=== PATIENT | female | born 1945 | race Caucasian/White ===

== ENCOUNTER → 2018-01-04 | Day surgery (SDC) | payer MEDICARE, OTHER ==
[~2018-01-04] MED LIST: ALBU2TAB PO; ALPR0.5T6 PO; ALUM1GRA MC; AMLO5TAB7 PO; ASCO500T3 PO; ASPI-252 PO; ASPI-482 PO; ATOR10TA60 PO; BUPR150T8 PO; BUPR1PAT8 TP; BUPR75TA5 PO; BUSP10TA PO; CARB200T PO; CARB25PO MC; CARV3.12 PO; CARV3.122 PO; CELE200C PO; CETI10CA PO; CETI10TA22 PO; CHOL100013 PO; CHOL500016 PO; CLON0.5T PO; CLOP75TA PO; CYAN10005 PO; CYCL10TA2 PO; DEXL60CA2 PO; DICL100G18 TP; DICL112S2 TP; DOCU100C28 PO; DOCU50CA6 PO; DULO20CA PO; DULO20CA17 PO; DULO60CA6 PO; Domperidone PO; ERYT250C8 PO; FENO43CA PO; FLUT9.9S NS; GABA-586 PO; GABA600T2 PO; GABA800T2 PO; HYDR-2758 PO; HYDR10TA2 PO; HYDR25TA PO; INSU100C4 SQ; INSU100I13 SQ; INSU100I27 SQ; INSU100V8 SQ; IPRA3AMP29 NEB; IV RINGERS,LACTATED 1000ML 1,000 ML IV SCH; LEVO500T59 PO; LIDOCAINE 1% PF 2 ML VIAL. ID PRN; LIDOCAINE 2% PF Vial for OR 5 ML VIAL. ONE; LISI-338 PO; LOPE2CAP PO; LOPE2TAB27 PO; LOSA25TA5 PO; MELO15TA23 PO; METF500T25 PO; METO25TA4 PO; METO50TA6 PO; MG T1TAB PO; MIRT15TA PO; MIRT15TA3 PO; MONT10TA6 PO; MONT10TA9 PO; MULT1TAB52 PO; NORT25CA PO; OMEG1CAP6 PO; OMEG300C PO; OMEP10CA3 PO; ONDA4TAB12 PO; PANT20TA2 PO; PNV1TABL25 PO; POLY17PO29 PO; POLY1GRA MC; PROAIR HFA8.5 GM IH; PROCHLORPERAZINE 10 MG/2 ML VIAL. IV PRN; PROM25TA10 PO; PROPOFOL 40 ML IV ONE; RANI150T2 PO; ROPI1TAB2 PO; SIMV10TA3 PO; SIMV5TAB PO; SODI650T PO; SUCR1TAB PO; SUMA50TA3 PO; TELM1TAB PO; TELM20TA PO; TELM80TA PO; TELM80TA8 PO; TIZA4TAB PO; TOPI25TA52 PO; TRI-SPRINTEC PO; ZONI100C PO
[2018-01-04 09:13] VITALS: BP 110/55
--- NOTE | 2018-01-07 15:08 | PATHOLOGY ---
[facility] Accession Number: [id number] . 01 Material submitted: . RANDOM COLON BIOPSY . 01 Clinical history: . Diarrhea . 02 Diagnosis: Random colon, biopsies: - Acute colitis, mild and focal. - No granulomas, architectural distortion, or features of chronicity identified. - See comment. [facility];01/07/2018 AGA/01/07/2018 . 02 Comment: A focal mild acute colitis is present. Granulomas, architectural distortion and other features of chronicity are not identified. The above findings can be observed in bowel preparation, infection, and an evolving inflammatory bowel disease. Definite features of microscopic colitis or inflammatory bowel disease are not identified. Clinical correlation is recommended. [facility];01/07/2018 . 02 Electronically signed: . Jas Urrutia MD, Pathologist NPI- [id number] . 01 Gross description: . Received in formalin labeled "Naomi Alberto, random colon BX," are multiple segments of sheets soft tissue measuring 1.6 x 0.4 x 0.1 cm in aggregate dimensions. The specimen is filtered and submitted entirely in cassette A1. (TSD; 01/04/2018) TOB/TOB . 02 Pathologist provided ICD-10: K52.9 . 02 CPT . 544163 Specimen Comment: A courtesy copy of this report has been sent to Specimen Comment: [phone], . Specimen Comment: Report sent to / DR SANDERS Performed at: 01 [facility] [address], [place], [place] [id number] MD Varinder Ramesh MD Phone: [phone] Performed at: [address] [id number] MD Naomi Temple MD Phone: [phone]
== END | disposition home or self-care (01) ==
LOC: ENDOS 07:14
PROVIDERS: ATTEND Internal Medicine Gastroenterology
DX: K64.0 First degree hemorrhoids (principal); F41.9 Anxiety disorder, unspecified; J45.909 Unspecified asthma, uncomplicated; F32.9 Major depressive disorder, single episode, unspecified; E11.9 Type 2 diabetes mellitus without complications; K21.9 Gastro-esophageal reflux disease without esophagitis; Z88.5 Allergy status to narcotic agent; Z88.8 Allergy status to other drugs, medicaments and biological substances; I25.2 Old myocardial infarction; D64.9 Anemia, unspecified; M19.90 Unspecified osteoarthritis, unspecified site; K58.9 Irritable bowel syndrome, unspecified; Z95.5 Presence of coronary angioplasty implant and graft; Z83.3 Family history of diabetes mellitus; Z79.82 Long term (current) use of aspirin; Z79.84 Long term (current) use of oral hypoglycemic drugs; Z79.899 Other long term (current) drug therapy; Z90.49 Acquired absence of other specified parts of digestive tract; Z90.710 Acquired absence of both cervix and uterus; Z98.890 Other specified postprocedural states
CPT/HCPCS: 45380; J2001; J2704; 82962; 88305

== ENCOUNTER 2018-11-08 14:56 | Inpatient (IN) | payer MEDICARE, OTHER ==
[~2018-11-08] VITALS: Ht 144.8 cm; Wt 72.6 kg
[2018-11-08] VITALS (8 sets, daily range): BP systolic 117–177; BP diastolic 57–94
[~2018-11-08 14:56] MED LIST changes: +ALBU2.5V8 IH; +AMLO5TAB10 PO; -AMLO5TAB7 PO; +AMOX1TAB11 PO; +CARV3.1210 PO; -CARV3.122 PO; +DOXY100T PO; -GABA-586 PO; +GABA300C18 PO; -GABA600T2 PO; +GABA600T7 PO; -GABA800T2 PO; +GABA800T5 PO; -HYDR-2758 PO; +HYDR-2761 PO; -IV RINGERS,LACTATED 1000ML 1,000 ML IV SCH; -LIDOCAINE 1% PF 2 ML VIAL. ID PRN; -LIDOCAINE 2% PF Vial for OR 5 ML VIAL. ONE; -LOSA25TA5 PO; +LOSA25TA54 PO; +MONT10TA49 PO; -MONT10TA6 PO; -MONT10TA9 PO; -OMEP10CA3 PO; +OMEP10CA4 PO; -PROAIR HFA8.5 GM IH; -PROCHLORPERAZINE 10 MG/2 ML VIAL. IV PRN; -PROPOFOL 40 ML IV ONE
[2018-11-08 15:13] LABS: BASO # 0.2 x10^3/uL (0.0-0.2); BASO % 1 % (0-3); EOS # 0.4 x10^3/uL (0.0-0.7); EOS % 2 % (0-3); HEMATOCRIT 37.1 % (36.0-47.0); HEMOGLOBIN 12.4 g/dL (12.0-15.5); LYMPH # 5.6 x10^3/uL (1.0-4.8); LYMPH % 34 % (24-48); MEAN CORPUSCULAR HEMOGLOBIN 30 pg (25-35); MEAN CORPUSCULAR HGB CONC 33 g/dL (31-37); MEAN CORPUSCULAR VOLUME 91 fL (79-100); MONO # 1.3 x10^3/uL (0.0-1.1); MONO % 8 % (0-9); NEUT % 55 % (31-73); PLATELET COUNT 565 x10^3/uL (140-400); RED BLOOD COUNT 4.08 x10^6/uL (3.50-5.40); RED CELL DISTRIBUTION WIDTH 14.9 % (11.5-14.5); WHITE BLOOD COUNT 16.5 x10^3/uL (4.0-11.0)
[2018-11-08 15:23] LABS: PROTHROMBIN TIME PATIENT 14.1 SEC (11.7-14.0)
--- NOTE | 2018-11-08 15:35 | RAD ---
EXAM: CHEST 1 VIEW History: Chest pain COMPARISON: 01/08/2018 TECHNIQUE: Single portable radiograph of the chest FINDINGS: The cardiac silhouette is unremarkable. The lungs are clear bilaterally. The costophrenic sulci are clear and well demarcated. IMPRESSION: No radiographic evidence of an acute cardiopulmonary process. Electronically signed by: You Perez MD (11/08/2018 3:32 PM) [id number]
[2018-11-08 15:38] LABS: CALCIUM 9.8 mg/dL (8.5-10.1); CREATININE 1.2 mg/dL (0.6-1.0); POTASSIUM 3.4 mmol/L (3.5-5.1)
[2018-11-08 15:51] LABS: ALBUMIN/GLOBULIN RATIO 0.7 (1.0-1.7); MAGNESIUM 1.3 mg/dL (1.8-2.4); TOTAL BILIRUBIN 0.2 mg/dL (0.2-1.0); TOTAL PROTEIN 9.4 g/dL (6.4-8.2)
--- NOTE | 2018-11-08 16:00 | PHYS DOC ---
Past Medical History Past Medical History: Asthma, Diabetes-Type I, High Cholesterol, Hypertension, FL Additional Past Medical Histor: unknown Past Surgical History: Hysterectomy, Splenectomy, Other Additional Past Surgical Histo: HERNIA,2 STENTS Alcohol Use: None Drug Use: None Adult General Chief Complaint Chief Complaint: CHEST PAIN HPI HPI Patient is a 73 year old female who brought in by EMS because of chest pain. Patient complaining of intermittent episodes of substernal bilateral chest pain for the last 3 day that last for several minutes and repeated frequency with radiation to her back. Patient rated her pain 9/10 during episodes of pain and denies chest pain at arrival to ER. Patient complaining of shortness of breath and palpitation and generalized weakness without fever and chills, nausea and vomiting, focal neuro deficit. Patient was seen by his primary care physician office and had EKG that showed ST elevation in V1 and DIII and 911 was called and sent to ER for evaluation. Patient had Nitro spray at primary care physician office with resulting care chest pain. Patient also had total of 324 mg of baby aspirin given by primary care physician and EMS. Patient had history of FL in October 2017 and had 2 stent placement. Review of Systems Review of Systems Constitutional: Denies fever or chills [] Eyes: Denies change in visual acuity, redness, or eye pain [] HENT: Denies nasal congestion or sore throat [] Respiratory: Denies cough, reports shortness of breath [] Cardiovascular: No additional information not addressed in HPI [] GI: Denies abdominal pain, nausea, vomiting, bloody stools or diarrhea [] : Denies dysuria or hematuria [] Musculoskeletal: Denies back pain or joint pain [] Integument: Denies rash or skin lesions [] Neurologic: Denies headache, focal weakness or sensory changes [] Endocrine: Denies polyuria or polydipsia [] All other systems were reviewed and found to be within normal limits, except as documented in this note. Current Medications Current Medications Current Medications Medications (Trade) Dose Ordered Sig/Morgan Start Time Stop Time Status Last Admin Dose Admin Heparin Sodium (Porcine) (Heparin Sodium) 1,650 unit PRN Q6HRS PRN 11/08/18 16:00 Heparin Sodium/ Dextrose 500 ml @ 0 mls/hr CONT PRN 11/08/18 16:00 11/08/18 16:08 12 MLS/HR Allergies Allergies Allergies Coded Allergies Type Severity Reaction Last Updated Verified grapefruit Allergy Intermediate 01/04/18 Yes hydromorphone Allergy Intermediate 01/04/18 Yes metoclopramide Allergy Intermediate 01/04/18 Yes morphine Allergy Intermediate BROKE OUT WITH RASH 01/04/18 Yes phenytoin Allergy Intermediate 01/04/18 Yes ropinirole Allergy Intermediate 01/04/18 Yes temazepam Allergy Intermediate 01/04/18 Yes trazodone Allergy Intermediate 01/04/18 Yes zolpidem Allergy Intermediate 01/04/18 Yes Physical Exam Physical Exam Constitutional: Well developed, well nourished, mild distress, non-toxic appearance. [] HENT: Normocephalic, atraumatic, oropharynx moist. Eyes: PERRLA, EOMI, conjunctiva normal, no discharge. [] Neck: Normal range of motion, no tenderness, supple, no stridor. [] Cardiovascular: Tachycardia, no murmur [] Lungs & Thorax: Bilateral breath sounds clear to auscultation [] Abdomen: Bowel sounds normal, soft, no tenderness, no masses, no pulsatile masses, large ventral hernia. [] Skin: Warm, dry, no erythema, no rash. [] Back: No tenderness, no CVA tenderness. [] Extremities: No tenderness, no cyanosis, no clubbing, ROM intact, no edema. [] Neurologic: Alert and oriented X 3, normal motor function, normal sensory function, no focal deficits noted. [] Psychologic: Affect normal, judgement normal, mood normal. [] Current Patient Data Vital Signs Vital Signs Date Time Temp Pulse Resp B/P (MAP) Pulse Ox O2 Delivery O2 Flow Rate FiO2 11/08/18 14:56 98.7 114 18 207/95 (132) 97 Room Air 98.7 Lab Values Laboratory Tests Test 11/08/18 14:58 White Blood Count 16.5 x10^3/uL (4.0-11.0) H Red Blood Count 4.08 x10^6/uL (3.50-5.40) Hemoglobin 12.4 g/dL (12.0-15.5) Hematocrit 37.1 % (36.0-47.0) Mean Corpuscular Volume 91 fL (79-100) Mean Corpuscular Hemoglobin 30 pg (25-35) Mean Corpuscular Hemoglobin Concent 33 g/dL (31-37) Red Cell Distribution Width 14.9 % (11.5-14.5) H Platelet Count 565 x10^3/uL (140-400) H Neutrophils (%) (Auto) 55 % (31-73) Lymphocytes (%) (Auto) 34 % (24-48) Monocytes (%) (Auto) 8 % (0-9) Eosinophils (%) (Auto) 2 % (0-3) Basophils (%) (Auto) 1 % (0-3) Neutrophils # (Auto) 9.0 x10^3/uL (1.8-7.7) H Lymphocytes # (Auto) 5.6 x10^3/uL (1.0-4.8) H Monocytes # (Auto) 1.3 x10^3/uL (0.0-1.1) H Eosinophils # (Auto) 0.4 x10^3/uL (0.0-0.7) Basophils # (Auto) 0.2 x10^3/uL (0.0-0.2) Prothrombin Time 14.1 SEC (11.7-14.0) H Prothrombin Time INR 1.1 (0.8-1.1) Sodium Level 136 mmol/L (136-145) Potassium Level 3.4 mmol/L (3.5-5.1) L Chloride Level 98 mmol/L (98-107) Carbon Dioxide Level 21 mmol/L (21-32) Anion Gap 17 (6-14) H Blood Urea Nitrogen 25 mg/dL (7-20) H Creatinine 1.2 mg/dL (0.6-1.0) H Estimated GFR (Cockcroft-Gault) 44.0 BUN/Creatinine Ratio 21 (6-20) H Glucose Level 246 mg/dL (70-99) H Lactic Acid Level 4.2 mmol/L (0.4-2.0) *H Calcium Level 9.8 mg/dL (8.5-10.1) Magnesium Level 1.3 mg/dL (1.8-2.4) L Total Bilirubin 0.2 mg/dL (0.2-1.0) Aspartate Amino Transferase (AST) 81 U/L (15-37) H Alanine Aminotransferase (ALT) 30 U/L (14-59) Alkaline Phosphatase 84 U/L (46-116) Creatine Kinase 378 U/L (26-192) H Creatine Kinase MB (Mass) 23.4 ng/mL (0.0-3.6) H Creatine Kinase MB Relative Index 6.2 % (0-4) H Troponin I Quantitative 28.899 ng/mL (0.000-0.055) PZ-Zrj-I-Type Natriuretic Peptide 4244 pg/mL (0-124) H Total Protein 9.4 g/dL (6.4-8.2) H Albumin 4.0 g/dL (3.4-5.0) Albumin/Globulin Ratio 0.7 (1.0-1.7) L Lipase 125 U/L (73-393) Laboratory Tests 11/08/18 14:58 Laboratory Tests 11/08/18 14:58 EKG EKG Take interpreted by me. EKG at 1456 showed sinus tachycardia at rate of 115, left fourth axis, LVH, mild ST elevation in V1 and lead [address]-T elevation at V2, no reciprocal changes. Radiology/Procedures Radiology/Procedures [][facility] [address] [place] [address] IMAGING REPORT Signed PATIENT: ALDA CORRAL ACCOUNT: [id number] : 1945 LOCATION: ER AGE: 73 SEX: F EXAM STATUS: PRE ER ORD. PHYSICIAN: JANETTE PORTER MD REASON: chest pain, SOA PROCEDURE: PORTABLE CHEST 1V EXAM: CHEST 1 VIEW History: Chest pain COMPARISON: 01/08/2018 TECHNIQUE: Single portable radiograph of the chest FINDINGS: The cardiac silhouette is unremarkable. The lungs are clear bilaterally. The costophrenic sulci are clear and well demarcated. IMPRESSION: No radiographic evidence of an acute cardiopulmonary process. Electronically signed by: You Perez MD (11/08/2018 3:32 PM) [id number] DICTATED and SIGNED BY: YOU PEREZ MD DATE: 11/08/18 1533 Course & Med Decision Making Course & Med Decision Making Pertinent Labs and Imaging studies reviewed. (See chart for details) Evaluation of patient in ER showed 73-year-old female patient brought in by EMS from doctor's office because of chest pain for 3 days without chest pain at arrival to ER. EKG ST elevation in V1 and V3 and cardioversion call was consulted at 1517 and cardiology nurse practitioner presented to ER and evaluated the patient. Patient had elevation of on cardiac enzymes and lactic acid of 4.2. Patient did not have fever or hypotension and most likely her lactic acid was elevated because of poor circulation therefore IV fluid was not given and only antibiotic was started. Dr. Zepeda presented to ER and evaluated the patient and recommended to start heparin bolus and drip and nitro drip. She was chest pain-free while she was in ER. Dr. Zepeda did not recommend cardiac catheterization today.Patient requiring admission for further evaluation and treatment. Discussed with Dr. Shah who is in agreement with admission. Discussed findings and plan with patient and family, who acknowledge understanding and agreement. Dragon Disclaimer Dragon Disclaimer This electronic medical record was generated, in whole or in part, using a voice recognition dictation system. Departure Departure Impression: Primary Impression: NSTEMI (non-ST elevated myocardial infarction) Additional Impressions: Hypomagnesemia Renal insufficiency Uncontrolled diabetes mellitus Severe sepsis Congestive heart failure Disposition: ADMITTED INPATIENT (admitted at 1608) Admitting Physician: RINS (dr Shah accepted admission at 1607) Condition: GUARDED Referrals: NIDIA SANDERS MD (PCP) The HEART Score for CP Pts HEART Score for Chest Pain: HEART Score for Chest Pain Response (Comments) Value History Moderately Suspicious [address] Depression 2 Age > 65 2 Risk Factors >3 Risk Factors or Hx CAD 2 Troponin >3 x Normal Limit 2 Total 9 Risk Factors: Risk Factors: DM, Current or recent (<one month) smoker, HTN, HLP, family history of CAD, obesity. Risk Scores: Score 0 - 3: 2.5% MACE over next 6 weeks - Discharge Home Score 4 - 6: 20.3% MACE over next 6 weeks - Admit for Clinical Observation Score 7 - 10: 72.7% MACE over next 6 weeks - Early Invasive Strategies Critical Care Time Critical care time was 90 minutes exclusive of procedures. Date and Time of Reassessment Date: Nov 08, 2018 Time: 16:10 Fluid Challenge Is the fluid challenge complet: No (because of acute non-STEMI IV fluid challenge was not started.) IBW Target Volume Used: No BMI > 30: No Vital Signs Vital Signs: Vital Signs Date Time Temp Pulse Resp B/P (MAP) Pulse Ox O2 Delivery O2 Flow Rate FiO2 11/08/18 14:56 98.7 114 18 207/95 (132) 97 Room Air 98.7 Temperature Source: Oral Cardiovascular Pulse Rhythm: Regular Heart: No rubs, clicks or gallop, S1 and S2 normal Lung Sounds Breath Sounds: Clear Capillary Refil Capillary Refill: Rt Hand < 3 seconds Peripheral Pulse Pulse Location: Radial Pulse Strength: Normal (2+) Pulse Assessment Method: NIBP Problem Qualifiers Additional Impressions: Uncontrolled diabetes mellitus Diabetes mellitus type: other specified (including ZACH) Glycemic state: with hyperglycemia Qualified Codes: E13.65 - Other specified diabetes mellitus with hyperglycemia Congestive heart failure Heart failure type: unspecified Heart failure chronicity: unspecified Qualified Codes: I50.9 - Heart failure, unspecified JANETTE PORTER MD Nov 08, 2018 16:00
[2018-11-08] MEDS: HEPARIN 25,000UTS/500ML PREMIX 500 ML IV PRN (16:08)
[2018-11-08] MEDS ORDERED: MAGNESIUM SULFATE 4GM 100 ML IV ONE (16:15)
[2018-11-08] MEDS ORDERED: PIPERACILLIN/TAZOBACTAM 3.375 GM in IV NORMAL SALINE 50ML 50 ML IV ONE (16:15)
[2018-11-08] MEDS ORDERED: LABETALOL 20 MG/4 ML DISP.SYRIN. IVP ONE (16:15)
[2018-11-08] MEDS ORDERED: HEPARIN for IV BOLUS 10,000 UNIT/10 ML VIAL. IV ONE (16:15)
[2018-11-08] MEDS ORDERED: POTASSIUM CHLORIDE 20 MEQ TABLET.ER. PO ONE (16:15)
[2018-11-08] MEDS ORDERED: IV NORMAL SALINE 1000ML BAG 1,000 ML IV ONE (16:15)
[2018-11-08] MEDS ORDERED: NITROGLYCERIN PREMIX 250 ML IV ONE ×2 (16:15)
--- NOTE | 2018-11-08 16:22 | PDOC2 ---
CARDIAC CONSULT DATE OF CONSULT Date of Consult DATE: 11/08/18 TIME: 16:03 REASON FOR CONSULT Reason for Consult: Chest pain REFERRING PHYSICIAN Referring Physician: Leeann SOURCE Source: Chart review, Patient HISTORY OF PRESENT ILLNESS HISTORY OF PRESENT ILLNESS This is a pleasant 73 yo female admitted for complains of chest pain. Reports that her symptoms started 3 days ago. She has been having intermittent left c hest tightness, left side shoulder tightness and gums aching with associated SOA and nausea and diaphoresis. Reports she had a nontraumatic fall Sunday not because of dizziness but she missed her footing and fell. No passing out and no palpitations. She went to her PCP today as her symptoms have been increasing and has not let her go to sleep especially last night. EKG was done at her PCPs office and was told that it was abnormal and she needed to go to ED via ambulance. She was given NTG spray and ASA. Her symptoms got a little better after the NTG. 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 See report as noted below. She has been doing well since then till this week. 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) FAMILY HISTORY Family History: Coronary Artery Disease (mother) SOCIAL HISTORY Smoke: No ALCOHOL: none Drugs: None Lives: with Family ALLERGIES ALLERGIES: Coded Allergies: grapefruit (Verified Allergy, Intermediate, 01/04/18) hydromorphone (Verified Allergy, Intermediate, 01/04/18) metoclopramide (Verified Allergy, Intermediate, 01/04/18) morphine (Verified Allergy, Intermediate, BROKE OUT WITH RASH, 01/04/18) phenytoin (Verified Allergy, Intermediate, 01/04/18) ropinirole (Verified Allergy, Intermediate, 01/04/18) TOLERATES ROPINIROLE temazepam (Verified Allergy, Intermediate, 01/04/18) Tolerates alprazolam trazodone (Verified Allergy, Intermediate, 01/04/18) zolpidem (Verified Allergy, Intermediate, 01/04/18) ROS Review of System 14 point ROS evaluated with pertinent positives noted per HPI PHYSICAL EXAM General: Alert, Oriented X3, Cooperative, No acute distress HEENT: Atraumatic, Mucous membr. moist/pink Lungs: Clear to auscultation, Normal air movement Heart: Regular rate (SR/ST), Normal S1, Normal S2, Other (S3; 3/6 systolic murmur to MAGGY border) Abdomen: Soft, No tenderness Extremities: No cyanosis, No edema Skin: No breakdown, No significant lesion Neuro: Normal speech, Sensation intact Psych/Mental Status: Mental status NL, Mood NL MUSCULOSKELETAL: Osteoarthritic changes both hands VITALS/I&O VITALS/I&O: Vital Signs Date Time Temp Pulse Resp B/P (MAP) Pulse Ox O2 Delivery O2 Flow Rate FiO2 11/08/18 14:56 98.7 114 18 207/95 (132) 97 Room Air 98.7 LABS Lab: Laboratory Tests Test 11/08/18 14:58 White Blood Count 16.5 x10^3/uL (4.0-11.0) H Red Blood Count 4.08 x10^6/uL (3.50-5.40) Hemoglobin 12.4 g/dL (12.0-15.5) Hematocrit 37.1 % (36.0-47.0) Mean Corpuscular Volume 91 fL (79-100) Mean Corpuscular Hemoglobin 30 pg (25-35) Mean Corpuscular Hemoglobin Concent 33 g/dL (31-37) Red Cell Distribution Width 14.9 % (11.5-14.5) H Platelet Count 565 x10^3/uL (140-400) H Neutrophils (%) (Auto) 55 % (31-73) Lymphocytes (%) (Auto) 34 % (24-48) Monocytes (%) (Auto) 8 % (0-9) Eosinophils (%) (Auto) 2 % (0-3) Basophils (%) (Auto) 1 % (0-3) Neutrophils # (Auto) 9.0 x10^3/uL (1.8-7.7) H Lymphocytes # (Auto) 5.6 x10^3/uL (1.0-4.8) H Monocytes # (Auto) 1.3 x10^3/uL (0.0-1.1) H Eosinophils # (Auto) 0.4 x10^3/uL (0.0-0.7) Basophils # (Auto) 0.2 x10^3/uL (0.0-0.2) Prothrombin Time 14.1 SEC (11.7-14.0) H Prothrombin Time INR 1.1 (0.8-1.1) Sodium Level 136 mmol/L (136-145) Potassium Level 3.4 mmol/L (3.5-5.1) L Chloride Level 98 mmol/L (98-107) Carbon Dioxide Level 21 mmol/L (21-32) Anion Gap 17 (6-14) H Blood Urea Nitrogen 25 mg/dL (7-20) H Creatinine 1.2 mg/dL (0.6-1.0) H Estimated GFR (Cockcroft-Gault) 44.0 BUN/Creatinine Ratio 21 (6-20) H Glucose Level 246 mg/dL (70-99) H Calcium Level 9.8 mg/dL (8.5-10.1) Magnesium Level 1.3 mg/dL (1.8-2.4) L Total Bilirubin 0.2 mg/dL (0.2-1.0) Aspartate Amino Transferase (AST) 81 U/L (15-37) H Alanine Aminotransferase (ALT) 30 U/L (14-59) Alkaline Phosphatase 84 U/L (46-116) Creatine Kinase 378 U/L (26-192) H Creatine Kinase MB (Mass) 23.4 ng/mL (0.0-3.6) H Creatine Kinase MB Relative Index 6.2 % (0-4) H Troponin I Quantitative 28.899 ng/mL (0.000-0.055) WT-Yld-U-Type Natriuretic Peptide 4244 pg/mL (0-124) H Total Protein 9.4 g/dL (6.4-8.2) H Albumin 4.0 g/dL (3.4-5.0) Albumin/Globulin Ratio 0.7 (1.0-1.7) L Lipase 125 U/L (73-393) Laboratory Tests 11/08/18 14:58 Laboratory Tests 11/08/18 14:58 HEART CATH HEART CATH Access: Under 2% lidocaine local anesthesia a 6 Kiswahili introducer sheath was placed in the right common femoral artery via the modified Seldinger technique using an 18-gauge needle and a J-tipped guidewire. Heparin weight-based bolus dosing was used to achieve and maintain an ACT greater than 200. The patient received 1 bolus of tirofiban. The patient was previously loaded with aspirin and Plavix. Subsequently a 6 Kiswahili EBU 3.5 guide catheter was engaged into the left main and repeat angiography confirmed previous LAD stenoses. Next, a 0.014 inch pro- water wire was used to traverse the proximal LAD stenosis and this was angiopl astied multiple times with a 2.0 x 20, 2.5 x 12 and 3.0 x 12 mm compliant and noncompliant balloons. Ultimately, a 2.5 x 28 mm Alpine drug-eluting stent was able to be delivered with the use of a guideliner with excellent expansion and distal ISHAAN-3 flow. A 80-90% apical LAD stenosis was then noted in the vessel segment that was approximately 2 mm. Due to the apical LAD providing collaterals to the RCA it was felt that angioplasty of the's lesion would be beneficial for long-term management. Due to significant tortuosity and plaque there was difficulty navigating this lesion and therefore a Choice PT wire was used and ultimately this was also angioplastied with a 2.0 x 12 mm balloon and stented with a 2.25 x 15 mm Alpine drug-eluting stent. Final post-PCI angiography demonstrated excellent stent expansion in the proximal and apical LAD with ISHAAN- 3 flow in the vessel and no evidence of guide or wire related complications. There was residual disease of 80% noted in the inferior branch of the first obtuse marginal which is also a vessel approximately 2 mm in size and a proximal 60% stenosis in the first diagonal. In light of contrast use, chronic kidney disease and lack of any significant chest pain these lesions were deferred for intervention at this time. Limited angiography of the right common femoral artery revealed adequate vessel size for closure device and this was closed with an Angio-Seal product. The patient tolerated the procedure well and there were no immediate complications. Contrast load 150 mL of Visipaque. This case was complex due to significant calcification requiring the use of a guideliner and tortuosity of the vessel. Conclusion 1. Successful complex PCI of severe calcified proximal and apical LAD disease with implantation of a 2.5 x 28 mm and 2.25 x 15 mm Alpine drug-eluting stents. Recommendations Aspirin 81 mg daily indefinitely. Plavix 75 DAILY indefinitely if tolerated, otherwise would recommend at least 3 months of therapy. Continue statin therapy and referral for cardiac rehabilitation. Monitor for renal sufficiency given to contrast load to the last 48 hours. DATE: 11/01/17 1110 LEFT VENTRICULOGRAM: Deferred due to prior history of renal insufficiency. CORONARY ANGIOGRAPHY: LM is a moderate short caliber vessel with normal angiographic appearance. LAD is a small to moderate sized heavily calcified vessel with a proximal to mid long 80% stenosis. There is a distal focal 80% stenosis. LCx is a moderate caliber non-dominant vessel with a proximal 50% stenosis. OM1 is a moderate caliber bifurcating vessel with a 80% stenosis involving the inferior branch. RCA is a small caliber signfiicantly negatively remodeled vessel with a proximal 60%, and mid to distal diffuse 80% stenosis followed by a distal subtotal occlusion. There are faint left to left collaterals noted. Conclusion 1. Aborted STEMI 2. Severe diffuse 3V CAD not easily amenable to PCI. 3. Normal left sided filling pressures. Recommendations Due to the patient's signficant comorbidities (anemia and multiple hematologic issues), lack of chest pain, resolution of ST elevation and significant diffuse disease, further intervention was deferred in favor of challenging her with anticoagulation and proceeding with high risk PCI after discussion with hem/onc and family. DATE: 10/30/172051 ASSESSMENT/PLAN ASSESSMENT/PLAN 1. ACS 2. CAD: see 2018 [facility] 3. Accelerated HTN 4. HLP 5. Nontraumatic mechanical fall: Sunday. Recommendations 1. TTE, trend troponin, lipids 2. Plan for [facility]. Will discuss with primary pot room tapper 3. NTG drip, Heparin drip. ASA. Start on IVF. 4. Labetolol IV x1. 5. Replace Mg and KDARRION COMER APRN Nov 08, 2018 16:22
[2018-11-08] MEDS ORDERED: DEXTROSE 50% 25 GM / 50ML DISP.SYRIN. IV PRN ×2 (16:30)
--- NOTE | 2018-11-08 16:30 | PDOC1 ---
History and Physical Date of Admission Date of Admission DATE: 11/08/18 TIME: 16:29 Identification/Chief Complaint Chief Complaint cp Source Source: Caregiver, Chart review, Patient History of Present Illness History of Present Illness 73 white female obese, BMI 32 came from home accompanied by Maybe a son, full code, polypharmacy with at least 30 or even 40 different medications, known hypertensive CAD diabetes on insulin, unknown A1c. Chest pain, no diaphoresis, some relief by NTG,. lasted mins to hrs intermittent x 3 days now. initially, called in STEMI but that did not prove to be the case. Troponin 29. Cardiology at bedside. Heparin drip, nitro drip, CVC bed. Thoughts about LHC in the discussion. WBC 16.5, platelets 565 with a lactate 4.2 likely from the cardiac issues going on. Mild hypokalemia 3.4- 40 by mouth KCl by cardiology. Check hemoglobin A1c, she claims compliance aspirin and Plavix, continue other home meds and other supportive meds PT OT when cardiac issue stable COlace to avoid training Past Medical History Cardiovascular: CAD, CHF, HTN, SD, Hyperlipidemia, Pulmonary hypertension Pulmonary: COPD GI: Other Heme/Onc: Anemia NOS Psych: No pertinent hx Musculoskeletal: No pain Rheumatologic: No pertinent hx Renal/: No pertinent hx Endocrine: No pertinent hx, Other Past Surgical History Past Surgical History: Appendectomy, Cholecystectomy, Tonsillectomy, Hysterectomy, Other Family History Family History: Coronary Artery Disease (mother) Family History: Parent Social History Smoke: No ALCOHOL: none Drugs: None Current Problem List Problem List Problems Medical Problems: (1) NSTEMI (non-ST elevated myocardial infarction) Status: Acute Current Medications Current Medications Current Medications Heparin Sodium/ Dextrose 500 ml @ 0 mls/hr CONT PRN IV SEE I/O RECORD Last administered on 11/08/18at 16:08; Start 11/08/18 at 16:00 Heparin Sodium (Porcine) (Heparin Sodium) 1,650 unit PRN Q6HRS PRN IV FOR UFH LEVEL LESS THAN 0.2; Start 11/08/18 at 16:00 Heparin Sodium (Porcine) (Heparin Sodium) 4,000 unit 1X ONCE IV Last administered on 11/08/18at 16:09; Start 11/08/18 at 16:15; Stop 11/08/18 at 16:16 ; Status DC Nitroglycerin/ Dextrose 250 ml @ 0 mls/hr 1X ONCE IV ; Start 11/08/18 at 16:15; Stop 11/08/18 at 16:16; Status DC Labetalol HCl (Normodyne Iv Push) 20 mg 1X ONCE IVP ; Start 11/08/18 at 16:15; Stop 11/08/18 at 16:16; Status DC Piperacillin Sod/ Tazobactam Sod 3.375 gm/Sodium Chloride 50 ml @ 100 mls/hr 1X ONCE IV ; Start 11/08/18 at 16:15; Stop 11/08/18 at 16:44 Nitroglycerin/ Dextrose 250 ml @ 0 mls/hr 1X ONCE IV ; Start 11/08/18 at 16:15; Stop 11/08/18 at 16:16; Status UNV Potassium Chloride (Klor-Con) 40 meq 1X ONCE PO ; Start 11/08/18 at 16:15; Stop 11/08/18 at 16:16; Status DC Magnesium Sulfate/ Dextrose 100 ml @ 25 mls/hr 1X ONCE IV ; Start 11/08/18 at 16:15; Stop 11/08/18 at 20:14 Sodium Chloride 1,000 ml @ 60 mls/hr 1X ONCE IV ; Start 11/08/18 at 16:15; Stop 11/09/18 at 08:54 Albuterol Sulfate (Ventolin Neb Soln) 2.5 mg RTQID INH ; Start 11/08/18 at 20:00 Amlodipine Besylate (Norvasc) 5 mg DAILY PO ; Start 11/09/18 at 09:00 Ascorbic Acid (Vitamin C) 500 mg BID PO ; Start 11/08/18 at 21:00 Atorvastatin Calcium (Lipitor) 10 mg HS PO ; Start 11/08/18 at 21:00 Bupropion HCl (Wellbutrin Sr) 150 mg BID PO ; Start 11/08/18 at 21:00 Buspirone HCl (Buspar) 10 mg DAILY PO ; Start 11/09/18 at 09:00; Status UNV Carbamazepine (TEGretol) 200 mg QHS PO ; Start 11/08/18 at 21:00; Status UNV Cetirizine HCl (ZyrTEC) 10 mg DAILY PO ; Start 11/09/18 at 09:00 Clonazepam (KlonoPIN) 0.5 mg TID PO ; Start 11/08/18 at 21:00; Status UNV Clopidogrel Bisulfate (Plavix) 75 mg DAILY PO ; Start 11/09/18 at 09:00 Cyanocobalamin (Vitamin B-12) 1,000 mcg DAILY PO ; Start 11/09/18 at 09:00 Diclofenac Sodium (Voltaren) 100 mac QID TP ; Start 11/08/18 at 17:00 Albuterol/ Ipratropium (Duoneb) 3 ml TID NEB ; Start 11/08/18 at 21:00; Status UNV Metoprolol Tartrate (Lopressor) 12.5 mg DAILY PO ; Start 11/09/18 at 09:00; Status UNV Nortriptyline HCl (Pamelor) 50 mg HS PO ; Start 11/08/18 at 21:00 Fish Oil (Fish Oil) 1,000 mg DAILY PO ; Start 11/09/18 at 09:00 Sodium Bicarbonate (Sodium Bicarbonate) 650 mg DAILY PO ; Start 11/09/18 at 09:00 Non-Formulary Medication (Cholecalciferol (Vitamin D3) (Vitamin D)) 1 cap DAILY PO ; Start 11/09/18 at 09:00; Status UNV Duloxetine HCl (Cymbalta) 60 mg DAILY PO ; Start 11/09/18 at 09:00 Non-Formulary Medication (Erythromycin Base (Erythromycin)) 125 mg BID PO ; Start 11/08/18 at 21:00; Status UNV Fluticasone Propionate (Flonase) 2 spray DAILY NS ; Start 11/09/18 at 09:00 Insulin Human Lispro (HumaLOG) 15 units TIDWMEALS SQ ; Start 11/08/18 at 17:00 Insulin Glargine (Lantus) 80 units Q12HR SQ ; Start 11/08/18 at 21:00 Non-Formulary Medication (Lisinopril ) 1 tab DAILY PO ; Start 11/09/18 at 09:00; Status UNV Metformin HCl (Glucophage Xr) 1,000 mg BIDWMEALS PO ; Start 11/08/18 at 17:00 Non-Formulary Medication (Mirtazapine ) 1 tab QHS PO ; Start 11/08/18 at 21:00; Status UNV Multivitamins (Thera M Plus) 1 tab DAILY PO ; Start 11/09/18 at 09:00 Pantoprazole Sodium (Protonix) 40 mg DAILYAC PO ; Start 11/09/18 at 07:30 Non-Formulary Medication (Ropinirole Hcl ) 1 mg QHS PO ; Start 11/08/18 at 21:00; Status UNV Non-Formulary Medication (Zonisamide ) 100 mg TID PO ; Start 11/08/18 at 21:00; Status UNV Insulin Human Lispro (HumaLOG) 0-9 UNITS TIDWMEALS SQ ; Start 11/08/18 at 17:00; Status UNV Dextrose (Dextrose 50%-Water Syringe) 12.5 gm PRN Q15MIN PRN IV SEE COMMENTS; Start 11/08/18 at 16:30; Status UNV Dextrose (Dextrose 50%-Water Syringe) 12.5 gm PRN Q15MIN PRN IV SEE COMMENTS; Start 11/08/18 at 16:30; Status UNV Active Scripts Active Amox Tr-K Clv 875-125 Mg Tab (Amoxicillin/Potassium Clav) 1 Each Tablet 1 Tab PO DAILY Doxycycline Hyclate 100 Mg Tablet 100 Mg PO BID Reported Klonopin (Clonazepam) 0.5 Mg Tablet 0.5 Mg PO TID Fish Oil 1,000 Mg Capsule (Coalgate-3 Fatty Acids/Fish Oil) 1 Each Capsule 1 Each PO TID Cymbalta (Duloxetine Hcl) 60 Mg Capsule.dr 60 Mg PO DAILY Loperamide (Loperamide Hcl) 2 Mg Capsule 2 Mg PO Zyrtec (Cetirizine Hcl) 10 Mg Tablet 1 Tab PO DAILY Zonisamide 100 Mg Capsule 100 Mg PO TID Sodium Bicarbonate 650 Mg Tablet 1 Tab PO DAILY Ranitidine Hcl 150 Mg Tablet 150 Mg PO DAILY Protonix (Pantoprazole Sodium) 20 Mg Tablet.dr 40 Mg PO DAILY Nortriptyline Hcl 25 Mg Capsule 50 Mg PO HS Metoprolol Tartrate 25 Mg Tablet 0.5 Tab PO DAILY Duoneb 0.5-3(2.5) Mg/3 Ml (Albuterol/Ipratropium) 3 Ml Ampul.neb 3 Ml NEB TID Erythromycin (Erythromycin Base) 250 Mg Capsule.dr 125 Mg PO BID Clopidogrel (Clopidogrel Bisulfate) 75 Mg Tablet 1 Tab PO DAILY Atorvastatin Calcium 10 Mg Tablet 10 Mg PO HS Multivitamins (Multivitamin) 1 Each Tablet 1 Tab PO DAILY Mirtazapine 15 Mg Tablet 1 Tab PO QHS Lisinopril 5 Mg Tablet 1 Tab PO DAILY Vitamin B-12 (Cyanocobalamin (Vitamin B-12)) 1,000 Mcg Tablet 1 Tab PO DAILY Buspirone Hcl 10 Mg Tablet 1 Tab PO DAILY Ascorbic Acid 500 Mg Tablet 500 Mg PO BID Amlodipine Besylate 5 Mg Tablet 5 Mg PO DAILY Voltaren (Diclofenac Sodium) 100 Gm Gel..gram. 100 Gm TP QID Levemir Flextouch (Insulin Detemir) 100 Unit/1 Ml Insuln.pen 80 Unit SQ BID Flonase Allergy Relief (Fluticasone Propionate) 9.9 Ml [place].susp 2 Spr NS DAILY Tegretol (Carbamazepine) 200 Mg Tablet 1 Tab PO QHS Wellbutrin Sr (Bupropion Hcl) 150 Mg Tablet.er 1 Tab PO BID Proair Hfa Inhaler (Albuterol Sulfate) 8.5 Gm Hfa.aer.ad 2 Puff IH QID Aspir 81 (Aspirin) 81 Mg Tablet.dr 81 Mg PO DAILY Metformin Hcl Er (Metformin Hcl) 500 Mg Tab.er.24 1,000 Mg PO BIDAC Ropinirole Hcl 1 Mg Tablet 1 Mg PO QHS Novolog (Insulin Aspart) 100 Unit/1 Ml Cartridge 15 Unit SQ TIDAC Allergies Allergies: Coded Allergies: grapefruit (Verified Allergy, Intermediate, 01/04/18) hydromorphone (Verified Allergy, Intermediate, 01/04/18) metoclopramide (Verified Allergy, Intermediate, 01/04/18) morphine (Verified Allergy, Intermediate, BROKE OUT WITH RASH, 01/04/18) phenytoin (Verified Allergy, Intermediate, 01/04/18) ropinirole (Verified Allergy, Intermediate, 01/04/18) TOLERATES ROPINIROLE temazepam (Verified Allergy, Intermediate, 01/04/18) Tolerates alprazolam trazodone (Verified Allergy, Intermediate, 01/04/18) zolpidem (Verified Allergy, Intermediate, 01/04/18) ROS Review of System As per history of present illness, the rest of ROS 14 point negative Physical Exam General: Alert, Oriented X3, Cooperative, No acute distress HEENT: Atraumatic, PERRLA, EOMI Lungs: Clear to auscultation, Normal air movement Heart: S1S2, RRR, no thrills, no rubs, no gallops, no murmurs Cardiovascular: S1, S2 Abdomen: Normal bowel sounds, Soft, No tenderness, No hepatosplenomegaly, No masses Rectal Exam: not examined PELVIC: Nml ext genitalia Extremities: No clubbing, No cyanosis, No edema, Normal pulses, No tenderness/swelling Skin: No rashes, No breakdown, No significant lesion Neuro: Normal gait, Normal speech, Strength at 5/5 X4 ext, Normal tone, Sensation intact, Cranial nerves 3-12 NL, Reflexes 2+ Psych/Mental Status: Mental status NL, Mood NL Vitals Vitals Vital Signs Date Time Temp Pulse Resp B/P (MAP) Pulse Ox O2 Delivery O2 Flow Rate FiO2 11/08/18 14:56 98.7 114 18 207/95 (132) 97 Room Air 98.7 Labs Labs Laboratory Tests Test 11/08/18 14:58 White Blood Count 16.5 x10^3/uL (4.0-11.0) Red Blood Count 4.08 x10^6/uL (3.50-5.40) Hemoglobin 12.4 g/dL (12.0-15.5) Hematocrit 37.1 % (36.0-47.0) Mean Corpuscular Volume 91 fL (79-100) Mean Corpuscular Hemoglobin 30 pg (25-35) Mean Corpuscular Hemoglobin Concent 33 g/dL (31-37) Red Cell Distribution Width 14.9 % (11.5-14.5) Platelet Count 565 x10^3/uL (140-400) Neutrophils (%) (Auto) 55 % (31-73) Lymphocytes (%) (Auto) 34 % (24-48) Monocytes (%) (Auto) 8 % (0-9) Eosinophils (%) (Auto) 2 % (0-3) Basophils (%) (Auto) 1 % (0-3) Neutrophils # (Auto) 9.0 x10^3/uL (1.8-7.7) Lymphocytes # (Auto) 5.6 x10^3/uL (1.0-4.8) Monocytes # (Auto) 1.3 x10^3/uL (0.0-1.1) Eosinophils # (Auto) 0.4 x10^3/uL (0.0-0.7) Basophils # (Auto) 0.2 x10^3/uL (0.0-0.2) Prothrombin Time 14.1 SEC (11.7-14.0) Prothromb Time International Ratio 1.1 (0.8-1.1) Sodium Level 136 mmol/L (136-145) Potassium Level 3.4 mmol/L (3.5-5.1) Chloride Level 98 mmol/L (98-107) Carbon Dioxide Level 21 mmol/L (21-32) Anion Gap 17 (6-14) Blood Urea Nitrogen 25 mg/dL (7-20) Creatinine 1.2 mg/dL (0.6-1.0) Estimated GFR (Cockcroft-Gault) 44.0 BUN/Creatinine Ratio 21 (6-20) Glucose Level 246 mg/dL (70-99) Lactic Acid Level 4.2 mmol/L (0.4-2.0) Calcium Level 9.8 mg/dL (8.5-10.1) Magnesium Level 1.3 mg/dL (1.8-2.4) Total Bilirubin 0.2 mg/dL (0.2-1.0) Aspartate Amino Transf (AST/SGOT) 81 U/L (15-37) Alanine Aminotransferase (ALT/SGPT) 30 U/L (14-59) Alkaline Phosphatase 84 U/L (46-116) Creatine Kinase 378 U/L (26-192) Creatine Kinase MB (Mass) 23.4 ng/mL (0.0-3.6) Creatine Kinase MB Relative Index 6.2 % (0-4) Troponin I Quantitative 28.899 ng/mL (0.000-0.055) LA-Oxl-M-Type Natriuretic Peptide 4244 pg/mL (0-124) Total Protein 9.4 g/dL (6.4-8.2) Albumin 4.0 g/dL (3.4-5.0) Albumin/Globulin Ratio 0.7 (1.0-1.7) Lipase 125 U/L (73-393) Laboratory Tests Test 11/08/18 14:58 White Blood Count 16.5 x10^3/uL (4.0-11.0) Red Blood Count 4.08 x10^6/uL (3.50-5.40) Hemoglobin 12.4 g/dL (12.0-15.5) Hematocrit 37.1 % (36.0-47.0) Mean Corpuscular Volume 91 fL (79-100) Mean Corpuscular Hemoglobin 30 pg (25-35) Mean Corpuscular Hemoglobin Concent 33 g/dL (31-37) Red Cell Distribution Width 14.9 % (11.5-14.5) Platelet Count 565 x10^3/uL (140-400) Neutrophils (%) (Auto) 55 % (31-73) Lymphocytes (%) (Auto) 34 % (24-48) Monocytes (%) (Auto) 8 % (0-9) Eosinophils (%) (Auto) 2 % (0-3) Basophils (%) (Auto) 1 % (0-3) Neutrophils # (Auto) 9.0 x10^3/uL (1.8-7.7) Lymphocytes # (Auto) 5.6 x10^3/uL (1.0-4.8) Monocytes # (Auto) 1.3 x10^3/uL (0.0-1.1) Eosinophils # (Auto) 0.4 x10^3/uL (0.0-0.7) Basophils # (Auto) 0.2 x10^3/uL (0.0-0.2) Prothrombin Time 14.1 SEC (11.7-14.0) Prothromb Time International Ratio 1.1 (0.8-1.1) Sodium Level 136 mmol/L (136-145) Potassium Level 3.4 mmol/L (3.5-5.1) Chloride Level 98 mmol/L (98-107) Carbon Dioxide Level 21 mmol/L (21-32) Anion Gap 17 (6-14) Blood Urea Nitrogen 25 mg/dL (7-20) Creatinine 1.2 mg/dL (0.6-1.0) Estimated GFR (Cockcroft-Gault) 44.0 BUN/Creatinine Ratio 21 (6-20) Glucose Level 246 mg/dL (70-99) Lactic Acid Level 4.2 mmol/L (0.4-2.0) Calcium Level 9.8 mg/dL (8.5-10.1) Magnesium Level 1.3 mg/dL (1.8-2.4) Total Bilirubin 0.2 mg/dL (0.2-1.0) Aspartate Amino Transf (AST/SGOT) 81 U/L (15-37) Alanine Aminotransferase (ALT/SGPT) 30 U/L (14-59) Alkaline Phosphatase 84 U/L (46-116) Creatine Kinase 378 U/L (26-192) Creatine Kinase MB (Mass) 23.4 ng/mL (0.0-3.6) Creatine Kinase MB Relative Index 6.2 % (0-4) Troponin I Quantitative 28.899 ng/mL (0.000-0.055) VC-Roh-N-Type Natriuretic Peptide 4244 pg/mL (0-124) Total Protein 9.4 g/dL (6.4-8.2) Albumin 4.0 g/dL (3.4-5.0) Albumin/Globulin Ratio 0.7 (1.0-1.7) Lipase 125 U/L (73-393) VTE Prophylaxis Ordered VTE Prophylaxis Devices: Yes VTE Pharmacological Prophylaxi: Yes Assessment/Plan Assessment/Plan 1. ACS 2. CAD: see 2018 [facility] 3. Accelerated HTN 4. HLP 5. Nontraumatic mechanical fall: Sunday. 6. Obesity - BMI 32 7. HYpokalmeia 8. DM 2 on insulin 9. POlypharmacy PLAn: CVC bed, nitro drip, heparin drip Trend troponin I have reconciled all home meds except asa but did cont plavix (since on heparin gtt) Polypharmacy Check A1c Sliding scale insulin high-dose Colace stool softener to avoid straining KCl 40 by mouth 1 Labs tomorrow Discussions about C Full code Seen at ER with cards and family and [employer] at bedside WALDEMAR COE MD Nov 08, 2018 16:30
[2018-11-08] MEDS ORDERED: CARB200T PO (16:47)
[2018-11-08] MEDS ORDERED: METO-239 PO (16:47)
[2018-11-08] MEDS: INSULIN LISPRO 300 UNITS/3 ML INSULN.PEN. SQ SCH ×2 (17:00)
[2018-11-08] MEDS: DICLOFENAC SODIUM 1% TOPICAL GEL 100GM TUBE. TP SCH ×2 (17:00→21:21)
[2018-11-08] MEDS: metFORMIN XR 500 MG TAB.ER.24H PO SCH (17:00)
--- NOTE | 2018-11-08 18:37 | NUR ---
Patient arrived from ED. Admitted with elevated trop of 28+ and CP x 2 day. Patient was seen by Dr. Shah and Dr. Ferraro in the ED. Patient was started on heparin gtt and nitro gtt. Abn. labs include mag 1.3, lactic 4.2, wbc 16.5, Ck 378, BNP 424 and trop as noted. Patient received 4gm mag replacement. zosyn for wbcs. heparin gtt for elevated trop and elevated lactic was attributed to elevated trop and BNP. Fluids were ordered at 60ml/hr.
[2018-11-08] MEDS: ALBUTEROL SULFATE 2.5 MG/3 ML NEBU. INH SCH (20:00)
[2018-11-08] MEDS: IPRATRPIUM/ALBUTEROL 0.5/2.5MG 3 ML NEBU. NEB SCH (20:22)
[2018-11-08] MEDS ORDERED: INSULIN GLARGINE 300 UNITS/3 ML INSULN.PEN. SQ SCH (21:00)
[2018-11-08] MEDS: ZONISAMIDE 100 MG CAPSULE. PO SCH (21:17)
[2018-11-08] MEDS: ERYTHROMYCIN BASE 250 MG TABLET PO SCH (21:17)
[2018-11-08] MEDS: busPIRone 10 MG TABLET. PO SCH (21:18)
[2018-11-08] MEDS: buPROPion SR 150 MG TABLET.SA PO SCH (21:18)
[2018-11-08] MEDS: rOPINIRole 1 MG TABLET. PO SCH (21:18)
[2018-11-08] MEDS: ASCORBIC ACID 500 MG TABLET PO SCH (21:19)
[2018-11-08] MEDS: MIRTAZAPINE 15 MG TABLET PO SCH (21:19)
[2018-11-08] MEDS: ATORVASTATIN CALCIUM 10 MG TABLET. PO SCH (21:19)
[2018-11-08] MEDS: INSULIN GLARGINE 300 UNITS/3 ML INSULN.PEN. SQ SCH (21:22)
[2018-11-08] MEDS: NORTRIPTYLINE 25 MG CAPSULE PO SCH (21:45)
[2018-11-09] VITALS (14 sets, daily range): BP systolic 102–169; BP diastolic 55–84
--- NOTE | 2018-11-09 04:51 | EKG ---
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 : 1945 Requested By: BENSON MERA Order Number: [id number] Reading MD: Measurements Intervals [place] Rate: 83 P: 26 FL: 178 QRS: -20 QRSD: 80 T: 111 QT: 390 QTc: 459 Interpretive Statements SINUS RHYTHM LEFTWARD AXIS CONSIDER LEFT VENTRICULAR HYPERTROPHY QRS(T) CONTOUR ABNORMALITY CONSIDER ANTEROSEPTAL MYOCARDIAL DAMAGE CONSISTENT WITH INFERIOR INFARCT PROBABLY OLD ST & T ABNORMALITY, CONSIDER HIGH LATERAL ISCHEMIA OR LEFT VENTRICULAR STRAIN ABNORMAL ECG RI6.01 Compared to ECG 12/15/2017 10:26:33 Left-axis deviation now present Myocardial infarct finding now present T-wave abnormality now present Possible ischemia now present
[2018-11-09 05:40] LABS: HEMATOCRIT 27.1 % (36.0-47.0); HEMOGLOBIN 8.9 g/dL (12.0-15.5); RED BLOOD COUNT 2.98 x10^6/uL (3.50-5.40); WHITE BLOOD COUNT 10.4 x10^3/uL (4.0-11.0)
[2018-11-09] MEDS: HEPARIN for IV BOLUS 10,000 UNIT/10 ML VIAL. IV PRN ×2 (06:11→08:15)
[2018-11-09 07:54] LABS: CALCIUM 8.7 mg/dL (8.5-10.1); GFR 54.3; POTASSIUM 3.9 mmol/L (3.5-5.1)
[2018-11-09] MEDS: INSULIN LISPRO 300 UNITS/3 ML INSULN.PEN. SQ SCH ×8 (08:00→17:00)
[2018-11-09] MEDS: metFORMIN XR 500 MG TAB.ER.24H PO SCH ×3 (08:00→17:00)
[2018-11-09] MEDS: ANTI-COAG MONITOR BY PHARMACY. MC PRN ×2 (08:05→15:15)
[2018-11-09] MEDS: ALBUTEROL SULFATE 2.5 MG/3 ML NEBU. INH SCH (08:14)
[2018-11-09] MEDS: IPRATRPIUM/ALBUTEROL 0.5/2.5MG 3 ML NEBU. NEB SCH ×3 (08:15→20:05)
[2018-11-09 08:19] LABS: CHOLESTEROL/HDL RATIO 4.2
[2018-11-09] MEDS: buPROPion SR 150 MG TABLET.SA PO SCH ×2 (08:48→20:51)
[2018-11-09] MEDS: ZONISAMIDE 100 MG CAPSULE. PO SCH ×3 (08:48→20:51)
[2018-11-09] MEDS: CLOPIDOGREL BISULFATE 75 MG TABLET PO SCH (08:50)
[2018-11-09] MEDS: DULoxetine HCL 30 MG CAPSULE.DR PO SCH (08:50)
[2018-11-09] MEDS: busPIRone 10 MG TABLET. PO SCH ×3 (08:50→20:54)
[2018-11-09] MEDS: DICLOFENAC SODIUM 1% TOPICAL GEL 100GM TUBE. TP SCH ×4 (08:50→21:00)
[2018-11-09] MEDS: METOPROLOL SUCC 24HR ER 25 MG TAB.ER.24H. PO SCH (08:51)
[2018-11-09] MEDS: DOCUSATE SODIUM 100 MG CAPSULE. PO SCH (08:51)
[2018-11-09] MEDS: CYANOCOBALAMIN (VITAMIN B-12) 1,000 MCG TABLET. PO SCH (08:51)
[2018-11-09] MEDS: ASCORBIC ACID 500 MG TABLET PO SCH ×2 (08:51→20:51)
[2018-11-09] MEDS: CETIRIZINE HCL 10 MG TABLET. PO SCH (08:51)
[2018-11-09] MEDS: CHOLECALCIFEROL (VITAMIN D3) 1,000 UNIT TABLET PO SCH (08:51)
[2018-11-09] MEDS: SODIUM BICARBONATE 650 MG TABLET. PO SCH (08:51)
[2018-11-09] MEDS: MULTIVITAMIN with MINERAL TABLET. PO SCH (08:51)
[2018-11-09] MEDS: OMEGA-3 FATTY ACIDS/FISH OIL 1,000 MG CAPSULE. PO SCH (08:51)
[2018-11-09] MEDS: amLODIPine BESYLATE 5 MG TABLET PO SCH (08:51)
[2018-11-09] MEDS: LISINOPRIL 5 MG TABLET. PO SCH (08:52)
[2018-11-09] MEDS: PANTOPRAZOLE 40 MG TABLET.DR. PO SCH (08:52)
[2018-11-09] MEDS: ERYTHROMYCIN BASE 250 MG TABLET PO SCH ×2 (08:52→20:51)
[2018-11-09] MEDS: FLUTICASONE 50MCG/NASAL SPRAY 16GM BOTTLE. NS SCH (08:52)
--- NOTE | 2018-11-09 10:15 | PDOC ---
PROGRESS NOTES Chief Complaint Chief Complaint 1. NSTEMI, trop peak 25 2. CAD: see [address] [facility] 3. Accelerated HTN 4. HLP 5. Nontraumatic mechanical fall: Sunday. 6. Obesity - BMI 32 7. Hypokalmeia 8. DM 2 on insulin History of Present Illness History of Present Illness transfer out of ICU to CVC bed, nitro drip, heparin drip Trend troponin, down to 7 this AM plan cardiac cath I have reconciled all home meds except asa but did cont plavix (since on heparin gtt) Polypharmacy Check A1c Sliding scale insulin high-dose Colace stool softener to avoid straining Vitals Vitals Vital Signs Date Time Temp Pulse Resp B/P (MAP) Pulse Ox O2 Delivery O2 Flow Rate FiO2 11/09/18 09:00 88 122/55 (77) 98 Room Air 11/09/18 07:00 97.6 20 97.6 Physical Exam General: Alert, Oriented X3, Cooperative, No acute distress Heart: Regular rate (SR/ST), Normal S1, Normal S2, Other (S3; 3/6 systolic murmur to MAGGY border) Lungs: Clear Abdomen: Normal bowel sounds, Soft, No tenderness, No hepatosplenomegaly, No masses Extremities: No clubbing, No cyanosis, No edema, Normal pulses, No tenderness/swelling Skin: No rashes, No breakdown, No significant lesion Labs LABS Laboratory Tests Test 11/08/18 14:58 11/08/18 17:38 11/08/18 18:30 11/08/18 21:13 White Blood Count 16.5 x10^3/uL (4.0-11.0) Red Blood Count 4.08 x10^6/uL (3.50-5.40) Hemoglobin 12.4 g/dL (12.0-15.5) Hematocrit 37.1 % (36.0-47.0) Mean Corpuscular Volume 91 fL (79-100) Mean Corpuscular Hemoglobin 30 pg (25-35) Mean Corpuscular Hemoglobin Concent 33 g/dL (31-37) Red Cell Distribution Width 14.9 % (11.5-14.5) Platelet Count 565 x10^3/uL (140-400) Neutrophils (%) (Auto) 55 % (31-73) Lymphocytes (%) (Auto) 34 % (24-48) Monocytes (%) (Auto) 8 % (0-9) Eosinophils (%) (Auto) 2 % (0-3) Basophils (%) (Auto) 1 % (0-3) Neutrophils # (Auto) 9.0 x10^3/uL (1.8-7.7) Lymphocytes # (Auto) 5.6 x10^3/uL (1.0-4.8) Monocytes # (Auto) 1.3 x10^3/uL (0.0-1.1) Eosinophils # (Auto) 0.4 x10^3/uL (0.0-0.7) Basophils # (Auto) 0.2 x10^3/uL (0.0-0.2) Prothrombin Time 14.1 SEC (11.7-14.0) Prothromb Time International Ratio 1.1 (0.8-1.1) Sodium Level 136 mmol/L (136-145) Potassium Level 3.4 mmol/L (3.5-5.1) Chloride Level 98 mmol/L (98-107) Carbon Dioxide Level 21 mmol/L (21-32) Anion Gap 17 (6-14) Blood Urea Nitrogen 25 mg/dL (7-20) Creatinine 1.2 mg/dL (0.6-1.0) Estimated GFR (Cockcroft-Gault) 44.0 BUN/Creatinine Ratio 21 (6-20) Glucose Level 246 mg/dL (70-99) Lactic Acid Level 4.2 mmol/L (0.4-2.0) 2.7 mmol/L (0.4-2.0) Calcium Level 9.8 mg/dL (8.5-10.1) Magnesium Level 1.3 mg/dL (1.8-2.4) Total Bilirubin 0.2 mg/dL (0.2-1.0) Aspartate Amino Transf (AST/SGOT) 81 U/L (15-37) Alanine Aminotransferase (ALT/SGPT) 30 U/L (14-59) Alkaline Phosphatase 84 U/L (46-116) Creatine Kinase 378 U/L (26-192) Creatine Kinase MB (Mass) 23.4 ng/mL (0.0-3.6) Creatine Kinase MB Relative Index 6.2 % (0-4) Troponin I Quantitative 28.899 ng/mL (0.000-0.055) 25.572 ng/mL (0.000-0.055) UY-Wse-C-Type Natriuretic Peptide 4244 pg/mL (0-124) Total Protein 9.4 g/dL (6.4-8.2) Albumin 4.0 g/dL (3.4-5.0) Albumin/Globulin Ratio 0.7 (1.0-1.7) Lipase 125 U/L (73-393) Glucose (Fingerstick) 141 mg/dL (70-99) 98 mg/dL (70-99) Test 11/08/18 22:10 11/09/18 05:15 11/09/18 07:10 11/09/18 08:17 Heparin Anti-Xa Act, Unfractionated 0.36 IU/mL (0.30-0.70) 0.12 IU/mL (0.30-0.70) Troponin I Quantitative 14.118 ng/mL (0.000-0.055) 7.700 ng/mL (0.000-0.055) White Blood Count 10.4 x10^3/uL (4.0-11.0) Red Blood Count 2.98 x10^6/uL (3.50-5.40) Hemoglobin 8.9 g/dL (12.0-15.5) Hematocrit 27.1 % (36.0-47.0) Mean Corpuscular Volume 91 fL (79-100) Mean Corpuscular Hemoglobin 30 pg (25-35) Mean Corpuscular Hemoglobin Concent 33 g/dL (31-37) Red Cell Distribution Width 15.0 % (11.5-14.5) Platelet Count 397 x10^3/uL (140-400) Sodium Level 138 mmol/L (136-145) Potassium Level 3.9 mmol/L (3.5-5.1) Chloride Level 103 mmol/L (98-107) Carbon Dioxide Level 22 mmol/L (21-32) Anion Gap 13 (6-14) Blood Urea Nitrogen 17 mg/dL (7-20) Creatinine 1.0 mg/dL (0.6-1.0) Estimated GFR (Cockcroft-Gault) 54.3 Glucose Level 152 mg/dL (70-99) Calcium Level 8.7 mg/dL (8.5-10.1) Magnesium Level 2.0 mg/dL (1.8-2.4) Triglycerides Level 322 mg/dL (0-150) Cholesterol Level 195 mg/dL (0-200) LDL Cholesterol, Calculated 85 mg/dL (0-100) VLDL Cholesterol, Calculated 64 mg/dL (0-40) Non-HDL Cholesterol Calculated 149 mg/dL (0-129) HDL Cholesterol 46 mg/dL (40-60) Cholesterol/HDL Ratio 4.2 Glucose (Fingerstick) 175 mg/dL (70-99) Assessment and Plan Assessmemt and Plan Problems Medical Problems: (1) Congestive heart failure Status: Acute (2) Hypomagnesemia Status: Acute (3) NSTEMI (non-ST elevated myocardial infarction) Status: Acute (4) Renal insufficiency Status: Acute (5) Severe sepsis Status: Acute (6) Uncontrolled diabetes mellitus Status: Acute Comment Review of Relevant I have reviewed the following items danisha (where applicable) has been applied. Labs Laboratory Tests Test 11/08/18 14:58 11/08/18 17:38 11/08/18 18:30 11/08/18 21:13 White Blood Count 16.5 x10^3/uL (4.0-11.0) Red Blood Count 4.08 x10^6/uL (3.50-5.40) Hemoglobin 12.4 g/dL (12.0-15.5) Hematocrit 37.1 % (36.0-47.0) Mean Corpuscular Volume 91 fL (79-100) Mean Corpuscular Hemoglobin 30 pg (25-35) Mean Corpuscular Hemoglobin Concent 33 g/dL (31-37) Red Cell Distribution Width 14.9 % (11.5-14.5) Platelet Count 565 x10^3/uL (140-400) Neutrophils (%) (Auto) 55 % (31-73) Lymphocytes (%) (Auto) 34 % (24-48) Monocytes (%) (Auto) 8 % (0-9) Eosinophils (%) (Auto) 2 % (0-3) Basophils (%) (Auto) 1 % (0-3) Neutrophils # (Auto) 9.0 x10^3/uL (1.8-7.7) Lymphocytes # (Auto) 5.6 x10^3/uL (1.0-4.8) Monocytes # (Auto) 1.3 x10^3/uL (0.0-1.1) Eosinophils # (Auto) 0.4 x10^3/uL (0.0-0.7) Basophils # (Auto) 0.2 x10^3/uL (0.0-0.2) Prothrombin Time 14.1 SEC (11.7-14.0) Prothromb Time International Ratio 1.1 (0.8-1.1) Sodium Level 136 mmol/L (136-145) Potassium Level 3.4 mmol/L (3.5-5.1) Chloride Level 98 mmol/L (98-107) Carbon Dioxide Level 21 mmol/L (21-32) Anion Gap 17 (6-14) Blood Urea Nitrogen 25 mg/dL (7-20) Creatinine 1.2 mg/dL (0.6-1.0) Estimated GFR (Cockcroft-Gault) 44.0 BUN/Creatinine Ratio 21 (6-20) Glucose Level 246 mg/dL (70-99) Lactic Acid Level 4.2 mmol/L (0.4-2.0) 2.7 mmol/L (0.4-2.0) Calcium Level 9.8 mg/dL (8.5-10.1) Magnesium Level 1.3 mg/dL (1.8-2.4) Total Bilirubin 0.2 mg/dL (0.2-1.0) Aspartate Amino Transf (AST/SGOT) 81 U/L (15-37) Alanine Aminotransferase (ALT/SGPT) 30 U/L (14-59) Alkaline Phosphatase 84 U/L (46-116) Creatine Kinase 378 U/L (26-192) Creatine Kinase MB (Mass) 23.4 ng/mL (0.0-3.6) Creatine Kinase MB Relative Index 6.2 % (0-4) Troponin I Quantitative 28.899 ng/mL (0.000-0.055) 25.572 ng/mL (0.000-0.055) VV-Wua-L-Type Natriuretic Peptide 4244 pg/mL (0-124) Total Protein 9.4 g/dL (6.4-8.2) Albumin 4.0 g/dL (3.4-5.0) Albumin/Globulin Ratio 0.7 (1.0-1.7) Lipase 125 U/L (73-393) Glucose (Fingerstick) 141 mg/dL (70-99) 98 mg/dL (70-99) Test 11/08/18 22:10 11/09/18 05:15 11/09/18 07:10 11/09/18 08:17 Heparin Anti-Xa Act, Unfractionated 0.36 IU/mL (0.30-0.70) 0.12 IU/mL (0.30-0.70) Troponin I Quantitative 14.118 ng/mL (0.000-0.055) 7.700 ng/mL (0.000-0.055) White Blood Count 10.4 x10^3/uL (4.0-11.0) Red Blood Count 2.98 x10^6/uL (3.50-5.40) Hemoglobin 8.9 g/dL (12.0-15.5) Hematocrit 27.1 % (36.0-47.0) Mean Corpuscular Volume 91 fL (79-100) Mean Corpuscular Hemoglobin 30 pg (25-35) Mean Corpuscular Hemoglobin Concent 33 g/dL (31-37) Red Cell Distribution Width 15.0 % (11.5-14.5) Platelet Count 397 x10^3/uL (140-400) Sodium Level 138 mmol/L (136-145) Potassium Level 3.9 mmol/L (3.5-5.1) Chloride Level 103 mmol/L (98-107) Carbon Dioxide Level 22 mmol/L (21-32) Anion Gap 13 (6-14) Blood Urea Nitrogen 17 mg/dL (7-20) Creatinine 1.0 mg/dL (0.6-1.0) Estimated GFR (Cockcroft-Gault) 54.3 Glucose Level 152 mg/dL (70-99) Calcium Level 8.7 mg/dL (8.5-10.1) Magnesium Level 2.0 mg/dL (1.8-2.4) Triglycerides Level 322 mg/dL (0-150) Cholesterol Level 195 mg/dL (0-200) LDL Cholesterol, Calculated 85 mg/dL (0-100) VLDL Cholesterol, Calculated 64 mg/dL (0-40) Non-HDL Cholesterol Calculated 149 mg/dL (0-129) HDL Cholesterol 46 mg/dL (40-60) Cholesterol/HDL Ratio 4.2 Glucose (Fingerstick) 175 mg/dL (70-99) Laboratory Tests Test 11/08/18 14:58 11/08/18 17:38 11/08/18 18:30 11/08/18 21:13 White Blood Count 16.5 x10^3/uL (4.0-11.0) Red Blood Count 4.08 x10^6/uL (3.50-5.40) Hemoglobin 12.4 g/dL (12.0-15.5) Hematocrit 37.1 % (36.0-47.0) Mean Corpuscular Volume 91 fL (79-100) Mean Corpuscular Hemoglobin 30 pg (25-35) Mean Corpuscular Hemoglobin Concent 33 g/dL (31-37) Red Cell Distribution Width 14.9 % (11.5-14.5) Platelet Count 565 x10^3/uL (140-400) Neutrophils (%) (Auto) 55 % (31-73) Lymphocytes (%) (Auto) 34 % (24-48) Monocytes (%) (Auto) 8 % (0-9) Eosinophils (%) (Auto) 2 % (0-3) Basophils (%) (Auto) 1 % (0-3) Neutrophils # (Auto) 9.0 x10^3/uL (1.8-7.7) Lymphocytes # (Auto) 5.6 x10^3/uL (1.0-4.8) Monocytes # (Auto) 1.3 x10^3/uL (0.0-1.1) Eosinophils # (Auto) 0.4 x10^3/uL (0.0-0.7) Basophils # (Auto) 0.2 x10^3/uL (0.0-0.2) Prothrombin Time 14.1 SEC (11.7-14.0) Prothromb Time International Ratio 1.1 (0.8-1.1) Sodium Level 136 mmol/L (136-145) Potassium Level 3.4 mmol/L (3.5-5.1) Chloride Level 98 mmol/L (98-107) Carbon Dioxide Level 21 mmol/L (21-32) Anion Gap 17 (6-14) Blood Urea Nitrogen 25 mg/dL (7-20) Creatinine 1.2 mg/dL (0.6-1.0) Estimated GFR (Cockcroft-Gault) 44.0 BUN/Creatinine Ratio 21 (6-20) Glucose Level 246 mg/dL (70-99) Lactic Acid Level 4.2 mmol/L (0.4-2.0) 2.7 mmol/L (0.4-2.0) Calcium Level 9.8 mg/dL (8.5-10.1) Magnesium Level 1.3 mg/dL (1.8-2.4) Total Bilirubin 0.2 mg/dL (0.2-1.0) Aspartate Amino Transf (AST/SGOT) 81 U/L (15-37) Alanine Aminotransferase (ALT/SGPT) 30 U/L (14-59) Alkaline Phosphatase 84 U/L (46-116) Creatine Kinase 378 U/L (26-192) Creatine Kinase MB (Mass) 23.4 ng/mL (0.0-3.6) Creatine Kinase MB Relative Index 6.2 % (0-4) Troponin I Quantitative 28.899 ng/mL (0.000-0.055) 25.572 ng/mL (0.000-0.055) BI-Dcb-P-Type Natriuretic Peptide 4244 pg/mL (0-124) Total Protein 9.4 g/dL (6.4-8.2) Albumin 4.0 g/dL (3.4-5.0) Albumin/Globulin Ratio 0.7 (1.0-1.7) Lipase 125 U/L (73-393) Glucose (Fingerstick) 141 mg/dL (70-99) 98 mg/dL (70-99) Test 11/08/18 22:10 11/09/18 05:15 11/09/18 07:10 11/09/18 08:17 Heparin Anti-Xa Act, Unfractionated 0.36 IU/mL (0.30-0.70) 0.12 IU/mL (0.30-0.70) Troponin I Quantitative 14.118 ng/mL (0.000-0.055) 7.700 ng/mL (0.000-0.055) White Blood Count 10.4 x10^3/uL (4.0-11.0) Red Blood Count 2.98 x10^6/uL (3.50-5.40) Hemoglobin 8.9 g/dL (12.0-15.5) Hematocrit 27.1 % (36.0-47.0) Mean Corpuscular Volume 91 fL (79-100) Mean Corpuscular Hemoglobin 30 pg (25-35) Mean Corpuscular Hemoglobin Concent 33 g/dL (31-37) Red Cell Distribution Width 15.0 % (11.5-14.5) Platelet Count 397 x10^3/uL (140-400) Sodium Level 138 mmol/L (136-145) Potassium Level 3.9 mmol/L (3.5-5.1) Chloride Level 103 mmol/L (98-107) Carbon Dioxide Level 22 mmol/L (21-32) Anion Gap 13 (6-14) Blood Urea Nitrogen 17 mg/dL (7-20) Creatinine 1.0 mg/dL (0.6-1.0) Estimated GFR (Cockcroft-Gault) 54.3 Glucose Level 152 mg/dL (70-99) Calcium Level 8.7 mg/dL (8.5-10.1) Magnesium Level 2.0 mg/dL (1.8-2.4) Triglycerides Level 322 mg/dL (0-150) Cholesterol Level 195 mg/dL (0-200) LDL Cholesterol, Calculated 85 mg/dL (0-100) VLDL Cholesterol, Calculated 64 mg/dL (0-40) Non-HDL Cholesterol Calculated 149 mg/dL (0-129) HDL Cholesterol 46 mg/dL (40-60) Cholesterol/HDL Ratio 4.2 Glucose (Fingerstick) 175 mg/dL (70-99) Medications Current Medications Heparin Sodium/ Dextrose 500 ml @ 0 mls/hr CONT PRN IV SEE I/O RECORD Last administered on 11/08/18at 16:08; Start 11/08/18 at 16:00 Heparin Sodium (Porcine) (Heparin Sodium) 1,650 unit PRN Q6HRS PRN IV FOR UFH LEVEL LESS THAN 0.2 Last administered on 11/09/18at 08:15; Start 11/08/18 at 16:00 Heparin Sodium (Porcine) (Heparin Sodium) 4,000 unit 1X ONCE IV Last administered on 11/08/18 16:09; Start 11/08/18 at 16:15; Stop 11/08/18 at 16:16; Status DC Nitroglycerin/ Dextrose 250 ml @ 0 mls/hr 1X ONCE IV Last administered on 11/08/18at 16:41; Start 11/08/18 at 16:15; Stop 11/08/18 at 16:16; Status DC Labetalol HCl (Normodyne Iv Push) 20 mg 1X ONCE IVP Last administered on 11/08/18 17:41; Start 11/08/18 at 16:15; Stop 11/08/18 at 16:16; Status DC Piperacillin Sod/ Tazobactam Sod 3.375 gm/Sodium Chloride 50 ml @ 100 mls/hr 1X ONCE IV Last administered on 11/08/18 16:55; Start 11/08/18 at 16:15; Stop 11/08/18 at 16:44; Status DC Nitroglycerin/ Dextrose 250 ml @ 0 mls/hr 1X ONCE IV ; Start 11/08/18 at 16:15; Stop 11/08/18 at 16:16; Status UNV Potassium Chloride (Klor-Con) 40 meq 1X ONCE PO Last administered on 11/08/18at 16:58; Start 11/08/18 at 16:15; Stop 11/08/18 at 16:16; Status DC Magnesium Sulfate/ Dextrose 100 ml @ 25 mls/hr 1X ONCE IV Last administered on 11/08/18at 16:55; Start 11/08/18 at 16:15; Stop 11/08/18 at 20:14; Status DC Sodium Chloride 1,000 ml @ 60 mls/hr 1X ONCE IV Last administered on 11/08/18at 17:47; Start 11/08/18 at 16:15; Stop 11/09/18 at 08:54; Status DC Albuterol Sulfate (Ventolin Neb Soln) 2.5 mg RTQID INH ; Start 11/08/18 at 20:00; Stop 11/09/18 at 08:27; Status DC Amlodipine Besylate (Norvasc) 5 mg DAILY PO Last administered on 11/09/18at 08:51; Start 11/09/18 at 09:00 Ascorbic Acid (Vitamin C) 500 mg BID PO Last administered on 11/09/18 08:51; Start 11/08/18 at 21:00 Atorvastatin Calcium (Lipitor) 10 mg HS PO Last administered on 11/08/18 21:19; Start 11/08/18 at 21:00 Bupropion HCl (Wellbutrin Sr) 150 mg BID PO Last administered on 11/09/18 08:48; Start 11/08/18 at 21:00 Buspirone HCl (Buspar) 15 mg TID PO Last administered on 11/09/18 08:50; Start 11/08/18 at 21:00 Carbamazepine (TEGretol XR) 200 mg QHS PO Last administered on 11/08/18 21:38; Start 11/08/18 at 21:00 Cetirizine HCl (ZyrTEC) 10 mg DAILY PO Last administered on 11/09/18 08:51; Start 11/09/18 at 09:00 Clonazepam (KlonoPIN) 0.5 mg PRN TID PRN PO ANXIETY / AGITATION; Start 11/08/18 at 21:00 Clopidogrel Bisulfate (Plavix) 75 mg DAILY PO Last administered on 11/09/18 08:50; Start 11/09/18 at 09:00 Cyanocobalamin (Vitamin B-12) 1,000 mcg DAILY PO Last administered on 11/09/18 08:51; Start 11/09/18 at 09:00 Diclofenac Sodium (Voltaren) 100 mac QID TP Last administered on 11/09/18 08:50; Start 11/08/18 at 17:00 Albuterol/ Ipratropium (Duoneb) 3 ml TID NEB Last administered on 11/09/18 08:15; Start 11/08/18 at 21:00 Metoprolol Succinate (Toprol Xl) 12.5 mg DAILY PO Last administered on 11/09/18 08:51; Start 11/09/18 at 09:00 Nortriptyline HCl (Pamelor) 50 mg HS PO Last administered on 11/08/18 21:45; Start 11/08/18 at 21:00 Fish Oil (Fish Oil) 1,000 mg DAILY PO Last administered on 11/09/18 08:51; Start 11/09/18 at 09:00 Sodium Bicarbonate (Sodium Bicarbonate) 650 mg DAILY PO Last administered on 11/09/18 08:51; Start 11/09/18 at 09:00 Vitamin D (Vitamin D3) 1,000 unit DAILY PO Last administered on 11/09/18 08:51; Start 11/09/18 at 09:00 Duloxetine HCl (Cymbalta) 60 mg DAILY PO Last administered on 11/09/18 08:50; Start 11/09/18 at 09:00 Erythromycin (E-Mycin) 125 mg BID PO Last administered on 11/09/18 08:52; Start 11/08/18 at 21:00 Fluticasone Propionate (Flonase) 2 spray DAILY NS Last administered on 11/09/18 08:52; Start 11/09/18 at 09:00 Insulin Human Lispro (HumaLOG) 15 units TIDWMEALS SQ Last administered on 11/09/18 08:59; Start 11/08/18 at 17:00 Insulin Glargine (Lantus) 80 units Q12HR SQ ; Start 11/08/18 at 21:00; Stop 11/08/18 at 21:00; Status DC Lisinopril (Prinivil) 5 mg DAILY PO Last administered on 11/09/18 08:52; Start 11/09/18 at 09:00 Metformin HCl (Glucophage Xr) 1,000 mg BIDWMEALS PO Last administered on 11/09/18 08:49; Start 11/08/18 at 17:00 Mirtazapine (Remeron) 15 mg QHS PO Last administered on 11/08/18 21:19; Start 11/08/18 at 21:00 Multivitamins (Thera M Plus) 1 tab DAILY PO Last administered on 11/09/18 08:51; Start 11/09/18 at 09:00 Pantoprazole Sodium (Protonix) 40 mg DAILYAC PO Last administered on 11/09/18 08:52; Start 11/09/18 at 07:30 Ropinirole HCl (Requip) 1 mg QHS PO Last administered on 11/08/18 21:18; Start 11/08/18 at 21:00 Zonisamide (Zonegran) 100 mg TID PO Last administered on 11/09/18 08:48; Start 11/08/18 at 21:00 Insulin Human Lispro (HumaLOG) 0-9 UNITS TIDWMEALS SQ Last administered on 11/09/18at 09:00; Start 11/08/18 at 17:00 Dextrose (Dextrose 50%-Water Syringe) 12.5 gm PRN Q15MIN PRN IV SEE COMMENTS; Start 11/08/18 at 16:30 Dextrose (Dextrose 50%-Water Syringe) 12.5 gm PRN Q15MIN PRN IV SEE COMMENTS; Start 11/08/18 at 16:30; Status UNV Insulin Glargine (Lantus) 20 units QHS SQ Last administered on 11/08/18at 21:22; Start 11/08/18 at 21:00 Docusate Sodium (Colace) 100 mg DAILY PO Last administered on 11/09/18at 08:51; Start 11/09/18 at 09:00 Info (Anti-Coagulation Monitoring By Pharmacy) 1 each PRN DAILY PRN MC SEE COMMENTS Last administered on 11/09/18at 08:05; Start 11/09/18 at 08:00 Active Scripts Active Reported Tegretol (Carbamazepine) 200 Mg Tablet 200 Mg PO QHS Metoprolol Succinate ( Xl ) (Metoprolol Succinate) 25 Mg Tab.er.24h 12.5 Mg PO DAILY Klonopin (Clonazepam) 0.5 Mg Tablet 0.5 Mg PO PRN BID PRN Fish Oil 1,000 Mg Capsule (Warren-3 Fatty Acids/Fish Oil) 1 Each Capsule 1 Each PO TID Cymbalta (Duloxetine Hcl) 60 Mg Capsule. 60 Mg PO DAILY Loperamide (Loperamide Hcl) 2 Mg Capsule 2 Mg PO Zyrtec (Cetirizine Hcl) 10 Mg Tablet 1 Tab PO DAILY Zonisamide 100 Mg Capsule 100 Mg PO TID Sodium Bicarbonate 650 Mg Tablet 1 Tab PO DAILY Ranitidine Hcl 150 Mg Tablet 150 Mg PO DAILY Protonix (Pantoprazole Sodium) 20 Mg Tablet. 40 Mg PO DAILY Nortriptyline Hcl 25 Mg Capsule 50 Mg PO HS Duoneb 0.5-3(2.5) Mg/3 Ml (Albuterol/Ipratropium) 3 Ml Ampul.neb 3 Ml NEB TID Erythromycin (Erythromycin Base) 250 Mg Capsule. 125 Mg PO BID Clopidogrel (Clopidogrel Bisulfate) 75 Mg Tablet 1 Tab PO DAILY Atorvastatin Calcium 10 Mg Tablet 10 Mg PO HS Multivitamins (Multivitamin) 1 Each Tablet 1 Tab PO DAILY Mirtazapine 15 Mg Tablet 30 Mg PO QHS Lisinopril 5 Mg Tablet 1 Tab PO DAILY Vitamin B-12 (Cyanocobalamin (Vitamin B-12)) 1,000 Mcg Tablet 1 Tab PO DAILY Vitamin D (Cholecalciferol (Vitamin D3)) 1,000 Unit Capsule 1 Cap PO DAILY Buspirone Hcl 10 Mg Tablet 15 Mg PO TID Ascorbic Acid 500 Mg Tablet 500 Mg PO BID Amlodipine Besylate 5 Mg Tablet 5 Mg PO DAILY Voltaren (Diclofenac Sodium) 100 Gm Gel..gram. 100 Gm TP QID Levemir Flextouch (Insulin Detemir) 100 Unit/1 Ml Insuln.pen 80 Unit SQ BID Flonase Allergy Relief (Fluticasone Propionate) 9.9 Ml [place].susp 2 Spr NS DAILY Wellbutrin Sr (Bupropion Hcl) 150 Mg Tablet.er 1 Tab PO BID Proair Hfa Inhaler (Albuterol Sulfate) 8.5 Gm Hfa.aer.ad 2 Puff IH QID Aspir 81 (Aspirin) 81 Mg Tablet.dr 81 Mg PO DAILY Metformin Hcl Er (Metformin Hcl) 500 Mg Tab.er.24 1,000 Mg PO BIDAC Ropinirole Hcl 1 Mg Tablet 1 Mg PO QHS Novolog (Insulin Aspart) 100 Unit/1 Ml Cartridge 15 Unit SQ TIDAC Vitals/I & O Vital Sign - Last 24 Hours 11/08/18 11/08/18 11/08/18 11/08/18 14:56 15:30 16:00 16:30 Temp 98.7 98.7 Pulse 114 106 106 106 Resp 18 18 18 18 B/P (MAP) 207/95 (132) 175/99 (124) 182/89 (120) 184/90 (121) Pulse Ox 97 94 94 95 O2 Delivery Room Air Room Air Room Air Room Air 11/08/18 11/08/18 11/08/18 11/08/18 17:00 17:30 17:41 17:45 Pulse 106 102 106 94 Resp 18 15 12 B/P (MAP) 184/90 (121) 177/86 (116) 184/90 169/94 (119) Pulse Ox 97 98 97 O2 Delivery Room Air Room Air Room Air 11/08/18 11/08/18 11/08/1819 17:50 18:00 18:39 19:00 Temp 98.7 97.8 98.7 97.8 Pulse 76 66 82 Resp 13 18 B/P (MAP) 168/94 (118) 119/70 (86) 129/74 (92) Pulse Ox 97 97 98 O2 Delivery Room Air Room Air Room Air 11/08/18 11/08/18 11/08/18 11/08/18 20:00 20:00 20:22 21:00 Pulse 82 81 Resp 15 22 B/P (MAP) 130/71 (90) 117/57 (77) Pulse Ox 100 96 100 O2 Delivery Room Air Room Air Room Air Room Air 11/08/18 11/09/18 11/09/18 11/09/18 22:00 00:00 00:18 01:15 Temp 97.9 97.9 Pulse 82 80 Resp 22 22 26 B/P (MAP) 134/69 (90) 135/72 (93) 131/64 (86) Pulse Ox 100 99 98 O2 Delivery Room Air Room Air Room Air Room Air 11/09/18 11/09/18 11/09/18 11/09/18 02:00 03:30 04:00 04:30 Pulse 78 90 84 Resp 22 15 B/P (MAP) 117/63 (81) 169/82 (111) 141/83 (102) Pulse Ox 95 95 O2 Delivery Room Air Room Air Room Air Room Air 11/09/18 11/09/18 11/09/18 11/09/18 05:35 06:09 07:00 08:00 Temp 97.6 97.6 Pulse 86 83 84 84 Resp 23 21 20 B/P (MAP) 132/73 (92) 129/70 (89) 153/84 (107) 127/62 (83) Pulse Ox 95 95 95 95 O2 Delivery Room Air Room Air Room Air Room Air 11/09/18 11/09/18 11/09/18 11/09/18 08:00 08:15 08:51 08:51 Pulse 84 84 B/P (MAP) 153/84 153/84 Pulse Ox 97 O2 Delivery Room Air Room Air 11/09/18 11/09/18 08:52 09:00 Pulse 84 88 B/P (MAP) 153/84 122/55 (77) Pulse Ox 98 O2 Delivery Room Air Intake and Output 11/08/18 11/08/18 11/09/18 14:59 22:59 06:59 Intake Total 0 ml Balance 0 ml TANNER COMER MD Nov 09, 2018 10:15
[2018-11-09] MEDS ORDERED: POLYETHYLENE GLYCOL 3350 17 GM PACKET. PO PRN (11:00)
[2018-11-09] MEDS ORDERED: POLYETHYLENE GLYCOL 3350 17 GM PACKET. PO ONE (11:00)
[2018-11-09] MEDS ORDERED: DOCUSATE SODIUM 100 MG CAPSULE. PO PRN (11:00)
--- NOTE | 2018-11-09 11:46 | PDOC ---
PROGRESS NOTES Subjective Subjective Patient seen and examined She denies any chest pain. Objective Objective Vital Signs Date Time Temp Pulse Resp B/P (MAP) Pulse Ox O2 Delivery O2 Flow Rate FiO2 11/09/18 11:07 98.5 91 20 136/69 (91) 98 Room Air 98.5 Intake and Output 11/09/18 07:00 Intake Total 0 ml Balance 0 ml Intake Oral 0 ml # Voids 1 Physical Exam Abdomen: Normal bowel sounds Heart: Regular rate General: No acute distress Lungs: Clear to auscultation Assessment Assessment Problems Medical Problems: (1) Congestive heart failure Status: Acute (2) Hypomagnesemia Status: Acute (3) NSTEMI (non-ST elevated myocardial infarction) Status: Acute (4) Renal insufficiency Status: Acute (5) Severe sepsis Status: Acute (6) Uncontrolled diabetes mellitus Status: Acute 1. ACS. Chest pain with a history of coronary artery disease. Catheterization as above showed heavily calcified vessels and difficult stent placement to the mid and distal LAD last year. Patient developed chest pain starting 3-4 days ago which was recurrent. Her pain today started approximately 8 hours ago and she went to her primary care physician's office. EKG there was suggestive of ischemia and the patient was transferred to the emergency room. In the emergency room the patient was severely hypertensive and started on IV nitroglycerin as well as heparin. On present treatment her chest pain has resolved. Her repeat EKG was improved. Patient has been pain-free overnight. Rhythm and hemodynamics have a fall. Troponin has trended down from 28-7.7. We'll continue on present treatment. We'll proceed with cardiac catheterization in the next one to 2 days. This was discussed with the patient. 2. Accelerated hypertension. Treated with IV nitroglycerin. Resolved. We'll adjust oral medications. 3. Hyperlipidemia. Lab pending. 4. Replacement of magnesium and potassium with close monitoring. Lab pending. 5. History of possible hematological disease. Patient states her workup has been negative. Comment Review of Relevant I have reviewed the following items danisha (where applicable) has been applied. Labs Laboratory Tests Test 11/08/18 14:58 11/08/18 17:38 11/08/18 18:30 11/08/18 21:13 White Blood Count 16.5 x10^3/uL (4.0-11.0) Red Blood Count 4.08 x10^6/uL (3.50-5.40) Hemoglobin 12.4 g/dL (12.0-15.5) Hematocrit 37.1 % (36.0-47.0) Mean Corpuscular Volume 91 fL (79-100) Mean Corpuscular Hemoglobin 30 pg (25-35) Mean Corpuscular Hemoglobin Concent 33 g/dL (31-37) Red Cell Distribution Width 14.9 % (11.5-14.5) Platelet Count 565 x10^3/uL (140-400) Neutrophils (%) (Auto) 55 % (31-73) Lymphocytes (%) (Auto) 34 % (24-48) Monocytes (%) (Auto) 8 % (0-9) Eosinophils (%) (Auto) 2 % (0-3) Basophils (%) (Auto) 1 % (0-3) Neutrophils # (Auto) 9.0 x10^3/uL (1.8-7.7) Lymphocytes # (Auto) 5.6 x10^3/uL (1.0-4.8) Monocytes # (Auto) 1.3 x10^3/uL (0.0-1.1) Eosinophils # (Auto) 0.4 x10^3/uL (0.0-0.7) Basophils # (Auto) 0.2 x10^3/uL (0.0-0.2) Prothrombin Time 14.1 SEC (11.7-14.0) Prothromb Time International Ratio 1.1 (0.8-1.1) Sodium Level 136 mmol/L (136-145) Potassium Level 3.4 mmol/L (3.5-5.1) Chloride Level 98 mmol/L (98-107) Carbon Dioxide Level 21 mmol/L (21-32) Anion Gap 17 (6-14) Blood Urea Nitrogen 25 mg/dL (7-20) Creatinine 1.2 mg/dL (0.6-1.0) Estimated GFR (Cockcroft-Gault) 44.0 BUN/Creatinine Ratio 21 (6-20) Glucose Level 246 mg/dL (70-99) Lactic Acid Level 4.2 mmol/L (0.4-2.0) 2.7 mmol/L (0.4-2.0) Calcium Level 9.8 mg/dL (8.5-10.1) Magnesium Level 1.3 mg/dL (1.8-2.4) Total Bilirubin 0.2 mg/dL (0.2-1.0) Aspartate Amino Transf (AST/SGOT) 81 U/L (15-37) Alanine Aminotransferase (ALT/SGPT) 30 U/L (14-59) Alkaline Phosphatase 84 U/L (46-116) Creatine Kinase 378 U/L (26-192) Creatine Kinase MB (Mass) 23.4 ng/mL (0.0-3.6) Creatine Kinase MB Relative Index 6.2 % (0-4) Troponin I Quantitative 28.899 ng/mL (0.000-0.055) 25.572 ng/mL (0.000-0.055) QU-Rrf-S-Type Natriuretic Peptide 4244 pg/mL (0-124) Total Protein 9.4 g/dL (6.4-8.2) Albumin 4.0 g/dL (3.4-5.0) Albumin/Globulin Ratio 0.7 (1.0-1.7) Lipase 125 U/L (73-393) Glucose (Fingerstick) 141 mg/dL (70-99) 98 mg/dL (70-99) Test 11/08/18 22:10 11/09/18 05:15 11/09/18 07:10 11/09/18 08:17 Heparin Anti-Xa Act, Unfractionated 0.36 IU/mL (0.30-0.70) 0.12 IU/mL (0.30-0.70) Troponin I Quantitative 14.118 ng/mL (0.000-0.055) 7.700 ng/mL (0.000-0.055) White Blood Count 10.4 x10^3/uL (4.0-11.0) Red Blood Count 2.98 x10^6/uL (3.50-5.40) Hemoglobin 8.9 g/dL (12.0-15.5) Hematocrit 27.1 % (36.0-47.0) Mean Corpuscular Volume 91 fL (79-100) Mean Corpuscular Hemoglobin 30 pg (25-35) Mean Corpuscular Hemoglobin Concent 33 g/dL (31-37) Red Cell Distribution Width 15.0 % (11.5-14.5) Platelet Count 397 x10^3/uL (140-400) Sodium Level 138 mmol/L (136-145) Potassium Level 3.9 mmol/L (3.5-5.1) Chloride Level 103 mmol/L (98-107) Carbon Dioxide Level 22 mmol/L (21-32) Anion Gap 13 (6-14) Blood Urea Nitrogen 17 mg/dL (7-20) Creatinine 1.0 mg/dL (0.6-1.0) Estimated GFR (Cockcroft-Gault) 54.3 Glucose Level 152 mg/dL (70-99) Calcium Level 8.7 mg/dL (8.5-10.1) Magnesium Level 2.0 mg/dL (1.8-2.4) Triglycerides Level 322 mg/dL (0-150) Cholesterol Level 195 mg/dL (0-200) LDL Cholesterol, Calculated 85 mg/dL (0-100) VLDL Cholesterol, Calculated 64 mg/dL (0-40) Non-HDL Cholesterol Calculated 149 mg/dL (0-129) HDL Cholesterol 46 mg/dL (40-60) Cholesterol/HDL Ratio 4.2 Glucose (Fingerstick) 175 mg/dL (70-99) Test 11/09/18 11:02 Heparin Anti-Xa Act, Unfractionated 0.74 IU/mL (0.30-0.70) Laboratory Tests Test 11/08/18 14:58 11/08/18 17:38 11/08/18 18:30 11/08/18 21:13 White Blood Count 16.5 x10^3/uL (4.0-11.0) Red Blood Count 4.08 x10^6/uL (3.50-5.40) Hemoglobin 12.4 g/dL (12.0-15.5) Hematocrit 37.1 % (36.0-47.0) Mean Corpuscular Volume 91 fL (79-100) Mean Corpuscular Hemoglobin 30 pg (25-35) Mean Corpuscular Hemoglobin Concent 33 g/dL (31-37) Red Cell Distribution Width 14.9 % (11.5-14.5) Platelet Count 565 x10^3/uL (140-400) Neutrophils (%) (Auto) 55 % (31-73) Lymphocytes (%) (Auto) 34 % (24-48) Monocytes (%) (Auto) 8 % (0-9) Eosinophils (%) (Auto) 2 % (0-3) Basophils (%) (Auto) 1 % (0-3) Neutrophils # (Auto) 9.0 x10^3/uL (1.8-7.7) Lymphocytes # (Auto) 5.6 x10^3/uL (1.0-4.8) Monocytes # (Auto) 1.3 x10^3/uL (0.0-1.1) Eosinophils # (Auto) 0.4 x10^3/uL (0.0-0.7) Basophils # (Auto) 0.2 x10^3/uL (0.0-0.2) Prothrombin Time 14.1 SEC (11.7-14.0) Prothromb Time International Ratio 1.1 (0.8-1.1) Sodium Level 136 mmol/L (136-145) Potassium Level 3.4 mmol/L (3.5-5.1) Chloride Level 98 mmol/L (98-107) Carbon Dioxide Level 21 mmol/L (21-32) Anion Gap 17 (6-14) Blood Urea Nitrogen 25 mg/dL (7-20) Creatinine 1.2 mg/dL (0.6-1.0) Estimated GFR (Cockcroft-Gault) 44.0 BUN/Creatinine Ratio 21 (6-20) Glucose Level 246 mg/dL (70-99) Lactic Acid Level 4.2 mmol/L (0.4-2.0) 2.7 mmol/L (0.4-2.0) Calcium Level 9.8 mg/dL (8.5-10.1) Magnesium Level 1.3 mg/dL (1.8-2.4) Total Bilirubin 0.2 mg/dL (0.2-1.0) Aspartate Amino Transf (AST/SGOT) 81 U/L (15-37) Alanine Aminotransferase (ALT/SGPT) 30 U/L (14-59) Alkaline Phosphatase 84 U/L (46-116) Creatine Kinase 378 U/L (26-192) Creatine Kinase MB (Mass) 23.4 ng/mL (0.0-3.6) Creatine Kinase MB Relative Index 6.2 % (0-4) Troponin I Quantitative 28.899 ng/mL (0.000-0.055) 25.572 ng/mL (0.000-0.055) NB-Gso-X-Type Natriuretic Peptide 4244 pg/mL (0-124) Total Protein 9.4 g/dL (6.4-8.2) Albumin 4.0 g/dL (3.4-5.0) Albumin/Globulin Ratio 0.7 (1.0-1.7) Lipase 125 U/L (73-393) Glucose (Fingerstick) 141 mg/dL (70-99) 98 mg/dL (70-99) Test 11/08/18 22:10 11/09/18 05:15 11/09/18 07:10 11/09/18 08:17 Heparin Anti-Xa Act, Unfractionated 0.36 IU/mL (0.30-0.70) 0.12 IU/mL (0.30-0.70) Troponin I Quantitative 14.118 ng/mL (0.000-0.055) 7.700 ng/mL (0.000-0.055) White Blood Count 10.4 x10^3/uL (4.0-11.0) Red Blood Count 2.98 x10^6/uL (3.50-5.40) Hemoglobin 8.9 g/dL (12.0-15.5) Hematocrit 27.1 % (36.0-47.0) Mean Corpuscular Volume 91 fL (79-100) Mean Corpuscular Hemoglobin 30 pg (25-35) Mean Corpuscular Hemoglobin Concent 33 g/dL (31-37) Red Cell Distribution Width 15.0 % (11.5-14.5) Platelet Count 397 x10^3/uL (140-400) Sodium Level 138 mmol/L (136-145) Potassium Level 3.9 mmol/L (3.5-5.1) Chloride Level 103 mmol/L (98-107) Carbon Dioxide Level 22 mmol/L (21-32) Anion Gap 13 (6-14) Blood Urea Nitrogen 17 mg/dL (7-20) Creatinine 1.0 mg/dL (0.6-1.0) Estimated GFR (Cockcroft-Gault) 54.3 Glucose Level 152 mg/dL (70-99) Calcium Level 8.7 mg/dL (8.5-10.1) Magnesium Level 2.0 mg/dL (1.8-2.4) Triglycerides Level 322 mg/dL (0-150) Cholesterol Level 195 mg/dL (0-200) LDL Cholesterol, Calculated 85 mg/dL (0-100) VLDL Cholesterol, Calculated 64 mg/dL (0-40) Non-HDL Cholesterol Calculated 149 mg/dL (0-129) HDL Cholesterol 46 mg/dL (40-60) Cholesterol/HDL Ratio 4.2 Glucose (Fingerstick) 175 mg/dL (70-99) Test 11/09/18 11:02 Heparin Anti-Xa Act, Unfractionated 0.74 IU/mL (0.30-0.70) Medications Current Medications Heparin Sodium/ Dextrose 500 ml @ 0 mls/hr CONT PRN IV SEE I/O RECORD Last administered on 11/08/18at 16:08; Start 11/08/18 at 16:00 Heparin Sodium (Porcine) (Heparin Sodium) 1,650 unit PRN Q6HRS PRN IV FOR UFH LEVEL LESS THAN 0.2 Last administered on 11/09/18at 08:15; Start 11/08/18 at 16:00 Heparin Sodium (Porcine) (Heparin Sodium) 4,000 unit 1X ONCE IV Last administered on 11/08/18at 16:09; Start 11/08/18 at 16:15; Stop 11/08/18 at 16:16; Status DC Nitroglycerin/ Dextrose 250 ml @ 0 mls/hr 1X ONCE IV Last administered on 11/08/18at 16:41; Start 11/08/18 at 16:15; Stop 11/08/18 at 16:16; Status DC Labetalol HCl (Normodyne Iv Push) 20 mg 1X ONCE IVP Last administered on 11/08/18at 17:41; Start 11/08/18 at 16:15; Stop 11/08/18 at 16:16; Status DC Piperacillin Sod/ Tazobactam Sod 3.375 gm/Sodium Chloride 50 ml @ 100 mls/hr 1X ONCE IV Last administered on 11/08/18at 16:55; Start 11/08/18 at 16:15; Stop 11/08/18 at 16:44; Status DC Nitroglycerin/ Dextrose 250 ml @ 0 mls/hr 1X ONCE IV ; Start 11/08/18 at 16:15; Stop 11/08/18 at 16:16; Status UNV Potassium Chloride (Klor-Con) 40 meq 1X ONCE PO Last administered on 11/08/18at 16:58; Start 11/08/18 at 16:15; Stop 11/08/18 at 16:16; Status DC Magnesium Sulfate/ Dextrose 100 ml @ 25 mls/hr 1X ONCE IV Last administered on 11/08/18at 16:55; Start 11/08/18 at 16:15; Stop 11/08/18 at 20:14; Status DC Sodium Chloride 1,000 ml @ 60 mls/hr 1X ONCE IV Last administered on 11/08/18 17:47; Start 11/08/18 at 16:15; Stop 11/09/18 at 08:54; Status DC Albuterol Sulfate (Ventolin Neb Soln) 2.5 mg RTQID INH ; Start 11/08/18 at 20:00; Stop 11/09/18 at 08:27; Status DC Amlodipine Besylate (Norvasc) 5 mg DAILY PO Last administered on 11/09/18 08:51; Start 11/09/18 at 09:00 Ascorbic Acid (Vitamin C) 500 mg BID PO Last administered on 11/09/18 08:51; Start 11/08/18 at 21:00 Atorvastatin Calcium (Lipitor) 10 mg HS PO Last administered on 11/08/18at 21:19; Start 11/08/18 at 21:00 Bupropion HCl (Wellbutrin Sr) 150 mg BID PO Last administered on 11/09/18 08:48; Start 11/08/18 at 21:00 Buspirone HCl (Buspar) 15 mg TID PO Last administered on 11/09/18 08:50; Start 11/08/18 at 21:00 Carbamazepine (TEGretol XR) 200 mg QHS PO Last administered on 11/08/18at 21:38; Start 11/08/18 at 21:00 Cetirizine HCl (ZyrTEC) 10 mg DAILY PO Last administered on 11/09/18 08:51; Start 11/09/18 at 09:00 Clonazepam (KlonoPIN) 0.5 mg PRN TID PRN PO ANXIETY / AGITATION; Start 11/08/18 at 21:00 Clopidogrel Bisulfate (Plavix) 75 mg DAILY PO Last administered on 11/09/18 08:50; Start 11/09/18 at 09:00 Cyanocobalamin (Vitamin B-12) 1,000 mcg DAILY PO Last administered on 11/09/18 08:51; Start 11/09/18 at 09:00 Diclofenac Sodium (Voltaren) 100 mac QID TP Last administered on 11/09/18 08:50; Start 11/08/18 at 17:00 Albuterol/ Ipratropium (Duoneb) 3 ml TID NEB Last administered on 11/09/18 08: 15; Start 11/08/18 at 21:00 Metoprolol Succinate (Toprol Xl) 12.5 mg DAILY PO Last administered on 11/09/18 08:51; Start 11/09/18 at 09:00 Nortriptyline HCl (Pamelor) 50 mg HS PO Last administered on 11/08/18 21:45; Start 11/08/18 at 21:00 Fish Oil (Fish Oil) 1,000 mg DAILY PO Last administered on 11/09/18 08:51; Start 11/09/18 at 09:00 Sodium Bicarbonate (Sodium Bicarbonate) 650 mg DAILY PO Last administered on 11/09/18 08:51; Start 11/09/18 at 09:00 Vitamin D (Vitamin D3) 1,000 unit DAILY PO Last administered on 11/09/18 08:51; Start 11/09/18 at 09:00 Duloxetine HCl (Cymbalta) 60 mg DAILY PO Last administered on 11/09/18 08:50; Start 11/09/18 at 09:00 Erythromycin (E-Mycin) 125 mg BID PO Last administered on 11/09/18 08:52; Start 11/08/18 at 21:00 Fluticasone Propionate (Flonase) 2 spray DAILY NS Last administered on 11/09/18 08:52; Start 11/09/18 at 09:00 Insulin Human Lispro (HumaLOG) 15 units TIDWMEALS SQ Last administered on 11/09/18 08:59; Start 11/08/18 at 17:00 Insulin Glargine (Lantus) 80 units Q12HR SQ ; Start 11/08/18 at 21:00; Stop 11/08/18 at 21:00; Status DC Lisinopril (Prinivil) 5 mg DAILY PO Last administered on 11/09/18 08:52; Start 11/09/18 at 09:00 Metformin HCl (Glucophage Xr) 1,000 mg BIDWMEALS PO Last administered on 11/09/18 08:49; Start 11/08/18 at 17:00 Mirtazapine (Remeron) 15 mg QHS PO Last administered on 11/08/18 21:19; Start 11/08/18 at 21:00 Multivitamins (Thera M Plus) 1 tab DAILY PO Last administered on 11/09/18 08:51; Start 11/09/18 at 09:00 Pantoprazole Sodium (Protonix) 40 mg DAILYAC PO Last administered on 11/09/18 08:52; Start 11/09/18 at 07:30 Ropinirole HCl (Requip) 1 mg QHS PO Last administered on 11/08/18 21:18; Start 11/08/18 at 21:00 Zonisamide (Zonegran) 100 mg TID PO Last administered on 11/09/18 08:48; Start 11/08/18 at 21:00 Insulin Human Lispro (HumaLOG) 0-9 UNITS TIDWMEALS SQ Last administered on 11/09/18at 09:00; Start 11/08/18 at 17:00 Dextrose (Dextrose 50%-Water Syringe) 12.5 gm PRN Q15MIN PRN IV SEE COMMENTS; Start 11/08/18 at 16:30 Dextrose (Dextrose 50%-Water Syringe) 12.5 gm PRN Q15MIN PRN IV SEE COMMENTS; Start 11/08/18 at 16:30; Status UNV Insulin Glargine (Lantus) 20 units QHS SQ Last administered on 11/08/18 21:22; Start 11/08/18 at 21:00 Docusate Sodium (Colace) 100 mg DAILY PO Last administered on 11/09/18 08:51; Start 11/09/18 at 09:00 Info (Anti-Coagulation Monitoring By Pharmacy) 1 each PRN DAILY PRN MC SEE COMMENTS Last administered on 11/09/18at 08:05; Start 11/09/18 at 08:00 Docusate Sodium (Colace) 100 mg PRN DAILY PRN PO HARD STOOLS; Start 11/09/18 at 11:00 Polyethylene Glycol (miraLAX PACKET) 17 gm PRN DAILY PRN PO CONSTIPATION; Start 11/09/18 at 11:00 Polyethylene Glycol (miraLAX PACKET) 17 gm 1X ONCE PO Last administered on 11/09/18at 11:08; Start 11/09/18 at 11:00; Stop 11/09/18 at 11:02; Status DC Active Scripts Active Reported Tegretol (Carbamazepine) 200 Mg Tablet 200 Mg PO QHS Metoprolol Succinate ( Xl ) (Metoprolol Succinate) 25 Mg Tab.er.24h 12.5 Mg PO DAILY Klonopin (Clonazepam) 0.5 Mg Tablet 0.5 Mg PO PRN BID PRN Fish Oil 1,000 Mg Capsule ([place]-3 Fatty Acids/Fish Oil) 1 Each Capsule 1 Each PO TID Cymbalta (Duloxetine Hcl) 60 Mg Capsule.dr 60 Mg PO DAILY Loperamide (Loperamide Hcl) 2 Mg Capsule 2 Mg PO Zyrtec (Cetirizine Hcl) 10 Mg Tablet 1 Tab PO DAILY Zonisamide 100 Mg Capsule 100 Mg PO TID Sodium Bicarbonate 650 Mg Tablet 1 Tab PO DAILY Ranitidine Hcl 150 Mg Tablet 150 Mg PO DAILY Protonix (Pantoprazole Sodium) 20 Mg Tablet.dr 40 Mg PO DAILY Nortriptyline Hcl 25 Mg Capsule 50 Mg PO HS Duoneb 0.5-3(2.5) Mg/3 Ml (Albuterol/Ipratropium) 3 Ml Ampul.neb 3 Ml NEB TID Erythromycin (Erythromycin Base) 250 Mg Capsule.dr 125 Mg PO BID Clopidogrel (Clopidogrel Bisulfate) 75 Mg Tablet 1 Tab PO DAILY Atorvastatin Calcium 10 Mg Tablet 10 Mg PO HS Multivitamins (Multivitamin) 1 Each Tablet 1 Tab PO DAILY Mirtazapine 15 Mg Tablet 30 Mg PO QHS Lisinopril 5 Mg Tablet 1 Tab PO DAILY Vitamin B-12 (Cyanocobalamin (Vitamin B-12)) 1,000 Mcg Tablet 1 Tab PO DAILY Vitamin D (Cholecalciferol (Vitamin D3)) 1,000 Unit Capsule 1 Cap PO DAILY Buspirone Hcl 10 Mg Tablet 15 Mg PO TID Ascorbic Acid 500 Mg Tablet 500 Mg PO BID Amlodipine Besylate 5 Mg Tablet 5 Mg PO DAILY Voltaren (Diclofenac Sodium) 100 Gm Gel..gram. 100 Gm TP QID Levemir Flextouch (Insulin Detemir) 100 Unit/1 Ml Insuln.pen 80 Unit SQ BID Flonase Allergy Relief (Fluticasone Propionate) 9.9 Ml [place].susp 2 Spr NS DAILY Wellbutrin Sr (Bupropion Hcl) 150 Mg Tablet.er 1 Tab PO BID Proair Hfa Inhaler (Albuterol Sulfate) 8.5 Gm Hfa.aer.ad 2 Puff IH QID Aspir 81 (Aspirin) 81 Mg Tablet.dr 81 Mg PO DAILY Metformin Hcl Er (Metformin Hcl) 500 Mg Tab.er.24 1,000 Mg PO BIDAC Ropinirole Hcl 1 Mg Tablet 1 Mg PO QHS Novolog (Insulin Aspart) 100 Unit/1 Ml Cartridge 15 Unit SQ TIDAC Vitals/I & O Vital Sign - Last 24 Hours 11/08/18 11/08/18 11/08/18 11/08/18 14:56 15:30 16:00 16:30 Temp 98.7 98.7 Pulse 114 106 106 106 Resp 18 18 18 18 B/P (MAP) 207/95 (132) 175/99 (124) 182/89 (120) 184/90 (121) Pulse Ox 97 94 94 95 O2 Delivery Room Air Room Air Room Air Room Air 11/08/18 11/08/18 11/08/18 11/08/18 17:00 17:30 17:41 17:45 Pulse 106 102 106 94 Resp 18 15 12 B/P (MAP) 184/90 (121) 177/86 (116) 184/90 169/94 (119) Pulse Ox 97 98 97 O2 Delivery Room Air Room Air Room Air 11/08/18 11/08/18 11/08/18 11/08/18 17:50 18:00 18:39 19:00 Temp 98.7 97.8 98.7 97.8 Pulse 76 66 82 Resp 13 18 B/P (MAP) 168/94 (118) 119/70 (86) 129/74 (92) Pulse Ox 97 97 98 O2 Delivery Room Air Room Air Room Air 11/08/18 11/08/18 11/08/18 11/08/18 20:00 20:00 20:22 21:00 Pulse 82 81 Resp 15 22 B/P (MAP) 130/71 (90) 117/57 (77) Pulse Ox 100 96 100 O2 Delivery Room Air Room Air Room Air Room Air 11/08/18 11/09/18 11/09/18 11/09/18 22:00 00:00 00:18 01:15 Temp 97.9 97.9 Pulse 82 80 Resp 22 22 26 B/P (MAP) 134/69 (90) 135/72 (93) 131/64 (86) Pulse Ox 100 99 98 O2 Delivery Room Air Room Air Room Air Room Air 11/09/18 11/09/18 11/09/18 11/09/18 02:00 03:30 04:00 04:30 Pulse 78 90 84 Resp 22 15 B/P (MAP) 117/63 (81) 169/82 (111) 141/83 (102) Pulse Ox 95 95 O2 Delivery Room Air Room Air Room Air Room Air 11/09/18 11/09/18 11/09/18 11/09/18 05:35 06:09 07:00 08:00 Temp 97.6 97.6 Pulse 86 83 84 84 Resp 23 21 20 B/P (MAP) 132/73 (92) 129/70 (89) 153/84 (107) 127/62 (83) Pulse Ox 95 95 95 95 O2 Delivery Room Air Room Air Room Air Room Air 11/09/18 11/09/18 11/09/18 11/09/18 08:00 08:15 08:51 08:51 Pulse 84 84 B/P (MAP) 153/84 153/84 Pulse Ox 97 O2 Delivery Room Air Room Air 11/09/18 11/09/18 11/09/18 08:52 09:00 11:07 Temp 98.5 98.5 Pulse 84 88 91 Resp 20 B/P (MAP) 153/84 122/55 (77) 136/69 (91) Pulse Ox 98 98 O2 Delivery Room Air Room Air Intake and Output 11/08/18 11/08/18 11/09/18 15:00 23:00 07:00 Intake Total 0 ml Balance 0 ml BENSON MERA MD Nov 09, 2018 11:46
--- NOTE | 2018-11-09 13:49 | EKG ---
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
[2018-11-09] MEDS: clonazePAM 0.5 MG TABLET PO PRN (17:46)
--- NOTE | 2018-11-09 19:43 | NUR ---
Pt just reported to this RN that she is not allergic to Requip and that she has taken it every night for years. Pt stated this "Must have been a typo, because without it she will have restless legs all night." Medication removed from allergy list.
--- NOTE | 2018-11-09 20:43 | NUR ---
Pt reported 7/10 headache pain and requested for RN to get Excedrin because this is what she takes at home. RN spoke with Dr. Patterson and received order for Excedrin Q6 hours PRN. Order entered into system.
[2018-11-09] MEDS: MIRTAZAPINE 15 MG TABLET PO SCH (20:51)
[2018-11-09] MEDS: rOPINIRole 1 MG TABLET. PO SCH (20:51)
[2018-11-09] MEDS: NORTRIPTYLINE 25 MG CAPSULE PO SCH (20:51)
[2018-11-09] MEDS: ATORVASTATIN CALCIUM 10 MG TABLET. PO SCH (20:51)
[2018-11-09] MEDS: ASA/APAP/CAFFEINE 250/250/65MG TABLET. PO PRN (20:54)
[2018-11-09] MEDS: INSULIN GLARGINE 300 UNITS/3 ML INSULN.PEN. SQ SCH (21:02)
--- NOTE | 2018-11-09 21:32 | NUR ---
Pt now has c/o 8/10 back and neck pain. Pt requested pain medication to tx this. RN called Dr. Patterson. Received order for 1x dose of Percocet 7.5/325. RN noted pt has allergies to morphine, hydromorphone. Pt stated she has taken oxycodone in the past and has never had reactions to it. Order for medication put into system.
[2018-11-09] MEDS ORDERED: oxyCODONE/APAP 7.5/325 1 TAB TABLET PO ONE (22:00)
[2018-11-09] MEDS ORDERED: ALBUTEROL SULFATE 2.5 MG/3 ML NEBU. NEB PRN (23:15)
[2018-11-10 00:07] LABS: HEMOGLOBIN A1C 8.6 % (4.8-5.6)
[2018-11-10] MEDS: HEPARIN 25,000UTS/500ML PREMIX 500 ML IV PRN (01:08)
[2018-11-10 03:00] VITALS: BP 118/63
[2018-11-10] MEDS: ASA/APAP/CAFFEINE 250/250/65MG TABLET. PO PRN ×2 (03:13→11:01)
[2018-11-10 07:00] VITALS: BP 117/66
[2018-11-10] MEDS: metFORMIN XR 500 MG TAB.ER.24H PO SCH ×2 (08:28→17:24)
[2018-11-10] MEDS: PANTOPRAZOLE 40 MG TABLET.DR. PO SCH (08:28)
[2018-11-10] MEDS: INSULIN LISPRO 300 UNITS/3 ML INSULN.PEN. SQ SCH ×6 (08:31→17:00)
[2018-11-10] MEDS: ASCORBIC ACID 500 MG TABLET PO SCH ×2 (08:45→21:15)
[2018-11-10] MEDS: OMEGA-3 FATTY ACIDS/FISH OIL 1,000 MG CAPSULE. PO SCH (08:45)
[2018-11-10] MEDS: LISINOPRIL 5 MG TABLET. PO SCH (08:46)
[2018-11-10] MEDS: CHOLECALCIFEROL (VITAMIN D3) 1,000 UNIT TABLET PO SCH (08:46)
[2018-11-10] MEDS: ERYTHROMYCIN BASE 250 MG TABLET PO SCH ×2 (08:46→21:15)
[2018-11-10] MEDS: SODIUM BICARBONATE 650 MG TABLET. PO SCH (08:46)
[2018-11-10] MEDS: MULTIVITAMIN with MINERAL TABLET. PO SCH (08:47)
[2018-11-10] MEDS: CYANOCOBALAMIN (VITAMIN B-12) 1,000 MCG TABLET. PO SCH (08:47)
[2018-11-10] MEDS: amLODIPine BESYLATE 5 MG TABLET PO SCH (08:47)
[2018-11-10] MEDS: CLOPIDOGREL BISULFATE 75 MG TABLET PO SCH (08:48)
[2018-11-10] MEDS: busPIRone 10 MG TABLET. PO SCH ×3 (08:48→21:15)
[2018-11-10] MEDS: clonazePAM 0.5 MG TABLET PO PRN ×2 (08:48→22:08)
[2018-11-10] MEDS: CETIRIZINE HCL 10 MG TABLET. PO SCH (08:48)
[2018-11-10] MEDS: buPROPion SR 150 MG TABLET.SA PO SCH ×2 (08:48→21:14)
[2018-11-10] MEDS: ZONISAMIDE 100 MG CAPSULE. PO SCH ×3 (08:48→21:14)
[2018-11-10] MEDS: DICLOFENAC SODIUM 1% TOPICAL GEL 100GM TUBE. TP SCH ×4 (08:49→21:16)
[2018-11-10] MEDS: DOCUSATE SODIUM 100 MG CAPSULE. PO SCH (08:49)
[2018-11-10] MEDS: METOPROLOL SUCC 24HR ER 25 MG TAB.ER.24H. PO SCH (08:49)
[2018-11-10] MEDS: DULoxetine HCL 30 MG CAPSULE.DR PO SCH (08:49)
[2018-11-10] MEDS: FLUTICASONE 50MCG/NASAL SPRAY 16GM BOTTLE. NS SCH (08:50)
[2018-11-10] MEDS: IPRATRPIUM/ALBUTEROL 0.5/2.5MG 3 ML NEBU. NEB SCH ×3 (08:57→20:02)
[2018-11-10] MEDS: ANTI-COAG MONITOR BY PHARMACY. MC PRN (09:43)
[2018-11-10 11:00] VITALS: BP 84/46
[2018-11-10] MEDS: LIDOCAINE (700MG/PATCH) PATCH. TD SCH (11:38)
[2018-11-10] MEDS: oxyCODONE/APAP 5/325 1 TAB TABLET PO PRN ×2 (12:09→21:14)
--- NOTE | 2018-11-10 12:43 | PDOC ---
PROGRESS NOTES Chief Complaint Chief Complaint 1. NSTEMI, trop peak 25 2. CAD: see 2018 LHC 3. Accelerated HTN 4. HLP 5. Nontraumatic mechanical fall: Sunday. 6. Obesity - BMI 32 7. Hypokalmeia 8. DM 2 on insulin 9. back pain, MS, History of Present Illness History of Present Illness CVC status, back pain, try lidoderm patch, consult Physiatry, plan cardiac cath per CV note, I have reconciled all home meds except asa but did cont plavix (since on heparin gtt) Polypharmacy Check A1c Sliding scale insulin high-dose Colace stool softener to avoid straining Vitals Vitals Vital Signs Date Time Temp Pulse Resp B/P (MAP) Pulse Ox O2 Delivery O2 Flow Rate FiO2 11/10/18 12:09 18 97 Room Air 11/10/18 11:00 98.0 100 84/46 (59) 98.0 Physical Exam General: Alert, No acute distress Heart: Regular rate Lungs: Clear Abdomen: Normal bowel sounds Extremities: No clubbing, No cyanosis, No edema, Normal pulses, No tenderness/swelling Skin: No rashes, No breakdown, No significant lesion Labs LABS Laboratory Tests Test 11/09/18 17:52 11/09/18 18:40 11/09/18 21:00 11/10/18 01:00 Glucose (Fingerstick) 124 mg/dL (70-99) 302 mg/dL (70-99) Heparin Anti-Xa Act, Unfractionated 0.50 IU/mL (0.30-0.70) 0.36 IU/mL (0.30-0.70) Test 11/10/18 07:10 11/10/18 08:25 11/10/18 11:42 Heparin Anti-Xa Act, Unfractionated 0.39 IU/mL (0.30-0.70) Glucose (Fingerstick) 160 mg/dL (70-99) 202 mg/dL (70-99) Assessment and Plan Assessmemt and Plan Problems Medical Problems: (1) Congestive heart failure Status: Acute (2) Hypomagnesemia Status: Acute (3) NSTEMI (non-ST elevated myocardial infarction) Status: Acute (4) Renal insufficiency Status: Acute (5) Severe sepsis Status: Acute (6) Uncontrolled diabetes mellitus Status: Acute Comment Review of Relevant I have reviewed the following items danisha (where applicable) has been applied. Labs Laboratory Tests Test 11/08/18 14:58 11/08/18 17:38 11/08/18 18:30 11/08/18 19:45 White Blood Count 16.5 x10^3/uL (4.0-11.0) Red Blood Count 4.08 x10^6/uL (3.50-5.40) Hemoglobin 12.4 g/dL (12.0-15.5) Hematocrit 37.1 % (36.0-47.0) Mean Corpuscular Volume 91 fL (79-100) Mean Corpuscular Hemoglobin 30 pg (25-35) Mean Corpuscular Hemoglobin Concent 33 g/dL (31-37) Red Cell Distribution Width 14.9 % (11.5-14.5) Platelet Count 565 x10^3/uL (140-400) Neutrophils (%) (Auto) 55 % (31-73) Lymphocytes (%) (Auto) 34 % (24-48) Monocytes (%) (Auto) 8 % (0-9) Eosinophils (%) (Auto) 2 % (0-3) Basophils (%) (Auto) 1 % (0-3) Neutrophils # (Auto) 9.0 x10^3/uL (1.8-7.7) Lymphocytes # (Auto) 5.6 x10^3/uL (1.0-4.8) Monocytes # (Auto) 1.3 x10^3/uL (0.0-1.1) Eosinophils # (Auto) 0.4 x10^3/uL (0.0-0.7) Basophils # (Auto) 0.2 x10^3/uL (0.0-0.2) Prothrombin Time 14.1 SEC (11.7-14.0) Prothromb Time International Ratio 1.1 (0.8-1.1) Sodium Level 136 mmol/L (136-145) Potassium Level 3.4 mmol/L (3.5-5.1) Chloride Level 98 mmol/L (98-107) Carbon Dioxide Level 21 mmol/L (21-32) Anion Gap 17 (6-14) Blood Urea Nitrogen 25 mg/dL (7-20) Creatinine 1.2 mg/dL (0.6-1.0) Estimated GFR (Cockcroft-Gault) 44.0 BUN/Creatinine Ratio 21 (6-20) Glucose Level 246 mg/dL (70-99) Hemoglobin A1c 8.6 % (4.8-5.6) Lactic Acid Level 4.2 mmol/L (0.4-2.0) 2.7 mmol/L (0.4-2.0) Calcium Level 9.8 mg/dL (8.5-10.1) Magnesium Level 1.3 mg/dL (1.8-2.4) Total Bilirubin 0.2 mg/dL (0.2-1.0) Aspartate Amino Transf (AST/SGOT) 81 U/L (15-37) Alanine Aminotransferase (ALT/SGPT) 30 U/L (14-59) Alkaline Phosphatase 84 U/L (46-116) Creatine Kinase 378 U/L (26-192) Creatine Kinase MB (Mass) 23.4 ng/mL (0.0-3.6) Creatine Kinase MB Relative Index 6.2 % (0-4) Troponin I Quantitative 28.899 ng/mL (0.000-0.055) 25.572 ng/mL (0.000-0.055) JL-Yki-U-Type Natriuretic Peptide 4244 pg/mL (0-124) Total Protein 9.4 g/dL (6.4-8.2) Albumin 4.0 g/dL (3.4-5.0) Albumin/Globulin Ratio 0.7 (1.0-1.7) Lipase 125 U/L (73-393) Glucose (Fingerstick) 141 mg/dL (70-99) Nasal Screen MRSA (PCR) Positive (Negative) Test 11/08/18 21:13 11/08/18 22:10 11/09/18 05:15 11/09/18 07:10 Glucose (Fingerstick) 98 mg/dL (70-99) Heparin Anti-Xa Act, Unfractionated 0.36 IU/mL (0.30-0.70) 0.12 IU/mL (0.30-0.70) Troponin I Quantitative 14.118 ng/mL (0.000-0.055) 7.700 ng/mL (0.000-0.055) White Blood Count 10.4 x10^3/uL (4.0-11.0) Red Blood Count 2.98 x10^6/uL (3.50-5.40) Hemoglobin 8.9 g/dL (12.0-15.5) Hematocrit 27.1 % (36.0-47.0) Mean Corpuscular Volume 91 fL (79-100) Mean Corpuscular Hemoglobin 30 pg (25-35) Mean Corpuscular Hemoglobin Concent 33 g/dL (31-37) Red Cell Distribution Width 15.0 % (11.5-14.5) Platelet Count 397 x10^3/uL (140-400) Sodium Level 138 mmol/L (136-145) Potassium Level 3.9 mmol/L (3.5-5.1) Chloride Level 103 mmol/L (98-107) Carbon Dioxide Level 22 mmol/L (21-32) Anion Gap 13 (6-14) Blood Urea Nitrogen 17 mg/dL (7-20) Creatinine 1.0 mg/dL (0.6-1.0) Estimated GFR (Cockcroft-Gault) 54.3 Glucose Level 152 mg/dL (70-99) Calcium Level 8.7 mg/dL (8.5-10.1) Magnesium Level 2.0 mg/dL (1.8-2.4) Triglycerides Level 322 mg/dL (0-150) Cholesterol Level 195 mg/dL (0-200) LDL Cholesterol, Calculated 85 mg/dL (0-100) VLDL Cholesterol, Calculated 64 mg/dL (0-40) Non-HDL Cholesterol Calculated 149 mg/dL (0-129) HDL Cholesterol 46 mg/dL (40-60) Cholesterol/HDL Ratio 4.2 Test 11/09/18 08:17 11/09/18 11:02 11/09/18 11:59 11/09/18 17:52 Glucose (Fingerstick) 175 mg/dL (70-99) 231 mg/dL (70-99) 124 mg/dL (70-99) Heparin Anti-Xa Act, Unfractionated 0.74 IU/mL (0.30-0.70) Test 11/09/18 18:40 11/09/18 21:00 11/10/18 01:00 11/10/18 07:10 Heparin Anti-Xa Act, Unfractionated 0.50 IU/mL (0.30-0.70) 0.36 IU/mL (0.30-0.70) 0.39 IU/mL (0.30-0.70) Glucose (Fingerstick) 302 mg/dL (70-99) Test 11/10/18 08:25 11/10/18 11:42 Glucose (Fingerstick) 160 mg/dL (70-99) 202 mg/dL (70-99) Laboratory Tests Test 11/09/18 17:52 11/09/18 18:40 11/09/18 21:00 11/10/18 01:00 Glucose (Fingerstick) 124 mg/dL (70-99) 302 mg/dL (70-99) Heparin Anti-Xa Act, Unfractionated 0.50 IU/mL (0.30-0.70) 0.36 IU/mL (0.30-0.70) Test 11/10/18 07:10 11/10/18 08:25 11/10/18 11:42 Heparin Anti-Xa Act, Unfractionated 0.39 IU/mL (0.30-0.70) Glucose (Fingerstick) 160 mg/dL (70-99) 202 mg/dL (70-99) Microbiology 11/08/18 Blood Culture - Preliminary, Resulted NO GROWTH AFTER 1 DAY Medications Current Medications Heparin Sodium/ Dextrose 500 ml @ 0 mls/hr CONT PRN IV SEE I/O RECORD Last administered on 11/10/18at 01:08; Start 11/08/18 at 16:00 Heparin Sodium (Porcine) (Heparin Sodium) 1,650 unit PRN Q6HRS PRN IV FOR UFH LEVEL LESS THAN 0.2 Last administered on 11/09/18at 08:15; Start 11/08/18 at 16:00 Heparin Sodium (Porcine) (Heparin Sodium) 4,000 unit 1X ONCE IV Last administered on 11/08/18at 16:09; Start 11/08/18 at 16:15; Stop 11/08/18 at 16:16; Status DC Nitroglycerin/ Dextrose 250 ml @ 0 mls/hr 1X ONCE IV Last administered on 11/08/18at 16:41; Start 11/08/18 at 16:15; Stop 11/08/18 at 16:16; Status DC Labetalol HCl (Normodyne Iv Push) 20 mg 1X ONCE IVP Last administered on 11/08/18at 17:41; Start 11/08/18 at 16:15; Stop 11/08/18 at 16:16; Status DC Piperacillin Sod/ Tazobactam Sod 3.375 gm/Sodium Chloride 50 ml @ 100 mls/hr 1X ONCE IV Last administered on 11/08/18at 16:55; Start 11/08/18 at 16:15; Stop 11/08/18 at 16:44; Status DC Nitroglycerin/ Dextrose 250 ml @ 0 mls/hr 1X ONCE IV ; Start 11/08/18 at 16:15; Stop 11/08/18 at 16:16; Status UNV Potassium Chloride (Klor-Con) 40 meq 1X ONCE PO Last administered on 11/08/18at 16:58; Start 11/08/18 at 16:15; Stop 11/08/18 at 16:16; Status DC Magnesium Sulfate/ Dextrose 100 ml @ 25 mls/hr 1X ONCE IV Last administered on 11/08/18at 16:55; Start 11/08/18 at 16:15; Stop 11/08/18 at 20:14; Status DC Sodium Chloride 1,000 ml @ 60 mls/hr 1X ONCE IV Last administered on 11/08/18at 17:47; Start 11/08/18 at 16:15; Stop 11/09/18 at 08:54; Status DC Albuterol Sulfate (Ventolin Neb Soln) 2.5 mg RTQID INH ; Start 11/08/18 at 20:00; Stop 11/09/18 at 08:27; Status DC Amlodipine Besylate (Norvasc) 5 mg DAILY PO Last administered on 11/10/18at 08:47; Start 11/09/18 at 09:00 Ascorbic Acid (Vitamin C) 500 mg BID PO Last administered on 11/10/18at 08:45; Start 11/08/18 at 21:00 Atorvastatin Calcium (Lipitor) 10 mg HS PO Last administered on 11/09/18at 20:51; Start 11/08/18 at 21:00 Bupropion HCl (Wellbutrin Sr) 150 mg BID PO Last administered on 11/10/18at 08:48; Start 11/08/18 at 21:00 Buspirone HCl (Buspar) 15 mg TID PO Last administered on 11/10/18 08:48; Start 11/08/18 at 21:00 Carbamazepine (TEGretol XR) 200 mg QHS PO Last administered on 11/09/18 20:51; Start 11/08/18 at 21:00 Cetirizine HCl (ZyrTEC) 10 mg DAILY PO Last administered on 11/10/18 08:48; Start 11/09/18 at 09:00 Clonazepam (KlonoPIN) 0.5 mg PRN TID PRN PO ANXIETY / AGITATION Last administered on 11/10/18 08:48; Start 11/08/18 at 21:00 Clopidogrel Bisulfate (Plavix) 75 mg DAILY PO Last administered on 11/10/18 08:48; Start 11/09/18 at 09:00 Cyanocobalamin (Vitamin B-12) 1,000 mcg DAILY PO Last administered on 11/10/18 08:47; Start 11/09/18 at 09:00 Diclofenac Sodium (Voltaren) 100 mac QID TP Last administered on 11/10/18 08:49; Start 11/08/18 at 17:00 Albuterol/ Ipratropium (Duoneb) 3 ml TID NEB Last administered on 11/10/18 08:57; Start 11/08/18 at 21:00 Metoprolol Succinate (Toprol Xl) 12.5 mg DAILY PO Last administered on 11/10/18 08:49; Start 11/09/18 at 09:00 Nortriptyline HCl (Pamelor) 50 mg HS PO Last administered on 11/09/18 20:51; Start 11/08/18 at 21:00 Fish Oil (Fish Oil) 1,000 mg DAILY PO Last administered on 11/10/18 08:45; Start 11/09/18 at 09:00 Sodium Bicarbonate (Sodium Bicarbonate) 650 mg DAILY PO Last administered on 08:46; Start 11/09/18 at 09:00 Vitamin D (Vitamin D3) 1,000 unit DAILY PO Last administered on 11/10/18 08:46; Start 11/09/18 at 09:00 Duloxetine HCl (Cymbalta) 60 mg DAILY PO Last administered on 11/10/18 08:49; Start 11/09/18 at 09:00 Erythromycin (E-Mycin) 125 mg BID PO Last administered on 11/10/18 08:46; Start 11/08/18 at 21:00 Fluticasone Propionate (Flonase) 2 spray DAILY NS Last administered on 11/10/18 08:50; Start 11/09/18 at 09:00 Insulin Human Lispro (HumaLOG) 15 units TIDWMEALS SQ Last administered on 11/10/18 12:33; Start 11/08/18 at 17:00 Insulin Glargine (Lantus) 80 units Q12HR SQ ; Start 11/08/18 at 21:00; Stop 11/08/18 at 21:00; Status DC Lisinopril (Prinivil) 5 mg DAILY PO Last administered on 11/10/18 08:46; Start 11/09/18 at 09:00 Metformin HCl (Glucophage Xr) 1,000 mg BIDWMEALS PO Last administered on 11/10/18 08:28; Start 11/08/18 at 17:00 Mirtazapine (Remeron) 15 mg QHS PO Last administered on 11/09/18 20:51; Start 11/08/18 at 21:00 Multivitamins (Thera M Plus) 1 tab DAILY PO Last administered on 11/10/18 08:47; Start 11/09/18 at 09:00 Pantoprazole Sodium (Protonix) 40 mg DAILYAC PO Last administered on 11/10/18 08:28; Start 11/09/18 at 07:30 Ropinirole HCl (Requip) 1 mg QHS PO Last administered on 11/09/18 20:51; Start 11/08/18 at 21:00 Zonisamide (Zonegran) 100 mg TID PO Last administered on 11/10/18 08:48; Start 11/08/18 at 21:00 Insulin Human Lispro (HumaLOG) 0-9 UNITS TIDWMEALS SQ Last administered on 11/10/18 12:33; Start 11/08/18 at 17:00 Dextrose (Dextrose 50%-Water Syringe) 12.5 gm PRN Q15MIN PRN IV SEE COMMENTS; Start 11/08/18 at 16:30 Dextrose (Dextrose 50%-Water Syringe) 12.5 gm PRN Q15MIN PRN IV SEE COMMENTS; Start 11/08/18 at 16:30; Status UNV Insulin Glargine (Lantus) 20 units QHS SQ Last administered on 11/09/18at 21:02; Start 11/08/18 at 21:00 Docusate Sodium (Colace) 100 mg DAILY PO Last administered on 11/09/18at 08:51; Start 11/09/18 at 09:00 Info (Anti-Coagulation Monitoring By Pharmacy) 1 each PRN DAILY PRN MC SEE COMMENTS Last administered on 11/10/18at 09:43; Start 11/09/18 at 08:00 Docusate Sodium (Colace) 100 mg PRN DAILY PRN PO HARD STOOLS; Start 11/09/18 at 11:00 Polyethylene Glycol (miraLAX PACKET) 17 gm PRN DAILY PRN PO CONSTIPATION; Start 11/09/18 at 11:00 Polyethylene Glycol (miraLAX PACKET) 17 gm 1X ONCE PO Last administered on 11/09/18at 11:08; Start 11/09/18 at 11:00; Stop 11/09/18 at 11:02; Status DC Acetaminophen/ Aspirin/Caffeine (Excedrin Migraine) 1 tab PRN Q6HRS PRN PO MIGRAINE HEADACHE Last administered on 11/10/18at 11:01; Start 11/09/18 at 20:45 Oxycodone/ Acetaminophen (Percocet 7.5/ 325) 1 tab 1X ONCE PO Last administered on 11/09/18at 21:59; Start 11/09/18 at 22:00; Stop 11/09/18 at 22:01; Status DC Albuterol Sulfate (Ventolin Neb Soln) 2.5 mg PRN Q4HRS PRN NEB SHORTNESS OF BREATH; Start 11/09/18 at 23:15 Lidocaine (Lidoderm) 1 patch DAILY TD Last administered on 11/10/18at 11:38; Start 11/10/18 at 12:00 Miscellaneous (Lidoderm Patch Removal) 1 ea QHS MC ; Start 11/10/18 at 21:00 Cyclobenzaprine HCl (Flexeril) 10 mg PRN Q6HRS PRN PO MUSCLE SPASMS; Start 11/10/18 at 11:30 Oxycodone/ Acetaminophen (Percocet 5/325) 1 tab PRN Q4HRS PRN PO PAIN Last administered on 11/10/18at 12:09; Start 11/10/18 at 11:30 Active Scripts Active Reported Tegretol (Carbamazepine) 200 Mg Tablet 200 Mg PO QHS Metoprolol Succinate ( Xl ) (Metoprolol Succinate) 25 Mg Tab.er.24h 12.5 Mg PO DAILY Klonopin (Clonazepam) 0.5 Mg Tablet 0.5 Mg PO PRN BID PRN Fish Oil 1,000 Mg Capsule (Patrick-3 Fatty Acids/Fish Oil) 1 Each Capsule 1 Each PO TID Cymbalta (Duloxetine Hcl) 60 Mg Capsule.dr 60 Mg PO DAILY Loperamide (Loperamide Hcl) 2 Mg Capsule 2 Mg PO Zyrtec (Cetirizine Hcl) 10 Mg Tablet 1 Tab PO DAILY Zonisamide 100 Mg Capsule 100 Mg PO TID Sodium Bicarbonate 650 Mg Tablet 1 Tab PO DAILY Ranitidine Hcl 150 Mg Tablet 150 Mg PO DAILY Protonix (Pantoprazole Sodium) 20 Mg Tablet.dr 40 Mg PO DAILY Nortriptyline Hcl 25 Mg Capsule 50 Mg PO HS Duoneb 0.5-3(2.5) Mg/3 Ml (Albuterol/Ipratropium) 3 Ml Ampul.neb 3 Ml NEB TID Erythromycin (Erythromycin Base) 250 Mg Capsule.dr 125 Mg PO BID Clopidogrel (Clopidogrel Bisulfate) 75 Mg Tablet 1 Tab PO DAILY Atorvastatin Calcium 10 Mg Tablet 10 Mg PO HS Multivitamins (Multivitamin) 1 Each Tablet 1 Tab PO DAILY Mirtazapine 15 Mg Tablet 30 Mg PO QHS Lisinopril 5 Mg Tablet 1 Tab PO DAILY Vitamin B-12 (Cyanocobalamin (Vitamin B-12)) 1,000 Mcg Tablet 1 Tab PO DAILY Vitamin D (Cholecalciferol (Vitamin D3)) 1,000 Unit Capsule 1 Cap PO DAILY Buspirone Hcl 10 Mg Tablet 15 Mg PO TID Ascorbic Acid 500 Mg Tablet 500 Mg PO BID Amlodipine Besylate 5 Mg Tablet 5 Mg PO DAILY Voltaren (Diclofenac Sodium) 100 Gm Gel..gram. 100 Gm TP QID Levemir Flextouch (Insulin Detemir) 100 Unit/1 Ml Insuln.pen 80 Unit SQ BID Flonase Allergy Relief (Fluticasone Propionate) 9.9 Ml Hermleigh.susp 2 Spr NS DAILY Wellbutrin Sr (Bupropion Hcl) 150 Mg Tablet.er 1 Tab PO BID Proair Hfa Inhaler (Albuterol Sulfate) 8.5 Gm Hfa.aer.ad 2 Puff IH QID Aspir 81 (Aspirin) 81 Mg Tablet.dr 81 Mg PO DAILY Metformin Hcl Er (Metformin Hcl) 500 Mg Tab.er.24 1,000 Mg PO BIDAC Ropinirole Hcl 1 Mg Tablet 1 Mg PO QHS Novolog (Insulin Aspart) 100 Unit/1 Ml Cartridge 15 Unit SQ TIDAC Vitals/I & O Vital Sign - Last 24 Hours 11/09/18 11/09/18 11/09/18 11/09/18 13:14 15:27 19:00 19:00 Temp 98.0 98.0 Pulse 85 86 Resp 22 B/P (MAP) 102/60 (74) 109/56 (73) Pulse Ox 98 97 O2 Delivery Room Air Room Air Room Air 11/09/18 11/09/18 11/09/18 11/09/18 20:00 20:05 21:59 22:59 Resp 20 23 Pulse Ox 98 95 97 O2 Delivery Room Air Room Air Room Air Room Air 11/09/18 11/09/18 11/10/18 11/10/18 23:00 23:29 03:00 07:00 Temp 98.3 98.5 97.7 98.3 98.5 97.7 Pulse 103 92 84 Resp 26 24 19 B/P (MAP) 115/57 (76) 118/63 (81) 117/66 (83) Pulse Ox 95 95 95 96 O2 Delivery Room Air Room Air Room Air Room Air 11/10/18 11/10/18 11/10/18 11/10/18 08:00 08:46 08:47 08:49 Pulse 92 92 92 B/P (MAP) 117/66 117/66 117/66 O2 Delivery Room Air 11/10/18 11/10/18 11/10/18 08:58 11:00 12:09 Temp 98.0 98.0 Pulse 100 Resp 25 18 B/P (MAP) 84/46 (59) Pulse Ox 95 99 97 O2 Delivery Room Air Room Air Room Air Intake and Output 11/09/18 11/09/18 11/10/18 15:00 23:00 07:00 Intake Total 1397.41 ml Balance 1397.41 ml TANNER COMER MD Nov 10, 2018 12:43
--- NOTE | 2018-11-10 14:20 | CARD ---
MR#: [id number] Date of Study: 11/10/2018 Ordering Physician: DARRION GARCIA, Referring Physician: WALDEMAR COE Tech: Naima Gann [facility] APPROVED REPORT EXAM: Two-dimensional and M-mode echocardiogram with Doppler and color Doppler. Other Information Quality : Technically Limited Technically limited study due to body habitus. INDICATION Acute Coronary Syndrome 2D DIMENSIONS Left Atrium(2D)3.3 (1.6-4.0cm)IVSd1.4 (0.7-1.1cm) Aortic Root(2D)3.1 (2.0-3.7cm)LVDd4.5 (3.9-5.9cm) LVOT Diameter1.8 (1.8-2.4cm)PWd0.8 (0.7-1.1cm) LVDs3.6 (2.5-4.0cm)FS (%) 19.4 % SV37.2 mlLVEF(%)40.0 (>50%) Aortic Valve AoV Peak Vicente.169.9cm/sAoV VTI29.7cm AO Peak GR.11.5mmHgLVOT VTI 16.26cm AO Mean GR.8mmHg Mitral Valve MV E Gbprqbrr739.5cm/sMV DECEL [id number] MV A Uowzzabs076.6cm/sE/A Ratio1.1 TDI Lateral E' P. V5.28cm/sMedial E' P. V3.73cm/s E/Lateral E'24.7E/Medial E'35.0 Tricuspid Valve TR P. Pcyfswqe246ny/sRAP [id number] TR Peak Gr.[id number] Pulmonary Vein S1 Rcyerjgt72.9cm/sS2 Pqvydrll09.89cm/s D2 Fumsxvue31.9cm/s LEFT VENTRICLE The left ventricle is normal size. There is mild asymmetric septal hypertrophy. Left ventricle systol ic function is mildly impaired. The Ejection Fraction is estimated at 40%. There is mild hypokinesis in the mid to distal septal and inferior oreilly. Transmitral Doppler flow pattern is Grade II-pseudono rmal filling dynamics. RIGHT VENTRICLE The right ventricle is normal size. The right ventricular systolic function is normal. ATRIA The left atrium size is normal. The right atrium size is normal. The interatrial septum is intact wit h no evidence for an atrial septal defect or patent foramen ovale as noted on 2-D or Doppler imaging. AORTIC VALVE The aortic valve is not well visualized but appears to be functioning normally by Doppler interrogati on. Doppler and Color Flow revealed no significant aortic regurgitation. There is no significant aort ic valvular stenosis. MITRAL VALVE The mitral valve is calcified but opens well. There is no evidence of mitral valve prolapse. There is no mitral valve stenosis. Doppler and Color-flow revealed trace mitral regurgitation. TRICUSPID VALVE The tricuspid valve is normal in structure and function. Doppler and Color Flow revealed mild tricusp id regurgitation. The PA pressure was estimated at 43 mmHg. There is no tricuspid valve stenosis. PULMONIC VALVE The pulmonic valve is not well visualized. Doppler and Color Flow revealed no pulmonic valvular regur gitation. There is no pulmonic valvular stenosis. GREAT VESSELS The aortic root is normal in size. The ascending aorta is not well seen. The IVC is normal in size an d collapses >50% with inspiration. PERICARDIAL EFFUSION There is no evidence of significant pericardial effusion. Critical Notification Critical Value: No <Conclusion> The left ventricle is normal size. Left ventricle systolic function is mildly impaired. The Ejection Fraction is estimated at 40%. There is mild hypokinesis in the mid to distal septal and inferior oreilly. There is no significant aortic valvular stenosis. Doppler and Color Flow revealed no significant aortic regurgitation. Doppler and Color-flow revealed trace mitral regurgitation. Doppler and Color Flow revealed mild tricuspid regurgitation. The PA pressure was estimated at 43 mmHg. Signed by : Dexter Jaime MD Electronically Approved : 11/10/2018 14:19:46
[2018-11-10 15:00] VITALS: BP 98/54
--- NOTE | 2018-11-10 15:08 | PDOC ---
PROGRESS NOTES Subjective Subjective Patient seen and examined The patient remains chest pain-free. Objective Objective Vital Signs Date Time Temp Pulse Resp B/P (MAP) Pulse Ox O2 Delivery O2 Flow Rate FiO2 11/10/18 13:58 96 Room Air 11/10/18 12:09 18 11/10/18 11:00 98.0 100 84/46 (59) 98.0 Intake and Output 11/10/18 07:00 Intake Total 1397.41 ml Balance 1397.41 ml Intake Oral 1000 ml IV Total 397.41 ml # Voids 5 # Bowel Movements 2 Physical Exam Abdomen: Normal bowel sounds Heart: Regular rate General: No acute distress Lungs: Clear to auscultation Assessment Assessment Problems Medical Problems: (1) Congestive heart failure Status: Acute (2) Hypomagnesemia Status: Acute (3) NSTEMI (non-ST elevated myocardial infarction) Status: Acute (4) Renal insufficiency Status: Acute (5) Severe sepsis Status: Acute (6) Uncontrolled diabetes mellitus Status: Acute 1. ACS. Chest pain with a history of coronary artery disease. Catheterization as above showed heavily calcified vessels and difficult stent placement to the mid and distal LAD last year. Patient developed chest pain starting 3-4 days ago which was recurrent. Her pain today started approximately 8 hours ago and she went to her primary care physician's office. EKG there was suggestive of ischemia and the patient was transferred to the emergency room. In the emergency room the patient was severely hypertensive and started on IV nitroglycerin as well as heparin. On present treatment her chest pain has resolved. Her repeat EKG was improved. Patient has remained pain-free since admission.Troponin has trended down from 28-7.7. We'll continue on present treatment. We'll proceed with cardiac catheterization in the morning. 2. Accelerated hypertension. Treated with IV nitroglycerin. Resolved. We'll adjust oral medications. 3. Hyperlipidemia. 4. Replacement of magnesium and potassium with close monitoring. Lab pending. 5. History of possible hematological disease. Patient states her workup has been negative. Comment Review of Relevant I have reviewed the following items danisha (where applicable) has been applied. Labs Laboratory Tests Test 11/08/18 17:38 11/08/18 18:30 11/08/18 19:45 11/08/18 21:13 Glucose (Fingerstick) 141 mg/dL (70-99) 98 mg/dL (70-99) Lactic Acid Level 2.7 mmol/L (0.4-2.0) Troponin I Quantitative 25.572 ng/mL (0.000-0.055) Nasal Screen MRSA (PCR) Positive (Negative) Test 11/08/18 22:10 11/09/18 05:15 11/09/18 07:10 11/09/18 08:17 Heparin Anti-Xa Act, Unfractionated 0.36 IU/mL (0.30-0.70) 0.12 IU/mL (0.30-0.70) Troponin I Quantitative 14.118 ng/mL (0.000-0.055) 7.700 ng/mL (0.000-0.055) White Blood Count 10.4 x10^3/uL (4.0-11.0) Red Blood Count 2.98 x10^6/uL (3.50-5.40) Hemoglobin 8.9 g/dL (12.0-15.5) Hematocrit 27.1 % (36.0-47.0) Mean Corpuscular Volume 91 fL (79-100) Mean Corpuscular Hemoglobin 30 pg (25-35) Mean Corpuscular Hemoglobin Concent 33 g/dL (31-37) Red Cell Distribution Width 15.0 % (11.5-14.5) Platelet Count 397 x10^3/uL (140-400) Sodium Level 138 mmol/L (136-145) Potassium Level 3.9 mmol/L (3.5-5.1) Chloride Level 103 mmol/L (98-107) Carbon Dioxide Level 22 mmol/L (21-32) Anion Gap 13 (6-14) Blood Urea Nitrogen 17 mg/dL (7-20) Creatinine 1.0 mg/dL (0.6-1.0) Estimated GFR (Cockcroft-Gault) 54.3 Glucose Level 152 mg/dL (70-99) Calcium Level 8.7 mg/dL (8.5-10.1) Magnesium Level 2.0 mg/dL (1.8-2.4) Triglycerides Level 322 mg/dL (0-150) Cholesterol Level 195 mg/dL (0-200) LDL Cholesterol, Calculated 85 mg/dL (0-100) VLDL Cholesterol, Calculated 64 mg/dL (0-40) Non-HDL Cholesterol Calculated 149 mg/dL (0-129) HDL Cholesterol 46 mg/dL (40-60) Cholesterol/HDL Ratio 4.2 Glucose (Fingerstick) 175 mg/dL (70-99) Test 11/09/18 11:02 11/09/18 11:59 11/09/18 17:52 11/09/18 18:40 Heparin Anti-Xa Act, Unfractionated 0.74 IU/mL (0.30-0.70) 0.50 IU/mL (0.30-0.70) Glucose (Fingerstick) 231 mg/dL (70-99) 124 mg/dL (70-99) Test 11/09/18 21:00 11/10/18 01:00 11/10/18 07:10 11/10/18 08:25 Glucose (Fingerstick) 302 mg/dL (70-99) 160 mg/dL (70-99) Heparin Anti-Xa Act, Unfractionated 0.36 IU/mL (0.30-0.70) 0.39 IU/mL (0.30-0.70) Test 11/10/18 11:42 Glucose (Fingerstick) 202 mg/dL (70-99) Laboratory Tests Test 11/09/18 17:52 11/09/18 18:40 11/09/18 21:00 11/10/18 01:00 Glucose (Fingerstick) 124 mg/dL (70-99) 302 mg/dL (70-99) Heparin Anti-Xa Act, Unfractionated 0.50 IU/mL (0.30-0.70) 0.36 IU/mL (0.30-0.70) Test 11/10/18 07:10 11/10/18 08:25 11/10/18 11:42 Heparin Anti-Xa Act, Unfractionated 0.39 IU/mL (0.30-0.70) Glucose (Fingerstick) 160 mg/dL (70-99) 202 mg/dL (70-99) Microbiology 11/08/18 Blood Culture - Preliminary, Resulted NO GROWTH AFTER 1 DAY Medications Current Medications Heparin Sodium/ Dextrose 500 ml @ 0 mls/hr CONT PRN IV SEE I/O RECORD Last administered on 11/10/18at 01:08; Start 11/08/18 at 16:00 Heparin Sodium (Porcine) (Heparin Sodium) 1,650 unit PRN Q6HRS PRN IV FOR UFH LEVEL LESS THAN 0.2 Last administered on 11/09/18at 08:15; Start 11/08/18 at 16:00 Heparin Sodium (Porcine) (Heparin Sodium) 4,000 unit 1X ONCE IV Last administered on 11/08/18at 16:09; Start 11/08/18 at 16:15; Stop 11/08/18 at 16:16; Status DC Nitroglycerin/ Dextrose 250 ml @ 0 mls/hr 1X ONCE IV Last administered on 11/08/18at 16:41; Start 11/08/18 at 16:15; Stop 11/08/18 at 16:16; Status DC Labetalol HCl (Normodyne Iv Push) 20 mg 1X ONCE IVP Last administered on 11/08/18at 17:41; Start 11/08/18 at 16:15; Stop 11/08/18 at 16:16; Status DC Piperacillin Sod/ Tazobactam Sod 3.375 gm/Sodium Chloride 50 ml @ 100 mls/hr 1X ONCE IV Last administered on 11/08/18at 16:55; Start 11/08/18 at 16:15; Stop 11/08/18 at 16:44; Status DC Nitroglycerin/ Dextrose 250 ml @ 0 mls/hr 1X ONCE IV ; Start 11/08/18 at 16:15; Stop 11/08/18 at 16:16; Status UNV Potassium Chloride (Klor-Con) 40 meq 1X ONCE PO Last administered on 11/08/18at 16:58; Start 11/08/18 at 16:15; Stop 11/08/18 at 16:16; Status DC Magnesium Sulfate/ Dextrose 100 ml @ 25 mls/hr 1X ONCE IV Last administered on 11/08/18at 16:55; Start 11/08/18 at 16:15; Stop 11/08/18 at 20:14; Status DC Sodium Chloride 1,000 ml @ 60 mls/hr 1X ONCE IV Last administered on 11/08/18at 17:47; Start 11/08/18 at 16:15; Stop 11/09/18 at 08:54; Status DC Albuterol Sulfate (Ventolin Neb Soln) 2.5 mg RTQID INH ; Start 11/08/18 at 20 :00; Stop 11/09/18 at 08:27; Status DC Amlodipine Besylate (Norvasc) 5 mg DAILY PO Last administered on 11/10/18 08:47; Start 11/09/18 at 09:00 Ascorbic Acid (Vitamin C) 500 mg BID PO Last administered on 11/10/18 08:45; Start 11/08/18 at 21:00 Atorvastatin Calcium (Lipitor) 10 mg HS PO Last administered on 11/09/18 20:51; Start 11/08/18 at 21:00 Bupropion HCl (Wellbutrin Sr) 150 mg BID PO Last administered on 11/10/18 08:48; Start 11/08/18 at 21:00 Buspirone HCl (Buspar) 15 mg TID PO Last administered on 11/10/18 08:48; Start 11/08/18 at 21:00 Carbamazepine (TEGretol XR) 200 mg QHS PO Last administered on 11/09/18 20:51; Start 11/08/18 at 21:00 Cetirizine HCl (ZyrTEC) 10 mg DAILY PO Last administered on 11/10/18 08:48; Start 11/09/18 at 09:00 Clonazepam (KlonoPIN) 0.5 mg PRN TID PRN PO ANXIETY / AGITATION Last administered on 11/10/18 08:48; Start 11/08/18 at 21:00 Clopidogrel Bisulfate (Plavix) 75 mg DAILY PO Last administered on 11/10/18 08:48; Start 11/09/18 at 09:00 Cyanocobalamin (Vitamin B-12) 1,000 mcg DAILY PO Last administered on 11/10/18 08:47; Start 11/09/18 at 09:00 Diclofenac Sodium (Voltaren) 100 mac QID TP Last administered on 11/10/18 08:49; Start 11/08/18 at 17:00 Albuterol/ Ipratropium (Duoneb) 3 ml TID NEB Last administered on 11/10/18 13:58; Start 11/08/18 at 21:00 Metoprolol Succinate (Toprol Xl) 12.5 mg DAILY PO Last administered on 11/10 08:49; Start 11/09/18 at 09:00 Nortriptyline HCl (Pamelor) 50 mg HS PO Last administered on 11/09/18 20:51; Start 11/08/18 at 21:00 Fish Oil (Fish Oil) 1,000 mg DAILY PO Last administered on 11/10/18 08:45; Start 11/09/18 at 09:00 Sodium Bicarbonate (Sodium Bicarbonate) 650 mg DAILY PO Last administered on 11/10/18 08:46; Start 11/09/18 at 09:00 Vitamin D (Vitamin D3) 1,000 unit DAILY PO Last administered on 11/10/18 08:46; Start 11/09/18 at 09:00 Duloxetine HCl (Cymbalta) 60 mg DAILY PO Last administered on 11/10/18 08:49; Start 11/09/18 at 09:00 Erythromycin (E-Mycin) 125 mg BID PO Last administered on 11/10/18 08:46; Start 11/08/18 at 21:00 Fluticasone Propionate (Flonase) 2 spray DAILY NS Last administered on 11/10/18 08:50; Start 11/09/18 at 09:00 Insulin Human Lispro (HumaLOG) 15 units TIDWMEALS SQ Last administered on 11/10/18 12:33; Start 11/08/18 at 17:00 Insulin Glargine (Lantus) 80 units Q12HR SQ ; Start 11/08/18 at 21:00; Stop 11/08/18 at 21:00; Status DC Lisinopril (Prinivil) 5 mg DAILY PO Last administered on 11/10/18 08:46; Start 11/09/18 at 09:00 Metformin HCl (Glucophage Xr) 1,000 mg BIDWMEALS PO Last administered on 11/10/18 08:28; Start 11/08/18 at 17:00 Mirtazapine (Remeron) 15 mg QHS PO Last administered on 11/09/18 20:51; Start 11/08/18 at 21:00 Multivitamins (Thera M Plus) 1 tab DAILY PO Last administered on 11/10/18 08:47; Start 11/09/18 at 09:00 Pantoprazole Sodium (Protonix) 40 mg DAILYAC PO Last administered on 11/10/18 08:28; Start 11/09/18 at 07:30 Ropinirole HCl (Requip) 1 mg QHS PO Last administered on 11/09/18 20:51; Start 11/08/18 at 21:00 Zonisamide (Zonegran) 100 mg TID PO Last administered on 11/10/18 08:48; Start 11/08/18 at 21:00 Insulin Human Lispro (HumaLOG) 0-9 UNITS TIDWMEALS SQ Last administered on 11/10/18at 12:33; Start 11/08/18 at 17:00 Dextrose (Dextrose 50%-Water Syringe) 12.5 gm PRN Q15MIN PRN IV SEE COMMENTS; Start 11/08/18 at 16:30 Dextrose (Dextrose 50%-Water Syringe) 12.5 gm PRN Q15MIN PRN IV SEE COMMENTS; Start 11/08/18 at 16:30; Status UNV Insulin Glargine (Lantus) 20 units QHS SQ Last administered on 11/09/18at 21:02; Start 11/08/18 at 21:00 Docusate Sodium (Colace) 100 mg DAILY PO Last administered on 11/09/18 08:51; Start 11/09/18 at 09:00 Info (Anti-Coagulation Monitoring By Pharmacy) 1 each PRN DAILY PRN MC SEE COMMENTS Last administered on 11/10/18at 09:43; Start 11/09/18 at 08:00 Docusate Sodium (Colace) 100 mg PRN DAILY PRN PO HARD STOOLS; Start 11/09/18 at 11:00 Polyethylene Glycol (miraLAX PACKET) 17 gm PRN DAILY PRN PO CONSTIPATION; Start 11/09/18 at 11:00 Polyethylene Glycol (miraLAX PACKET) 17 gm 1X ONCE PO Last administered on 11/09/18 11:08; Start 11/09/18 at 11:00; Stop 11/09/18 at 11:02; Status DC Acetaminophen/ Aspirin/Caffeine (Excedrin Migraine) 1 tab PRN Q6HRS PRN PO MIGRAINE HEADACHE Last administered on 11/10/18 11:01; Start 11/09/18 at 20:45 Oxycodone/ Acetaminophen (Percocet 7.5/ 325) 1 tab 1X ONCE PO Last administered on 11/09/18at 21:59; Start 11/09/18 at 22:00; Stop 11/09/18 at 22:01; Status DC Albuterol Sulfate (Ventolin Neb Soln) 2.5 mg PRN Q4HRS PRN NEB SHORTNESS OF BREATH; Start 11/09/18 at 23:15 Lidocaine (Lidoderm) 1 patch DAILY TD Last administered on 11/10/18at 11:38; Start 11/10/18 at 12:00 Miscellaneous (Lidoderm Patch Removal) 1 ea QHS MC ; Start 11/10/18 at 21:00 Cyclobenzaprine HCl (Flexeril) 10 mg PRN Q6HRS PRN PO MUSCLE SPASMS; Start 11/10/18 at 11:30 Oxycodone/ Acetaminophen (Percocet 5/325) 1 tab PRN Q4HRS PRN PO PAIN Last administered on 11/10/18at 12:09; Start 11/10/18 at 11:30 Active Scripts Active Reported Tegretol (Carbamazepine) 200 Mg Tablet 200 Mg PO QHS Metoprolol Succinate ( Xl ) (Metoprolol Succinate) 25 Mg Tab.er.24h 12.5 Mg PO DAILY Klonopin (Clonazepam) 0.5 Mg Tablet 0.5 Mg PO PRN BID PRN Fish Oil 1,000 Mg Capsule ([place]-3 Fatty Acids/Fish Oil) 1 Each Capsule 1 Each PO TID Cymbalta (Duloxetine Hcl) 60 Mg Capsule. 60 Mg PO DAILY Loperamide (Loperamide Hcl) 2 Mg Capsule 2 Mg PO Zyrtec (Cetirizine Hcl) 10 Mg Tablet 1 Tab PO DAILY Zonisamide 100 Mg Capsule 100 Mg PO TID Sodium Bicarbonate 650 Mg Tablet 1 Tab PO DAILY Ranitidine Hcl 150 Mg Tablet 150 Mg PO DAILY Protonix (Pantoprazole Sodium) 20 Mg Tablet.dr 40 Mg PO DAILY Nortriptyline Hcl 25 Mg Capsule 50 Mg PO HS Duoneb 0.5-3(2.5) Mg/3 Ml (Albuterol/Ipratropium) 3 Ml Ampul.neb 3 Ml NEB TID Erythromycin (Erythromycin Base) 250 Mg Capsule.dr 125 Mg PO BID Clopidogrel (Clopidogrel Bisulfate) 75 Mg Tablet 1 Tab PO DAILY Atorvastatin Calcium 10 Mg Tablet 10 Mg PO HS Multivitamins (Multivitamin) 1 Each Tablet 1 Tab PO DAILY Mirtazapine 15 Mg Tablet 30 Mg PO QHS Lisinopril 5 Mg Tablet 1 Tab PO DAILY Vitamin B-12 (Cyanocobalamin (Vitamin B-12)) 1,000 Mcg Tablet 1 Tab PO DAILY Vitamin D (Cholecalciferol (Vitamin D3)) 1,000 Unit Capsule 1 Cap PO DAILY Buspirone Hcl 10 Mg Tablet 15 Mg PO TID Ascorbic Acid 500 Mg Tablet 500 Mg PO BID Amlodipine Besylate 5 Mg Tablet 5 Mg PO DAILY Voltaren (Diclofenac Sodium) 100 Gm Gel..gram. 100 Gm TP QID Levemir Flextouch (Insulin Detemir) 100 Unit/1 Ml Insuln.pen 80 Unit SQ BID Flonase Allergy Relief (Fluticasone Propionate) 9.9 Ml [place].susp 2 Spr NS DAILY Wellbutrin Sr (Bupropion Hcl) 150 Mg Tablet.er 1 Tab PO BID Proair Hfa Inhaler (Albuterol Sulfate) 8.5 Gm Hfa.aer.ad 2 Puff IH QID Aspir 81 (Aspirin) 81 Mg Tablet.dr 81 Mg PO DAILY Metformin Hcl Er (Metformin Hcl) 500 Mg Tab.er.24 1,000 Mg PO BIDAC Ropinirole Hcl 1 Mg Tablet 1 Mg PO QHS Novolog (Insulin Aspart) 100 Unit/1 Ml Cartridge 15 Unit SQ TIDAC Vitals/I & O Vital Sign - Last 24 Hours 11/09/18 11/09/18 11/09/18 11/09/18 15:27 19:00 19:00 20:00 Temp 98.0 98.0 Pulse 85 86 Resp 22 B/P (MAP) 102/60 (74) 109/56 (73) Pulse Ox 98 97 O2 Delivery Room Air Room Air Room Air 11/09/18 11/09/18 11/09/18 11/09/18 20:05 21:59 22:59 23:00 Temp 98.3 98.3 Pulse 103 Resp 20 23 26 B/P (MAP) 115/57 (76) Pulse Ox 98 95 97 95 O2 Delivery Room Air Room Air Room Air Room Air 11/09/18 11/10/18 11/10/18 11/10/18 23:29 03:00 07:00 08:00 Temp 98.5 97.7 98.5 97.7 Pulse 92 84 Resp 24 19 B/P (MAP) 118/63 (81) 117/66 (83) Pulse Ox 95 95 96 O2 Delivery Room Air Room Air Room Air Room Air 11/10/18 11/10/18 11/10/18 11/10/18 08:46 08:47 08:49 08:58 Pulse 92 92 92 B/P (MAP) 117/66 117/66 117/66 Pulse Ox 95 O2 Delivery Room Air 11/10/18 11/10/18 11/10/18 11:00 12:09 13:58 Temp 98.0 98.0 Pulse 100 Resp 25 18 B/P (MAP) 84/46 (59) Pulse Ox 99 97 96 O2 Delivery Room Air Room Air Room Air Intake and Output 11/09/18 11/09/18 11/10/18 15:00 23:00 07:00 Intake Total 1397.41 ml Balance 1397.41 ml BENSON MERA MD Nov 10, 2018 15:08
[2018-11-10] MEDS: CYCLOBENZAPRINE 10 MG TABLET. PO PRN ×2 (17:32→23:36)
[2018-11-10 19:00] VITALS: BP 111/63
[2018-11-10] MEDS: PATCH REMOVAL. MC SCH (21:00)
[2018-11-10] MEDS: MIRTAZAPINE 15 MG TABLET PO SCH (21:14)
[2018-11-10] MEDS: ATORVASTATIN CALCIUM 10 MG TABLET. PO SCH (21:15)
[2018-11-10] MEDS: NORTRIPTYLINE 25 MG CAPSULE PO SCH (21:15)
[2018-11-10] MEDS: rOPINIRole 1 MG TABLET. PO SCH (21:15)
[2018-11-10] MEDS: INSULIN GLARGINE 300 UNITS/3 ML INSULN.PEN. SQ SCH (21:25)
[2018-11-10 23:00] VITALS: BP 110/63
[2018-11-11] VITALS (16 sets, daily range): BP systolic 84–150; BP diastolic 44–84
[2018-11-11] MEDS: HEPARIN 25,000UTS/500ML PREMIX 500 ML IV PRN (05:56)
[2018-11-11] MEDS: INSULIN LISPRO 300 UNITS/3 ML INSULN.PEN. SQ SCH ×6 (08:00→17:08)
[2018-11-11] MEDS: metFORMIN XR 500 MG TAB.ER.24H PO SCH ×2 (08:00→16:19)
[2018-11-11] MEDS ORDERED: LIDOCAINE 1% Multi-Dose 20 ML VIAL. ONE (08:32)
[2018-11-11] MEDS ORDERED: HEPARIN for ARTERIAL LINE 1,500 ML ONE (08:32)
[2018-11-11] MEDS ORDERED: IODIXANOL 320 MG/ML 100 ML VIAL. ONE ×2 (08:32→09:55)
--- NOTE | 2018-11-11 08:50 | NUR ---
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 here with her. Morning dose of metformin and insulin held for NPO status and orders to hold metformin for 48 hours.
[2018-11-11] MEDS ORDERED: MIDAZOLAM HCL/PF 5 MG/5 ML VIAL. ONE (08:56)
[2018-11-11] MEDS ORDERED: fentaNYL PF VIAL 100 MCG/2 ML VIAL ONE (08:56)
[2018-11-11] MEDS: ZONISAMIDE 100 MG CAPSULE. PO SCH ×3 (09:00→22:47)
[2018-11-11] MEDS: IPRATRPIUM/ALBUTEROL 0.5/2.5MG 3 ML NEBU. NEB SCH ×3 (09:00→19:49)
[2018-11-11] MEDS: DICLOFENAC SODIUM 1% TOPICAL GEL 100GM TUBE. TP SCH ×4 (09:00→22:47)
[2018-11-11] MEDS: DOCUSATE SODIUM 100 MG CAPSULE. PO SCH (09:00)
[2018-11-11] MEDS: CLOPIDOGREL BISULFATE 75 MG TABLET PO SCH ×2 (09:00→11:45)
[2018-11-11] MEDS: busPIRone 10 MG TABLET. PO SCH ×3 (09:00→22:45)
[2018-11-11] MEDS ORDERED: LIDOCAINE 1% Multi-Dose 20 ML VIAL. INJ ONE (09:30)
[2018-11-11] MEDS ORDERED: CONTRAST GIVEN. MC PRN (09:30)
[2018-11-11] MEDS ORDERED: MIDAZOLAM HCL/PF 5 MG/5 ML VIAL. IV ONE (09:30)
[2018-11-11] MEDS ORDERED: IODIXANOL 320 MG/ML 100 ML VIAL. IART ONE (09:30)
[2018-11-11] MEDS ORDERED: fentaNYL PF VIAL 100 MCG/2 ML VIAL IV ONE (09:30)
--- NOTE | 2018-11-11 09:32 | NUR ---
IP: Pt is mrsa screen + requiring contact precautions.
[2018-11-11] MEDS ORDERED: BIVALIRUDIN 250 MG VIAL. IV ONE ×2 (09:51→10:15)
[2018-11-11] MEDS ORDERED: NITROGLYCERIN 200 MCG/2 ML SYRINGE FOR CATH/VASC LAB. IART ONE (10:15)
[2018-11-11] MEDS ORDERED: CLOPIDOGREL BISULFATE 75 MG TABLET ONE (10:25)
[2018-11-11] MEDS ORDERED: ASPIRIN 325 MG TABLET ONE (10:25)
[2018-11-11] MEDS ORDERED: CLOPIDOGREL BISULFATE 75 MG TABLET PO ONE (10:30)
[2018-11-11] MEDS ORDERED: ASPIRIN 325 MG TABLET PO ONE (10:30)
--- NOTE | 2018-11-11 10:45 | NUR ---
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 Pedal pulses palpable.
--- NOTE | 2018-11-11 10:54 | PDOC ---
MODERATE SEDATION ASSESSMENT RISKS/ALTERNATIVES Risks/Alternatives Risks and alternatives of this type of sedation and procedure discussed with: RISK/ALTERNATIVES: Patient H & P ON CHART H & P H & P on chart and reviewed for co-morbid conditions and appropriate labs. H&P ON CHART: Yes STATUS PREG STATUS ASSESSED: Yes MEDS/ALLERGIES REVIEWED Meds/Allergies Reviewed Medications and Allergies including time and route of recently administered narcotics and sedatives. MEDS/ALLERGIES REVIEWED: Yes ASA RATING ASA RATING: II AIRWAY ASSESSMENT Airway Assessment Airway patency, oral function limitations, presence of caps, crowns, dentures, partials, and ability to extend neck assessed. AIRWAY ASSESSMENT: Yes MALLAMPATI SCORE MALLAMPATI SCORE: II PRE-SEDATION ASSESSMENT PRE-SEDATION ASSESSMENT: Yes BENSON MERA MD Nov 11, 2018 10:54
[2018-11-11] MEDS ORDERED: IV NORMAL SALINE 1000ML BAG 1,000 ML IV SCH (10:55)
[2018-11-11] MEDS ORDERED: 0.9 % SODIUM CHLORIDE 10 ML DISP.SYRIN. IV PRN (11:00)
[2018-11-11] MEDS ORDERED: ATROPINE 0.5 MG/5 ML DISP.SYRINGE. IV PRN (11:00)
[2018-11-11] MEDS ORDERED: fentaNYL PF VIAL 100 MCG/2 ML VIAL IV PRN (11:00)
[2018-11-11] MEDS ORDERED: LIDOCAINE 2% 100 MG/5 ML SYRINGE. IV PRN (11:00)
[2018-11-11] MEDS ORDERED: NITROGLYCERIN SUBLINGUAL 0.4 MG BOTTLE OF 25. SL PRN (11:00)
[2018-11-11] MEDS ORDERED: ACETAMINOPHEN 325 MG TABLET. PO PRN (11:00)
[2018-11-11] MEDS ORDERED: AMIODARONE 150 MG in IV DEXTROSE 5% 100ML 100 ML IV PRN (11:00)
[2018-11-11] MEDS: CETIRIZINE HCL 10 MG TABLET. PO SCH (11:04)
[2018-11-11] MEDS: amLODIPine BESYLATE 5 MG TABLET PO SCH (11:04)
[2018-11-11] MEDS: OMEGA-3 FATTY ACIDS/FISH OIL 1,000 MG CAPSULE. PO SCH (11:04)
[2018-11-11] MEDS: METOPROLOL SUCC 24HR ER 25 MG TAB.ER.24H. PO SCH (11:04)
[2018-11-11] MEDS: ASCORBIC ACID 500 MG TABLET PO SCH ×2 (11:05→22:48)
[2018-11-11] MEDS: MULTIVITAMIN with MINERAL TABLET. PO SCH (11:05)
[2018-11-11] MEDS: ERYTHROMYCIN BASE 250 MG TABLET PO SCH ×2 (11:05→22:46)
[2018-11-11] MEDS: buPROPion SR 150 MG TABLET.SA PO SCH ×2 (11:05→22:47)
[2018-11-11] MEDS: LISINOPRIL 5 MG TABLET. PO SCH (11:05)
[2018-11-11] MEDS: SODIUM BICARBONATE 650 MG TABLET. PO SCH (11:05)
[2018-11-11] MEDS: CHOLECALCIFEROL (VITAMIN D3) 1,000 UNIT TABLET PO SCH (11:05)
[2018-11-11] MEDS: CYANOCOBALAMIN (VITAMIN B-12) 1,000 MCG TABLET. PO SCH (11:05)
[2018-11-11] MEDS: PANTOPRAZOLE 40 MG TABLET.DR. PO SCH (11:05)
[2018-11-11] MEDS: clonazePAM 0.5 MG TABLET PO PRN (11:05)
[2018-11-11] MEDS: LIDOCAINE (700MG/PATCH) PATCH. TD SCH (11:06)
[2018-11-11] MEDS: DULoxetine HCL 30 MG CAPSULE.DR PO SCH (11:06)
[2018-11-11] MEDS: FLUTICASONE 50MCG/NASAL SPRAY 16GM BOTTLE. NS SCH (11:06)
--- NOTE | 2018-11-11 11:29 | EKG ---
[facility] [address] [place] [address] Test Date: 2018-11-11 Test Time: 11:20:07 Pat Name: ALDA CORRAL Department: Room: 108 1 Gender: F [employer] Worker: : 1945 Requested By: BENSON MERA Order Number: [id number] Reading MD: Measurements Intervals [place] Rate: 79 P: 41 WV: 184 QRS: -17 QRSD: 74 T: 111 QT: 396 QTc: 455 Interpretive Statements SINUS RHYTHM LEFTWARD AXIS CONSIDER LEFT VENTRICULAR HYPERTROPHY QRS(T) CONTOUR ABNORMALITY CONSIDER ANTEROSEPTAL MYOCARDIAL DAMAGE CONSISTENT WITH INFERIOR INFARCT PROBABLY OLD ST & T ABNORMALITY, CONSIDER HIGH LATERAL ISCHEMIA OR LEFT VENTRICULAR STRAIN ABNORMAL ECG RI6.01 Unconfirmed report Compared to ECG 12/15/2017 10:26:33 Left-axis deviation now present Myocardial infarct finding now present T-wave abnormality now present Possible ischemia now present
[2018-11-11] MEDS: oxyCODONE/APAP 5/325 1 TAB TABLET PO PRN ×2 (11:36→17:04)
--- NOTE | 2018-11-11 14:43 | PDOC ---
PROGRESS NOTES Chief Complaint Chief Complaint 1. NSTEMI, trop peak 25, better 2. CAD: see 2018 [facility] 3. Accelerated HTN 4. HLP 5. Nontraumatic mechanical fall: Sunday. 6. Obesity - BMI 32 7. Hypokalmeia 8. DM 2 on insulin 9. 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 better plan cardiac cath per CV note, I have reconciled all home meds except asa but did cont plavix (since on heparin gtt) Polypharmacy Check A1c Sliding scale insulin high-dose Colace stool softener to avoid straining Vitals Vitals Vital Signs Date Time Temp Pulse Resp B/P (MAP) Pulse Ox O2 Delivery O2 Flow Rate FiO2 11/11/18 14:00 74 21 91/52 (65) 95 Room Air 11/11/18 11:00 98.3 98.3 11/11/18 10:35 2.0 Physical Exam General: Alert, Cooperative, No acute distress Heart: Regular rate Lungs: Clear Abdomen: Normal bowel sounds Extremities: No clubbing, No cyanosis, No edema, Normal pulses, No tenderness/swelling Skin: No rashes, No breakdown, No significant lesion Labs LABS Laboratory Tests Test 11/10/18 17:23 11/10/18 21:23 11/11/18 04:00 11/11/18 11:34 Glucose (Fingerstick) 124 mg/dL (70-99) 267 mg/dL (70-99) 134 mg/dL (70-99) Heparin Anti-Xa Act, Unfractionated 0.36 IU/mL (0.30-0.70) Assessment and Plan Assessmemt and Plan Problems Medical Problems: (1) Congestive heart failure Status: Acute (2) Hypokalemia Status: Acute (3) Hypomagnesemia Status: Acute (4) NSTEMI (non-ST elevated myocardial infarction) Status: Acute (5) Renal insufficiency Status: Acute (6) Severe sepsis Status: Acute (7) Uncontrolled diabetes mellitus Status: Acute Comment Review of Relevant I have reviewed the following items danisha (where applicable) has been applied. Labs Laboratory Tests Test 11/09/18 17:52 11/09/18 18:40 11/09/18 21:00 11/10/18 01:00 Glucose (Fingerstick) 124 mg/dL (70-99) 302 mg/dL (70-99) Heparin Anti-Xa Act, Unfractionated 0.50 IU/mL (0.30-0.70) 0.36 IU/mL (0.30-0.70) Test 11/10/18 07:10 11/10/18 08:25 11/10/18 11:42 11/10/18 17:23 Heparin Anti-Xa Act, Unfractionated 0.39 IU/mL (0.30-0.70) Glucose (Fingerstick) 160 mg/dL (70-99) 202 mg/dL (70-99) 124 mg/dL (70-99) Test 11/10/18 21:23 11/11/18 04:00 11/11/18 11:34 Glucose (Fingerstick) 267 mg/dL (70-99) 134 mg/dL (70-99) Heparin Anti-Xa Act, Unfractionated 0.36 IU/mL (0.30-0.70) Laboratory Tests Test 11/10/18 17:23 11/10/18 21:23 11/11/18 04:00 11/11/18 11:34 Glucose (Fingerstick) 124 mg/dL (70-99) 267 mg/dL (70-99) 134 mg/dL (70-99) Heparin Anti-Xa Act, Unfractionated 0.36 IU/mL (0.30-0.70) Microbiology 11/08/18 Blood Culture - Preliminary, Resulted NO GROWTH AFTER 2 DAYS Medications Current Medications Heparin Sodium/ Dextrose 500 ml @ 0 mls/hr CONT PRN IV SEE I/O RECORD Last a dministered on 11/10/18at 01:08; Start 11/08/18 at 16:00; Stop 11/11/18 at 10:56; Status DC Heparin Sodium (Porcine) (Heparin Sodium) 1,650 unit PRN Q6HRS PRN IV FOR UFH LEVEL LESS THAN 0.2 Last administered on 11/09/18at 08:15; Start 11/08/18 at 16:00; Stop 11/11/18 at 10:56; Status DC Heparin Sodium (Porcine) (Heparin Sodium) 4,000 unit 1X ONCE IV Last administered on 11/08/18at 16:09; Start 11/08/18 at 16:15; Stop 11/08/18 at 16:16; Status DC Nitroglycerin/ Dextrose 250 ml @ 0 mls/hr 1X ONCE IV Last administered on 11/08/18at 16:41; Start 11/08/18 at 16:15; Stop 11/08/18 at 16:16; Status DC Labetalol HCl (Normodyne Iv Push) 20 mg 1X ONCE IVP Last administered on 11/08/18at 17:41; Start 11/08/18 at 16:15; Stop 11/08/18 at 16:16; Status DC Piperacillin Sod/ Tazobactam Sod 3.375 gm/Sodium Chloride 50 ml @ 100 mls/hr 1X ONCE IV Last administered on 11/08/18at 16:55; Start 11/08/18 at 16:15; Stop 11/08/18 at 16:44; Status DC Nitroglycerin/ Dextrose 250 ml @ 0 mls/hr 1X ONCE IV ; Start 11/08/18 at 16:15; Stop 11/08/18 at 16:16; Status UNV Potassium Chloride (Klor-Con) 40 meq 1X ONCE PO Last administered on 11/08/18at 16:58; Start 11/08/18 at 16:15; Stop 11/08/18 at 16:16; Status DC Magnesium Sulfate/ Dextrose 100 ml @ 25 mls/hr 1X ONCE IV Last administered on 11/08/18at 16:55; Start 11/08/18 at 16:15; Stop 11/08/18 at 20:14; Status DC Sodium Chloride 1,000 ml @ 60 mls/hr 1X ONCE IV Last administered on 11/08/18at 17:47; Start 11/08/18 at 16:15; Stop 11/09/18 at 08:54; Status DC Albuterol Sulfate (Ventolin Neb Soln) 2.5 mg RTQID INH ; Start 11/08/18 at 20:00; Stop 11/09/18 at 08:27; Status DC Amlodipine Besylate (Norvasc) 5 mg DAILY PO Last administered on 11/11/18at 11:04; Start 11/09/18 at 09:00 Ascorbic Acid (Vitamin C) 500 mg BID PO Last administered on 11/11/18at 11:05; Start 11/08/18 at 21:00 Atorvastatin Calcium (Lipitor) 10 mg HS PO Last administered on 11/10/18 21:15; Start 11/08/18 at 21:00 Bupropion HCl (Wellbutrin Sr) 150 mg BID PO Last administered on 11/11/18 11:05; Start 11/08/18 at 21:00 Buspirone HCl (Buspar) 15 mg TID PO Last administered on 11/10/18 21:15; Start 11/08/18 at 21:00 Carbamazepine (TEGretol XR) 200 mg QHS PO Last administered on 11/10/18 21:15; Start 11/08/18 at 21:00 Cetirizine HCl (ZyrTEC) 10 mg DAILY PO Last administered on 11/11/18 11:04; Start 11/09/18 at 09:00 Clonazepam (KlonoPIN) 0.5 mg PRN TID PRN PO ANXIETY / AGITATION Last administered on 11/11/18 11:05; Start 11/08/18 at 21:00 Clopidogrel Bisulfate (Plavix) 75 mg DAILY PO Last administered on 11/10/18at 08:48; Start 11/09/18 at 09:00 Cyanocobalamin (Vitamin B-12) 1,000 mcg DAILY PO Last administered on 11/11/18 11:05; Start 11/09/18 at 09:00 Diclofenac Sodium (Voltaren) 100 mac QID TP Last administered on 11/10/18 21:16; Start 11/08/18 at 17:00 Albuterol/ Ipratropium (Duoneb) 3 ml TID NEB Last administered on 11/10/18 20:02; Start 11/08/18 at 21:00 Metoprolol Succinate (Toprol Xl) 12.5 mg DAILY PO Last administered on 11/11/18 11:04; Start 11/09/18 at 09:00 Nortriptyline HCl (Pamelor) 50 mg HS PO Last administered on 11/10/18 21:15; Start 11/08/18 at 21:00 Fish Oil (Fish Oil) 1,000 mg DAILY PO Last administered on 11/11/18 11:04; Start 11/09/18 at 09:00 Sodium Bicarbonate (Sodium Bicarbonate) 650 mg DAILY PO Last administered on 11/11/18 11:05; Start 11/09/18 at 09:00 Vitamin D (Vitamin D3) 1,000 unit DAILY PO Last administered on 11/11/18 11:05; Start 11/09/18 at 09:00 Duloxetine HCl (Cymbalta) 60 mg DAILY PO Last administered on 11/11/18 11:06; Start 11/09/18 at 09:00 Erythromycin (E-Mycin) 125 mg BID PO Last administered on 11/11/18 11:05; Start 11/08/18 at 21:00 Fluticasone Propionate (Flonase) 2 spray DAILY NS Last administered on 11/11/18 11:06; Start 11/09/18 at 09:00 Insulin Human Lispro (HumaLOG) 15 units TIDWMEALS SQ Last administered on 11/10/18at 12:33; Start 11/08/18 at 17:00 Insulin Glargine (Lantus) 80 units Q12HR SQ ; Start 11/08/18 at 21:00; Stop 11/08/18 at 21:00; Status DC Lisinopril (Prinivil) 5 mg DAILY PO Last administered on 11/11/18 11:05; Start 11/09/18 at 09:00 Metformin HCl (Glucophage Xr) 1,000 mg BIDWMEALS PO Last administered on 11/10/18 17:24; Start 11/08/18 at 17:00 Mirtazapine (Remeron) 15 mg QHS PO Last administered on 11/10/18 21:14; Start 11/08/18 at 21:00 Multivitamins (Thera M Plus) 1 tab DAILY PO Last administered on 11/11/18 11:05; Start 11/09/18 at 09:00 Pantoprazole Sodium (Protonix) 40 mg DAILYAC PO Last administered on 11/11/18 11:05; Start 11/09/18 at 07:30 Ropinirole HCl (Requip) 1 mg QHS PO Last administered on 11/10/18 21:15; Start 11/08/18 at 21:00 Zonisamide (Zonegran) 100 mg TID PO Last administered on 11/10/18 21:14; Start 11/08/18 at 21:00 Insulin Human Lispro (HumaLOG) 0-9 UNITS TIDWMEALS SQ Last administered on 11/10/18at 12:33; Start 11/08/18 at 17:00 Dextrose (Dextrose 50%-Water Syringe) 12.5 gm PRN Q15MIN PRN IV SEE COMMENTS; Start 11/08/18 at 16:30 Dextrose (Dextrose 50%-Water Syringe) 12.5 gm PRN Q15MIN PRN IV SEE COMMENTS; Start 11/08/18 at 16:30; Status UNV Insulin Glargine (Lantus) 20 units QHS SQ Last administered on 11/10/18at 21:25; Start 11/08/18 at 21:00 Docusate Sodium (Colace) 100 mg DAILY PO Last administered on 11/09/18at 08:51; Start 11/09/18 at 09:00 Info (Anti-Coagulation Monitoring By Pharmacy) 1 each PRN DAILY PRN MC SEE COMMENTS Last administered on 11/10/18at 09:43; Start 11/09/18 at 08:00 Docusate Sodium (Colace) 100 mg PRN DAILY PRN PO HARD STOOLS; Start 11/09/18 at 11:00 Polyethylene Glycol (miraLAX PACKET) 17 gm PRN DAILY PRN PO CONSTIPATION; Start 11/09/18 at 11:00 Polyethylene Glycol (miraLAX PACKET) 17 gm 1X ONCE PO Last administered on 11/09/18at 11:08; Start 11/09/18 at 11:00; Stop 11/09/18 at 11:02; Status DC Acetaminophen/ Aspirin/Caffeine (Excedrin Migraine) 1 tab PRN Q6HRS PRN PO MIGRAINE HEADACHE Last administered on 11/10/18at 11:01; Start 11/09/18 at 20:45 Oxycodone/ Acetaminophen (Percocet 7.5/ 325) 1 tab 1X ONCE PO Last administered on 11/09/18at 21:59; Start 11/09/18 at 22:00; Stop 11/09/18 at 22:01; Status DC Albuterol Sulfate (Ventolin Neb Soln) 2.5 mg PRN Q4HRS PRN NEB SHORTNESS OF BREATH; Start 11/09/18 at 23:15 Lidocaine (Lidoderm) 1 patch DAILY TD Last administered on 11/11/18at 11:06; Start 11/10/18 at 12:00 Miscellaneous (Lidoderm Patch Removal) 1 ea QHS MC Last administered on 11/10/18at 21:00; Start 11/10/18 at 21:00 Cyclobenzaprine HCl (Flexeril) 10 mg PRN Q6HRS PRN PO MUSCLE SPASMS Last administered on 11/10/18at 23:36; Start 11/10/18 at 11:30 Oxycodone/ Acetaminophen (Percocet 5/325) 1 tab PRN Q4HRS PRN PO PAIN Last administered on 11/11/18at 11:36; Start 11/10/18 at 11:30 Sodium Chloride 1,000 ml @ 60 mls/hr [id number] IV ; Start 11/11/18 at 08:00 Iodixanol (Visipaque 320) 100 ml STK-MED ONCE .ROUTE ; Start 11/11/18 at 08:32; Stop 11/11/18 at 08:33; Status DC Lidocaine HCl (Lidocaine 1% 20ml Vial) 20 ml STK-MED ONCE .ROUTE ; Start 11/11/18 at 08:32; Stop 11/11/18 at 08:33; Status DC Heparin Sodium/ Sodium Chloride 1,500 ml @ As Directed STK-MED ONCE .ROUTE ; Start 11/11/18 at 08:32; Stop 11/11/18 at 08:33; Status DC Fentanyl Citrate (Fentanyl 2ml Vial) 100 mcg STK-MED ONCE .ROUTE ; Start 11/11/18 at 08:56; Stop 11/11/18 at 08:57; Status DC Midazolam HCl (Versed) 5 mg STK-MED ONCE .ROUTE ; Start 11/11/18 at 08:56; Stop 11/11/18 at 08:57; Status DC Heparin Sodium/ Sodium Chloride (HEPARIN for ARTERIAL LINE FLUSH) 1,000 unit 1X ONCE IART Last administered on 11/11/18at 10:34; Start 11/11/18 at 09:30; Stop 11/11/18 at 09:31; Status DC Heparin Sodium/ Sodium Chloride (HEPARIN for ARTERIAL LINE FLUSH) 1,000 unit 1X ONCE IART Last administered on 11/11/18at 10:34; Start 11/11/18 at 09:30; Stop 11/11/18 at 09:31; Status DC Midazolam HCl (Versed) 5 mg 1X ONCE IV Last administered on 11/11/18 10:35; Start 11/11/18 at 09:30; Stop 11/11/18 at 09:31; Status DC Fentanyl Citrate (Fentanyl 2ml Vial) 100 mcg 1X ONCE IV Last administered on 11/11/18 10:35; Start 11/11/18 at 09:30; Stop 11/11/18 at 09:31; Status DC Iodixanol (Visipaque 320) 100 ml 1X ONCE IART Last administered on 11/11/18 10:33; Start 11/11/18 at 09:30; Stop 11/11/18 at 09:31; Status DC Lidocaine HCl (Lidocaine 1% 20ml Vial) 20 ml 1X ONCE INJ Last administered on 11/11/18 10:33; Start 11/11/18 at 09:30; Stop 11/11/18 at 09:31; Status DC Info (CONTRAST GIVEN -- Rx MONITORING) 1 each PRN DAILY PRN MC SEE COMMENTS; Start 11/11/18 at 09:30; Stop 11/13/18 at 09:29 Bivalirudin (Angiomax) 250 mg STK-MED ONCE IV ; Start 11/11/18 at 09:51; Stop 11/11/18 at 09:52; Status DC Iodixanol (Visipaque 320) 100 ml STK-MED ONCE .ROUTE ; Start 11/11/18 at 09:55; Stop 11/11/18 at 09:56; Status DC Nitroglycerin (Nitroglycerin) 200 mcg 1X ONCE IART Last administered on 11/11/18at 10:35; Start 11/11/18 at 10:15; Stop 11/11/18 at 10:16; Status DC Bivalirudin (Angiomax) 250 mg 1X ONCE IV Last administered on 11/11/18 10:36; Start 11/11/18 at 10:15; Stop 11/11/18 at 10:16; Status DC Clopidogrel Bisulfate (Plavix) 300 mg 1X ONCE PO Last administered on 11/11/18 10:35; Start 11/11/18 at 10:30; Stop 11/11/18 at 10:31; Status DC Aspirin (Juju Aspirin) 325 mg 1X ONCE PO Last administered on 11/11/18 10:35 ; Start 11/11/18 at 10:30; Stop 11/11/18 at 10:31; Status DC Aspirin (Juju Aspirin) 325 mg DAILYWBKFT PO ; Start 11/12/18 at 08:00; Stop 11/12/18 at 08:00; Status DC Clopidogrel Bisulfate (Plavix) 75 mg STK-MED ONCE .ROUTE ; Start 11/11/18 at 10:25; Stop 11/11/18 at 10:26; Status DC Aspirin (Juju Aspirin) 325 mg STK-MED ONCE .ROUTE ; Start 11/11/18 at 10:25; Stop 11/11/18 at 10:26; Status DC Sodium Chloride (Normal Saline Flush) 3 ml QSHIFT PRN IV AFTER MEDS AND BLOOD DRAWS; Start 11/11/18 at 11:00 Sodium Chloride 1,000 ml @ 60 mls/hr [id number] IV Last administered on 11/11/18at 11:11; Start 11/11/18 at 10:55; Stop 11/11/18 at 14:54 Aspirin (Ecotrin) 325 mg DAILYWBKFT PO ; Start 11/12/18 at 08:00 Clopidogrel Bisulfate (Plavix) 75 mg DAILYWBKFT PO ; Start 11/11/18 at 12:00 Acetaminophen (Tylenol) 650 mg PRN Q6HRS PRN PO MILD PAIN / TEMP; Start 11/11/18 at 11:00 Fentanyl Citrate (Fentanyl 2ml Vial) 50 mcg PRN Q1HR PRN IV MODERATE OR SEVERE PAIN; Start 11/11/18 at 11:00 Nitroglycerin (Nitrostat) 0.4 mg PRN Q5MIN PRN SL CHEST PAIN; Start 11/11/18 at 11:00 Amiodarone HCl 150 mg/Dextrose 103 ml @ 600 mls/hr 1X PRN PRN IV FOR V TA CHYCARDIA 1ST CHOICE; Start 11/11/18 at 11:00 Lidocaine HCl (Lidocaine HCl 2% Abboject) 100 mg 1X PRN PRN IV FOR V TACHYCARDIA 2ND CHOICE; Start 11/11/18 at 11:00 Atropine Sulfate (ATROPINE 0.5mg SYRINGE) 0.5 mg PRN 1X PRN IV BRADYCARDIA; Start 11/11/18 at 11:00 Active Scripts Active Reported Tegretol (Carbamazepine) 200 Mg Tablet 200 Mg PO QHS Metoprolol Succinate ( Xl ) (Metoprolol Succinate) 25 Mg Tab.er.24h 12.5 Mg PO DAILY Klonopin (Clonazepam) 0.5 Mg Tablet 0.5 Mg PO PRN BID PRN Fish Oil 1,000 Mg Capsule ([place]-3 Fatty Acids/Fish Oil) 1 Each Capsule 1 Each PO TID Cymbalta (Duloxetine Hcl) 60 Mg Capsule. 60 Mg PO DAILY Loperamide (Loperamide Hcl) 2 Mg Capsule 2 Mg PO Zyrtec (Cetirizine Hcl) 10 Mg Tablet 1 Tab PO DAILY Zonisamide 100 Mg Capsule 100 Mg PO TID Sodium Bicarbonate 650 Mg Tablet 1 Tab PO DAILY Ranitidine Hcl 150 Mg Tablet 150 Mg PO DAILY Protonix (Pantoprazole Sodium) 20 Mg Tablet.dr 40 Mg PO DAILY Nortriptyline Hcl 25 Mg Capsule 50 Mg PO HS Duoneb 0.5-3(2.5) Mg/3 Ml (Albuterol/Ipratropium) 3 Ml Ampul.neb 3 Ml NEB TID Erythromycin (Erythromycin Base) 250 Mg Capsule.dr 125 Mg PO BID Clopidogrel (Clopidogrel Bisulfate) 75 Mg Tablet 1 Tab PO DAILY Atorvastatin Calcium 10 Mg Tablet 10 Mg PO HS Multivitamins (Multivitamin) 1 Each Tablet 1 Tab PO DAILY Mirtazapine 15 Mg Tablet 30 Mg PO QHS Lisinopril 5 Mg Tablet 1 Tab PO DAILY Vitamin B-12 (Cyanocobalamin (Vitamin B-12)) 1,000 Mcg Tablet 1 Tab PO DAILY Vitamin D (Cholecalciferol (Vitamin D3)) 1,000 Unit Capsule 1 Cap PO DAILY Buspirone Hcl 10 Mg Tablet 15 Mg PO TID Ascorbic Acid 500 Mg Tablet 500 Mg PO BID Amlodipine Besylate 5 Mg Tablet 5 Mg PO DAILY Voltaren (Diclofenac Sodium) 100 Gm Gel..gram. 100 Gm TP QID Levemir Flextouch (Insulin Detemir) 100 Unit/1 Ml Insuln.pen 80 Unit SQ BID Flonase Allergy Relief (Fluticasone Propionate) 9.9 Ml [place].susp 2 Spr NS DAILY Wellbutrin Sr (Bupropion Hcl) 150 Mg Tablet.er 1 Tab PO BID Proair Hfa Inhaler (Albuterol Sulfate) 8.5 Gm Hfa.aer.ad 2 Puff IH QID Aspir 81 (Aspirin) 81 Mg Tablet. 81 Mg PO DAILY Metformin Hcl Er (Metformin Hcl) 500 Mg Tab.er.24 1,000 Mg PO BIDAC Ropinirole Hcl 1 Mg Tablet 1 Mg PO QHS Novolog (Insulin Aspart) 100 Unit/1 Ml Cartridge 15 Unit SQ TIDAC Vitals/I & O Vital Sign - Last 24 Hours 11/10/18 11/10/18 11/10/18 11/10/18 15:00 19:00 20:00 20:02 Temp 98.6 98.6 98.6 98.6 Pulse 84 90 Resp 20 24 B/P (MAP) 98/54 (69) 111/63 (79) Pulse Ox 96 98 99 O2 Delivery Room Air Room Air Room Air Room Air 11/10/18 11/10/18 11/10/18 11/11/18 21:14 22:14 23:00 03:00 Temp 98.7 98.5 98.7 98.5 Pulse 97 93 Resp B/P (MAP) 110/63 (79) 150/81 (104) Pulse Ox 97 98 97 95 O2 Delivery Room Air Room Air Room Air Room Air 11/11/18 11/11/18 11/11/18 11/11/18 07:00 08:00 10:35 10:39 Temp 98.2 98.2 Pulse 91 78 Resp 20 B/P (MAP) 99/60 (73) Pulse Ox 96 96 96 O2 Delivery Room Air Room Air Nasal Cannula Room Air O2 Flow Rate 2.0 11/11/18 11/11/18 11/11/18 11/11/18 10:45 11:00 11:04 11:04 Temp 98.3 98.3 Pulse 78 78 80 80 Resp 29 B/P (MAP) 122/84 (97) 128/72 (90) 128/72 128/72 Pulse Ox 94 92 O2 Delivery Room Air Room Air 11/11/18 11/11/18 11/11/18 11/11/18 11:05 11:15 11:30 11:36 Pulse 80 78 78 Resp 24 B/P (MAP) 128/72 119/60 (79) 115/53 (73) Pulse Ox 94 97 94 O2 Delivery Room Air Room Air Room Air 11/11/18 11/11/18 11/11/18 11/11/18 12:00 12:30 13:00 14:00 Pulse 78 75 76 74 Resp 18 18 19 21 B/P (MAP) 118/56 (76) 84/46 (59) 93/44 (60) 91/52 (65) Pulse Ox 95 94 96 95 O2 Delivery Room Air Room Air Room Air Room Air Intake and Output 11/10/18 11/10/18 11/11/18 14:59 22:59 06:59 Intake Total 600 ml 930 ml 661.83 ml Balance 600 ml 930 ml 661.83 ml TANNER COMER MD Nov 11, 2018 14:43
[2018-11-11] MEDS: IV NORMAL SALINE 1000ML BAG 1,000 ML IV SCH (15:15)
--- NOTE | 2018-11-11 15:29 | NUR ---
SS following for discharge planning. SS reviewed pt chart. Pt is from home with spouse and is currently on room air. No discharge needs noted at this time. SS will continue to follow for discharge planning.
[2018-11-11] MEDS ORDERED: BISACODYL 10 MG SUPP.RECT. PR PRN (16:45)
[2018-11-11] MEDS ORDERED: BISACODYL 5 MG TABLET.DR. PO PRN (16:45)
--- NOTE | 2018-11-11 17:31 | CARD ---
MR#: [id number] Date of Study: 11/11/2018 Ordering Physician: BENSON JAIME, Referring Physician: WALDEMAR COE Tech: Adelita Gann, RT (R) APPROVED REPORT Procedures Left heart catheterization Selective coronary angiogram Balloon angioplasty of a restenotic LAD stent. The patient is a 73-year-old female who presented to the ER with several days of chest pain. Patient' s pain resolved with nitroglycerin and heparin. Initial troponin was the mid 20s but then fell over t he following 16 hours to 7. She remained pain-free since initial treatment. She has a history of heav matthias calcified coronary vessels with previously placed stents to the proximal and distal LAD. In this setting a catheterization was recommended. Risks and benefits were discussed with the patient. She agreed to proceed. After informed consent was obtained the patient was brought to the heart catheterization lab. The are a of the right femoral artery was prepared in the usual manner with Betadine, sterile draping and loc al anesthetic. An 18-gauge needle was used to enter the right femoral artery, a wire placed and a 6 F rench sheath placed over the wire. Using a J-wire for exchanges a 6 [place] right diagnostic catheter was used to engage the right coronary artery and sequential injections in various views wer e obtained. A 6 [place] JL4 diagnostic catheter was used to engage the left coronary system and sequen tial injections in various views were obtained. A pigtail catheter was advanced to the ascending aort a and then the left ventricle. Pressures were obtained but no LV gram was performed. Pullback pressur es were measured. In review of the patient's images the finding was restenosis in the previously plac ed proximal LAD stent of greater than 90% with distal slow flow. We proceeded to revascularize this v essel. Angiomax as per protocol was administered. A 6 [place] extra-support 3.5 guiding catheter was used to engage the left coronary system. A PT choice wire was used to cross the LAD lesion. A 3.0 x 15 noncom pliant Euphora balloon was used for total of 4 inflations with a maximum pressure of 16 madeleine and a max imum time at 20 seconds in the area of the restenotic stent. This improved distal flow significantly and residual lesion in the stent was less than 10%. After final injections, the wire and guiding syst em were removed from the patient. Injection of the sheath showed normal placement. The sheath was rem scarlett and sealed with an Angio-Seal product. The patient was moved to the holding area. Findings. Hemodynamics. LV pressure 110/16, 26. Aortic root pressure of 180/60. Coronaries. Left main. The left main had no lesions. Left anterior descending. The LAD was a moderate size heavily calcified vessel. It a proximal stent w ith a greater than 90% area of restenosis. Left circumflex. Left circumflex was a moderate size dominant vessel. It had a mid 40-50% lesion. Obt use marginal 1 had a distal 70% lesion and a branch vessel with 75-80% lesion. Right coronary artery. The right coronary was a smaller nondominant vessel. It had a proximal 50-60% lesion which was unchanged from previous angiograms. It also had diffuse distal small vessel disease with collateralization from the left system. <Conclusion> Severe restenosis of a proximal LAD stent. Diffuse moderate disease in the left circumflex and right coronary systems as above. Successful balloon angioplasty of the restenotic LAD stent decreasing the lesion to less than 10%. Elevated LVEDP. Signed by : Benson Jaime MD Electronically Approved : 11/11/2018 17:30:43
[2018-11-11] MEDS: PATCH REMOVAL. MC SCH (21:00)
[2018-11-11] MEDS: ATORVASTATIN CALCIUM 10 MG TABLET. PO SCH (22:46)
[2018-11-11] MEDS: NORTRIPTYLINE 25 MG CAPSULE PO SCH (22:46)
[2018-11-11] MEDS: MIRTAZAPINE 15 MG TABLET PO SCH (22:47)
[2018-11-11] MEDS: CYCLOBENZAPRINE 10 MG TABLET. PO PRN (22:53)
[2018-11-11] MEDS: rOPINIRole 1 MG TABLET. PO SCH (23:04)
[2018-11-11] MEDS: INSULIN GLARGINE 300 UNITS/3 ML INSULN.PEN. SQ SCH (23:10)
[2018-11-12] MEDS: IV NORMAL SALINE 1000ML BAG 1,000 ML IV SCH ×2 (00:40→17:20)
[2018-11-12 03:20] VITALS: BP 94/52
--- NOTE | 2018-11-12 05:32 | CONS ---
DATE OF CONSULTATION: 11/11/2018 ATTENDING PHYSICIAN: Claudette Shah MD The patient was seen at the request of Dr. Archer for rehab evaluation. HISTORY OF PRESENT ILLNESS: This is a 73-year-old right-handed female admitted on 11/08/2018 with chest pain. The patient with known hypertension; coronary artery disease; diabetes mellitus, on insulin; developed chest pain, some relief by nitroglycerin without any diaphoresis, lasted for minutes to hours, intermittent for about 3 days. Initially called in ST-segment elevated myocardial infarction, but did not prove to be the case. Troponin being 29. She was started on heparin and nitro drip. The patient was also found with mild hypokalemia. The patient with also known hyperlipidemia, pulmonary hypertension, chronic obstructive pulmonary disease, anemia, diverticulosis with chronic constipation, status post appendectomy, cholecystectomy, tonsillectomy, hysterectomy. FAMILY HISTORY: Coronary artery disease with her mother. ALLERGIES: THE PATIENT IS KNOWN ALLERGIC TO GRAPEFRUIT, HYDROMORPHONE, METOCLOPRAMIDE, MORPHINE, PHENYTOIN, TEMAZEPAM, TRAZODONE, AND ZOLPIDEM. The patient lives with her in [facility]. The patient admits left shoulder blade area pain going on for about 2 weeks without any specific injuries. She denies any radiation of pain to the upper extremities or any numbness, tingling sensation in her upper extremities. She admits some arthritic changes in her right middle finger area. The patient had a cardiac catheterization this morning. I came to see her couple of times in the morning and afternoon, but she is on bed rest. PHYSICAL EXAMINATION: Today revealed an elderly female. She is alert, oriented to time, place, person and circumstance and follows commands appropriately, moves all 4 extremities voluntarily where she had 4+/5 grade muscle strength and deep tendon reflexes are decreased overall. She had equal perception of touch and pinprick sensation bilaterally. She had painful range of motion of her cervical spine and tenderness to palpation over left cervical paraspinal muscles extending over to the left posterior shoulder girdle muscles. The patient had no significant pain on range of motion of her shoulders or cervical spine. She is independent with bed mobility. I have not tested her transfers or ambulation skills at this time. ASSESSMENT: An elderly female with subacute cervical sprain with associated left cervical and posterior shoulder girdle muscle strain. No clinical evidence of ongoing cervical radiculopathy. The patient with known coronary artery disease, hypertension, congestive heart failure, diabetes mellitus, hyperlipidemia, chronic obstructive pulmonary disease. RECOMMENDATIONS: I have reviewed with her a home program of physical modalities, trigger point massage and relax stretching exercise to her neck and shoulder girdle muscles. To ask physical therapy to see her while she is here. To consider outpatient physical therapy if she feels comfortable. Home when medically stable with outpatient followup. Dr. Archer, I appreciate asking me to participate in the care of this interesting patient. I will be glad to follow her with you as needed for her rehabilitation. CRISTOFER CLEMENS MD DR: RICHMOND/sarmad JOB#: [id number] / [id number]
--- NOTE | 2018-11-12 06:27 | EKG ---
[facility] [address] [place] [address] Test Date: 2018-11-12 Test Time: 06:19:36 Pat Name: ALDA CORRAL Department: Room: 108 1 Gender: F [employer] T[employer]: RAMIREZ : 1945 Requested By: BENSON MERA Order Number: [id number] Reading MD: Measurements Intervals [place] Rate: 78 P: 28 [place]: 162 QRS: -9 QRSD: 66 T: 118 QT: 388 QTc: 446 Interpretive Statements SINUS RHYTHM LEFTWARD AXIS LOW LIMB LEAD VOLTAGE QRS(T) CONTOUR ABNORMALITY CONSISTENT WITH INFERIOR INFARCT PROBABLY OLD ST & T ABNORMALITY, CONSIDER HIGH LATERAL ISCHEMIA OR LEFT VENTRICULAR STRAIN ABNORMAL ECG RI6.01 Unconfirmed report Compared to ECG 12/15/2017 10:26:33 Left-axis deviation now present Myocardial infarct finding now present T-wave abnormality now present Possible ischemia now present
[2018-11-12 06:50] VITALS: BP 115/57
[2018-11-12 07:31] LABS: CALCIUM 8.6 mg/dL (8.5-10.1); CREATININE 1.2 mg/dL (0.6-1.0); MAGNESIUM 1.4 mg/dL (1.8-2.4); POTASSIUM 4.3 mmol/L (3.5-5.1)
[2018-11-12 07:33] LABS: BASO # 0.1 x10^3/uL (0.0-0.2); BASO % 1 % (0-3); EOS # 0.6 x10^3/uL (0.0-0.7); EOS % 4 % (0-3); HEMATOCRIT 26.9 % (36.0-47.0); HEMOGLOBIN 8.8 g/dL (12.0-15.5); LYMPH # 3.3 x10^3/uL (1.0-4.8); LYMPH % 23 % (24-48); MEAN CORPUSCULAR HEMOGLOBIN 30 pg (25-35); MEAN CORPUSCULAR HGB CONC 33 g/dL (31-37); MEAN CORPUSCULAR VOLUME 92 fL (79-100); MONO # 1.2 x10^3/uL (0.0-1.1); MONO % 8 % (0-9); NEUT # 9.1 x10^3/uL (1.8-7.7); NEUT % 64 % (31-73); PLATELET COUNT 367 x10^3/uL (140-400); RED BLOOD COUNT 2.94 x10^6/uL (3.50-5.40); WHITE BLOOD COUNT 14.3 x10^3/uL (4.0-11.0)
[2018-11-12] MEDS: IPRATRPIUM/ALBUTEROL 0.5/2.5MG 3 ML NEBU. NEB SCH ×3 (07:38→19:49)
[2018-11-12] MEDS ORDERED: ASPIRIN 325 MG TABLET PO SCH (08:00)
[2018-11-12] MEDS: INSULIN LISPRO 300 UNITS/3 ML INSULN.PEN. SQ SCH ×6 (08:00→17:54)
[2018-11-12] MEDS: CHOLECALCIFEROL (VITAMIN D3) 1,000 UNIT TABLET PO SCH (08:40)
[2018-11-12] MEDS: PANTOPRAZOLE 40 MG TABLET.DR. PO SCH (08:41)
[2018-11-12] MEDS: MULTIVITAMIN with MINERAL TABLET. PO SCH (08:41)
[2018-11-12] MEDS: amLODIPine BESYLATE 5 MG TABLET PO SCH (08:41)
[2018-11-12] MEDS: OMEGA-3 FATTY ACIDS/FISH OIL 1,000 MG CAPSULE. PO SCH (08:42)
[2018-11-12] MEDS: METOPROLOL SUCC 24HR ER 25 MG TAB.ER.24H. PO SCH (08:42)
[2018-11-12] MEDS: ASPIRIN ENTERIC COATED 325 MG TABLET.DR. PO SCH (08:43)
[2018-11-12] MEDS: DOCUSATE SODIUM 100 MG CAPSULE. PO SCH (08:43)
[2018-11-12] MEDS: LISINOPRIL 5 MG TABLET. PO SCH (08:43)
[2018-11-12] MEDS: CYANOCOBALAMIN (VITAMIN B-12) 1,000 MCG TABLET. PO SCH (08:43)
[2018-11-12] MEDS: SODIUM BICARBONATE 650 MG TABLET. PO SCH (08:43)
[2018-11-12] MEDS: busPIRone 10 MG TABLET. PO SCH ×3 (08:44→20:48)
[2018-11-12] MEDS: CETIRIZINE HCL 10 MG TABLET. PO SCH (08:44)
[2018-11-12] MEDS: buPROPion SR 150 MG TABLET.SA PO SCH ×2 (08:44→20:48)
[2018-11-12] MEDS: ASCORBIC ACID 500 MG TABLET PO SCH ×2 (08:45→20:48)
[2018-11-12] MEDS: ZONISAMIDE 100 MG CAPSULE. PO SCH ×3 (08:45→20:48)
[2018-11-12] MEDS: metFORMIN XR 500 MG TAB.ER.24H PO SCH ×2 (08:45→16:52)
[2018-11-12] MEDS: DULoxetine HCL 30 MG CAPSULE.DR PO SCH (08:45)
[2018-11-12] MEDS: CLOPIDOGREL BISULFATE 75 MG TABLET PO SCH (08:46)
[2018-11-12] MEDS: FLUTICASONE 50MCG/NASAL SPRAY 16GM BOTTLE. NS SCH (08:46)
[2018-11-12] MEDS: DICLOFENAC SODIUM 1% TOPICAL GEL 100GM TUBE. TP SCH ×4 (08:49→20:49)
[2018-11-12] MEDS: LIDOCAINE (700MG/PATCH) PATCH. TD SCH (08:49)
--- NOTE | 2018-11-12 08:58 | RAD ---
EXAM: AP, lateral and open-mouth odontoid views of cervical spine DATE: 11/11/2018 4:35 PM CLINICAL HISTORY: Neck pain with radiation to the shoulder COMPARISON: None available. FINDINGS: On the lateral view, the cervical spine is imaged from the skull base to C4. Visualized vertebral body heights are grossly preserved. Mild C2-3, C3-4, moderate C4-5 and severe C5-6 disc height loss. Associated anterior posterior endplate osteophytes are seen. Moderate facet degenerative changes at C2-3 and below. Straightening of the normal cervical lordosis. No spondylolisthesis. Accurate measurement of the predental space is limited given superimposed overlying structures. If there is concern for atlantodental instability, CT or repeat radiographs can be performed. Decreased bone mineral density. No significant prevertebral soft tissue swelling. IMPRESSION: 1. Accurate measurement of the atlantodental interval is limited given numerous overlying external structures limiting evaluation. If there is concern for atlantodental instability, CT or repeat radiographs can be performed. 2. Multilevel degenerative changes of the spine. 3. No definite fracture is seen. Electronically signed by: Eddie Sawant MD (11/12/2018 8:55 AM) [facility]
--- NOTE | 2018-11-12 09:40 | PDOC ---
PROGRESS NOTES Subjective Subjective She feels better but continues with left shoulder blade area pain. X-ray cervical spine revealed straightening of cervical spine with multi level DDD and DJD and she continues with tenderness to palpation over left cervical paraspinal and posterior shoulder girdle muscles and some limitation of right shoulder joint ROM,in a patient who had previous right shoulder surgery. Objective Objective Vital Signs Date Time Temp Pulse Resp B/P (MAP) Pulse Ox O2 Delivery O2 Flow Rate FiO2 11/12/18 08:43 92 115/57 11/12/18 07:40 94 Room Air 11/12/18 06:50 98.1 18 98.1 11/11/18 10:35 2.0 Intake and Output 11/12/18 06:59 Intake Total 968.9 ml Output Total 500 ml Balance 468.9 ml Intake Oral 600 ml IV Total 368.9 ml Output Urine Total 500 ml # Voids 2 Physical Exam Physical Exam To obtain mri scan of cervical vertebrae to rule out any new HNP,which can be done on out patient basis if she is medically stable to go home. Assessment Assessment Problems Medical Problems: (1) Congestive heart failure Status: Acute (2) Hypokalemia Status: Acute (3) Hypomagnesemia Status: Acute (4) NSTEMI (non-ST elevated myocardial infarction) Status: Acute (5) Renal insufficiency Status: Acute (6) Severe sepsis Status: Acute (7) Uncontrolled diabetes mellitus Status: Acute Plan Plan of Care I have again reviewed with her home exercise program and physical therapy to see her today. Comment Review of Relevant I have reviewed the following items danisha (where applicable) has been applied. Labs Laboratory Tests Test 11/10/18 11:42 11/10/18 17:23 11/10/18 21:23 11/11/18 04:00 Glucose (Fingerstick) 202 mg/dL (70-99) 124 mg/dL (70-99) 267 mg/dL (70-99) Heparin Anti-Xa Act, Unfractionated 0.36 IU/mL (0.30-0.70) Test 11/11/18 11:34 11/11/18 16:52 11/11/18 21:03 11/12/18 06:42 Glucose (Fingerstick) 134 mg/dL (70-99) 181 mg/dL (70-99) 165 mg/dL (70-99) White Blood Count 14.3 x10^3/uL (4.0-11.0) Red Blood Count 2.94 x10^6/uL (3.50-5.40) Hemoglobin 8.8 g/dL (12.0-15.5) Hematocrit 26.9 % (36.0-47.0) Mean Corpuscular Volume 92 fL (79-100) Mean Corpuscular Hemoglobin 30 pg (25-35) Mean Corpuscular Hemoglobin Concent 33 g/dL (31-37) Red Cell Distribution Width 15.0 % (11.5-14.5) Platelet Count 367 x10^3/uL (140-400) Neutrophils (%) (Auto) 64 % (31-73) Lymphocytes (%) (Auto) 23 % (24-48) Monocytes (%) (Auto) 8 % (0-9) Eosinophils (%) (Auto) 4 % (0-3) Basophils (%) (Auto) 1 % (0-3) Neutrophils # (Auto) 9.1 x10^3/uL (1.8-7.7) Lymphocytes # (Auto) 3.3 x10^3/uL (1.0-4.8) Monocytes # (Auto) 1.2 x10^3/uL (0.0-1.1) Eosinophils # (Auto) 0.6 x10^3/uL (0.0-0.7) Basophils # (Auto) 0.1 x10^3/uL (0.0-0.2) Sodium Level 137 mmol/L (136-145) Potassium Level 4.3 mmol/L (3.5-5.1) Chloride Level 105 mmol/L (98-107) Carbon Dioxide Level 20 mmol/L (21-32) Anion Gap 12 (6-14) Blood Urea Nitrogen 22 mg/dL (7-20) Creatinine 1.2 mg/dL (0.6-1.0) Estimated GFR (Cockcroft-Gault) 44.0 Glucose Level 119 mg/dL (70-99) Calcium Level 8.6 mg/dL (8.5-10.1) Magnesium Level 1.4 mg/dL (1.8-2.4) Test 11/12/18 07:38 Glucose (Fingerstick) 127 mg/dL (70-99) Laboratory Tests Test 11/11/18 11:34 11/11/18 16:52 11/11/18 21:03 11/12/18 06:42 Glucose (Fingerstick) 134 mg/dL (70-99) 181 mg/dL (70-99) 165 mg/dL (70-99) White Blood Count 14.3 x10^3/uL (4.0-11.0) Red Blood Count 2.94 x10^6/uL (3.50-5.40) Hemoglobin 8.8 g/dL (12.0-15.5) Hematocrit 26.9 % (36.0-47.0) Mean Corpuscular Volume 92 fL (79-100) Mean Corpuscular Hemoglobin 30 pg (25-35) Mean Corpuscular Hemoglobin Concent 33 g/dL (31-37) Red Cell Distribution Width 15.0 % (11.5-14.5) Platelet Count 367 x10^3/uL (140-400) Neutrophils (%) (Auto) 64 % (31-73) Lymphocytes (%) (Auto) 23 % (24-48) Monocytes (%) (Auto) 8 % (0-9) Eosinophils (%) (Auto) 4 % (0-3) Basophils (%) (Auto) 1 % (0-3) Neutrophils # (Auto) 9.1 x10^3/uL (1.8-7.7) Lymphocytes # (Auto) 3.3 x10^3/uL (1.0-4.8) Monocytes # (Auto) 1.2 x10^3/uL (0.0-1.1) Eosinophils # (Auto) 0.6 x10^3/uL (0.0-0.7) Basophils # (Auto) 0.1 x10^3/uL (0.0-0.2) Sodium Level 137 mmol/L (136-145) Potassium Level 4.3 mmol/L (3.5-5.1) Chloride Level 105 mmol/L (98-107) Carbon Dioxide Level 20 mmol/L (21-32) Anion Gap 12 (6-14) Blood Urea Nitrogen 22 mg/dL (7-20) Creatinine 1.2 mg/dL (0.6-1.0) Estimated GFR (Cockcroft-Gault) 44.0 Glucose Level 119 mg/dL (70-99) Calcium Level 8.6 mg/dL (8.5-10.1) Magnesium Level 1.4 mg/dL (1.8-2.4) Test 11/12/18 07:38 Glucose (Fingerstick) 127 mg/dL (70-99) Microbiology 11/08/18 Blood Culture - Preliminary, Resulted NO GROWTH AFTER 3 DAYS Medications Current Medications Heparin Sodium/ Dextrose 500 ml @ 0 mls/hr CONT PRN IV SEE I/O RECORD Last administered on 11/10/18at 01:08; Start 11/08/18 at 16:00; Stop 11/11/18 at 10:56; Status DC Heparin Sodium (Porcine) (Heparin Sodium) 1,650 unit PRN Q6HRS PRN IV FOR UFH LEVEL LESS THAN 0.2 Last administered on 11/09/18at 08:15; Start 11/08/18 at 16:00; Stop 11/11/18 at 10:56; Status DC Heparin Sodium (Porcine) (Heparin Sodium) 4,000 unit 1X ONCE IV Last administered on 11/08/18at 16:09; Start 11/08/18 at 16:15; Stop 11/08/18 at 16:16; Status DC Nitroglycerin/ Dextrose 250 ml @ 0 mls/hr 1X ONCE IV Last administered on 11/08/18at 16:41; Start 11/08/18 at 16:15; Stop 11/08/18 at 16:16; Status DC Labetalol HCl (Normodyne Iv Push) 20 mg 1X ONCE IVP Last administered on 11/08/18at 17:41; Start 11/08/18 at 16:15; Stop 11/08/18 at 16:16; Status DC Piperacillin Sod/ Tazobactam Sod 3.375 gm/Sodium Chloride 50 ml @ 100 mls/hr 1X ONCE IV Last administered on 11/08/18at 16:55; Start 11/08/18 at 16:15; Stop 11/08/18 at 16:44; Status DC Nitroglycerin/ Dextrose 250 ml @ 0 mls/hr 1X ONCE IV ; Start 11/08/18 at 16:15; Stop 11/08/18 at 16:16; Status UNV Potassium Chloride (Klor-Con) 40 meq 1X ONCE PO Last administered on 11/08/18 16:58; Start 11/08/18 at 16:15; Stop 11/08/18 at 16:16; Status DC Magnesium Sulfate/ Dextrose 100 ml @ 25 mls/hr 1X ONCE IV Last administered on 11/08/18 16:55; Start 11/08/18 at 16:15; Stop 11/08/18 at 20:14; Status DC Sodium Chloride 1,000 ml @ 60 mls/hr 1X ONCE IV Last administered on 11/08/18at 17:47; Start 11/08/18 at 16:15; Stop 11/09/18 at 08:54; Status DC Albuterol Sulfate (Ventolin Neb Soln) 2.5 mg RTQID INH ; Start 11/08/18 at 20:00; Stop 11/09/18 at 08:27; Status DC Amlodipine Besylate (Norvasc) 5 mg DAILY PO Last administered on 11/12/18 08:41; Start 11/09/18 at 09:00 Ascorbic Acid (Vitamin C) 500 mg BID PO Last administered on 11/12/18 08:45; Start 11/08/18 at 21:00 Atorvastatin Calcium (Lipitor) 10 mg HS PO Last administered on 11/11/18 22:46; Start 11/08/18 at 21:00 Bupropion HCl (Wellbutrin Sr) 150 mg BID PO Last administered on 11/12/18 08:44; Start 11/08/18 at 21:00 Buspirone HCl (Buspar) 15 mg TID PO Last administered on 11/12/18 08:44; Start 11/08/18 at 21:00 Carbamazepine (TEGretol XR) 200 mg QHS PO Last administered on 11/11/18 23:55; Start 11/08/18 at 21:00 Cetirizine HCl (ZyrTEC) 10 mg DAILY PO Last administered on 11/12/18 08:44; Start 11/09/18 at 09:00 Clonazepam (KlonoPIN) 0.5 mg PRN TID PRN PO ANXIETY / AGITATION Last administered on 11/11/18 11:05; Start 11/08/18 at 21:00 Clopidogrel Bisulfate (Plavix) 75 mg DAILY PO Last administered on 11/10/18 08:48; Start 11/09/18 at 09:00; Stop 11/12/18 at 02:16; Status DC Cyanocobalamin (Vitamin B-12) 1,000 mcg DAILY PO Last administered on 11/12/18 08:43; Start 11/09/18 at 09:00 Diclofenac Sodium (Voltaren) 100 mac QID TP Last administered on 11/12/18 08:49; Start 11/08/18 at 17:00 Albuterol/ Ipratropium (Duoneb) 3 ml TID NEB Last administered on 11/12/18 07:38; Start 11/08/18 at 21:00 Metoprolol Succinate (Toprol Xl) 12.5 mg DAILY PO Last administered on 11/12/18 08:42; Start 11/09/18 at 09:00 Nortriptyline HCl (Pamelor) 50 mg HS PO Last administered on 11/11/18 22:46; Start 11/08/18 at 21:00 Fish Oil (Fish Oil) 1,000 mg DAILY PO Last administered on 11/12/18 08:42; Start 11/09/18 at 09:00 Sodium Bicarbonate (Sodium Bicarbonate) 650 mg DAILY PO Last administered on 11/12/18 08:43; Start 11/09/18 at 09:00 Vitamin D (Vitamin D3) 1,000 unit DAILY PO Last administered on 11/12/18 08:40; Start 11/09/18 at 09:00 Duloxetine HCl (Cymbalta) 60 mg DAILY PO Last administered on 11/12/18 08:45; Start 11/09/18 at 09:00 Erythromycin (E-Mycin) 125 mg BID PO Last administered on 11/11/18 22:46; Start 11/08/18 at 21:00 Fluticasone Propionate (Flonase) 2 spray DAILY NS Last administered on 11/12/18 08:46; Start 11/09/18 at 09:00 Insulin Human Lispro (HumaLOG) 15 units TIDWMEALS SQ Last administered on 11/12/18 08:58; Start 11/08/18 at 17:00 Insulin Glargine (Lantus) 80 units Q12HR SQ ; Start 11/08/18 at 21:00; Stop 11/08/18 at 21:00; Status DC Lisinopril (Prinivil) 5 mg DAILY PO Last administered on 11/12/18 08:43; Start 11/09/18 at 09:00 Metformin HCl (Glucophage Xr) 1,000 mg BIDWMEALS PO Last administered on 11/12/18 08:45; Start 11/08/18 at 17:00 Mirtazapine (Remeron) 15 mg QHS PO Last administered on 11/11/18 22:47; Start 11/08/18 at 21:00 Multivitamins (Thera M Plus) 1 tab DAILY PO Last administered on 11/12/18 08:41; Start 11/09/18 at 09:00 Pantoprazole Sodium (Protonix) 40 mg DAILYAC PO Last administered on 11/12/18 08:41; Start 11/09/18 at 07:30 Ropinirole HCl (Requip) 1 mg QHS PO Last administered on 11/11/18 23:04; Start 11/08/18 at 21:00 Zonisamide (Zonegran) 100 mg TID PO Last administered on 11/12/18 08:45; S tart 11/08/18 at 21:00 Insulin Human Lispro (HumaLOG) 0-9 UNITS TIDWMEALS SQ Last administered on 11/11/18at 17:07; Start 11/08/18 at 17:00 Dextrose (Dextrose 50%-Water Syringe) 12.5 gm PRN Q15MIN PRN IV SEE COMMENTS; Start 11/08/18 at 16:30 Dextrose (Dextrose 50%-Water Syringe) 12.5 gm PRN Q15MIN PRN IV SEE COMMENTS; Start 11/08/18 at 16:30; Status UNV Insulin Glargine (Lantus) 20 units QHS SQ Last administered on 11/11/18 23:10; Start 11/08/18 at 21:00 Docusate Sodium (Colace) 100 mg DAILY PO Last administered on 11/12/18 08:43; Start 11/09/18 at 09:00 Info (Anti-Coagulation Monitoring By Pharmacy) 1 each PRN DAILY PRN MC SEE COMMENTS Last administered on 11/10/18 09:43; Start 11/09/18 at 08:00 Docusate Sodium (Colace) 100 mg PRN DAILY PRN PO HARD STOOLS; Start 11/09/18 at 11:00 Polyethylene Glycol (miraLAX PACKET) 17 gm PRN DAILY PRN PO CONSTIPATION, 1ST CHOICE; Start 11/09/18 at 11:00 Polyethylene Glycol (miraLAX PACKET) 17 gm 1X ONCE PO Last administered on 11/09/18at 11:08; Start 11/09/18 at 11:00; Stop 11/09/18 at 11:02; Status DC Acetaminophen/ Aspirin/Caffeine (Excedrin Migraine) 1 tab PRN Q6HRS PRN PO MIGRAINE HEADACHE Last administered on 11/10/18at 11:01; Start 11/09/18 at 20:45 Oxycodone/ Acetaminophen (Percocet 7.5/ 325) 1 tab 1X ONCE PO Last administered on 11/09/18at 21:59; Start 11/09/18 at 22:00; Stop 11/09/18 at 22:01; Status DC Albuterol Sulfate (Ventolin Neb Soln) 2.5 mg PRN Q4HRS PRN NEB SHORTNESS OF BREATH; Start 11/09/18 at 23:15 Lidocaine (Lidoderm) 1 patch DAILY TD Last administered on 11/12/18at 08:49; Start 11/10/18 at 12:00 Miscellaneous (Lidoderm Patch Removal) 1 ea QHS MC Last administered on 11/11/18at 21:00; Start 11/10/18 at 21:00 Cyclobenzaprine HCl (Flexeril) 10 mg PRN Q6HRS PRN PO MUSCLE SPASMS Last administered on 11/11/18at 22:53; Start 11/10/18 at 11:30 Oxycodone/ Acetaminophen (Percocet 5/325) 1 tab PRN Q4HRS PRN PO PAIN Last administered on 11/11/18at 17:04; Start 11/10/18 at 11:30 Sodium Chloride 1,000 ml @ 60 mls/hr [id number] IV Last administered on 11/11/18at 15:15; Start 11/11/18 at 08:00 Iodixanol (Visipaque 320) 100 ml STK-MED ONCE .ROUTE ; Start 11/11/18 at 08:32; Stop 11/11/18 at 08:33; Status DC Lidocaine HCl (Lidocaine 1% 20ml Vial) 20 ml STK-MED ONCE .ROUTE ; Start 11/11/18 at 08:32; Stop 11/11/18 at 08:33; Status DC Heparin Sodium/ Sodium Chloride 1,500 ml @ As Directed STK-MED ONCE .ROUTE ; Start 11/11/18 at 08:32; Stop 11/11/18 at 08:33; Status DC Fentanyl Citrate (Fentanyl 2ml Vial) 100 mcg STK-MED ONCE .ROUTE ; Start 11/11/18 at 08:56; Stop 11/11/18 at 08:57; Status DC Midazolam HCl (Versed) 5 mg STK-MED ONCE .ROUTE ; Start 11/11/18 at 08:56; Stop 11/11/18 at 08:57; Status DC Heparin Sodium/ Sodium Chloride (HEPARIN for ARTERIAL LINE FLUSH) 1,000 unit 1X ONCE IART Last administered on 11/11/18at 10:34; Start 11/11/18 at 09:30; Stop 11/11/18 at 09:31; Status DC Heparin Sodium/ Sodium Chloride (HEPARIN for ARTERIAL LINE FLUSH) 1,000 unit 1X ONCE IART Last administered on 11/11/18at 10:34; Start 11/11/18 at 09:30; Stop 11/11/18 at 09:31; Status DC Midazolam HCl (Versed) 5 mg 1X ONCE IV Last administered on 11/11/18at 10:35; Start 11/11/18 at 09:30; Stop 11/11/18 at 09:31; Status DC Fentanyl Citrate (Fentanyl 2ml Vial) 100 mcg 1X ONCE IV Last administered on 11/11/18at 10:35; Start 11/11/18 at 09:30; Stop 11/11/18 at 09:31; Status DC Iodixanol (Visipaque 320) 100 ml 1X ONCE IART Last administered on 11/11/18at 1 0:33; Start 11/11/18 at 09:30; Stop 11/11/18 at 09:31; Status DC Lidocaine HCl (Lidocaine 1% 20ml Vial) 20 ml 1X ONCE INJ Last administered on 11/11/18at 10:33; Start 11/11/18 at 09:30; Stop 11/11/18 at 09:31; Status DC Info (CONTRAST GIVEN -- Rx MONITORING) 1 each PRN DAILY PRN MC SEE COMMENTS; Start 11/11/18 at 09:30; Stop 11/13/18 at 09:29 Bivalirudin (Angiomax) 250 mg STK-MED ONCE IV ; Start 11/11/18 at 09:51; Stop 11/11/18 at 09:52; Status DC Iodixanol (Visipaque 320) 100 ml STK-MED ONCE .ROUTE ; Start 11/11/18 at 09:55; Stop 11/11/18 at 09:56; Status DC Nitroglycerin (Nitroglycerin) 200 mcg 1X ONCE IART Last administered on 11/11/18at 10:35; Start 11/11/18 at 10:15; Stop 11/11/18 at 10:16; Status DC Bivalirudin (Angiomax) 250 mg 1X ONCE IV Last administered on 11/11/18at 10:36; Start 11/11/18 at 10:15; Stop 11/11/18 at 10:16; Status DC Clopidogrel Bisulfate (Plavix) 300 mg 1X ONCE PO Last administered on 11/11/18at 10:35; Start 11/11/18 at 10:30; Stop 11/11/18 at 10:31; Status DC Aspirin (wooju Aspirin) 325 mg 1X ONCE PO Last administered on 11/11/18at 10:35; Start 11/11/18 at 10:30; Stop 11/11/18 at 10:31; Status DC Aspirin (wooju Aspirin) 325 mg DAILYWBKFT PO ; Start 11/12/18 at 08:00; Stop 11/12/18 at 08:00; Status DC Clopidogrel Bisulfate (Plavix) 75 mg STK-MED ONCE .ROUTE ; Start 11/11/18 at 10:25; Stop 11/11/18 at 10:26; Status DC Aspirin (wooju Aspirin) 325 mg STK-MED ONCE .ROUTE ; Start 11/11/18 at 10:25; Stop 11/11/18 at 10:26; Status DC Sodium Chloride (Normal Saline Flush) 3 ml QSHIFT PRN IV AFTER MEDS AND BLOOD DRAWS; Start 11/11/18 at 11:00 Sodium Chloride 1,000 ml @ 60 mls/hr [id number] IV Last administered on 11/11/18at 11:11; Start 11/11/18 at 10:55; Stop 11/11/18 at 14:54; Status DC Aspirin (Ecotrin) 325 mg DAILYWBKFT PO Last administered on 11/12/18at 08:43; Start 11/12/18 at 08:00 Clopidogrel Bisulfate (Plavix) 75 mg DAILYWBKFT PO Last administered on 11/12/18at 08:46; Start 11/11/18 at 12:00 Acetaminophen (Tylenol) 650 mg PRN Q6HRS PRN PO MILD PAIN / TEMP; Start 9 at 11:00 Fentanyl Citrate (Fentanyl 2ml Vial) 50 mcg PRN Q1HR PRN IV MODERATE OR SEVERE PAIN; Start 11/11/18 at 11:00 Nitroglycerin (Nitrostat) 0.4 mg PRN Q5MIN PRN SL CHEST PAIN; Start 11/11/18 at 11:00 Amiodarone HCl 150 mg/Dextrose 103 ml @ 600 mls/hr 1X PRN PRN IV FOR V TACHYCARDIA 1ST CHOICE; Start 11/11/18 at 11:00 Lidocaine HCl (Lidocaine HCl 2% Abboject) 100 mg 1X PRN PRN IV FOR V TACHYCARDIA 2ND CHOICE; Start 11/11/18 at 11:00 Atropine Sulfate (ATROPINE 0.5mg SYRINGE) 0.5 mg PRN 1X PRN IV BRADYCARDIA; Start 11/11/18 at 11:00 Bisacodyl (Dulcolax Supp) 10 mg PRN DAILY PRN [place] CONSTIPATION; Start 11/11/18 at 16:45 Bisacodyl (Dulcolax Tab) 5 mg PRN DAILY PRN PO CONSTIPATION, 2ND CHOICE; Start 11/11/18 at 16:45 Active Scripts Active Reported Tegretol (Carbamazepine) 200 Mg Tablet 200 Mg PO QHS Metoprolol Succinate ( Xl ) (Metoprolol Succinate) 25 Mg Tab.er.24h 12.5 Mg PO DAILY Klonopin (Clonazepam) 0.5 Mg Tablet 0.5 Mg PO PRN BID PRN Fish Oil 1,000 Mg Capsule ([place]andrews-3 Fatty Acids/Fish Oil) 1 Each Capsule 1 Each PO TID Cymbalta (Duloxetine Hcl) 60 Mg Capsule.dr 60 Mg PO DAILY Loperamide (Loperamide Hcl) 2 Mg Capsule 2 Mg PO Zyrtec (Cetirizine Hcl) 10 Mg Tablet 1 Tab PO DAILY Zonisamide 100 Mg Capsule 100 Mg PO TID Sodium Bicarbonate 650 Mg Tablet 1 Tab PO DAILY Ranitidine Hcl 150 Mg Tablet 150 Mg PO DAILY Protonix (Pantoprazole Sodium) 20 Mg Tablet.dr 40 Mg PO DAILY Nortriptyline Hcl 25 Mg Capsule 50 Mg PO HS Duoneb 0.5-3(2.5) Mg/3 Ml (Albuterol/Ipratropium) 3 Ml Ampul.neb 3 Ml NEB TID Erythromycin (Erythromycin Base) 250 Mg Capsule.dr 125 Mg PO BID Clopidogrel (Clopidogrel Bisulfate) 75 Mg Tablet 1 Tab PO DAILY Atorvastatin Calcium 10 Mg Tablet 10 Mg PO HS Multivitamins (Multivitamin) 1 Each Tablet 1 Tab PO DAILY Mirtazapine 15 Mg Tablet 30 Mg PO QHS Lisinopril 5 Mg Tablet 1 Tab PO DAILY Vitamin B-12 (Cyanocobalamin (Vitamin B-12)) 1,000 Mcg Tablet 1 Tab PO DAILY Vitamin D (Cholecalciferol (Vitamin D3)) 1,000 Unit Capsule 1 Cap PO DAILY Buspirone Hcl 10 Mg Tablet 15 Mg PO TID Ascorbic Acid 500 Mg Tablet 500 Mg PO BID Amlodipine Besylate 5 Mg Tablet 5 Mg PO DAILY Voltaren (Diclofenac Sodium) 100 Gm Gel..gram. 100 Gm TP QID Levemir Flextouch (Insulin Detemir) 100 Unit/1 Ml Insuln.pen 80 Unit SQ BID Flonase Allergy Relief (Fluticasone Propionate) 9.9 Ml [place].susp 2 Spr NS DAILY Wellbutrin Sr (Bupropion Hcl) 150 Mg Tablet.er 1 Tab PO BID Proair Hfa Inhaler (Albuterol Sulfate) 8.5 Gm Hfa.aer.ad 2 Puff IH QID Aspir 81 (Aspirin) 81 Mg Tablet.dr 81 Mg PO DAILY Metformin Hcl Er (Metformin Hcl) 500 Mg Tab.er.24 1,000 Mg PO BIDAC Ropinirole Hcl 1 Mg Tablet 1 Mg PO QHS Novolog (Insulin Aspart) 100 Unit/1 Ml Cartridge 15 Unit SQ TIDAC Vitals/I & O Vital Sign - Last 24 Hours 11/11/18 11/11/18 11/11/18 11/11/18 10:35 10:39 10:45 11:00 Temp 98.3 98.3 Pulse 78 78 78 Resp 20 20 25 29 B/P (MAP) 122/84 (97) 128/72 (90) Pulse Ox 96 96 94 92 O2 Delivery Nasal Cannula Room Air Room Air Room Air O2 Flow Rate 2.0 11/11/18 11/11/18 11/11/18 11/11/18 11:04 11:04 11:05 11:15 Pulse 80 80 80 78 Resp 25 B/P (MAP) 128/72 128/72 128/72 119/60 (79) Pulse Ox 94 O2 Delivery Room Air 11/11/18 11/11/18 11/11/18 11/11/18 11:30 11:36 12:00 12:30 Pulse 78 78 75 Resp 19 24 18 18 B/P (MAP) 115/53 (73) 118/56 (76) 84/46 (59) Pulse Ox 97 94 95 94 O2 Delivery Room Air Room Air Room Air Room Air 11/11/18 11/11/18 11/11/18 11/11/18 12:36 13:00 14:00 15:00 Pulse 76 74 73 Resp 19 21 B/P (MAP) 93/44 (60) 91/52 (65) 99/56 (70) Pulse Ox 96 96 95 98 O2 Delivery Room Air Room Air Room Air 11/11/18 11/11/18 11/11/18 11/11/18 15:12 15:18 16:07 17:04 Pulse 73 Resp 18 B/P (MAP) 99/56 (70) 99/52 (68) Pulse Ox 97 O2 Delivery Room Air Room Air 11/11/18 11/11/18 11/11/18 11/11/18 18:04 19:40 19:51 20:00 Temp 98.3 98.3 Pulse 80 Resp 20 18 B/P (MAP) 91/54 (66) Pulse Ox 95 96 O2 Delivery Room Air Room Air Room Air Room Air 11/11/18 11/12/18 11/12/18 11/12/18 22:50 03:20 06:50 07:40 Temp 98.5 98.3 98.1 98.5 98.3 98.1 Pulse 74 81 81 Resp 18 18 18 B/P (MAP) 97/53 (68) 94/52 (66) 115/57 (76) Pulse Ox 91 95 90 94 O2 Delivery Room Air Room Air Room Air Room Air 11/12/18 11/12/18 11/12/18 08:41 08:42 08:43 Pulse 92 92 92 B/P (MAP) 115/57 115/57 115/57 Intake and Output 11/11/18 11/11/18 11/12/18 14:59 22:59 06:59 Intake Total 276 ml 292.9 ml 400 ml Output Total 100 ml 400 ml Balance 276 ml 192.9 ml 0 ml CRISTOFER CLEMENS MD Nov 12, 2018 09:40
[2018-11-12] MEDS: ERYTHROMYCIN BASE 250 MG TABLET PO SCH ×2 (10:17→20:48)
--- NOTE | 2018-11-12 10:24 | SNU/HH DC ---
DISCHARGE WITH HOME HEALTH DISCHARGE INFORMATION: Discharge Date: Nov 12, 2018 Final Diagnosis: Problems Medical Problems: (1) Congestive heart failure Status: Acute (2) Hypokalemia Status: Acute (3) Hypomagnesemia Status: Acute (4) NSTEMI (non-ST elevated myocardial infarction) Status: Acute (5) Renal insufficiency Status: Acute (6) Severe sepsis Status: Acute (7) Uncontrolled diabetes mellitus Status: Acute Condition on Discharge: Stable CODE STATUS: Code Status: Full HOME HEALTH: Face to Face: I certify this patient is under my care and that I, or a nurse practitioner or physician's digital marketing assistant working with me, had a face to face encounter that meets the physician face to face encounter requirements with this patient on 11/12 Medical Complications: CHF, DM, Other (NSTEMI) RN For Eval/Treatment: Yes Physical Therapy For: Evalulation/Treatment Occupational Therapy For: Evaluation/Treatment Pt Meets Homebound Status: Limited distance walking, Other: (weakness, unable to drive) POST DISCHARGE ORDERS: Activity Instructions for Disc: Activity as tolerated Weight Bearing Status after Di: Full weight bearing DIET AFTER DISCHARGE: ADA (cardiac) Wound/Incision Care: No wound care needed DC TO SNF OTHER: Doug drain, empty q shift CHECKS AFTER DISCHARGE: Checks after discharge: Check blood press - daily, Check blood sugar, ac/hs FOLLOW-UP: Follow up with: primary care < 2 weeks, Dr. Berrios - physiatry, cardiology 1 month TREATMENT/EQUIPMENT ORDERS: Adaptive Equipment Issued: None Discharge Respiratory Equipmen: Oxygen CERTIFICATION STATEMENT: Certification Statement: Certification Statement: Based on the above finding, I certify that this patient is confined to the home and needs intermittent intermediate care, physical therapy and/or speech therapy, or continues to need occupational therapy.~ This patient is under my care, and I have initiated the establishment of the plan of care.~ This patient will be followed by myself or a community physician who will periodically review the plan of care. Home Meds Reported Medications Carbamazepine (TEGRETOL) 200 Mg Tablet, 200 MG PO QHS, TAB 11/08/18 Metoprolol Succinate (METOPROLOL SUCCINATE ( XL )) 25 Mg Tab.er.24h, 12.5 MG PO DAILY for FOR HYPERTENSION, #30 TAB 0 Refills 11/08/18 Clonazepam (KLONOPIN) 0.5 Mg Tablet, 0.5 MG PO PRN BID PRN for ANXIETY / AGITATION, TAB 01/08/18 [place]-3 Fatty Acids/Fish Oil (FISH OIL 1,000 MG CAPSULE) 1 Each Capsule, 1 EACH PO TID, CAP 01/08/18 Duloxetine Hcl (CYMBALTA) 60 Mg Capsule.dr, 60 MG PO DAILY, CAP 01/08/18 Loperamide Hcl (LOPERAMIDE) 2 Mg Capsule, 2 MG PO, CAP 01/04/18 Cetirizine Hcl (ZYRTEC) 10 Mg Tablet, 1 TAB PO DAILY, #30 TAB 2 Refills 01/04/18 Zonisamide (ZONISAMIDE) 100 Mg Capsule, 100 MG PO TID, CAP 12/14/17 Sodium Bicarbonate (SODIUM BICARBONATE) 650 Mg Tablet, 1 TAB PO DAILY, #60 TAB 5 Refills 12/14/17 Ranitidine Hcl (RANITIDINE HCL) 150 Mg Tablet, 150 MG PO DAILY, TAB 12/14/17 Pantoprazole Sodium (PROTONIX) 20 Mg Tablet.dr, 40 MG PO DAILY, TAB 12/14/17 Nortriptyline Hcl (NORTRIPTYLINE HCL) 25 Mg Capsule, 50 MG PO HS, CAP 12/14/17 Ipratropium/Albuterol Sulfate (DUONEB 0.5-3(2.5) MG/3 ML) 3 Ml Ampul.neb, 3 ML NEB TID, EACH 12/14/17 Erythromycin Base (ERYTHROMYCIN) 250 Mg Capsule.dr, 125 MG PO BID, CAP 12/14/17 Clopidogrel Bisulfate (CLOPIDOGREL) 75 Mg Tablet, 1 TAB PO DAILY, #90 TAB 1 Refill 12/14/17 Atorvastatin Calcium (ATORVASTATIN CALCIUM) 10 Mg Tablet, 10 MG PO HS for FOR CHOLESTEROL, #30 TAB 0 Refills 12/14/17 Multivitamin (MULTIVITAMINS) 1 Each Tablet, 1 TAB PO DAILY, #90 TAB 3 Refills 06/25/17 Mirtazapine (MIRTAZAPINE) 15 Mg Tablet, 30 MG PO QHS, #30 TAB 3 Refills 06/25/17 Lisinopril (LISINOPRIL) 5 Mg Tablet, 1 TAB PO DAILY, #30 TAB 5 Refills 06/25/17 Cyanocobalamin (Vitamin B-12) (VITAMIN B-12) 1,000 Mcg Tablet, 1 TAB PO DAILY, #30 TAB 2 Refills 06/25/17 Cholecalciferol (Vitamin D3) (VITAMIN D) 1,000 Unit Capsule, 1 CAP PO DAILY, #30 CAP 3 Refills 06/25/17 Buspirone Hcl (BUSPIRONE HCL) 10 Mg Tablet, 15 MG PO TID, #60 TAB 1 Refill 06/25/17 Ascorbic Acid (ASCORBIC ACID) 500 Mg Tablet, 500 MG PO BID, TAB 06/25/17 Amlodipine Besylate (AMLODIPINE BESYLATE) 5 Mg Tablet, 5 MG PO DAILY, TAB 06/25/17 Diclofenac Sodium (VOLTAREN) 100 Gm Gel..gram., 100 GM TP QID 02/02/15 Insulin Detemir (Levemir Flextouch) 100 Unit/1 Ml Insuln.pen, 80 UNIT SQ BID, SYR 02/02/15 Fluticasone Propionate (Flonase Allergy Relief) 9.9 Ml [place].susp, 2 SPR NS DAILY 02/01/15 Bupropion Hcl (WELLBUTRIN SR) 150 Mg Tablet.er, 1 TAB PO BID, #60 TAB 5 Refills 02/01/15 Albuterol Sulfate (PROAIR HFA INHALER) 8.5 Gm Hfa.aer.ad, 2 PUFF IH QID, #1 INHALER 02/01/15 Aspirin (ASPIR 81) 81 Mg Tablet.dr, 81 MG PO DAILY, TAB 09/03/13 Metformin Hcl (METFORMIN HCL ER) 500 Mg Tab.er.24, 1000 MG PO BIDAC 09/03/13 Ropinirole Hcl (ROPINIROLE HCL) 1 Mg Tablet, 1 MG PO QHS 09/03/13 Insulin Aspart (NOVOLOG) 100 Unit/1 Ml Cartridge, 15 UNIT SQ TIDAC 09/03/13 Discontinued Reported Medications Metoprolol Tartrate (METOPROLOL TARTRATE) 25 Mg Tablet, 0.5 TAB PO DAILY, #180 TAB 1 Refill 12/14/17 Carbamazepine (TEGRETOL) 200 Mg Tablet, 1 TAB PO QHS, #60 TAB 1 Refill 02/01/15 Discontinued Scripts Amoxicillin/Potassium Clav (AMOX TR-K CLV 875-125 MG TAB) 1 Each Tablet, 1 TAB PO DAILY, #10 TAB Prov:TANNER COMER MD 01/13/18 Doxycycline Hyclate (DOXYCYCLINE HYCLATE) 100 Mg Tablet, 100 MG PO BID, #10 TAB Prov:TANNER COMER MD 01/13/18 TANNER COMER MD Nov 12, 2018 10:23
[2018-11-12 10:30] VITALS: BP 98/52
--- NOTE | 2018-11-12 11:18 | PDOC3 ---
Discharge Summary Visit Information Date of Admission: Nov 08, 2018 Date of Discharge: Nov 12, 2018 Final Diagnosis 1. NSTEMI, trop peak 25, 2. CAD: see 2018 LHC 3. Accelerated HTN 4. HLP 5. Nontraumatic mechanical fall: Sunday. 6. Obesity - BMI 32 7. Hypokalmeia 8. DM 2 on insulin 9. back pain, MS, Problems Medical Problems: (1) Congestive heart failure Status: Acute (2) Hypokalemia Status: Acute (3) Hypomagnesemia Status: Acute (4) NSTEMI (non-ST elevated myocardial infarction) Status: Acute (5) Renal insufficiency Status: Acute (6) Severe sepsis Status: Acute (7) Uncontrolled diabetes mellitus Status: Acute Brief Hospital Course Allergies Allergies Coded Allergies Type Severity Reaction Last Updated Verified grapefruit Allergy Intermediate 01/04/18 Yes hydromorphone Allergy Intermediate 01/04/18 Yes metoclopramide Allergy Intermediate 01/04/18 Yes morphine Allergy Intermediate BROKE OUT WITH RASH 01/04/18 Yes phenytoin Allergy Intermediate 01/04/18 Yes temazepam Allergy Intermediate 01/04/18 Yes trazodone Allergy Intermediate 01/04/18 Yes zolpidem Allergy Intermediate 01/04/18 Yes I S O L A T I O N *CONTACT* Allergy Unknown 11/11/18 Yes Vital Signs Vital Signs Date Time Temp Pulse Resp B/P (MAP) Pulse Ox O2 Delivery O2 Flow Rate FiO2 11/12/18 10:30 97.8 84 18 98/52 (67) 93 Room Air 97.8 11/11/18 10:35 2.0 Lab Results Laboratory Tests Test 11/10/18 11:42 11/10/18 17:23 11/10/18 21:23 11/11/18 04:00 Glucose (Fingerstick) 202 mg/dL (70-99) 124 mg/dL (70-99) 267 mg/dL (70-99) Heparin Anti-Xa Act, Unfractionated 0.36 IU/mL (0.30-0.70) Test 11/11/18 11:34 11/11/18 16:52 11/11/18 21:03 11/12/18 06:42 Glucose (Fingerstick) 134 mg/dL (70-99) 181 mg/dL (70-99) 165 mg/dL (70-99) White Blood Count 14.3 x10^3/uL (4.0-11.0) Red Blood Count 2.94 x10^6/uL (3.50-5.40) Hemoglobin 8.8 g/dL (12.0-15.5) Hematocrit 26.9 % (36.0-47.0) Mean Corpuscular Volume 92 fL (79-100) Mean Corpuscular Hemoglobin 30 pg (25-35) Mean Corpuscular Hemoglobin Concent 33 g/dL (31-37) Red Cell Distribution Width 15.0 % (11.5-14.5) Platelet Count 367 x10^3/uL (140-400) Neutrophils (%) (Auto) 64 % (31-73) Lymphocytes (%) (Auto) 23 % (24-48) Monocytes (%) (Auto) 8 % (0-9) Eosinophils (%) (Auto) 4 % (0-3) Basophils (%) (Auto) 1 % (0-3) Neutrophils # (Auto) 9.1 x10^3/uL (1.8-7.7) Lymphocytes # (Auto) 3.3 x10^3/uL (1.0-4.8) Monocytes # (Auto) 1.2 x10^3/uL (0.0-1.1) Eosinophils # (Auto) 0.6 x10^3/uL (0.0-0.7) Basophils # (Auto) 0.1 x10^3/uL (0.0-0.2) Sodium Level 137 mmol/L (136-145) Potassium Level 4.3 mmol/L (3.5-5.1) Chloride Level 105 mmol/L (98-107) Carbon Dioxide Level 20 mmol/L (21-32) Anion Gap 12 (6-14) Blood Urea Nitrogen 22 mg/dL (7-20) Creatinine 1.2 mg/dL (0.6-1.0) Estimated GFR (Cockcroft-Gault) 44.0 Glucose Level 119 mg/dL (70-99) Calcium Level 8.6 mg/dL (8.5-10.1) Magnesium Level 1.4 mg/dL (1.8-2.4) Test 11/12/18 07:38 Glucose (Fingerstick) 127 mg/dL (70-99) Laboratory Tests Test 11/11/18 11:34 11/11/18 16:52 11/11/18 21:03 11/12/18 06:42 Glucose (Fingerstick) 134 mg/dL (70-99) 181 mg/dL (70-99) 165 mg/dL (70-99) White Blood Count 14.3 x10^3/uL (4.0-11.0) Red Blood Count 2.94 x10^6/uL (3.50-5.40) Hemoglobin 8.8 g/dL (12.0-15.5) Hematocrit 26.9 % (36.0-47.0) Mean Corpuscular Volume 92 fL (79-100) Mean Corpuscular Hemoglobin 30 pg (25-35) Mean Corpuscular Hemoglobin Concent 33 g/dL (31-37) Red Cell Distribution Width 15.0 % (11.5-14.5) Platelet Count 367 x10^3/uL (140-400) Neutrophils (%) (Auto) 64 % (31-73) Lymphocytes (%) (Auto) 23 % (24-48) Monocytes (%) (Auto) 8 % (0-9) Eosinophils (%) (Auto) 4 % (0-3) Basophils (%) (Auto) 1 % (0-3) Neutrophils # (Auto) 9.1 x10^3/uL (1.8-7.7) Lymphocytes # (Auto) 3.3 x10^3/uL (1.0-4.8) Monocytes # (Auto) 1.2 x10^3/uL (0.0-1.1) Eosinophils # (Auto) 0.6 x10^3/uL (0.0-0.7) Basophils # (Auto) 0.1 x10^3/uL (0.0-0.2) Sodium Level 137 mmol/L (136-145) Potassium Level 4.3 mmol/L (3.5-5.1) Chloride Level 105 mmol/L (98-107) Carbon Dioxide Level 20 mmol/L (21-32) Anion Gap 12 (6-14) Blood Urea Nitrogen 22 mg/dL (7-20) Creatinine 1.2 mg/dL (0.6-1.0) Estimated GFR (Cockcroft-Gault) 44.0 Glucose Level 119 mg/dL (70-99) Calcium Level 8.6 mg/dL (8.5-10.1) Magnesium Level 1.4 mg/dL (1.8-2.4) Test 11/12/18 07:38 Glucose (Fingerstick) 127 mg/dL (70-99) Brief Hospital Course Ms. 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 Diffuse moderate disease in the left circumflex and right coronary systems as above. Successful balloon angioplasty of the restenotic LAD stent decreasing the lesion to less than 10%. Elevated LVEDP. hgb A1c 8.6 needs home health, f/u Discharge Information Condition at Discharge: Improved Follow Up: Weeks Disposition/Orders: D/C to Home w/ HH Scheduled Albuterol Sulfate (Proair Hfa Inhaler) 8.5 Gm Hfa.aer.ad, 2 PUFF IH QID, #1 (Reported) Entered as Reported by: GERI BONILLA on 02/01/151657 Last Action: Continued on 11/08/181617 by WALDEMAR COE Amlodipine Besylate (Amlodipine Besylate) 5 Mg Tablet, 5 MG PO DAILY, (Reported) Entered as Reported by: ELIZA CABALLERO on 06/25/171948 Last Action: Continued on 11/08/181617 by WALDEMAR COE Ascorbic Acid (Ascorbic Acid) 500 Mg Tablet, 500 MG PO BID, (Reported) Entered as Reported by: ELIAZ CABALLERO on 06/25/171948 Last Action: Continued on 11/08/181617 by WALDEMAR COE Aspirin (Aspir 81) 81 Mg Tablet.dr, 81 MG PO DAILY, (Reported) Entered as Reported by: LORIE CARTER on 09/03/13 1315 Last Action: HELD on 11/08/181617 by WALDEMAR COE Atorvastatin Calcium (Atorvastatin Calcium) 10 Mg Tablet, 10 MG PO HS for FOR CHOLESTEROL, #30 Ref 0 (Reported) Entered as Reported by: DAVID CLAROS on 12/14/17 1838 Last Action: Continued on 11/08/181617 by WALDEMAR COE Bupropion Hcl (Wellbutrin Sr) 150 Mg Tablet.er, 1 TAB PO BID, #60 Ref 5 (Reported) Entered as Reported by: GERI BONILLA on 02/01/151708 Last Action: Continued on 11/08/181617 by WALDEMAR COE Buspirone Hcl (Buspirone Hcl) 10 Mg Tablet, 15 MG PO TID, #60 Ref 1 (Reported) Entered as Reported by: ELIZA CABALLERO on 06/25/171948 Last Action: Edited on 11/08/181646 by TAMIA SOLIS RPH Carbamazepine (Tegretol) 200 Mg Tablet, 200 MG PO QHS, (Reported) Entered as Reported by: TAMIA SOLIS RPH on 11/08/181646 Last Action: New Order on 11/08/181646 by TAMIA SOLIS RPH Cetirizine Hcl (Zyrtec) 10 Mg Tablet, 1 TAB PO DAILY, #30 Ref 2 (Reported) Entered as Reported by: HAKAN GABRIEL on 01/04/18 0743 Last Action: Continued on 11/08/181617 by WALDEMAR COE Cholecalciferol (Vitamin D3) (Vitamin D) 1,000 Unit Capsule, 1 CAP PO DAILY, #30 Ref 3 (Reported) Entered as Reported by: ELIZA CABALLERO on 06/25/171948 Last Action: Converted on 11/08/181617 by WALDEMAR COE Clopidogrel Bisulfate (Clopidogrel) 75 Mg Tablet, 1 TAB PO DAILY, #90 Ref 1 (Reported) Entered as Reported by: DAVID CLAROS on 12/14/17 183 Last Action: Continued on 11/08/181617 by WALDEMAR COE Cyanocobalamin (Vitamin B-12) (Vitamin B-12) 1,000 Mcg Tablet, 1 TAB PO DAILY, #30 Ref 2 (Reported) Entered as Reported by: ELIZA CABALLERO on 06/25/171948 Last Action: Continued on 11/08/181617 by WALDEMAR COE Diclofenac Sodium (Voltaren) 100 Gm Gel..gram., 100 GM TP QID, (Reported) Entered as Reported by: CONSTANTINO BURGOS on 02/02/15 0724 Last Action: Continued on 11/08/181617 by WALDEMAR TANIYAO Duloxetine Hcl (Cymbalta) 60 Mg Capsule.dr, 60 MG PO DAILY, (Reported) Entered as Reported by: KIRILL YAÑEZ on 01/08/18 0021 Last Action: Converted on 11/08/181617 by WALDEMAR TERMO Erythromycin Base (Erythromycin) 250 Mg Capsule.dr, 125 MG PO BID, (Reported) Entered as Reported by: DAVID CLAROS on 12/14/171837 Last Action: Converted on 11/08/181617 by WALDEMAR TERMULO Fluticasone Propionate (Flonase Allergy Relief) 9.9 Ml [place].susp, 2 SPR NS DAILY, (Reported) Entered as Reported by: GERI BONILLA on 02/01/151717 Last Action: Converted on 11/08/181617 by WALDEMAR TANIYAO Insulin Aspart (Novolog) 100 Unit/1 Ml Cartridge, 15 UNIT SQ TIDAC, (Reported) Entered as Reported by: LORIE CARTER on 09/03/13 1315 Last Action: Converted on 11/08/181617 by [facility] Insulin Detemir (Levemir Flextouch) 100 Unit/1 Ml Insuln.pen, 80 UNIT SQ BID, (Reported) Entered as Reported by: CONSTANTINO BURGOS on 02/02/15 0724 Last Action: Converted on 11/08/181617 by WALDEMAR TANIYAO Ipratropium/Albuterol Sulfate (Duoneb 0.5-3(2.5) Mg/3 Ml) 3 Ml Ampul.neb, 3 ML NEB TID, (Reported) Entered as Reported by: DAVID CLAROS on 12/14/171837 Last Action: Continued on 11/08/181617 by WALDEMAR TANIYAO Lisinopril (Lisinopril) 5 Mg Tablet, 1 TAB PO DAILY, #30 Ref 5 (Reported) Entered as Reported by: ELIZA CABALLERO on 06/25/171948 Last Action: Converted on 11/08/181617 by WALDEMAR TERMO Metformin Hcl (Metformin Hcl Er) 500 Mg Tab.er.24, 1,000 MG PO BIDAC, (Reported) Entered as Reported by: LORIE CARTER on 09/03/13 1315 Last Action: Converted on 11/08/181617 by WALDEMAR COE Metoprolol Succinate (Metoprolol Succinate ( Xl )) 25 Mg Tab.er.24h, 12.5 MG PO DAILY for FOR HYPERTENSION, #30 Ref 0 (Reported) Entered as Reported by: TAMIA SOLIS RPH on 11/08/181646 Last Action: New Order on 11/08/181646 by TAMIA SOLIS RPH Mirtazapine (Mirtazapine) 15 Mg Tablet, 30 MG PO QHS, #30 Ref 3 (Reported) Entered as Reported by: ELIZA CABALLERO on 06/25/171948 Last Action: Edited on 11/08/181647 by TAMIA SOLIS RPH Multivitamin (Multivitamins) 1 Each Tablet, 1 TAB PO DAILY, #90 Ref 3 (Reported) Entered as Reported by: ELIZA CABALLERO on 06/25/171948 Last Action: Converted on 11/08/181617 by WALDEMAR COE Nortriptyline Hcl (Nortriptyline Hcl) 25 Mg Capsule, 50 MG PO HS, (Reported) Entered as Reported by: DAVID CLAROS on 12/14/171837 Last Action: Continued on 11/08/181617 by WALDEMAR COE [place]-3 Fatty Acids/Fish Oil (Fish Oil 1,000 Mg Capsule) 1 Each Capsule, 1 EACH PO TID, (Reported) Entered as Reported by: KIRILL YAÑEZ on 01/08/18 0021 Last Action: Continued on 11/08/181617 by WALDEMAR COE Pantoprazole Sodium (Protonix) 20 Mg Tablet.dr, 40 MG PO DAILY, (Reported) Entered as Reported by: DAVID CLAROS on 12/14/171837 Last Action: Converted on 11/08/181617 by WALDEMAR COE Ranitidine Hcl (Ranitidine Hcl) 150 Mg Tablet, 150 MG PO DAILY, (Reported) Entered as Reported by: DAVID CLAROS on 12/14/171837 Last Action: HELD on 11/08/181617 by WALDEMAR COE Ropinirole Hcl (Ropinirole Hcl) 1 Mg Tablet, 1 MG PO QHS, (Reported) Entered as Reported by: LORIE CARTER on 09/03/13 1315 Last Action: Converted on 11/08/181617 by WALDEMAR COE Sodium Bicarbonate (Sodium Bicarbonate) 650 Mg Tablet, 1 TAB PO DAILY, #60 Ref 5 (Reported) Entered as Reported by: DAVID CLAROS on 12/14/17 1838 Last Action: Continued on 11/08/181617 by WALDEMAR COE Zonisamide (Zonisamide) 100 Mg Capsule, 100 MG PO TID, (Reported) Entered as Reported by: DAVID CLAROS on 12/14/17 1838 Last Action: Converted on 11/08/181617 by WALDEMAR COE Scheduled PRN Clonazepam (Klonopin) 0.5 Mg Tablet, 0.5 MG PO PRN BID PRN for ANXIETY / AGITATION, (Reported) Entered as Reported by: KIRILL YAÑEZ on 01/08/18 0021 Last Action: Edited on 11/08/181646 by TAMIA SOLIS RPH Miscellaneous Medications Loperamide Hcl (Loperamide) 2 Mg Capsule, 2 MG PO, (Reported) Entered as Reported by: HAKAN GABRIEL on 01/04/18 0743 Last Action: HELD on 11/08/181617 by WALDEMAR COE Discontinued Medications Amoxicillin/Potassium Clav (Amox Tr-K Clv 875-125 Mg Tab) 1 Each Tablet, 1 TAB PO DAILY, #10 Discontinued Reason: D/C Prescribed by: TANNER COMER on 01/13/18 1020 Last Action: Discontinued on 11/08/181646 by TAMIA SOLIS RPH Carbamazepine (Tegretol) 200 Mg Tablet, 1 TAB PO QHS, #60 Ref 1 (Reported) Discontinued Reason: CHANGE Entered as Reported by: GERI BONILLA on 02/01/15 1711 Last Action: Discontinued on 11/08/181646 by TAMIA SOLIS RPH Doxycycline Hyclate (Doxycycline Hyclate) 100 Mg Tablet, 100 MG PO BID, #10 Discontinued Reason: D/C Prescribed by: TANNER COMER on 01/13/18 1020 Last Action: Discontinued on 11/08/181646 by TAMIA SOLIS RPH Metoprolol Tartrate (Metoprolol Tartrate) 25 Mg Tablet, 0.5 TAB PO DAILY, #180 Ref 1 (Reported) Discontinued Reason: CHANGE Entered as Reported by: DAVID CLAROS on 12/14/178 Last Action: Discontinued on 11/08/18 1647 by TAMIA SOLIS [facility] Patient Instructions Patient Instructions > 30 min face to face TANNER COMER MD Nov 12, 2018 11:18
--- NOTE | 2018-11-12 12:11 | PDOC ---
MARLEEN MCGREGOR CENTRAL SCHEDULER 11/12/18 1211: CARDIO Progress Notes Date and Time Date of Service 11/12/18 Time of Evaluation 1110 Subjective Subjective: No Chest Pain, No Palpitations, Other (c/o weakness, left neck pain) Vitals Vitals Vital Signs Date Time Temp Pulse Resp B/P (MAP) Pulse Ox O2 Delivery O2 Flow Rate FiO2 11/12/18 11:45 95 Room Air 11/12/18 10:30 97.8 84 18 98/52 (67) 97.8 11/11/18 10:35 2.0 Weight Weight [ ] Input and Output Intake and Output Intake and Output 11/12/18 07:00 Intake Total 968.9 ml Output Total 500 ml Balance 468.9 ml Intake Oral 600 ml IV Total 368.9 ml Output Urine Total 500 ml # Voids 2 Laboratory Labs Laboratory Tests Test 11/11/18 16:52 11/11/18 21:03 11/12/18 06:42 11/12/18 07:38 Glucose (Fingerstick) 181 mg/dL (70-99) 165 mg/dL (70-99) 127 mg/dL (70-99) White Blood Count 14.3 x10^3/uL (4.0-11.0) Red Blood Count 2.94 x10^6/uL (3.50-5.40) Hemoglobin 8.8 g/dL (12.0-15.5) Hematocrit 26.9 % (36.0-47.0) Mean Corpuscular Volume 92 fL (79-100) Mean Corpuscular Hemoglobin 30 pg (25-35) Mean Corpuscular Hemoglobin Concent 33 g/dL (31-37) Red Cell Distribution Width 15.0 % (11.5-14.5) Platelet Count 367 x10^3/uL (140-400) Neutrophils (%) (Auto) 64 % (31-73) Lymphocytes (%) (Auto) 23 % (24-48) Monocytes (%) (Auto) 8 % (0-9) Eosinophils (%) (Auto) 4 % (0-3) Basophils (%) (Auto) 1 % (0-3) Neutrophils # (Auto) 9.1 x10^3/uL (1.8-7.7) Lymphocytes # (Auto) 3.3 x10^3/uL (1.0-4.8) Monocytes # (Auto) 1.2 x10^3/uL (0.0-1.1) Eosinophils # (Auto) 0.6 x10^3/uL (0.0-0.7) Basophils # (Auto) 0.1 x10^3/uL (0.0-0.2) Sodium Level 137 mmol/L (136-145) Potassium Level 4.3 mmol/L (3.5-5.1) Chloride Level 105 mmol/L (98-107) Carbon Dioxide Level 20 mmol/L (21-32) Anion Gap 12 (6-14) Blood Urea Nitrogen 22 mg/dL (7-20) Creatinine 1.2 mg/dL (0.6-1.0) Estimated GFR (Cockcroft-Gault) 44.0 Glucose Level 119 mg/dL (70-99) Calcium Level 8.6 mg/dL (8.5-10.1) Magnesium Level 1.4 mg/dL (1.8-2.4) Microbiology Micro Microbiology 11/08/18 Blood Culture - Preliminary, Resulted NO GROWTH AFTER 3 DAYS Physical Exam Chest: Symmetric LUNGS: Clear to Auscultation Heart: S1S2, RRR, no thrills, no rubs, no gallops, no murmurs Assessment Assessment 1. NSTEMI 2. CAD with severe restenosis of proximal LAD stent. S/p angioplasty of in- stent restenosis 3. Acute on chronic systolic heart failure; heart cath with elevated LVEDP 4. ICM; LVEF 40% 5. Hypertension; controlled 6. Hyperlipidemia 7. 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 seen and examined. Agree with above PRESALES SENIOR SPECIALIST note. She has had a large anterior wall infarct due to instent restenosis. We will determine on repeat echo tomorrow her extent of injury and discuss further options. I discussed the gravity of her situation with her and her . MARLEEN MCGREGOR APRN Nov 12, 2018 12:11 SHARYN BARFIELD MD Nov 12, 2018 18:12
[2018-11-12] MEDS ORDERED: MAGNESIUM SULFATE 2GM 50 ML IV ONE (13:00)
--- NOTE | 2018-11-12 13:14 | EKG ---
[facility] [address] [place] [id number] Test Date: 2018-11-12 Test Time: 13:05:15 Pat Name: ALDA CORRAL Department: Room: 252 1 Gender: F Funds Development Director: LUDA : [id number] Requested By: MARLEEN MCGREGOR Order Number: [id number] Reading MD: Measurements Intervals [place] Rate: 86 P: 38 RI: 172 QRS: -19 QRSD: 68 T: 111 QT: 366 QTc: 441 Interpretive Statements SINUS RHYTHM LEFTWARD AXIS CONSIDER LEFT VENTRICULAR HYPERTROPHY QRS(T) CONTOUR ABNORMALITY CONSISTENT WITH ANTEROSEPTAL INFARCT PROBABLY OLD CONSISTENT WITH INFERIOR INFARCT PROBABLY OLD ST & T ABNORMALITY, CONSIDER HIGH LATERAL ISCHEMIA OR LEFT VENTRICULAR STRAIN ABNORMAL ECG RI6.01 Unconfirmed report Compared to ECG 12/15/2017 10:26:33 Left-axis deviation now present Myocardial infarct finding now present T-wave abnormality now present Possible ischemia now present
[2018-11-12 14:35] VITALS: BP 106/56
[2018-11-12] MEDS ORDERED: FUROSEMIDE 20 MG/2 ML VIAL. IVP ONE (16:00)
--- NOTE | 2018-11-12 16:21 | NUR ---
SS following up with discharge planning. Discharge orders for home healthcare received. manager business, Anastasiia Handley, met with pt and discussed home healthcare. Pt reported that she was previously on services with [facility], ; fax [phone]. SS phoned and faxed discharge orders and referral to [facility]. Pt's RN notified.
--- NOTE | 2018-11-12 17:46 | PDOC ---
PROGRESS NOTES Chief Complaint Chief Complaint 1. NSTEMI, trop peak 25, better 2. CAD: see 2018 [facility] 3. Accelerated HTN 4. HLP 5. Nontraumatic mechanical fall: Sunday. 6. Obesity - BMI 34 7. Hypokalmeia 8. DM 2 on insulin 9. back pain, MS, History of Present Illness History of Present Illness discussed with DR. Price, pt needs to stay, acute systolic CHF, due to NSTEMI, will repeat echo in the AM, may have severely depressed EF start PT and OT Hgb A1c 8.6 Sliding scale insulin high-dose Colace stool softener Vitals Vitals Vital Signs Date Time Temp Pulse Resp B/P (MAP) Pulse Ox O2 Delivery O2 Flow Rate FiO2 11/12/18 14:35 98.5 87 18 106/56 (73) 93 Room Air 98.5 11/11/18 10:35 2.0 Physical Exam General: Alert, Cooperative, No acute distress Heart: Regular rate Lungs: Clear Abdomen: Normal bowel sounds Extremities: No clubbing, No cyanosis, No edema, Normal pulses, No tenderness/swelling Skin: No rashes, No breakdown, No significant lesion Labs LABS Laboratory Tests Test 11/11/18 21:03 11/12/18 06:42 11/12/18 07:38 11/12/18 12:12 Glucose (Fingerstick) 165 mg/dL (70-99) 127 mg/dL (70-99) 145 mg/dL (70-99) White Blood Count 14.3 x10^3/uL (4.0-11.0) Red Blood Count 2.94 x10^6/uL (3.50-5.40) Hemoglobin 8.8 g/dL (12.0-15.5) Hematocrit 26.9 % (36.0-47.0) Mean Corpuscular Volume 92 fL (79-100) Mean Corpuscular Hemoglobin 30 pg (25-35) Mean Corpuscular Hemoglobin Concent 33 g/dL (31-37) Red Cell Distribution Width 15.0 % (11.5-14.5) Platelet Count 367 x10^3/uL (140-400) Neutrophils (%) (Auto) 64 % (31-73) Lymphocytes (%) (Auto) 23 % (24-48) Monocytes (%) (Auto) 8 % (0-9) Eosinophils (%) (Auto) 4 % (0-3) Basophils (%) (Auto) 1 % (0-3) Neutrophils # (Auto) 9.1 x10^3/uL (1.8-7.7) Lymphocytes # (Auto) 3.3 x10^3/uL (1.0-4.8) Monocytes # (Auto) 1.2 x10^3/uL (0.0-1.1) Eosinophils # (Auto) 0.6 x10^3/uL (0.0-0.7) Basophils # (Auto) 0.1 x10^3/uL (0.0-0.2) Sodium Level 137 mmol/L (136-145) Potassium Level 4.3 mmol/L (3.5-5.1) Chloride Level 105 mmol/L (98-107) Carbon Dioxide Level 20 mmol/L (21-32) Anion Gap 12 (6-14) Blood Urea Nitrogen 22 mg/dL (7-20) Creatinine 1.2 mg/dL (0.6-1.0) Estimated GFR (Cockcroft-Gault) 44.0 Glucose Level 119 mg/dL (70-99) Calcium Level 8.6 mg/dL (8.5-10.1) Magnesium Level 1.4 mg/dL (1.8-2.4) Test 11/12/18 17:14 Glucose (Fingerstick) 123 mg/dL (70-99) Assessment and Plan Assessmemt and Plan Problems Medical Problems: (1) Congestive heart failure Status: Acute (2) Hypokalemia Status: Acute (3) Hypomagnesemia Status: Acute (4) NSTEMI (non-ST elevated myocardial infarction) Status: Acute (5) Renal insufficiency Status: Acute (6) Severe sepsis Status: Acute (7) Uncontrolled diabetes mellitus Status: Acute Comment Review of Relevant I have reviewed the following items danisha (where applicable) has been applied. Labs Laboratory Tests Test 11/10/18 21:23 11/11/18 04:00 11/11/18 11:34 11/11/18 16:52 Glucose (Fingerstick) 267 mg/dL (70-99) 134 mg/dL (70-99) 181 mg/dL (70-99) Heparin Anti-Xa Act, Unfractionated 0.36 IU/mL (0.30-0.70) Test 11/11/18 21:03 11/12/18 06:42 11/12/18 07:38 11/12/18 12:12 Glucose (Fingerstick) 165 mg/dL (70-99) 127 mg/dL (70-99) 145 mg/dL (70-99) White Blood Count 14.3 x10^3/uL (4.0-11.0) Red Blood Count 2.94 x10^6/uL (3.50-5.40) Hemoglobin 8.8 g/dL (12.0-15.5) Hematocrit 26.9 % (36.0-47.0) Mean Corpuscular Volume 92 fL (79-100) Mean Corpuscular Hemoglobin 30 pg (25-35) Mean Corpuscular Hemoglobin Concent 33 g/dL (31-37) Red Cell Distribution Width 15.0 % (11.5-14.5) Platelet Count 367 x10^3/uL (140-400) Neutrophils (%) (Auto) 64 % (31-73) Lymphocytes (%) (Auto) 23 % (24-48) Monocytes (%) (Auto) 8 % (0-9) Eosinophils (%) (Auto) 4 % (0-3) Basophils (%) (Auto) 1 % (0-3) Neutrophils # (Auto) 9.1 x10^3/uL (1.8-7.7) Lymphocytes # (Auto) 3.3 x10^3/uL (1.0-4.8) Monocytes # (Auto) 1.2 x10^3/uL (0.0-1.1) Eosinophils # (Auto) 0.6 x10^3/uL (0.0-0.7) Basophils # (Auto) 0.1 x10^3/uL (0.0-0.2) Sodium Level 137 mmol/L (136-145) Potassium Level 4.3 mmol/L (3.5-5.1) Chloride Level 105 mmol/L (98-107) Carbon Dioxide Level 20 mmol/L (21-32) Anion Gap 12 (6-14) Blood Urea Nitrogen 22 mg/dL (7-20) Creatinine 1.2 mg/dL (0.6-1.0) Estimated GFR (Cockcroft-Gault) 44.0 Glucose Level 119 mg/dL (70-99) Calcium Level 8.6 mg/dL (8.5-10.1) Magnesium Level 1.4 mg/dL (1.8-2.4) Test 11/12/18 17:14 Glucose (Fingerstick) 123 mg/dL (70-99) Laboratory Tests Test 11/11/18 21:03 11/12/18 06:42 11/12/18 07:38 11/12/18 12:12 Glucose (Fingerstick) 165 mg/dL (70-99) 127 mg/dL (70-99) 145 mg/dL (70-99) White Blood Count 14.3 x10^3/uL (4.0-11.0) Red Blood Count 2.94 x10^6/uL (3.50-5.40) Hemoglobin 8.8 g/dL (12.0-15.5) Hematocrit 26.9 % (36.0-47.0) Mean Corpuscular Volume 92 fL (79-100) Mean Corpuscular Hemoglobin 30 pg (25-35) Mean Corpuscular Hemoglobin Concent 33 g/dL (31-37) Red Cell Distribution Width 15.0 % (11.5-14.5) Platelet Count 367 x10^3/uL (140-400) Neutrophils (%) (Auto) 64 % (31-73) Lymphocytes (%) (Auto) 23 % (24-48) Monocytes (%) (Auto) 8 % (0-9) Eosinophils (%) (Auto) 4 % (0-3) Basophils (%) (Auto) 1 % (0-3) Neutrophils # (Auto) 9.1 x10^3/uL (1.8-7.7) Lymphocytes # (Auto) 3.3 x10^3/uL (1.0-4.8) Monocytes # (Auto) 1.2 x10^3/uL (0.0-1.1) Eosinophils # (Auto) 0.6 x10^3/uL (0.0-0.7) Basophils # (Auto) 0.1 x10^3/uL (0.0-0.2) Sodium Level 137 mmol/L (136-145) Potassium Level 4.3 mmol/L (3.5-5.1) Chloride Level 105 mmol/L (98-107) Carbon Dioxide Level 20 mmol/L (21-32) Anion Gap 12 (6-14) Blood Urea Nitrogen 22 mg/dL (7-20) Creatinine 1.2 mg/dL (0.6-1.0) Estimated GFR (Cockcroft-Gault) 44.0 Glucose Level 119 mg/dL (70-99) Calcium Level 8.6 mg/dL (8.5-10.1) Magnesium Level 1.4 mg/dL (1.8-2.4) Test 11/12/18 17:14 Glucose (Fingerstick) 123 mg/dL (70-99) Microbiology 11/08/18 Blood Culture - Preliminary, Resulted NO GROWTH AFTER 3 DAYS Medications Current Medications Heparin Sodium/ Dextrose 500 ml @ 0 mls/hr CONT PRN IV SEE I/O RECORD Last administered on 11/10/18at 01:08; Start 11/08/18 at 16:00; Stop 11/11/18 at 10:56; Status DC Heparin Sodium (Porcine) (Heparin Sodium) 1,650 unit PRN Q6HRS PRN IV FOR UFH LEVEL LESS THAN 0.2 Last administered on 11/09/18at 08:15; Start 11/08/18 at 16:00; Stop 11/11/18 at 10:56; Status DC Heparin Sodium (Porcine) (Heparin Sodium) 4,000 unit 1X ONCE IV Last administered on 11/08/18at 16:09; Start 11/08/18 at 16:15; Stop 11/08/18 at 16:16; Status DC Nitroglycerin/ Dextrose 250 ml @ 0 mls/hr 1X ONCE IV Last administered on 11/08/18at 16:41; Start 11/08/18 at 16:15; Stop 11/08/18 at 16:16; Status DC Labetalol HCl (Normodyne Iv Push) 20 mg 1X ONCE IVP Last administered on 11/08/18at 17:41; Start 11/08/18 at 16:15; Stop 11/08/18 at 16:16; Status DC Piperacillin Sod/ Tazobactam Sod 3.375 gm/Sodium Chloride 50 ml @ 100 mls/hr 1X ONCE IV Last administered on 11/08/18at 16:55; Start 11/08/18 at 16:15; Stop 11/08/18 at 16:44; Status DC Nitroglycerin/ Dextrose 250 ml @ 0 mls/hr 1X ONCE IV ; Start 11/08/18 at 16:15; Stop 11/08/18 at 16:16; Status UNV Potassium Chloride (Klor-Con) 40 meq 1X ONCE PO Last administered on 11/08/18at 16:58; Start 11/08/18 at 16:15; Stop 11/08/18 at 16:16; Status DC Magnesium Sulfate/ Dextrose 100 ml @ 25 mls/hr 1X ONCE IV Last administered on 11/08/18at 16:55; Start 11/08/18 at 16:15; Stop 11/08/18 at 20:14; Status DC Sodium Chloride 1,000 ml @ 60 mls/hr 1X ONCE IV Last administered on 11/08/18at 17:47; Start 11/08/18 at 16:15; Stop 11/09/18 at 08:54; Status DC Albuterol Sulfate (Ventolin Neb Soln) 2.5 mg RTQID INH ; Start 11/08/18 at 20:00; Stop 11/09/18 at 08:27; Status DC Amlodipine Besylate (Norvasc) 5 mg DAILY PO Last administered on 11/12/18 08:41; Start 11/09/18 at 09:00 Ascorbic Acid (Vitamin C) 500 mg BID PO Last administered on 11/12/18 08:45; Start 11/08/18 at 21:00 Atorvastatin Calcium (Lipitor) 10 mg HS PO Last administered on 11/11/18 22:46; Start 11/08/18 at 21:00 Bupropion HCl (Wellbutrin Sr) 150 mg BID PO Last administered on 11/12/18 08:44; Start 11/08/18 at 21:00 Buspirone HCl (Buspar) 15 mg TID PO Last administered on 11/12/18 14:06; Start 11/08/18 at 21:00 Carbamazepine (TEGretol XR) 200 mg QHS PO Last administered on 11/11/18 23:55; Start 11/08/18 at 21:00 Cetirizine HCl (ZyrTEC) 10 mg DAILY PO Last administered on 11/12/18 08:44; Start 11/09/18 at 09:00 Clonazepam (KlonoPIN) 0.5 mg PRN TID PRN PO ANXIETY / AGITATION Last administered on 11/11/18 11:05; Start 11/08/18 at 21:00 Clopidogrel Bisulfate (Plavix) 75 mg DAILY PO Last administered on 11/10/18 08:48; Start 11/09/18 at 09:00; Stop 11/12/18 at 02:16; Status DC Cyanocobalamin (Vitamin B-12) 1,000 mcg DAILY PO Last administered on 11/12/18 08:43; Start 11/09/18 at 09:00 Diclofenac Sodium (Voltaren) 100 mac QID TP Last administered on 11/12/18 12:46; Start 11/08/18 at 17:00 Albuterol/ Ipratropium (Duoneb) 3 ml TID NEB Last administered on 11/12/18 11:42; Start 11/08/18 at 21:00 Metoprolol Succinate (Toprol Xl) 12.5 mg DAILY PO Last administered on 11/12/18 08:42; Start 11/09/18 at 09:00 Nortriptyline HCl (Pamelor) 50 mg HS PO Last administered on 11/11/18 22:46; Start 11/08/18 at 21:00 Fish Oil (Fish Oil) 1,000 mg DAILY PO Last administered on 11/12/18 08:42; Start 11/09/18 at 09:00 Sodium Bicarbonate (Sodium Bicarbonate) 650 mg DAILY PO Last administered on 11/12/18 08:43; Start 11/09/18 at 09:00 Vitamin D (Vitamin D3) 1,000 unit DAILY PO Last administered on 11/12/18 08:40; Start 11/09/18 at 09:00 Duloxetine HCl (Cymbalta) 60 mg DAILY PO Last administered on 11/12/18 08:45; Start 11/09/18 at 09:00 Erythromycin (E-Mycin) 125 mg BID PO Last administered on 11/12/18 10:17; Start 11/08/18 at 21:00 Fluticasone Propionate (Flonase) 2 spray DAILY NS Last administered on 08:46; Start 11/09/18 at 09:00 Insulin Human Lispro (HumaLOG) 15 units TIDWMEALS SQ Last administered on 11/12/18 12:54; Start 11/08/18 at 17:00 Insulin Glargine (Lantus) 80 units Q12HR SQ ; Start 11/08/18 at 21:00; Stop 11/08/18 at 21:00; Status DC Lisinopril (Prinivil) 5 mg DAILY PO Last administered on 11/12/18 08:43; Start 11/09/18 at 09:00 Metformin HCl (Glucophage Xr) 1,000 mg BIDWMEALS PO Last administered on 11/12/18 08:45; Start 11/08/18 at 17:00 Mirtazapine (Remeron) 15 mg QHS PO Last administered on 11/11/18 22:47; Start 11/08/18 at 21:00 Multivitamins (Thera M Plus) 1 tab DAILY PO Last administered on 11/12/18 08:41; Start 11/09/18 at 09:00 Pantoprazole Sodium (Protonix) 40 mg DAILYAC PO Last administered on 11/12/18 08:41; Start 11/09/18 at 07:30 Ropinirole HCl (Requip) 1 mg QHS PO Last administered on 11/11/18 23:04; Start 11/08/18 at 21:00 Zonisamide (Zonegran) 100 mg TID PO Last administered on 11/12/18 14:07; Start 11/08/18 at 21:00 Insulin Human Lispro (HumaLOG) 0-9 UNITS TIDWMEALS SQ Last administered on 11/11/18at 17:07; Start 11/08/18 at 17:00 Dextrose (Dextrose 50%-Water Syringe) 12.5 gm PRN Q15MIN PRN IV SEE COMMENTS; Start 11/08/18 at 16:30 Dextrose (Dextrose 50%-Water Syringe) 12.5 gm PRN Q15MIN PRN IV SEE COMMENTS; Start 11/08/18 at 16:30; Status UNV Insulin Glargine (Lantus) 20 units QHS SQ Last administered on 11/11/18at 23:10; Start 11/08/18 at 21:00 Docusate Sodium (Colace) 100 mg DAILY PO Last administered on 11/12/18 08:43; Start 11/09/18 at 09:00 Info (Anti-Coagulation Monitoring By Pharmacy) 1 each PRN DAILY PRN MC SEE COMMENTS Last administered on 11/10/18 09:43; Start 11/09/18 at 08:00 Docusate Sodium (Colace) 100 mg PRN DAILY PRN PO HARD STOOLS; Start 11/09/18 at 11:00 Polyethylene Glycol (miraLAX PACKET) 17 gm PRN DAILY PRN PO CONSTIPATION, 1ST CHOICE; Start 11/09/18 at 11:00 Polyethylene Glycol (miraLAX PACKET) 17 gm 1X ONCE PO Last administered on 11/09/18 11:08; Start 11/09/18 at 11:00; Stop 11/09/18 at 11:02; Status DC Acetaminophen/ Aspirin/Caffeine (Excedrin Migraine) 1 tab PRN Q6HRS PRN PO MIGRAINE HEADACHE Last administered on 11/10/18 11:01; Start 11/09/18 at 20:45 Oxycodone/ Acetaminophen (Percocet 7.5/ 325) 1 tab 1X ONCE PO Last administered on 11/09/18 21:59; Start 11/09/18 at 22:00; Stop 11/09/18 at 22:01; Status DC Albuterol Sulfate (Ventolin Neb Soln) 2.5 mg PRN Q4HRS PRN NEB SHORTNESS OF BREATH; Start 11/09/18 at 23:15 Lidocaine (Lidoderm) 1 patch DAILY TD Last administered on 11/12/18 08:49; Start 11/10/18 at 12:00 Miscellaneous (Lidoderm Patch Removal) 1 ea QHS MC Last administered on 11/11/18at 21:00; Start 11/10/18 at 21:00 Cyclobenzaprine HCl (Flexeril) 10 mg PRN Q6HRS PRN PO MUSCLE SPASMS Last administered on 11/11/18 22:53; Start 11/10/18 at 11:30 Oxycodone/ Acetaminophen (Percocet 5/325) 1 tab PRN Q4HRS PRN PO PAIN Last administered on 11/11/18at 17:04; Start 11/10/18 at 11:30 Sodium Chloride 1,000 ml @ 60 mls/hr [id number] IV Last administered on 11/11/18at 15:15; Start 11/11/18 at 08:00 Iodixanol (Visipaque 320) 100 ml STK-MED ONCE .ROUTE ; Start 11/11/18 at 08:32; Stop 11/11/18 at 08:33; Status DC Lidocaine HCl (Lidocaine 1% 20ml Vial) 20 ml STK-MED ONCE .ROUTE ; Start 11/11/18 at 08:32; Stop 11/11/18 at 08:33; Status DC Heparin Sodium/ Sodium Chloride 1,500 ml @ As Directed STK-MED ONCE .ROUTE ; Start 11/11/18 at 08:32; Stop 11/11/18 at 08:33; Status DC Fentanyl Citrate (Fentanyl 2ml Vial) 100 mcg STK-MED ONCE .ROUTE ; Start 11/11/18 at 08:56; Stop 11/11/18 at 08:57; Status DC Midazolam HCl (Versed) 5 mg STK-MED ONCE .ROUTE ; Start 11/11/18 at 08:56; Stop 11/11/18 at 08:57; Status DC Heparin Sodium/ Sodium Chloride (HEPARIN for ARTERIAL LINE FLUSH) 1,000 unit 1X ONCE IART Last administered on 11/11/18at 10:34; Start 11/11/18 at 09:30; Stop 11/11/18 at 09:31; Status DC Heparin Sodium/ Sodium Chloride (HEPARIN for ARTERIAL LINE FLUSH) 1,000 unit 1X ONCE IART Last administered on 11/11/18at 10:34; Start 11/11/18 at 09:30; Stop 11/11/18 at 09:31; Status DC Midazolam HCl (Versed) 5 mg 1X ONCE IV Last administered on 11/11/18 10:35; Start 11/11/18 at 09:30; Stop 11/11/18 at 09:31; Status DC Fentanyl Citrate (Fentanyl 2ml Vial) 100 mcg 1X ONCE IV Last administered on 11/11/18 10:35; Start 11/11/18 at 09:30; Stop 11/11/18 at 09:31; Status DC Iodixanol (Visipaque 320) 100 ml 1X ONCE IART Last administered on 11/11/18 10:33; Start 11/11/18 at 09:30; Stop 11/11/18 at 09:31; Status DC Lidocaine HCl (Lidocaine 1% 20ml Vial) 20 ml 1X ONCE INJ Last administered on 11/11/18at 10:33; Start 11/11/18 at 09:30; Stop 11/11/18 at 09:31; Status DC Info (CONTRAST GIVEN -- Rx MONITORING) 1 each PRN DAILY PRN MC SEE COMMENTS; Start 11/11/18 at 09:30; Stop 11/13/18 at 09:29 Bivalirudin (Angiomax) 250 mg STK-MED ONCE IV ; Start 11/11/18 at 09:51; Stop 11/11/18 at 09:52; Status DC Iodixanol (Visipaque 320) 100 ml STK-MED ONCE .ROUTE ; Start 11/11/18 at 09:55; Stop 11/11/18 at 09:56; Status DC Nitroglycerin (Nitroglycerin) 200 mcg 1X ONCE IART Last administered on 11/11/18at 10:35; Start 11/11/18 at 10:15; Stop 11/11/18 at 10:16; Status DC Bivalirudin (Angiomax) 250 mg 1X ONCE IV Last administered on 11/11/18at 10:36; Start 11/11/18 at 10:15; Stop 11/11/18 at 10:16; Status DC Clopidogrel Bisulfate (Plavix) 300 mg 1X ONCE PO Last administered on 11/11/18at 10:35; Start 11/11/18 at 10:30; Stop 11/11/18 at 10:31; Status DC Aspirin (Thrinacia Aspirin) 325 mg 1X ONCE PO Last administered on 11/11/18at 10:35; Start 11/11/18 at 10:30; Stop 11/11/18 at 10:31; Status DC Aspirin (Thrinacia Aspirin) 325 mg DAILYWBKFT PO ; Start 11/12/18 at 08:00; Stop 11/12/18 at 08:00; Status DC Clopidogrel Bisulfate (Plavix) 75 mg STK-MED ONCE .ROUTE ; Start 11/11/18 at 10:25; Stop 11/11/18 at 10:26; Status DC Aspirin (Juju Aspirin) 325 mg STK-MED ONCE .ROUTE ; Start 11/11/18 at 10:25; Stop 11/11/18 at 10:26; Status DC Sodium Chloride (Normal Saline Flush) 3 ml QSHIFT PRN IV AFTER MEDS AND BLOOD DRAWS; Start 11/11/18 at 11:00 Sodium Chloride 1,000 ml @ 60 mls/hr [id number] IV Last administered on 11/11/18at 11:11; Start 11/11/18 at 10:55; Stop 11/11/18 at 14:54; Status DC Aspirin (Ecotrin) 325 mg DAILYWBKFT PO Last administered on 11/12/18at 08:43; Start 11/12/18 at 08:00 Clopidogrel Bisulfate (Plavix) 75 mg DAILYWBKFT PO Last administered on 11/12/18at 08:46; Start 11/11/18 at 12:00 Acetaminophen (Tylenol) 650 mg PRN Q6HRS PRN PO MILD PAIN / TEMP; Start 11/11/18 at 11:00 Fentanyl Citrate (Fentanyl 2ml Vial) 50 mcg PRN Q1HR PRN IV MODERATE OR SEVERE PAIN; Start 11/11/18 at 11:00 Nitroglycerin (Nitrostat) 0.4 mg PRN Q5MIN PRN SL CHEST PAIN; Start 11/11/18 at 11:00 Amiodarone HCl 150 mg/Dextrose 103 ml @ 600 mls/hr 1X PRN PRN IV FOR V TACHYCARDIA 1ST CHOICE; Start 11/11/18 at 11:00 Lidocaine HCl (Lidocaine HCl 2% Abboject) 100 mg 1X PRN PRN IV FOR V TACHYCARDIA 2ND CHOICE; Start 11/11/18 at 11:00 Atropine Sulfate (ATROPINE 0.5mg SYRINGE) 0.5 mg PRN 1X PRN IV BRADYCARDIA; Start 11/11/18 at 11:00 Bisacodyl (Dulcolax Supp) 10 mg PRN DAILY PRN ID CONSTIPATION; Start 11/11/18 at 16:45 Bisacodyl (Dulcolax Tab) 5 mg PRN DAILY PRN PO CONSTIPATION, 2ND CHOICE; Start 11/11/18 at 16:45 Magnesium Sulfate 50 ml @ 25 mls/hr 1X ONCE IV Last administered on 11/12/18at 12:54; Start 11/12/18 at 13:00; Stop 11/12/18 at 14:59; Status DC Furosemide (Lasix) 20 mg 1X ONCE IVP ; Start 11/12/18 at 16:00; Stop 11/12/18 at 16:01; Status DC Active Scripts Active Reported Tegretol (Carbamazepine) 200 Mg Tablet 200 Mg PO QHS Metoprolol Succinate ( Xl ) (Metoprolol Succinate) 25 Mg Tab.er.24h 12.5 Mg PO DAILY Klonopin (Clonazepam) 0.5 Mg Tablet 0.5 Mg PO PRN BID PRN Fish Oil 1,000 Mg Capsule ([place]-3 Fatty Acids/Fish Oil) 1 Each Capsule 1 Each PO TID Cymbalta (Duloxetine Hcl) 60 Mg Capsule.dr 60 Mg PO DAILY Loperamide (Loperamide Hcl) 2 Mg Capsule 2 Mg PO Zyrtec (Cetirizine Hcl) 10 Mg Tablet 1 Tab PO DAILY Zonisamide 100 Mg Capsule 100 Mg PO TID Sodium Bicarbonate 650 Mg Tablet 1 Tab PO DAILY Ranitidine Hcl 150 Mg Tablet 150 Mg PO DAILY Protonix (Pantoprazole Sodium) 20 Mg Tablet.dr 40 Mg PO DAILY Nortriptyline Hcl 25 Mg Capsule 50 Mg PO HS Duoneb 0.5-3(2.5) Mg/3 Ml (Albuterol/Ipratropium) 3 Ml Ampul.neb 3 Ml NEB TID Erythromycin (Erythromycin Base) 250 Mg Capsule.dr 125 Mg PO BID Clopidogrel (Clopidogrel Bisulfate) 75 Mg Tablet 1 Tab PO DAILY Atorvastatin Calcium 10 Mg Tablet 10 Mg PO HS Multivitamins (Multivitamin) 1 Each Tablet 1 Tab PO DAILY Mirtazapine 15 Mg Tablet 30 Mg PO QHS Lisinopril 5 Mg Tablet 1 Tab PO DAILY Vitamin B-12 (Cyanocobalamin (Vitamin B-12)) 1,000 Mcg Tablet 1 Tab PO DAILY Vitamin D (Cholecalciferol (Vitamin D3)) 1,000 Unit Capsule 1 Cap PO DAILY Buspirone Hcl 10 Mg Tablet 15 Mg PO TID Ascorbic Acid 500 Mg Tablet 500 Mg PO BID Amlodipine Besylate 5 Mg Tablet 5 Mg PO DAILY Voltaren (Diclofenac Sodium) 100 Gm Gel..gram. 100 Gm TP QID Levemir Flextouch (Insulin Detemir) 100 Unit/1 Ml Insuln.pen 80 Unit SQ BID Flonase Allergy Relief (Fluticasone Propionate) 9.9 Ml [place].susp 2 Spr NS DAILY Wellbutrin Sr (Bupropion Hcl) 150 Mg Tablet.er 1 Tab PO BID Proair Hfa Inhaler (Albuterol Sulfate) 8.5 Gm Hfa.aer.ad 2 Puff IH QID Aspir 81 (Aspirin) 81 Mg Tablet.dr 81 Mg PO DAILY Metformin Hcl Er (Metformin Hcl) 500 Mg Tab.er.24 1,000 Mg PO BIDAC Ropinirole Hcl 1 Mg Tablet 1 Mg PO QHS Novolog (Insulin Aspart) 100 Unit/1 Ml Cartridge 15 Unit SQ TIDAC Vitals/I & O Vital Sign - Last 24 Hours 11/11/18 11/11/18 11/11/18 11/11/18 18:04 19:40 19:51 20:00 Temp 98.3 98.3 Pulse 80 Resp 20 18 B/P (MAP) 91/54 (66) Pulse Ox 95 96 O2 Delivery Room Air Room Air Room Air Room Air 11/11/18 11/12/18 11/12/18 11/12/18 22:50 03:20 06:50 07:40 Temp 98.5 98.3 98.1 98.5 98.3 98.1 Pulse 74 81 81 Resp 18 18 18 B/P (MAP) 97/53 (68) 94/52 (66) 115/57 (76) Pulse Ox 91 95 90 94 O2 Delivery Room Air Room Air Room Air Room Air 11/12/18 11/12/18 11/12/18 11/12/18 08:00 08:41 08:42 08:43 Pulse 92 92 92 B/P (MAP) 115/57 115/57 115/57 O2 Delivery Room Air 11/12/18 11/12/18 11/12/18 10:30 11:45 14:35 Temp 97.8 98.5 97.8 98.5 Pulse 84 87 Resp 18 18 B/P (MAP) 98/52 (67) 106/56 (73) Pulse Ox 93 95 93 O2 Delivery Room Air Room Air Room Air Intake and Output 11/11/18 11/11/18 11/12/18 15:00 23:00 07:00 Intake Total 276 ml 292.9 ml 400 ml Output Total 100 ml 400 ml Balance 276 ml 192.9 ml 0 ml TANNER COMER MD Nov 12, 2018 17:45
[2018-11-12] MEDS: ASA/APAP/CAFFEINE 250/250/65MG TABLET. PO PRN (18:44)
[2018-11-12 19:44] VITALS: BP 107/56
[2018-11-12] MEDS: NORTRIPTYLINE 25 MG CAPSULE PO SCH (20:47)
[2018-11-12] MEDS: rOPINIRole 1 MG TABLET. PO SCH (20:48)
[2018-11-12] MEDS: ATORVASTATIN CALCIUM 10 MG TABLET. PO SCH (20:48)
[2018-11-12] MEDS: MIRTAZAPINE 15 MG TABLET PO SCH (20:49)
[2018-11-12] MEDS: INSULIN GLARGINE 300 UNITS/3 ML INSULN.PEN. SQ SCH (20:58)
[2018-11-12] MEDS: PATCH REMOVAL. MC SCH (20:59)
[2018-11-12] MEDS: CYCLOBENZAPRINE 10 MG TABLET. PO PRN (23:02)
[2018-11-12] MEDS: oxyCODONE/APAP 5/325 1 TAB TABLET PO PRN (23:02)
[2018-11-12 23:35] VITALS: BP 139/65
[2018-11-13 03:10] VITALS: BP 111/61
[2018-11-13 07:00] VITALS: BP 125/68
[2018-11-13] MEDS: IPRATRPIUM/ALBUTEROL 0.5/2.5MG 3 ML NEBU. NEB SCH (07:40)
[2018-11-13] MEDS: metFORMIN XR 500 MG TAB.ER.24H PO SCH (08:00)
[2018-11-13] MEDS: INSULIN LISPRO 300 UNITS/3 ML INSULN.PEN. SQ SCH ×4 (08:00→13:34)
[2018-11-13] MEDS: CYANOCOBALAMIN (VITAMIN B-12) 1,000 MCG TABLET. PO SCH (08:28)
[2018-11-13] MEDS: ZONISAMIDE 100 MG CAPSULE. PO SCH ×2 (08:28→13:25)
[2018-11-13] MEDS: DOCUSATE SODIUM 100 MG CAPSULE. PO SCH (08:28)
[2018-11-13] MEDS: ASCORBIC ACID 500 MG TABLET PO SCH (08:29)
[2018-11-13] MEDS: buPROPion SR 150 MG TABLET.SA PO SCH (08:29)
[2018-11-13] MEDS: ASPIRIN ENTERIC COATED 325 MG TABLET.DR. PO SCH (08:30)
[2018-11-13] MEDS: LISINOPRIL 5 MG TABLET. PO SCH (08:30)
[2018-11-13] MEDS: amLODIPine BESYLATE 5 MG TABLET PO SCH (08:30)
[2018-11-13] MEDS: MULTIVITAMIN with MINERAL TABLET. PO SCH (08:30)
[2018-11-13] MEDS: ERYTHROMYCIN BASE 250 MG TABLET PO SCH (08:30)
[2018-11-13] MEDS: DULoxetine HCL 30 MG CAPSULE.DR PO SCH (08:30)
[2018-11-13] MEDS: PANTOPRAZOLE 40 MG TABLET.DR. PO SCH (08:30)
[2018-11-13] MEDS: CHOLECALCIFEROL (VITAMIN D3) 1,000 UNIT TABLET PO SCH (08:30)
[2018-11-13] MEDS: SODIUM BICARBONATE 650 MG TABLET. PO SCH (08:30)
[2018-11-13] MEDS: CETIRIZINE HCL 10 MG TABLET. PO SCH (08:30)
[2018-11-13] MEDS: CLOPIDOGREL BISULFATE 75 MG TABLET PO SCH (08:30)
[2018-11-13] MEDS: METOPROLOL SUCC 24HR ER 25 MG TAB.ER.24H. PO SCH (08:31)
[2018-11-13] MEDS: busPIRone 10 MG TABLET. PO SCH ×2 (08:31→13:25)
[2018-11-13] MEDS: OMEGA-3 FATTY ACIDS/FISH OIL 1,000 MG CAPSULE. PO SCH (08:31)
[2018-11-13] MEDS: LIDOCAINE (700MG/PATCH) PATCH. TD SCH (08:32)
[2018-11-13] MEDS: IV NORMAL SALINE 1000ML BAG 1,000 ML IV SCH (08:32)
[2018-11-13] MEDS: FLUTICASONE 50MCG/NASAL SPRAY 16GM BOTTLE. NS SCH (08:37)
[2018-11-13] MEDS: DICLOFENAC SODIUM 1% TOPICAL GEL 100GM TUBE. TP SCH ×2 (08:37→13:25)
--- NOTE | 2018-11-13 08:59 | NUR ---
SS following up with discharge planning. SS phoned and faxed discharge orders and referral to [facility] on 11/12/2018. Pt did not discharge. Per pt's RN, cardiology wanted repeat echocardiogram. SS will continue to follow for discharge planning.
--- NOTE | 2018-11-13 09:59 | PDOC ---
PROGRESS NOTES Subjective Subjective She admits some easing of left sided neck area pain. Objective Objective Vital Signs Date Time Temp Pulse Resp B/P (MAP) Pulse Ox O2 Delivery O2 Flow Rate FiO2 11/13/18 08:31 91 125/68 11/13/18 08:00 Room Air 11/13/18 07:41 95 11/13/18 07:00 97.9 16 97.9 11/11/18 10:35 2.0 Intake and Output 11/13/18 06:59 Intake Total 1220 ml Output Total 375 ml Balance 845 ml Intake Oral 1220 ml Output Urine Total 375 ml Physical Exam Physical Exam She is alert,sitting in bedside chair and in no acute distress and she continues with tenderness to palpation over right cervical paraspinal and posterior shoulder girdle muscles and painfully limited cervical spine ROM. She remains independent with her mobility. Assessment Assessment Problems Medical Problems: (1) Acute on chronic systolic heart failure Status: Acute (2) Congestive heart failure Status: Acute (3) Hypokalemia Status: Acute (4) Hypomagnesemia Status: Acute (5) NSTEMI (non-ST elevated myocardial infarction) Status: Acute (6) Renal insufficiency Status: Acute (7) Severe sepsis Status: Acute (8) Uncontrolled diabetes mellitus Status: Acute Plan Plan of Care To arrange for home health or out patient physical therapy follow up if she agrees. Comment Review of Relevant I have reviewed the following items danisha (where applicable) has been applied. Labs Laboratory Tests Test 11/11/18 11:34 11/11/18 16:52 11/11/18 21:03 11/12/18 06:42 Glucose (Fingerstick) 134 mg/dL (70-99) 181 mg/dL (70-99) 165 mg/dL (70-99) White Blood Count 14.3 x10^3/uL (4.0-11.0) Red Blood Count 2.94 x10^6/uL (3.50-5.40) Hemoglobin 8.8 g/dL (12.0-15.5) Hematocrit 26.9 % (36.0-47.0) Mean Corpuscular Volume 92 fL (79-100) Mean Corpuscular Hemoglobin 30 pg (25-35) Mean Corpuscular Hemoglobin Concent 33 g/dL (31-37) Red Cell Distribution Width 15.0 % (11.5-14.5) Platelet Count 367 x10^3/uL (140-400) Neutrophils (%) (Auto) 64 % (31-73) Lymphocytes (%) (Auto) 23 % (24-48) Monocytes (%) (Auto) 8 % (0-9) Eosinophils (%) (Auto) 4 % (0-3) Basophils (%) (Auto) 1 % (0-3) Neutrophils # (Auto) 9.1 x10^3/uL (1.8-7.7) Lymphocytes # (Auto) 3.3 x10^3/uL (1.0-4.8) Monocytes # (Auto) 1.2 x10^3/uL (0.0-1.1) Eosinophils # (Auto) 0.6 x10^3/uL (0.0-0.7) Basophils # (Auto) 0.1 x10^3/uL (0.0-0.2) Sodium Level 137 mmol/L (136-145) Potassium Level 4.3 mmol/L (3.5-5.1) Chloride Level 105 mmol/L (98-107) Carbon Dioxide Level 20 mmol/L (21-32) Anion Gap 12 (6-14) Blood Urea Nitrogen 22 mg/dL (7-20) Creatinine 1.2 mg/dL (0.6-1.0) Estimated GFR (Cockcroft-Gault) 44.0 Glucose Level 119 mg/dL (70-99) Calcium Level 8.6 mg/dL (8.5-10.1) Magnesium Level 1.4 mg/dL (1.8-2.4) Test 11/12/18 07:38 11/12/18 12:12 11/12/18 17:14 11/12/18 20:22 Glucose (Fingerstick) 127 mg/dL (70-99) 145 mg/dL (70-99) 123 mg/dL (70-99) 134 mg/dL (70-99) Test 11/13/18 04:15 11/13/18 07:07 Magnesium Level 1.5 mg/dL (1.8-2.4) Glucose (Fingerstick) 149 mg/dL (70-99) Laboratory Tests Test 11/12/18 12:12 11/12/18 17:14 11/12/18 20:22 11/13/18 04:15 Glucose (Fingerstick) 145 mg/dL (70-99) 123 mg/dL (70-99) 134 mg/dL (70-99) Magnesium Level 1.5 mg/dL (1.8-2.4) Test 11/13/18 07:07 Glucose (Fingerstick) 149 mg/dL (70-99) Microbiology 11/08/18 Blood Culture - Preliminary, Resulted NO GROWTH AFTER 4 DAYS Medications Current Medications Heparin Sodium/ Dextrose 500 ml @ 0 mls/hr CONT PRN IV SEE I/O RECORD Last administered on 11/10/18at 01:08; Start 11/08/18 at 16:00; Stop 11/11/18 at 10:56; Status DC Heparin Sodium (Porcine) (Heparin Sodium) 1,650 unit PRN Q6HRS PRN IV FOR UFH LEVEL LESS THAN 0.2 Last administered on 11/09/18at 08:15; Start 11/08/18 at 16:00; Stop 11/11/18 at 10:56; Status DC Heparin Sodium (Porcine) (Heparin Sodium) 4,000 unit 1X ONCE IV Last administered on 11/08/18at 16:09; Start 11/08/18 at 16:15; Stop 11/08/18 at 16:16; Status DC Nitroglycerin/ Dextrose 250 ml @ 0 mls/hr 1X ONCE IV Last administered on 11/08/18at 16:41; Start 11/08/18 at 16:15; Stop 11/08/18 at 16:16; Status DC Labetalol HCl (Normodyne Iv Push) 20 mg 1X ONCE IVP Last administered on 11/08/18at 17:41; Start 11/08/18 at 16:15; Stop 11/08/18 at 16:16; Status DC Piperacillin Sod/ Tazobactam Sod 3.375 gm/Sodium Chloride 50 ml @ 100 mls/hr 1X ONCE IV Last administered on 11/08/18at 16:55; Start 11/08/18 at 16:15; Stop 11/08/18 at 16:44; Status DC Nitroglycerin/ Dextrose 250 ml @ 0 mls/hr 1X ONCE IV ; Start 11/08/18 at 16:15; Stop 11/08/18 at 16:16; Status UNV Potassium Chloride (Klor-Con) 40 meq 1X ONCE PO Last administered on 11/08/18 16:58; Start 11/08/18 at 16:15; Stop 11/08/18 at 16:16; Status DC Magnesium Sulfate/ Dextrose 100 ml @ 25 mls/hr 1X ONCE IV Last administered on 11/08/18 16:55; Start 11/08/18 at 16:15; Stop 11/08/18 at 20:14; Status DC Sodium Chloride 1,000 ml @ 60 mls/hr 1X ONCE IV Last administered on 11/08 17:47; Start 11/08/18 at 16:15; Stop 11/09/18 at 08:54; Status DC Albuterol Sulfate (Ventolin Neb Soln) 2.5 mg RTQID INH ; Start 11/08/18 at 20:00; Stop 11/09/18 at 08:27; Status DC Amlodipine Besylate (Norvasc) 5 mg DAILY PO Last administered on 11/13/18 08:30; Start 11/09/18 at 09:00 Ascorbic Acid (Vitamin C) 500 mg BID PO Last administered on 11/13/18 08:29; Start 11/08/18 at 21:00 Atorvastatin Calcium (Lipitor) 10 mg HS PO Last administered on 11/12/18 20:48; Start 11/08/18 at 21:00 Bupropion HCl (Wellbutrin Sr) 150 mg BID PO Last administered on 11/13/18 08:29; Start 11/08/18 at 21:00 Buspirone HCl (Buspar) 15 mg TID PO Last administered on 11/13/18 08:31; Start 11/08/18 at 21:00 Carbamazepine (TEGretol XR) 200 mg QHS PO Last administered on 11/12/18 20:48; Start 11/08/18 at 21:00 Cetirizine HCl (ZyrTEC) 10 mg DAILY PO Last administered on 11/13/18 08:30; Start 11/09/18 at 09:00 Clonazepam (KlonoPIN) 0.5 mg PRN TID PRN PO ANXIETY / AGITATION Last administered on 11/11/18 11:05; Start 11/08/18 at 21:00 Clopidogrel Bisulfate (Plavix) 75 mg DAILY PO Last administered on 11/10/18 08:48; Start 11/09/18 at 09:00; Stop 11/12/18 at 02:16; Status DC Cyanocobalamin (Vitamin B-12) 1,000 mcg DAILY PO Last administered on 11/13/18 08:28; Start 11/09/18 at 09:00 Diclofenac Sodium (Voltaren) 100 mac QID TP Last administered on 11/13/18 08:37; Start 11/08/18 at 17:00 Albuterol/ Ipratropium (Duoneb) 3 ml TID NEB Last administered on 11/13/18 07:40; Start 11/08/18 at 21:00 Metoprolol Succinate (Toprol Xl) 12.5 mg DAILY PO Last administered on 11/13/18 08:31; Start 11/09/18 at 09:00 Nortriptyline HCl (Pamelor) 50 mg HS PO Last administered on 11/12/18 20:47; Start 11/08/18 at 21:00 Fish Oil (Fish Oil) 1,000 mg DAILY PO Last administered on 11/13/18 08:31; Start 11/09/18 at 09:00 Sodium Bicarbonate (Sodium Bicarbonate) 650 mg DAILY PO Last administered on 11/13/18 08:30; Start 11/09/18 at 09:00 Vitamin D (Vitamin D3) 1,000 unit DAILY PO Last administered on 11/13/18 08:30; Start 11/09/18 at 09:00 Duloxetine HCl (Cymbalta) 60 mg DAILY PO Last administered on 11/13/18 08:30; Start 11/09/18 at 09:00 Erythromycin (E-Mycin) 125 mg BID PO Last administered on 11/13/18 08:30; Start 11/08/18 at 21:00 Fluticasone Propionate (Flonase) 2 spray DAILY NS Last administered on 11/13/18 08:37; Start 11/09/18 at 09:00 Insulin Human Lispro (HumaLOG) 15 units TIDWMEALS SQ Last administered on 11/13/18 08:42; Start 11/08/18 at 17:00 Insulin Glargine (Lantus) 80 units Q12HR SQ ; Start 11/08/18 at 21:00; Stop 11/08/18 at 21:00; Status DC Lisinopril (Prinivil) 5 mg DAILY PO Last administered on 11/13/18 08:30; Start 11/09/18 at 09:00 Metformin HCl (Glucophage Xr) 1,000 mg BIDWMEALS PO Last administered on 11/12/18 08:45; Start 11/08/18 at 17:00 Mirtazapine (Remeron) 15 mg QHS PO Last administered on 11/12/18 20:49; Start 11/08/18 at 21:00 Multivitamins (Thera M Plus) 1 tab DAILY PO Last administered on 11/13/18 08:30; Start 11/09/18 at 09:00 Pantoprazole Sodium (Protonix) 40 mg DAILYAC PO Last administered on 11/13/18 08:30; Start 11/09/18 at 07:30 Ropinirole HCl (Requip) 1 mg QHS PO Last administered on 11/12/18 20:48; Start 11/08/18 at 21:00 Zonisamide (Zonegran) 100 mg TID PO Last administered on 11/13/18 08:28; Start 11/08/18 at 21:00 Insulin Human Lispro (HumaLOG) 0-9 UNITS TIDWMEALS SQ Last administered on 11/11/18at 17:07; Start 11/08/18 at 17:00 Dextrose (Dextrose 50%-Water Syringe) 12.5 gm PRN Q15MIN PRN IV SEE COMMENTS; Start 11/08/18 at 16:30 Dextrose (Dextrose 50%-Water Syringe) 12.5 gm PRN Q15MIN PRN IV SEE COMMENTS; Start 11/08/18 at 16:30; Status UNV Insulin Glargine (Lantus) 20 units QHS SQ Last administered on 11/12/18 20:58; Start 11/08/18 at 21:00 Docusate Sodium (Colace) 100 mg DAILY PO Last administered on 11/13/18 08:28; Start 11/09/18 at 09:00 Info (Anti-Coagulation Monitoring By Pharmacy) 1 each PRN DAILY PRN MC SEE COMMENTS Last administered on 11/10/18at 09:43; Start 11/09/18 at 08:00 Docusate Sodium (Colace) 100 mg PRN DAILY PRN PO HARD STOOLS; Start 11/09/18 at 11:00 Polyethylene Glycol (miraLAX PACKET) 17 gm PRN DAILY PRN PO CONSTIPATION, 1ST CHOICE Last administered on 11/12/18at 17:37; Start 11/09/18 at 11:00 Polyethylene Glycol (miraLAX PACKET) 17 gm 1X ONCE PO Last administered on 11/09/18 11:08; Start 11/09/18 at 11:00; Stop 11/09/18 at 11:02; Status DC Acetaminophen/ Aspirin/Caffeine (Excedrin Migraine) 1 tab PRN Q6HRS PRN PO MIGRAINE HEADACHE Last administered on 11/12/18 18:44; Start 11/09/18 at 20:45 Oxycodone/ Acetaminophen (Percocet 7.5/ 325) 1 tab 1X ONCE PO Last administered on 11/09/18at 21:59; Start 11/09/18 at 22:00; Stop 11/09/18 at 22:01; Status DC Albuterol Sulfate (Ventolin Neb Soln) 2.5 mg PRN Q4HRS PRN NEB SHORTNESS OF BREATH; Start 11/09/18 at 23:15 Lidocaine (Lidoderm) 1 patch DAILY TD Last administered on 11/13/18 08:32; Start 11/10/18 at 12:00 Miscellaneous (Lidoderm Patch Removal) 1 ea QHS MC Last administered on 11/12/18at 20:59; Start 11/10/18 at 21:00 Cyclobenzaprine HCl (Flexeril) 10 mg PRN Q6HRS PRN PO MUSCLE SPASMS Last administered on 11/12/18at 23:02; Start 11/10/18 at 11:30 Oxycodone/ Acetaminophen (Percocet 5/325) 1 tab PRN Q4HRS PRN PO PAIN Last administered on 11/12/18 23:02; Start 11/10/18 at 11:30 Sodium Chloride 1,000 ml @ 60 mls/hr [id number] IV Last administered on 11/11/18at 15:15; Start 11/11/18 at 08:00 Iodixanol (Visipaque 320) 100 ml STK-MED ONCE .ROUTE ; Start 11/11/18 at 08:32; Stop 11/11/18 at 08:33; Status DC Lidocaine HCl (Lidocaine 1% 20ml Vial) 20 ml STK-MED ONCE .ROUTE ; Start 11/11/18 at 08:32; Stop 11/11/18 at 08:33; Status DC Heparin Sodium/ Sodium Chloride 1,500 ml @ As Directed STK-MED ONCE .ROUTE ; Start 11/11/18 at 08:32; Stop 11/11/18 at 08:33; Status DC Fentanyl Citrate (Fentanyl 2ml Vial) 100 mcg STK-MED ONCE .ROUTE ; Start 11/11/18 at 08:56; Stop 11/11/18 at 08:57; Status DC Midazolam HCl (Versed) 5 mg STK-MED ONCE .ROUTE ; Start 11/11/18 at 08:56; Stop 11/11/18 at 08:57; Status DC Heparin Sodium/ Sodium Chloride (HEPARIN for ARTERIAL LINE FLUSH) 1,000 unit 1X ONCE IART Last administered on 11/11/18at 10:34; Start 11/11/18 at 09:30; Stop 11/11/18 at 09:31; Status DC Heparin Sodium/ Sodium Chloride (HEPARIN for ARTERIAL LINE FLUSH) 1,000 unit 1X ONCE IART Last administered on 11/11/18 10:34; Start 11/11/18 at 09:30; Stop 11/11/18 at 09:31; Status DC Midazolam HCl (Versed) 5 mg 1X ONCE IV Last administered on 11/11/18 10:35; Start 11/11/18 at 09:30; Stop 11/11/18 at 09:31; Status DC Fentanyl Citrate (Fentanyl 2ml Vial) 100 mcg 1X ONCE IV Last administered on 11/11/18 10:35; Start 11/11/18 at 09:30; Stop 11/11/18 at 09:31; Status DC Iodixanol (Visipaque 320) 100 ml 1X ONCE IART Last administered on 11/11/18 10:33; Start 11/11/18 at 09:30; Stop 11/11/18 at 09:31; Status DC Lidocaine HCl (Lidocaine 1% 20ml Vial) 20 ml 1X ONCE INJ Last administered on 11/11/18at 10:33; Start 11/11/18 at 09:30; Stop 11/11/18 at 09:31; Status DC Info (CONTRAST GIVEN -- Rx MONITORING) 1 each PRN DAILY PRN MC SEE COMMENTS; Start 11/11/18 at 09:30; Stop 11/13/18 at 09:29; Status DC Bivalirudin (Angiomax) 250 mg STK-MED ONCE IV ; Start 11/11/18 at 09:51; Stop 11/11/18 at 09:52; Status DC Iodixanol (Visipaque 320) 100 ml STK-MED ONCE .ROUTE ; Start 11/11/18 at 09:55; Stop 11/11/18 at 09:56; Status DC Nitroglycerin (Nitroglycerin) 200 mcg 1X ONCE IART Last administered on 11/11/18at 10:35; Start 11/11/18 at 10:15; Stop 11/11/18 at 10:16; Status DC Bivalirudin (Angiomax) 250 mg 1X ONCE IV Last administered on 11/11/18at 10:36; Start 11/11/18 at 10:15; Stop 11/11/18 at 10:16; Status DC Clopidogrel Bisulfate (Plavix) 300 mg 1X ONCE PO Last administered on 11/11/18at 10:35; Start 11/11/18 at 10:30; Stop 11/11/18 at 10:31; Status DC Aspirin (Mobile Embrace Aspirin) 325 mg 1X ONCE PO Last administered on 11/11/18at 10:35; Start 11/11/18 at 10:30; Stop 11/11/18 at 10:31; Status DC Aspirin (Mobile Embrace Aspirin) 325 mg DAILYWBKFT PO ; Start 11/12/18 at 08:00; Stop 11/12/18 at 08:00; Status DC Clopidogrel Bisulfate (Plavix) 75 mg STK-MED ONCE .ROUTE ; Start 11/11/18 at 10:25; Stop 11/11/18 at 10:26; Status DC Aspirin (Juju Aspirin) 325 mg STK-MED ONCE .ROUTE ; Start 11/11/18 at 10:25; Stop 11/11/18 at 10:26; Status DC Sodium Chloride (Normal Saline Flush) 3 ml QSHIFT PRN IV AFTER MEDS AND BLOOD DRAWS; Start 11/11/18 at 11:00 Sodium Chloride 1,000 ml @ 60 mls/hr [id number] IV Last administered on 11/11/18at 11:11; Start 11/11/18 at 10:55; Stop 11/11/18 at 14:54; Status DC Aspirin (Ecotrin) 325 mg DAILYWBKFT PO Last administered on 11/13/18at 08:30; Start 11/12/18 at 08:00 Clopidogrel Bisulfate (Plavix) 75 mg DAILYWBKFT PO Last administered on 11/13/18at 08:30; Start 11/11/18 at 12:00 Acetaminophen (Tylenol) 650 mg PRN Q6HRS PRN PO MILD PAIN / TEMP; Start 11/11/18 at 11:00 Fentanyl Citrate (Fentanyl 2ml Vial) 50 mcg PRN Q1HR PRN IV MODERATE OR SEVERE PAIN; Start 11/11/18 at 11:00 Nitroglycerin (Nitrostat) 0.4 mg PRN Q5MIN PRN SL CHEST PAIN; Start 11/11/18 at 11:00 Amiodarone HCl 150 mg/Dextrose 103 ml @ 600 mls/hr 1X PRN PRN IV FOR V TACHYCARDIA 1ST CHOICE; Start 11/11/18 at 11:00 Lidocaine HCl (Lidocaine HCl 2% Abboject) 100 mg 1X PRN PRN IV FOR V TACHYCARDIA 2ND CHOICE; Start 11/11/18 at 11:00 Atropine Sulfate (ATROPINE 0.5mg SYRINGE) 0.5 mg PRN 1X PRN IV BRADYCARDIA; Start 11/11/18 at 11:00 Bisacodyl (Dulcolax Supp) 10 mg PRN DAILY PRN [place] CONSTIPATION; Start 11/11/18 at 16:45 Bisacodyl (Dulcolax Tab) 5 mg PRN DAILY PRN PO CONSTIPATION, 2ND CHOICE; Start 11/11/18 at 16:45 Magnesium Sulfate 50 ml @ 25 mls/hr 1X ONCE IV Last administered on 11/12/18at 12:54; Start 11/12/18 at 13:00; Stop 11/12/18 at 14:59; Status DC Furosemide (Lasix) 20 mg 1X ONCE IVP Last administered on 11/12/18at 17:34; Start 11/12/18 at 16:00; Stop 11/12/18 at 16:01; Status DC Lorazepam (Ativan Inj) 0.5 mg PRN Q8HRS PRN IV ANXIETY / AGITATION Last administered on 11/12/18at 18:47; Start 11/12/18 at 18:45 Active Scripts Active Reported Tegretol (Carbamazepine) 200 Mg Tablet 200 Mg PO QHS Metoprolol Succinate ( Xl ) (Metoprolol Succinate) 25 Mg Tab.er.24h 12.5 Mg PO DAILY Klonopin (Clonazepam) 0.5 Mg Tablet 0.5 Mg PO PRN BID PRN Fish Oil 1,000 Mg Capsule ([place]-3 Fatty Acids/Fish Oil) 1 Each Capsule 1 Each PO TID Cymbalta (Duloxetine Hcl) 60 Mg Capsule.dr 60 Mg PO DAILY Loperamide (Loperamide Hcl) 2 Mg Capsule 2 Mg PO Zyrtec (Cetirizine Hcl) 10 Mg Tablet 1 Tab PO DAILY Zonisamide 100 Mg Capsule 100 Mg PO TID Sodium Bicarbonate 650 Mg Tablet 1 Tab PO DAILY Ranitidine Hcl 150 Mg Tablet 150 Mg PO DAILY Protonix (Pantoprazole Sodium) 20 Mg Tablet.dr 40 Mg PO DAILY Nortriptyline Hcl 25 Mg Capsule 50 Mg PO HS Duoneb 0.5-3(2.5) Mg/3 Ml (Albuterol/Ipratropium) 3 Ml Ampul.neb 3 Ml NEB TID Erythromycin (Erythromycin Base) 250 Mg Capsule.dr 125 Mg PO BID Clopidogrel (Clopidogrel Bisulfate) 75 Mg Tablet 1 Tab PO DAILY Atorvastatin Calcium 10 Mg Tablet 10 Mg PO HS Multivitamins (Multivitamin) 1 Each Tablet 1 Tab PO DAILY Mirtazapine 15 Mg Tablet 30 Mg PO QHS Lisinopril 5 Mg Tablet 1 Tab PO DAILY Vitamin B-12 (Cyanocobalamin (Vitamin B-12)) 1,000 Mcg Tablet 1 Tab PO DAILY Vitamin D (Cholecalciferol (Vitamin D3)) 1,000 Unit Capsule 1 Cap PO DAILY Buspirone Hcl 10 Mg Tablet 15 Mg PO TID Ascorbic Acid 500 Mg Tablet 500 Mg PO BID Amlodipine Besylate 5 Mg Tablet 5 Mg PO DAILY Voltaren (Diclofenac Sodium) 100 Gm Gel..gram. 100 Gm TP QID Levemir Flextouch (Insulin Detemir) 100 Unit/1 Ml Insuln.pen 80 Unit SQ BID Flonase Allergy Relief (Fluticasone Propionate) 9.9 Ml [place].susp 2 Spr NS DAILY Wellbutrin Sr (Bupropion Hcl) 150 Mg Tablet.er 1 Tab PO BID Proair Hfa Inhaler (Albuterol Sulfate) 8.5 Gm Hfa.aer.ad 2 Puff IH QID Aspir 81 (Aspirin) 81 Mg Tablet.dr 81 Mg PO DAILY Metformin Hcl Er (Metformin Hcl) 500 Mg Tab.er.24 1,000 Mg PO BIDAC Ropinirole Hcl 1 Mg Tablet 1 Mg PO QHS Novolog (Insulin Aspart) 100 Unit/1 Ml Cartridge 15 Unit SQ TIDAC Vitals/I & O Vital Sign - Last 24 Hours 11/12/18 11/12/18 11/12/18 11/12/18 10:30 11:45 14:35 19:44 Temp 97.8 98.5 98.0 97.8 98.5 98.0 Pulse 84 87 85 Resp 18 18 17 B/P (MAP) 98/52 (67) 106/56 (73) 107/56 (73) Pulse Ox 93 95 93 98 O2 Delivery Room Air Room Air Room Air Room Air 11/12/18 11/12/18 11/12/18 11/12/18 19:50 19:51 23:02 23:35 Temp 98.2 98.2 Pulse 87 Resp 20 18 B/P (MAP) 139/65 (89) Pulse Ox 96 96 95 O2 Delivery Room Air Room Air Room Air Room Air 11/13/18 11/13/18 11/13/18 11/13/18 00:02 03:10 07:00 07:41 Temp 98.1 97.9 98.1 97.9 Pulse 84 91 Resp 18 19 16 B/P (MAP) 111/61 (78) 125/68 (87) Pulse Ox 95 97 91 95 O2 Delivery Room Air Room Air Room Air Room Air 11/13/18 11/13/18 11/13/18 11/13/18 08:00 08:30 08:30 08:31 Pulse 91 91 91 B/P (MAP) 125/68 125/68 125/68 O2 Delivery Room Air Intake and Output 11/12/18 11/12/18 11/13/18 14:59 22:59 06:59 Intake Total 1220 ml 0 ml Output Total 375 ml Balance 845 ml 0 ml CRISTOFER CLEMENS MD Nov 13, 2018 09:58
[2018-11-13] MEDS ORDERED: PERFLUTREN PROTEIN-A MICROSPHR 0.22 MG/ML 3 ML VIAL. IV ONE ×2 (10:54→11:15)
[2018-11-13 11:00] VITALS: BP 127/65
--- NOTE | 2018-11-13 12:24 | CARD ---
MR#: [id number] Date of Study: 11/13/2018 Ordering Physician: MARLEEN MCGREGOR, Referring Physician: WALDEMAR COE Tech: Ashley Stephens RDCS APPROVED REPORT EXAM: LIMITED Two-dimensional echocardiogram with contrast. Other Information Quality : AverageHR: 91bpm Rhythm : NSR INDICATION CAD Echo Enhancing Agent Indication: Endocardial border delineation Agent/Amount Used: Optison 1mL Mitral Valve MV E Peak Gr.13mmHgMV E Mean Gr.5mmHg Tricuspid Valve TR P. [id number] TR Peak Gr.[id number] LEFT VENTRICLE Technically limited study. The left ventricle is normal size. There is borderline concentric left lupe tricular hypertrophy. The ejection fraction is mild to moderately impaired. The Ejection Fraction is estimated at 40%. There is hypokinesis of the septal and apical region. RIGHT VENTRICLE The right ventricle is normal size. There is normal right ventricular wall thickness. The right ventr icular systolic function is normal. ATRIA The left atrium size is normal. The right atrium size is normal. The interatrial septum is intact wit h no evidence for an atrial septal defect or patent foramen ovale as noted on 2-D or Doppler imaging. AORTIC VALVE The aortic valve is not visualized on this limited follow up echo. MITRAL VALVE Mitral annular calcification is mild. There is no evidence of mitral valve prolapse. There is mild mi tral valve stenosis with a maximum pressure gradient of 13 mmHg and mean pressure gradient of 5 mmHg. Doppler and Color-flow revealed moderate mitral regurgitation. TRICUSPID VALVE The tricuspid valve is normal in structure and function. Doppler and Color Flow revealed mild tricusp id regurgitation. There is moderate pulmonary hypertension. The PA pressure was estimated at 48 mmHg. There is no tricuspid valve prolapse or vegetation. There is no tricuspid valve stenosis. PULMONIC VALVE The pulmonic valve is not visualized. GREAT VESSELS The aortic root is normal in size. The ascending aorta is normal in size. The IVC was not visualized. PERICARDIAL EFFUSION There is no evidence of significant pericardial effusion. Critical Notification Critical Value: No <Conclusion> Technically limited study. The left ventricle is normal size. The ejection fraction is mild to moderately impaired. The Ejection Fraction is estimated at 40%. There is hypokinesis of the septal and apical region. There is borderline concentric left ventricular hypertrophy. Doppler and Color-flow revealed moderate mitral regurgitation. There is mild mitral valve stenosis with a maximum pressure gradient of 13 mmHg and mean pressure gra dient of 5 mmHg. Doppler and Color Flow revealed mild tricuspid regurgitation. There is moderate pulmonary hypertension. The PA pressure was estimated at 48 mmHg. Signed by : Dexter Jaime MD Electronically Approved : 11/13/2018 12:23:38
[2018-11-13] MEDS ORDERED: TICA90TA PO (13:08)
--- NOTE | 2018-11-13 14:41 | NUR ---
Discharge Note: SHAKA CORRAL [facility] Discharge instructions, including extensive heart failure teaching, and discharge home medications reviewed with Patient and a copy given. All questions have been answered and understanding verbalized.
--- NOTE | 2018-11-13 15:01 | PDOC ---
CARDIO Progress Notes Date and Time Date of Service 11/13/18 Time of Evaluation 1140 Subjective Subjective: No Chest Pain, No Palpitations, Other (still weak. Left neck pain slightly better) Vitals Vitals Vital Signs Date Time Temp Pulse Resp B/P (MAP) Pulse Ox O2 Delivery O2 Flow Rate FiO2 11/13/18 11:00 98.4 84 16 127/65 (85) 93 Room Air 98.4 Weight Weight [ ] Input and Output Intake and Output Intake and Output 11/13/18 06:59 Intake Total 1220 ml Output Total 375 ml Balance 845 ml Intake Oral 1220 ml Output Urine Total 375 ml Laboratory Labs Laboratory Tests Test 11/12/18 17:14 11/12/18 20:22 11/13/18 04:15 11/13/18 07:07 Glucose (Fingerstick) 123 mg/dL (70-99) 134 mg/dL (70-99) 149 mg/dL (70-99) Magnesium Level 1.5 mg/dL (1.8-2.4) Test 11/13/18 11:42 Glucose (Fingerstick) 147 mg/dL (70-99) Microbiology Micro Microbiology 11/08/18 Blood Culture - Preliminary, Resulted NO GROWTH AFTER 4 DAYS Physical Exam HEENT: Neck Supple W Full Motion Chest: Symmetric LUNGS: Clear to Auscultation Heart: S1S2, RRR, no murmurs Abdomen: Soft N/T Assessment Assessment 1. NSTEMI 2. CAD with severe restenosis of proximal LAD stent. S/p angioplasty of in- stent restenosis 3. Acute on chronic systolic heart failure; heart cath with elevated LVEDP 4. ICM; Repeat echo showed LVEF of 40% with septal and apical hypokinesis. 5. Hypertension; controlled 6. Hyperlipidemia 7. Anemia; hgb stable at 8.8 Recommendations Secondary prevention Continue ASA. Stop Plavix. Start Brilinta as patient had in-stent restenosis on ASA and Plavix. Will need to monitor closely for bleeding Cardiac rehab May discharge from a CV standpoint and f/u in our [place] office with Dr. Price in 2 weeks as scheduled. MARLEEN MCGREGOR APRN Nov 13, 2018 15:01
--- NOTE | 2018-11-13 23:48 | DS ---
DATE OF DISCHARGE: 11/13/2018 ADMISSION DIAGNOSIS: Chest pain with elevated troponin. DISCHARGE DIAGNOSIS: Resolving acute myocardial infarction with troponin peak of 29 this. CONSULTS: Cardiology. PROCEDURES: Cardiac catheterization with balloon angioplasty of the re-stenotic LAD and stent decrease in the lesion to less than 10%. HOSPITAL COURSE: The patient is a pleasant elderly female, who basically presented with chest pain and was noted to have acute myocardial infarction. She was admitted. We took her to the laboratory analyst emergently. Dr. Ferraro placed a stent. She did well this morning. I saw and examined her. Her heart tones are normal. Lungs are clear. She was at her baseline. We plan to discharge. DISPOSITION: Home. ACTIVITY: As tolerated. DIET: Low sodium. MEDICATIONS: Please see the MRAD. TOTAL TIME: 33 minutes. NANCYL Ada NOBLES DO DR: RADHA/sarmad JOB#: [id number] / [id number]
[2018-11-14] MEDS ORDERED: TICAGRELOR 90 MG TABLET. PO SCH (09:00)
== END 2018-11-13 14:43 | disposition home health service (06) | DRG 250 ==
LOC: ER 14:56 → 2 NORTH 16:00 → 1 WEST ICU 17:33 → 2 SOUTH 11-11 15:03
PROVIDERS: ADMIT Internal Medicine; ATTEND Internal Medicine
PROC: 02703ZZ Dilation of Coronary Artery, One Artery, Percutaneous Approach (ICD-10-PCS; principal; 2018-11-11)
PROC: 4A023N7 Measurement of Cardiac Sampling and Pressure, Left Heart, Percutaneous Approach (ICD-10-PCS; 2018-11-11)
PROC: B2111ZZ Fluoroscopy of Multiple Coronary Arteries using Low Osmolar Contrast (ICD-10-PCS; 2018-11-11)
DX: T82.855A Stenosis of coronary artery stent, initial encounter (principal); I50.43 Acute on chronic combined systolic (congestive) and diastolic (congestive) heart failure; I21.4 Non-ST elevation (NSTEMI) myocardial infarction; R65.11 Systemic inflammatory response syndrome (SIRS) of non-infectious origin with acute organ dysfunction; E78.5 Hyperlipidemia, unspecified; J44.9 Chronic obstructive pulmonary disease, unspecified; I11.0 Hypertensive heart disease with heart failure; E78.00 Pure hypercholesterolemia, unspecified; E83.42 Hypomagnesemia; I25.10 Atherosclerotic heart disease of native coronary artery without angina pectoris; E66.01 Morbid (severe) obesity due to excess calories; E10.65 Type 1 diabetes mellitus with hyperglycemia; E66.9 Obesity, unspecified; E87.6 Hypokalemia; I25.5 Ischemic cardiomyopathy; D64.9 Anemia, unspecified; K57.90 Diverticulosis of intestine, part unspecified, without perforation or abscess without bleeding; K59.09 Other constipation; M19.90 Unspecified osteoarthritis, unspecified site; S13.4XXA Sprain of ligaments of cervical spine, initial encounter; W18.39XA Other fall on same level, initial encounter; Y83.8 Other surgical procedures as the cause of abnormal reaction of the patient, or of later complication, without mention of misadventure at the time of the procedure; Y93.89 Activity, other specified; Y99.8 Other external cause status; Y92.89 Other specified places as the place of occurrence of the external cause; Z79.4 Long term (current) use of insulin; Z90.81 Acquired absence of spleen; Z90.710 Acquired absence of both cervix and uterus; Z95.5 Presence of coronary angioplasty implant and graft; Z88.6 Allergy status to analgesic agent; Z88.8 Allergy status to other drugs, medicaments and biological substances; Z82.49 Family history of ischemic heart disease and other diseases of the circulatory system; Z68.34 Body mass index [BMI] 34.0-34.9, adult; Z90.49 Acquired absence of other specified parts of digestive tract
CPT/HCPCS: 92920; 93325; 93458; 99291; 99292; C8924; G0269; 36415; 71045; 72040; 80048; 80053; 80061; 82550; 82553; 82962; 83036; 83605; 83690; 83735; 83880; 84484; 85025; 85027; 85520; 85610; 87040; 87641; 93005; 93306; 93320; 94640; 94760; 96365; 96368; 96376; 99152; 99153; C1725; C1760; C1769; C1887; C1892; J0583; J1644; J1815; J1940; J2060; J2250; J2543; J3010; J3475; J3490; J7030; J7620; Q9956; Q9967; C1771

== ENCOUNTER → 2019-04-24 | Outpatient (CLI) | payer MEDICARE, OTHER ==
[2018-12-02 10:44] VITALS: BP 171/81
[~2019-04-24] MED LIST changes: +ARIP2TAB3 PO; +ASPI1TAB31 PO; +ATOR40TA59 PO; +BUPR150T6 PO; +BUSP15TA PO; +CARV6.2511 PO; +CEFD300C PO; -CETI10TA22 PO; +CETI10TA24 PO; +CYAN-25 PO; -CYAN10005 PO; +CYCL5TAB PO; -DULO20CA17 PO; +DULO20CA18 PO; -FENO43CA PO; +FENO43CA5 PO; +FURO20TA3 PO; +IOHEXOL 180 MG/ML 10 ML VIAL. ONE; +METO-239 PO; +NAPR-514 PO; +RANI150C PO; +SIMV10TA15 PO; -SIMV10TA3 PO; +SPIR25TA5 PO; +TICA90TA PO; -TIZA4TAB PO; +TIZA4TAB2 PO; +TRAM50TA PO; -ZONI100C PO; +ZONI100C26 PO; +methylPREDNISolone ACETATE 40 MG/ML VIAL. ONE; +methylPREDNISolone ACETATE 80 MG/ML VIAL. ONE
--- NOTE | 2019-04-24 13:40 | PAIN ---
DATE OF SERVICE: 04/24/2019 INITIAL CONSULTATION FOR PAIN CLINIC CHIEF COMPLAINT: Neck and left upper extremity pain. HISTORY OF PRESENT ILLNESS: This is a 73-year-old female who presents with history of pain in the base of the neck and left upper extremity for about 2 years now, worse over the past few months, increasing with activity, weightbearing using the left upper extremity, reaching over her head with the left arm. She has had physical therapy as well as currently doing exercises with the upper extremity. Physical therapy helps, but not more than about 50%. The patient reports it awakens her from sleep at least twice a night and does not affect her bowel or bladder control, does affect her ability to walk at times. She does have a walker which she uses, she reports occasionally, but does not have it with her today, only which is going longer distances. The patient reports no complete loss of function, but significant fatigability of the left upper extremity with repetitive use, especially with driving a car or lifting items or carrying things at her side. The patient reports it is a constant pain, is intermittent in intensity with radiation in the left arm, worse at night, aching in quality, radiating to the left arm, the left bicep and into the forearm as well and into the back and forearms with some tingling in the hands. It is hard to open jars and smaller items as well. The patient rates her disability rating from 0-10, 10 being the worst, is a 7 with recreational activities, 8 with social activity, 9 with self-care and 9 with life support activities. The patient did have a CT scan of the cervical spine showing multiple disk bulges at C3-C4, C4-C5, C5-C6 and C6-C7 with C7-T1 showing left uncovertebral hypertrophy and mild left foraminal stenosis, mild bilateral foraminal stenosis at C5-C6, C4-C5 and C3-C4. PAST MEDICAL HISTORY: Significant for diabetes, insulin-dependent; COPD, cigarette smoking, quit 20 years ago; hypertension; cardiovascular disease with stents placed; hypercholesterolemia; diverticulitis; arthritis. PREVIOUS SURGERIES: Include splenectomy, hysterectomy, rotator cuff repair, cholecystectomy, appendectomy, coronary stents placed x 2, spinal cord stimulator placed for low back pain, but now turned off. CURRENT MEDICATIONS: Include insulin, loperamide, Zyrtec, spironolactone, Zantac, naproxen, montelukast, tramadol, carvedilol, cyclobenzaprine, ascorbic acid, vitamin D, lisinopril, multivitamins daily, baby aspirin, nortriptyline and fish oil, zonisamide, mirtazapine, clonazepam, Cymbalta, Abilify, bupropion and metoprolol. ALLERGIES: THE PATIENT IS ALLERGIC TO MORPHINE, HYDROMORPHONE, METHOCARBAMOL, REGLAN. FAMILY HISTORY: Significant for mental health disease, heart disease and diabetes. SOCIAL HISTORY: The patient does not drink alcohol. Quit smoking many years ago. Does not use any illegal, illicit or recreational drugs. She is , lives with her spouse, lives locally in [place], [place]. REVIEW OF SYSTEMS: The patient's review of systems is positive for those items mentioned in history of present illness. All systems reviewed and otherwise negative. It is complete, full and well documented on the patient's chart. PHYSICAL EXAMINATION: VITAL SIGNS: The patient's blood pressure 103/48, pulse 79, respirations 18, temperature 98.1 degrees Fahrenheit, height is 4 feet 9 inches, weight is 145 pounds. GENERAL: The patient is awake, alert, oriented, appropriate, very pleasant demeanor. The patient is accompanied by her spouse. HEENT: Shows normocephalic, atraumatic. Extraocular movements are intact and symmetrical. Oral cavity: Mucous membranes moist and pink. Dentition is intact. NECK: Shows anterior throat supple without palpable lymphadenopathy noted. Swallow reflex symmetrical. CHEST: Shows normal on inspection. Breath sounds are clear bilaterally. HEART: Shows S1, S2 clear. No murmurs auscultated. ABDOMEN: Soft, nontender, nondistended. No palpable organomegaly is noted. No rebound or guarding demonstrated. BACK: Shows spine grossly in the midline. Cervical lordotic curvature is normal appearance. There is mild increase in thoracic kyphotic curvature, some mild flattening of lumbar lordotic curvature. No previous surgical scars are noted. Lumbar paraspinous muscle shows symmetrical on inspection, on palpation shows some moderate tenderness diffusely with surgical scar is noted. The patient also has palpable spinal cord stimulator in the low back as well. Cervical paraspinous muscle shows symmetrical on inspection, with no scarring in the cervical distribution posteriorly. Paraspinous musculature shows symmetrical with inspection and palpation shows moderate tenderness diffusely in the middle and lower distribution of paraspinous muscles, slightly more on the left than the right, but present bilaterally without asymmetry, no trigger points, no radiation of pain. The patient has good rotational motion of cervical spine, some minor tenderness with rotation to the left and with extension, but only mildly far right lateral rotation past 45 degrees is performed without difficulty and full forward flexion chin to chest. EXTREMITIES: The patient's upper extremities show deep tendon reflexes at 2+ in the biceps, triceps tendons. Motor exam is approximately 4 on a scale of 5 with left pen rider strength, bicep and tricep flexion and 5/5 on the right. Shoulder shrug is also asymmetric with higher ability to reach the right shoulder than the left, but strong and intact without loss of strength on resistance bilaterally. Some minor pain reported with resistance on the left side in the base of the neck and shoulder, into the lateral aspect of the deltoid, nontender on the right. This is true with abduction of the shoulders as well on the left side only with tenderness, but not on the right. The patient's peripheral pulses are 2+ radial distribution. Upper extremities are warm and dry to touch, equal in color and appearance. The patient's skin shows warm and dry, good turgor. No edema. No sores, rashes or bruising throughout. IMPRESSION: 1. This is a 73-year-old female with approximate 2-year history of increasing pain, base of the neck, left upper extremity in a radicular fashion in the left arm and shoulder. 2. CT scan of cervical spine as noted. 3. Diabetes. 4. Chronic obstructive pulmonary disease. 5. Hypertension. 6. Arthritis. PLAN: Options were discussed with the patient including conservative medical managements, physical therapies and interventional techniques as she is doing physical therapy exercises and physical therapy in the past, she is interested in interventional techniques. We discussed a cervical epidural steroid injection using description as well as anatomical models to describe the procedure. Risks were then discussed including, but not limited to bleeding, infection, possibility of epidural hematoma, subsequent neurological compromise, dural puncture, headaches, spinal cord and/or nerve damage, side effects of steroid medication and poor results regarding pain control. The patient understands and wished to proceed. The patient will return to clinic in approximately 2 weeks for followup. She was counseled as to return appointment, activity level and side effects to be aware of. DIAGNOSES: Cervical radiculopathy with cervical degenerative disk disease and cervical spinal stenosis. PROCEDURE: Cervical epidural steroid injection, translaminar approach C6-C7 level using C-arm fluoroscopic guidance under sterile prep and drape using local anesthetic. MEDICATION INJECTED: A total of 120 mg Depo-Medrol plus 5 mL of preservative-free normal saline and 2 mL of contrast. CONDITION AT DISCHARGE: Stable. The patient tolerated the procedure well, had no complications. OLU NEW MD DR: MAVERICK/sarmad JOB#: [id number] / [id number] NIDIA Sullivan MD
== END ==
LOC: PNCL 10:20
PROVIDERS: ATTEND Anesthesiology
DX: M50.123 Cervical disc disorder at C6-C7 level with radiculopathy (principal); E11.9 Type 2 diabetes mellitus without complications; J44.9 Chronic obstructive pulmonary disease, unspecified; I10 Essential (primary) hypertension; E78.00 Pure hypercholesterolemia, unspecified; Z87.39 Personal history of other diseases of the musculoskeletal system and connective tissue; Z79.4 Long term (current) use of insulin; Z90.49 Acquired absence of other specified parts of digestive tract; Z87.891 Personal history of nicotine dependence; Z90.710 Acquired absence of both cervix and uterus; Z95.5 Presence of coronary angioplasty implant and graft; Z88.6 Allergy status to analgesic agent; Z88.8 Allergy status to other drugs, medicaments and biological substances
CPT/HCPCS: 62321; J1030; J1040; Q9965

== ENCOUNTER → 2019-05-13 | Outpatient (CLI) | payer MEDICARE, OTHER ==
[2019-05-05 11:00] VITALS: BP 111/54
--- NOTE | 2019-05-13 14:53 | PAIN ---
DATE OF SERVICE: 05/13/2019 PROGRESS NOTE FOR PAIN CLINIC DIAGNOSES: Cervical radiculopathy with cervical degenerative disk disease and cervical spinal stenosis. HISTORY OF PRESENT ILLNESS: The patient is a 73-year-old female who returns for followup status post cervical epidural steroid injection x 1. The patient reports about 90% improvement for the first few days and the pain began to return in the base of the neck and more on the left shoulder than the right. The patient reports doing quite well. Her blood sugar was elevated. She took extra insulin sliding scale to adjust with this without difficulty. The patient reports the pain is returning now in the base of neck, bilateral shoulders, more on the left than the right. The patient reports it is a 9 on a scale of 10 at its worst over the past week, 7 on average, 5 at its least and is a 6 today. The patient reports it is aching and tight, radiating, more on the left than the right. The patient reports no new motor or sensory deficits. No new bowel or bladder incontinence or other complaints. PHYSICAL EXAMINATION: VITAL SIGNS: The patient's blood pressure is 135/64, pulse 77, respirations are 16, temperature 97.3 degrees Fahrenheit. Height 4 feet 9 inches, weight is 145 pounds. GENERAL: The patient is awake, alert, oriented, appropriate, very pleasant demeanor. HEENT: Shows normocephalic, atraumatic. Extraocular movements are intact and symmetrical. Oral cavity: Mucous membranes moist and pink. Dentition is intact. NECK: Neck shows anterior throat supple without palpable lymphadenopathy noted. Swallow reflex symmetrical. CHEST: Shows normal on inspection. Breath sounds are clear bilaterally. HEART: Shows S1, S2 clear. No murmurs auscultated. ABDOMEN: Soft, nontender, nondistended. No palpable organomegaly is noted. BACK: Shows spine grossly in the midline. Cervical paraspinous muscle shows normal cervical lordotic curvature. Cervical paraspinous muscles with palpation and moderately tender diffusely bilaterally in the middle and inferior aspect of the cervical paraspinous muscles into the superior medial trapezius, greater on the left than the right, but without specific radiation, without trigger points or abnormalities or asymmetry. The patient shows good rotational motion of cervical spine with somewhat limited guarding and rotation to the left greater than the right, greater than 45 degrees, full extension and flexion performed without significant pain reported. EXTREMITIES: Upper extremities show deep tendon reflexes 2+ in the biceps and triceps tendons. Motor exam is strong with approximately 4 on a scale of 5 with left and 5/5 on the right, sheet writer strength, bicep and tricep flexion. Peripheral pulses are 2+ radial distribution. No peripheral edema is noted bilaterally. PLAN: Options were discussed with the patient. The patient's old chart was reviewed as her current medication regimen updated. Current review of systems updated today as well. We will proceed with a second in the series of cervical epidural steroid injection today with fluoroscopic guidance. Risks were again discussed including, but not limited to bleeding, infection, possibility of epidural hematoma, subsequent neurological compromise, dural puncture, headaches, spinal cord and/or nerve damage, side effects of steroid medication and poor results regarding pain control. The patient understands and wished to proceed. The patient will return to clinic in approximately 2 weeks for followup. She was counseled on return appointment, activity level and side effects to be aware of. DIAGNOSES: Cervical radiculopathy with cervical degenerative disk disease and cervical spinal stenosis. PROCEDURE: Cervical epidural steroid injection, translaminar approach C6-C7 level using C-arm fluoroscopic guidance under sterile prep and drape using local anesthetic. MEDICATION INJECTED: A total of 120 mg Depo-Medrol plus 5 mL of preservative-free normal saline and 2 mL of contrast. CONDITION AT DISCHARGE: Stable. The patient tolerated the procedure well, had no complications. OLU NEW MD DR: MAVERICK/sarmad JOB#: [id number] / [id number]
== END ==
LOC: PNCL 09:54
PROVIDERS: ATTEND Anesthesiology
DX: M50.123 Cervical disc disorder at C6-C7 level with radiculopathy (principal); M48.02 Spinal stenosis, cervical region
CPT/HCPCS: 62321; J1030; J1040; Q9965

== ENCOUNTER → 2019-06-06 | Outpatient (CLI) | payer MEDICARE, OTHER ==
[2019-05-05 11:00] VITALS: BP 111/54
[~2019-06-06] MED LIST changes: +GALC120P SQ; -ROPI1TAB2 PO; +ROPI1TAB4 PO
--- NOTE | 2019-06-06 13:01 | PAIN ---
DATE OF SERVICE: 06/06/2019 PROGRESS NOTE FOR PAIN CLINIC DIAGNOSES: Cervical radiculopathy with cervical degenerative disk disease and cervical spinal stenosis. HISTORY OF PRESENT ILLNESS: The patient is a 73-year-old female who returns for followup status post cervical epidural steroid injections x 2. The patient reports about 98% improvement thus far, especially in the right upper extremity. The patient's right arm is doing much better. She is increasing her activity with greater ease and comfort, doing work activities, household activities, driving, using her upper extremities, her left side still has some significant pain, which is not nearly as bad as the right side, but is still present on the left side in the shoulder and upper extremity with radiating pain as well, but only moderately decreased. The patient reports it is aching and tight, radiating into the left arm. The right arm is doing much better, left arm is much more noticeable. The patient reports her pain is a 6 on a scale of 10 at its worst over the past week, 5 on average, 3 at its least and is a 5 today. The patient reports no new motor or sensory deficits, no new bowel or bladder incontinence or other complaints. PHYSICAL EXAMINATION: VITAL SIGNS: The patient's blood pressure is 143/75, pulse 96, respirations are 16, temperature 98.2 degrees Fahrenheit, height is 4 feet 9 inches, weight is 144 pounds. GENERAL: The patient is awake, alert, oriented, appropriate, very pleasant demeanor. The patient is accompanied by her . HEENT: Head shows normocephalic, atraumatic. Extraocular movements are intact and symmetrical. Oral cavity: Mucous membranes moist and pink. Dentition is intact. NECK: Shows anterior throat supple without palpable lymphadenopathy noted. Swallow reflex symmetrical. CHEST: Shows normal on inspection. Breath sounds are clear bilaterally. HEART: Shows S1, S2 clear. No murmurs auscultated. ABDOMEN: Soft, nontender, nondistended. No palpable organomegaly is noted. No rebound or guarding demonstrated. BACK: Shows spine grossly in the midline, normal appearing thoracic kyphosis, cervical lordotic curvature slightly flattened. Cervical paraspinous muscle shows symmetrical on inspection, with palpation shows some mild tenderness in the inferior aspect of the cervical paraspinous muscles, but only diffusely without significant radiation. The patient shows good rotational motion of cervical spine, both laterally as well as extension and flexion without significant increase in pain. EXTREMITIES: Upper extremities show deep tendon reflexes 2+ in the biceps and triceps tendons. Motor exam is 5/5 on the left with child life specialist strength of 4/5 on the right. Peripheral pulses are 2+ radial distribution. No peripheral edema bilaterally. Options were discussed with the patient. The patient's old chart was reviewed as her current medication regimen updated. Current review of system updated today as well. We will proceed with the third in the series of cervical epidural steroid injection today with fluoroscopic guidance. Risks were again discussed including, but not limited to bleeding, infection, possibility of epidural hematoma, subsequent neurological compromise, dural puncture, headaches, spinal cord and/or nerve damage, side effects of steroid medication and poor results regarding pain control. The patient understands and wished to proceed. The patient will return to clinic in approximately 2 weeks for followup. She was counseled on return appointment, activity level and side effects to be aware of. DIAGNOSES: Cervical radiculopathy with cervical degenerative disk disease and cervical spinal stenosis. PROCEDURE: Cervical epidural steroid injection, translaminar approach C6-C7 level using C-arm fluoroscopic guidance under sterile prep and drape using local anesthetic. MEDICATION INJECTED: A total of 120 mg Depo-Medrol plus 5 mL preservative-free normal saline and 2 mL of contrast. CONDITION AT DISCHARGE: Stable. The patient tolerated the procedure well, had no complications. OLU NEW MD DR: MAVERICK/sarmad JOB#: [id number] / [id number]
== END ==
LOC: PNCL 09:21
PROVIDERS: ATTEND Anesthesiology
DX: M50.123 Cervical disc disorder at C6-C7 level with radiculopathy (principal); M48.02 Spinal stenosis, cervical region
CPT/HCPCS: 62321; J1030; J1040; Q9965

== ENCOUNTER 2019-06-08 17:32 | Inpatient (IN) | payer MEDICARE, OTHER ==
[~2019-06-08] VITALS: Ht 144.8 cm; Wt 68.5 kg
[~2019-06-08 17:32] MED LIST changes: -GALC120P SQ; -IOHEXOL 180 MG/ML 10 ML VIAL. ONE; -methylPREDNISolone ACETATE 40 MG/ML VIAL. ONE; -methylPREDNISolone ACETATE 80 MG/ML VIAL. ONE
[2019-06-08 18:10] VITALS: BP 117/82
[2019-06-08] MEDS ORDERED: GALC120P SQ (18:24)
[2019-06-08] MEDS ORDERED: clonazePAM 0.5 MG TABLET PO PRN (18:45)
[2019-06-08] MEDS ORDERED: HEPARIN for IV BOLUS 10,000 UNIT/10 ML VIAL. IV PRN (18:45)
[2019-06-08] MEDS ORDERED: HEPARIN 25,000UTS/250ML PREMIX 250 ML IV PRN (18:45)
--- NOTE | 2019-06-08 19:18 | PDOC1 ---
History and Physical Date of Admission Date of Admission DATE: 06/08/19 TIME: 19:14 Source Source: Chart review, Patient History of Present Illness History of Present Illness Naomi was admitted to [facility] yesterday for acute worsening chest pain. Hx CAD, angina, ACS was eval with trop, and she did have ongoing pain, left chest and abd pain with pressure. Pain 6/10. and EKG changes noted on eval there. transfer here for futher CV eval. Past Medical History Cardiovascular: CAD, CHF, HTN, ND, Hyperlipidemia, Pulmonary hypertension Pulmonary: COPD GI: Other Heme/Onc: Anemia NOS Psych: No pertinent hx, Anxiety Musculoskeletal: No pain Rheumatologic: No pertinent hx Renal/: No pertinent hx Endocrine: No pertinent hx, Other Past Surgical History Past Surgical History: Appendectomy, Cholecystectomy, Tonsillectomy, Hysterectomy, Other Family History Family History: Coronary Artery Disease, Hypertension Family History: Parent Social History Smoke: No ALCOHOL: none Drugs: None Current Medications Current Medications Current Medications Heparin Sodium/ Dextrose 250 ml @ 7.9 mls/hr CONT PRN IV PER PROTOCOL; Start 06/08/19 at 18:45 Heparin Sodium (Porcine) (Heparin Sodium) 1,650 unit PRN Q6HRS PRN IV FOR UFH LEVEL LESS THAN 0.2; Start 06/08/19 at 18:45 Sodium Chloride 1,000 ml @ 100 mls/hr Q10H IV ; Start 06/08/19 at 18:45 Aripiprazole (Abilify) 2 mg DAILY PO ; Start 06/09/19 at 09:00 Ascorbic Acid (Vitamin C) 500 mg BID PO ; Start 06/08/19 at 21:00 Aspirin (Ecotrin) 81 mg DAILY PO ; Start 06/09/19 at 09:00 Atorvastatin Calcium (Lipitor) 80 mg QHS PO ; Start 06/08/19 at 21:00 Bupropion HCl (Wellbutrin Xl) 150 mg BID PO ; Start 06/08/19 at 21:00 Carbamazepine (TEGretol) 200 mg QHS PO ; Start 06/08/19 at 21:00 Carvedilol (Coreg) 6.25 mg BIDWMEALS PO ; Start 06/09/19 at 08:00 Clonazepam (KlonoPIN) 0.5 mg PRN BID PRN PO ANXIETY / AGITATION; Start 06/08/19 at 18:45; Status UNV Cyanocobalamin (Vitamin B-12) 1,000 mcg DAILY PO ; Start 06/09/19 at 09:00; Status UNV Diclofenac Sodium (Voltaren) 100 mac QID TP ; Start 06/08/19 at 21:00; Status UNV Furosemide (Lasix) 20 mg DAILY PO ; Start 06/09/19 at 09:00; Status UNV Albuterol/ Ipratropium (Duoneb) 3 ml TID NEB ; Start 06/08/19 at 21:00; Status UNV Lisinopril (Prinivil) 5 mg DAILY PO ; Start 06/09/19 at 09:00; Status UNV Metoprolol Succinate (Toprol Xl) 12.5 mg DAILY PO ; Start 06/09/19 at 09:00; Status UNV Mirtazapine (Remeron) 30 mg QHS PO ; Start 06/08/19 at 21:00; Status UNV Montelukast Sodium (Singulair) 10 mg HS PO ; Start 06/08/19 at 21:00; Status UNV Naproxen (Naprosyn) 500 mg BID PO ; Start 06/08/19 at 21:00; Status UNV Nortriptyline HCl (Pamelor) 50 mg HS PO ; Start 06/08/19 at 21:00; Status UNV Ropinirole HCl (Requip) 1 mg QHS PO ; Start 06/08/19 at 21:00; Status UNV Spironolactone (Aldactone) 25 mg DAILY PO ; Start 06/09/19 at 09:00; Status UNV Tramadol HCl (Ultram) 50 mg Q4HRS PRN PO PAIN; Start 06/08/19 at 18:45; Status UNV Zonisamide (Zonegran) 100 mg TID PO ; Start 06/08/19 at 21:00; Status UNV Non-Formulary Medication (Buspirone Hcl ) 15 mg TID PO ; Start 06/08/19 at 21:00; Status UNV Non-Formulary Medication (Cyclobenzaprine Hcl ) 5 mg TID PRN PO spasms; Start 06/08/19 at 18:45; Status UNV Non-Formulary Medication (Duloxetine Hcl (Cymbalta)) 120 mg DAILY PO ; Start 06/09/19 at 09:00; Status UNV Non-Formulary Medication (Fluticasone Propionate (Flonase Allergy Relief)) 2 spr DAILY NS ; Start 06/09/19 at 09:00; Status UNV Non-Formulary Medication (Insulin Aspart (Novolog)) 6 unit TIDAC SQ ; Start 06/09/19 at 07:30; Status UNV Non-Formulary Medication (Multivitamin (Multivitamins)) 1 tab DAILY PO ; Start 06/09/19 at 09:00; Status UNV Non-Formulary Medication (Pantoprazole Sodium (Protonix)) 40 mg DAILY PO ; Start 06/09/19 at 09:00; Status UNV Non-Formulary Medication (Ranitidine Hcl ) 150 mg DAILY PO ; Start 06/09/19 at 09:00; Status UNV Diphenhydramine HCl (Benadryl) 25 mg PRN QHS PRN PO INSOMNIA; Start 06/08/19 at 19:15; Status UNV Active Scripts Active Atorvastatin Calcium 40 Mg Tablet 80 Mg PO QHS Reported Emgality (Galcanezumab-Gnlm) 120 Mg/1 Ml Pen.injctr 120 Mg SQ QMONTH Furosemide 20 Mg Tablet 1 Tab PO DAILY Carvedilol (Carvedilol) 6.25 Mg Tablet 6.25 Mg PO BIDWMEALS Bupropion Xl (Bupropion Hcl) 150 Mg Tab.er.24h 150 Mg PO BID Tramadol Hcl 50 Mg Tablet 50 Mg PO Q4HRS PRN Cyclobenzaprine Hcl 5 Mg Tablet 5 Mg PO TID PRN Montelukast Sodium Tablet (Montelukast Sodium) 10 Mg Tablet 10 Mg PO HS Spironolactone 25 Mg Tablet 1 Tab PO DAILY Ranitidine Hcl 150 Mg Capsule 150 Mg PO DAILY Naproxen 500 Mg Tablet 1 Tab PO BID 30 Days Abilify (Aripiprazole) 2 Mg Tablet 2 Mg PO DAILY Buspirone Hcl 15 Mg Tablet 15 Mg PO TID Tegretol (Carbamazepine) 200 Mg Tablet 200 Mg PO QHS Metoprolol Succinate ( Xl ) (Metoprolol Succinate) 25 Mg Tab.er.24h 12.5 Mg PO DAILY Klonopin (Clonazepam) 0.5 Mg Tablet 0.5 Mg PO PRN BID PRN Fish Oil 1,000 Mg Capsule ([place]enderson-3 Fatty Acids/Fish Oil) 1 Each Capsule 1 Each PO TID Cymbalta (Duloxetine Hcl) 60 Mg Capsule.dr 120 Mg PO DAILY Loperamide (Loperamide Hcl) 2 Mg Capsule 2 Mg PO Zyrtec (Cetirizine Hcl) 10 Mg Tablet 1 Tab PO DAILY Zonisamide 100 Mg Capsule 100 Mg PO TID Protonix (Pantoprazole Sodium) 20 Mg Tablet.dr 40 Mg PO DAILY Nortriptyline Hcl 25 Mg Capsule 50 Mg PO HS Duoneb 0.5-3(2.5) Mg/3 Ml (Albuterol/Ipratropium) 3 Ml Ampul.neb 3 Ml NEB TID Multivitamins (Multivitamin) 1 Each Tablet 1 Tab PO DAILY Mirtazapine 15 Mg Tablet 30 Mg PO QHS Lisinopril 5 Mg Tablet 1 Tab PO DAILY Vitamin B-12 (Cyanocobalamin (Vitamin B-12)) 1,000 Mcg Tablet 1 Tab PO DAILY Vitamin D (Cholecalciferol (Vitamin D3)) 1,000 Unit Capsule 1 Cap PO DAILY Ascorbic Acid 500 Mg Tablet 500 Mg PO BID Voltaren (Diclofenac Sodium) 100 Gm Gel..gram. 100 Gm TP QID Levemir Flextouch (Insulin Detemir) 100 Unit/1 Ml Insuln.pen 36 Unit SQ BID Flonase Allergy Relief (Fluticasone Propionate) 9.9 Ml [place].susp 2 Spr NS DAILY Aspir 81 (Aspirin) 81 Mg Tablet.dr 81 Mg PO DAILY Ropinirole Hcl 1 Mg Tablet 1 Mg PO QHS Novolog (Insulin Aspart) 100 Unit/1 Ml Cartridge 6 Unit SQ TIDAC Allergies Allergies: Coded Allergies: grapefruit (Verified Allergy, Intermediate, 01/04/18) hydromorphone (Verified Allergy, Intermediate, 01/04/18) metoclopramide (Verified Allergy, Intermediate, 01/04/18) morphine (Verified Allergy, Intermediate, BROKE OUT WITH RASH, 01/04/18) phenytoin (Verified Allergy, Intermediate, 01/04/18) temazepam (Verified Allergy, Intermediate, 01/04/18) Tolerates alprazolam trazodone (Verified Allergy, Intermediate, 01/04/18) zolpidem (Verified Allergy, Intermediate, 01/04/18) I S O L A T I O N *CONTACT* (Verified Allergy, Unknown, 11/11/18) mrsa ROS General: No: Chills, Night Sweats, Fatigue, Malaise, Appetite, Other PSYCHOLOGICAL ROS: YES: Anxiety, Sleep disturbances; No: Behavioral Disorder, Concentration difficultie, Decreased libido, Depression, Disorientation, Hallucinations, Hostility, Irritablity, Memory difficulties, Mood Swings, Obsessive thoughts, Physical abuse, Sexual abuse, Suicidal ideation, Other Eyes: No Blurry vision, No Decreased vision, No Double vision, No Dry eyes, No Excessive tearing, No Eye Pain, No Itchy Eyes, No Loss of vision, No Photophobia, No Scotomata, No Uses contacts, No Uses glasses, No Other HEENT: YES: Heacaches; No: Visual Changes, Hearing change, Nasal congestion, Nasal discharge, Oral lesions, Sinus pain, Sore Throat, Epistaxis, Sneezing, Snoring, Tinnitus, Vertigo, Vocal changes, Other Respiratory: No: Cough, Hemoptysis, Orthopnea, Pleuritic Pain, Shortness of breath, SOB with excertion, Sputum Changes, Stridor, Tachypnea, Wheezing, Other Cardiovascular: yes Chest Pain; No Palpitations, No Orthopnea, No Paroxysmal Noc. Dyspnea, No Edema, No Lt Headedness, No Other Gastrointestinal: Yes Nausea, Yes Abdominal Pain Genitourinary: No Dysuria, No Frequency, No Incontinence, No Hematuria, No Retention, No Discharge, No Urgency, No Pain, No Flank Pain, No Other, No , No , No , No , No , No , No Musculoskeletal: Yes Gait Disturbance, Yes Joint Stiffness; No Joint Pain, No Joint Swelling, No Muscle Pain, No Muscular Weakness, No Pain In:, No Swelling In:, No Other Neurological: Yes Dizziness; No Behavorial Changes, No Bowel/Bladder ControlChng, No Confusion, No Headaches, No Impaired Coord/balance, No Memory Loss, No Numbness/Tingling, No Seizures, No Speech Problems, No Tremors, No Visual Changes, No Weakness, No Other Skin: No Dry Skin, No Eczema, No Hair Changes, No Lumps, No Mole Changes, No Mottling, No Nail Changes, No Pruritus, No Rash, No Skin Lesion Changes, No Other, No Acne Physical Exam General: Alert, Cooperative, mild distress HEENT: PERRLA, EOMI Lungs: Clear to auscultation, Normal air movement Heart: S1S2, no gallops, no murmurs Extremities: No clubbing, No edema, Normal pulses Skin: No rashes Neuro: Normal speech, Normal tone, Sensation intact, Cranial nerves 3-12 NL Psych/Mental Status: Mental status NL Vitals Vitals Vital Signs Date Time Temp Pulse Resp B/P (MAP) Pulse Ox O2 Delivery O2 Flow Rate FiO2 06/08/19 18:10 97.9 77 20 117/82 (94) Room Air 97.9 VTE Prophylaxis Ordered VTE Prophylaxis Devices: Yes VTE Pharmacological Prophylaxi: Yes Assessment/Plan Assessment/Plan chest pain, unstable angina, concern for progression to NSTEMI, trop peak 0.2 so far, still having pain concerning EKG or early repol change, CV consult in [place], transfer here for eval, consider cath in AM dm2 htn CAD hx CHF insomnia depression admit to [facility] tele 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
[2019-06-08] MEDS ORDERED: CYCLOBENZAPRINE 10 MG TABLET. PO PRN (19:45)
[2019-06-08] MEDS: IV NORMAL SALINE 1000ML BAG 1,000 ML IV SCH (20:23)
[2019-06-08] MEDS: busPIRone 5 MG TABLET. PO SCH (20:24)
[2019-06-08] MEDS: ATORVASTATIN CALCIUM 40 MG TABLET. PO SCH (20:24)
[2019-06-08] MEDS: NORTRIPTYLINE 25 MG CAPSULE PO SCH (20:25)
[2019-06-08] MEDS: NAPROXEN 500 MG TABLET PO SCH (20:25)
[2019-06-08] MEDS: MIRTAZAPINE 15 MG TABLET PO SCH (20:25)
[2019-06-08] MEDS: ASCORBIC ACID 500 MG TABLET PO SCH (20:26)
[2019-06-08] MEDS: rOPINIRole 1 MG TABLET. PO SCH (20:26)
[2019-06-08] MEDS: MONTELUKAST SODIUM 10 MG TABLET. PO SCH (20:26)
[2019-06-08] MEDS: traMADol 50 MG TABLET PO PRN (20:27)
[2019-06-08] MEDS: diphenhydrAMINE HCL 25 MG CAPSULE PO PRN (20:27)
[2019-06-08] MEDS: ZONISAMIDE 100 MG CAPSULE. PO SCH (20:27)
[2019-06-08] MEDS: buPROPion XL 150 MG TAB.ER.24H. PO SCH (20:34)
[2019-06-08] MEDS: carBAMazepine 200 MG TABLET PO SCH (20:34)
[2019-06-08] MEDS: DICLOFENAC SODIUM 1% TOPICAL GEL 100GM TUBE. TP SCH (20:34)
[2019-06-08] MEDS: IPRATRPIUM/ALBUTEROL 0.5/2.5MG 3 ML NEBU. NEB SCH (21:00)
[2019-06-08 23:00] VITALS: BP 127/58
[2019-06-09] VITALS (26 sets, daily range): BP systolic 69–169; BP diastolic 39–72
[2019-06-09 01:29] LABS: BASO # 0.1 x10^3/uL (0.0-0.2); BASO % 1 % (0-3); EOS # 0.8 x10^3/uL (0.0-0.7); EOS % 6 % (0-3); HEMATOCRIT 29.4 % (36.0-47.0); HEMOGLOBIN 9.5 g/dL (12.0-15.5); LYMPH # 5.3 x10^3/uL (1.0-4.8); LYMPH % 37 % (24-48); MEAN CORPUSCULAR HEMOGLOBIN 29 pg (25-35); MEAN CORPUSCULAR HGB CONC 32 g/dL (31-37); MEAN CORPUSCULAR VOLUME 89 fL (79-100); MONO # 1.2 x10^3/uL (0.0-1.1); MONO % 9 % (0-9); NEUT # 6.9 x10^3/uL (1.8-7.7); NEUT % 48 % (31-73); PLATELET COUNT 626 x10^3/uL (140-400); RED BLOOD COUNT 3.31 x10^6/uL (3.50-5.40); RED CELL DISTRIBUTION WIDTH 15.8 % (11.5-14.5); WHITE BLOOD COUNT 14.4 x10^3/uL (4.0-11.0)
[2019-06-09 01:50] LABS: ALBUMIN 3.1 g/dL (3.4-5.0); ALBUMIN/GLOBULIN RATIO 0.7 (1.0-1.7); CALCIUM 9.1 mg/dL (8.5-10.1); CREATININE 1.4 mg/dL (0.6-1.0); GFR 36.9; POTASSIUM 4.7 mmol/L (3.5-5.1); TOTAL BILIRUBIN 0.2 mg/dL (0.2-1.0); TOTAL PROTEIN 7.5 g/dL (6.4-8.2)
[2019-06-09 01:52] LABS: CHOLESTEROL/HDL RATIO 3.3
[2019-06-09] MEDS: IV NORMAL SALINE 1000ML BAG 1,000 ML IV SCH ×3 (06:21→21:14)
[2019-06-09] MEDS: IPRATRPIUM/ALBUTEROL 0.5/2.5MG 3 ML NEBU. NEB SCH ×3 (06:25→20:34)
[2019-06-09] MEDS ORDERED: METOPROLOL SUCC 24HR ER 25 MG TAB.ER.24H. PO SCH (09:00)
[2019-06-09] MEDS: busPIRone 5 MG TABLET. PO SCH ×3 (09:00→21:13)
--- NOTE | 2019-06-09 09:34 | NUR ---
IP: Pt has a hx of + mrsa screen on 05/01/19. Pt to be in contact precautions until there are 2 negative screens 7 days apart.
[2019-06-09] MEDS: CARVEDILOL 6.25 MG TABLET. PO SCH ×2 (09:52→17:00)
[2019-06-09] MEDS: ARIPiprazole 2 MG TABLET PO SCH (09:52)
[2019-06-09] MEDS: NAPROXEN 500 MG TABLET PO SCH ×2 (09:53→21:13)
[2019-06-09] MEDS: LISINOPRIL 5 MG TABLET. PO SCH (09:53)
[2019-06-09] MEDS: ZONISAMIDE 100 MG CAPSULE. PO SCH ×3 (09:53→21:13)
[2019-06-09] MEDS: buPROPion XL 150 MG TAB.ER.24H. PO SCH ×2 (09:53→21:14)
[2019-06-09] MEDS: ASPIRIN ENTERIC COATED 81 MG TABLET.DR. PO SCH (09:53)
[2019-06-09] MEDS: MULTIVITAMIN with MINERAL TABLET. PO SCH (09:53)
[2019-06-09] MEDS: ASCORBIC ACID 500 MG TABLET PO SCH ×2 (09:53→21:16)
[2019-06-09] MEDS: CYANOCOBALAMIN (VITAMIN B-12) 1,000 MCG TABLET. PO SCH (09:53)
[2019-06-09] MEDS: FLUTICASONE 50MCG/NASAL SPRAY 16GM BOTTLE. NS SCH (09:54)
[2019-06-09] MEDS: DICLOFENAC SODIUM 1% TOPICAL GEL 100GM TUBE. TP SCH ×4 (09:54→21:00)
[2019-06-09] MEDS: INSULIN LISPRO 300 UNITS/3 ML VIAL. SQ SCH ×3 (10:04→18:06)
[2019-06-09] MEDS ORDERED: IODIXANOL 320 MG/ML 100 ML VIAL. ONE ×2 (10:05→11:15)
--- NOTE | 2019-06-09 10:34 | PDOC ---
[employer] PROGRESS NOTE Chief Complaint Chief Complaint Chest pain, unstable angina NSTEMI (Non-ST elevation myocardial infarction) DM2 (Diabetes Mellitus Type 2) Hypertension CAD (Coronary Artery Disease) CHF (Congestive Heart Failure) Insomnia Depression History of Present Illness History of Present Illness 06/09/2019 Pt seen and examined. Chart reviewed and care discussed with nursing staff. Pt resting comfortably in bed w/ NAD. She continues to have chest pain. Cardiology consulted with plan to undergo cardiac cath today. Will follow. Vitals/I&O Vitals/I&O: Vital Signs Date Time Temp Pulse Resp B/P (MAP) Pulse Ox O2 Delivery O2 Flow Rate FiO2 06/09/19 09:53 80 128/61 06/09/19 07:00 97.8 18 95 Room Air 97.8 I & O 06/08/19 06/08/19 06/09/19 15:00 23:00 07:00 Intake Total 200 ml Output Total 150 ml Balance 50 ml Physical Exam General: Alert, Cooperative, mild distress Heart: Regular rate, No murmurs Lungs: Clear Abdomen: Normal bowel sounds, No tenderness Extremities: No clubbing, No edema, Normal pulses Skin: No rashes Labs Labs: Laboratory Tests Test 06/08/19 18:55 06/08/19 19:24 06/09/19 01:05 06/09/19 08:13 Heparin Anti-Xa Act, Unfractionated 0.44 IU/mL (0.30-0.70) 0.49 IU/mL (0.30-0.70) Glucose (Fingerstick) 214 mg/dL (70-99) 260 mg/dL (70-99) White Blood Count 14.4 x10^3/uL (4.0-11.0) Red Blood Count 3.31 x10^6/uL (3.50-5.40) Hemoglobin 9.5 g/dL (12.0-15.5) Hematocrit 29.4 % (36.0-47.0) Mean Corpuscular Volume 89 fL (79-100) Mean Corpuscular Hemoglobin 29 pg (25-35) Mean Corpuscular Hemoglobin Concent 32 g/dL (31-37) Red Cell Distribution Width 15.8 % (11.5-14.5) Platelet Count 626 x10^3/uL (140-400) Neutrophils (%) (Auto) 48 % (31-73) Lymphocytes (%) (Auto) 37 % (24-48) Monocytes (%) (Auto) 9 % (0-9) Eosinophils (%) (Auto) 6 % (0-3) Basophils (%) (Auto) 1 % (0-3) Neutrophils # (Auto) 6.9 x10^3/uL (1.8-7.7) Lymphocytes # (Auto) 5.3 x10^3/uL (1.0-4.8) Monocytes # (Auto) 1.2 x10^3/uL (0.0-1.1) Eosinophils # (Auto) 0.8 x10^3/uL (0.0-0.7) Basophils # (Auto) 0.1 x10^3/uL (0.0-0.2) Sodium Level 138 mmol/L (136-145) Potassium Level 4.7 mmol/L (3.5-5.1) Chloride Level 106 mmol/L (98-107) Carbon Dioxide Level 20 mmol/L (21-32) Anion Gap 12 (6-14) Blood Urea Nitrogen 34 mg/dL (7-20) Creatinine 1.4 mg/dL (0.6-1.0) Estimated GFR (Cockcroft-Gault) 36.9 BUN/Creatinine Ratio 24 (6-20) Glucose Level 313 mg/dL (70-99) Calcium Level 9.1 mg/dL (8.5-10.1) Total Bilirubin 0.2 mg/dL (0.2-1.0) Aspartate Amino Transf (AST/SGOT) 17 U/L (15-37) Alanine Aminotransferase (ALT/SGPT) 23 U/L (14-59) Alkaline Phosphatase 71 U/L (46-116) Troponin I Quantitative 0.070 ng/mL (0.000-0.055) Total Protein 7.5 g/dL (6.4-8.2) Albumin 3.1 g/dL (3.4-5.0) Albumin/Globulin Ratio 0.7 (1.0-1.7) Triglycerides Level 258 mg/dL (0-150) Cholesterol Level 120 mg/dL (0-200) LDL Cholesterol, Calculated 32 mg/dL (0-100) VLDL Cholesterol, Calculated 52 mg/dL (0-40) Non-HDL Cholesterol Calculated 84 mg/dL (0-129) HDL Cholesterol 36 mg/dL (40-60) Cholesterol/HDL Ratio 3.3 Review of Systems Review of Systems: Reports chest pain Denies SOA Assessment and Plan Assessmemt and Plan Chest pain, unstable angina NSTEMI (Non-ST elevation myocardial infarction) DM2 (Diabetes Mellitus Type 2) Hypertension CAD (Coronary Artery Disease), s/p 2X stent placement CHF (Congestive Heart Failure) Insomnia Depression Plan: -Cardiac Monitoring -Serial enzymes/ECGs -Continue home meds -Cardiology Consulted -Cardiac Cath today -PT/OT consult -DVT ppx -Full code Comment Review of Relevant I have reviewed the following items danisha (where applicable) has been applied. Medications: Current Medications Medications (Trade) Dose Ordered Sig/Morgan Route PRN Reason Start Time Stop Time Status Last Admin Dose Admin Sodium Chloride 1,000 ml @ 100 mls/hr Q10H IV 06/08/19 18:45 06/09/19 06:21 Aripiprazole (Abilify) 2 mg DAILY PO 06/09/19 09:00 06/09/19 09:52 Ascorbic Acid (Vitamin C) 500 mg BID PO 06/08/19 21:00 06/09/19 09:53 Aspirin (Ecotrin) 81 mg DAILY PO 06/09/19 09:00 06/09/19 09:53 Atorvastatin Calcium (Lipitor) 80 mg QHS PO 06/08/19 21:00 06/08/19 20:24 Bupropion HCl (Wellbutrin Xl) 150 mg BID PO 06/08/19 21:00 06/09/19 09:53 Carbamazepine (TEGretol) 200 mg QHS PO 06/08/19 21:00 06/08/19 20:34 Carvedilol (Coreg) 6.25 mg BIDWMEALS PO 06/09/19 08:00 06/09/19 09:52 Cyanocobalamin (Vitamin B-12) 1,000 mcg DAILY PO 06/09/19 09:00 06/09/19 09:53 Diclofenac Sodium (Voltaren) 1 mac QID TP 06/08/19 21:00 06/09/19 09:54 Albuterol/ Ipratropium (Duoneb) 3 ml TID NEB 06/08/19 21:00 06/09/19 06:25 Lisinopril (Prinivil) 5 mg DAILY PO 06/09/19 09:00 06/09/19 09:53 Mirtazapine (Remeron) 30 mg QHS PO 06/08/19 21:00 06/08/19 20:25 Montelukast Sodium (Singulair) 10 mg HS PO 06/08/19 21:00 06/08/19 20:26 Naproxen (Naprosyn) 500 mg BID PO 06/08/19 21:00 06/09/19 09:53 Nortriptyline HCl (Pamelor) 50 mg HS PO 06/08/19 21:00 06/08/19 20:25 Ropinirole HCl (Requip) 1 mg QHS PO 06/08/19 21:00 06/08/19 20:26 Tramadol HCl (Ultram) 50 mg PRN Q4HRS PRN PO MILD TO MODERATE PAIN 06/08/19 18:45 06/08/19 20:27 Zonisamide (Zonegran) 100 mg TID PO 06/08/19 21:00 06/09/19 09:53 Buspirone HCl (Buspar) 15 mg TID PO 06/08/19 21:00 06/08/19 20:24 Fluticasone Propionate (Flonase) 2 spray DAILY NS 06/09/19 09:00 06/09/19 09:54 Insulin Human Lispro (HumaLOG) 6 units TIDWMEALS SQ 06/09/19 08:00 06/09/19 10:04 Multivitamins (Thera M Plus) 1 tab DAILY PO 06/09/19 09:00 06/09/19 09:53 Diphenhydramine HCl (Benadryl) 25 mg PRN QHS PRN PO INSOMNIA 06/08/19 19:15 06/08/19 20:27 SHADIA NOBLES III DO Jun 09, 2019 10:33
[2019-06-09] MEDS ORDERED: LIDOCAINE 1% PF 2 ML VIAL. ONE (11:15)
[2019-06-09] MEDS ORDERED: LIDOCAINE 1% Multi-Dose 20 ML VIAL. ONE (11:22)
[2019-06-09] MEDS ORDERED: MIDAZOLAM HCL/PF 2 MG/2 ML VIAL. ONE (11:34)
[2019-06-09] MEDS ORDERED: fentaNYL PF VIAL 100 MCG/2 ML VIAL ONE (11:34)
[2019-06-09] MEDS ORDERED: LIDOCAINE 1% Multi-Dose 20 ML VIAL. INJ ONE (11:45)
[2019-06-09] MEDS ORDERED: IODIXANOL 320 MG/ML 100 ML VIAL. IART ONE (11:45)
[2019-06-09] MEDS ORDERED: fentaNYL PF VIAL 100 MCG/2 ML VIAL IV ONE (11:45)
[2019-06-09] MEDS ORDERED: MIDAZOLAM HCL/PF 2 MG/2 ML VIAL. IV ONE (11:45)
[2019-06-09] MEDS ORDERED: CONTRAST GIVEN. MC PRN (12:00)
[2019-06-09] MEDS ORDERED: HEPARIN for IV BOLUS 10,000 UNIT/10 ML VIAL. ONE (12:06)
[2019-06-09] MEDS ORDERED: HEPARIN for IV BOLUS 10,000 UNIT/10 ML VIAL. IV ONE (12:30)
[2019-06-09] MEDS ORDERED: PRASUGREL 10 MG TABLET. PO ONE (12:45)
[2019-06-09] MEDS: FAMOTIDINE 20 MG TABLET. PO SCH (13:22)
[2019-06-09] MEDS: PANTOPRAZOLE 40 MG TABLET.DR. PO SCH (13:22)
[2019-06-09] MEDS: SPIRONOLACTONE 25 MG TABLET PO SCH (13:23)
[2019-06-09] MEDS: FUROSEMIDE 20 MG TABLET PO SCH (13:23)
[2019-06-09] MEDS: DULoxetine HCL 30 MG CAPSULE.DR PO SCH (13:24)
--- NOTE | 2019-06-09 13:33 | CARD ---
MR#: [id number] Date of Study: 06/09/2019 Ordering Physician: SHARYN BARFIELD, Referring Physician: SHARYN BARFIELD, Tech: TRAY MERA RTR APPROVED REPORT Technologist: TRAY MERA RTR Nurse: WADE TIJERINA RN Procedure(s) performed: MODERATE SEDATION TIME: 60 MINUTES FLUORO TIME: 10.9 MIN DOSE: [id number] CONTRAST: 68CC VISI LHC, Coronary angiography POBA of the proximal and distal LAD HISTORY The patient is a 73 year-old female with a history of : coronary artery disease, hypertension, dyslip idemia. INDICATION The indication(s) include : non-STEMI . CS Clinical Frailty Scale [facility] Clinical Frailty Scale: Severely Frail Heart Failure Heart Failure: Yes If Yes, Newly Diagnosed: No If Yes, HF Type: Diastolic Systolic If Yes, NYHA Class: Class II PROCEDURE NARRATIVE After explaining the risks and benefits of the procedure and alternatives, informed consent was obtai federica. The patient was brought electively to the cardiac catheterization lab in a fasting state. A sanna eout was performed confirming the patient's name, date of , procedure, and site of procedure. A ll necessary personnel were wearing the appropriate protective equipment and radiation monitor device s. (See nursing notes for medications administered). The right groin was sterilely prepped and drap ed in the usual fashion. The right groin was infiltrated with 10 mL of 2% lidocaine for subcutaneous anesthesia. A 6 F sheath was inserted into the right femoral artery without difficulty. Right and left coronary angiography was performed using a JR4 and JL4 catheter. Left ventricular end diastolic pressure was obtained with a pigtail catheter and pullback was performed. All catheter exchanges an d advancements were performed over a guidewire. At case completion the right femoral sheath was masha william and hemostasis was achieved with manual compression. There were no acute complications. HEMODYNAMICS: AO: 120/80 LVEDP 25 mm Hg No gradient on LV to aortic pullback. LEFT VENTRICULOGRAM: Deferred. CORONARY ANGIOGRAPHY: LM is a large caliber vessel with normal angiographic appearance. LAD is a small caliber vessel with an ostial 50% stenosis, mid 100% ISR with distal 90% ISR. LCx is a moderate to large caliber non-dominant vessel with OM1 is a moderate caliber bifurcating vessel with an ostial 50% stenosis involving the inferior branc h and a mid 50% stenosis involving the superior branch. RCA is a small to moderate caliber heavily diseased vessel with significant negative remodeling and d iffuse 80% distal disease. RPDA is a very small caliber vessel with diffuse disease. INTERVENTIONAL TECHNIQUE: POBA OF THE LAD Heparin only was used for anticoagulation. Through a 6Fr JL 3.5 guide catheter, a 0.014'' [place] wi re was unable to cross the stenosis. Next, a Magen blue wire was able to traverse to the apical LAD. B alloon angioplasty was performed with a Trek 2.0/12 mm Balloon at 14 madeleine. Final angioraphy revealed minimal residual stenosis of less than 10%. ISHAAN Flow ISHAAN Flow (Pre-Intervention): ISHAAN-0 ISHAAN Flow (Post-Intervention): ISHAAN-3 Conclusion 1. Acute on chronic systolic/diastolic HF 2. Three vessel coronary disease. 3. Sucessful balloon angioplasty only of the LAD Recommendations 1. Given the small caliber of the vessels, repeat stenting was deferred. Consider brachytherapy with IVUS guided PCI of the LM/ostial LAD and mid to distal LAD depending on symptoms. 2. ASA 81mg daily 3. Prasugrel 10mg daily. Signed by : Sharyn Barfield, Electronically Approved : 06/09/2019 13:33:20
--- NOTE | 2019-06-09 13:38 | NUR ---
SS following for discharge planning. SS reviewed pt chart. Pt is from home with spouse and is currently requiring oxygen. SS will continue to follow for discharge planning.
--- NOTE | 2019-06-09 14:25 | NUR ---
Rapid response called on pt after rolling to get on bed robb and noticing a hematoma along with pt having BP of 49/28. Dr. Price alerted, fluid bolus started and pressure applied. Current BP of 81/46 with a HR of 75
[2019-06-09 17:23] LABS: HEMATOCRIT 22.8 % (36.0-47.0); RED BLOOD COUNT 2.46 x10^6/uL (3.50-5.40); RED CELL DISTRIBUTION WIDTH 16.2 % (11.5-14.5); WHITE BLOOD COUNT 13.8 x10^3/uL (4.0-11.0)
--- NOTE | 2019-06-09 19:20 | NUR ---
Called Dr. Ferraro for clarification on heparin gtt orders, received orders to restart heparin gtt per [facility] protocol without intial bolus and to recheck UFH within 3 hours of starting.
[2019-06-09] MEDS: NORTRIPTYLINE 25 MG CAPSULE PO SCH (21:13)
[2019-06-09] MEDS: MIRTAZAPINE 15 MG TABLET PO SCH (21:13)
[2019-06-09] MEDS: traMADol 50 MG TABLET PO PRN (21:13)
[2019-06-09] MEDS: ATORVASTATIN CALCIUM 40 MG TABLET. PO SCH (21:13)
[2019-06-09] MEDS: MONTELUKAST SODIUM 10 MG TABLET. PO SCH (21:13)
[2019-06-09] MEDS: diphenhydrAMINE HCL 25 MG CAPSULE PO PRN (21:13)
[2019-06-09] MEDS: carBAMazepine 200 MG TABLET PO SCH (21:13)
[2019-06-09] MEDS: rOPINIRole 1 MG TABLET. PO SCH (21:14)
[2019-06-09] MEDS: INSULIN GLARGINE SYRINGE. SQ SCH (21:26)
[2019-06-09 22:07] LABS: HEMOGLOBIN A1C 9.2 % (4.8-5.6)
[2019-06-09] MEDS ORDERED: INSULIN LISPRO 300 UNITS/3 ML VIAL. SQ ONE (22:30)
[2019-06-09] MEDS ORDERED: fentaNYL PF VIAL 100 MCG/2 ML VIAL IVP PRN (22:45)
[2019-06-10 01:08] VITALS: BP 166/75
[2019-06-10 03:00] VITALS: BP 141/68
[2019-06-10 04:41] LABS: BASO # 0.1 x10^3/uL (0.0-0.2); BASO % 1 % (0-3); EOS # 0.6 x10^3/uL (0.0-0.7); EOS % 3 % (0-3); HEMATOCRIT 33.4 % (36.0-47.0); HEMOGLOBIN 11.1 g/dL (12.0-15.5); LYMPH # 4.1 x10^3/uL (1.0-4.8); LYMPH % 19 % (24-48); MEAN CORPUSCULAR HEMOGLOBIN 30 pg (25-35); MEAN CORPUSCULAR HGB CONC 33 g/dL (31-37); MEAN CORPUSCULAR VOLUME 90 fL (79-100); MONO # 1.4 x10^3/uL (0.0-1.1); MONO % 7 % (0-9); NEUT # 15.1 x10^3/uL (1.8-7.7); NEUT % 71 % (31-73); PLATELET COUNT 541 x10^3/uL (140-400); RED BLOOD COUNT 3.72 x10^6/uL (3.50-5.40); WHITE BLOOD COUNT 21.4 x10^3/uL (4.0-11.0)
[2019-06-10 05:03] LABS: CALCIUM 9.9 mg/dL (8.5-10.1); CREATININE 1.3 mg/dL (0.6-1.0); GFR 40.2; POTASSIUM 4.5 mmol/L (3.5-5.1)
[2019-06-10 07:00] VITALS: BP 125/58
[2019-06-10] MEDS: IPRATRPIUM/ALBUTEROL 0.5/2.5MG 3 ML NEBU. NEB SCH ×2 (07:50→11:47)
[2019-06-10 07:58] LABS: % BANDS 6 % (0-9); % EOS 1 % (0-5); % LYMPHS 16 % (24-48); % MONOS 4 % (0-10); % SEGS 73 % (35-66)
[2019-06-10 08:00] LABS: PLT ESTIMATE INCREASED (ADEQUATE)
[2019-06-10] MEDS ORDERED: PRASUGREL 10 MG TABLET. PO SCH (08:00)
[2019-06-10 08:01] LABS: ANISOCYTOSIS SLIGHT
[2019-06-10] MEDS: DICLOFENAC SODIUM 1% TOPICAL GEL 100GM TUBE. TP SCH ×2 (09:00→13:00)
[2019-06-10] MEDS ORDERED: CETIRIZINE HCL 10 MG TABLET. PO SCH (09:00)
[2019-06-10] MEDS ORDERED: CHOLECALCIFEROL (VITAMIN D3) 1,000 UNIT TABLET PO SCH (09:00)
[2019-06-10] MEDS: ZONISAMIDE 100 MG CAPSULE. PO SCH ×2 (09:15→13:35)
[2019-06-10] MEDS: FAMOTIDINE 20 MG TABLET. PO SCH (09:16)
[2019-06-10] MEDS: PANTOPRAZOLE 40 MG TABLET.DR. PO SCH (09:16)
[2019-06-10] MEDS: NAPROXEN 500 MG TABLET PO SCH (09:17)
[2019-06-10] MEDS: LISINOPRIL 5 MG TABLET. PO SCH (09:17)
[2019-06-10] MEDS: FUROSEMIDE 20 MG TABLET PO SCH (09:17)
[2019-06-10] MEDS: CARVEDILOL 6.25 MG TABLET. PO SCH (09:17)
[2019-06-10] MEDS: DULoxetine HCL 30 MG CAPSULE.DR PO SCH (09:18)
[2019-06-10] MEDS: ASPIRIN ENTERIC COATED 81 MG TABLET.DR. PO SCH (09:18)
[2019-06-10] MEDS: CYANOCOBALAMIN (VITAMIN B-12) 1,000 MCG TABLET. PO SCH (09:18)
[2019-06-10] MEDS: SPIRONOLACTONE 25 MG TABLET PO SCH (09:18)
[2019-06-10] MEDS: busPIRone 5 MG TABLET. PO SCH ×2 (09:19→13:34)
[2019-06-10] MEDS: FLUTICASONE 50MCG/NASAL SPRAY 16GM BOTTLE. NS SCH (09:19)
[2019-06-10] MEDS: ASCORBIC ACID 500 MG TABLET PO SCH (09:19)
[2019-06-10] MEDS: MULTIVITAMIN with MINERAL TABLET. PO SCH (09:19)
[2019-06-10] MEDS: buPROPion XL 150 MG TAB.ER.24H. PO SCH (09:19)
[2019-06-10] MEDS: INSULIN LISPRO 300 UNITS/3 ML VIAL. SQ SCH ×2 (09:35→12:51)
[2019-06-10] MEDS: INSULIN GLARGINE SYRINGE. SQ SCH (09:36)
--- NOTE | 2019-06-10 10:51 | SNU/HH DC ---
DISCHARGE WITH HOME HEALTH DISCHARGE INFORMATION: Discharge Date: Jun 10, 2019 Condition on Discharge: Stable CODE STATUS: Code Status: Full HOME HEALTH: Face to Face: I certify this patient is under my care and that I, or a nurse practitioner or reuben brothres's assistant director of security working with me, had a face to face encounter that meets the physician face to face encounter requirements with this patient on []. Medical Complications: CHF Senior Care For: Assess & Educate Safety RN For Eval/Treatment: Yes Physical Therapy For: Evalulation/Treatment Speech Language Pathology For: Evaluation/Treatment Home Health Aide For: Self-care LOCAL AREA NETWORK SYSTEMS ADMINSTRATOR For: Community Resources Pt Meets Homebound Status: Extreme weakness w/ amb. POST DISCHARGE ORDERS: Activity Instructions for Disc: Activity as tolerated Weight Bearing Status after Di: No restrictions, As tolerated Bathing Instructions: Shower-keep dressing dry DIET AFTER DISCHARGE: Cardiac Wound/Incision Care: No wound care needed DC TO SNF OTHER: Doug drain, empty q shift CHECKS AFTER DISCHARGE: Checks after discharge: Check blood press - daily, Check blood sugar, ac/hs TREATMENT/EQUIPMENT ORDERS: Adaptive Equipment Issued: None Discharge Respiratory Equipmen: Oxygen CERTIFICATION STATEMENT: Certification Statement: Certification Statement: Based on the above finding, I certify that this patient is confined to the home and needs intermittent prison care, physical therapy and/or speech therapy, or continues to need occupational therapy.~ This patient is under my care, and I have initiated the establishment of the plan of care.~ This patient will be followed by myself or a community physician who will periodically review the plan of care. Home Meds Active Scripts Prasugrel Hcl (EFFIENT) 10 Mg Tablet, 10 MG PO DAILYWBKFT for Stents for 30 Days, #30 TAB Prov:GIULIANO,NIAL K III DO 06/10/19 Atorvastatin Calcium (ATORVASTATIN CALCIUM) 40 Mg Tablet, 80 MG PO QHS for li pids, #60 TAB Prov:WALDEMAR COE MD 12/02/18 Reported Medications Galcanezumab-Gnlm (Emgality) 120 Mg/1 Ml Pen.injctr, 120 MG SQ QMONTH for migranes, EACH 06/08/19 Furosemide (FUROSEMIDE) 20 Mg Tablet, 1 TAB PO DAILY for unk, #90 TAB 1 Refill 04/24/19 Carvedilol (CARVEDILOL ) 6.25 Mg Tablet, 6.25 MG PO BIDWMEALS for CARDIAC, TAB 04/24/19 Bupropion Hcl (BUPROPION XL) 150 Mg Tab.er.24h, 150 MG PO BID for unk, TAB.SR 04/24/19 Tramadol Hcl (TRAMADOL HCL) 50 Mg Tablet, 50 MG PO Q4HRS PRN for PAIN, TAB 04/24/19 Cyclobenzaprine Hcl (CYCLOBENZAPRINE HCL) 5 Mg Tablet, 5 MG PO TID PRN for spasms, TAB 04/24/19 Montelukast Sodium (MONTELUKAST SODIUM TABLET ) 10 Mg Tablet, 10 MG PO HS for FOR ASTHMA, TAB 0 Refills 04/24/19 Spironolactone (SPIRONOLACTONE) 25 Mg Tablet, 1 TAB PO DAILY for unk, #90 TAB 1 Refill 04/24/19 Ranitidine Hcl (RANITIDINE HCL) 150 Mg Capsule, 150 MG PO DAILY for gerd, TAB 04/24/19 Naproxen (NAPROXEN) 500 Mg Tablet, 1 TAB PO BID for pain for 30 Days, #60 TAB 0 Refills 04/24/19 Aripiprazole (ABILIFY) 2 Mg Tablet, 2 MG PO DAILY, TAB 11/30/18 Buspirone Hcl (BUSPIRONE HCL) 15 Mg Tablet, 15 MG PO TID, TAB 11/30/18 Carbamazepine (TEGRETOL) 200 Mg Tablet, 200 MG PO QHS, TAB 11/08/18 Metoprolol Succinate (METOPROLOL SUCCINATE ( XL )) 25 Mg Tab.er.24h, 12.5 MG PO DAILY for FOR HYPERTENSION, #30 TAB 0 Refills 11/08/18 Clonazepam (KLONOPIN) 0.5 Mg Tablet, 0.5 MG PO PRN BID PRN for ANXIETY / AGITATION, TAB 01/08/18 Lawrence-3 Fatty Acids/Fish Oil (FISH OIL 1,000 MG CAPSULE) 1 Each Capsule, 1 EACH PO TID, CAP 01/08/18 Duloxetine Hcl (CYMBALTA) 60 Mg Capsule.dr, 120 MG PO DAILY, CAP 01/08/18 Loperamide Hcl (LOPERAMIDE) 2 Mg Capsule, 2 MG PO, CAP 01/04/18 Cetirizine Hcl (ZYRTEC) 10 Mg Tablet, 1 TAB PO DAILY, #30 TAB 2 Refills 01/04/18 Zonisamide (ZONISAMIDE) 100 Mg Capsule, 100 MG PO TID, CAP 12/14/17 Pantoprazole Sodium (PROTONIX) 20 Mg Tablet.dr, 40 MG PO DAILY, TAB 12/14/17 Nortriptyline Hcl (NORTRIPTYLINE HCL) 25 Mg Capsule, 50 MG PO HS, CAP 12/14/17 Ipratropium/Albuterol Sulfate (DUONEB 0.5-3(2.5) MG/3 ML) 3 Ml Ampul.neb, 3 ML NEB TID, EACH 12/14/17 Multivitamin (MULTIVITAMINS) 1 Each Tablet, 1 TAB PO DAILY, #90 TAB 3 Refills 06/25/17 Mirtazapine (MIRTAZAPINE) 15 Mg Tablet, 30 MG PO QHS, #30 TAB 3 Refills 06/25/17 Lisinopril (LISINOPRIL) 5 Mg Tablet, 1 TAB PO DAILY, #30 TAB 5 Refills 06/25/17 Cyanocobalamin (Vitamin B-12) (VITAMIN B-12) 1,000 Mcg Tablet, 1 TAB PO DAILY, #30 TAB 2 Refills 06/25/17 Cholecalciferol (Vitamin D3) (VITAMIN D) 1,000 Unit Capsule, 1 CAP PO DAILY, #30 CAP 3 Refills 06/25/17 Ascorbic Acid (ASCORBIC ACID) 500 Mg Tablet, 500 MG PO BID, TAB 06/25/17 Diclofenac Sodium (VOLTAREN) 100 Gm Gel..gram., 100 GM TP QID 02/02/15 Insulin Detemir (Levemir Flextouch) 100 Unit/1 Ml Insuln.pen, 36 UNIT SQ BID for diabetes, SYR 02/02/15 Fluticasone Propionate (Flonase Allergy Relief) 9.9 Ml Meta.susp, 2 SPR NS DAILY 02/01/15 Aspirin (ASPIR 81) 81 Mg Tablet.dr, 81 MG PO DAILY, TAB 09/03/13 Ropinirole Hcl (ROPINIROLE HCL) 1 Mg Tablet, 1 MG PO QHS 09/03/13 Insulin Aspart (NOVOLOG) 100 Unit/1 Ml Cartridge, 6 UNIT SQ TIDAC for diabetes 09/03/13 Discontinued Reported Medications Aspirin/Acetaminophen/Caffeine (EXCEDRIN MIGRAINE CAPLET) 1 Each Tablet, 1 EACH PO PRN Q6HRS PRN for migraine, TAB 11/30/18 SHADIA NOBLES III DO Jun 10, 2019 10:51
[2019-06-10 11:00] VITALS: BP 105/50
[2019-06-10] MEDS: ARIPiprazole 2 MG TABLET PO SCH (11:06)
--- NOTE | 2019-06-10 11:49 | PDOC ---
[facility] [facility] PROGRESS NOTE Chief Complaint Chief Complaint Chest pain, unstable angina NSTEMI (Non-ST elevation myocardial infarction) DM2 (Diabetes Mellitus Type 2) Hypertension CAD (Coronary Artery Disease) Acute on Chronic CHF (Congestive Heart Failure) Insomnia Depression History of Present Illness History of Present Illness 06/09/2019 Pt seen and examined. Chart reviewed and care discussed with nursing staff. Pt resting comfortably in bed w/ NAD. She continues to have chest pain. Cardiology consulted with plan to undergo cardiac cath today. Will follow. 06/10/2019 -Pt seen and examined. -Chart reviewed and care discussed with nursing staff. -Pt comfortable in bed in NAD. She is s/p heart cath with balloon angioplasty of LAD. She is feeling better today. No new complaints at this time. Vitals/I&O Vitals/I&O: Vital Signs Date Time Temp Pulse Resp B/P (MAP) Pulse Ox O2 Delivery O2 Flow Rate FiO2 06/10/19 11:00 97.5 81 16 105/50 (68) 95 Room Air 97.5 06/09/19 21:13 3.0 I & O 06/09/19 06/09/19 06/10/19 15:00 23:00 07:00 Intake Total 1000 ml 1000 ml 600 ml Output Total 1000 ml Balance 1000 ml 1000 ml -400 ml Physical Exam General: Alert, Cooperative, mild distress Heart: Regular rate, No murmurs Lungs: Clear Abdomen: Normal bowel sounds, No tenderness Extremities: No clubbing, No edema, Normal pulses Skin: No rashes Labs Labs: Laboratory Tests Test 06/09/19 12:05 06/09/19 12:28 06/09/19 13:33 06/09/19 14:50 Activated Clotting Time 142 sec (92-181) 199 sec (92-181) Glucose (Fingerstick) 192 mg/dL (70-99) White Blood Count 13.8 x10^3/uL (4.0-11.0) Red Blood Count 2.46 x10^6/uL (3.50-5.40) Hemoglobin 7.0 g/dL (12.0-15.5) Hematocrit 22.8 % (36.0-47.0) Mean Corpuscular Volume 93 fL (79-100) Mean Corpuscular Hemoglobin 29 pg (25-35) Mean Corpuscular Hemoglobin Concent 31 g/dL (31-37) Red Cell Distribution Width 16.2 % (11.5-14.5) Platelet Count 497 x10^3/uL (140-400) Test 06/09/19 16:50 06/09/19 20:56 06/10/19 04:05 06/10/19 08:06 Glucose (Fingerstick) 243 mg/dL (70-99) 311 mg/dL (70-99) 308 mg/dL (70-99) White Blood Count 21.4 x10^3/uL (4.0-11.0) Red Blood Count 3.72 x10^6/uL (3.50-5.40) Hemoglobin 11.1 g/dL (12.0-15.5) Hematocrit 33.4 % (36.0-47.0) Mean Corpuscular Volume 90 fL (79-100) Mean Corpuscular Hemoglobin 30 pg (25-35) Mean Corpuscular Hemoglobin Concent 33 g/dL (31-37) Red Cell Distribution Width 16.0 % (11.5-14.5) Platelet Count 541 x10^3/uL (140-400) Neutrophils (%) (Auto) 71 % (31-73) Lymphocytes (%) (Auto) 19 % (24-48) Monocytes (%) (Auto) 7 % (0-9) Eosinophils (%) (Auto) 3 % (0-3) Basophils (%) (Auto) 1 % (0-3) Neutrophils # (Auto) 15.1 x10^3/uL (1.8-7.7) Lymphocytes # (Auto) 4.1 x10^3/uL (1.0-4.8) Monocytes # (Auto) 1.4 x10^3/uL (0.0-1.1) Eosinophils # (Auto) 0.6 x10^3/uL (0.0-0.7) Basophils # (Auto) 0.1 x10^3/uL (0.0-0.2) Segmented Neutrophils % 73 % (35-66) Band Neutrophils % 6 % (0-9) Lymphocytes % 16 % (24-48) Monocytes % 4 % (0-10) Eosinophils % 1 % (0-5) Platelet Estimate Increased (ADEQUATE) Large Platelets Occ Anisocytosis Slight Sodium Level 140 mmol/L (136-145) Potassium Level 4.5 mmol/L (3.5-5.1) Chloride Level 105 mmol/L (98-107) Carbon Dioxide Level 18 mmol/L (21-32) Anion Gap 17 (6-14) Blood Urea Nitrogen 31 mg/dL (7-20) Creatinine 1.3 mg/dL (0.6-1.0) Estimated GFR (Cockcroft-Gault) 40.2 Glucose Level 310 mg/dL (70-99) Calcium Level 9.9 mg/dL (8.5-10.1) Thyroid Stimulating Hormone (TSH) 8.325 uIU/mL (0.358-3.74) Review of Systems Review of Systems: denies chest pain and soa Assessment and Plan Assessmemt and Plan Chest pain, unstable angina NSTEMI (Non-ST elevation myocardial infarction) DM2 (Diabetes Mellitus Type 2) Hypertension CAD (Coronary Artery Disease) Acute on Chronic CHF (Congestive Heart Failure) Insomnia Depression Plan: -Cardiac Monitoring -Serial enzymes/ECGs -Continue home meds -Cardiology following -PT/OT -DVT ppx -Full code -Discharge home today is cleared by Cardiology. Comment Review of Relevant I have reviewed the following items danisha (where applicable) has been applied. Medications: Current Medications Medications (Trade) Dose Ordered Sig/Morgan Route PRN Reason Start Time Stop Time Status Last Admin Dose Admin Heparin Sodium (Porcine) (Heparin Sodium) 5,000 unit 1X ONCE IV 06/09/19 12:30 06/09/19 12:31 DC 06/09/19 12:30 Prasugrel (Effient) 60 mg 1X ONCE PO 06/09/19 12:45 06/09/19 12:46 DC 06/09/19 13:24 Prasugrel (Effient) 10 mg DAILYWBKFT PO 06/10/19 08:00 06/10/19 11:05 Cetirizine HCl (ZyrTEC) 10 mg DAILY PO 06/10/19 09:00 06/10/19 09:19 Vitamin D (Vitamin D3) 1,000 unit DAILY PO 06/10/19 09:00 06/10/19 09:18 Insulin Glargine (Lantus Syringe) 36 unit BID SQ 06/09/19 22:00 06/10/19 09:36 Insulin Human Lispro (HumaLOG) 6 units 1X ONCE SQ 06/09/19 22:30 06/09/19 22:31 DC 06/09/19 22:52 Fentanyl Citrate (Fentanyl 2ml Vial) 50 mcg PRN Q2HR PRN IVP SEVERE PAIN 7-10 06/09/19 22:45 06/09/19 22:54 SHADIA NOBLES III DO Jun 10, 2019 11:49
[2019-06-10] MEDS ORDERED: PRAS10TA9 PO (11:50)
--- NOTE | 2019-06-10 11:54 | NUR ---
SS following up with discharge planning. Discharge orders received for home with home healthcare. SS met with pt and pt reported that she was on services with [facility], ; fax [phone]. SS phoned and faxed discharge orders and referral to [facility]. Pt's RN notified.
[2019-06-10] MEDS ORDERED: INSULIN LISPRO 300 UNITS/3 ML VIAL. SQ SCH (13:15)
[2019-06-10] MEDS ORDERED: INSULIN LISPRO 300 UNITS/3 ML VIAL. SQ ONE ×2 (13:30→14:00)
[2019-06-10 14:02] LABS: BILIRUBIN,URINE NEGATIVE (NEG); CLARITY,URINE CLEAR; COLOR,URINE YELLOW; NITRITE,URINE NEGATIVE (NEG); PROTEIN,URINE NEGATIVE (NEG-TRACE); UROBILINOGEN,URINE 0.2 mg/dL (0.2 mg/dL)
[2019-06-10 14:12] LABS: BACTERIA,URINE MANY /HPF (0-FEW); SQUAMOUS EPITHELIAL CELL,UR OCC /LPF; WBC,URINE >40 /HPF (0-4)
--- NOTE | 2019-06-10 14:37 | NUR ---
Discharge Note: [facility]AK[facility] Discharge instructions and discharge home medications reviewed with Patient and a copy given. All questions have been answered and understanding verbalized. The following instructions and handouts were given: coronary angioplasty, hematoma, prasugrel Patient discharged to home with home health via wheelchair
--- NOTE | 2019-06-10 14:53 | PDOC ---
CARDIO Progress Notes Date and Time Date of Service 06/10/2019 Time of Evaluation 1430 Vitals Vitals Vital Signs Date Time Temp Pulse Resp B/P (MAP) Pulse Ox O2 Delivery O2 Flow Rate FiO2 06/10/19 11:50 95 Room Air 06/10/19 11:00 97.5 81 16 105/50 (68) 97.5 06/09/19 21:13 3.0 Weight Weight [ ] Input and Output Intake and Output Intake and Output 06/10/19 07:00 Intake Total 2600 ml Output Total 1000 ml Balance 1600 ml Intake Oral 600 ml IV Total 2000 ml Output Urine Total 1000 ml # Voids 1 Laboratory Labs Laboratory Tests Test 06/09/19 14:50 06/09/19 16:50 06/09/19 20:56 06/10/19 04:05 White Blood Count 13.8 x10^3/uL (4.0-11.0) 21.4 x10^3/uL (4.0-11.0) Red Blood Count 2.46 x10^6/uL (3.50-5.40) 3.72 x10^6/uL (3.50-5.40) Hemoglobin 7.0 g/dL (12.0-15.5) 11.1 g/dL (12.0-15.5) Hematocrit 22.8 % (36.0-47.0) 33.4 % (36.0-47.0) Mean Corpuscular Volume 93 fL (79-100) 90 fL (79-100) Mean Corpuscular Hemoglobin 29 pg (25-35) 30 pg (25-35) Mean Corpuscular Hemoglobin Concent 31 g/dL (31-37) 33 g/dL (31-37) Red Cell Distribution Width 16.2 % (11.5-14.5) 16.0 % (11.5-14.5) Platelet Count 497 x10^3/uL (140-400) 541 x10^3/uL (140-400) Glucose (Fingerstick) 243 mg/dL (70-99) 311 mg/dL (70-99) Neutrophils (%) (Auto) 71 % (31-73) Lymphocytes (%) (Auto) 19 % (24-48) Monocytes (%) (Auto) 7 % (0-9) Eosinophils (%) (Auto) 3 % (0-3) Basophils (%) (Auto) 1 % (0-3) Neutrophils # (Auto) 15.1 x10^3/uL (1.8-7.7) Lymphocytes # (Auto) 4.1 x10^3/uL (1.0-4.8) Monocytes # (Auto) 1.4 x10^3/uL (0.0-1.1) Eosinophils # (Auto) 0.6 x10^3/uL (0.0-0.7) Basophils # (Auto) 0.1 x10^3/uL (0.0-0.2) Segmented Neutrophils % 73 % (35-66) Band Neutrophils % 6 % (0-9) Lymphocytes % 16 % (24-48) Monocytes % 4 % (0-10) Eosinophils % 1 % (0-5) Platelet Estimate Increased (ADEQUATE) Large Platelets Occ Anisocytosis Slight Sodium Level 140 mmol/L (136-145) Potassium Level 4.5 mmol/L (3.5-5.1) Chloride Level 105 mmol/L (98-107) Carbon Dioxide Level 18 mmol/L (21-32) Anion Gap 17 (6-14) Blood Urea Nitrogen 31 mg/dL (7-20) Creatinine 1.3 mg/dL (0.6-1.0) Estimated GFR (Cockcroft-Gault) 40.2 Glucose Level 310 mg/dL (70-99) Calcium Level 9.9 mg/dL (8.5-10.1) Thyroid Stimulating Hormone (TSH) 8.325 uIU/mL (0.358-3.74) Test 06/10/19 08:06 06/10/19 12:44 06/10/19 13:45 Glucose (Fingerstick) 308 mg/dL (70-99) 405 mg/dL (70-99) Urine Collection Type Unknown Urine Color Yellow Urine Clarity Clear Urine pH 5.0 Urine Specific Sargent 1.020 Urine Protein Negative mg/dL (NEG-TRACE) Urine Glucose (UA) >=1000 mg/dL (NEG) Urine Ketones (Stick) Negative mg/dL (NEG) Urine Blood Moderate (NEG) Urine Nitrite Negative (NEG) Urine Bilirubin Negative (NEG) Urine Urobilinogen Dipstick 0.2 mg/dL (0.2 mg/dL) Urine Leukocyte Esterase Large (NEG) Urine RBC 11-20 /HPF (0-2) Urine WBC >40 /HPF (0-4) Urine Squamous Epithelial Cells Occ /LPF Urine Bacteria Many /HPF (0-FEW) Physical Exam Heart: S1S2, no gallops, no murmurs Assessment Assessment Pt DCd to home before getting seen, Also pt is + for UTI with leukocytosis, Discussed with RN and will notify PCP for coverage. No arrhythmias. 1. Unstable angina: S/P PTCA to LAD due to ISR 2. Acute on chronic systolic heart failure: compensated. RA o2 satat 95% 4. ICM; LVEF 40% 5. Hypertension; controlled 6. Hyperlipidemia 7. Anemia: no obvious bleed Hgb was 7 component of hemodilution. S/P Transfusion Hgb stable at 11. 8. AVIVA: back to baseline Recommendations 1. Reviewed DC meds, discussed with RN. Follow up in office. Since pt left. will do TTE as an outpt. 2. ASA/effient 3. Secondary prevention, toprol, lisinopril, aldactone. statin DARRION GARCIA APRN Jun 10, 2019 14:53
--- NOTE | 2019-06-10 15:00 | NUR ---
Pt called and alerted they have a UTI and a prescription Ciprofloxacin 500 mg BID for 5 days as ordered by Dr. Jesus. Also made aware that cardiology would like them to stop taking carvedilol and only continue taking the metoprolol.
[2019-07-09] MEDS ORDERED: GALCANEZUMAB GNLM 120 MG SQ SCH (09:00)
== END 2019-06-10 14:30 | disposition home health service (06) | DRG 250 ==
LOC: 2 SOUTH 17:32
PROVIDERS: ADMIT Internal Medicine; ATTEND Internal Medicine
PROC: B2111ZZ Fluoroscopy of Multiple Coronary Arteries using Low Osmolar Contrast (ICD-10-PCS; principal; 2019-06-09)
PROC: 02703ZZ Dilation of Coronary Artery, One Artery, Percutaneous Approach (ICD-10-PCS; 2019-06-09)
PROC: 4A023N7 Measurement of Cardiac Sampling and Pressure, Left Heart, Percutaneous Approach (ICD-10-PCS; 2019-06-09)
PROC: 30233N1 Transfusion of Nonautologous Red Blood Cells into Peripheral Vein, Percutaneous Approach (ICD-10-PCS; 2019-06-09)
DX: I21.4 Non-ST elevation (NSTEMI) myocardial infarction (principal); I50.43 Acute on chronic combined systolic (congestive) and diastolic (congestive) heart failure; N17.9 Acute kidney failure, unspecified; N39.0 Urinary tract infection, site not specified; I25.110 Atherosclerotic heart disease of native coronary artery with unstable angina pectoris; D64.9 Anemia, unspecified; E11.9 Type 2 diabetes mellitus without complications; E78.5 Hyperlipidemia, unspecified; F32.9 Major depressive disorder, single episode, unspecified; G47.00 Insomnia, unspecified; I11.0 Hypertensive heart disease with heart failure; I27.20 Pulmonary hypertension, unspecified; F41.9 Anxiety disorder, unspecified; J44.9 Chronic obstructive pulmonary disease, unspecified; Z82.49 Family history of ischemic heart disease and other diseases of the circulatory system; Z90.710 Acquired absence of both cervix and uterus; Z98.61 Coronary angioplasty status; I25.2 Old myocardial infarction; Z90.49 Acquired absence of other specified parts of digestive tract; Z88.5 Allergy status to narcotic agent; Z88.8 Allergy status to other drugs, medicaments and biological substances
CPT/HCPCS: 36415; 80048; 80053; 80061; 81001; 82962; 83036; 84443; 84484; 85007; 85025; 85027; 85347; 85520; 86850; 86900; 86901; 86920; 92920; 93458; 94640; 99152; 99153; C1725; C1769; C1887; C1892; J1644; J1815; J2250; J3010; J7030; J7620; P9016; Q0163; Q9967; 97530; G0378

== ENCOUNTER 2020-05-14 17:56 | Inpatient (IN) | payer MEDICARE, OTHER ==
[~2020-05-14] VITALS: Ht 144.8 cm; Wt 68.4 kg
[~2020-05-14 17:56] MED LIST changes: +AMLO-186 PO; -AMLO5TAB10 PO; +BUPR150T21 PO; -BUPR150T6 PO; -CETI10TA24 PO; +CETI10TA74 PO; -DICL100G18 TP; +DICL100G54 TP; +ERYT250C33 PO; -ERYT250C8 PO; +GALC120P SQ; -LISI-338 PO; +LISI-517 PO; +MIRT-36 PO; +MIRT-7 PO; -MIRT15TA PO; -MIRT15TA3 PO; +MULT-445 PO; -MULT1TAB52 PO; +PRAS10TA9 PO
[2020-05-14] MEDS ORDERED: IODIXANOL 320 MG/ML 100 ML VIAL. ONE (18:14)
[2020-05-14] MEDS ORDERED: LIDOCAINE 1% Multi-Dose 20 ML VIAL. ONE (18:14)
[2020-05-14] MEDS ORDERED: IV NORMAL SALINE 1000ML BAG 1,000 ML IV SCH (18:15)
[2020-05-14] MEDS ORDERED: fentaNYL PF VIAL 100 MCG/2 ML VIAL ONE (18:15)
[2020-05-14] MEDS ORDERED: MIDAZOLAM HCL/PF 2 MG/2 ML VIAL. ONE (18:16)
[2020-05-14] MEDS ORDERED: ASPIRIN CHEWABLE 81 MG TABLET. PO ONE (18:30)
[2020-05-14 18:32] LABS: BASO # 0.2 x10^3/uL (0.0-0.2); BASO % 1 % (0-3); EOS # 0.7 x10^3/uL (0.0-0.7); EOS % 2 % (0-3); HEMATOCRIT 40.5 % (36.0-47.0); HEMOGLOBIN 12.4 g/dL (12.0-15.5); LYMPH # 6.5 x10^3/uL (1.0-4.8); LYMPH % 22 % (24-48); MEAN CORPUSCULAR HEMOGLOBIN 29 pg (25-35); MEAN CORPUSCULAR HGB CONC 31 g/dL (31-37); MEAN CORPUSCULAR VOLUME 94 fL (79-100); MONO # 1.5 x10^3/uL (0.0-1.1); MONO % 5 % (0-9); NEUT # 20.2 x10^3/uL (1.8-7.7); NEUT % 70 % (31-73); PLATELET COUNT 322 x10^3/uL (140-400); RED BLOOD COUNT 4.29 x10^6/uL (3.50-5.40); WHITE BLOOD COUNT 29.1 x10^3/uL (4.0-11.0)
[2020-05-14 18:35] LABS: CREATININE 2.2 mg/dL (0.6-1.0); GFR 21.8; POTASSIUM 4.5 mmol/L (3.5-5.1)
[2020-05-14 18:41] LABS: ALBUMIN 3.3 g/dL (3.4-5.0); DIRECT BILIRUBIN 0.1 mg/dL (0.0-0.2); MAGNESIUM 2.8 mg/dL (1.8-2.4); TOTAL BILIRUBIN 0.6 mg/dL (0.2-1.0); TOTAL PROTEIN 7.8 g/dL (6.4-8.2)
--- NOTE | 2020-05-14 18:42 | RAD ---
Single view chest dated 05/14/2020. Comparison made to 06/18/2019. Clinical data indication: Chest pain. FINDINGS: Single supine portable exam performed. Heart and mediastinal contours are stable. Lung volumes are lo w, limiting evaluation. There is some prominent perihilar and bibasilar linear markings, similar to p rior study. No consolidation or pleural effusion. No pneumothorax. IMPRESSION: No acute radiographic abnormality. Stable findings compared to 06/18/2019. Electronically signed by: Jas Hardwick MD (05/14/2020 6:40 PM) [id number]
[2020-05-14 18:59] LABS: BASE EXCESS COOX -16 mmol/L (-3-3); HCO3 COOX 12 mmol/L (21-28); METHEMOGLOBIN 0.1 % (0.0-1.9); OXYHEMOGLOBIN 90.6 %; PCO2 COOX 34 mmHg (35-46); PO2 COOX 73 mmHg (65-108); SAT O2 COOX 91 % (92-99)
[2020-05-14] MEDS ORDERED: NOREPINEPHRINE VIAL 8 MG in IV DEXTROSE 5% 250 ML IV ONE ×2 (19:00→22:15)
[2020-05-14 19:08] LABS: PROTHROMBIN TIME PATIENT 15.7 SEC (11.7-14.0)
[2020-05-14] MEDS ORDERED: PIPERACILLIN/TAZOBACTAM 3.375 GM in IV NORMAL SALINE 50ML 50 ML IV ONE (19:15)
[2020-05-14] MEDS ORDERED: IV NORMAL SALINE 1000ML BAG 1,000 ML IV ONE (19:15)
[2020-05-14] MEDS ORDERED: PIPERACILLIN/TAZOBACTAM 2.25 GM in IV NORMAL SALINE 50ML 50 ML IV ONE (19:15)
[2020-05-14] MEDS ORDERED: VANCOMYCIN 1.25 GM in IV NORMAL SALINE 250ML 250 ML IV ONE (19:15)
--- NOTE | 2020-05-14 19:24 | PHYS DOC ---
Past Medical History Past Medical History: Asthma, CAD, COPD, Diabetes-Type I, High Cholesterol, Hypertension, ID, MRSA, Seizure, Other Additional Past Medical Histor: unknown Past Surgical History: Angioplasty, Hysterectomy, Splenectomy, Other Additional Past Surgical Histo: HERNIA,2 STENTS Smoking Status: Former Smoker Alcohol Use: None Drug Use: None Adult General Chief Complaint Chief Complaint: CHEST PAIN HPI HPI Patient is a 74 year old female with an extensive past medical history which does include previous history of coronary artery disease requiring stents, hypertension, diabetes, end-stage renal disease now presenting emergency depart ment for new onset of chest pain. Patient states that approximately 3 hours prior to arrival she was walking her dog truck with her dog and then had new onset of mid sternal chest pain. Called EMS. Per EMS on arrival patient was complaining of chest pain but also had an oxygen saturation approximately 80%. Patient is not on home oxygen. They were put on 2 L nasal cannula however she was still remained hypoxic until she was placed on a nonrebreather. Patient resting that she still having significant substernal chest pain but denies any radiation. Does admit to new onset of midepigastric abdominal pain and nausea as well and notes pain appears to be radiating into her belly. Denies any recent fever, chills, cough. Was recently tested negative for COVID-19 Review of Systems Review of Systems Constitutional: Denies fever or chills [] Eyes: Denies change in visual acuity, redness, or eye pain [] HENT: Denies nasal congestion or sore throat [] Respiratory: Denies cough or shortness of breath [] Cardiovascular: No additional information not addressed in HPI [] GI: Denies abdominal pain, nausea, vomiting, bloody stools or diarrhea [] : Denies dysuria or hematuria [] Musculoskeletal: Denies back pain or joint pain [] Integument: Denies rash or skin lesions [] Neurologic: Denies headache, focal weakness or sensory changes [] Endocrine: Denies polyuria or polydipsia [] All other systems were reviewed and found to be within normal limits, except as documented in this note. Current Medications Current Medications Current Medications Medications (Trade) Dose Ordered Sig/Morgan Start Time Stop Time Status Last Admin Dose Admin Aspirin (Aspirin Chewable) 162 mg 1X ONCE 05/14/20 18:30 05/14/20 18:31 DC Dopamine HCl/ Dextrose 250 ml @ 13.538 mls/ hr 1X ONCE 05/14/20 18:30 05/15/20 03:03 DC 05/14/20 18:19 13.538 MLS/HR Fentanyl Citrate (Fentanyl 2ml Vial) 100 mcg STK-MED ONCE 05/14/20 18:15 05/14/20 18:16 DC Heparin Sodium (Porcine) (Heparin Sodium) 1,800 unit PRN Q6HRS PRN 05/14/20 22:15 Heparin Sodium/ Dextrose 250 ml @ 0 mls/hr CONT PRN 05/14/20 22:15 05/14/20 23:10 8.8 MLS/HR Heparin Sodium/ Sodium Chloride 500 ml @ As Directed STK-MED ONCE 05/14/20 18:19 05/14/20 18:19 DC Info (CONTRAST GIVEN -- Rx MONITORING) 1 each PRN DAILY PRN 05/14/20 20:15 05/16/20 20:14 Iodixanol (Visipaque 320) 100 ml STK-MED ONCE 05/14/20 18:14 05/14/20 18:15 DC Iohexol (Omnipaque 350 Mg/ml) 100 ml 1X ONCE 05/14/20 20:00 05/14/20 20:01 DC 05/14/20 20:03 100 ML Lidocaine HCl (Lidocaine 1% 20ml Vial) 20 ml STK-MED ONCE 05/14/20 18:14 05/14/20 18:15 DC Midazolam HCl (Versed) 2 mg STK-MED ONCE 05/14/20 18:16 05/14/20 18:16 DC Norepinephrine Bitartrate 8 mg/ Dextrose 258 ml @ 13.971 mls/ hr 1X ONCE 05/14/20 22:15 05/15/20 07:03 DC 05/15/20 04:25 79.9 MLS/HR Ondansetron HCl (Zofran) 4 mg PRN Q8HRS PRN 05/14/20 22:00 05/15/20 21:59 Piperacillin Sod/ Tazobactam Sod 2.25 gm/Sodium Chloride 50 ml @ 100 mls/hr 1X ONCE 05/14/20 19:15 05/14/20 19:44 DC 05/14/20 19:58 100 MLS/HR Piperacillin Sod/ Tazobactam Sod 3.375 gm/Sodium Chloride 50 ml @ 100 mls/hr 1X ONCE 05/14/20 19:15 05/14/20 19:44 UNV Sodium Bicarbonate 150 meq/Sterile Water 1,150 ml @ 125 mls/hr 1X ONCE 05/14/20 19:30 05/15/20 04:41 DC 05/14/20 19:25 125 MLS/HR Sodium Chloride 1,000 ml @ 1,000 mls/hr 1X ONCE 05/14/20 19:15 05/14/20 20:14 DC 05/14/20 19:27 1,000 MLS/HR Vancomycin HCl 1.25 gm/Sodium Chloride 250 ml @ 166.667 mls/hr 1X ONCE 05/14/20 19:15 05/14/20 20:44 DC 05/14/20 20:24 166.667 MLS/HR Vasopressin 20 unit/Dextrose 101 ml @ 11.882 mls/ hr 1X ONCE 05/14/20 20:15 05/15/20 04:45 DC 05/14/20 20:36 11.882 MLS/HR Allergies Allergies Allergies Coded Allergies Type Severity Reaction Last Updated Verified grapefruit Allergy Intermediate 01/04/18 Yes hydromorphone Allergy Intermediate 01/04/18 Yes metoclopramide Allergy Intermediate 01/04/18 Yes morphine Allergy Intermediate BROKE OUT WITH RASH 01/04/18 Yes phenytoin Allergy Intermediate 01/04/18 Yes temazepam Allergy Intermediate 01/04/18 Yes trazodone Allergy Intermediate 01/04/18 Yes zolpidem Allergy Intermediate 01/04/18 Yes I S O L A T I O N *CONTACT* Allergy Unknown 11/11/18 Yes Physical Exam Physical Exam Constitutional: Well developed, well nourished, no acute distress, non-toxic appearance. [] HENT: Normocephalic, atraumatic, bilateral external ears normal, oropharynx moist, no oral exudates, nose normal. [] Eyes: PERRLA, EOMI, conjunctiva normal, no discharge. [] Neck: Normal range of motion, no tenderness, supple, no stridor. [] Cardiovascular:Heart rate regular rhythm, no murmur [] Lungs & Thorax: Bilateral breath sounds clear to auscultation [] Abdomen: Bowel sounds normal, soft, no tenderness, no masses, no pulsatile masses. [] Skin: Warm, dry, no erythema, no rash. [] Back: No tenderness, no CVA tenderness. [] Extremities: No tenderness, no cyanosis, no clubbing, ROM intact, no edema. [] Neurologic: Alert and oriented X 3, normal motor function, normal sensory function, no focal deficits noted. [] Psychologic: Affect normal, judgement normal, mood normal. [] Current Patient Data Vital Signs Vital Signs Date Time Temp Pulse Resp B/P (MAP) Pulse Ox O2 Delivery O2 Flow Rate FiO2 05/14/20 22:17 116 26 114/45 (68) 96 NonRebreather Mask 15.0 Lab Values Laboratory Tests Test 05/14/20 18:14 05/14/20 18:15 05/14/20 19:05 05/14/20 19:20 White Blood Count 29.1 x10^3/uL (4.0-11.0) H Red Blood Count 4.29 x10^6/uL (3.50-5.40) Hemoglobin 12.4 g/dL (12.0-15.5) Hematocrit 40.5 % (36.0-47.0) Mean Corpuscular Volume 94 fL (79-100) Mean Corpuscular Hemoglobin 29 pg (25-35) Mean Corpuscular Hemoglobin Concent 31 g/dL (31-37) Red Cell Distribution Width 17.0 % (11.5-14.5) H Platelet Count 322 x10^3/uL (140-400) Neutrophils (%) (Auto) 70 % (31-73) Lymphocytes (%) (Auto) 22 % (24-48) L Monocytes (%) (Auto) 5 % (0-9) Eosinophils (%) (Auto) 2 % (0-3) Basophils (%) (Auto) 1 % (0-3) Neutrophils # (Auto) 20.2 x10^3/uL (1.8-7.7) H Lymphocytes # (Auto) 6.5 x10^3/uL (1.0-4.8) H Monocytes # (Auto) 1.5 x10^3/uL (0.0-1.1) H Eosinophils # (Auto) 0.7 x10^3/uL (0.0-0.7) Basophils # (Auto) 0.2 x10^3/uL (0.0-0.2) Segmented Neutrophils % 50 % (35-66) Band Neutrophils % 3 % (0-9) Lymphocytes % 33 % (24-48) Monocytes % 8 % (0-10) Eosinophils % 5 % (0-5) Metamyelocytes % 1 % (0-0) H Toxic Granulation Platelet Estimate Adequate (ADEQUATE) Platelet Clumps, EDTA Present Large Platelets Present Polychromasia Present Poikilocytosis Mod Anisocytosis Slight Microcytosis Slight Helmet Cells Occ Crenated Cell Present Acanthocytes (Spur Cells) Occ RBC Morphology Bizarre Forms Prothrombin Time 15.7 SEC (11.7-14.0) H Prothrombin Time INR 1.3 (0.8-1.1) H D-Dimer (Kaila) > 20.00 ug/mlFEU Sodium Level 135 mmol/L (136-145) L Potassium Level 4.5 mmol/L (3.5-5.1) Chloride Level 101 mmol/L (98-107) Carbon Dioxide Level 15 mmol/L (21-32) L Anion Gap 19 (6-14) H Blood Urea Nitrogen 33 mg/dL (7-20) H Creatinine 2.2 mg/dL (0.6-1.0) H Estimated GFR (Cockcroft-Gault) 21.8 Glucose Level 402 mg/dL (70-99) H Calcium Level 10.0 mg/dL (8.5-10.1) Magnesium Level 2.8 mg/dL (1.8-2.4) H Total Bilirubin 0.6 mg/dL (0.2-1.0) Direct Bilirubin 0.1 mg/dL (0.0-0.2) Aspartate Amino Transferase (AST) 28 U/L (15-37) Alanine Aminotransferase (ALT) 28 U/L (14-59) Alkaline Phosphatase 228 U/L (46-116) H Troponin I Quantitative < 0.017 ng/mL (0.000-0.055) UM-Ohh-M-Type Natriuretic Peptide 368 pg/mL (0-124) H Total Protein 7.8 g/dL (6.4-8.2) Albumin 3.3 g/dL (3.4-5.0) L Lipase 265 U/L (73-393) O2 Saturation 91 % (92-99) L Arterial Blood pH 7.15 (7.35-7.45) *L Arterial Blood pCO2 at Patient Temp 34 mmHg (35-46) L Arterial Blood pO2 at Patient Temp 73 mmHg (65-108) Arterial Blood HCO3 12 mmol/L (21-28) L Arterial Blood Base Excess -16 mmol/L (-3-3) L Oxyhemoglobin 90.6 % Methemoglobin 0.1 % (0.0-1.9) Carbon Monoxide, Quantitative 0.3 % (0.0-1.9) FiO2 100 SARS-CoV-2 Antigen (Rapid) Negative (NEGATIVE) Lactic Acid Level 2.9 mmol/L (0.4-2.0) H Test 05/14/20 20:20 05/14/20 21:35 Urine Collection Type U cath Urine Color Yellow Urine Clarity Clear Urine pH 5.5 (<5.0-8.0) Urine Specific Violet >=1.030 (1.000-1.030) Urine Protein 100 mg/dL (NEG-TRACE) Urine Glucose (UA) >=1000 mg/dL (NEG) Urine Ketones (Stick) Negative mg/dL (NEG) Urine Blood Negative (NEG) Urine Nitrite Negative (NEG) Urine Bilirubin Small (NEG) Urine Urobilinogen Dipstick 0.2 mg/dL (0.2 mg/dL) Urine Leukocyte Esterase Negative (NEG) Urine RBC Occ /HPF (0-2) Urine WBC 1-4 /HPF (0-4) Urine Squamous Epithelial Cells Few /LPF Urine Amorphous Sediment Present /HPF Urine Bacteria Few /HPF (0-FEW) Urine Hyaline Casts Occasional /HPF Troponin I Quantitative 0.211 ng/mL (0.000-0.055) Laboratory Tests 05/14/20 18:14 Laboratory Tests 05/14/20 18:[address] elevation in inferior leads II, III and AVF as well as small change in V6, normal QRS, intervals ok Radiology/Procedures Radiology/Procedures NAD Course & Med Decision Making Course & Med Decision Making Pertinent Labs and Imaging studies reviewed. (See chart for details) 74F presenting the emergency department initially with concern for acute ST elevation ID due to new onset of chest pain and an EKG performed by EMS that did demonstrate ST elevations. However on arrival the patient stated that she was having chest pain with also with onset of abdominal pain EKG on arrival did not demonstrate any concise evidence of STEMI. Despite this the STEMI team was activated and arrived and after reviewing the initial EKG with the capsule filler on-call and comparing this old EKGs there is no clear evidence that this is a STEMI. Patient also arrived initially hypoxic with worsening pain which does raise concern for differential including pulmonary embolism, pneumothorax, aort ic dissection or other intra-abdominal issue. After initial review of the patient's labs she was noted to have a white count of 29 and a pH of 7.1. Patient also noted to be acutely hypotensive and she was started on IV pressor support. Also concern for sepsis and so therefore sepsis criteria was started with identification of possible sepsis at 19:05. At this time due to the patient's complicated history and ongoing differential planning to obtain a CT scan of the chest abdomen pelvis with IV contrast. I had a discussion with the patient about the risk and benefits of this especially cons idering her history of renal failure which she states that she is gotten before without any issues and agrees that the risk of where the benefits. I have also discussed this with radiology is in agreement. Dragon Disclaimer Dragon Disclaimer This electronic medical record was generated, in whole or in part, using a voice recognition dictation system. Departure Departure Referrals: NIDIA SANDERS MD (PCP) STEPHANIE MORILLO MD May 14, 2020 19:24
[2020-05-14 19:27] LABS: D-DIMER > 20.00 ug/mlFEU (0.00-0.50)
[2020-05-14] MEDS ORDERED: SODIUM BICARBONATE VIAL 150 MEQ in IV STERILE WATER 1,000 ML IV ONE (19:30)
[2020-05-14 19:42] LABS: % BANDS 3 % (0-9); % EOS 5 % (0-5); % LYMPHS 33 % (24-48); % METAS 1 % (0-0); % MONOS 8 % (0-10); % SEGS 50 % (35-66)
[2020-05-14 19:43] LABS: PLT ESTIMATE ADEQUATE (ADEQUATE)
[2020-05-14 19:44] LABS: PLATELET CLUMP PRESENT; POLYCHROMASIA PRESENT
[2020-05-14 19:48] LABS: ACANTHOCYTES OCC; ANISOCYTOSIS SLIGHT; HELMET CELLS OCC; MICROCYTOSIS SLIGHT; POIKILOCYTOSIS MOD
--- NOTE | 2020-05-14 19:48 | PDOC2 ---
CONSULT Date of Consult Date of Consult DATE: 05/14/20 TIME: 19:32 Reason for Consult Reason for Consult: Chest pain, coronary artery disease Referring Physician Referring Physician: Dr. George Identification/Chief Complaint Chief Complaint Chest and abdominal pain Source Source: Chart review, Patient History of Present Illness Reason for Visit: The patient is a 74-year-old female with a history of coronary artery disease w ith previous stenting, diabetes mellitus, hyperlipidemia, asthma and a previous possible seizure disorder who while playing with her dog approximately 2 hours ago developed chest and abdominal discomfort. The patient states when the dog pulled on her rope she developed shoulder, chest and abdominal discomfort. Paramedics were called and the patient was found to be hypoxic and transported to the emergency room. EKG in route showed ST elevation anteriorly and a STEMI protocol was initiated. Upon arrival at the emergency room the patient's systolic blood pressure was 60 mmHg. She was started on IV fluids and pressors. A repeat EKG showed less severe anterior ST elevation and an inferior Q wave. We obtained several previous EKGs which did show prior ST elevation and an inferior Q wave. Initial chest x-ray showed no acute changes. Significant lab findings were troponin of less than 0.17, white count 29.1, glucose of 402, BUN of 33 and a creatinine of 2.2. An ABG showed a pH of 7.151, PCO2 of 33 and PO2 of 73. The patient has a history of multivessel coronary disease. A catheterization on 11/01/2017 showed a proximal 70 to 80% LAD lesion and a distal 80 to 90% apical LAD lesion which were both treated with drug-eluting stents. More recently the patient had a heart catheterization on 06/09/2019 which found a small LAD and a mid occlusion of her stent with in-stent restenosis. The distal stent had a 90% with in-stent restenosis. The mid lesion was dilated with a 2.0 x [address] scan in May 2019 showed multiple abdominal wall hernias with small and large bowel involvement but no obstruction. Post fluids and pressors the patient is feeling better. She now states her chest pain has resolved. She states she continues to have pain in her lower abdomen. Past Medical History Cardiovascular: CAD, HTN, Hyperlipidemia Pulmonary: Asthma, Bronchitis, COPD, Pneumonia, Other CENTRAL NERVOUS SYSTEM: Migraine, Other GI: Constipation, Diverticulosis, GERD, Other (Abdominal hernias) Heme/Onc: Anemia NOS Psych: Anxiety, Depression, Other Musculoskeletal: No pain Rheumatologic: No pertinent hx Renal/: Chronic renal insuff Endocrine: Diabetes, Osteoporosis Past Surgical History Past Surgical History: Appendectomy, Cholecystectomy, Hernia Repair, Tonsil lectomy, Other (Coronary stents) Family History Family History: Coronary Artery Disease Social History Social History: Parent Quit ALCOHOL: none Drugs: None Lives: with Family Current Medications Current Medications Current Medications Iodixanol (Visipaque 320) 100 ml STK-MED ONCE .ROUTE ; Start 05/14/20 at 18:14; Stop 05/14/20 at 18:15; Status DC Lidocaine HCl (Lidocaine 1% 20ml Vial) 20 ml STK-MED ONCE .ROUTE ; Start 05/14/20 at 18:14; Stop 05/14/20 at 18:15; Status DC Heparin Sodium/ Sodium Chloride 500 ml @ As Directed STK-MED ONCE .ROUTE ; Start 05/14/20 at 18:15; Stop 05/14/20 at 18:15; Status DC Fentanyl Citrate (Fentanyl 2ml Vial) 100 mcg STK-MED ONCE .ROUTE ; Start 05/14/20 at 18:15; Stop 05/14/20 at 18:16; Status DC Midazolam HCl (Versed) 2 mg STK-MED ONCE .ROUTE ; Start 05/14/20 at 18:16; Stop 05/14/20 at 18:16; Status DC Dopamine HCl/ Dextrose 250 ml @ As Directed STK-MED ONCE IV ; Start 05/14/20 at 18:17; Stop 05/14/20 at 18:18; Status DC Sodium Chloride 1,000 ml @ 1,000 mls/hr Q1H IV Last administered on 05/14/20at 18:14; Start 05/14/20 at 18:15; Stop 05/14/20 at 19:14; Status DC Heparin Sodium/ Sodium Chloride 500 ml @ As Directed STK-MED ONCE .ROUTE ; Start 05/14/20 at 18:19; Stop 05/14/20 at 18:19; Status DC Dopamine HCl/ Dextrose 250 ml @ 13.538 mls/ hr 1X ONCE IV Last administered on 05/14/20at 18:19; Start 05/14/20 at 18:30; Stop 05/15/20 at 12:57 Aspirin (Aspirin Chewable) 162 mg 1X ONCE PO ; Start 05/14/20 at 18:30; Stop 05/14/20 at 18:31; Status DC Aspirin (Aspirin Chewable) 81 mg DAILYWBKFT PO ; Start 05/15/20 at 08:00 Norepinephrine Bitartrate 8 mg/ Dextrose 258 ml @ 13.971 mls/ hr 1X ONCE IV Last administered on 05/14/20at 18:50; Start 05/14/20 at 19:00; Stop 05/15/20 at 13:28 Sodium Bicarbonate 150 meq/Sterile Water 1,150 ml @ 125 mls/hr 1X ONCE IV Last administered on 05/14/20at 19:25; Start 05/14/20 at 19:30; Stop 05/15/20 at 04:41 Sodium Chloride 1,000 ml @ 1,000 mls/hr 1X ONCE IV Last administered on 05/14/20at 19:27; Start 05/14/20 at 19:15; Stop 05/14/20 at 20:14 Piperacillin Sod/ Tazobactam Sod 3.375 gm/Sodium Chloride 50 ml @ 100 mls/hr 1X ONCE IV ; Start 05/14/20 at 19:15; Stop 05/14/20 at 19:44; Status UNV Vancomycin HCl 1.25 gm/Sodium Chloride 250 ml @ 166.667 mls/hr 1X ONCE IV ; Start 05/14/20 at 19:15; Stop 05/14/20 at 20:44 Piperacillin Sod/ Tazobactam Sod 2.25 gm/Sodium Chloride 50 ml @ 100 mls/hr 1X ONCE IV ; Start 05/14/20 at 19:15; Stop 05/14/20 at 19:44 Active Scripts Active Effient (Prasugrel Hcl) 10 Mg Tablet 10 Mg PO DAILYWBKFT 30 Days Atorvastatin Calcium 40 Mg Tablet 80 Mg PO QHS Reported Furosemide 20 Mg Tablet 1 Tab PO DAILY Bupropion Xl (Bupropion Hcl) 150 Mg Tab.er.24h 150 Mg PO BID Tramadol Hcl 50 Mg Tablet 50 Mg PO Q4HRS PRN Cyclobenzaprine Hcl 5 Mg Tablet 5 Mg PO TID PRN Montelukast Sodium Tablet (Montelukast Sodium) 10 Mg Tablet 10 Mg PO HS Spironolactone 25 Mg Tablet 1 Tab PO DAILY Ranitidine Hcl 150 Mg Capsule 150 Mg PO DAILY Naproxen 500 Mg Tablet 1 Tab PO BID 30 Days Abilify (Aripiprazole) 2 Mg Tablet 2 Mg PO DAILY Tegretol (Carbamazepine) 200 Mg Tablet 200 Mg PO QHS Metoprolol Succinate ( Xl ) (Metoprolol Succinate) 25 Mg Tab.er.24h 12.5 Mg PO DAILY Klonopin (Clonazepam) 0.5 Mg Tablet 0.5 Mg PO PRN BID PRN Fish Oil 1,000 Mg Capsule ([place]-3 Fatty Acids/Fish Oil) 1 Each Capsule 1 Each PO TID Cymbalta (Duloxetine Hcl) 60 Mg Capsule.dr 120 Mg PO DAILY Loperamide (Loperamide Hcl) 2 Mg Capsule 2 Mg PO Zyrtec (Cetirizine Hcl) 10 Mg Tablet 1 Tab PO DAILY Zonisamide 100 Mg Capsule 100 Mg PO TID Protonix (Pantoprazole Sodium) 20 Mg Tablet.dr 40 Mg PO DAILY Nortriptyline Hcl 25 Mg Capsule 50 Mg PO HS Duoneb 0.5-3(2.5) Mg/3 Ml (Albuterol/Ipratropium) 3 Ml Ampul.neb 3 Ml NEB TID Multivitamins (Multivitamin) 1 Each Tablet 1 Tab PO DAILY Mirtazapine 15 Mg Tablet 30 Mg PO QHS Lisinopril 5 Mg Tablet 1 Tab PO DAILY Vitamin B-12 (Cyanocobalamin (Vitamin B-12)) 1,000 Mcg Tablet 1 Tab PO DAILY Vitamin D (Cholecalciferol (Vitamin D3)) 1,000 Unit Capsule 1 Cap PO DAILY Ascorbic Acid 500 Mg Tablet 500 Mg PO BID Voltaren (Diclofenac Sodium) 100 Gm Gel..gram. 100 Gm TP QID Levemir Flextouch (Insulin Detemir) 100 Unit/1 Ml Insuln.pen 36 Unit SQ BID Flonase Allergy Relief (Fluticasone Propionate) 9.9 Ml [place].susp 2 Spr NS DAILY Aspir 81 (Aspirin) 81 Mg Tablet.dr 81 Mg PO DAILY Ropinirole Hcl 1 Mg Tablet 1 Mg PO QHS Novolog (Insulin Aspart) 100 Unit/1 Ml Cartridge 6 Unit SQ TIDAC Allergies Allergies: Coded Allergies: grapefruit (Verified Allergy, Intermediate, 01/04/18) hydromorphone (Verified Allergy, Intermediate, 01/04/18) metoclopramide (Verified Allergy, Intermediate, 01/04/18) morphine (Verified Allergy, Intermediate, BROKE OUT WITH RASH, 01/04/18) phenytoin (Verified Allergy, Intermediate, 01/04/18) temazepam (Verified Allergy, Intermediate, 01/04/18) Tolerates alprazolam trazodone (Verified Allergy, Intermediate, 01/04/18) zolpidem (Verified Allergy, Intermediate, 01/04/18) I S O L A T I O N *CONTACT* (Verified Allergy, Unknown, 11/11/18) mrsa ROS Cardiovascular: yes Chest Pain Gastrointestinal: Yes Abdominal Pain Physical Exam General: mild distress HEENT: Atraumatic Lungs: Clear to auscultation Heart: Regular rate Abdomen: Other (Mild tenderness in the lower abdomen) Vitals VITALS Vital Signs Date Time Temp Pulse Resp B/P (MAP) Pulse Ox O2 Delivery O2 Flow Rate FiO2 05/14/20 17:56 98 24 80/30 (47) 99 NonRebreather Mask Labs Labs Laboratory Tests Test 05/14/20 18:14 05/14/20 18:15 White Blood Count 29.1 x10^3/uL (4.0-11.0) Red Blood Count 4.29 x10^6/uL (3.50-5.40) Hemoglobin 12.4 g/dL (12.0-15.5) Hematocrit 40.5 % (36.0-47.0) Mean Corpuscular Volume 94 fL (79-100) Mean Corpuscular Hemoglobin 29 pg (25-35) Mean Corpuscular Hemoglobin Concent 31 g/dL (31-37) Red Cell Distribution Width 17.0 % (11.5-14.5) Platelet Count 322 x10^3/uL (140-400) Neutrophils (%) (Auto) 70 % (31-73) Lymphocytes (%) (Auto) 22 % (24-48) Monocytes (%) (Auto) 5 % (0-9) Eosinophils (%) (Auto) 2 % (0-3) Basophils (%) (Auto) 1 % (0-3) Neutrophils # (Auto) 20.2 x10^3/uL (1.8-7.7) Lymphocytes # (Auto) 6.5 x10^3/uL (1.0-4.8) Monocytes # (Auto) 1.5 x10^3/uL (0.0-1.1) Eosinophils # (Auto) 0.7 x10^3/uL (0.0-0.7) Basophils # (Auto) 0.2 x10^3/uL (0.0-0.2) Prothrombin Time 15.7 SEC (11.7-14.0) Prothromb Time International Ratio 1.3 (0.8-1.1) D-Dimer (Kaila) > 20.00 ug/mlFEU Sodium Level 135 mmol/L (136-145) Potassium Level 4.5 mmol/L (3.5-5.1) Chloride Level 101 mmol/L (98-107) Carbon Dioxide Level 15 mmol/L (21-32) Anion Gap 19 (6-14) Blood Urea Nitrogen 33 mg/dL (7-20) Creatinine 2.2 mg/dL (0.6-1.0) Estimated GFR (Cockcroft-Gault) 21.8 Glucose Level 402 mg/dL (70-99) Calcium Level 10.0 mg/dL (8.5-10.1) Magnesium Level 2.8 mg/dL (1.8-2.4) Total Bilirubin 0.6 mg/dL (0.2-1.0) Direct Bilirubin 0.1 mg/dL (0.0-0.2) Aspartate Amino Transf (AST/SGOT) 28 U/L (15-37) Alanine Aminotransferase (ALT/SGPT) 28 U/L (14-59) Alkaline Phosphatase 228 U/L (46-116) Troponin I Quantitative < 0.017 ng/mL (0.000-0.055) LZ-Abz-S-Type Natriuretic Peptide 368 pg/mL (0-124) Total Protein 7.8 g/dL (6.4-8.2) Albumin 3.3 g/dL (3.4-5.0) Lipase 265 U/L (73-393) O2 Saturation 91 % (92-99) Arterial Blood pH 7.15 (7.35-7.45) Arterial Blood pCO2 at Patient Temp 34 mmHg (35-46) Arterial Blood pO2 at Patient Temp 73 mmHg (65-108) Arterial Blood HCO3 12 mmol/L (21-28) Arterial Blood Base Excess -16 mmol/L (-3-3) Oxyhemoglobin 90.6 % Methemoglobin 0.1 % (0.0-1.9) Carbon Monoxide, Quantitative 0.3 % (0.0-1.9) FiO2 100 Laboratory Tests Test 05/14/20 18:14 05/14/20 18:15 White Blood Count 29.1 x10^3/uL (4.0-11.0) Red Blood Count 4.29 x10^6/uL (3.50-5.40) Hemoglobin 12.4 g/dL (12.0-15.5) Hematocrit 40.5 % (36.0-47.0) Mean Corpuscular Volume 94 fL (79-100) Mean Corpuscular Hemoglobin 29 pg (25-35) Mean Corpuscular Hemoglobin Concent 31 g/dL (31-37) Red Cell Distribution Width 17.0 % (11.5-14.5) Platelet Count 322 x10^3/uL (140-400) Neutrophils (%) (Auto) 70 % (31-73) Lymphocytes (%) (Auto) 22 % (24-48) Monocytes (%) (Auto) 5 % (0-9) Eosinophils (%) (Auto) 2 % (0-3) Basophils (%) (Auto) 1 % (0-3) Neutrophils # (Auto) 20.2 x10^3/uL (1.8-7.7) Lymphocytes # (Auto) 6.5 x10^3/uL (1.0-4.8) Monocytes # (Auto) 1.5 x10^3/uL (0.0-1.1) Eosinophils # (Auto) 0.7 x10^3/uL (0.0-0.7) Basophils # (Auto) 0.2 x10^3/uL (0.0-0.2) Prothrombin Time 15.7 SEC (11.7-14.0) Prothromb Time International Ratio 1.3 (0.8-1.1) D-Dimer (Kaila) > 20.00 ug/mlFEU Sodium Level 135 mmol/L (136-145) Potassium Level 4.5 mmol/L (3.5-5.1) Chloride Level 101 mmol/L (98-107) Carbon Dioxide Level 15 mmol/L (21-32) Anion Gap 19 (6-14) Blood Urea Nitrogen 33 mg/dL (7-20) Creatinine 2.2 mg/dL (0.6-1.0) Estimated GFR (Cockcroft-Gault) 21.8 Glucose Level 402 mg/dL (70-99) Calcium Level 10.0 mg/dL (8.5-10.1) Magnesium Level 2.8 mg/dL (1.8-2.4) Total Bilirubin 0.6 mg/dL (0.2-1.0) Direct Bilirubin 0.1 mg/dL (0.0-0.2) Aspartate Amino Transf (AST/SGOT) 28 U/L (15-37) Alanine Aminotransferase (ALT/SGPT) 28 U/L (14-59) Alkaline Phosphatase 228 U/L (46-116) Troponin I Quantitative < 0.017 ng/mL (0.000-0.055) UW-Epv-Z-Type Natriuretic Peptide 368 pg/mL (0-124) Total Protein 7.8 g/dL (6.4-8.2) Albumin 3.3 g/dL (3.4-5.0) Lipase 265 U/L (73-393) O2 Saturation 91 % (92-99) Arterial Blood pH 7.15 (7.35-7.45) Arterial Blood pCO2 at Patient Temp 34 mmHg (35-46) Arterial Blood pO2 at Patient Temp 73 mmHg (65-108) Arterial Blood HCO3 12 mmol/L (21-28) Arterial Blood Base Excess -16 mmol/L (-3-3) Oxyhemoglobin 90.6 % Methemoglobin 0.1 % (0.0-1.9) Carbon Monoxide, Quantitative 0.3 % (0.0-1.9) FiO2 100 Images Images Chest x-ray shows no acute cardiopulmonary process. Assessment/Plan Assessment/Plan 1. Chest pain. History of severe coronary artery disease. Interventions as above. Abnormal EKG but the patient's baseline EKG is also quite abnormal. Initial troponin is normal. Chest pain has now resolved. We will continue on pressor support and fluids. Previous echo shows intact LV systolic function. Will rule out myocardial infarction. The patient will not be brought emergently to the catheterization lab at this time. Discussed with the patient. 2. Abdominal pain. Severe hypotension on admission. White count 29.1. pH 7.15. Continuing pressor support. Work-up and treatment for abdominal pain and possible sepsis is underway. Rapid Covid test is pending. 3. Severe hypotension. Pressor support as above. Work-up in progress. 4. Chronic renal insufficiency. Initial creatinine of 2.2. We will continue to monitor. 4. Hyperlipidemia. Will check morning lab. Thank you for allowing us to participate in the care of your patient. BENSON MERA MD May 14, 2020 19:48
[2020-05-14] MEDS ORDERED: IOHEXOL 350 MG/ML 100 ML VIAL. IV ONE (20:00)
[2020-05-14] MEDS ORDERED: VASOPRESSIN 20 UNIT in IV DEXTROSE 5% 100ML 100 ML IV ONE (20:15)
[2020-05-14] MEDS ORDERED: CONTRAST GIVEN. MC PRN (20:15)
--- NOTE | 2020-05-14 20:21 | RAD ---
Exam: CT chest, abdomen and pelvis with contrast INDICATION: Chest pain, hypotension TECHNIQUE: Sequential axial images through the chest, abdomen and pelvis obtained following the admin istration 100 mL of Omni 350 IV contrast. Sagittal and coronal reformatted images were reconstructed from the axial data and reviewed. Comparisons: Chest x-ray 05/14/2020 FINDINGS: Visualized portions of the thyroid are unremarkable. No enlarged mediastinal lymph nodes. Heart size is normal. No pericardial effusion. Thoracic aorta has a normal course and caliber. Pulmon michael artery is not enlarged. Airways are patent. No consolidation or pneumothorax. There are strandy opacities at dependent portio n lungs likely representing atelectasis. No suspicious lung nodules. No pleural effusion or thickening. Liver, pancreas, and adrenals are unremarkable. Gallbladder surgically absent. Please identified. No perinephric inflammation or hydronephrosis. No renal or ureteral calculi are identified. Bladder is decompressed not well evaluated. Uterus is absent. No abnormal adnexal mass. Large amount stool is noted within the sigmoid colon to the rectum. There is a left upper quadrant ventral hernia containing short segment of transverse colon and small bowel loops. Additionally there is a adjacent umbilical hernia which contains several loops of small bowel. No evidence for obstruction. Remainder of the large and small bowel are unremarkable. No free intra-abdominal air or fluid. Abdominal aorta has a normal course and caliber. No enlarged intra-abdominal lymph nodes are identified. No suspicious osseous lesions or acute fractures. IMPRESSION: 1. Normal appearance of the aorta without evidence of aneurysm or dissection. 2. Large amount stool noted at the sigmoid colon. Correlate for constipation. 3. Several ventral hernias containing loops of large and small bowel. No obstruction. Exposure: One or more of the following in the visualized dose reduction techniques were utilized for this examination: 1. Automated exposure control 2. Adjustment of the MA and/or KV according to patient size 3. Use of iterative of reconstructive technique Electronically signed by: Leonides Walker MD (05/14/2020 8:19 PM) [facility]
[2020-05-14 20:29] LABS: BILIRUBIN,URINE SMALL (NEG); CLARITY,URINE CLEAR; COLOR,URINE YELLOW; NITRITE,URINE NEGATIVE (NEG); PH,URINE 5.5 (<5.0-8.0); PROTEIN,URINE 100 mg/dL (NEG-TRACE); UROBILINOGEN,URINE 0.2 mg/dL (0.2 mg/dL)
[2020-05-14 20:38] LABS: BACTERIA,URINE FEW /HPF (0-FEW); RBC,URINE OCC /HPF (0-2)
[2020-05-14 20:39] LABS: AMORPHOUS SEDIMENT,UR PRESENT /HPF; HYALINE CASTS, URINE OCCASIONAL /HPF
[2020-05-14] MEDS ORDERED: ONDANSETRON PF 4 MG/2 ML VIAL. IV PRN (22:00)
[2020-05-14] MEDS ORDERED: HEPARIN for IV BOLUS 10,000 UNIT/10 ML VIAL. IV PRN (22:15)
[2020-05-14] MEDS ORDERED: HEPARIN for IV BOLUS 10,000 UNIT/10 ML VIAL. IV ONE (22:15)
[2020-05-14] MEDS ORDERED: ACETAMINOPHEN 500 MG TABLET PO ONE (22:30)
[2020-05-14 22:45] VITALS: BP 126/62
[2020-05-14 23:00] VITALS: BP 124/38
--- NOTE | 2020-05-14 23:00 | NUR ---
Pt arrived to unit via bed to room 109 accompanied by ED RN . Tele monitor applied to pt vs obtained and stable assessment completed poc explained pt oriented to surroundings. All drips verified. Bed alarm set. call light in reach. Will continue to monitor.
[2020-05-14] MEDS: HEPARIN 25,000UTS/250ML PREMIX 250 ML IV PRN (23:10)
[2020-05-14 23:15] VITALS: BP 111/52
[2020-05-14 23:30] VITALS: BP 96/52
[2020-05-15] VITALS (30 sets, daily range): BP systolic 71–171; BP diastolic 42–81
[2020-05-15] MEDS ORDERED: IV NORMAL SALINE 1000ML BAG 1,000 ML IV ONE ×2 (01:00→08:30)
[2020-05-15] MEDS ORDERED: PIPERACILLIN/TAZOBACTAM 2.25 GM in IV NORMAL SALINE 50ML 50 ML IV ONE (01:00)
[2020-05-15] MEDS ORDERED: VANCOMYCIN 1.25 GM in IV NORMAL SALINE 250ML 250 ML IV ONE (01:00)
[2020-05-15] MEDS: VASOPRESSIN 20 UNIT in IV DEXTROSE 5% 100ML 100 ML IV PRN ×3 (01:02→21:16)
[2020-05-15] MEDS: NOREPINEPHRINE VIAL 8 MG in IV DEXTROSE 5% 250 ML IV PRN ×3 (01:05→11:02)
[2020-05-15] MEDS: fentaNYL PF VIAL 100 MCG/2 ML VIAL IVP PRN ×4 (03:05→20:00)
[2020-05-15] MEDS: ASA/APAP/CAFFEINE 250/250/65MG TABLET. PO PRN (03:11)
[2020-05-15] MEDS ORDERED: INSULIN LISPRO 300 UNITS/3 ML VIAL. SQ ONE (06:45)
[2020-05-15 06:58] LABS: CREATININE 2.5 mg/dL (0.6-1.0); GFR 18.8; POTASSIUM 4.9 mmol/L (3.5-5.1)
[2020-05-15] MEDS ORDERED: DEXTROSE 50% 25 GM / 50ML DISP.SYRIN. IV PRN (07:30)
[2020-05-15 08:04] LABS: BASO % 0 % (0-3); EOS % 0 % (0-3); HEMATOCRIT 36.8 % (36.0-47.0); HEMOGLOBIN 11.1 g/dL (12.0-15.5); LYMPH # 1.6 x10^3/uL (1.0-4.8); LYMPH % 8 % (24-48); MEAN CORPUSCULAR HEMOGLOBIN 29 pg (25-35); MEAN CORPUSCULAR HGB CONC 30 g/dL (31-37); MEAN CORPUSCULAR VOLUME 96 fL (79-100); MONO # 0.4 x10^3/uL (0.0-1.1); MONO % 2 % (0-9); NEUT % 90 % (31-73); PLATELET COUNT 334 x10^3/uL (140-400); RED BLOOD COUNT 3.82 x10^6/uL (3.50-5.40); RED CELL DISTRIBUTION WIDTH 17.2 % (11.5-14.5)
[2020-05-15] MEDS: ANTI-COAG MONITOR BY PHARMACY. MC PRN (08:20)
--- NOTE | 2020-05-15 08:21 | PDOC1 ---
History and Physical Date of Admission Date of Admission DATE: 05/15/20 TIME: 08:21 Source Source: Chart review, Patient History of Present Illness History of Present Illness MS. Alberto, is a 74 year old female admit for chest pain last night, pain started acutely while walking her dog, mid chest pain with tightness. she came by ambulance, and was newly hypoxic to mid 80's in the ER. she has a Hx CAD and stents, CV team called for EKG change, Dr. Joshua saw the pt in the ER, admit to ICU, broad spectrum abx given, CT angio done for pain, showed large amt of stool, no clear PNA hypoxia worsened a little overnight I was not informed of blood sugar or acidosis issues until this AM 0630 Past Medical History Past Medical History coronary artery disease requiring stents, hypertension, diabetes, CKD 4 Cardiovascular: CAD, HTN, Hyperlipidemia Pulmonary: Asthma, Bronchitis, COPD, Pneumonia, Other CENTRAL NERVOUS SYSTEM: Migraine, Other GI: Constipation, Diverticulosis, GERD, Other (Abdominal hernias) Heme/Onc: Anemia NOS Psych: Anxiety, Depression, Other Musculoskeletal: No pain Rheumatologic: No pertinent hx Renal/: Chronic renal insuff Endocrine: Diabetes, Osteoporosis Past Surgical History Past Surgical History: Appendectomy, Cholecystectomy, Hernia Repair, Tonsillectomy, Other (Coronary stents) Family History Family History: Coronary Artery Disease Family History: Parent Social History Smoke: No ALCOHOL: none Drugs: None Current Medications Current Medications Current Medications Iodixanol (Visipaque 320) 100 ml STK-MED ONCE .ROUTE ; Start 05/14/20 at 18:14; Stop 05/14/20 at 18:15; Status DC Lidocaine HCl (Lidocaine 1% 20ml Vial) 20 ml STK-MED ONCE .ROUTE ; Start 05/14/20 at 18:14; Stop 05/14/20 at 18:15; Status DC Heparin Sodium/ Sodium Chloride 500 ml @ As Directed STK-MED ONCE .ROUTE ; Start 05/14/20 at 18:15; Stop 05/14/20 at 18:15; Status DC Fentanyl Citrate (Fentanyl 2ml Vial) 100 mcg STK-MED ONCE .ROUTE ; Start 05/14/20 at 18:15; Stop 05/14/20 at 18:16; Status DC Midazolam HCl (Versed) 2 mg STK-MED ONCE .ROUTE ; Start 05/14/20 at 18:16; Stop 05/14/20 at 18:16; Status DC Dopamine HCl/ Dextrose 250 ml @ As Directed STK-MED ONCE IV ; Start 05/14/20 at 18:17; Stop 05/14/20 at 18:18; Status DC Sodium Chloride 1,000 ml @ 1,000 mls/hr Q1H IV Last administered on 05/14/20at 18:14; Start 05/14/20 at 18:15; Stop 05/14/20 at 19:14; Status DC Heparin Sodium/ Sodium Chloride 500 ml @ As Directed STK-MED ONCE .ROUTE ; Start 05/14/20 at 18:19; Stop 05/14/20 at 18:19; Status DC Dopamine HCl/ Dextrose 250 ml @ 13.538 mls/ hr 1X ONCE IV Last administered on 05/14/20at 18:19; Start 05/14/20 at 18:30; Stop 05/15/20 at 03:03; Status DC Aspirin (Aspirin Chewable) 162 mg 1X ONCE PO ; Start 05/14/20 at 18:30; Stop 05/14/20 at 18:31; Status DC Aspirin (Aspirin Chewable) 81 mg DAILYWBKFT PO ; Start 05/15/20 at 08:00 Norepinephrine Bitartrate 8 mg/ Dextrose 258 ml @ 13.971 mls/ hr 1X ONCE IV Last administered on 05/14/20at 18:50; Start 05/14/20 at 19:00; Stop 05/15/20 at 13:28 Sodium Bicarbonate 150 meq/Sterile Water 1,150 ml @ 125 mls/hr 1X ONCE IV Last administered on 05/14/20at 19:25; Start 05/14/20 at 19:30; Stop 05/15/20 at 04:41; Status DC Sodium Chloride 1,000 ml @ 1,000 mls/hr 1X ONCE IV Last administered on 05/14/20at 19:27; Start 05/14/20 at 19:15; Stop 05/14/20 at 20:14; Status DC Piperacillin Sod/ Tazobactam Sod 3.375 gm/Sodium Chloride 50 ml @ 100 mls/hr 1X ONCE IV ; Start 05/14/20 at 19:15; Stop 05/14/20 at 19:44; Status UNV Vancomycin HCl 1.25 gm/Sodium Chloride 250 ml @ 166.667 mls/hr 1X ONCE IV Last administered on 05/14/20at 20:24; Start 05/14/20 at 19:15; Stop 05/14/20 at 20:44; Status DC Piperacillin Sod/ Tazobactam Sod 2.25 gm/Sodium Chloride 50 ml @ 100 mls/hr 1X ONCE IV Last administered on 05/14/20at 19:58; Start 05/14/20 at 19:15; Stop 05/14/20 at 19:44; Status DC Iohexol (Omnipaque 350 Mg/ml) 100 ml 1X ONCE IV Last administered on 05/14/20at 20:03; Start 05/14/20 at 20:00; Stop 05/14/20 at 20:01; Status DC Info (CONTRAST GIVEN -- Rx MONITORING) 1 each PRN DAILY PRN MC SEE COMMENTS; Start 05/14/20 at 20:15; Stop 05/16/20 at 20:14 Vasopressin 20 unit/Dextrose 101 ml @ 11.882 mls/ hr 1X ONCE IV Last administered on 05/14/20at 20:36; Start 05/14/20 at 20:15; Stop 05/15/20 at 04:45; Status DC Ondansetron HCl (Zofran) 4 mg PRN Q8HRS PRN IV NAUSEA/VOMITING; Start 05/14/20 at 22:00; Stop 05/15/20 at 21:59 Heparin Sodium (Porcine) (Heparin Sodium) 4,000 unit 1X ONCE IV Last administered on 05/14/20at 23:09; Start 05/14/20 at 22:15; Stop 05/14/20 at 22:16; Status DC Heparin Sodium/ Dextrose 250 ml @ 0 mls/hr CONT PRN IV PER PROTOCOL Last administered on 05/14/20at 23:10; Start 05/14/20 at 22:15 Heparin Sodium (Porcine) (Heparin Sodium) 1,800 unit PRN Q6HRS PRN IV FOR UFH LEVEL LESS THAN 0.2; Start 05/14/20 at 22:15 Norepinephrine Bitartrate 8 mg/ Dextrose 258 ml @ 13.971 mls/ hr 1X ONCE IV Last administered on 05/15/20at 04:25; Start 05/14/20 at 22:15; Stop 05/15/20 at 07:03; Status DC Acetaminophen (Tylenol) 1,000 mg 1X ONCE PO Last administered on 05/14/20at 23:04; Start 05/14/20 at 22:30; Stop 05/14/20 at 22:39; Status DC Dopamine HCl/ Dextrose 250 ml @ 13.538 mls/ hr CONT PRN IV SEE I/O RECORD Last administered on 05/15/20at 03:10; Start 05/14/20 at 23:00 Vasopressin 20 unit/Dextrose 101 ml @ 12 mls/hr CONT PRN IV SEE I/O RECORD Last administered on 05/15/20at 01:02; Start 05/14/20 at 23:00 Norepinephrine Bitartrate 8 mg/ Dextrose 258 ml @ 13.971 mls/ hr CONT PRN IV PER PROTOCOL Last administered on 05/15/20at 07:19; Start 05/14/20 at 23:00 Hydrocortisone Sodium Succinate (Solu-CORTEF) 100 mg Q12HR IVP ; Start 05/15/20 at 09:00 Vancomycin HCl 1.25 gm/Sodium Chloride 250 ml @ 166.667 mls/hr 1X ONCE IV Last administered on 05/15/20at 02:34; Start 05/15/20 at 01:00; Stop 05/15/20 at 02:29; Status DC Piperacillin Sod/ Tazobactam Sod 2.25 gm/Sodium Chloride 50 ml @ 100 mls/hr 1X ONCE IV Last administered on 05/15/20at 01:02; Start 05/15/20 at 01:00; Stop 05/15/20 at 01:29; Status DC Sodium Chloride 1,000 ml @ 100 mls/hr 1X ONCE IV Last administered on 05/15/20at 01:02; Start 05/15/20 at 01:00; Stop 05/15/20 at 10:59 Acetaminophen/ Aspirin/Caffeine (Excedrin Migraine) 1 tab PRN Q6HRS PRN PO MIGRAINE HEADACHE Last administered on 05/15/20at 03:11; Start 05/15/20 at 03:00 Fentanyl Citrate (Fentanyl 2ml Vial) 50 mcg PRN Q3HRS PRN IVP PAIN Last a dministered on 05/15/20at 06:06; Start 05/15/20 at 03:00 Insulin Human Lispro (HumaLOG) 0-9 UNITS Q6HRS SQ ; Start 05/15/20 at 12:00 Dextrose (Dextrose 50%-Water Syringe) 12.5 gm PRN Q15MIN PRN IV SEE COMMENTS; Start 05/15/20 at 07:30 Insulin Human Lispro (HumaLOG) 14 units 1X ONCE SQ Last administered on 05/15/20at 06:44; Start 05/15/20 at 06:45; Stop 05/15/20 at 06:46; Status DC Info (Anti-Coagulation Monitoring By Pharmacy) 1 each PRN DAILY PRN MC SEE COMMENTS; Start 05/15/20 at 08:00 Active Scripts Active Effient (Prasugrel Hcl) 10 Mg Tablet 10 Mg PO DAILYWBKFT 30 Days Atorvastatin Calcium 40 Mg Tablet 80 Mg PO QHS Reported Furosemide 20 Mg Tablet 1 Tab PO DAILY Bupropion Xl (Bupropion Hcl) 150 Mg Tab.er.24h 150 Mg PO BID Tramadol Hcl 50 Mg Tablet 50 Mg PO Q4HRS PRN Cyclobenzaprine Hcl 5 Mg Tablet 5 Mg PO TID PRN Montelukast Sodium Tablet (Montelukast Sodium) 10 Mg Tablet 10 Mg PO HS Spironolactone 25 Mg Tablet 1 Tab PO DAILY Ranitidine Hcl 150 Mg Capsule 150 Mg PO DAILY Naproxen 500 Mg Tablet 1 Tab PO BID 30 Days Abilify (Aripiprazole) 2 Mg Tablet 2 Mg PO DAILY Tegretol (Carbamazepine) 200 Mg Tablet 200 Mg PO QHS Metoprolol Succinate ( Xl ) (Metoprolol Succinate) 25 Mg Tab.er.24h 12.5 Mg PO DAILY Klonopin (Clonazepam) 0.5 Mg Tablet 0.5 Mg PO PRN BID PRN Fish Oil 1,000 Mg Capsule (Reseda-3 Fatty Acids/Fish Oil) 1 Each Capsule 1 Each PO TID Cymbalta (Duloxetine Hcl) 60 Mg Capsule.dr 120 Mg PO DAILY Loperamide (Loperamide Hcl) 2 Mg Capsule 2 Mg PO Zyrtec (Cetirizine Hcl) 10 Mg Tablet 1 Tab PO DAILY Zonisamide 100 Mg Capsule 100 Mg PO TID Protonix (Pantoprazole Sodium) 20 Mg Tablet.dr 40 Mg PO DAILY Nortriptyline Hcl 25 Mg Capsule 50 Mg PO HS Duoneb 0.5-3(2.5) Mg/3 Ml (Albuterol/Ipratropium) 3 Ml Ampul.neb 3 Ml NEB TID Multivitamins (Multivitamin) 1 Each Tablet 1 Tab PO DAILY Mirtazapine 15 Mg Tablet 30 Mg PO QHS Lisinopril 5 Mg Tablet 1 Tab PO DAILY Vitamin B-12 (Cyanocobalamin (Vitamin B-12)) 1,000 Mcg Tablet 1 Tab PO DAILY Vitamin D (Cholecalciferol (Vitamin D3)) 1,000 Unit Capsule 1 Cap PO DAILY Ascorbic Acid 500 Mg Tablet 500 Mg PO BID Voltaren (Diclofenac Sodium) 100 Gm Gel..gram. 100 Gm TP QID Levemir Flextouch (Insulin Detemir) 100 Unit/1 Ml Insuln.pen 36 Unit SQ BID Flonase Allergy Relief (Fluticasone Propionate) 9.9 Ml [place].susp 2 Spr NS DAILY Aspir 81 (Aspirin) 81 Mg Tablet.dr 81 Mg PO DAILY Ropinirole Hcl 1 Mg Tablet 1 Mg PO QHS Novolog (Insulin Aspart) 100 Unit/1 Ml Cartridge 6 Unit SQ TIDAC Allergies Allergies: Coded Allergies: grapefruit (Verified Allergy, Intermediate, 01/04/18) hydromorphone (Verified Allergy, Intermediate, 01/04/18) metoclopramide (Verified Allergy, Intermediate, 01/04/18) morphine (Verified Allergy, Intermediate, BROKE OUT WITH RASH, 01/04/18) phenytoin (Verified Allergy, Intermediate, 01/04/18) temazepam (Verified Allergy, Intermediate, 01/04/18) Tolerates alprazolam trazodone (Verified Allergy, Intermediate, 01/04/18) zolpidem (Verified Allergy, Intermediate, 01/04/18) I S O L A T I O N *CONTACT* (Verified Allergy, Unknown, 11/11/18) mrsa ROS General: YES: Chills, Fatigue, Malaise PSYCHOLOGICAL ROS: YES: Irritablity, Sleep disturbances Eyes: No Blurry vision, No Decreased vision, No Double vision, No Dry eyes, No Excessive tearing, No Eye Pain, No Itchy Eyes, No Loss of vision, No Photophobia, No Scotomata, No Uses contacts, No Uses glasses, No Other HEENT: No: Heacaches, Visual Changes, Hearing change, Nasal congestion, Nasal discharge, Oral lesions, Sinus pain, Sore Throat, Epistaxis, Sneezing, Snoring, Tinnitus, Vertigo, Vocal changes, Other Respiratory: No: Cough, Hemoptysis, Orthopnea, Pleuritic Pain, Shortness of breath, SOB with excertion, Sputum Changes, Stridor, Tachypnea, Wheezing, Other Cardiovascular: yes Chest Pain; No Palpitations, No Orthopnea, No Paroxysmal Noc. Dyspnea, No Edema, No Lt Headedness, No Other Gastrointestinal: Yes Nausea, Yes Abdominal Pain Genitourinary: No Dysuria, No Frequency, No Incontinence, No Hematuria, No Retention, No Discharge, No Urgency, No Pain, No Flank Pain, No Other, No , No , No , No , No , No , No Musculoskeletal: No Gait Disturbance, No Joint Pain, No Joint Stiffness, No Joint Swelling, No Muscle Pain, No Muscular Weakness, No Pain In:, No Swelling In:, No Other Neurological: No Behavorial Changes, No Bowel/Bladder ControlChng, No Confusion, No Dizziness, No Gait Disturbance, No Headaches, No Impaired Coord /balance, No Memory Loss, No Numbness/Tingling, No Seizures, No Speech Problems, No Tremors, No Visual Changes, No Weakness, No Other Skin: No Dry Skin, No Eczema, No Hair Changes, No Lumps, No Mole Changes, No Mottling, No Nail Changes, No Pruritus, No Rash, No Skin Lesion Changes, No Other, No Acne Physical Exam General: Alert, Cooperative, moderate distress HEENT: PERRLA, Mucous membr. moist/pink Lungs: Clear to auscultation Heart: S1S2, no gallops, murmurs Abdomen: Soft (distended, tender, hypoactive sounds, ) Extremities: No cyanosis, No edema Skin: No rashes Neuro: Normal speech, Sensation intact Psych/Mental Status: Mental status NL, Mood NL Vitals Vitals Vital Signs Date Time Temp Pulse Resp B/P (MAP) Pulse Ox O2 Delivery O2 Flow Rate FiO2 05/15/20 07:00 117 18 115/73 (87) 94 Nasal Cannula 6.0 05/15/20 01:00 97.8 97.8 Labs Labs Laboratory Tests Test 05/14/20 18:14 05/14/20 18:15 05/14/20 19:05 05/14/20 19:20 White Blood Count 29.1 x10^3/uL (4.0-11.0) Red Blood Count 4.29 x10^6/uL (3.50-5.40) Hemoglobin 12.4 g/dL (12.0-15.5) Hematocrit 40.5 % (36.0-47.0) Mean Corpuscular Volume 94 fL (79-100) Mean Corpuscular Hemoglobin 29 pg (25-35) Mean Corpuscular Hemoglobin Concent 31 g/dL (31-37) Red Cell Distribution Width 17.0 % (11.5-14.5) Platelet Count 322 x10^3/uL (140-400) Neutrophils (%) (Auto) 70 % (31-73) Lymphocytes (%) (Auto) 22 % (24-48) Monocytes (%) (Auto) 5 % (0-9) Eosinophils (%) (Auto) 2 % (0-3) Basophils (%) (Auto) 1 % (0-3) Neutrophils # (Auto) 20.2 x10^3/uL (1.8-7.7) Lymphocytes # (Auto) 6.5 x10^3/uL (1.0-4.8) Monocytes # (Auto) 1.5 x10^3/uL (0.0-1.1) Eosinophils # (Auto) 0.7 x10^3/uL (0.0-0.7) Basophils # (Auto) 0.2 x10^3/uL (0.0-0.2) Segmented Neutrophils % 50 % (35-66) Band Neutrophils % 3 % (0-9) Lymphocytes % 33 % (24-48) Monocytes % 8 % (0-10) Eosinophils % 5 % (0-5) Metamyelocytes % 1 % (0-0) Toxic Granulation Platelet Estimate Adequate (ADEQUATE) Platelet Clumps, EDTA Present Large Platelets Present Polychromasia Present Poikilocytosis Mod Anisocytosis Slight Microcytosis Slight Helmet Cells Occ Crenated Cell Present Acanthocytes Occ RBC Morphology Bizarre Forms Prothrombin Time 15.7 SEC (11.7-14.0) Prothromb Time International Ratio 1.3 (0.8-1.1) D-Dimer (Kaila) > 20.00 ug/mlFEU Sodium Level 135 mmol/L (136-145) Potassium Level 4.5 mmol/L (3.5-5.1) Chloride Level 101 mmol/L (98-107) Carbon Dioxide Level 15 mmol/L (21-32) Anion Gap 19 (6-14) Blood Urea Nitrogen 33 mg/dL (7-20) Creatinine 2.2 mg/dL (0.6-1.0) Estimated GFR (Cockcroft-Gault) 21.8 Glucose Level 402 mg/dL (70-99) Calcium Level 10.0 mg/dL (8.5-10.1) Magnesium Level 2.8 mg/dL (1.8-2.4) Total Bilirubin 0.6 mg/dL (0.2-1.0) Direct Bilirubin 0.1 mg/dL (0.0-0.2) Aspartate Amino Transf (AST/SGOT) 28 U/L (15-37) Alanine Aminotransferase (ALT/SGPT) 28 U/L (14-59) Alkaline Phosphatase 228 U/L (46-116) Troponin I Quantitative < 0.017 ng/mL (0.000-0.055) VI-Txo-K-Type Natriuretic Peptide 368 pg/mL (0-124) Total Protein 7.8 g/dL (6.4-8.2) Albumin 3.3 g/dL (3.4-5.0) Lipase 265 U/L (73-393) O2 Saturation 91 % (92-99) Arterial Blood pH 7.15 (7.35-7.45) Arterial Blood pCO2 at Patient Temp 34 mmHg (35-46) Arterial Blood pO2 at Patient Temp 73 mmHg (65-108) Arterial Blood HCO3 12 mmol/L (21-28) Arterial Blood Base Excess -16 mmol/L (-3-3) Oxyhemoglobin 90.6 % Methemoglobin 0.1 % (0.0-1.9) Carbon Monoxide, Quantitative 0.3 % (0.0-1.9) FiO2 100 SARS-CoV-2 Antigen (Rapid) Negative (NEGATIVE) Lactic Acid Level 2.9 mmol/L (0.4-2.0) Test 05/14/20 20:20 05/14/20 21:35 05/14/20 23:15 05/15/20 00:15 Urine Collection Type U cath Urine Color Yellow Urine Clarity Clear Urine pH 5.5 (<5.0-8.0) Urine Specific [place] >=1.030 (1.000-1.030) Urine Protein 100 mg/dL (NEG-TRACE) Urine Glucose (UA) >=1000 mg/dL (NEG) Urine Ketones (Stick) Negative mg/dL (NEG) Urine Blood Negative (NEG) Urine Nitrite Negative (NEG) Urine Bilirubin Small (NEG) Urine Urobilinogen Dipstick 0.2 mg/dL (0.2 mg/dL) Urine Leukocyte Esterase Negative (NEG) Urine RBC Occ /HPF (0-2) Urine WBC 1-4 /HPF (0-4) Urine Squamous Epithelial Cells Few /LPF Urine Amorphous Sediment Present /HPF Urine Bacteria Few /HPF (0-FEW) Urine Hyaline Casts Occasional /HPF Troponin I Quantitative 0.211 ng/mL (0.000-0.055) 1.190 ng/mL (0.000-0.055) Lactic Acid Level 5.8 mmol/L (0.4-2.0) Test 05/15/20 06:35 05/15/20 07:40 Sodium Level 127 mmol/L (136-145) Potassium Level 4.9 mmol/L (3.5-5.1) Chloride Level 94 mmol/L (98-107) Carbon Dioxide Level 14 mmol/L (21-32) Anion Gap 19 (6-14) Blood Urea Nitrogen 35 mg/dL (7-20) Creatinine 2.5 mg/dL (0.6-1.0) Estimated GFR (Cockcroft-Gault) 18.8 Glucose Level 719 mg/dL (70-99) Calcium Level 8.0 mg/dL (8.5-10.1) White Blood Count 21.0 x10^3/uL (4.0-11.0) Red Blood Count 3.82 x10^6/uL (3.50-5.40) Hemoglobin 11.1 g/dL (12.0-15.5) Hematocrit 36.8 % (36.0-47.0) Mean Corpuscular Volume 96 fL (79-100) Mean Corpuscular Hemoglobin 29 pg (25-35) Mean Corpuscular Hemoglobin Concent 30 g/dL (31-37) Red Cell Distribution Width 17.2 % (11.5-14.5) Platelet Count 334 x10^3/uL (140-400) Neutrophils (%) (Auto) 90 % (31-73) Lymphocytes (%) (Auto) 8 % (24-48) Monocytes (%) (Auto) 2 % (0-9) Eosinophils (%) (Auto) 0 % (0-3) Basophils (%) (Auto) 0 % (0-3) Neutrophils # (Auto) 19.0 x10^3/uL (1.8-7.7) Lymphocytes # (Auto) 1.6 x10^3/uL (1.0-4.8) Monocytes # (Auto) 0.4 x10^3/uL (0.0-1.1) Eosinophils # (Auto) 0.0 x10^3/uL (0.0-0.7) Basophils # (Auto) 0.0 x10^3/uL (0.0-0.2) Laboratory Tests Test 05/14/20 18:14 05/14/20 18:15 05/14/20 19:05 05/14/20 19:20 White Blood Count 29.1 x10^3/uL (4.0-11.0) Red Blood Count 4.29 x10^6/uL (3.50-5.40) Hemoglobin 12.4 g/dL (12.0-15.5) Hematocrit 40.5 % (36.0-47.0) Mean Corpuscular Volume 94 fL (79-100) Mean Corpuscular Hemoglobin 29 pg (25-35) Mean Corpuscular Hemoglobin Concent 31 g/dL (31-37) Red Cell Distribution Width 17.0 % (11.5-14.5) Platelet Count 322 x10^3/uL (140-400) Neutrophils (%) (Auto) 70 % (31-73) Lymphocytes (%) (Auto) 22 % (24-48) Monocytes (%) (Auto) 5 % (0-9) Eosinophils (%) (Auto) 2 % (0-3) Basophils (%) (Auto) 1 % (0-3) Neutrophils # (Auto) 20.2 x10^3/uL (1.8-7.7) Lymphocytes # (Auto) 6.5 x10^3/uL (1.0-4.8) Monocytes # (Auto) 1.5 x10^3/uL (0.0-1.1) Eosinophils # (Auto) 0.7 x10^3/uL (0.0-0.7) Basophils # (Auto) 0.2 x10^3/uL (0.0-0.2) Segmented Neutrophils % 50 % (35-66) Band Neutrophils % 3 % (0-9) Lymphocytes % 33 % (24-48) Monocytes % 8 % (0-10) Eosinophils % 5 % (0-5) Metamyelocytes % 1 % (0-0) Toxic Granulation Platelet Estimate Adequate (ADEQUATE) Platelet Clumps, EDTA Present Large Platelets Present Polychromasia Present Poikilocytosis Mod Anisocytosis Slight Microcytosis Slight Helmet Cells Occ Crenated Cell Present Acanthocytes Occ RBC Morphology Bizarre Forms Prothrombin Time 15.7 SEC (11.7-14.0) Prothromb Time International Ratio 1.3 (0.8-1.1) D-Dimer (Kaila) > 20.00 ug/mlFEU Sodium Level 135 mmol/L (136-145) Potassium Level 4.5 mmol/L (3.5-5.1) Chloride Level 101 mmol/L (98-107) Carbon Dioxide Level 15 mmol/L (21-32) Anion Gap 19 (6-14) Blood Urea Nitrogen 33 mg/dL (7-20) Creatinine 2.2 mg/dL (0.6-1.0) Estimated GFR (Cockcroft-Gault) 21.8 Glucose Level 402 mg/dL (70-99) Calcium Level 10.0 mg/dL (8.5-10.1) Magnesium Level 2.8 mg/dL (1.8-2.4) Total Bilirubin 0.6 mg/dL (0.2-1.0) Direct Bilirubin 0.1 mg/dL (0.0-0.2) Aspartate Amino Transf (AST/SGOT) 28 U/L (15-37) Alanine Aminotransferase (ALT/SGPT) 28 U/L (14-59) Alkaline Phosphatase 228 U/L (46-116) Troponin I Quantitative < 0.017 ng/mL (0.000-0.055) NE-Lma-Z-Type Natriuretic Peptide 368 pg/mL (0-124) Total Protein 7.8 g/dL (6.4-8.2) Albumin 3.3 g/dL (3.4-5.0) Lipase 265 U/L (73-393) O2 Saturation 91 % (92-99) Arterial Blood pH 7.15 (7.35-7.45) Arterial Blood pCO2 at Patient Temp 34 mmHg (35-46) Arterial Blood pO2 at Patient Temp 73 mmHg (65-108) Arterial Blood HCO3 12 mmol/L (21-28) Arterial Blood Base Excess -16 mmol/L (-3-3) Oxyhemoglobin 90.6 % Methemoglobin 0.1 % (0.0-1.9) Carbon Monoxide, Quantitative 0.3 % (0.0-1.9) FiO2 100 SARS-CoV-2 Antigen (Rapid) Negative (NEGATIVE) Lactic Acid Level 2.9 mmol/L (0.4-2.0) Test 05/14/20 20:20 05/14/20 21:35 05/14/20 23:15 05/15/20 00:15 Urine Collection Type U cath Urine Color Yellow Urine Clarity Clear Urine pH 5.5 (<5.0-8.0) Urine Specific [place] >=1.030 (1.000-1.030) Urine Protein 100 mg/dL (NEG-TRACE) Urine Glucose (UA) >=1000 mg/dL (NEG) Urine Ketones (Stick) Negative mg/dL (NEG) Urine Blood Negative (NEG) Urine Nitrite Negative (NEG) Urine Bilirubin Small (NEG) Urine Urobilinogen Dipstick 0.2 mg/dL (0.2 mg/dL) Urine Leukocyte Esterase Negative (NEG) Urine RBC Occ /HPF (0-2) Urine WBC 1-4 /HPF (0-4) Urine Squamous Epithelial Cells Few /LPF Urine Amorphous Sediment Present /HPF Urine Bacteria Few /HPF (0-FEW) Urine Hyaline Casts Occasional /HPF Troponin I Quantitative 0.211 ng/mL (0.000-0.055) 1.190 ng/mL (0.000-0.055) Lactic Acid Level 5.8 mmol/L (0.4-2.0) Test 05/15/20 06:35 05/15/20 07:40 Sodium Level 127 mmol/L (136-145) Potassium Level 4.9 mmol/L (3.5-5.1) Chloride Level 94 mmol/L (98-107) Carbon Dioxide Level 14 mmol/L (21-32) Anion Gap 19 (6-14) Blood Urea Nitrogen 35 mg/dL (7-20) Creatinine 2.5 mg/dL (0.6-1.0) Estimated GFR (Cockcroft-Gault) 18.8 Glucose Level 719 mg/dL (70-99) Calcium Level 8.0 mg/dL (8.5-10.1) White Blood Count 21.0 x10^3/uL (4.0-11.0) Red Blood Count 3.82 x10^6/uL (3.50-5.40) Hemoglobin 11.1 g/dL (12.0-15.5) Hematocrit 36.8 % (36.0-47.0) Mean Corpuscular Volume 96 fL (79-100) Mean Corpuscular Hemoglobin 29 pg (25-35) Mean Corpuscular Hemoglobin Concent 30 g/dL (31-37) Red Cell Distribution Width 17.2 % (11.5-14.5) Platelet Count 334 x10^3/uL (140-400) Neutrophils (%) (Auto) 90 % (31-73) Lymphocytes (%) (Auto) 8 % (24-48) Monocytes (%) (Auto) 2 % (0-9) Eosinophils (%) (Auto) 0 % (0-3) Basophils (%) (Auto) 0 % (0-3) Neutrophils # (Auto) 19.0 x10^3/uL (1.8-7.7) Lymphocytes # (Auto) 1.6 x10^3/uL (1.0-4.8) Monocytes # (Auto) 0.4 x10^3/uL (0.0-1.1) Eosinophils # (Auto) 0.0 x10^3/uL (0.0-0.7) Basophils # (Auto) 0.0 x10^3/uL (0.0-0.2) VTE Prophylaxis Ordered VTE Prophylaxis Devices: Yes VTE Pharmacological Prophylaxi: Yes Assessment/Plan Assessment/Plan sepsis, severe sepsis, shock Vanc, zosyn, broad coverage, consult PULM for critical care, cover PNA COVID risk, pt initial swab is negative acute acidosis on CKD 4, renal failure, DKA, acute acidosis with hyperosmolar syndrome, start insulin gtt now troponinemia, NSTEMI 2, demand, CV consult done last night in ER Justifications for Admission Other Justification TANNER COMER MD May 15, 2020 08:21
[2020-05-15 08:26] LABS: CREATININE 2.4 mg/dL (0.6-1.0); GFR 19.7; POTASSIUM 5.5 mmol/L (3.5-5.1)
[2020-05-15 08:27] LABS: CHOLESTEROL/HDL RATIO 5.5
[2020-05-15] MEDS ORDERED: PIP/TAZO PER PHARMACY MC PRN (08:30)
[2020-05-15] MEDS: INSULIN REGULAR VIAL 100 UNIT in IV NORMAL SALINE 100ML 100 ML IV PRN ×3 (08:59→21:18)
[2020-05-15] MEDS ORDERED: HYDROCORTISONE SOD SUCC/PF 100 MG/2 ML VIAL. IVP SCH (09:00)
[2020-05-15] MEDS: VANCOMYCIN PER PHARMACY MC PRN ×2 (09:39→10:04)
--- NOTE | 2020-05-15 10:12 | NUR ---
Pharmacy Vancomycin Dosing Note S:Consulted to monitor and dose vancomycin started 05/15/20. O:ALDA CORRAL is a 74 year old F with Sepsis . Height: 4 feet, 9 inches Weight: 73.0 kg [place] Body Weight: 38.60 Adjusted Body Weight: 52.36 Dosing Weight: Actual Other Antibiotics: ZOSYN LABS: Last BUN: 35 Last Creatinine: 2.4 Creatinine Clearance: 18 mL/min Last WBC: 21 Last Procalcitonin: Tmax (past 24 hours): 97.8 Microbiology: 05/15 NOT ODERED YET I/O: 4848/1310 Drug Levels: Last level: on at Last dose given 05/15/20 at 0230 Vancomycin Dosing: Loading Dose: x1 Dosing Weight: Actual Target Trough: 15-20 A: Based on: WEIGHT, CRCL~18 P: 1. GIVE Vancomycin 1250 mg IV X 2 (ALREADY GIVEN) 2. Follow up Random level on 05/17/20 at 0600 3. Pharmacy will continue to monitor, follow and adjust therapy as needed. JUAN PABLO MCLAIN [facility], 05/15/20 1012
--- NOTE | 2020-05-15 10:23 | PDOC ---
Date and Time Called for central line, needed for pressors Patient very short of breath and relates a history of difficult neck IV placement in the past. Her neck is 3cm from clavicle to mandible I suggested PIC line due to SOB/no need for pressure monitoring. I was told nephrology will not allow PIC line. 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 Chlorasept prep. R IJ entered with ease. I spent the next 45 minutes trying to get a wire to advance beyond 10cm. 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 Eventually the wire passed leading to multiple PVCs which resolved when wire was withdrawn. 3 lumen placed, sutured at 16cm. Biopatch and sterile dressing. Caps, flushed. Free flow all ports CXR unchanged from earlier except 3 lumen at SVC RA junction. Her mediastinum is wide but unchanged from prior Xray. I informed patient that she should not have right neck IVs in the future and that a PIC line would be safer for her. Current Medications Current Medications Iodixanol (Visipaque 320) 100 ml STK-MED ONCE .ROUTE ; Start 05/14/20 at 18:14; Stop 05/14/20 at 18:15; Status DC Lidocaine HCl (Lidocaine 1% 20ml Vial) 20 ml STK-MED ONCE .ROUTE ; Start 05/14/20 at 18:14; Stop 05/14/20 at 18:15; Status DC Heparin Sodium/ Sodium Chloride 500 ml @ As Directed STK-MED ONCE .ROUTE ; Start 05/14/20 at 18:15; Stop 05/14/20 at 18:15; Status DC Fentanyl Citrate (Fentanyl 2ml Vial) 100 mcg STK-MED ONCE .ROUTE ; Start 05/14/20 at 18:15; Stop 05/14/20 at 18:16; Status DC Midazolam HCl (Versed) 2 mg STK-MED ONCE .ROUTE ; Start 05/14/20 at 18:16; Stop 05/14/20 at 18:16; Status DC Dopamine HCl/ Dextrose 250 ml @ As Directed STK-MED ONCE IV ; Start 05/14/20 at 18:17; Stop 05/14/20 at 18:18; Status DC Sodium Chloride 1,000 ml @ 1,000 mls/hr Q1H IV Last administered on 05/14/20at 18:14; Start 05/14/20 at 18:15; Stop 05/14/20 at 19:14; Status DC Heparin Sodium/ Sodium Chloride 500 ml @ As Directed STK-MED ONCE .ROUTE ; Start 05/14/20 at 18:19; Stop 05/14/20 at 18:19; Status DC Dopamine HCl/ Dextrose 250 ml @ 13.538 mls/ hr 1X ONCE IV Last administered on 05/14/20at 18:19; Start 05/14/20 at 18:30; Stop 05/15/20 at 03:03; Status DC Aspirin (Aspirin Chewable) 162 mg 1X ONCE PO ; Start 05/14/20 at 18:30; Stop 05/14/20 at 18:31; Status DC Aspirin (Aspirin Chewable) 81 mg DAILYWBKFT PO ; Start 05/15/20 at 08:00 Norepinephrine Bitartrate 8 mg/ Dextrose 258 ml @ 13.971 mls/ hr 1X ONCE IV Last administered on 05/14/20at 18:50; Start 05/14/20 at 19:00; Stop 05/15/20 at 13:28 Sodium Bicarbonate 150 meq/Sterile Water 1,150 ml @ 125 mls/hr 1X ONCE IV Last administered on 05/14/20at 19:25; Start 05/14/20 at 19:30; Stop 05/15/20 at 04:41; Status DC Sodium Chloride 1,000 ml @ 1,000 mls/hr 1X ONCE IV Last administered on 05/14/20at 19:27; Start 05/14/20 at 19:15; Stop 05/14/20 at 20:14; Status DC Piperacillin Sod/ Tazobactam Sod 3.375 gm/Sodium Chloride 50 ml @ 100 mls/hr 1X ONCE IV ; Start 05/14/20 at 19:15; Stop 05/14/20 at 19:44; Status UNV Vancomycin HCl 1.25 gm/Sodium Chloride 250 ml @ 166.667 mls/hr 1X ONCE IV Last administered on 05/14/20at 20:24; Start 05/14/20 at 19:15; Stop 05/14/20 at 20:44; Status DC Piperacillin Sod/ Tazobactam Sod 2.25 gm/Sodium Chloride 50 ml @ 100 mls/hr 1X ONCE IV Last administered on 05/14/20at 19:58; Start 05/14/20 at 19:15; Stop 05/14/20 at 19:44; Status DC Iohexol (Omnipaque 350 Mg/ml) 100 ml 1X ONCE IV Last administered on 05/14/20at 20:03; Start 05/14/20 at 20:00; Stop 05/14/20 at 20:01; Status DC Info (CONTRAST GIVEN -- Rx MONITORING) 1 each PRN DAILY PRN MC SEE COMMENTS; Start 05/14/20 at 20:15; Stop 05/16/20 at 20:14 Vasopressin 20 unit/Dextrose 101 ml @ 11.882 mls/ hr 1X ONCE IV Last administered on 05/14/20at 20:36; Start 05/14/20 at 20:15; Stop 05/15/20 at 04:45; Status DC Ondansetron HCl (Zofran) 4 mg PRN Q8HRS PRN IV NAUSEA/VOMITING; Start 05/14/20 at 22:00; Stop 05/15/20 at 21:59 Heparin Sodium (Porcine) (Heparin Sodium) 4,000 unit 1X ONCE IV Last administered on 05/14/20at 23:09; Start 05/14/20 at 22:15; Stop 05/14/20 at 22:16; Status DC Heparin Sodium/ Dextrose 250 ml @ 0 mls/hr CONT PRN IV PER PROTOCOL Last administered on 05/14/20at 23:10; Start 05/14/20 at 22:15 Heparin Sodium (Porcine) (Heparin Sodium) 1,800 unit PRN Q6HRS PRN IV FOR UFH LEVEL LESS THAN 0.2; Start 05/14/20 at 22:15 Norepinephrine Bitartrate 8 mg/ Dextrose 258 ml @ 13.971 mls/ hr 1X ONCE IV Last administered on 05/15/20at 04:25; Start 05/14/20 at 22:15; Stop 05/15/20 at 07:03; Status DC Acetaminophen (Tylenol) 1,000 mg 1X ONCE PO Last administered on 05/14/20at 23:04; Start 05/14/20 at 22:30; Stop 05/14/20 at 22:39; Status DC Dopamine HCl/ Dextrose 250 ml @ 13.538 mls/ hr CONT PRN IV SEE I/O RECORD Last administered on 05/15/20at 09:37; Start 05/14/20 at 23:00 Vasopressin 20 unit/Dextrose 101 ml @ 12 mls/hr CONT PRN IV SEE I/O RECORD Last administered on 05/15/20at 01:02; Start 05/14/20 at 23:00 Norepinephrine Bitartrate 8 mg/ Dextrose 258 ml @ 13.971 mls/ hr CONT PRN IV PER PROTOCOL Last administered on 05/15/20at 07:19; Start 05/14/20 at 23:00 Hydrocortisone Sodium Succinate (Solu-CORTEF) 100 mg Q12HR IVP ; Start 05/15/20 at 09:00 Vancomycin HCl 1.25 gm/Sodium Chloride 250 ml @ 166.667 mls/hr 1X ONCE IV Last administered on 05/15/20at 02:34; Start 05/15/20 at 01:00; Stop 05/15/20 at 02:29; Status DC Piperacillin Sod/ Tazobactam Sod 2.25 gm/Sodium Chloride 50 ml @ 100 mls/hr 1X ONCE IV Last administered on 05/15/20at 01:02; Start 05/15/20 at 01:00; Stop 05/15/20 at 01:29; Status DC Sodium Chloride 1,000 ml @ 100 mls/hr 1X ONCE IV Last administered on 05/15/20at 01:02; Start 05/15/20 at 01:00; Stop 05/15/20 at 10:59 Acetaminophen/ Aspirin/Caffeine (Excedrin Migraine) 1 tab PRN Q6HRS PRN PO MIGRAINE HEADACHE Last administered on 05/15/20at 03:11; Start 05/15/20 at 03:00 Fentanyl Citrate (Fentanyl 2ml Vial) 50 mcg PRN Q3HRS PRN IVP PAIN Last administered on 05/15/20at 06:06; Start 05/15/20 at 03:00 Insulin Human Lispro (HumaLOG) 0-9 UNITS Q6HRS SQ ; Start 05/15/20 at 12:00 Dextrose (Dextrose 50%-Water Syringe) 12.5 gm PRN Q15MIN PRN IV SEE COMMENTS; Start 05/15/20 at 07:30 Insulin Human Lispro (HumaLOG) 14 units 1X ONCE SQ Last administered on 05/15/20at 06:44; Start 05/15/20 at 06:45; Stop 05/15/20 at 06:46; Status DC Info (Anti-Coagulation Monitoring By Pharmacy) 1 each PRN DAILY PRN MC SEE COMMENTS Last administered on 05/15/20at 08:20; Start 05/15/20 at 08:00 Insulin Human Regular 100 unit/ Sodium Chloride 101 ml @ 0 mls/hr CONT PRN IV SEE I/O RECORD Last administered on 05/15/20at 08:59; Start 05/15/20 at 08:30 Vancomycin HCl (Vanco Per Pharmacy) 1 each PRN DAILY PRN MC SEE COMMENTS Last administered on 05/15/20at 10:04; Start 05/15/20 at 08:30 Piperacillin Sod/ Tazobactam Sod (Zosyn Per Pharmacy) 1 each PRN DAILY PRN MC SEE COMMENTS; Start 05/15/20 at 08:30 Polyethylene Glycol (miraLAX PACKET) 17 gm DAILY PO ; Start 05/15/20 at 09:00 Polyethylene Glycol (miraLAX PACKET) 17 gm PRN DAILY PRN PO CONSTIPATION; Start 05/15/20 at 08:30 Docusate Sodium (Colace) 100 mg DAILY PO ; Start 05/15/20 at 09:00 Sodium Chloride 1,000 ml @ 1,000 mls/hr 1X ONCE IV Last administered on 05/15/20at 08:41; Start 05/15/20 at 08:30; Stop 05/15/20 at 09:29; Status DC Sodium Bicarbonate 150 meq/Sterile Water 1,150 ml @ 125 mls/hr Q9H12M IV ; Start 05/15/20 at 09:00 Vancomycin HCl (Vancomycin Random Level) 1 each 1X ONCE MC ; Start 05/17/20 at 06:00; Stop 05/17/20 at 06:01 Piperacillin Sod/ Tazobactam Sod 2.25 gm/Sodium Chloride 50 ml @ 100 mls/hr Q6HRS IV ; Start 05/15/20 at 11:00; Stop 05/15/20 at 09:43; Status DC Piperacillin Sod/ Tazobactam Sod 2.25 gm/Sodium Chloride 50 ml @ 100 mls/hr Q8HRS IV ; Start 05/15/20 at 11:00 Active Scripts Active Effient (Prasugrel Hcl) 10 Mg Tablet 10 Mg PO DAILYWBKFT 30 Days Atorvastatin Calcium 40 Mg Tablet 80 Mg PO QHS Reported Furosemide 20 Mg Tablet 1 Tab PO DAILY Bupropion Xl (Bupropion Hcl) 150 Mg Tab.er.24h 150 Mg PO BID Tramadol Hcl 50 Mg Tablet 50 Mg PO Q4HRS PRN Cyclobenzaprine Hcl 5 Mg Tablet 5 Mg PO TID PRN Montelukast Sodium Tablet (Montelukast Sodium) 10 Mg Tablet 10 Mg PO HS Spironolactone 25 Mg Tablet 1 Tab PO DAILY Ranitidine Hcl 150 Mg Capsule 150 Mg PO DAILY Naproxen 500 Mg Tablet 1 Tab PO BID 30 Days Abilify (Aripiprazole) 2 Mg Tablet 2 Mg PO DAILY Tegretol (Carbamazepine) 200 Mg Tablet 200 Mg PO QHS Metoprolol Succinate ( Xl ) (Metoprolol Succinate) 25 Mg Tab.er.24h 12.5 Mg PO D AILY Klonopin (Clonazepam) 0.5 Mg Tablet 0.5 Mg PO PRN BID PRN Fish Oil 1,000 Mg Capsule ([place]-3 Fatty Acids/Fish Oil) 1 Each Capsule 1 Each PO TID Cymbalta (Duloxetine Hcl) 60 Mg Capsule.dr 120 Mg PO DAILY Loperamide (Loperamide Hcl) 2 Mg Capsule 2 Mg PO Zyrtec (Cetirizine Hcl) 10 Mg Tablet 1 Tab PO DAILY Zonisamide 100 Mg Capsule 100 Mg PO TID Protonix (Pantoprazole Sodium) 20 Mg Tablet.dr 40 Mg PO DAILY Nortriptyline Hcl 25 Mg Capsule 50 Mg PO HS Duoneb 0.5-3(2.5) Mg/3 Ml (Albuterol/Ipratropium) 3 Ml Ampul.neb 3 Ml NEB TID Multivitamins (Multivitamin) 1 Each Tablet 1 Tab PO DAILY Mirtazapine 15 Mg Tablet 30 Mg PO QHS Lisinopril 5 Mg Tablet 1 Tab PO DAILY Vitamin B-12 (Cyanocobalamin (Vitamin B-12)) 1,000 Mcg Tablet 1 Tab PO DAILY Vitamin D (Cholecalciferol (Vitamin D3)) 1,000 Unit Capsule 1 Cap PO DAILY Ascorbic Acid 500 Mg Tablet 500 Mg PO BID Voltaren (Diclofenac Sodium) 100 Gm Gel..gram. 100 Gm TP QID Levemir Flextouch (Insulin Detemir) 100 Unit/1 Ml Insuln.pen 36 Unit SQ BID Flonase Allergy Relief (Fluticasone Propionate) 9.9 Ml Strawberry.susp 2 Spr NS DAILY Aspir 81 (Aspirin) 81 Mg Tablet.dr 81 Mg PO DAILY Ropinirole Hcl 1 Mg Tablet 1 Mg PO QHS Novolog (Insulin Aspart) 100 Unit/1 Ml Cartridge 6 Unit SQ TIDAC Pertinent Labs/Test Laboratory Tests Test 05/14/20 18:14 05/14/20 18:15 05/14/20 19:05 05/14/20 19:20 White Blood Count 29.1 x10^3/uL (4.0-11.0) Red Blood Count 4.29 x10^6/uL (3.50-5.40) Hemoglobin 12.4 g/dL (12.0-15.5) Hematocrit 40.5 % (36.0-47.0) Mean Corpuscular Volume 94 fL (79-100) Mean Corpuscular Hemoglobin 29 pg (25-35) Mean Corpuscular Hemoglobin Concent 31 g/dL (31-37) Red Cell Distribution Width 17.0 % (11.5-14.5) Platelet Count 322 x10^3/uL (140-400) Neutrophils (%) (Auto) 70 % (31-73) Lymphocytes (%) (Auto) 22 % (24-48) Monocytes (%) (Auto) 5 % (0-9) Eosinophils (%) (Auto) 2 % (0-3) Basophils (%) (Auto) 1 % (0-3) Neutrophils # (Auto) 20.2 x10^3/uL (1.8-7.7) Lymphocytes # (Auto) 6.5 x10^3/uL (1.0-4.8) Monocytes # (Auto) 1.5 x10^3/uL (0.0-1.1) Eosinophils # (Auto) 0.7 x10^3/uL (0.0-0.7) Basophils # (Auto) 0.2 x10^3/uL (0.0-0.2) Segmented Neutrophils % 50 % (35-66) Band Neutrophils % 3 % (0-9) Lymphocytes % 33 % (24-48) Monocytes % 8 % (0-10) Eosinophils % 5 % (0-5) Metamyelocytes % 1 % (0-0) Toxic Granulation Platelet Estimate Adequate (ADEQUATE) Platelet Clumps, EDTA Present Large Platelets Present Polychromasia Present Poikilocytosis Mod Anisocytosis Slight Microcytosis Slight Helmet Cells Occ Crenated Cell Present Acanthocytes Occ RBC Morphology Bizarre Forms Prothrombin Time 15.7 SEC (11.7-14.0) Prothromb Time International Ratio 1.3 (0.8-1.1) D-Dimer (Kaila) > 20.00 ug/mlFEU Sodium Level 135 mmol/L (136-145) Potassium Level 4.5 mmol/L (3.5-5.1) Chloride Level 101 mmol/L (98-107) Carbon Dioxide Level 15 mmol/L (21-32) Anion Gap 19 (6-14) Blood Urea Nitrogen 33 mg/dL (7-20) Creatinine 2.2 mg/dL (0.6-1.0) Estimated GFR (Cockcroft-Gault) 21.8 Glucose Level 402 mg/dL (70-99) Calcium Level 10.0 mg/dL (8.5-10.1) Magnesium Level 2.8 mg/dL (1.8-2.4) Total Bilirubin 0.6 mg/dL (0.2-1.0) Direct Bilirubin 0.1 mg/dL (0.0-0.2) Aspartate Amino Transf (AST/SGOT) 28 U/L (15-37) Alanine Aminotransferase (ALT/SGPT) 28 U/L (14-59) Alkaline Phosphatase 228 U/L (46-116) Troponin I Quantitative < 0.017 ng/mL (0.000-0.055) TM-Kgq-F-Type Natriuretic Peptide 368 pg/mL (0-124) Total Protein 7.8 g/dL (6.4-8.2) Albumin 3.3 g/dL (3.4-5.0) Lipase 265 U/L (73-393) O2 Saturation 91 % (92-99) Arterial Blood pH 7.15 (7.35-7.45) Arterial Blood pCO2 at Patient Temp 34 mmHg (35-46) Arterial Blood pO2 at Patient Temp 73 mmHg (65-108) Arterial Blood HCO3 12 mmol/L (21-28) Arterial Blood Base Excess -16 mmol/L (-3-3) Oxyhemoglobin 90.6 % Methemoglobin 0.1 % (0.0-1.9) Carbon Monoxide, Quantitative 0.3 % (0.0-1.9) FiO2 100 SARS-CoV-2 Antigen (Rapid) Negative (NEGATIVE) Lactic Acid Level 2.9 mmol/L (0.4-2.0) Test 05/14/20 20:20 05/14/20 21:35 05/14/20 23:15 05/15/20 00:15 Urine Collection Type U cath Urine Color Yellow Urine Clarity Clear Urine pH 5.5 (<5.0-8.0) Urine Specific [place] >=1.030 (1.000-1.030) Urine Protein 100 mg/dL (NEG-TRACE) Urine Glucose (UA) >=1000 mg/dL (NEG) Urine Ketones (Stick) Negative mg/dL (NEG) Urine Blood Negative (NEG) Urine Nitrite Negative (NEG) Urine Bilirubin Small (NEG) Urine Urobilinogen Dipstick 0.2 mg/dL (0.2 mg/dL) Urine Leukocyte Esterase Negative (NEG) Urine RBC Occ /HPF (0-2) Urine WBC 1-4 /HPF (0-4) Urine Squamous Epithelial Cells Few /LPF Urine Amorphous Sediment Present /HPF Urine Bacteria Few /HPF (0-FEW) Urine Hyaline Casts Occasional /HPF Troponin I Quantitative 0.211 ng/mL (0.000-0.055) 1.190 ng/mL (0.000-0.055) Lactic Acid Level 5.8 mmol/L (0.4-2.0) Test 05/15/20 06:35 05/15/20 07:40 Sodium Level 127 mmol/L (136-145) 127 mmol/L (136-145) Potassium Level 4.9 mmol/L (3.5-5.1) 5.5 mmol/L (3.5-5.1) Chloride Level 94 mmol/L (98-107) 93 mmol/L (98-107) Carbon Dioxide Level 14 mmol/L (21-32) 15 mmol/L (21-32) Anion Gap 19 (6-14) 19 (6-14) Blood Urea Nitrogen 35 mg/dL (7-20) 35 mg/dL (7-20) Creatinine 2.5 mg/dL (0.6-1.0) 2.4 mg/dL (0.6-1.0) Estimated GFR (Cockcroft-Gault) 18.8 19.7 Glucose Level 719 mg/dL (70-99) 691 mg/dL (70-99) Calcium Level 8.0 mg/dL (8.5-10.1) 8.0 mg/dL (8.5-10.1) White Blood Count 21.0 x10^3/uL (4.0-11.0) Red Blood Count 3.82 x10^6/uL (3.50-5.40) Hemoglobin 11.1 g/dL (12.0-15.5) Hematocrit 36.8 % (36.0-47.0) Mean Corpuscular Volume 96 fL (79-100) Mean Corpuscular Hemoglobin 29 pg (25-35) Mean Corpuscular Hemoglobin Concent 30 g/dL (31-37) Red Cell Distribution Width 17.2 % (11.5-14.5) Platelet Count 334 x10^3/uL (140-400) Neutrophils (%) (Auto) 90 % (31-73) Lymphocytes (%) (Auto) 8 % (24-48) Monocytes (%) (Auto) 2 % (0-9) Eosinophils (%) (Auto) 0 % (0-3) Basophils (%) (Auto) 0 % (0-3) Neutrophils # (Auto) 19.0 x10^3/uL (1.8-7.7) Lymphocytes # (Auto) 1.6 x10^3/uL (1.0-4.8) Monocytes # (Auto) 0.4 x10^3/uL (0.0-1.1) Eosinophils # (Auto) 0.0 x10^3/uL (0.0-0.7) Basophils # (Auto) 0.0 x10^3/uL (0.0-0.2) Troponin I Quantitative 45.060 ng/mL (0.000-0.055) Triglycerides Level 233 mg/dL (0-150) Cholesterol Level 88 mg/dL (0-200) LDL Cholesterol, Calculated 25 mg/dL (0-100) VLDL Cholesterol, Calculated 47 mg/dL (0-40) Non-HDL Cholesterol Calculated 72 mg/dL (0-129) HDL Cholesterol 16 mg/dL (40-60) Cholesterol/HDL Ratio 5.5 Laboratory Tests Test 05/14/20 18:14 05/14/20 18:15 05/14/20 19:05 05/14/20 19:20 White Blood Count 29.1 x10^3/uL (4.0-11.0) Red Blood Count 4.29 x10^6/uL (3.50-5.40) Hemoglobin 12.4 g/dL (12.0-15.5) Hematocrit 40.5 % (36.0-47.0) Mean Corpuscular Volume 94 fL (79-100) Mean Corpuscular Hemoglobin 29 pg (25-35) Mean Corpuscular Hemoglobin Concent 31 g/dL (31-37) Red Cell Distribution Width 17.0 % (11.5-14.5) Platelet Count 322 x10^3/uL (140-400) Neutrophils (%) (Auto) 70 % (31-73) Lymphocytes (%) (Auto) 22 % (24-48) Monocytes (%) (Auto) 5 % (0-9) Eosinophils (%) (Auto) 2 % (0-3) Basophils (%) (Auto) 1 % (0-3) Neutrophils # (Auto) 20.2 x10^3/uL (1.8-7.7) Lymphocytes # (Auto) 6.5 x10^3/uL (1.0-4.8) Monocytes # (Auto) 1.5 x10^3/uL (0.0-1.1) Eosinophils # (Auto) 0.7 x10^3/uL (0.0-0.7) Basophils # (Auto) 0.2 x10^3/uL (0.0-0.2) Segmented Neutrophils % 50 % (35-66) Band Neutrophils % 3 % (0-9) Lymphocytes % 33 % (24-48) Monocytes % 8 % (0-10) Eosinophils % 5 % (0-5) Metamyelocytes % 1 % (0-0) Toxic Granulation Platelet Estimate Adequate (ADEQUATE) Platelet Clumps, EDTA Present Large Platelets Present Polychromasia Present Poikilocytosis Mod Anisocytosis Slight Microcytosis Slight Helmet Cells Occ Crenated Cell Present Acanthocytes Occ RBC Morphology Bizarre Forms Prothrombin Time 15.7 SEC (11.7-14.0) Prothromb Time International Ratio 1.3 (0.8-1.1) D-Dimer (Kaila) > 20.00 ug/mlFEU Sodium Level 135 mmol/L (136-145) Potassium Level 4.5 mmol/L (3.5-5.1) Chloride Level 101 mmol/L (98-107) Carbon Dioxide Level 15 mmol/L (21-32) Anion Gap 19 (6-14) Blood Urea Nitrogen 33 mg/dL (7-20) Creatinine 2.2 mg/dL (0.6-1.0) Estimated GFR (Cockcroft-Gault) 21.8 Glucose Level 402 mg/dL (70-99) Calcium Level 10.0 mg/dL (8.5-10.1) Magnesium Level 2.8 mg/dL (1.8-2.4) Total Bilirubin 0.6 mg/dL (0.2-1.0) Direct Bilirubin 0.1 mg/dL (0.0-0.2) Aspartate Amino Transf (AST/SGOT) 28 U/L (15-37) Alanine Aminotransferase (ALT/SGPT) 28 U/L (14-59) Alkaline Phosphatase 228 U/L (46-116) Troponin I Quantitative < 0.017 ng/mL (0.000-0.055) VK-[id number]-Type Natriuretic Peptide 368 pg/mL (0-124) Total Protein 7.8 g/dL (6.4-8.2) Albumin 3.3 g/dL (3.4-5.0) Lipase 265 U/L (73-393) O2 Saturation 91 % (92-99) Arterial Blood pH 7.15 (7.35-7.45) Arterial Blood pCO2 at Patient Temp 34 mmHg (35-46) Arterial Blood pO2 at Patient Temp 73 mmHg (65-108) Arterial Blood HCO3 12 mmol/L (21-28) Arterial Blood Base Excess -16 mmol/L (-3-3) Oxyhemoglobin 90.6 % Methemoglobin 0.1 % (0.0-1.9) Carbon Monoxide, Quantitative 0.3 % (0.0-1.9) FiO2 100 SARS-CoV-2 Antigen (Rapid) Negative (NEGATIVE) Lactic Acid Level 2.9 mmol/L (0.4-2.0) Test 05/14/20 20:20 05/14/20 21:35 05/14/20 23:15 05/15/20 00:15 Urine Collection Type U cath Urine Color Yellow Urine Clarity Clear Urine pH 5.5 (<5.0-8.0) Urine Specific [place] >=1.030 (1.000-1.030) Urine Protein 100 mg/dL (NEG-TRACE) Urine Glucose (UA) >=1000 mg/dL (NEG) Urine Ketones (Stick) Negative mg/dL (NEG) Urine Blood Negative (NEG) Urine Nitrite Negative (NEG) Urine Bilirubin Small (NEG) Urine Urobilinogen Dipstick 0.2 mg/dL (0.2 mg/dL) Urine Leukocyte Esterase Negative (NEG) Urine RBC Occ /HPF (0-2) Urine WBC 1-4 /HPF (0-4) Urine Squamous Epithelial Cells Few /LPF Urine Amorphous Sediment Present /HPF Urine Bacteria Few /HPF (0-FEW) Urine Hyaline Casts Occasional /HPF Troponin I Quantitative 0.211 ng/mL (0.000-0.055) 1.190 ng/mL (0.000-0.055) Lactic Acid Level 5.8 mmol/L (0.4-2.0) Test 05/15/20 06:35 05/15/20 07:40 Sodium Level 127 mmol/L (136-145) 127 mmol/L (136-145) Potassium Level 4.9 mmol/L (3.5-5.1) 5.5 mmol/L (3.5-5.1) Chloride Level 94 mmol/L (98-107) 93 mmol/L (98-107) Carbon Dioxide Level 14 mmol/L (21-32) 15 mmol/L (21-32) Anion Gap 19 (6-14) 19 (6-14) Blood Urea Nitrogen 35 mg/dL (7-20) 35 mg/dL (7-20) Creatinine 2.5 mg/dL (0.6-1.0) 2.4 mg/dL (0.6-1.0) Estimated GFR (Cockcroft-Gault) 18.8 19.7 Glucose Level 719 mg/dL (70-99) 691 mg/dL (70-99) Calcium Level 8.0 mg/dL (8.5-10.1) 8.0 mg/dL (8.5-10.1) White Blood Count 21.0 x10^3/uL (4.0-11.0) Red Blood Count 3.82 x10^6/uL (3.50-5.40) Hemoglobin 11.1 g/dL (12.0-15.5) Hematocrit 36.8 % (36.0-47.0) Mean Corpuscular Volume 96 fL (79-100) Mean Corpuscular Hemoglobin 29 pg (25-35) Mean Corpuscular Hemoglobin Concent 30 g/dL (31-37) Red Cell Distribution Width 17.2 % (11.5-14.5) Platelet Count 334 x10^3/uL (140-400) Neutrophils (%) (Auto) 90 % (31-73) Lymphocytes (%) (Auto) 8 % (24-48) Monocytes (%) (Auto) 2 % (0-9) Eosinophils (%) (Auto) 0 % (0-3) Basophils (%) (Auto) 0 % (0-3) Neutrophils # (Auto) 19.0 x10^3/uL (1.8-7.7) Lymphocytes # (Auto) 1.6 x10^3/uL (1.0-4.8) Monocytes # (Auto) 0.4 x10^3/uL (0.0-1.1) Eosinophils # (Auto) 0.0 x10^3/uL (0.0-0.7) Basophils # (Auto) 0.0 x10^3/uL (0.0-0.2) Troponin I Quantitative 45.060 ng/mL (0.000-0.055) Triglycerides Level 233 mg/dL (0-150) Cholesterol Level 88 mg/dL (0-200) LDL Cholesterol, Calculated 25 mg/dL (0-100) VLDL Cholesterol, Calculated 47 mg/dL (0-40) Non-HDL Cholesterol Calculated 72 mg/dL (0-129) HDL Cholesterol 16 mg/dL (40-60) Cholesterol/HDL Ratio 5.5 LAST VITALS Vital Signs Date Time Temp Pulse Resp B/P (MAP) Pulse Ox O2 Delivery O2 Flow Rate FiO2 05/15/20 08:00 Nasal Cannula 6.0 05/15/20 07:00 117 18 115/73 (87) 94 05/15/20 01:00 97.8 97.8 KATHLEEN KEITH MD May 15, 2020 10:23
--- NOTE | 2020-05-15 10:27 | RAD ---
XR CHEST 1V History: Reason: picc placement / Spl. Instructions: / History: Comparison: May 14, 2020. 6:01 PM. Findings: Interval placement right IJ central line with tip projecting over the cavoatrial junction. No pneumot horax. Patchy bibasilar opacities. No pleural effusion. Unchanged heart size. Gaseous distention of t he stomach. Impression: 1. Interval placement right IJ central line. 2. Gaseous distention of the stomach. Electronically signed by: Victor M Sawyer DO (05/15/2020 10:24 AM) [id number]
[2020-05-15] MEDS: PIPERACILLIN/TAZOBACTAM 2.25 GM in IV NORMAL SALINE 50ML 50 ML IV SCH ×2 (10:29→21:56)
[2020-05-15] MEDS: SODIUM BICARBONATE VIAL 150 MEQ in IV STERILE WATER 1,000 ML IV SCH ×2 (10:31→18:10)
[2020-05-15] MEDS ORDERED: PIPERACILLIN/TAZOBACTAM 2.25 GM in IV NORMAL SALINE 50ML 50 ML IV SCH (11:00)
[2020-05-15] MEDS: ASPIRIN CHEWABLE 81 MG TABLET. PO SCH (11:31)
[2020-05-15] MEDS: DOCUSATE SODIUM 100 MG CAPSULE. PO SCH (11:31)
[2020-05-15] MEDS: POLYETHYLENE GLYCOL 3350 17 GM PACKET. PO SCH (11:32)
[2020-05-15] MEDS: INSULIN LISPRO 300 UNITS/3 ML VIAL. SQ SCH ×2 (12:00→17:58)
[2020-05-15] MEDS: IPRATRPIUM/ALBUTEROL 0.5/2.5MG 3 ML NEBU. NEB SCH ×3 (12:35→20:00)
[2020-05-15 12:47] LABS: CALCIUM 7.6 mg/dL (8.5-10.1); CREATININE 2.3 mg/dL (0.6-1.0); GFR 20.7; POTASSIUM 3.8 mmol/L (3.5-5.1)
--- NOTE | 2020-05-15 13:05 | PDOC2 ---
CONSULT Date of Consult Date of Consult DATE: 05/15/20 TIME: 13:04 Reason for Consult Reason for Consult: Acidosis, CKD stage IV Referring Physician Referring Physician: Gianni Identification/Chief Complaint Chief Complaint Chest pain Source Source: Chart review, Patient History of Present Illness Reason for Visit: Patient is a 74-year-old female followed by Dr. Shields for her chronic kidney disease needs. She has seen Dr. Shields in February 2019 and was told that her kidneys were doing good and that she did not need to see him. In June 2019 her creatinine was down to 1.0 in our system. Outpatient labs are not accessible over the weekend at this time. She apparently was walking her dog and developed new onset sternal chest pain and hence EMS was called. She was noted to be hypoxemic with sats in the 80s and nasal cannula oxygen was placed. She remains somewhat short of breath. She is noted to have positive troponins and has been evaluated by cardiology. She does not have concrete EKG changes as reported to me and hence was not taken to the [facility] per se. Creatinine has gone up to anywhere from 2.2-2.5 in the last 24 hours. Urine output is good so far out while she is on an insulin drip and IV fluids. Sugars were 402 at presentation and went up as high as 719 this morning. She denies any recent NSAID use per se however home list of medications sure if that she was on naproxen. She is also noted to be on Aldac tone, Lasix and lisinopril. Home list of medications were reviewed as documented below. She denies difficulty urinating Past Medical History Cardiovascular: CAD, HTN, Hyperlipidemia Pulmonary: Asthma, Bronchitis, COPD, Pneumonia, Other CENTRAL NERVOUS SYSTEM: Migraine, Other GI: Constipation, Diverticulosis, GERD, Other (Abdominal hernias) Heme/Onc: Anemia NOS Psych: Anxiety, Depression, Other Musculoskeletal: No pain Rheumatologic: No pertinent hx Renal/: Chronic renal insuff Endocrine: Diabetes, Osteoporosis Past Surgical History Past Surgical History: Appendectomy, Cholecystectomy, Hernia Repair, Tonsillectomy, Other (Coronary stents) Family History Family History: Coronary Artery Disease Social History Social History: Parent No ALCOHOL: none Drugs: None Lives: with Family Current Medications Current Medications Current Medications Iodixanol (Visipaque 320) 100 ml GamePressK-MED ONCE .ROUTE ; Start 05/14/20 at 18:14; Stop 05/14/20 at 18:15; Status DC Lidocaine HCl (Lidocaine 1% 20ml Vial) 20 ml STK-MED ONCE .ROUTE ; Start 05/14/20 at 18:14; Stop 05/14/20 at 18:15; Status DC Heparin Sodium/ Sodium Chloride 500 ml @ As Directed STK-MED ONCE .ROUTE ; Start 05/14/20 at 18:15; Stop 05/14/20 at 18:15; Status DC Fentanyl Citrate (Fentanyl 2ml Vial) 100 mcg STK-MED ONCE .ROUTE ; Start 05/14/20 at 18:15; Stop 05/14/20 at 18:16; Status DC Midazolam HCl (Versed) 2 mg STK-MED ONCE .ROUTE ; Start 05/14/20 at 18:16; Stop 05/14/20 at 18:16; Status DC Dopamine HCl/ Dextrose 250 ml @ As Directed STK-MED ONCE IV ; Start 05/14/20 at 18:17; Stop 05/14/20 at 18:18; Status DC Sodium Chloride 1,000 ml @ 1,000 mls/hr Q1H IV Last administered on 05/14/20at 18:14; Start 05/14/20 at 18:15; Stop 05/14/20 at 19:14; Status DC Heparin Sodium/ Sodium Chloride 500 ml @ As Directed STK-MED ONCE .ROUTE ; Start 05/14/20 at 18:19; Stop 05/14/20 at 18:19; Status DC Dopamine HCl/ Dextrose 250 ml @ 13.538 mls/ hr 1X ONCE IV Last administered on 05/14/20at 18:19; Start 05/14/20 at 18:30; Stop 05/15/20 at 03:03; Status DC Aspirin (Aspirin Chewable) 162 mg 1X ONCE PO ; Start 05/14/20 at 18:30; Stop 05/14/20 at 18:31; Status DC Aspirin (Aspirin Chewable) 81 mg DAILYWBKFT PO Last administered on 05/15/20at 11:31; Start 05/15/20 at 08:00 Norepinephrine Bitartrate 8 mg/ Dextrose 258 ml @ 13.971 mls/ hr 1X ONCE IV Last administered on 05/14/20at 18:50; Start 05/14/20 at 19:00; Stop 05/15/20 at 13:28 Sodium Bicarbonate 150 meq/Sterile Water 1,150 ml @ 125 mls/hr 1X ONCE IV Last administered on 05/14/20at 19:25; Start 05/14/20 at 19:30; Stop 05/15/20 at 04:41; Status DC Sodium Chloride 1,000 ml @ 1,000 mls/hr 1X ONCE IV Last administered on 05/14/20at 19:27; Start 05/14/20 at 19:15; Stop 05/14/20 at 20:14; Status DC Piperacillin Sod/ Tazobactam Sod 3.375 gm/Sodium Chloride 50 ml @ 100 mls/hr 1X ONCE IV ; Start 05/14/20 at 19:15; Stop 05/14/20 at 19:44; Status UNV Vancomycin HCl 1.25 gm/Sodium Chloride 250 ml @ 166.667 mls/hr 1X ONCE IV Last administered on 05/14/20at 20:24; Start 05/14/20 at 19:15; Stop 05/14/20 at 20:44; Status DC Piperacillin Sod/ Tazobactam Sod 2.25 gm/Sodium Chloride 50 ml @ 100 mls/hr 1X ONCE IV Last administered on 05/14/20at 19:58; Start 05/14/20 at 19:15; Stop 05/14/20 at 19:44; Status DC Iohexol (Omnipaque 350 Mg/ml) 100 ml 1X ONCE IV Last administered on 05/14/20at 20:03; Start 05/14/20 at 20:00; Stop 05/14/20 at 20:01; Status DC Info (CONTRAST GIVEN -- Rx MONITORING) 1 each PRN DAILY PRN MC SEE COMMENTS; Start 05/14/20 at 20:15; Stop 05/16/20 at 20:14 Vasopressin 20 unit/Dextrose 101 ml @ 11.882 mls/ hr 1X ONCE IV Last administered on 05/14/20at 20:36; Start 05/14/20 at 20:15; Stop 05/15/20 at 04:45; Status DC Ondansetron HCl (Zofran) 4 mg PRN Q8HRS PRN IV NAUSEA/VOMITING; Start 05/14/20 at 22:00; Stop 05/15/20 at 21:59 Heparin Sodium (Porcine) (Heparin Sodium) 4,000 unit 1X ONCE IV Last administered on 05/14/20at 23:09; Start 05/14/20 at 22:15; Stop 05/14/20 at 22:16; Status DC Heparin Sodium/ Dextrose 250 ml @ 0 mls/hr CONT PRN IV PER PROTOCOL Last administered on 05/14/20at 23:10; Start 05/14/20 at 22:15 Heparin Sodium (Porcine) (Heparin Sodium) 1,800 unit PRN Q6HRS PRN IV FOR UFH LEVEL LESS THAN 0.2; Start 05/14/20 at 22:15 Norepinephrine Bitartrate 8 mg/ Dextrose 258 ml @ 13.971 mls/ hr 1X ONCE IV Last administered on 05/15/20at 04:25; Start 05/14/20 at 22:15; Stop 05/15/20 at 07:03; Status DC Acetaminophen (Tylenol) 1,000 mg 1X ONCE PO Last administered on 05/14/20at 23:04; Start 05/14/20 at 22:30; Stop 05/14/20 at 22:39; Status DC Dopamine HCl/ Dextrose 250 ml @ 13.538 mls/ hr CONT PRN IV SEE I/O RECORD Last administered on 05/15/20at 09:37; Start 05/14/20 at 23:00 Vasopressin 20 unit/Dextrose 101 ml @ 12 mls/hr CONT PRN IV SEE I/O RECORD Last administered on 05/15/20at 11:04; Start 05/14/20 at 23:00 Norepinephrine Bitartrate 8 mg/ Dextrose 258 ml @ 13.971 mls/ hr CONT PRN IV PER PROTOCOL Last administered on 05/15/20at 11:02; Start 05/14/20 at 23:00 Hydrocortisone Sodium Succinate (Solu-CORTEF) 100 mg Q12HR IVP Last administered on 05/15/20at 11:33; Start 05/15/20 at 09:00 Vancomycin HCl 1.25 gm/Sodium Chloride 250 ml @ 166.667 mls/hr 1X ONCE IV Last administered on 05/15/20at 02:34; Start 05/15/20 at 01:00; Stop 05/15/20 at 02:29; Status DC Piperacillin Sod/ Tazobactam Sod 2.25 gm/Sodium Chloride 50 ml @ 100 mls/hr 1X ONCE IV Last administered on 05/15/20at 01:02; Start 05/15/20 at 01:00; Stop 05/15/20 at 01:29; Status DC Sodium Chloride 1,000 ml @ 100 mls/hr 1X ONCE IV Last administered on 05/15/20at 01:02; Start 05/15/20 at 01:00; Stop 05/15/20 at 10:59; Status DC Acetaminophen/ Aspirin/Caffeine (Excedrin Migraine) 1 tab PRN Q6HRS PRN PO MIGRAINE HEADACHE Last administered on 05/15/20at 03:11; Start 05/15/20 at 03:00 Fentanyl Citrate (Fentanyl 2ml Vial) 50 mcg PRN Q3HRS PRN IVP PAIN Last administered on 05/15/20at 11:43; Start 05/15/20 at 03:00 Insulin Human Lispro (HumaLOG) 0-9 UNITS Q6HRS SQ ; Start 05/15/20 at 12:00 Dextrose (Dextrose 50%-Water Syringe) 12.5 gm PRN Q15MIN PRN IV SEE COMMENTS; Start 05/15/20 at 07:30 Insulin Human Lispro (HumaLOG) 14 units 1X ONCE SQ Last administered on 05/15/20at 06:44; Start 05/15/20 at 06:45; Stop 05/15/20 at 06:46; Status DC Info (Anti-Coagulation Monitoring By Pharmacy) 1 each PRN DAILY PRN MC SEE COMMENTS Last administered on 05/15/20at 08:20; Start 05/15/20 at 08:00 Insulin Human Regular 100 unit/ Sodium Chloride 101 ml @ 0 mls/hr CONT PRN IV SEE I/O RECORD Last administered on 05/15/20at 08:59; Start 05/15/20 at 08:30 Vancomycin HCl (Vanco Per Pharmacy) 1 each PRN DAILY PRN MC SEE COMMENTS Last administered on 05/15/20at 10:04; Start 05/15/20 at 08:30 Piperacillin Sod/ Tazobactam Sod (Zosyn Per Pharmacy) 1 each PRN DAILY PRN MC SEE COMMENTS; Start 05/15/20 at 08:30 Polyethylene Glycol (miraLAX PACKET) 17 gm DAILY PO Last administered on 05/15/20at 11:32; Start 05/15/20 at 09:00 Polyethylene Glycol (miraLAX PACKET) 17 gm PRN DAILY PRN PO CONSTIPATION; Start 05/15/20 at 08:30 Docusate Sodium (Colace) 100 mg DAILY PO Last administered on 05/15/20at 11:31; Start 05/15/20 at 09:00 Sodium Chloride 1,000 ml @ 1,000 mls/hr 1X ONCE IV Last administered on 05/15/20at 08:41; Start 05/15/20 at 08:30; Stop 05/15/20 at 09:29; Status DC Sodium Bicarbonate 150 meq/Sterile Water 1,150 ml @ 125 mls/hr Q9H12M IV Last administered on 05/15/20at 10:31; Start 05/15/20 at 09:00 Vancomycin HCl (Vancomycin Random Level) 1 each 1X ONCE MC ; Start 05/17/20 at 06:00; Stop 05/17/20 at 06:01 Piperacillin Sod/ Tazobactam Sod 2.25 gm/Sodium Chloride 50 ml @ 100 mls/hr Q6HRS IV ; Start 05/15/20 at 11:00; Stop 05/15/20 at 09:43; Status DC Piperacillin Sod/ Tazobactam Sod 2.25 gm/Sodium Chloride 50 ml @ 100 mls/hr Q8HRS IV Last administered on 05/15/20at 10:29; Start 05/15/20 at 11:00 Albuterol/ Ipratropium (Duoneb) 3 ml RTQID NEB Last administered on 05/15/20at 12:35; Start 05/15/20 at 12:00 Active Scripts Active Effient (Prasugrel Hcl) 10 Mg Tablet 10 Mg PO DAILYWBKFT 30 Days Atorvastatin Calcium 40 Mg Tablet 80 Mg PO QHS Reported Furosemide 20 Mg Tablet 1 Tab PO DAILY Bupropion Xl (Bupropion Hcl) 150 Mg Tab.er.24h 150 Mg PO BID Tramadol Hcl 50 Mg Tablet 50 Mg PO Q4HRS PRN Cyclobenzaprine Hcl 5 Mg Tablet 5 Mg PO TID PRN Montelukast Sodium Tablet (Montelukast Sodium) 10 Mg Tablet 10 Mg PO HS Spironolactone 25 Mg Tablet 1 Tab PO DAILY Ranitidine Hcl 150 Mg Capsule 150 Mg PO DAILY Naproxen 500 Mg Tablet 1 Tab PO BID 30 Days Abilify (Aripiprazole) 2 Mg Tablet 2 Mg PO DAILY Tegretol (Carbamazepine) 200 Mg Tablet 200 Mg PO QHS Metoprolol Succinate ( Xl ) (Metoprolol Succinate) 25 Mg Tab.er.24h 12.5 Mg PO DAILY Klonopin (Clonazepam) 0.5 Mg Tablet 0.5 Mg PO PRN BID PRN Fish Oil 1,000 Mg Capsule ([place]-3 Fatty Acids/Fish Oil) 1 Each Capsule 1 Each PO TID Cymbalta (Duloxetine Hcl) 60 Mg Capsule.dr 120 Mg PO DAILY Loperamide (Loperamide Hcl) 2 Mg Capsule 2 Mg PO Zyrtec (Cetirizine Hcl) 10 Mg Tablet 1 Tab PO DAILY Zonisamide 100 Mg Capsule 100 Mg PO TID Protonix (Pantoprazole Sodium) 20 Mg Tablet.dr 40 Mg PO DAILY Nortriptyline Hcl 25 Mg Capsule 50 Mg PO HS Duoneb 0.5-3(2.5) Mg/3 Ml (Albuterol/Ipratropium) 3 Ml Ampul.neb 3 Ml NEB TID Multivitamins (Multivitamin) 1 Each Tablet 1 Tab PO DAILY Mirtazapine 15 Mg Tablet 30 Mg PO QHS Lisinopril 5 Mg Tablet 1 Tab PO DAILY Vitamin B-12 (Cyanocobalamin (Vitamin B-12)) 1,000 Mcg Tablet 1 Tab PO DAILY Vitamin D (Cholecalciferol (Vitamin D3)) 1,000 Unit Capsule 1 Cap PO DAILY Ascorbic Acid 500 Mg Tablet 500 Mg PO BID Voltaren (Diclofenac Sodium) 100 Gm Gel..gram. 100 Gm TP QID Levemir Flextouch (Insulin Detemir) 100 Unit/1 Ml Insuln.pen 36 Unit SQ BID Flonase Allergy Relief (Fluticasone Propionate) 9.9 Ml [place].susp 2 Spr NS DAILY Aspir 81 (Aspirin) 81 Mg Tablet.dr 81 Mg PO DAILY Ropinirole Hcl 1 Mg Tablet 1 Mg PO QHS Novolog (Insulin Aspart) 100 Unit/1 Ml Cartridge 6 Unit SQ TIDAC Allergies Allergies: Coded Allergies: grapefruit (Verified Allergy, Intermediate, 01/04/18) hydromorphone (Verified Allergy, Intermediate, 01/04/18) metoclopramide (Verified Allergy, Intermediate, 01/04/18) morphine (Verified Allergy, Intermediate, BROKE OUT WITH RASH, 01/04/18) phenytoin (Verified Allergy, Intermediate, 01/04/18) temazepam (Verified Allergy, Intermediate, 01/04/18) Tolerates alprazolam trazodone (Verified Allergy, Intermediate, 01/04/18) zolpidem (Verified Allergy, Intermediate, 01/04/18) I S O L A T I O N *CONTACT* (Verified Allergy, Unknown, 11/11/18) mrsa ROS Review of System 14 point review of systems reviewed with the patient is grossly negative other than as outlined under HPI Physical Exam Physical Exam General Appearance: Awake Alert Oriented x 3 In min resp/ CP related Distress Eyes: VIsion Unchanged Conjunctiva Normal EN: No EN Drainage Mucous Memb. moist Neck: no JVD no JVP Supple no Thyromegaly, short and thick CVS: S1 S2 possible soft murmur No Gallop No Rub no pretibial edema Resp: Rare basal Rales no rhonchi no current Acc. Muscle use GI: BAS +ve NO Bruit Non Tender Non Distended, anterior abdominal wall hernia : no CVA tenderness; no Suprapubic Tenderness SKIN: no visible petechial rashes Breast Exam deferred Mu.Sk: Adequate ROM no muscle Atrophy Heme: Unable to palpate Obvious LAD no palpable splenomegaly NEURO: Good Strength and Tone Cranial Nerves II - XII grossly intact Psych: Not depressed no active hallucination Vital Signs Vital Signs Date Time Temp Pulse Resp B/P (MAP) Pulse Ox O2 Delivery O2 Flow Rate FiO2 05/15/20 12:42 92 Nasal Cannula 4.0 05/15/20 12:30 109 100/51 (67) 05/15/20 12:00 100.1 32 100.1 Assessment & Plan ARF: This is etiology unclear at this time. Creatinine was elevated at admission even prior to IV contrast administration for CTA. Possibly associated with NSAID use in the setting of diuretic as well as JOSE RAMON inhibitor use. Current FLuid and E-lyte status does not necessitate emergent need for Dialysis. Will re-evaluate for Dialysis in am. Continue IV fluids as you are currently doing. Unclear if cardiac output has dropped significantly has a resolved off acute PR. Elevated sugars and dehydration may be contributing also. Creatinine is trending downwards gradually anion gap metabolic acidosis: Unable to order serum ketones at this facility. Lactate was elevated and will be rechecked. Possible poorly controlled diabetes associated volume depletion cannot be ruled out. Patient noted to have significant glycosuria Hyponatremia is probably pseudohyponatremia in the setting of hyperglycemia Non-STEMI: Defer to cardiology Marginal anemia: Watch trend Constipation: Defer to primary team Unclear if chest pain is attributable to gastric distention. Possible history of underlying chronic kidney disease cannot be ruled out Subjective shortness of breath: Defer to cardiology. Consider pulmonary consultation Discussed Plan of Care and prognosis etc. at length with family. Labs Labs Laboratory Tests Test 05/14/20 18:14 05/14/20 18:15 05/14/20 19:05 05/14/20 19:20 White Blood Count 29.1 x10^3/uL (4.0-11.0) Red Blood Count 4.29 x10^6/uL (3.50-5.40) Hemoglobin 12.4 g/dL (12.0-15.5) Hematocrit 40.5 % (36.0-47.0) Mean Corpuscular Volume 94 fL (79-100) Mean Corpuscular Hemoglobin 29 pg (25-35) Mean Corpuscular Hemoglobin Concent 31 g/dL (31-37) Red Cell Distribution Width 17.0 % (11.5-14.5) Platelet Count 322 x10^3/uL (140-400) Neutrophils (%) (Auto) 70 % (31-73) Lymphocytes (%) (Auto) 22 % (24-48) Monocytes (%) (Auto) 5 % (0-9) Eosinophils (%) (Auto) 2 % (0-3) Basophils (%) (Auto) 1 % (0-3) Neutrophils # (Auto) 20.2 x10^3/uL (1.8-7.7) Lymphocytes # (Auto) 6.5 x10^3/uL (1.0-4.8) Monocytes # (Auto) 1.5 x10^3/uL (0.0-1.1) Eosinophils # (Auto) 0.7 x10^3/uL (0.0-0.7) Basophils # (Auto) 0.2 x10^3/uL (0.0-0.2) Segmented Neutrophils % 50 % (35-66) Band Neutrophils % 3 % (0-9) Lymphocytes % 33 % (24-48) Monocytes % 8 % (0-10) Eosinophils % 5 % (0-5) Metamyelocytes % 1 % (0-0) Toxic Granulation Platelet Estimate Adequate (ADEQUATE) Platelet Clumps, EDTA Present Large Platelets Present Polychromasia Present Poikilocytosis Mod Anisocytosis Slight Microcytosis Slight Helmet Cells Occ Crenated Cell Present Acanthocytes Occ RBC Morphology Bizarre Forms Prothrombin Time 15.7 SEC (11.7-14.0) Prothromb Time International Ratio 1.3 (0.8-1.1) D-Dimer (Kaila) > 20.00 ug/mlFEU Sodium Level 135 mmol/L (136-145) Potassium Level 4.5 mmol/L (3.5-5.1) Chloride Level 101 mmol/L (98-107) Carbon Dioxide Level 15 mmol/L (21-32) Anion Gap 19 (6-14) Blood Urea Nitrogen 33 mg/dL (7-20) Creatinine 2.2 mg/dL (0.6-1.0) Estimated GFR (Cockcroft-Gault) 21.8 Glucose Level 402 mg/dL (70-99) Calcium Level 10.0 mg/dL (8.5-10.1) Magnesium Level 2.8 mg/dL (1.8-2.4) Total Bilirubin 0.6 mg/dL (0.2-1.0) Direct Bilirubin 0.1 mg/dL (0.0-0.2) Aspartate Amino Transf (AST/SGOT) 28 U/L (15-37) Alanine Aminotransferase (ALT/SGPT) 28 U/L (14-59) Alkaline Phosphatase 228 U/L (46-116) Troponin I Quantitative < 0.017 ng/mL (0.000-0.055) XJ-Kio-C-Type Natriuretic Peptide 368 pg/mL (0-124) Total Protein 7.8 g/dL (6.4-8.2) Albumin 3.3 g/dL (3.4-5.0) Lipase 265 U/L (73-393) O2 Saturation 91 % (92-99) Arterial Blood pH 7.15 (7.35-7.45) Arterial Blood pCO2 at Patient Temp 34 mmHg (35-46) Arterial Blood pO2 at Patient Temp 73 mmHg (65-108) Arterial Blood HCO3 12 mmol/L (21-28) Arterial Blood Base Excess -16 mmol/L (-3-3) Oxyhemoglobin 90.6 % Methemoglobin 0.1 % (0.0-1.9) Carbon Monoxide, Quantitative 0.3 % (0.0-1.9) FiO2 100 SARS-CoV-2 Antigen (Rapid) Negative (NEGATIVE) Lactic Acid Level 2.9 mmol/L (0.4-2.0) Test 05/14/20 20:20 05/14/20 21:35 05/14/20 23:15 05/15/20 00:15 Urine Collection Type U cath Urine Color Yellow Urine Clarity Clear Urine pH 5.5 (<5.0-8.0) Urine Specific [place] >=1.030 (1.000-1.030) Urine Protein 100 mg/dL (NEG-TRACE) Urine Glucose (UA) >=1000 mg/dL (NEG) Urine Ketones (Stick) Negative mg/dL (NEG) Urine Blood Negative (NEG) Urine Nitrite Negative (NEG) Urine Bilirubin Small (NEG) Urine Urobilinogen Dipstick 0.2 mg/dL (0.2 mg/dL) Urine Leukocyte Esterase Negative (NEG) Urine RBC Occ /HPF (0-2) Urine WBC 1-4 /HPF (0-4) Urine Squamous Epithelial Cells Few /LPF Urine Amorphous Sediment Present /HPF Urine Bacteria Few /HPF (0-FEW) Urine Hyaline Casts Occasional /HPF Troponin I Quantitative 0.211 ng/mL (0.000-0.055) 1.190 ng/mL (0.000-0.055) Lactic Acid Level 5.8 mmol/L (0.4-2.0) Test 05/15/20 06:35 05/15/20 07:40 05/15/20 10:10 05/15/20 12:09 Sodium Level 127 mmol/L (136-145) 127 mmol/L (136-145) 127 mmol/L (136-145) Potassium Level 4.9 mmol/L (3.5-5.1) 5.5 mmol/L (3.5-5.1) 3.8 mmol/L (3.5-5.1) Chloride Level 94 mmol/L (98-107) 93 mmol/L (98-107) 95 mmol/L (98-107) Carbon Dioxide Level 14 mmol/L (21-32) 15 mmol/L (21-32) 17 mmol/L (21-32) Anion Gap 19 (6-14) 19 (6-14) 15 (6-14) Blood Urea Nitrogen 35 mg/dL (7-20) 35 mg/dL (7-20) 35 mg/dL (7-20) Creatinine 2.5 mg/dL (0.6-1.0) 2.4 mg/dL (0.6-1.0) 2.3 mg/dL (0.6-1.0) Estimated GFR (Cockcroft-Gault) 18.8 19.7 20.7 Glucose Level 719 mg/dL (70-99) 691 mg/dL (70-99) 461 mg/dL (70-99) Calcium Level 8.0 mg/dL (8.5-10.1) 8.0 mg/dL (8.5-10.1) 7.6 mg/dL (8.5-10.1) White Blood Count 21.0 x10^3/uL (4.0-11.0) Red Blood Count 3.82 x10^6/uL (3.50-5.40) Hemoglobin 11.1 g/dL (12.0-15.5) Hematocrit 36.8 % (36.0-47.0) Mean Corpuscular Volume 96 fL (79-100) Mean Corpuscular Hemoglobin 29 pg (25-35) Mean Corpuscular Hemoglobin Concent 30 g/dL (31-37) Red Cell Distribution Width 17.2 % (11.5-14.5) Platelet Count 334 x10^3/uL (140-400) Neutrophils (%) (Auto) 90 % (31-73) Lymphocytes (%) (Auto) 8 % (24-48) Monocytes (%) (Auto) 2 % (0-9) Eosinophils (%) (Auto) 0 % (0-3) Basophils (%) (Auto) 0 % (0-3) Neutrophils # (Auto) 19.0 x10^3/uL (1.8-7.7) Lymphocytes # (Auto) 1.6 x10^3/uL (1.0-4.8) Monocytes # (Auto) 0.4 x10^3/uL (0.0-1.1) Eosinophils # (Auto) 0.0 x10^3/uL (0.0-0.7) Basophils # (Auto) 0.0 x10^3/uL (0.0-0.2) Heparin Anti-Xa Act, Unfractionated 0.41 IU/mL (0.30-0.70) Troponin I Quantitative 45.060 ng/mL (0.000-0.055) 33.869 ng/mL (0.000-0.055) Triglycerides Level 233 mg/dL (0-150) Cholesterol Level 88 mg/dL (0-200) LDL Cholesterol, Calculated 25 mg/dL (0-100) VLDL Cholesterol, Calculated 47 mg/dL (0-40) Non-HDL Cholesterol Calculated 72 mg/dL (0-129) HDL Cholesterol 16 mg/dL (40-60) Cholesterol/HDL Ratio 5.5 Laboratory Tests Test 05/14/20 18:14 05/14/20 18:15 05/14/20 19:05 05/14/20 19:20 White Blood Count 29.1 x10^3/uL (4.0-11.0) Red Blood Count 4.29 x10^6/uL (3.50-5.40) Hemoglobin 12.4 g/dL (12.0-15.5) Hematocrit 40.5 % (36.0-47.0) Mean Corpuscular Volume 94 fL (79-100) Mean Corpuscular Hemoglobin 29 pg (25-35) Mean Corpuscular Hemoglobin Concent 31 g/dL (31-37) Red Cell Distribution Width 17.0 % (11.5-14.5) Platelet Count 322 x10^3/uL (140-400) Neutrophils (%) (Auto) 70 % (31-73) Lymphocytes (%) (Auto) 22 % (24-48) Monocytes (%) (Auto) 5 % (0-9) Eosinophils (%) (Auto) 2 % (0-3) Basophils (%) (Auto) 1 % (0-3) Neutrophils # (Auto) 20.2 x10^3/uL (1.8-7.7) Lymphocytes # (Auto) 6.5 x10^3/uL (1.0-4.8) Monocytes # (Auto) 1.5 x10^3/uL (0.0-1.1) Eosinophils # (Auto) 0.7 x10^3/uL (0.0-0.7) Basophils # (Auto) 0.2 x10^3/uL (0.0-0.2) Segmented Neutrophils % 50 % (35-66) Band Neutrophils % 3 % (0-9) Lymphocytes % 33 % (24-48) Monocytes % 8 % (0-10) Eosinophils % 5 % (0-5) Metamyelocytes % 1 % (0-0) Toxic Granulation Platelet Estimate Adequate (ADEQUATE) Platelet Clumps, EDTA Present Large Platelets Present Polychromasia Present Poikilocytosis Mod Anisocytosis Slight Microcytosis Slight Helmet Cells Occ Crenated Cell Present Acanthocytes Occ RBC Morphology Bizarre Forms Prothrombin Time 15.7 SEC (11.7-14.0) Prothromb Time International Ratio 1.3 (0.8-1.1) D-Dimer (Kaila) > 20.00 ug/mlFEU Sodium Level 135 mmol/L (136-145) Potassium Level 4.5 mmol/L (3.5-5.1) Chloride Level 101 mmol/L (98-107) Carbon Dioxide Level 15 mmol/L (21-32) Anion Gap 19 (6-14) Blood Urea Nitrogen 33 mg/dL (7-20) Creatinine 2.2 mg/dL (0.6-1.0) Estimated GFR (Cockcroft-Gault) 21.8 Glucose Level 402 mg/dL (70-99) Calcium Level 10.0 mg/dL (8.5-10.1) Magnesium Level 2.8 mg/dL (1.8-2.4) Total Bilirubin 0.6 mg/dL (0.2-1.0) Direct Bilirubin 0.1 mg/dL (0.0-0.2) Aspartate Amino Transf (AST/SGOT) 28 U/L (15-37) Alanine Aminotransferase (ALT/SGPT) 28 U/L (14-59) Alkaline Phosphatase 228 U/L (46-116) Troponin I Quantitative < 0.017 ng/mL (0.000-0.055) FC-Yyh-Y-Type Natriuretic Peptide 368 pg/mL (0-124) Total Protein 7.8 g/dL (6.4-8.2) Albumin 3.3 g/dL (3.4-5.0) Lipase 265 U/L (73-393) O2 Saturation 91 % (92-99) Arterial Blood pH 7.15 (7.35-7.45) Arterial Blood pCO2 at Patient Temp 34 mmHg (35-46) Arterial Blood pO2 at Patient Temp 73 mmHg (65-108) Arterial Blood HCO3 12 mmol/L (21-28) Arterial Blood Base Excess -16 mmol/L (-3-3) Oxyhemoglobin 90.6 % Methemoglobin 0.1 % (0.0-1.9) Carbon Monoxide, Quantitative 0.3 % (0.0-1.9) FiO2 100 SARS-CoV-2 Antigen (Rapid) Negative (NEGATIVE) Lactic Acid Level 2.9 mmol/L (0.4-2.0) Test 05/14/20 20:20 05/14/20 21:35 05/14/20 23:15 05/15/20 00:15 Urine Collection Type U cath Urine Color Yellow Urine Clarity Clear Urine pH 5.5 (<5.0-8.0) Urine Specific [place] >=1.030 (1.000-1.030) Urine Protein 100 mg/dL (NEG-TRACE) Urine Glucose (UA) >=1000 mg/dL (NEG) Urine Ketones (Stick) Negative mg/dL (NEG) Urine Blood Negative (NEG) Urine Nitrite Negative (NEG) Urine Bilirubin Small (NEG) Urine Urobilinogen Dipstick 0.2 mg/dL (0.2 mg/dL) Urine Leukocyte Esterase Negative (NEG) Urine RBC Occ /HPF (0-2) Urine WBC 1-4 /HPF (0-4) Urine Squamous Epithelial Cells Few /LPF Urine Amorphous Sediment Present /HPF Urine Bacteria Few /HPF (0-FEW) Urine Hyaline Casts Occasional /HPF Troponin I Quantitative 0.211 ng/mL (0.000-0.055) 1.190 ng/mL (0.000-0.055) Lactic Acid Level 5.8 mmol/L (0.4-2.0) Test 05/15/20 06:35 05/15/20 07:40 05/15/20 10:10 05/15/20 12:09 Sodium Level 127 mmol/L (136-145) 127 mmol/L (136-145) 127 mmol/L (136-145) Potassium Level 4.9 mmol/L (3.5-5.1) 5.5 mmol/L (3.5-5.1) 3.8 mmol/L (3.5-5.1) Chloride Level 94 mmol/L (98-107) 93 mmol/L (98-107) 95 mmol/L (98-107) Carbon Dioxide Level 14 mmol/L (21-32) 15 mmol/L (21-32) 17 mmol/L (21-32) Anion Gap 19 (6-14) 19 (6-14) 15 (6-14) Blood Urea Nitrogen 35 mg/dL (7-20) 35 mg/dL (7-20) 35 mg/dL (7-20) Creatinine 2.5 mg/dL (0.6-1.0) 2.4 mg/dL (0.6-1.0) 2.3 mg/dL (0.6-1.0) Estimated GFR (Cockcroft-Gault) 18.8 19.7 20.7 Glucose Level 719 mg/dL (70-99) 691 mg/dL (70-99) 461 mg/dL (70-99) Calcium Level 8.0 mg/dL (8.5-10.1) 8.0 mg/dL (8.5-10.1) 7.6 mg/dL (8.5-10.1) White Blood Count 21.0 x10^3/uL (4.0-11.0) Red Blood Count 3.82 x10^6/uL (3.50-5.40) Hemoglobin 11.1 g/dL (12.0-15.5) Hematocrit 36.8 % (36.0-47.0) Mean Corpuscular Volume 96 fL (79-100) Mean Corpuscular Hemoglobin 29 pg (25-35) Mean Corpuscular Hemoglobin Concent 30 g/dL (31-37) Red Cell Distribution Width 17.2 % (11.5-14.5) Platelet Count 334 x10^3/uL (140-400) Neutrophils (%) (Auto) 90 % (31-73) Lymphocytes (%) (Auto) 8 % (24-48) Monocytes (%) (Auto) 2 % (0-9) Eosinophils (%) (Auto) 0 % (0-3) Basophils (%) (Auto) 0 % (0-3) Neutrophils # (Auto) 19.0 x10^3/uL (1.8-7.7) Lymphocytes # (Auto) 1.6 x10^3/uL (1.0-4.8) Monocytes # (Auto) 0.4 x10^3/uL (0.0-1.1) Eosinophils # (Auto) 0.0 x10^3/uL (0.0-0.7) Basophils # (Auto) 0.0 x10^3/uL (0.0-0.2) Heparin Anti-Xa Act, Unfractionated 0.41 IU/mL (0.30-0.70) Troponin I Quantitative 45.060 ng/mL (0.000-0.055) 33.869 ng/mL (0.000-0.055) Triglycerides Level 233 mg/dL (0-150) Cholesterol Level 88 mg/dL (0-200) LDL Cholesterol, Calculated 25 mg/dL (0-100) VLDL Cholesterol, Calculated 47 mg/dL (0-40) Non-HDL Cholesterol Calculated 72 mg/dL (0-129) HDL Cholesterol 16 mg/dL (40-60) Cholesterol/HDL Ratio 5.5 Review All relevant outside records, renal labs, imaging studies, telemetry/EKG's were reviewed. Images Images CT scan of the abdomen with IV contrast: No perinephric inflammation or hydronephrosis. No renal or ureteral calculi are identified. Bladder is decompressed not well evaluated. Uterus is absent. No abnormal adnexal mass. Large amount stool is noted within the sigmoid colon to the rectum. There is a left upper quadrant ventral hernia containing short segment of transverse colon and small bowel loops. Additionally there is a adjacent umbilical hernia which contains several loops of small bowel. No evidence for obstruction. Remainder of the large and small bowel are unremarkable. No free intra-abdominal air or fluid. Abdominal aorta has a normal course and caliber. No enlarged intra-abdominal lymph nodes are identified. No suspicious osseous lesions or acute fractures. IMPRESSION: 1. Normal appearance of the aorta without evidence of aneurysm or dissection. 2. Large amount stool noted at the sigmoid colon. Correlate for constipation. 3. Several ventral hernias containing loops of large and small bowel. No obstruction. Chest x-ray done after line placement this morning Impression: 1. Interval placement right IJ central line. 2. Gaseous distention of the stomach. BENI MIRELES MD May 15, 2020 13:05
[2020-05-15] MEDS ORDERED: MAGNESIUM SULFATE 2GM 50 ML IV PRN (13:30)
[2020-05-15] MEDS: POLYETHYLENE GLYCOL 3350 17 GM PACKET. PO PRN (13:43)
[2020-05-15] MEDS: NOREPINEPHRINE VIAL 32 MG in IV DEXTROSE 5% 250 ML IV PRN (14:26)
[2020-05-15] MEDS ORDERED: BUDESONIDE 0.5 MG/2 ML NEBU. NEB ONE (14:30)
--- NOTE | 2020-05-15 14:51 | PDOC ---
PROGRESS NOTES Date of Service DATE: 05/15/20 TIME: 14:44 Subjective Subjective Patient seen and examined She denies chest pain this morning. Her abdominal pain has improved. She is having increased shortness of breath. Objective Objective Vital Signs Date Time Temp Pulse Resp B/P (MAP) Pulse Ox O2 Delivery O2 Flow Rate FiO2 05/15/20 14:15 101/67 (78) 05/15/20 14:00 110 33 93 Nasal Cannula 2.0 05/15/20 12:00 100.1 100.1 Intake and Output 05/15/20 07:00 Intake Total 4748.96 ml Output Total 1610 ml Balance 3138.96 ml IV Total 4748.96 ml Output Urine Total 1610 ml Physical Exam Abdomen: Normal bowel sounds Heart: Regular rate General: mild distress Lungs: Other (Mildly decreased breath sounds) Assessment Assessment 1. Chest pain. History of severe coronary artery disease. Interventions as above. Abnormal EKG but the patient's baseline EKG is also quite abnormal. The patient reports no chest pain overnight. Previous echo show intact LV function. 7 hours post admission the patient's troponin had elevated to 1.19. However this morning her troponin elevated to 45 but has now declined to 33. The patient remains chest pain-free. At this time we will continue medical treatmen t. We will repeat her echo. This was discussed with the patient. 2. Abdominal pain. Patient's abdominal pain has improved. Her white count has fallen from 29-21. CT scan results as above. Continue on present treatment. 3. Severe hypotension. Improved today but still requiring pressors. We will continue present treatment. 4. Chronic renal insufficiency. Initial creatinine of 2.2. Seen by the renal service. We will continue to monitor. 5. Hyperlipidemia. LDL of 25 on lab today. 6. Increasing shortness of breath. We will attempt to diuresis while monitoring renal function. Pulmonary consult has been requested. Comment Review of Relevant I have reviewed the following items danisha (where applicable) has been applied. Labs Laboratory Tests Test 05/14/20 18:14 05/14/20 18:15 05/14/20 19:05 05/14/20 19:20 White Blood Count 29.1 x10^3/uL (4.0-11.0) Red Blood Count 4.29 x10^6/uL (3.50-5.40) Hemoglobin 12.4 g/dL (12.0-15.5) Hematocrit 40.5 % (36.0-47.0) Mean Corpuscular Volume 94 fL (79-100) Mean Corpuscular Hemoglobin 29 pg (25-35) Mean Corpuscular Hemoglobin Concent 31 g/dL (31-37) Red Cell Distribution Width 17.0 % (11.5-14.5) Platelet Count 322 x10^3/uL (140-400) Neutrophils (%) (Auto) 70 % (31-73) Lymphocytes (%) (Auto) 22 % (24-48) Monocytes (%) (Auto) 5 % (0-9) Eosinophils (%) (Auto) 2 % (0-3) Basophils (%) (Auto) 1 % (0-3) Neutrophils # (Auto) 20.2 x10^3/uL (1.8-7.7) Lymphocytes # (Auto) 6.5 x10^3/uL (1.0-4.8) Monocytes # (Auto) 1.5 x10^3/uL (0.0-1.1) Eosinophils # (Auto) 0.7 x10^3/uL (0.0-0.7) Basophils # (Auto) 0.2 x10^3/uL (0.0-0.2) Segmented Neutrophils % 50 % (35-66) Band Neutrophils % 3 % (0-9) Lymphocytes % 33 % (24-48) Monocytes % 8 % (0-10) Eosinophils % 5 % (0-5) Metamyelocytes % 1 % (0-0) Toxic Granulation Platelet Estimate Adequate (ADEQUATE) Platelet Clumps, EDTA Present Large Platelets Present Polychromasia Present Poikilocytosis Mod Anisocytosis Slight Microcytosis Slight Helmet Cells Occ Crenated Cell Present Acanthocytes Occ RBC Morphology Bizarre Forms Prothrombin Time 15.7 SEC (11.7-14.0) Prothromb Time International Ratio 1.3 (0.8-1.1) D-Dimer (Kaila) > 20.00 ug/mlFEU Sodium Level 135 mmol/L (136-145) Potassium Level 4.5 mmol/L (3.5-5.1) Chloride Level 101 mmol/L (98-107) Carbon Dioxide Level 15 mmol/L (21-32) Anion Gap 19 (6-14) Blood Urea Nitrogen 33 mg/dL (7-20) Creatinine 2.2 mg/dL (0.6-1.0) Estimated GFR (Cockcroft-Gault) 21.8 Glucose Level 402 mg/dL (70-99) Calcium Level 10.0 mg/dL (8.5-10.1) Magnesium Level 2.8 mg/dL (1.8-2.4) Total Bilirubin 0.6 mg/dL (0.2-1.0) Direct Bilirubin 0.1 mg/dL (0.0-0.2) Aspartate Amino Transf (AST/SGOT) 28 U/L (15-37) Alanine Aminotransferase (ALT/SGPT) 28 U/L (14-59) Alkaline Phosphatase 228 U/L (46-116) Troponin I Quantitative < 0.017 ng/mL (0.000-0.055) NF-Ixx-W-Type Natriuretic Peptide 368 pg/mL (0-124) Total Protein 7.8 g/dL (6.4-8.2) Albumin 3.3 g/dL (3.4-5.0) Lipase 265 U/L (73-393) O2 Saturation 91 % (92-99) Arterial Blood pH 7.15 (7.35-7.45) Arterial Blood pCO2 at Patient Temp 34 mmHg (35-46) Arterial Blood pO2 at Patient Temp 73 mmHg (65-108) Arterial Blood HCO3 12 mmol/L (21-28) Arterial Blood Base Excess -16 mmol/L (-3-3) Oxyhemoglobin 90.6 % Methemoglobin 0.1 % (0.0-1.9) Carbon Monoxide, Quantitative 0.3 % (0.0-1.9) FiO2 100 SARS-CoV-2 Antigen (Rapid) Negative (NEGATIVE) Lactic Acid Level 2.9 mmol/L (0.4-2.0) Test 05/14/20 20:20 05/14/20 21:35 05/14/20 23:15 05/15/20 00:15 Urine Collection Type U cath Urine Color Yellow Urine Clarity Clear Urine pH 5.5 (<5.0-8.0) Urine Specific [place] >=1.030 (1.000-1.030) Urine Protein 100 mg/dL (NEG-TRACE) Urine Glucose (UA) >=1000 mg/dL (NEG) Urine Ketones (Stick) Negative mg/dL (NEG) Urine Blood Negative (NEG) Urine Nitrite Negative (NEG) Urine Bilirubin Small (NEG) Urine Urobilinogen Dipstick 0.2 mg/dL (0.2 mg/dL) Urine Leukocyte Esterase Negative (NEG) Urine RBC Occ /HPF (0-2) Urine WBC 1-4 /HPF (0-4) Urine Squamous Epithelial Cells Few /LPF Urine Amorphous Sediment Present /HPF Urine Bacteria Few /HPF (0-FEW) Urine Hyaline Casts Occasional /HPF Troponin I Quantitative 0.211 ng/mL (0.000-0.055) 1.190 ng/mL (0.000-0.055) Lactic Acid Level 5.8 mmol/L (0.4-2.0) Test 05/15/20 06:35 05/15/20 07:40 05/15/20 10:10 05/15/20 10:14 Sodium Level 127 mmol/L (136-145) 127 mmol/L (136-145) Potassium Level 4.9 mmol/L (3.5-5.1) 5.5 mmol/L (3.5-5.1) Chloride Level 94 mmol/L (98-107) 93 mmol/L (98-107) Carbon Dioxide Level 14 mmol/L (21-32) 15 mmol/L (21-32) Anion Gap 19 (6-14) 19 (6-14) Blood Urea Nitrogen 35 mg/dL (7-20) 35 mg/dL (7-20) Creatinine 2.5 mg/dL (0.6-1.0) 2.4 mg/dL (0.6-1.0) Estimated GFR (Cockcroft-Gault) 18.8 19.7 Glucose Level 719 mg/dL (70-99) 691 mg/dL (70-99) Calcium Level 8.0 mg/dL (8.5-10.1) 8.0 mg/dL (8.5-10.1) White Blood Count 21.0 x10^3/uL (4.0-11.0) Red Blood Count 3.82 x10^6/uL (3.50-5.40) Hemoglobin 11.1 g/dL (12.0-15.5) Hematocrit 36.8 % (36.0-47.0) Mean Corpuscular Volume 96 fL (79-100) Mean Corpuscular Hemoglobin 29 pg (25-35) Mean Corpuscular Hemoglobin Concent 30 g/dL (31-37) Red Cell Distribution Width 17.2 % (11.5-14.5) Platelet Count 334 x10^3/uL (140-400) Neutrophils (%) (Auto) 90 % (31-73) Lymphocytes (%) (Auto) 8 % (24-48) Monocytes (%) (Auto) 2 % (0-9) Eosinophils (%) (Auto) 0 % (0-3) Basophils (%) (Auto) 0 % (0-3) Neutrophils # (Auto) 19.0 x10^3/uL (1.8-7.7) Lymphocytes # (Auto) 1.6 x10^3/uL (1.0-4.8) Monocytes # (Auto) 0.4 x10^3/uL (0.0-1.1) Eosinophils # (Auto) 0.0 x10^3/uL (0.0-0.7) Basophils # (Auto) 0.0 x10^3/uL (0.0-0.2) Heparin Anti-Xa Act, Unfractionated 0.41 IU/mL (0.30-0.70) Troponin I Quantitative 45.060 ng/mL (0.000-0.055) 33.869 ng/mL (0.000-0.055) Triglycerides Level 233 mg/dL (0-150) Cholesterol Level 88 mg/dL (0-200) LDL Cholesterol, Calculated 25 mg/dL (0-100) VLDL Cholesterol, Calculated 47 mg/dL (0-40) Non-HDL Cholesterol Calculated 72 mg/dL (0-129) HDL Cholesterol 16 mg/dL (40-60) Cholesterol/HDL Ratio 5.5 Glucose (Fingerstick) 532 mg/dL (70-99) Test 05/15/20 11:24 05/15/20 12:09 05/15/20 12:31 05/15/20 13:32 Glucose (Fingerstick) 499 mg/dL (70-99) 478 mg/dL (70-99) 441 mg/dL (70-99) Heparin Anti-Xa Act, Unfractionated 0.44 IU/mL (0.30-0.70) Sodium Level 127 mmol/L (136-145) Potassium Level 3.8 mmol/L (3.5-5.1) Chloride Level 95 mmol/L (98-107) Carbon Dioxide Level 17 mmol/L (21-32) Anion Gap 15 (6-14) Blood Urea Nitrogen 35 mg/dL (7-20) Creatinine 2.3 mg/dL (0.6-1.0) Estimated GFR (Cockcroft-Gault) 20.7 Glucose Level 461 mg/dL (70-99) Calcium Level 7.6 mg/dL (8.5-10.1) Creatine Kinase 484 U/L (26-192) Laboratory Tests Test 05/14/20 18:14 05/14/20 18:15 05/14/20 19:05 05/14/20 19:20 White Blood Count 29.1 x10^3/uL (4.0-11.0) Red Blood Count 4.29 x10^6/uL (3.50-5.40) Hemoglobin 12.4 g/dL (12.0-15.5) Hematocrit 40.5 % (36.0-47.0) Mean Corpuscular Volume 94 fL (79-100) Mean Corpuscular Hemoglobin 29 pg (25-35) Mean Corpuscular Hemoglobin Concent 31 g/dL (31-37) Red Cell Distribution Width 17.0 % (11.5-14.5) Platelet Count 322 x10^3/uL (140-400) Neutrophils (%) (Auto) 70 % (31-73) Lymphocytes (%) (Auto) 22 % (24-48) Monocytes (%) (Auto) 5 % (0-9) Eosinophils (%) (Auto) 2 % (0-3) Basophils (%) (Auto) 1 % (0-3) Neutrophils # (Auto) 20.2 x10^3/uL (1.8-7.7) Lymphocytes # (Auto) 6.5 x10^3/uL (1.0-4.8) Monocytes # (Auto) 1.5 x10^3/uL (0.0-1.1) Eosinophils # (Auto) 0.7 x10^3/uL (0.0-0.7) Basophils # (Auto) 0.2 x10^3/uL (0.0-0.2) Segmented Neutrophils % 50 % (35-66) Band Neutrophils % 3 % (0-9) Lymphocytes % 33 % (24-48) Monocytes % 8 % (0-10) Eosinophils % 5 % (0-5) Metamyelocytes % 1 % (0-0) Toxic Granulation Platelet Estimate Adequate (ADEQUATE) Platelet Clumps, EDTA Present Large Platelets Present Polychromasia Present Poikilocytosis Mod Anisocytosis Slight Microcytosis Slight Helmet Cells Occ Crenated Cell Present Acanthocytes Occ RBC Morphology Bizarre Forms Prothrombin Time 15.7 SEC (11.7-14.0) Prothromb Time International Ratio 1.3 (0.8-1.1) D-Dimer (Kaila) > 20.00 ug/mlFEU Sodium Level 135 mmol/L (136-145) Potassium Level 4.5 mmol/L (3.5-5.1) Chloride Level 101 mmol/L (98-107) Carbon Dioxide Level 15 mmol/L (21-32) Anion Gap 19 (6-14) Blood Urea Nitrogen 33 mg/dL (7-20) Creatinine 2.2 mg/dL (0.6-1.0) Estimated GFR (Cockcroft-Gault) 21.8 Glucose Level 402 mg/dL (70-99) Calcium Level 10.0 mg/dL (8.5-10.1) Magnesium Level 2.8 mg/dL (1.8-2.4) Total Bilirubin 0.6 mg/dL (0.2-1.0) Direct Bilirubin 0.1 mg/dL (0.0-0.2) Aspartate Amino Transf (AST/SGOT) 28 U/L (15-37) Alanine Aminotransferase (ALT/SGPT) 28 U/L (14-59) Alkaline Phosphatase 228 U/L (46-116) Troponin I Quantitative < 0.017 ng/mL (0.000-0.055) DO-Sux-S-Type Natriuretic Peptide 368 pg/mL (0-124) Total Protein 7.8 g/dL (6.4-8.2) Albumin 3.3 g/dL (3.4-5.0) Lipase 265 U/L (73-393) O2 Saturation 91 % (92-99) Arterial Blood pH 7.15 (7.35-7.45) Arterial Blood pCO2 at Patient Temp 34 mmHg (35-46) Arterial Blood pO2 at Patient Temp 73 mmHg (65-108) Arterial Blood HCO3 12 mmol/L (21-28) Arterial Blood Base Excess -16 mmol/L (-3-3) Oxyhemoglobin 90.6 % Methemoglobin 0.1 % (0.0-1.9) Carbon Monoxide, Quantitative 0.3 % (0.0-1.9) FiO2 100 SARS-CoV-2 Antigen (Rapid) Negative (NEGATIVE) Lactic Acid Level 2.9 mmol/L (0.4-2.0) Test 05/14/20 20:20 05/14/20 21:35 05/14/20 23:15 05/15/20 00:15 Urine Collection Type U cath Urine Color Yellow Urine Clarity Clear Urine pH 5.5 (<5.0-8.0) Urine Specific [place] >=1.030 (1.000-1.030) Urine Protein 100 mg/dL (NEG-TRACE) Urine Glucose (UA) >=1000 mg/dL (NEG) Urine Ketones (Stick) Negative mg/dL (NEG) Urine Blood Negative (NEG) Urine Nitrite Negative (NEG) Urine Bilirubin Small (NEG) Urine Urobilinogen Dipstick 0.2 mg/dL (0.2 mg/dL) Urine Leukocyte Esterase Negative (NEG) Urine RBC Occ /HPF (0-2) Urine WBC 1-4 /HPF (0-4) Urine Squamous Epithelial Cells Few /LPF Urine Amorphous Sediment Present /HPF Urine Bacteria Few /HPF (0-FEW) Urine Hyaline Casts Occasional /HPF Troponin I Quantitative 0.211 ng/mL (0.000-0.055) 1.190 ng/mL (0.000-0.055) Lactic Acid Level 5.8 mmol/L (0.4-2.0) Test 05/15/20 06:35 05/15/20 07:40 05/15/20 10:10 05/15/20 10:14 Sodium Level 127 mmol/L (136-145) 127 mmol/L (136-145) Potassium Level 4.9 mmol/L (3.5-5.1) 5.5 mmol/L (3.5-5.1) Chloride Level 94 mmol/L (98-107) 93 mmol/L (98-107) Carbon Dioxide Level 14 mmol/L (21-32) 15 mmol/L (21-32) Anion Gap 19 (6-14) 19 (6-14) Blood Urea Nitrogen 35 mg/dL (7-20) 35 mg/dL (7-20) Creatinine 2.5 mg/dL (0.6-1.0) 2.4 mg/dL (0.6-1.0) Estimated GFR (Cockcroft-Gault) 18.8 19.7 Glucose Level 719 mg/dL (70-99) 691 mg/dL (70-99) Calcium Level 8.0 mg/dL (8.5-10.1) 8.0 mg/dL (8.5-10.1) White Blood Count 21.0 x10^3/uL (4.0-11.0) Red Blood Count 3.82 x10^6/uL (3.50-5.40) Hemoglobin 11.1 g/dL (12.0-15.5) Hematocrit 36.8 % (36.0-47.0) Mean Corpuscular Volume 96 fL (79-100) Mean Corpuscular Hemoglobin 29 pg (25-35) Mean Corpuscular Hemoglobin Concent 30 g/dL (31-37) Red Cell Distribution Width 17.2 % (11.5-14.5) Platelet Count 334 x10^3/uL (140-400) Neutrophils (%) (Auto) 90 % (31-73) Lymphocytes (%) (Auto) 8 % (24-48) Monocytes (%) (Auto) 2 % (0-9) Eosinophils (%) (Auto) 0 % (0-3) Basophils (%) (Auto) 0 % (0-3) Neutrophils # (Auto) 19.0 x10^3/uL (1.8-7.7) Lymphocytes # (Auto) 1.6 x10^3/uL (1.0-4.8) Monocytes # (Auto) 0.4 x10^3/uL (0.0-1.1) Eosinophils # (Auto) 0.0 x10^3/uL (0.0-0.7) Basophils # (Auto) 0.0 x10^3/uL (0.0-0.2) Heparin Anti-Xa Act, Unfractionated 0.41 IU/mL (0.30-0.70) Troponin I Quantitative 45.060 ng/mL (0.000-0.055) 33.869 ng/mL (0.000-0.055) Triglycerides Level 233 mg/dL (0-150) Cholesterol Level 88 mg/dL (0-200) LDL Cholesterol, Calculated 25 mg/dL (0-100) VLDL Cholesterol, Calculated 47 mg/dL (0-40) Non-HDL Cholesterol Calculated 72 mg/dL (0-129) HDL Cholesterol 16 mg/dL (40-60) Cholesterol/HDL Ratio 5.5 Glucose (Fingerstick) 532 mg/dL (70-99) Test 05/15/20 11:24 05/15/20 12:09 05/15/20 12:31 05/15/20 13:32 Glucose (Fingerstick) 499 mg/dL (70-99) 478 mg/dL (70-99) 441 mg/dL (70-99) Heparin Anti-Xa Act, Unfractionated 0.44 IU/mL (0.30-0.70) Sodium Level 127 mmol/L (136-145) Potassium Level 3.8 mmol/L (3.5-5.1) Chloride Level 95 mmol/L (98-107) Carbon Dioxide Level 17 mmol/L (21-32) Anion Gap 15 (6-14) Blood Urea Nitrogen 35 mg/dL (7-20) Creatinine 2.3 mg/dL (0.6-1.0) Estimated GFR (Cockcroft-Gault) 20.7 Glucose Level 461 mg/dL (70-99) Calcium Level 7.6 mg/dL (8.5-10.1) Creatine Kinase 484 U/L (26-192) Medications Current Medications Iodixanol (Visipaque 320) 100 ml STK-MED ONCE .ROUTE ; Start 05/14/20 at 18:14; Stop 05/14/20 at 18:15; Status DC Lidocaine HCl (Lidocaine 1% 20ml Vial) 20 ml STK-MED ONCE .ROUTE ; Start 05/14/20 at 18:14; Stop 05/14/20 at 18:15; Status DC Heparin Sodium/ Sodium Chloride 500 ml @ As Directed STK-MED ONCE .ROUTE ; Start 05/14/20 at 18:15; Stop 05/14/20 at 18:15; Status DC Fentanyl Citrate (Fentanyl 2ml Vial) 100 mcg STK-MED ONCE .ROUTE ; Start 05/14/20 at 18:15; Stop 05/14/20 at 18:16; Status DC Midazolam HCl (Versed) 2 mg STK-MED ONCE .ROUTE ; Start 05/14/20 at 18:16; Stop 05/14/20 at 18:16; Status DC Dopamine HCl/ Dextrose 250 ml @ As Directed STK-MED ONCE IV ; Start 05/14/20 at 18:17; Stop 05/14/20 at 18:18; Status DC Sodium Chloride 1,000 ml @ 1,000 mls/hr Q1H IV Last administered on 05/14/20at 18:14; Start 05/14/20 at 18:15; Stop 05/14/20 at 19:14; Status DC Heparin Sodium/ Sodium Chloride 500 ml @ As Directed STK-MED ONCE .ROUTE ; Start 05/14/20 at 18:19; Stop 05/14/20 at 18:19; Status DC Dopamine HCl/ Dextrose 250 ml @ 13.538 mls/ hr 1X ONCE IV Last administered on 05/14/20at 18:19; Start 05/14/20 at 18:30; Stop 05/15/20 at 03:03; Status DC Aspirin (Aspirin Chewable) 162 mg 1X ONCE PO ; Start 05/14/20 at 18:30; Stop 05/14/20 at 18:31; Status DC Aspirin (Aspirin Chewable) 81 mg DAILYWBKFT PO Last administered on 05/15/20at 11:31; Start 05/15/20 at 08:00 Norepinephrine Bitartrate 8 mg/ Dextrose 258 ml @ 13.971 mls/ hr 1X ONCE IV Last administered on 05/14/20at 18:50; Start 05/14/20 at 19:00; Stop 05/15/20 at 13:28; Status DC Sodium Bicarbonate 150 meq/Sterile Water 1,150 ml @ 125 mls/hr 1X ONCE IV Last administered on 05/14/20at 19:25; Start 05/14/20 at 19:30; Stop 05/15/20 at 04:41; Status DC Sodium Chloride 1,000 ml @ 1,000 mls/hr 1X ONCE IV Last administered on 05/14/20at 19:27; Start 05/14/20 at 19:15; Stop 05/14/20 at 20:14; Status DC Piperacillin Sod/ Tazobactam Sod 3.375 gm/Sodium Chloride 50 ml @ 100 mls/hr 1X ONCE IV ; Start 05/14/20 at 19:15; Stop 05/14/20 at 19:44; Status UNV Vancomycin HCl 1.25 gm/Sodium Chloride 250 ml @ 166.667 mls/hr 1X ONCE IV Last administered on 05/14/20at 20:24; Start 05/14/20 at 19:15; Stop 05/14/20 at 20:44; Status DC Piperacillin Sod/ Tazobactam Sod 2.25 gm/Sodium Chloride 50 ml @ 100 mls/hr 1X ONCE IV Last administered on 05/14/20at 19:58; Start 05/14/20 at 19:15; Stop 05/14/20 at 19:44; Status DC Iohexol (Omnipaque 350 Mg/ml) 100 ml 1X ONCE IV Last administered on 05/14/20at 20:03; Start 05/14/20 at 20:00; Stop 05/14/20 at 20:01; Status DC Info (CONTRAST GIVEN -- Rx MONITORING) 1 each PRN DAILY PRN MC SEE COMMENTS; Start 05/14/20 at 20:15; Stop 05/16/20 at 20:14 Vasopressin 20 unit/Dextrose 101 ml @ 11.882 mls/ hr 1X ONCE IV Last administered on 05/14/20at 20:36; Start 05/14/20 at 20:15; Stop 05/15/20 at 04:45; Status DC Ondansetron HCl (Zofran) 4 mg PRN Q8HRS PRN IV NAUSEA/VOMITING; Start 05/14/20 at 22:00; Stop 05/15/20 at 21:59 Heparin Sodium (Porcine) (Heparin Sodium) 4,000 unit 1X ONCE IV Last administered on 05/14/20at 23:09; Start 05/14/20 at 22:15; Stop 05/14/20 at 22:16; Status DC Heparin Sodium/ Dextrose 250 ml @ 0 mls/hr CONT PRN IV PER PROTOCOL Last administered on 05/14/20at 23:10; Start 05/14/20 at 22:15 Heparin Sodium (Porcine) (Heparin Sodium) 1,800 unit PRN Q6HRS PRN IV FOR UFH LEVEL LESS THAN 0.2; Start 05/14/20 at 22:15 Norepinephrine Bitartrate 8 mg/ Dextrose 258 ml @ 13.971 mls/ hr 1X ONCE IV Last administered on 05/15/20at 04:25; Start 05/14/20 at 22:15; Stop 05/15/20 at 07:03; Status DC Acetaminophen (Tylenol) 1,000 mg 1X ONCE PO Last administered on 05/14/20at 23:04; Start 05/14/20 at 22:30; Stop 05/14/20 at 22:39; Status DC Dopamine HCl/ Dextrose 250 ml @ 13.538 mls/ hr CONT PRN IV SEE I/O RECORD Last administered on 05/15/20at 14:26; Start 05/14/20 at 23:00 Vasopressin 20 unit/Dextrose 101 ml @ 12 mls/hr CONT PRN IV SEE I/O RECORD Last administered on 05/15/20at 11:04; Start 05/14/20 at 23:00 Norepinephrine Bitartrate 8 mg/ Dextrose 258 ml @ 13.971 mls/ hr CONT PRN IV PER PROTOCOL Last administered on 05/15/20at 11:02; Start 05/14/20 at 23:00; Stop 05/15/20 at 14:59 Hydrocortisone Sodium Succinate (Solu-CORTEF) 100 mg Q12HR IVP Last administered on 05/15/20at 11:33; Start 05/15/20 at 09:00; Stop 05/15/20 at 14:32; Status DC Vancomycin HCl 1.25 gm/Sodium Chloride 250 ml @ 166.667 mls/hr 1X ONCE IV Last administered on 05/15/20at 02:34; Start 05/15/20 at 01:00; Stop 05/15/20 at 02:29; Status DC Piperacillin Sod/ Tazobactam Sod 2.25 gm/Sodium Chloride 50 ml @ 100 mls/hr 1X ONCE IV Last administered on 05/15/20at 01:02; Start 05/15/20 at 01:00; Stop 05/15/20 at 01:29; Status DC Sodium Chloride 1,000 ml @ 100 mls/hr 1X ONCE IV Last administered on 05/15/20at 01:02; Start 05/15/20 at 01:00; Stop 05/15/20 at 10:59; Status DC Acetaminophen/ Aspirin/Caffeine (Excedrin Migraine) 1 tab PRN Q6HRS PRN PO MIGRAINE HEADACHE Last administered on 05/15/20at 03:11; Start 05/15/20 at 03:00 Fentanyl Citrate (Fentanyl 2ml Vial) 50 mcg PRN Q3HRS PRN IVP PAIN Last administered on 05/15/20at 11:43; Start 05/15/20 at 03:00 Insulin Human Lispro (HumaLOG) 0-9 UNITS Q6HRS SQ ; Start 05/15/20 at 12:00 Dextrose (Dextrose 50%-Water Syringe) 12.5 gm PRN Q15MIN PRN IV SEE COMMENTS; Start 05/15/20 at 07:30 Insulin Human Lispro (HumaLOG) 14 units 1X ONCE SQ Last administered on 05/15/20at 06:44; Start 05/15/20 at 06:45; Stop 05/15/20 at 06:46; Status DC Info (Anti-Coagulation Monitoring By Pharmacy) 1 each PRN DAILY PRN MC SEE COMMENTS Last administered on 05/15/20at 08:20; Start 05/15/20 at 08:00 Insulin Human Regular 100 unit/ Sodium Chloride 101 ml @ 0 mls/hr CONT PRN IV SEE I/O RECORD Last administered on 05/15/20at 08:59; Start 05/15/20 at 08:30 Vancomycin HCl (Vanco Per Pharmacy) 1 each PRN DAILY PRN MC SEE COMMENTS Last administered on 05/15/20at 10:04; Start 05/15/20 at 08:30 Piperacillin Sod/ Tazobactam Sod (Zosyn Per Pharmacy) 1 each PRN DAILY PRN MC SEE COMMENTS; Start 05/15/20 at 08:30 Polyethylene Glycol (miraLAX PACKET) 17 gm DAILY PO Last administered on 05/15/20at 11:32; Start 05/15/20 at 09:00 Polyethylene Glycol (miraLAX PACKET) 17 gm PRN DAILY PRN PO CONSTIPATION Last administered on 05/15/20at 13:43; Start 05/15/20 at 08:30 Docusate Sodium (Colace) 100 mg DAILY PO Last administered on 05/15/20at 11:31; Start 05/15/20 at 09:00 Sodium Chloride 1,000 ml @ 1,000 mls/hr 1X ONCE IV Last administered on 05/15/20at 08:41; Start 05/15/20 at 08:30; Stop 05/15/20 at 09:29; Status DC Sodium Bicarbonate 150 meq/Sterile Water 1,150 ml @ 125 mls/hr Q9H12M IV Last administered on 05/15/20at 10:31; Start 05/15/20 at 09:00 Vancomycin HCl (Vancomycin Random Level) 1 each 1X ONCE MC ; Start 05/17/20 at 06:00; Stop 05/17/20 at 06:01 Piperacillin Sod/ Tazobactam Sod 2.25 gm/Sodium Chloride 50 ml @ 100 mls/hr Q6HRS IV ; Start 05/15/20 at 11:00; Stop 05/15/20 at 09:43; Status DC Piperacillin Sod/ Tazobactam Sod 2.25 gm/Sodium Chloride 50 ml @ 100 mls/hr Q8HRS IV Last administered on 05/15/20at 10:29; Start 05/15/20 at 11:00 Albuterol/ Ipratropium (Duoneb) 3 ml RTQID NEB Last administered on 05/15/20at 12:35; Start 05/15/20 at 12:00 Magnesium Sulfate 50 ml @ 25 mls/hr PRN DAILY PRN IV for Mag < 1.7 on am labs; Start 05/15/20 at 13:30 Sodium Monofluorophosphate (Fleet Adult) 133 ml DAILY PRN IA CONSTIPATION; Start 05/15/20 at 13:45 Norepinephrine Bitartrate 32 mg/ Dextrose 282 ml @ 3.818 mls/ hr CONT PRN IV PER PROTOCOL Last administered on 05/15/20at 14:26; Start 05/15/20 at 15:00 Hydrocortisone Sodium Succinate (Solu-CORTEF) 100 mg Q8HRS IVP ; Start 05/15/20 at 16:00; Status UNV Budesonide (Pulmicort) 0.5 mg RTBID NEB ; Start 05/15/20 at 20:00; Status UNV Budesonide (Pulmicort) 0.5 mg 1X ONCE NEB ; Start 05/15/20 at 14:30; Stop 05/15/20 at 14:31; Status UNV Active Scripts Active Effient (Prasugrel Hcl) 10 Mg Tablet 10 Mg PO [id number] 30 Days Atorvastatin Calcium 40 Mg Tablet 80 Mg PO QHS Reported Furosemide 20 Mg Tablet 1 Tab PO DAILY Bupropion Xl (Bupropion Hcl) 150 Mg Tab.er.24h 150 Mg PO BID Tramadol Hcl 50 Mg Tablet 50 Mg PO Q4HRS PRN Cyclobenzaprine Hcl 5 Mg Tablet 5 Mg PO TID PRN Montelukast Sodium Tablet (Montelukast Sodium) 10 Mg Tablet 10 Mg PO HS Spironolactone 25 Mg Tablet 1 Tab PO DAILY Ranitidine Hcl 150 Mg Capsule 150 Mg PO DAILY Naproxen 500 Mg Tablet 1 Tab PO BID 30 Days Abilify (Aripiprazole) 2 Mg Tablet 2 Mg PO DAILY Tegretol (Carbamazepine) 200 Mg Tablet 200 Mg PO QHS Metoprolol Succinate ( Xl ) (Metoprolol Succinate) 25 Mg Tab.er.24h 12.5 Mg PO DAILY Klonopin (Clonazepam) 0.5 Mg Tablet 0.5 Mg PO PRN BID PRN Fish Oil 1,000 Mg Capsule (Atkinson-3 Fatty Acids/Fish Oil) 1 Each Capsule 1 Each PO TID Cymbalta (Duloxetine Hcl) 60 Mg Capsule.dr 120 Mg PO DAILY Loperamide (Loperamide Hcl) 2 Mg Capsule 2 Mg PO Zyrtec (Cetirizine Hcl) 10 Mg Tablet 1 Tab PO DAILY Zonisamide 100 Mg Capsule 100 Mg PO TID Protonix (Pantoprazole Sodium) 20 Mg Tablet.dr 40 Mg PO DAILY Nortriptyline Hcl 25 Mg Capsule 50 Mg PO HS Duoneb 0.5-3(2.5) Mg/3 Ml (Albuterol/Ipratropium) 3 Ml Ampul.neb 3 Ml NEB TID Multivitamins (Multivitamin) 1 Each Tablet 1 Tab PO DAILY Mirtazapine 15 Mg Tablet 30 Mg PO QHS Lisinopril 5 Mg Tablet 1 Tab PO DAILY Vitamin B-12 (Cyanocobalamin (Vitamin B-12)) 1,000 Mcg Tablet 1 Tab PO DAILY Vitamin D (Cholecalciferol (Vitamin D3)) 1,000 Unit Capsule 1 Cap PO DAILY Ascorbic Acid 500 Mg Tablet 500 Mg PO BID Voltaren (Diclofenac Sodium) 100 Gm Gel..gram. 100 Gm TP QID Levemir Flextouch (Insulin Detemir) 100 Unit/1 Ml Insuln.pen 36 Unit SQ BID Flonase Allergy Relief (Fluticasone Propionate) 9.9 Ml Beccaria.susp 2 Spr NS DAILY Aspir 81 (Aspirin) 81 Mg Tablet.dr 81 Mg PO DAILY Ropinirole Hcl 1 Mg Tablet 1 Mg PO QHS Novolog (Insulin Aspart) 100 Unit/1 Ml Cartridge 6 Unit SQ TIDAC Vitals/I & O Vital Sign - Last 24 Hours 05/14/20 05/14/20 05/14/20 05/14/20 17:56 18:14 18:20 18:39 Pulse 98 98 94 96 Resp 24 B/P (MAP) 80/30 (47) 68/35 (46) 82/36 (51) 48/30 (36) Pulse Ox 99 100 97 O2 Delivery NonRebreather Mask NonRebreather Mask NonRebreather Mask NonRebrea ther Mask O2 Flow Rate 15.0 15.0 15.0 05/14/20 05/14/20 05/14/20 05/14/20 18:41 18:45 18:47 18:51 Pulse 94 94 92 94 B/P (MAP) 51/33 (39) 41/25 (30) 44/29 (34) 53/33 (40) Pulse Ox 95 95 97 100 O2 Delivery NonRebreather Mask NonRebreather Mask NonRebreather Mask NonRebreather Mask O2 Flow Rate 15.0 15.0 15.0 15.0 05/14/20 05/14/20 05/14/20 05/14/20 18:52 18:56 18:59 19:02 Pulse 98 108 112 114 B/P (MAP) 68/35 (46) 72/39 (50) 77/43 (54) 81/40 (54) Pulse Ox 100 100 100 100 O2 Delivery NonRebreather Mask NonRebreather Mask NonRebreather Mask NonRebreather Mask O2 Flow Rate 15.0 15.0 15.0 15.0 05/14/20 05/14/20 05/14/20 05/14/20 19:05 19:08 19:11 19:14 Pulse 114 114 112 112 B/P (MAP) 85/34 (51) 81/46 (58) 83/35 (51) 93/53 (66) Pulse Ox 100 100 100 100 O2 Delivery NonRebreather Mask NonRebreather Mask NonRebreather Mask NonRebreather Mask O2 Flow Rate 15.0 15.0 15.0 15.0 05/14/20 05/14/20 05/14/20 05/14/20 19:17 19:20 19:23 19:26 Pulse 110 108 106 108 B/P (MAP) 80/42 (55) 79/34 (49) 87/43 (58) 93/40 (57) Pulse Ox 99 100 O2 Delivery NonRebreather Mask NonRebreather Mask NonRebreather Mask NonRebreather Mask O2 Flow Rate 15.0 15.0 15.0 15.0 05/14/20 05/14/20 05/14/20 05/14/20 19:29 19:32 19:35 19:38 Pulse 110 110 110 110 B/P (MAP) 86/38 (54) 88/43 (58) 85/41 (56) 97/42 (60) Pulse Ox 100 100 100 100 O2 Delivery NonRebreather Mask NonRebreather Mask NonRebreather Mask NonRebreather Mask O2 Flow Rate 15.0 15.0 15.0 15.0 05/14/20 05/14/20 05/14/20 05/14/20 19:41 19:44 19:45 19:47 Pulse 110 110 110 110 B/P (MAP) 93/43 (60) 80/36 (51) 82/37 (52) 72/31 (45) Pulse Ox 100 100 98 97 O2 Delivery NonRebreather Mask NonRebreather Mask NonRebreather Mask NonRebreather Mask O2 Flow Rate 15.0 15.0 15.0 15.0 05/14/20 05/14/20 05/14/20 05/14/20 19:50 19:53 19:56 19:59 Pulse 110 102 100 102 B/P (MAP) 73/32 (46) 75/37 (50) 68/28 (41) 74/31 (45) Pulse Ox 98 100 100 100 O2 Delivery NonRebreather Mask NonRebreather Mask NonRebreather Mask NonRebreather Mask O2 Flow Rate 15.0 15.0 15.0 15.0 05/14/20 05/14/20 05/14/20 05/14/20 20:02 20:05 20:08 20:11 Pulse 102 102 104 108 B/P (MAP) 63/55 (58) 73/31 (45) 73/39 (50) 75/37 (50) Pulse Ox 100 100 100 100 O2 Delivery NonRebreather Mask NonRebreather Mask NonRebreather Mask NonRebreather Mask O2 Flow Rate 15.0 15.0 15.0 15.0 05/14/20 05/14/20 05/14/20 05/14/20 20:14 20:17 20:20 20:23 Pulse 108 104 106 106 B/P (MAP) 92/40 (57) 97/44 (61) 97/39 (58) 73/42 (52) Pulse Ox 98 100 100 100 O2 Delivery NonRebreather Mask NonRebreather Mask NonRebreather Mask NonRebreather Mask O2 Flow Rate 15.0 15.0 15.0 15.0 05/14/20 05/14/20 05/14/20 05/14/20 20:26 20:29 20:32 20:35 Pulse 106 108 106 106 B/P (MAP) 85/43 (57) 87/41 (56) 99/34 (55) 65/52 (56) Pulse Ox 99 97 97 98 O2 Delivery NonRebreather Mask NonRebreather Mask NonRebreather Mask NonRebreather Mask O2 Flow Rate 15.0 15.0 15.0 15.0 05/14/20 05/14/20 05/14/20 05/14/20 20:38 20:39 20:41 20:44 Pulse 106 106 106 108 B/P (MAP) 64/46 (52) 77/32 (47) 85/46 (59) 78/38 (51) Pulse Ox 98 95 96 97 O2 Delivery NonRebreather Mask NonRebreather Mask NonRebreather Mask NonRebreather Mask O2 Flow Rate 15.0 15.0 15.0 15.0 05/14/20 05/14/20 05/14/20 05/14/20 20:47 20:50 20:53 20:56 Pulse 108 108 108 108 B/P (MAP) 80/46 (57) 93/44 (60) 92/52 (65) 101/41 (61) Pulse Ox 96 99 95 94 O2 Delivery NonRebreather Mask NonRebreather Mask NonRebreather Mask NonRebreather Mask O2 Flow Rate 15.0 15.0 15.0 15.0 1/05/14/20 05/14/20 05/14/20 20:59 21:02 21:05 21:08 Pulse 108 108 108 110 Resp B/P (MAP) 75/52 (60) 90/71 (77) 99/71 (80) 87/44 (58) Pulse Ox 97 100 99 98 O2 Delivery NonRebreather Mask NonRebreather Mask NonRebreather Mask NonRebreather Mask O2 Flow Rate 15.0 15.0 15.0 15.0 05/14/20 05/14/20 05/14/20 05/14/20 21:11 21:14 21:17 21:20 Pulse 110 110 112 110 Resp 24 B/P (MAP) 92/40 (57) 96/46 (63) 98/51 (67) 110/54 (72) Pulse Ox 98 98 100 98 O2 Delivery NonRebreather Mask NonRebreather Mask NonRebreather Mask NonRebreather Mask O2 Flow Rate 15.0 15.0 15.0 15.0 05/14/20 05/14/20 05/14/20 05/14/20 21:23 21:26 21:27 21:29 Pulse 112 110 110 110 Resp B/P (MAP) 74/46 (55) 116/43 (67) 102/47 (65) 99/54 (69) Pulse Ox 97 97 98 98 O2 Delivery NonRebreather Mask NonRebreather Mask NonRebreather Mask NonRebreather Mask O2 Flow Rate 15.0 15.0 15.0 15.0 05/14/20 05/14/20 05/14/20 05/14/20 21:32 21:35 21:38 21:41 Pulse 112 112 112 112 Resp B/P (MAP) 110/62 (78) 123/51 (75) 104/58 (73) 119/49 (72) Pulse Ox 98 99 99 99 O2 Delivery NonRebreather Mask NonRebreather Mask NonRebreather Mask NonRebreather Mask O2 Flow Rate 15.0 15.0 15.0 15.0 05/14/20 05/14/20 05/14/20 05/14/20 21:44 21:47 21:50 21:53 Pulse 112 114 114 114 Resp B/P (MAP) 104/47 (66) 112/56 (74) 102/45 (64) 113/50 (71) Pulse Ox 99 97 99 99 O2 Delivery NonRebreather Mask NonRebreather Mask NonRebreather Mask NonRebreather Mask O2 Flow Rate 15.0 15.0 15.0 15.0 05/14/20 05/14/20 05/14/20 05/14/20 21:56 21:59 22:02 22:05 Pulse 114 116 114 114 Resp 25 23 B/P (MAP) 101/54 (70) 110/46 (67) 102/51 (68) 115/58 (77) Pulse Ox 99 96 96 98 O2 Delivery NonRebreather Mask NonRebreather Mask NonRebreather Mask NonRebreather Mask O2 Flow Rate 15.0 15.0 15.0 15.0 05/14/20 05/14/20 05/14/20 05/14/20 22:08 22:11 22:14 22:17 Pulse 118 116 114 116 Resp 25 26 B/P (MAP) 93/53 (66) 131/48 (75) 116/46 (69) 114/45 (68) Pulse Ox 99 96 97 96 O2 Delivery NonRebreather Mask NonRebreather Mask NonRebreather Mask No nRebreather Mask O2 Flow Rate 15.0 15.0 15.0 15.0 05/14/20 05/14/20 05/14/20 05/14/20 22:20 22:23 22:26 22:29 Pulse 114 116 116 116 Resp 24 26 34 B/P (MAP) 113/66 (82) 116/52 (73) 110/59 (76) 123/50 (74) Pulse Ox 99 98 98 97 O2 Delivery NonRebreather Mask NonRebreather Mask NonRebreather Mask NonRebreather Mask O2 Flow Rate 15.0 15.0 15.0 15.0 05/14/20 05/14/20 05/14/20 05/14/20 22:32 22:45 23:00 23:15 Temp 96.6 96.6 Pulse 116 118 118 118 Resp 26 20 20 20 B/P (MAP) 125/55 (78) 126/62 (83) 124/38 (66) 111/52 (71) Pulse Ox 98 96 96 91 O2 Delivery NonRebreather Mask Nasal Cannula Nasal Cannula Nasal Cannula O2 Flow Rate 15.0 6.0 6.0 6.0 05/14/20 05/14/20 05/15/20 05/15/20 23:30 23:47 00:00 01:00 Temp 97.8 97.8 Pulse 118 118 121 Resp 20 20 20 B/P (MAP) 96/52 (67) 102/62 (75) 84/51 (62) Pulse Ox 97 98 100 O2 Delivery Nasal Cannula Nasal Cannula Nasal Cannula Nasal Cannula O2 Flow Rate 6.0 6.0 6.0 6.0 05/15/20 05/15/20 05/15/20 05/15/20 02:00 03:00 03:05 03:35 Pulse 122 120 Resp 20 22 B/P (MAP) 119/56 (77) 119/61 (80) Pulse Ox 98 98 100 100 O2 Delivery Nasal Cannula Nasal Cannula Nasal Cannula Nasal Cannula O2 Flow Rate 6.0 6.0 6.0 6.0 05/15/20 05/15/20 05/15/20 05/15/20 04:00 04:00 05:00 06:00 Pulse 122 118 120 Resp 20 20 20 B/P (MAP) 119/56 (77) 97/51 (66) 96/58 (71) Pulse Ox 95 92 95 O2 Delivery Nasal Cannula Nasal Cannula Nasal Cannula Nasal Cannula O2 Flow Rate 6.0 6.0 6.0 6.0 05/15/20 05/15/20 05/15/20 05/15/20 06:06 06:45 07:00 08:00 Pulse 117 Resp 18 B/P (MAP) 115/73 (87) Pulse Ox 92 94 94 O2 Delivery Nasal Cannula Nasal Cannula Nasal Cannula Nasal Cannula O2 Flow Rate 6.0 6.0 6.0 6.0 05/15/20 05/15/20 05/15/20 05/15/20 08:00 09:00 10:00 11:00 Temp 98.4 98.4 Pulse 114 112 110 107 Resp 36 31 B/P (MAP) 132/49 (76) 151/63 (92) 113/52 (72) 110/66 (81) Pulse Ox 95 95 98 92 O2 Delivery Nasal Cannula Nasal Cannula Nasal Cannula Nasal Cannula O2 Flow Rate 6.0 6.0 4.0 4.0 05/15/20 05/15/20 05/15/20 05/15/20 11:43 12:00 12:00 12:30 Temp 100.1 100.1 Pulse 108 109 Resp 32 32 B/P (MAP) 74/61 (65) 100/51 (67) Pulse Ox 92 93 O2 Delivery Nasal Cannula Nasal Cannula Nasal Cannula O2 Flow Rate 4.0 4.0 4.0 05/15/20 05/15/20 05/15/20 05/15/20 12:35 12:42 13:00 13:15 Pulse 112 112 Resp 34 B/P (MAP) 140/64 (89) 135/65 (88) Pulse Ox 95 92 93 O2 Delivery Nasal Cannula Nasal Cannula Nasal Cannula O2 Flow Rate 4.0 4.0 2.0 05/15/20 05/15/20 14:00 14:15 Pulse 110 Resp 33 B/P (MAP) 171/81 (111) 101/67 (78) Pulse Ox 93 O2 Delivery Nasal Cannula O2 Flow Rate 2.0 Intake and Output 05/14/20 05/14/20 05/15/20 15:00 23:00 07:00 Intake Total 2199.96 ml 2549 ml Output Total 1610 ml Balance 2199.96 ml 939 ml Justifications for Admission Other Justification BENSON MERA MD May 15, 2020 14:51
[2020-05-15] MEDS: HYDROCORTISONE SOD SUCC/PF 100 MG/2 ML VIAL. IVP SCH ×2 (16:34→21:56)
[2020-05-15] MEDS: SODIUM PHOSPHATES 19/7GM 133 ML ENEMA. PR PRN (16:38)
[2020-05-15] MEDS: BUDESONIDE 0.5 MG/2 ML NEBU. NEB SCH (20:00)
[2020-05-15] MEDS: HEPARIN 25,000UTS/250ML PREMIX 250 ML IV PRN (22:01)
[2020-05-16] VITALS (25 sets, daily range): BP systolic 77–172; BP diastolic 43–86
[2020-05-16] MEDS: ONDANSETRON PF 4 MG/2 ML VIAL. IVP PRN ×2 (03:16→21:23)
[2020-05-16] MEDS: SODIUM BICARBONATE VIAL 150 MEQ in IV STERILE WATER 1,000 ML IV SCH (03:20)
[2020-05-16] MEDS: PIPERACILLIN/TAZOBACTAM 2.25 GM in IV NORMAL SALINE 50ML 50 ML IV SCH ×2 (05:26→17:41)
[2020-05-16] MEDS: HYDROCORTISONE SOD SUCC/PF 100 MG/2 ML VIAL. IVP SCH ×3 (05:26→21:29)
[2020-05-16] MEDS: INSULIN LISPRO 300 UNITS/3 ML VIAL. SQ SCH ×4 (05:32→17:41)
[2020-05-16 06:02] LABS: BASO % 0 % (0-3); EOS % 0 % (0-3); HEMATOCRIT 31.9 % (36.0-47.0); HEMOGLOBIN 10.1 g/dL (12.0-15.5); LYMPH # 2.1 x10^3/uL (1.0-4.8); LYMPH % 9 % (24-48); MEAN CORPUSCULAR HEMOGLOBIN 28 pg (25-35); MEAN CORPUSCULAR HGB CONC 32 g/dL (31-37); MEAN CORPUSCULAR VOLUME 89 fL (79-100); MONO # 0.5 x10^3/uL (0.0-1.1); MONO % 2 % (0-9); NEUT # 21.2 x10^3/uL (1.8-7.7); NEUT % 89 % (31-73); PLATELET COUNT 277 x10^3/uL (140-400); RED CELL DISTRIBUTION WIDTH 16.7 % (11.5-14.5); WHITE BLOOD COUNT 23.9 x10^3/uL (4.0-11.0)
[2020-05-16 06:26] LABS: ALBUMIN 1.8 g/dL (3.4-5.0); ALBUMIN/GLOBULIN RATIO 0.5 (1.0-1.7); CALCIUM 7.5 mg/dL (8.5-10.1); CREATININE 1.5 mg/dL (0.6-1.0); GFR 33.9; MAGNESIUM 2.5 mg/dL (1.8-2.4); PHOSPHORUS 4.2 mg/dL (2.6-4.7); POTASSIUM 3.4 mmol/L (3.5-5.1); TOTAL BILIRUBIN 0.4 mg/dL (0.2-1.0); TOTAL PROTEIN 5.6 g/dL (6.4-8.2)
[2020-05-16] MEDS: fentaNYL PF VIAL 100 MCG/2 ML VIAL IVP PRN ×2 (06:49→12:48)
[2020-05-16] MEDS: DOCUSATE SODIUM 100 MG CAPSULE. PO SCH (07:31)
[2020-05-16] MEDS: POLYETHYLENE GLYCOL 3350 17 GM PACKET. PO SCH ×2 (07:31→12:11)
[2020-05-16] MEDS: ASPIRIN CHEWABLE 81 MG TABLET. PO SCH (07:31)
[2020-05-16] MEDS: VASOPRESSIN 20 UNIT in IV DEXTROSE 5% 100ML 100 ML IV PRN ×2 (07:32→19:48)
[2020-05-16] MEDS: IPRATRPIUM/ALBUTEROL 0.5/2.5MG 3 ML NEBU. NEB SCH ×3 (07:56→19:46)
[2020-05-16] MEDS: BUDESONIDE 0.5 MG/2 ML NEBU. NEB SCH ×2 (07:57→19:46)
--- NOTE | 2020-05-16 08:31 | PDOC ---
DATE OF SERVICE: DOS: DATE: 05/16/20 TIME: 08:27 SUBJECTIVE ROS Follow-up for acute renal failure Patient appears to be doing a little better hemodynamically. She is gradually being weaned off of her pressors. She does required a Ventimask for oxygenation however appears to be less short of breath and is lying relatively flat this morning. CVS: Minimal orthopnea, rare CP RESP: Positive SOB, ? TOBIAS -not ambulated GI: No nausea, no vomiting : No dysuria, no urgency OBJECTIVE Vital Signs Vital Signs Date Time Temp Pulse Resp B/P (MAP) Pulse Ox O2 Delivery O2 Flow Rate FiO2 05/16/20 08:00 98.6 102 24 121/70 (87) 90 Venturi Mask 3.0 98.6 I & 0 Intake and Output 05/16/20 07:00 Intake Total 6218.05 ml Output Total 1815 ml Balance 4403.05 ml Intake Oral 500 ml IV Total 5718.05 ml Output Urine Total 1815 ml # Bowel Movements 1 PHYSICAL EXAM Physical Exam General Appearance: Awake Alert Oriented x 3 In min resp related Distress Eyes: VIsion Unchanged Conjunctiva Normal EN: No EN Drainage Mucous Memb. moist Neck: no JVD no JVP Supple no Thyromegaly, short and thick CVS: S1 S2 possible soft murmur No Gallop No Rub no pretibial edema Resp: Rare basal Rales no rhonchi no current Acc. Muscle use GI: BS +ve NO Bruit Non Tender Non Distended, anterior abdominal wall hernia : no CVA tenderness; no Suprapubic Tenderness SKIN: no visible petechial rashes Breast Exam deferred Mu.Sk: Adequate ROM no muscle Atrophy Heme: Unable to palpate Obvious LAD no palpable splenomegaly NEURO: Good Strength and Tone Cranial Nerves II - XII grossly intact Psych: Not depressed no active hallucination DIAGNOSIS/ASSESSMENT Assessment & Plan ARF: This is etiology unclear at this time. Creatinine was elevated at admission even prior to IV contrast administration for CTA. Possibly associated with NSAID use in the setting of diuretic as well as JOSE RAMON inhibitor use. Fluid balance is approximately 4 L positive and Creatinine is trending downwards grad ually. Urine output is adequate Hypotension: Suspected sepsis versus cardiogenic shock: Appears to have responded well to IV fluids; pressors are being weaned at this time Hypokalemia: Replace per protocol. Magnesium is adequate anion gap metabolic acidosis: Now resolved so we will stop bicarb containing fluids pending pulmonary evaluation. Possible sepsis/septic shock: May need IV albumin ordered for volume expansion pending pulmonary evaluation of subjective shortness of breath Subjective shortness of breath: Await pulmonary evaluation Possible poorly controlled diabetes associated volume depletion cannot be ruled out. Patient was noted to have significant glycosuria at admission. Appears to be adequately volume replete at this time. Hyponatremia: Previously felt to be pseudohyponatremia however sugars have corrected now. Will check osmolalities Non-STEMI: Defer to cardiology regarding timing of need for cardiac cath Marginal anemia: Watch trend for now Constipation: Defer to primary team Possible history of underlying chronic kidney disease cannot be ruled out Severe hypoalbuminemia: Unclear etiology. May need liver assessment if urine protein creatinine ratio reveals minimal proteinuria Discussed Plan of Care and prognosis etc. at length with family and ICU nurse at bedside. COMMENT/RELEVANT DATA Meds Current Medications Medications (Trade) Dose Ordered Sig/Morgan Start Time Stop Time Status Last Admin Dose Admin Acetaminophen (Tylenol) 1,000 mg 1X ONCE 05/14/20 22:30 05/14/20 22:39 DC 05/14/20 23:04 1,000 MG Acetaminophen/ Aspirin/Caffeine (Excedrin Migraine) 1 tab PRN Q6HRS PRN 05/15/20 03:00 05/15/20 03:11 1 TAB Albuterol/ Ipratropium (Duoneb) 3 ml RTQID 05/15/20 12:00 05/16/20 07:56 3 ML Aspirin (Aspirin Chewable) 81 mg [id number] 05/15/20 08:00 05/16/20 07:31 81 MG Budesonide (Pulmicort) 0.5 mg 1X ONCE 05/15/20 14:30 05/15/20 14:54 DC 05/15/20 15:48 0.5 MG Dextrose (Dextrose 50%-Water Syringe) 12.5 gm PRN Q15MIN PRN 05/15/20 07:30 Docusate Sodium (Colace) 100 mg DAILY 05/15/20 09:00 05/16/20 07:31 100 MG Dopamine HCl/ Dextrose 250 ml @ 13.538 mls/ hr CONT PRN 05/14/20 23:00 05/15/20 20:57 27.075 MLS/HR Fentanyl Citrate (Fentanyl 2ml Vial) 50 mcg PRN Q3HRS PRN 05/15/20 03:00 05/16/20 06:49 50 MCG Heparin Sodium (Porcine) (Heparin Sodium) 1,800 unit PRN Q6HRS PRN 05/14/20 22:15 05/16/20 07:31 1,800 UNIT Heparin Sodium/ Dextrose 250 ml @ 0 mls/hr CONT PRN 05/14/20 22:15 05/15/20 22:01 8.8 MLS/HR Heparin Sodium/ Sodium Chloride 500 ml @ As Directed STK-MED ONCE 05/14/20 18:19 05/14/20 18:19 DC Hydrocortisone Sodium Succinate (Solu-CORTEF) 100 mg Q8HRS 05/15/20 16:00 05/16/20 05:26 100 MG Info (Anti-Coagulation Monitoring By Pharmacy) 1 each PRN DAILY PRN 05/15/20 08:00 05/15/20 08:20 1 EACH Info (CONTRAST GIVEN -- Rx MONITORING) 1 each PRN DAILY PRN 05/14/20 20:15 05/16/20 20:14 Insulin Human Lispro (HumaLOG) 14 units 1X ONCE 05/15/20 06:45 05/15/20 06:46 DC 05/15/20 06:44 14 UNITS Insulin Human Regular 100 unit/ Sodium Chloride 101 ml @ 0 mls/hr CONT PRN 05/15/20 08:30 05/15/20 21:18 13.029 MLS/HR Iodixanol (Visipaque 320) 100 ml STK-MED ONCE 05/14/20 18:14 05/14/20 18:15 DC Iohexol (Omnipaque 350 Mg/ml) 100 ml 1X ONCE 05/14/20 20:00 05/14/20 20:01 DC 05/14/20 20:03 100 ML Lidocaine HCl (Lidocaine 1% 20ml Vial) 20 ml STK-MED ONCE 05/14/20 18:14 05/14/20 18:15 DC Magnesium Sulfate 50 ml @ 25 mls/hr PRN DAILY PRN 05/15/20 13:30 Midazolam HCl (Versed) 2 mg STK-MED ONCE 05/14/20 18:16 05/14/20 18:16 DC Norepinephrine Bitartrate 32 mg/ Dextrose 282 ml @ 3.818 mls/ hr CONT PRN 05/15/20 15:00 05/15/20 14:26 20.615 MLS/HR Norepinephrine Bitartrate 8 mg/ Dextrose 258 ml @ 13.971 mls/ hr CONT PRN 05/14/20 23:00 05/15/20 14:59 DC 05/15/20 11:02 82.427 MLS/HR Ondansetron HCl (Zofran) 4 mg PRN Q8HRS PRN 05/16/20 03:15 05/16/20 03:16 4 MG Piperacillin Sod/ Tazobactam Sod (Zosyn Per Pharmacy) 1 each PRN DAILY PRN 05/15/20 08:30 Piperacillin Sod/ Tazobactam Sod 2.25 gm/Sodium Chloride 50 ml @ 100 mls/hr Q8HRS 05/15/20 11:00 05/16/20 05:26 100 MLS/HR Piperacillin Sod/ Tazobactam Sod 3.375 gm/Sodium Chloride 50 ml @ 100 mls/hr 1X ONCE 05/14/20 19:15 05/14/20 19:44 UNV Polyethylene Glycol (miraLAX PACKET) 17 gm PRN DAILY PRN 05/15/20 08:30 05/15/20 13:43 17 GM Sodium Bicarbonate 150 meq/Sterile Water 1,150 ml @ 125 mls/hr Q9H12M 05/15/20 09:00 05/16/20 03:20 125 MLS/HR Sodium Monofluorophosphate (Fleet Adult) 133 ml DAILY PRN 05/15/20 13:45 05/15/20 16:38 133 ML Sodium Chloride 1,000 ml @ 1,000 mls/hr 1X ONCE 05/15/20 08:30 05/15/20 09:29 DC 05/15/20 08:41 1,000 MLS/HR Vancomycin HCl (Vanco Per Pharmacy) 1 each PRN DAILY PRN 05/15/20 08:30 05/15/20 10:04 1 EACH Vancomycin HCl (Vancomycin Random Level) 1 each 1X ONCE 05/17/20 06:00 05/17/20 06:01 Vancomycin HCl 1.25 gm/Sodium Chloride 250 ml @ 166.667 mls/hr 1X ONCE 05/15/20 01:00 05/15/20 02:29 DC 05/15/20 02:34 166.667 MLS/HR Vasopressin 20 unit/Dextrose 101 ml @ 12 mls/hr CONT PRN 05/14/20 23:00 05/16/20 07:32 12 MLS/HR Lab Laboratory Tests Test 05/15/20 10:10 05/15/20 10:14 05/15/20 11:24 05/15/20 12:09 Troponin I Quantitative 33.869 ng/mL (0.000-0.055) Glucose (Fingerstick) 532 mg/dL (70-99) 499 mg/dL (70-99) Heparin Anti-Xa Act, Unfractionated 0.44 IU/mL (0.30-0.70) Sodium Level 127 mmol/L (136-145) Potassium Level 3.8 mmol/L (3.5-5.1) Chloride Level 95 mmol/L (98-107) Carbon Dioxide Level 17 mmol/L (21-32) Anion Gap 15 (6-14) Blood Urea Nitrogen 35 mg/dL (7-20) Creatinine 2.3 mg/dL (0.6-1.0) Estimated GFR (Cockcroft-Gault) 20.7 Glucose Level 461 mg/dL (70-99) Calcium Level 7.6 mg/dL (8.5-10.1) Creatine Kinase 484 U/L (26-192) Test 05/15/20 12:31 05/15/20 13:32 05/15/20 14:37 05/15/20 15:30 Glucose (Fingerstick) 478 mg/dL (70-99) 441 mg/dL (70-99) 419 mg/dL (70-99) 305 mg/dL (70-99) Test 05/15/20 16:48 05/15/20 17:56 05/15/20 19:03 05/15/20 20:04 Glucose (Fingerstick) 301 mg/dL (70-99) 270 mg/dL (70-99) 227 mg/dL (70-99) 168 mg/dL (70-99) Test 05/15/20 21:14 05/15/20 22:09 05/15/20 23:01 05/16/20 00:08 Glucose (Fingerstick) 177 mg/dL (70-99) 129 mg/dL (70-99) 152 mg/dL (70-99) 157 mg/dL (70-99) Test 05/16/20 01:06 05/16/20 02:10 05/16/20 03:14 05/16/20 04:22 Glucose (Fingerstick) 98 mg/dL (70-99) 97 mg/dL (70-99) 100 mg/dL (70-99) 111 mg/dL (70-99) Test 05/16/20 05:45 White Blood Count 23.9 x10^3/uL (4.0-11.0) Red Blood Count 3.60 x10^6/uL (3.50-5.40) Hemoglobin 10.1 g/dL (12.0-15.5) Hematocrit 31.9 % (36.0-47.0) Mean Corpuscular Volume 89 fL (79-100) Mean Corpuscular Hemoglobin 28 pg (25-35) Mean Corpuscular Hemoglobin Concent 32 g/dL (31-37) Red Cell Distribution Width 16.7 % (11.5-14.5) Platelet Count 277 x10^3/uL (140-400) Neutrophils (%) (Auto) 89 % (31-73) Lymphocytes (%) (Auto) 9 % (24-48) Monocytes (%) (Auto) 2 % (0-9) Eosinophils (%) (Auto) 0 % (0-3) Basophils (%) (Auto) 0 % (0-3) Neutrophils # (Auto) 21.2 x10^3/uL (1.8-7.7) Lymphocytes # (Auto) 2.1 x10^3/uL (1.0-4.8) Monocytes # (Auto) 0.5 x10^3/uL (0.0-1.1) Eosinophils # (Auto) 0.0 x10^3/uL (0.0-0.7) Basophils # (Auto) 0.0 x10^3/uL (0.0-0.2) Heparin Anti-Xa Act, Unfractionated 0.17 IU/mL (0.30-0.70) Sodium Level 127 mmol/L (136-145) Potassium Level 3.4 mmol/L (3.5-5.1) Chloride Level 91 mmol/L (98-107) Carbon Dioxide Level 23 mmol/L (21-32) Anion Gap 13 (6-14) Blood Urea Nitrogen 32 mg/dL (7-20) Creatinine 1.5 mg/dL (0.6-1.0) Estimated GFR (Cockcroft-Gault) 33.9 BUN/Creatinine Ratio 21 (6-20) Glucose Level 100 mg/dL (70-99) Calcium Level 7.5 mg/dL (8.5-10.1) Phosphorus Level 4.2 mg/dL (2.6-4.7) Magnesium Level 2.5 mg/dL (1.8-2.4) Total Bilirubin 0.4 mg/dL (0.2-1.0) Aspartate Amino Transf (AST/SGOT) 89 U/L (15-37) Alanine Aminotransferase (ALT/SGPT) 34 U/L (14-59) Alkaline Phosphatase 204 U/L (46-116) Total Protein 5.6 g/dL (6.4-8.2) Albumin 1.8 g/dL (3.4-5.0) Albumin/Globulin Ratio 0.5 (1.0-1.7) Results All relevant outside records, renal labs, imaging studies, telemetry/EKG's were reviewed. Justicifation of Admission Dx: Justifications for Admission: Justification of Admission Dx: N/A BENI MIRELES MD May 16, 2020 08:31
[2020-05-16] MEDS: POTASSIUM CHLORIDE 20MEQ 100 ML IV SCH ×2 (08:58→10:28)
[2020-05-16] MEDS: ASPIRIN ENTERIC COATED 81 MG TABLET.DR. PO SCH (10:00)
[2020-05-16] MEDS: METOPROLOL SUCC 24HR ER 25 MG TAB.ER.24H. PO SCH (10:15)
[2020-05-16] MEDS: PRASUGREL 10 MG TABLET. PO SCH (10:15)
[2020-05-16] MEDS: ASCORBIC ACID 500 MG TABLET PO SCH ×2 (10:15→21:28)
[2020-05-16] MEDS: LORazepam 0.5 MG TABLET PO PRN ×2 (10:28→19:47)
[2020-05-16] MEDS: buPROPion XL 150 MG TAB.ER.24H. PO SCH ×2 (10:28→21:28)
[2020-05-16] MEDS: ARIPiprazole 2 MG TABLET PO SCH (10:28)
--- NOTE | 2020-05-16 10:51 | NUR ---
Held Effient per Dr. Ferraro who said continue heparin gtt in case a decision is made to do a cardiac cath.
[2020-05-16] MEDS ORDERED: VANCOMYCIN RANDOM LEVEL. MC ONE (11:06)
[2020-05-16] MEDS: ANTI-COAG MONITOR BY PHARMACY. MC PRN (11:12)
[2020-05-16 11:38] LABS: BILIRUBIN,URINE NEGATIVE (NEG); CLARITY,URINE CLEAR; COLOR,URINE YELLOW; NITRITE,URINE NEGATIVE (NEG); PROTEIN,URINE 100 mg/dL (NEG-TRACE); UROBILINOGEN,URINE 0.2 mg/dL (0.2 mg/dL)
--- NOTE | 2020-05-16 11:38 | RAD ---
INDICATION: Reason: resp fail / Spl. Instructions: / History: COMPARISON: One day prior FINDINGS: Single view of chest obtained. Enlarged cardiomediastinal silhouette. Right-sided vascular catheter with tip near atriocaval junctio n. Patchy opacities at left greater than right lung base. Air-filled distention of the stomach bubble . Blunting of the costophrenic angles. Mild interstitial opacities IMPRESSION: * There is some patchy opacities at the left greater than right lower lung which could be from atele ctasis or infiltrate. There is also some mild interstitial opacities which could be from mild edema o r interstitial infiltrate. * Mild blunting of the costophrenic angles. Could be from consolidation or small effusion. * Enlarged cardiomediastinal silhouette. * Repeat demonstration of enlargement of the air-filled stomach bubble. Electronically signed by: Slick Young MD (05/16/2020 11:35 AM) [id number]
[2020-05-16 11:49] LABS: BACTERIA,URINE 0 /HPF (0-FEW); WBC,URINE OCC /HPF (0-4)
[2020-05-16 11:50] LABS: YEAST,URINE PRESENT /HPF
--- NOTE | 2020-05-16 12:04 | CONS ---
DATE OF CONSULTATION: 05/16/2020 REASON FOR CONSULTATION: I was asked to see this 74-year-old lady for acute respiratory failure, shock. HISTORY OF PRESENT ILLNESS: She has a history of [id number] smoking, quit smoking about 30 years ago. She has COPD. She has sleep apnea, does not use CPAP at home. She had chest pain, presented to the Emergency Room yesterday, but was found to have elevated troponin of 45. She is currently on oxygen 3 liters per minute. She appears tachypneic. She does have shortness of breath. She has occasional cough. Denies fever and chills. Her chest pain has improved. Yesterday, she was on vasopressin, Levophed and dopamine. Currently, she is on vasopressin. PAST MEDICAL HISTORY: COPD, obstructive sleep apnea-hypopnea syndrome not treated, coronary artery disease, hypertension, hyperlipidemia, chronic kidney disease. ALLERGIES: GRAPEFRUIT, HYDROMORPHONE, METOCLOPRAMIDE, MORPHINE, PHENYTOIN, TEMAZEPAM, TRAZODONE, ZOLPIDEM. MEDICATIONS: Currently, she is on vasopressin and Levophed. Carbamazepine, Lipitor, DuoNeb SVNs, Abilify, Toprol-XL, vitamin C, heparin drip, Wellbutrin, Ativan, Ecotrin, Pulmicort, Solu-Cortef 100 every 8, Zosyn, vancomycin. SOCIAL HISTORY: History of [id number] smoking, stopped smoking 30 years ago. FAMILY HISTORY: Coronary artery disease. REVIEW OF SYSTEMS: As mentioned as above, other systems otherwise negative. PHYSICAL EXAMINATION: GENERAL: This is an obese lady. VITAL SIGNS: Her O2 saturation on 3 liters of oxygen via Ventimask is 92%, respiratory rate 28, heart rate 100, blood pressure 95/58, temperature 98.6. HEENT: Normocephalic, atraumatic. Pupils equal, round, reactive to light. Nose is clear. Throat: There is shallow oropharynx. NECK: Short and thick. There is no lymphadenopathy or thyromegaly. CARDIOVASCULAR: Regular rate and rhythm. PMI is nondisplaced. CHEST: On inspection, she appears tachypneic. LUNGS: There are bibasilar crackles, dullness at the bases. Diminished breath sounds. ABDOMEN: Obese and soft. She has hernia. EXTREMITIES: There is no edema. LYMPHATICS: There is no lymphadenopathy. NEUROLOGIC: Alert and oriented. SKIN: Chronic changes. LABORATORY DATA: I reviewed the following lab data: CT of the chest did not show pulmonary embolism, showed bibasilar atelectasis. CT of abdomen showed large amount of stool, ventral hernia with no obstruction. Sodium 127, potassium 3.4, chloride 91, CO2 of 23, BUN 32, creatinine 1.5, glucose 100, troponin as mentioned as above. BNP 368. Lactic acid 2.9 on admission, 5.3 on 05/14/2020 at 11:00 p.m. COVID-19 is negative. D-dimer more than 20. WBC 22.9, hemoglobin 10.1, platelet 277. IMPRESSION: 1. Acute hypoxemic respiratory failure, multifactorial in etiology including shock, myocardial infarction, chronic obstructive pulmonary disease with acute exacerbation, no pulmonary embolism. 2. Abnormal CT of the chest. 3. Elevated troponin, non-ST elevation myocardial infarction. 4. Shock cardiac versus septic. 5. Acute kidney injury. 6. Chronic kidney disease. 7. Chest pain. 8. Chronic obstructive pulmonary disease with acute exacerbation. 9. Obesity, obstructive sleep apnea-hypopnea syndrome. PLAN AND RECOMMENDATIONS: 1. Titrate FiO2 to keep O2 saturation 92%. 2. Start BiPAP now. We will monitor her respiratory status very closely. She may require intubation. 3. Continue Solu-Cortef. 4. Continue antibiotic. 5. Follow up cultures. 6. Cardiology is on the case. 7. Nephrology is on the case. 8. Continue bronchodilator. 9. Inhaled corticosteroid. 10. Start Protonix for stress ulcer prophylaxis. 11. The findings and recommendations were discussed with the patient and RN. Thank you very much for allowing me to participate in care of this very nice lady. The patient is critically ill. The critical care time is 30 minutes without overlap. SANTOSH PAUL M.D. : KEN/sarmad JOB#: [id number] / [id number]
[2020-05-16] MEDS: VANCOMYCIN PER PHARMACY MC PRN (12:15)
--- NOTE | 2020-05-16 12:19 | NUR ---
Pharmacy Vancomycin Dosing Note S:Consulted to monitor and dose vancomycin started 05/15/20. O:ALDA CORRAL is a 74 year old F with Sepsis . Height: 4 feet, 9 inches Weight: 81.9 kg [place] Body Weight: 38.60 Adjusted Body Weight: 55.92 Dosing Weight: Actual Other Antibiotics: ZOSYN LABS: Last BUN: 32 Last Creatinine: 1.5 Creatinine Clearance: 30 mL/min Last WBC: 23.9 Last Procalcitonin: Tmax (past 24 hours): 100.1 Microbiology: 05/15 BCX ORDERED I/O: Drug Levels: Last Random level: 16.3 on 05/16/20 at 0545 Last dose given 05/15/20 at 0230 Vancomycin Dosing: Loading Dose: x1 Dosing Weight: Actual Target Trough: 15-20 A: Based on: IMPROVED RENAL FUNCTION, P: 1. INITIATE Vancomycin 1250 mg IV q24h 2. Follow up Trough level on 05/18/20 at 1330 3. Pharmacy will continue to monitor, follow and adjust therapy as needed. JUAN PABLO MCLAIN [facility], 05/16/20 2026
[2020-05-16] MEDS: SODIUM PHOSPHATES 19/7GM 133 ML ENEMA. PR PRN (13:24)
[2020-05-16 13:37] LABS: CREATININE,RANDOM URINE 40.7 mg/dL (Not Establ.)
--- NOTE | 2020-05-16 13:40 | PDOC ---
PROGRESS NOTES Date of Service DATE: 05/16/20 TIME: 13:36 Subjective Subjective Patient seen and examined Objective Objective Vital Signs Date Time Temp Pulse Resp B/P (MAP) Pulse Ox O2 Delivery O2 Flow Rate FiO2 05/16/20 13:00 102 26 90/56 (67) 92 BiPAP/CPAP 05/16/20 12:15 3.0 05/16/20 12:00 98.4 98.4 Intake and Output 05/16/20 07:00 Intake Total 6218.05 ml Output Total 1815 ml Balance 4403.05 ml Intake Oral 500 ml IV Total 5718.05 ml Output Urine Total 1815 ml # Bowel Movements 1 Physical Exam Abdomen: Normal bowel sounds Heart: Regular rate General: mild distress Lungs: Other (Decreased breath sounds) Assessment Assessment 1. Chest pain now resolved. Looking and feeling better today. History of severe coronary artery disease. Interventions as above. Abnormal EKG but the patient's baseline EKG is also quite abnormal. The patient reports no chest pain overnight. Previous echo show intact LV function. 7 hours post admission the patient's troponin had elevated to 1.19. However the following morning her troponin elevated to 45 and then declined to 33. The patient remains chest pain-free. Her blood pressure is also improved today. At this time we will continue medical treatment. We will repeat her echo. 2. Abdominal pain. Patient's abdominal pain has improved. Her white count has improved. CT scan results as above. Continue on present treatment. 3. Severe hypotension. Continued improvement. We will continue present treatment. 4. Chronic renal insufficiency. Initial creatinine of 2.2. Seen by the renal service. We will continue to monitor. 5. Hyperlipidemia. LDL of 25. 6. Increasing shortness of breath. Improved today. Pulmonary and renal f ollowing. Comment Review of Relevant I have reviewed the following items danisha (where applicable) has been applied. Labs Laboratory Tests Test 05/14/20 18:07 05/14/20 18:14 05/14/20 18:15 05/14/20 19:05 Coronavirus (PCR) Not detected (Not Detected) White Blood Count 29.1 x10^3/uL (4.0-11.0) Red Blood Count 4.29 x10^6/uL (3.50-5.40) Hemoglobin 12.4 g/dL (12.0-15.5) Hematocrit 40.5 % (36.0-47.0) Mean Corpuscular Volume 94 fL (79-100) Mean Corpuscular Hemoglobin 29 pg (25-35) Mean Corpuscular Hemoglobin Concent 31 g/dL (31-37) Red Cell Distribution Width 17.0 % (11.5-14.5) Platelet Count 322 x10^3/uL (140-400) Neutrophils (%) (Auto) 70 % (31-73) Lymphocytes (%) (Auto) 22 % (24-48) Monocytes (%) (Auto) 5 % (0-9) Eosinophils (%) (Auto) 2 % (0-3) Basophils (%) (Auto) 1 % (0-3) Neutrophils # (Auto) 20.2 x10^3/uL (1.8-7.7) Lymphocytes # (Auto) 6.5 x10^3/uL (1.0-4.8) Monocytes # (Auto) 1.5 x10^3/uL (0.0-1.1) Eosinophils # (Auto) 0.7 x10^3/uL (0.0-0.7) Basophils # (Auto) 0.2 x10^3/uL (0.0-0.2) Segmented Neutrophils % 50 % (35-66) Band Neutrophils % 3 % (0-9) Lymphocytes % 33 % (24-48) Monocytes % 8 % (0-10) Eosinophils % 5 % (0-5) Metamyelocytes % 1 % (0-0) Toxic Granulation Platelet Estimate Adequate (ADEQUATE) Platelet Clumps, EDTA Present Large Platelets Present Polychromasia Present Poikilocytosis Mod Anisocytosis Slight Microcytosis Slight Helmet Cells Occ Crenated Cell Present Acanthocytes Occ RBC Morphology Bizarre Forms Prothrombin Time 15.7 SEC (11.7-14.0) Prothromb Time International Ratio 1.3 (0.8-1.1) D-Dimer (Kaila) > 20.00 ug/mlFEU Sodium Level 135 mmol/L (136-145) Potassium Level 4.5 mmol/L (3.5-5.1) Chloride Level 101 mmol/L (98-107) Carbon Dioxide Level 15 mmol/L (21-32) Anion Gap 19 (6-14) Blood Urea Nitrogen 33 mg/dL (7-20) Creatinine 2.2 mg/dL (0.6-1.0) Estimated GFR (Cockcroft-Gault) 21.8 Glucose Level 402 mg/dL (70-99) Calcium Level 10.0 mg/dL (8.5-10.1) Magnesium Level 2.8 mg/dL (1.8-2.4) Total Bilirubin 0.6 mg/dL (0.2-1.0) Direct Bilirubin 0.1 mg/dL (0.0-0.2) Aspartate Amino Transf (AST/SGOT) 28 U/L (15-37) Alanine Aminotransferase (ALT/SGPT) 28 U/L (14-59) Alkaline Phosphatase 228 U/L (46-116) Troponin I Quantitative < 0.017 ng/mL (0.000-0.055) FA-Icg-B-Type Natriuretic Peptide 368 pg/mL (0-124) Total Protein 7.8 g/dL (6.4-8.2) Albumin 3.3 g/dL (3.4-5.0) Lipase 265 U/L (73-393) O2 Saturation 91 % (92-99) Arterial Blood pH 7.15 (7.35-7.45) Arterial Blood pCO2 at Patient Temp 34 mmHg (35-46) Arterial Blood pO2 at Patient Temp 73 mmHg (65-108) Arterial Blood HCO3 12 mmol/L (21-28) Arterial Blood Base Excess -16 mmol/L (-3-3) Oxyhemoglobin 90.6 % Methemoglobin 0.1 % (0.0-1.9) Carbon Monoxide, Quantitative 0.3 % (0.0-1.9) FiO2 100 SARS-CoV-2 Antigen (Rapid) Negative (NEGATIVE) Test 05/14/20 19:20 05/14/20 20:20 05/14/20 21:35 05/14/20 23:15 Lactic Acid Level 2.9 mmol/L (0.4-2.0) 5.8 mmol/L (0.4-2.0) Urine Collection Type U cath Urine Color Yellow Urine Clarity Clear Urine pH 5.5 (<5.0-8.0) Urine Specific Perkins >=1.030 (1.000-1.030) Urine Protein 100 mg/dL (NEG-TRACE) Urine Glucose (UA) >=1000 mg/dL (NEG) Urine Ketones (Stick) Negative mg/dL (NEG) Urine Blood Negative (NEG) Urine Nitrite Negative (NEG) Urine Bilirubin Small (NEG) Urine Urobilinogen Dipstick 0.2 mg/dL (0.2 mg/dL) Urine Leukocyte Esterase Negative (NEG) Urine RBC Occ /HPF (0-2) Urine WBC 1-4 /HPF (0-4) Urine Squamous Epithelial Cells Few /LPF Urine Amorphous Sediment Present /HPF Urine Bacteria Few /HPF (0-FEW) Urine Hyaline Casts Occasional /HPF Troponin I Quantitative 0.211 ng/mL (0.000-0.055) Test 05/15/20 00:15 05/15/20 06:35 05/15/20 07:40 05/15/20 10:10 Troponin I Quantitative 1.190 ng/mL (0.000-0.055) 45.060 ng/mL (0.000-0.055) 33.869 ng/mL (0.000-0.055) Sodium Level 127 mmol/L (136-145) 127 mmol/L (136-145) Potassium Level 4.9 mmol/L (3.5-5.1) 5.5 mmol/L (3.5-5.1) Chloride Level 94 mmol/L (98-107) 93 mmol/L (98-107) Carbon Dioxide Level 14 mmol/L (21-32) 15 mmol/L (21-32) Anion Gap 19 (6-14) 19 (6-14) Blood Urea Nitrogen 35 mg/dL (7-20) 35 mg/dL (7-20) Creatinine 2.5 mg/dL (0.6-1.0) 2.4 mg/dL (0.6-1.0) Estimated GFR (Cockcroft-Gault) 18.8 19.7 Glucose Level 719 mg/dL (70-99) 691 mg/dL (70-99) Calcium Level 8.0 mg/dL (8.5-10.1) 8.0 mg/dL (8.5-10.1) White Blood Count 21.0 x10^3/uL (4.0-11.0) Red Blood Count 3.82 x10^6/uL (3.50-5.40) Hemoglobin 11.1 g/dL (12.0-15.5) Hematocrit 36.8 % (36.0-47.0) Mean Corpuscular Volume 96 fL (79-100) Mean Corpuscular Hemoglobin 29 pg (25-35) Mean Corpuscular Hemoglobin Concent 30 g/dL (31-37) Red Cell Distribution Width 17.2 % (11.5-14.5) Platelet Count 334 x10^3/uL (140-400) Neutrophils (%) (Auto) 90 % (31-73) Lymphocytes (%) (Auto) 8 % (24-48) Monocytes (%) (Auto) 2 % (0-9) Eosinophils (%) (Auto) 0 % (0-3) Basophils (%) (Auto) 0 % (0-3) Neutrophils # (Auto) 19.0 x10^3/uL (1.8-7.7) Lymphocytes # (Auto) 1.6 x10^3/uL (1.0-4.8) Monocytes # (Auto) 0.4 x10^3/uL (0.0-1.1) Eosinophils # (Auto) 0.0 x10^3/uL (0.0-0.7) Basophils # (Auto) 0.0 x10^3/uL (0.0-0.2) Heparin Anti-Xa Act, Unfractionated 0.41 IU/mL (0.30-0.70) Triglycerides Level 233 mg/dL (0-150) Cholesterol Level 88 mg/dL (0-200) LDL Cholesterol, Calculated 25 mg/dL (0-100) VLDL Cholesterol, Calculated 47 mg/dL (0-40) Non-HDL Cholesterol Calculated 72 mg/dL (0-129) HDL Cholesterol 16 mg/dL (40-60) Cholesterol/HDL Ratio 5.5 Test 05/15/20 10:14 05/15/20 11:24 05/15/20 12:09 05/15/20 12:31 Glucose (Fingerstick) 532 mg/dL (70-99) 499 mg/dL (70-99) 478 mg/dL (70-99) Heparin Anti-Xa Act, Unfractionated 0.44 IU/mL (0.30-0.70) Sodium Level 127 mmol/L (136-145) Potassium Level 3.8 mmol/L (3.5-5.1) Chloride Level 95 mmol/L (98-107) Carbon Dioxide Level 17 mmol/L (21-32) Anion Gap 15 (6-14) Blood Urea Nitrogen 35 mg/dL (7-20) Creatinine 2.3 mg/dL (0.6-1.0) Estimated GFR (Cockcroft-Gault) 20.7 Glucose Level 461 mg/dL (70-99) Calcium Level 7.6 mg/dL (8.5-10.1) Creatine Kinase 484 U/L (26-192) Test 05/15/20 13:32 05/15/20 14:37 05/15/20 15:30 05/15/20 16:48 Glucose (Fingerstick) 441 mg/dL (70-99) 419 mg/dL (70-99) 305 mg/dL (70-99) 301 mg/dL (70-99) Test 05/15/20 17:56 05/15/20 19:03 05/15/20 20:04 05/15/20 21:14 Glucose (Fingerstick) 270 mg/dL (70-99) 227 mg/dL (70-99) 168 mg/dL (70-99) 177 mg/dL (70-99) Test 05/15/20 22:09 05/15/20 23:01 05/16/20 00:08 05/16/20 01:06 Glucose (Fingerstick) 129 mg/dL (70-99) 152 mg/dL (70-99) 157 mg/dL (70-99) 98 mg/dL (70-99) Test 05/16/20 02:10 05/16/20 03:14 05/16/20 04:22 05/16/20 05:45 Glucose (Fingerstick) 97 mg/dL (70-99) 100 mg/dL (70-99) 111 mg/dL (70-99) White Blood Count 23.9 x10^3/uL (4.0-11.0) Red Blood Count 3.60 x10^6/uL (3.50-5.40) Hemoglobin 10.1 g/dL (12.0-15.5) Hematocrit 31.9 % (36.0-47.0) Mean Corpuscular Volume 89 fL (79-100) Mean Corpuscular Hemoglobin 28 pg (25-35) Mean Corpuscular Hemoglobin Concent 32 g/dL (31-37) Red Cell Distribution Width 16.7 % (11.5-14.5) Platelet Count 277 x10^3/uL (140-400) Neutrophils (%) (Auto) 89 % (31-73) Lymphocytes (%) (Auto) 9 % (24-48) Monocytes (%) (Auto) 2 % (0-9) Eosinophils (%) (Auto) 0 % (0-3) Basophils (%) (Auto) 0 % (0-3) Neutrophils # (Auto) 21.2 x10^3/uL (1.8-7.7) Lymphocytes # (Auto) 2.1 x10^3/uL (1.0-4.8) Monocytes # (Auto) 0.5 x10^3/uL (0.0-1.1) Eosinophils # (Auto) 0.0 x10^3/uL (0.0-0.7) Basophils # (Auto) 0.0 x10^3/uL (0.0-0.2) Heparin Anti-Xa Act, Unfractionated 0.17 IU/mL (0.30-0.70) Sodium Level 127 mmol/L (136-145) Potassium Level 3.4 mmol/L (3.5-5.1) Chloride Level 91 mmol/L (98-107) Carbon Dioxide Level 23 mmol/L (21-32) Anion Gap 13 (6-14) Blood Urea Nitrogen 32 mg/dL (7-20) Creatinine 1.5 mg/dL (0.6-1.0) Estimated GFR (Cockcroft-Gault) 33.9 BUN/Creatinine Ratio 21 (6-20) Glucose Level 100 mg/dL (70-99) Calcium Level 7.5 mg/dL (8.5-10.1) Phosphorus Level 4.2 mg/dL (2.6-4.7) Magnesium Level 2.5 mg/dL (1.8-2.4) Total Bilirubin 0.4 mg/dL (0.2-1.0) Aspartate Amino Transf (AST/SGOT) 89 U/L (15-37) Alanine Aminotransferase (ALT/SGPT) 34 U/L (14-59) Alkaline Phosphatase 204 U/L (46-116) Total Protein 5.6 g/dL (6.4-8.2) Albumin 1.8 g/dL (3.4-5.0) Albumin/Globulin Ratio 0.5 (1.0-1.7) Random Vancomycin Level 16.3 mcg/mL Test 05/16/20 11:10 Urine Collection Type Unknown Urine Color Yellow Urine Clarity Clear Urine pH 8.0 (<5.0-8.0) Urine Specific Perkins 1.020 (1.000-1.030) Urine Protein 100 mg/dL (NEG-TRACE) Urine Glucose (UA) 500 mg/dL (NEG) Urine Ketones (Stick) Negative mg/dL (NEG) Urine Blood Moderate (NEG) Urine Nitrite Negative (NEG) Urine Bilirubin Negative (NEG) Urine Urobilinogen Dipstick 0.2 mg/dL (0.2 mg/dL) Urine Leukocyte Esterase Negative (NEG) Urine RBC 1-2 /HPF (0-2) Urine WBC Occ /HPF (0-4) Urine Bacteria 0 /HPF (0-FEW) Urine Yeast Present /HPF Laboratory Tests Test 05/15/20 14:37 05/15/20 15:30 05/15/20 16:48 05/15/20 17:56 Glucose (Fingerstick) 419 mg/dL (70-99) 305 mg/dL (70-99) 301 mg/dL (70-99) 270 mg/dL (70-99) Test 05/15/20 19:03 05/15/20 20:04 05/15/20 21:14 05/15/20 22:09 Glucose (Fingerstick) 227 mg/dL (70-99) 168 mg/dL (70-99) 177 mg/dL (70-99) 129 mg/dL (70-99) Test 05/15/20 23:01 05/16/20 00:08 05/16/20 01:06 05/16/20 02:10 Glucose (Fingerstick) 152 mg/dL (70-99) 157 mg/dL (70-99) 98 mg/dL (70-99) 97 mg/dL (70-99) Test 05/16/20 03:14 05/16/20 04:22 05/16/20 05:45 05/16/20 11:10 Glucose (Fingerstick) 100 mg/dL (70-99) 111 mg/dL (70-99) White Blood Count 23.9 x10^3/uL (4.0-11.0) Red Blood Count 3.60 x10^6/uL (3.50-5.40) Hemoglobin 10.1 g/dL (12.0-15.5) Hematocrit 31.9 % (36.0-47.0) Mean Corpuscular Volume 89 fL (79-100) Mean Corpuscular Hemoglobin 28 pg (25-35) Mean Corpuscular Hemoglobin Concent 32 g/dL (31-37) Red Cell Distribution Width 16.7 % (11.5-14.5) Platelet Count 277 x10^3/uL (140-400) Neutrophils (%) (Auto) 89 % (31-73) Lymphocytes (%) (Auto) 9 % (24-48) Monocytes (%) (Auto) 2 % (0-9) Eosinophils (%) (Auto) 0 % (0-3) Basophils (%) (Auto) 0 % (0-3) Neutrophils # (Auto) 21.2 x10^3/uL (1.8-7.7) Lymphocytes # (Auto) 2.1 x10^3/uL (1.0-4.8) Monocytes # (Auto) 0.5 x10^3/uL (0.0-1.1) Eosinophils # (Auto) 0.0 x10^3/uL (0.0-0.7) Basophils # (Auto) 0.0 x10^3/uL (0.0-0.2) Heparin Anti-Xa Act, Unfractionated 0.17 IU/mL (0.30-0.70) Sodium Level 127 mmol/L (136-145) Potassium Level 3.4 mmol/L (3.5-5.1) Chloride Level 91 mmol/L (98-107) Carbon Dioxide Level 23 mmol/L (21-32) Anion Gap 13 (6-14) Blood Urea Nitrogen 32 mg/dL (7-20) Creatinine 1.5 mg/dL (0.6-1.0) Estimated GFR (Cockcroft-Gault) 33.9 BUN/Creatinine Ratio 21 (6-20) Glucose Level 100 mg/dL (70-99) Calcium Level 7.5 mg/dL (8.5-10.1) Phosphorus Level 4.2 mg/dL (2.6-4.7) Magnesium Level 2.5 mg/dL (1.8-2.4) Total Bilirubin 0.4 mg/dL (0.2-1.0) Aspartate Amino Transf (AST/SGOT) 89 U/L (15-37) Alanine Aminotransferase (ALT/SGPT) 34 U/L (14-59) Alkaline Phosphatase 204 U/L (46-116) Total Protein 5.6 g/dL (6.4-8.2) Albumin 1.8 g/dL (3.4-5.0) Albumin/Globulin Ratio 0.5 (1.0-1.7) Random Vancomycin Level 16.3 mcg/mL Urine Collection Type Unknown Urine Color Yellow Urine Clarity Clear Urine pH 8.0 (<5.0-8.0) Urine Specific Perkins 1.020 (1.000-1.030) Urine Protein 100 mg/dL (NEG-TRACE) Urine Glucose (UA) 500 mg/dL (NEG) Urine Ketones (Stick) Negative mg/dL (NEG) Urine Blood Moderate (NEG) Urine Nitrite Negative (NEG) Urine Bilirubin Negative (NEG) Urine Urobilinogen Dipstick 0.2 mg/dL (0.2 mg/dL) Urine Leukocyte Esterase Negative (NEG) Urine RBC 1-2 /HPF (0-2) Urine WBC Occ /HPF (0-4) Urine Bacteria 0 /HPF (0-FEW) Urine Yeast Present /HPF Medications Current Medications Iodixanol (Visipaque 320) 100 ml STK-MED ONCE .ROUTE ; Start 05/14/20 at 18:14; Stop 05/14/20 at 18:15; Status DC Lidocaine HCl (Lidocaine 1% 20ml Vial) 20 ml STK-MED ONCE .ROUTE ; Start 05/14/20 at 18:14; Stop 05/14/20 at 18:15; Status DC Heparin Sodium/ Sodium Chloride 500 ml @ As Directed STK-MED ONCE .ROUTE ; Start 05/14/20 at 18:15; Stop 05/14/20 at 18:15; Status DC Fentanyl Citrate (Fentanyl 2ml Vial) 100 mcg STK-MED ONCE .ROUTE ; Start 05/14/20 at 18:15; Stop 05/14/20 at 18:16; Status DC Midazolam HCl (Versed) 2 mg STK-MED ONCE .ROUTE ; Start 05/14/20 at 18:16; Stop 05/14/20 at 18:16; Status DC Dopamine HCl/ Dextrose 250 ml @ As Directed STK-MED ONCE IV ; Start 05/14/20 at 18:17; Stop 05/14/20 at 18:18; Status DC Sodium Chloride 1,000 ml @ 1,000 mls/hr Q1H IV Last administered on 05/14/20at 18:14; Start 05/14/20 at 18:15; Stop 05/14/20 at 19:14; Status DC Heparin Sodium/ Sodium Chloride 500 ml @ As Directed STK-MED ONCE .ROUTE ; Start 05/14/20 at 18:19; Stop 05/14/20 at 18:19; Status DC Dopamine HCl/ Dextrose 250 ml @ 13.538 mls/ hr 1X ONCE IV Last administered on 05/14/20at 18:19; Start 05/14/20 at 18:30; Stop 05/15/20 at 03:03; Status DC Aspirin (Aspirin Chewable) 162 mg 1X ONCE PO ; Start 05/14/20 at 18:30; Stop 05/14/20 at 18:31; Status DC Aspirin (Aspirin Chewable) 81 mg DAILYWBKFT PO Last administered on 05/16/20at 07:31; Start 05/15/20 at 08:00 Norepinephrine Bitartrate 8 mg/ Dextrose 258 ml @ 13.971 mls/ hr 1X ONCE IV Last administered on 05/14/20at 18:50; Start 05/14/20 at 19:00; Stop 05/15/20 at 13:28; Status DC Sodium Bicarbonate 150 meq/Sterile Water 1,150 ml @ 125 mls/hr 1X ONCE IV Last administered on 05/14/20at 19:25; Start 05/14/20 at 19:30; Stop 05/15/20 at 04:41; Status DC Sodium Chloride 1,000 ml @ 1,000 mls/hr 1X ONCE IV Last administered on 05/14/20at 19:27; Start 05/14/20 at 19:15; Stop 05/14/20 at 20:14; Status DC Piperacillin Sod/ Tazobactam Sod 3.375 gm/Sodium Chloride 50 ml @ 100 mls/hr 1X ONCE IV ; Start 05/14/20 at 19:15; Stop 05/14/20 at 19:44; Status UNV Vancomycin HCl 1.25 gm/Sodium Chloride 250 ml @ 166.667 mls/hr 1X ONCE IV Last administered on 05/14/20at 20:24; Start 05/14/20 at 19:15; Stop 05/14/20 at 20:44; Status DC Piperacillin Sod/ Tazobactam Sod 2.25 gm/Sodium Chloride 50 ml @ 100 mls/hr 1X ONCE IV Last administered on 05/14/20at 19:58; Start 05/14/20 at 19:15; Stop 05/14/20 at 19:44; Status DC Iohexol (Omnipaque 350 Mg/ml) 100 ml 1X ONCE IV Last administered on 05/14/20at 20:03; Start 05/14/20 at 20:00; Stop 05/14/20 at 20:01; Status DC Info (CONTRAST GIVEN -- Rx MONITORING) 1 each PRN DAILY PRN MC SEE COMMENTS; Start 05/14/20 at 20:15; Stop 05/16/20 at 20:14 Vasopressin 20 unit/Dextrose 101 ml @ 11.882 mls/ hr 1X ONCE IV Last administered on 05/14/20at 20:36; Start 05/14/20 at 20:15; Stop 05/15/20 at 04:45; Status DC Ondansetron HCl (Zofran) 4 mg PRN Q8HRS PRN IV NAUSEA/VOMITING Last administered on 05/15/20at 19:59; Start 05/14/20 at 22:00; Stop 05/15/20 at 21:59; Status DC Heparin Sodium (Porcine) (Heparin Sodium) 4,000 unit 1X ONCE IV Last administered on 05/14/20at 23:09; Start 05/14/20 at 22:15; Stop 05/14/20 at 22:16; Status DC Heparin Sodium/ Dextrose 250 ml @ 0 mls/hr CONT PRN IV PER PROTOCOL Last administered on 05/15/20at 22:01; Start 05/14/20 at 22:15 Heparin Sodium (Porcine) (Heparin Sodium) 1,800 unit PRN Q6HRS PRN IV FOR UFH LEVEL LESS THAN 0.2 Last administered on 05/16/20at 07:31; Start 05/14/20 at 22:15 Norepinephrine Bitartrate 8 mg/ Dextrose 258 ml @ 13.971 mls/ hr 1X ONCE IV Last administered on 05/15/20at 04:25; Start 05/14/20 at 22:15; Stop 05/15/20 at 07:03; Status DC Acetaminophen (Tylenol) 1,000 mg 1X ONCE PO Last administered on 05/14/20at 23:04; Start 05/14/20 at 22:30; Stop 05/14/20 at 22:39; Status DC Dopamine HCl/ Dextrose 250 ml @ 13.538 mls/ hr CONT PRN IV SEE I/O RECORD Last administered on 05/15/20at 20:57; Start 05/14/20 at 23:00 Vasopressin 20 unit/Dextrose 101 ml @ 12 mls/hr CONT PRN IV SEE I/O RECORD Last administered on 05/16/20at 07:32; Start 05/14/20 at 23:00 Norepinephrine Bitartrate 8 mg/ Dextrose 258 ml @ 13.971 mls/ hr CONT PRN IV PER PROTOCOL Last administered on 05/15/20at 11:02; Start 05/14/20 at 23:00; Stop 05/15/20 at 14:59; Status DC Hydrocortisone Sodium Succinate (Solu-CORTEF) 100 mg Q12HR IVP Last administered on 05/15/20at 11:33; Start 05/15/20 at 09:00; Stop 05/15/20 at 14:32; Status DC Vancomycin HCl 1.25 gm/Sodium Chloride 250 ml @ 166.667 mls/hr 1X ONCE IV Last administered on 05/15/20at 02:34; Start 05/15/20 at 01:00; Stop 05/15/20 at 02:29; Status DC Piperacillin Sod/ Tazobactam Sod 2.25 gm/Sodium Chloride 50 ml @ 100 mls/hr 1X ONCE IV Last administered on 05/15/20at 01:02; Start 05/15/20 at 01:00; Stop 05/15/20 at 01:29; Status DC Sodium Chloride 1,000 ml @ 100 mls/hr 1X ONCE IV Last administered on 05/15/20at 01:02; Start 05/15/20 at 01:00; Stop 05/15/20 at 10:59; Status DC Acetaminophen/ Aspirin/Caffeine (Excedrin Migraine) 1 tab PRN Q6HRS PRN PO MIGRAINE HEADACHE Last administered on 05/15/20at 03:11; Start 05/15/20 at 03:00 Fentanyl Citrate (Fentanyl 2ml Vial) 50 mcg PRN Q3HRS PRN IVP PAIN Last administered on 05/16/20at 12:48; Start 05/15/20 at 03:00 Insulin Human Lispro (HumaLOG) 0-9 UNITS Q6HRS SQ Last administered on 05/16/20at 12:07; Start 05/15/20 at 12:00 Dextrose (Dextrose 50%-Water Syringe) 12.5 gm PRN Q15MIN PRN IV SEE COMMENTS; Start 05/15/20 at 07:30 Insulin Human Lispro (HumaLOG) 14 units 1X ONCE SQ Last administered on 05/15/20at 06:44; Start 05/15/20 at 06:45; Stop 05/15/20 at 06:46; Status DC Info (Anti-Coagulation Monitoring By Pharmacy) 1 each PRN DAILY PRN MC SEE COMMENTS Last administered on 05/16/20at 11:12; Start 05/15/20 at 08:00 Insulin Human Regular 100 unit/ Sodium Chloride 101 ml @ 0 mls/hr CONT PRN IV SEE I/O RECORD Last administered on 05/15/20at 21:18; Start 05/15/20 at 08:30 Vancomycin HCl (Vanco Per Pharmacy) 1 each PRN DAILY PRN MC SEE COMMENTS Last administered on 05/16/20at 12:15; Start 05/15/20 at 08:30 Piperacillin Sod/ Tazobactam Sod (Zosyn Per Pharmacy) 1 each PRN DAILY PRN MC SEE COMMENTS; Start 05/15/20 at 08:30 Polyethylene Glycol (miraLAX PACKET) 17 gm DAILY PO Last administered on 05/16/20 12:11; Start 05/15/20 at 09:00 Polyethylene Glycol (miraLAX PACKET) 17 gm PRN DAILY PRN PO CONSTIPATION Last administered on 05/15/20 13:43; Start 05/15/20 at 08:30 Docusate Sodium (Colace) 100 mg DAILY PO Last administered on 05/16/20at 07:31; Start 05/15/20 at 09:00 Sodium Chloride 1,000 ml @ 1,000 mls/hr 1X ONCE IV Last administered on 05/15/20at 08:41; Start 05/15/20 at 08:30; Stop 05/15/20 at 09:29; Status DC Sodium Bicarbonate 150 meq/Sterile Water 1,150 ml @ 125 mls/hr Q9H12M IV Last administered on 05/16/20at 03:20; Start 05/15/20 at 09:00; Stop 05/16/20 at 09:07; Status DC Vancomycin HCl (Vancomycin Random Level) 1 each 1X ONCE MC Last administered on 05/16/20at 11:06; Start 05/16/20 at 11:06; Stop 05/16/20 at 11:07; Status DC Piperacillin Sod/ Tazobactam Sod 2.25 gm/Sodium Chloride 50 ml @ 100 mls/hr Q6HRS IV ; Start 05/15/20 at 11:00; Stop 05/15/20 at 09:43; Status DC Piperacillin Sod/ Tazobactam Sod 2.25 gm/Sodium Chloride 50 ml @ 100 mls/hr Q8HRS IV Last administered on 05/16/20at 05:26; Start 05/15/20 at 11:00; Stop 05/16/20 at 12:30; Status DC Albuterol/ Ipratropium (Duoneb) 3 ml RTQID NEB Last administered on 05/16/20at 07:56; Start 05/15/20 at 12:00; Stop 05/16/20 at 11:09; Status DC Magnesium Sulfate 50 ml @ 25 mls/hr PRN DAILY PRN IV for Mag < 1.7 on am labs; Start 05/15/20 at 13:30 Sodium Monofluorophosphate (Fleet Adult) 133 ml DAILY PRN NE CONSTIPATION Last administered on 05/16/20at 13:24; Start 05/15/20 at 13:45 Norepinephrine Bitartrate 32 mg/ Dextrose 282 ml @ 3.818 mls/ hr CONT PRN IV PER PROTOCOL Last administered on 05/15/20at 14:26; Start 05/15/20 at 15:00 Hydrocortisone Sodium Succinate (Solu-CORTEF) 100 mg Q8HRS IVP Last administered on 05/16/20at 05:26; Start 05/15/20 at 16:00 Budesonide (Pulmicort) 0.5 mg RTBID NEB Last administered on 05/16/20at 07:57; Start 05/15/20 at 20:00 Budesonide (Pulmicort) 0.5 mg 1X ONCE NEB Last administered on 05/15/20at 15:48; Start 05/15/20 at 14:30; Stop 05/15/20 at 14:54; Status DC Ondansetron HCl (Zofran) 4 mg PRN Q8HRS PRN IVP NAUSEA/VOMITING Last administered on 05/16/20at 03:16; Start 05/16/20 at 03:15 Potassium Chloride/Water 100 ml @ 100 mls/hr Q1H IV Last administered on 05/16/20at 10:28; Start 05/16/20 at 09:00; Stop 05/16/20 at 10:59; Status DC Aripiprazole (Abilify) 2 mg DAILY PO Last administered on 05/16/20at 10:28; Start 05/16/20 at 11:00 Ascorbic Acid (Vitamin C) 500 mg BID PO ; Start 05/16/20 at 10:15 Aspirin (Ecotrin) 81 mg DAILY PO ; Start 05/16/20 at 10:00 Atorvastatin Calcium (Lipitor) 80 mg QHS PO ; Start 05/16/20 at 21:00 Bupropion HCl (Wellbutrin Xl) 150 mg BID PO Last administered on 05/16/20at 10:28; Start 05/16/20 at 10:14 Carbamazepine (TEGretol) 200 mg QHS PO ; Start 05/16/20 at 21:00 Albuterol/ Ipratropium (Duoneb) 3 ml TID NEB Last administered on 05/16/20at 12:15; Start 05/16/20 at 14:00 Metoprolol Succinate (Toprol Xl) 12.5 mg DAILY PO ; Start 05/16/20 at 10:15 Prasugrel (Effient) 10 mg DAILYWBKFT PO ; Start 05/16/20 at 10:15 Lorazepam (Ativan) 0.5 mg PRN Q8HRS PRN PO ANXIETY / AGITATION Last administe red on 05/16/20at 10:28; Start 05/16/20 at 10:00 Piperacillin Sod/ Tazobactam Sod 2.25 gm/Sodium Chloride 50 ml @ 100 mls/hr Q6H RS IV ; Start 05/16/20 at 18:00 Vancomycin HCl 1.25 gm/Sodium Chloride 250 ml @ 167 mls/hr Q24H IV ; Start 05/16/20 at 14:00 Vancomycin HCl (Vancomycin Trough Level) 1 each 1X ONCE MC ; Start 05/18/20 at 13:30; Stop 05/18/20 at 13:31 Pantoprazole Sodium (PROTONIX VIAL for IV PUSH) 40 mg DAILYAC IVP ; Start 05/17/20 at 07:30 Active Scripts Active Effient (Prasugrel Hcl) 10 Mg Tablet 10 Mg PO [id number] 30 Days Atorvastatin Calcium 40 Mg Tablet 80 Mg PO QHS Reported Furosemide 20 Mg Tablet 1 Tab PO DAILY Bupropion Xl (Bupropion Hcl) 150 Mg Tab.er.24h 150 Mg PO BID Tramadol Hcl 50 Mg Tablet 50 Mg PO Q4HRS PRN Cyclobenzaprine Hcl 5 Mg Tablet 5 Mg PO TID PRN Montelukast Sodium Tablet (Montelukast Sodium) 10 Mg Tablet 10 Mg PO HS Spironolactone 25 Mg Tablet 1 Tab PO DAILY Ranitidine Hcl 150 Mg Capsule 150 Mg PO DAILY Naproxen 500 Mg Tablet 1 Tab PO BID 30 Days Abilify (Aripiprazole) 2 Mg Tablet 2 Mg PO DAILY Buspirone Hcl 15 Mg Tablet 15 Mg PO TID Tegretol (Carbamazepine) 200 Mg Tablet 200 Mg PO QHS Metoprolol Succinate ( Xl ) (Metoprolol Succinate) 25 Mg Tab.er.24h 12.5 Mg PO DAILY Klonopin (Clonazepam) 0.5 Mg Tablet 0.5 Mg PO PRN BID PRN Fish Oil 1,000 Mg Capsule ([place]-3 Fatty Acids/Fish Oil) 1 Each Capsule 1 Each PO TID Cymbalta (Duloxetine Hcl) 60 Mg Capsule.dr 120 Mg PO DAILY Loperamide (Loperamide Hcl) 2 Mg Capsule 2 Mg PO Zyrtec (Cetirizine Hcl) 10 Mg Tablet 1 Tab PO DAILY Zonisamide 100 Mg Capsule 100 Mg PO TID Protonix (Pantoprazole Sodium) 20 Mg Tablet.dr 40 Mg PO DAILY Nortriptyline Hcl 25 Mg Capsule 50 Mg PO HS Duoneb 0.5-3(2.5) Mg/3 Ml (Albuterol/Ipratropium) 3 Ml Ampul.neb 3 Ml NEB TID Multivitamins (Multivitamin) 1 Each Tablet 1 Tab PO DAILY Mirtazapine 15 Mg Tablet 30 Mg PO QHS Lisinopril 5 Mg Tablet 1 Tab PO DAILY Vitamin B-12 (Cyanocobalamin (Vitamin B-12)) 1,000 Mcg Tablet 1 Tab PO DAILY Vitamin D (Cholecalciferol (Vitamin D3)) 1,000 Unit Capsule 1 Cap PO DAILY Ascorbic Acid 500 Mg Tablet 500 Mg PO BID Voltaren (Diclofenac Sodium) 100 Gm Gel..gram. 100 Gm TP QID Levemir Flextouch (Insulin Detemir) 100 Unit/1 Ml Insuln.pen 36 Unit SQ BID Flonase Allergy Relief (Fluticasone Propionate) 9.9 Ml Riley.susp 2 Spr NS DAILY Aspir 81 (Aspirin) 81 Mg Tablet.dr 81 Mg PO DAILY Ropinirole Hcl 1 Mg Tablet 1 Mg PO QHS Novolog (Insulin Aspart) 100 Unit/1 Ml Cartridge 6 Unit SQ TIDAC Vitals/I & O Vital Sign - Last 24 Hours 05/15/20 05/15/20 05/15/20 05/15/20 14:00 14:15 15:00 15:30 Pulse 110 109 Resp 33 28 B/P (MAP) 171/81 (111) 101/67 (78) 123/62 (82) 71/42 (52) Pulse Ox 93 95 O2 Delivery Nasal Cannula Nasal Cannula O2 Flow Rate 2.0 2.0 05/15/20 05/15/20 05/15/20 05/15/20 15:45 15:48 16:00 17:00 Pulse 108 Resp 36 B/P (MAP) 105/53 (70) 136/73 (94) Pulse Ox 92 91 O2 Delivery Nasal Cannula Nasal Cannula Nasal Cannula O2 Flow Rate 2.0 2.0 2.0 05/15/20 05/15/20 05/15/20 05/15/20 17:15 17:30 18:00 18:30 Pulse 102 Resp 38 B/P (MAP) 141/64 (89) 113/58 (76) 122/59 (80) 112/63 (79) Pulse Ox 91 O2 Delivery Nasal Cannula O2 Flow Rate 2.0 05/15/20 05/15/20 05/15/20 05/15/20 20:00 20:00 20:00 20:30 Temp 98.6 98.6 Pulse 100 Resp B/P (MAP) 127/66 (86) Pulse Ox 91 91 89 O2 Delivery Nasal Cannula Nasal Cannula Nasal Cannula Nasal Cannula O2 Flow Rate 2.0 2.0 2.0 2.0 05/15/20 05/15/20 05/15/20 05/15/20 20:38 20:39 21:00 22:00 Pulse 102 102 B/P (MAP) 155/73 (100) 167/70 (102) Pulse Ox 91 91 90 90 O2 Delivery Nasal Cannula Nasal Cannula Nasal Cannula Nasal Cannula O2 Flow Rate 2.0 2.0 2.0 2.0 05/15/20 05/15/20 05/16/20 05/16/20 23:00 23:40 00:00 01:00 Temp 98.3 98.3 Pulse 103 101 101 B/P (MAP) 159/66 (97) 172/73 (106) 154/72 (99) Pulse Ox 95 93 95 O2 Delivery Venturi Mask Venturi Mask Venturi Mask Venturi Mask O2 Flow Rate 3.0 3.0 3.0 3.0 05/16/20 05/16/20 05/16/20 05/16/20 02:00 03:00 04:00 04:00 Temp 100.1 100.1 Pulse 100 98 98 B/P (MAP) 164/58 (93) 141/69 (93) 119/67 (84) Pulse Ox 96 96 93 O2 Delivery Venturi Mask Venturi Mask Venturi Mask Venturi Mask O2 Flow Rate 3.0 3.0 3.0 3.0 05/16/20 05/16/20 05/16/20 05/16/20 05:00 05:53 06:49 07:00 Pulse 101 97 99 B/P (MAP) 137/82 (100) 106/46 (66) 103/47 (65) Pulse Ox 96 94 90 91 O2 Delivery Venturi Mask Venturi Mask Venturi Mask Venturi Mask O2 Flow Rate 3.0 3.0 3.0 3.0 05/16/20 05/16/20 05/16/20 05/16/20 07:19 07:57 08:00 08:00 Temp 98.6 98.6 Pulse 102 Resp 24 B/P (MAP) 121/70 (87) Pulse Ox 92 92 90 O2 Delivery Venturi Mask Venturi Mask Venturi Mask Venturi Mask O2 Flow Rate 3.0 3.0 3.0 3.0 05/16/20 05/16/20 05/16/20 05/16/20 09:00 09:30 10:00 11:00 Pulse 102 104 105 Resp 28 28 28 B/P (MAP) 142/66 (91) 146/70 (95) 95/58 (70) 138/86 (103) Pulse Ox 91 92 90 O2 Delivery Venturi Mask Venturi Mask Venturi Mask O2 Flow Rate 3.0 3.0 3.0 05/16/20 05/16/20 05/16/20 05/16/20 11:35 12:00 12:15 12:30 Temp 98.4 98.4 Pulse 107 Resp 28 B/P (MAP) 140/73 (95) Pulse Ox 90 92 95 O2 Delivery Venturi Mask Venturi Mask Venturi Mask BiPAP/CPAP O2 Flow Rate 3.0 3.0 3.0 05/16/20 05/16/20 12:48 13:00 Pulse 102 Resp 32 26 B/P (MAP) 90/56 (67) Pulse Ox 91 92 O2 Delivery BiPAP/CPAP BiPAP/CPAP Intake and Output 05/15/20 05/15/20 05/16/20 15:00 23:00 07:00 Intake Total 2152 ml 1776.05 ml 2290 ml Output Total 815 ml 400 ml 600 ml Balance 1337 ml 1376.05 ml 1690 ml Justifications for Admission Other Justification BENSON MERA MD May 16, 2020 13:40
[2020-05-16] MEDS ORDERED: VANCOMYCIN 1.25 GM in IV NORMAL SALINE 250ML 250 ML IV SCH (14:00)
[2020-05-16] MEDS: IV RINGERS,LACTATED 1000ML 1,000 ML IV SCH (14:38)
--- NOTE | 2020-05-16 14:51 | PDOC ---
PROGRESS NOTES Date of Service: DATE: 05/16/20 TIME: 14:48 Chief Complaint Chief Complaint sepsis, severe sepsis, shock Acute hypoxemic respiratory failure, on COPD and ARIANNA COVID risk, pt initial swab is negative acute acidosis on CKD 4, renal failure, DKA, acute acidosis with hyperosmolar syndrome, more stable on insulin gtt troponinemia, NSTEMI 2, demand, obese, BMI 39, some pickwickian habitus constipation, on chronic abdominal hernia, with abdominal pain History of Present Illness History of Present Illness continue the Vanc, zosyn, broad coverage, consutl ID, she is still very ill Vitals Vitals Vital Signs Date Time Temp Pulse Resp B/P (MAP) Pulse Ox O2 Delivery O2 Flow Rate FiO2 05/16/20 14:00 91 24 77/43 (54) 91 BiPAP/CPAP 05/16/20 12:15 3.0 05/16/20 12:00 98.4 98.4 Physical Exam General: Alert, Cooperative, mild distress Heart: Regular rate Lungs: Clear Abdomen: Normal bowel sounds Extremities: No cyanosis, No edema Skin: No rashes Labs LABS Laboratory Tests Test 05/15/20 15:30 05/15/20 16:48 05/15/20 17:56 05/15/20 19:03 Glucose (Fingerstick) 305 mg/dL (70-99) 301 mg/dL (70-99) 270 mg/dL (70-99) 227 mg/dL (70-99) Test 05/15/20 20:04 05/15/20 21:14 05/15/20 22:09 05/15/20 23:01 Glucose (Fingerstick) 168 mg/dL (70-99) 177 mg/dL (70-99) 129 mg/dL (70-99) 152 mg/dL (70-99) Test 05/16/20 00:08 05/16/20 01:06 05/16/20 02:10 05/16/20 03:14 Glucose (Fingerstick) 157 mg/dL (70-99) 98 mg/dL (70-99) 97 mg/dL (70-99) 100 mg/dL (70-99) Test 05/16/20 04:22 05/16/20 05:45 05/16/20 11:10 05/16/20 13:20 Glucose (Fingerstick) 111 mg/dL (70-99) White Blood Count 23.9 x10^3/uL (4.0-11.0) Red Blood Count 3.60 x10^6/uL (3.50-5.40) Hemoglobin 10.1 g/dL (12.0-15.5) Hematocrit 31.9 % (36.0-47.0) Mean Corpuscular Volume 89 fL (79-100) Mean Corpuscular Hemoglobin 28 pg (25-35) Mean Corpuscular Hemoglobin Concent 32 g/dL (31-37) Red Cell Distribution Width 16.7 % (11.5-14.5) Platelet Count 277 x10^3/uL (140-400) Neutrophils (%) (Auto) 89 % (31-73) Lymphocytes (%) (Auto) 9 % (24-48) Monocytes (%) (Auto) 2 % (0-9) Eosinophils (%) (Auto) 0 % (0-3) Basophils (%) (Auto) 0 % (0-3) Neutrophils # (Auto) 21.2 x10^3/uL (1.8-7.7) Lymphocytes # (Auto) 2.1 x10^3/uL (1.0-4.8) Monocytes # (Auto) 0.5 x10^3/uL (0.0-1.1) Eosinophils # (Auto) 0.0 x10^3/uL (0.0-0.7) Basophils # (Auto) 0.0 x10^3/uL (0.0-0.2) Heparin Anti-Xa Act, Unfractionated 0.17 IU/mL (0.30-0.70) 0.35 IU/mL (0.30-0.70) Sodium Level 127 mmol/L (136-145) Potassium Level 3.4 mmol/L (3.5-5.1) Chloride Level 91 mmol/L (98-107) Carbon Dioxide Level 23 mmol/L (21-32) Anion Gap 13 (6-14) Blood Urea Nitrogen 32 mg/dL (7-20) Creatinine 1.5 mg/dL (0.6-1.0) Estimated GFR (Cockcroft-Gault) 33.9 BUN/Creatinine Ratio 21 (6-20) Glucose Level 100 mg/dL (70-99) Calcium Level 7.5 mg/dL (8.5-10.1) Phosphorus Level 4.2 mg/dL (2.6-4.7) Magnesium Level 2.5 mg/dL (1.8-2.4) Total Bilirubin 0.4 mg/dL (0.2-1.0) Aspartate Amino Transf (AST/SGOT) 89 U/L (15-37) Alanine Aminotransferase (ALT/SGPT) 34 U/L (14-59) Alkaline Phosphatase 204 U/L (46-116) Total Protein 5.6 g/dL (6.4-8.2) Albumin 1.8 g/dL (3.4-5.0) Albumin/Globulin Ratio 0.5 (1.0-1.7) Random Vancomycin Level 16.3 mcg/mL Urine Collection Type Unknown Urine Color Yellow Urine Clarity Clear Urine pH 8.0 (<5.0-8.0) Urine Specific [place] 1.020 (1.000-1.030) Urine Protein 100 mg/dL (NEG-TRACE) Urine Glucose (UA) 500 mg/dL (NEG) Urine Ketones (Stick) Negative mg/dL (NEG) Urine Blood Moderate (NEG) Urine Nitrite Negative (NEG) Urine Bilirubin Negative (NEG) Urine Urobilinogen Dipstick 0.2 mg/dL (0.2 mg/dL) Urine Leukocyte Esterase Negative (NEG) Urine RBC 1-2 /HPF (0-2) Urine WBC Occ /HPF (0-4) Urine Bacteria 0 /HPF (0-FEW) Urine Yeast Present /HPF Urine Random Creatinine 40.7 mg/dL (Not Establ.) Urine Random Total Protein 114.5 mg/dL (Not Establ.) Urine Protein/Creatinine Ratio 2813 mg/g (0-200) Comment Review of Relevant I have reviewed the following items danisha (where applicable) has been applied. Labs Laboratory Tests Test 05/14/20 18:07 05/14/20 18:14 05/14/20 18:15 05/14/20 19:05 Coronavirus (PCR) Not detected (Not Detected) White Blood Count 29.1 x10^3/uL (4.0-11.0) Red Blood Count 4.29 x10^6/uL (3.50-5.40) Hemoglobin 12.4 g/dL (12.0-15.5) Hematocrit 40.5 % (36.0-47.0) Mean Corpuscular Volume 94 fL (79-100) Mean Corpuscular Hemoglobin 29 pg (25-35) Mean Corpuscular Hemoglobin Concent 31 g/dL (31-37) Red Cell Distribution Width 17.0 % (11.5-14.5) Platelet Count 322 x10^3/uL (140-400) Neutrophils (%) (Auto) 70 % (31-73) Lymphocytes (%) (Auto) 22 % (24-48) Monocytes (%) (Auto) 5 % (0-9) Eosinophils (%) (Auto) 2 % (0-3) Basophils (%) (Auto) 1 % (0-3) Neutrophils # (Auto) 20.2 x10^3/uL (1.8-7.7) Lymphocytes # (Auto) 6.5 x10^3/uL (1.0-4.8) Monocytes # (Auto) 1.5 x10^3/uL (0.0-1.1) Eosinophils # (Auto) 0.7 x10^3/uL (0.0-0.7) Basophils # (Auto) 0.2 x10^3/uL (0.0-0.2) Segmented Neutrophils % 50 % (35-66) Band Neutrophils % 3 % (0-9) Lymphocytes % 33 % (24-48) Monocytes % 8 % (0-10) Eosinophils % 5 % (0-5) Metamyelocytes % 1 % (0-0) Toxic Granulation Platelet Estimate Adequate (ADEQUATE) Platelet Clumps, EDTA Present Large Platelets Present Polychromasia Present Poikilocytosis Mod Anisocytosis Slight Microcytosis Slight Helmet Cells Occ Crenated Cell Present Acanthocytes Occ RBC Morphology Bizarre Forms Prothrombin Time 15.7 SEC (11.7-14.0) Prothromb Time International Ratio 1.3 (0.8-1.1) D-Dimer (Kaila) > 20.00 ug/mlFEU Sodium Level 135 mmol/L (136-145) Potassium Level 4.5 mmol/L (3.5-5.1) Chloride Level 101 mmol/L (98-107) Carbon Dioxide Level 15 mmol/L (21-32) Anion Gap 19 (6-14) Blood Urea Nitrogen 33 mg/dL (7-20) Creatinine 2.2 mg/dL (0.6-1.0) Estimated GFR (Cockcroft-Gault) 21.8 Glucose Level 402 mg/dL (70-99) Calcium Level 10.0 mg/dL (8.5-10.1) Magnesium Level 2.8 mg/dL (1.8-2.4) Total Bilirubin 0.6 mg/dL (0.2-1.0) Direct Bilirubin 0.1 mg/dL (0.0-0.2) Aspartate Amino Transf (AST/SGOT) 28 U/L (15-37) Alanine Aminotransferase (ALT/SGPT) 28 U/L (14-59) Alkaline Phosphatase 228 U/L (46-116) Troponin I Quantitative < 0.017 ng/mL (0.000-0.055) NT-Hpi-E-Type Natriuretic Peptide 368 pg/mL (0-124) Total Protein 7.8 g/dL (6.4-8.2) Albumin 3.3 g/dL (3.4-5.0) Lipase 265 U/L (73-393) O2 Saturation 91 % (92-99) Arterial Blood pH 7.15 (7.35-7.45) Arterial Blood pCO2 at Patient Temp 34 mmHg (35-46) Arterial Blood pO2 at Patient Temp 73 mmHg (65-108) Arterial Blood HCO3 12 mmol/L (21-28) Arterial Blood Base Excess -16 mmol/L (-3-3) Oxyhemoglobin 90.6 % Methemoglobin 0.1 % (0.0-1.9) Carbon Monoxide, Quantitative 0.3 % (0.0-1.9) FiO2 100 SARS-CoV-2 Antigen (Rapid) Negative (NEGATIVE) Test 05/14/20 19:20 05/14/20 20:20 05/14/20 21:35 05/14/20 23:15 Lactic Acid Level 2.9 mmol/L (0.4-2.0) 5.8 mmol/L (0.4-2.0) Urine Collection Type U cath Urine Color Yellow Urine Clarity Clear Urine pH 5.5 (<5.0-8.0) Urine Specific [place] >=1.030 (1.000-1.030) Urine Protein 100 mg/dL (NEG-TRACE) Urine Glucose (UA) >=1000 mg/dL (NEG) Urine Ketones (Stick) Negative mg/dL (NEG) Urine Blood Negative (NEG) Urine Nitrite Negative (NEG) Urine Bilirubin Small (NEG) Urine Urobilinogen Dipstick 0.2 mg/dL (0.2 mg/dL) Urine Leukocyte Esterase Negative (NEG) Urine RBC Occ /HPF (0-2) Urine WBC 1-4 /HPF (0-4) Urine Squamous Epithelial Cells Few /LPF Urine Amorphous Sediment Present /HPF Urine Bacteria Few /HPF (0-FEW) Urine Hyaline Casts Occasional /HPF Troponin I Quantitative 0.211 ng/mL (0.000-0.055) Test 05/15/20 00:15 05/15/20 06:35 05/15/20 07:40 05/15/20 10:10 Troponin I Quantitative 1.190 ng/mL (0.000-0.055) 45.060 ng/mL (0.000-0.055) 33.869 ng/mL (0.000-0.055) Sodium Level 127 mmol/L (136-145) 127 mmol/L (136-145) Potassium Level 4.9 mmol/L (3.5-5.1) 5.5 mmol/L (3.5-5.1) Chloride Level 94 mmol/L (98-107) 93 mmol/L (98-107) Carbon Dioxide Level 14 mmol/L (21-32) 15 mmol/L (21-32) Anion Gap 19 (6-14) 19 (6-14) Blood Urea Nitrogen 35 mg/dL (7-20) 35 mg/dL (7-20) Creatinine 2.5 mg/dL (0.6-1.0) 2.4 mg/dL (0.6-1.0) Estimated GFR (Cockcroft-Gault) 18.8 19.7 Glucose Level 719 mg/dL (70-99) 691 mg/dL (70-99) Calcium Level 8.0 mg/dL (8.5-10.1) 8.0 mg/dL (8.5-10.1) White Blood Count 21.0 x10^3/uL (4.0-11.0) Red Blood Count 3.82 x10^6/uL (3.50-5.40) Hemoglobin 11.1 g/dL (12.0-15.5) Hematocrit 36.8 % (36.0-47.0) Mean Corpuscular Volume 96 fL (79-100) Mean Corpuscular Hemoglobin 29 pg (25-35) Mean Corpuscular Hemoglobin Concent 30 g/dL (31-37) Red Cell Distribution Width 17.2 % (11.5-14.5) Platelet Count 334 x10^3/uL (140-400) Neutrophils (%) (Auto) 90 % (31-73) Lymphocytes (%) (Auto) 8 % (24-48) Monocytes (%) (Auto) 2 % (0-9) Eosinophils (%) (Auto) 0 % (0-3) Basophils (%) (Auto) 0 % (0-3) Neutrophils # (Auto) 19.0 x10^3/uL (1.8-7.7) Lymphocytes # (Auto) 1.6 x10^3/uL (1.0-4.8) Monocytes # (Auto) 0.4 x10^3/uL (0.0-1.1) Eosinophils # (Auto) 0.0 x10^3/uL (0.0-0.7) Basophils # (Auto) 0.0 x10^3/uL (0.0-0.2) Heparin Anti-Xa Act, Unfractionated 0.41 IU/mL (0.30-0.70) Triglycerides Level 233 mg/dL (0-150) Cholesterol Level 88 mg/dL (0-200) LDL Cholesterol, Calculated 25 mg/dL (0-100) VLDL Cholesterol, Calculated 47 mg/dL (0-40) Non-HDL Cholesterol Calculated 72 mg/dL (0-129) HDL Cholesterol 16 mg/dL (40-60) Cholesterol/HDL Ratio 5.5 Test 05/15/20 10:14 05/15/20 11:24 05/15/20 12:09 05/15/20 12:31 Glucose (Fingerstick) 532 mg/dL (70-99) 499 mg/dL (70-99) 478 mg/dL (70-99) Heparin Anti-Xa Act, Unfractionated 0.44 IU/mL (0.30-0.70) Sodium Level 127 mmol/L (136-145) Potassium Level 3.8 mmol/L (3.5-5.1) Chloride Level 95 mmol/L (98-107) Carbon Dioxide Level 17 mmol/L (21-32) Anion Gap 15 (6-14) Blood Urea Nitrogen 35 mg/dL (7-20) Creatinine 2.3 mg/dL (0.6-1.0) Estimated GFR (Cockcroft-Gault) 20.7 Glucose Level 461 mg/dL (70-99) Calcium Level 7.6 mg/dL (8.5-10.1) Creatine Kinase 484 U/L (26-192) Test 05/15/20 13:32 05/15/20 14:37 05/15/20 15:30 05/15/20 16:48 Glucose (Fingerstick) 441 mg/dL (70-99) 419 mg/dL (70-99) 305 mg/dL (70-99) 301 mg/dL (70-99) Test 05/15/20 17:56 05/15/20 19:03 05/15/20 20:04 05/15/20 21:14 Glucose (Fingerstick) 270 mg/dL (70-99) 227 mg/dL (70-99) 168 mg/dL (70-99) 177 mg/dL (70-99) Test 05/15/20 22:09 05/15/20 23:01 05/16/20 00:08 05/16/20 01:06 Glucose (Fingerstick) 129 mg/dL (70-99) 152 mg/dL (70-99) 157 mg/dL (70-99) 98 mg/dL (70-99) Test 05/16/20 02:10 05/16/20 03:14 05/16/20 04:22 05/16/20 05:45 Glucose (Fingerstick) 97 mg/dL (70-99) 100 mg/dL (70-99) 111 mg/dL (70-99) White Blood Count 23.9 x10^3/uL (4.0-11.0) Red Blood Count 3.60 x10^6/uL (3.50-5.40) Hemoglobin 10.1 g/dL (12.0-15.5) Hematocrit 31.9 % (36.0-47.0) Mean Corpuscular Volume 89 fL (79-100) Mean Corpuscular Hemoglobin 28 pg (25-35) Mean Corpuscular Hemoglobin Concent 32 g/dL (31-37) Red Cell Distribution Width 16.7 % (11.5-14.5) Platelet Count 277 x10^3/uL (140-400) Neutrophils (%) (Auto) 89 % (31-73) Lymphocytes (%) (Auto) 9 % (24-48) Monocytes (%) (Auto) 2 % (0-9) Eosinophils (%) (Auto) 0 % (0-3) Basophils (%) (Auto) 0 % (0-3) Neutrophils # (Auto) 21.2 x10^3/uL (1.8-7.7) Lymphocytes # (Auto) 2.1 x10^3/uL (1.0-4.8) Monocytes # (Auto) 0.5 x10^3/uL (0.0-1.1) Eosinophils # (Auto) 0.0 x10^3/uL (0.0-0.7) Basophils # (Auto) 0.0 x10^3/uL (0.0-0.2) Heparin Anti-Xa Act, Unfractionated 0.17 IU/mL (0.30-0.70) Sodium Level 127 mmol/L (136-145) Potassium Level 3.4 mmol/L (3.5-5.1) Chloride Level 91 mmol/L (98-107) Carbon Dioxide Level 23 mmol/L (21-32) Anion Gap 13 (6-14) Blood Urea Nitrogen 32 mg/dL (7-20) Creatinine 1.5 mg/dL (0.6-1.0) Estimated GFR (Cockcroft-Gault) 33.9 BUN/Creatinine Ratio 21 (6-20) Glucose Level 100 mg/dL (70-99) Calcium Level 7.5 mg/dL (8.5-10.1) Phosphorus Level 4.2 mg/dL (2.6-4.7) Magnesium Level 2.5 mg/dL (1.8-2.4) Total Bilirubin 0.4 mg/dL (0.2-1.0) Aspartate Amino Transf (AST/SGOT) 89 U/L (15-37) Alanine Aminotransferase (ALT/SGPT) 34 U/L (14-59) Alkaline Phosphatase 204 U/L (46-116) Total Protein 5.6 g/dL (6.4-8.2) Albumin 1.8 g/dL (3.4-5.0) Albumin/Globulin Ratio 0.5 (1.0-1.7) Random Vancomycin Level 16.3 mcg/mL Test 05/16/20 11:10 05/16/20 13:20 Urine Collection Type Unknown Urine Color Yellow Urine Clarity Clear Urine pH 8.0 (<5.0-8.0) Urine Specific [place] 1.020 (1.000-1.030) Urine Protein 100 mg/dL (NEG-TRACE) Urine Glucose (UA) 500 mg/dL (NEG) Urine Ketones (Stick) Negative mg/dL (NEG) Urine Blood Moderate (NEG) Urine Nitrite Negative (NEG) Urine Bilirubin Negative (NEG) Urine Urobilinogen Dipstick 0.2 mg/dL (0.2 mg/dL) Urine Leukocyte Esterase Negative (NEG) Urine RBC 1-2 /HPF (0-2) Urine WBC Occ /HPF (0-4) Urine Bacteria 0 /HPF (0-FEW) Urine Yeast Present /HPF Urine Random Creatinine 40.7 mg/dL (Not Establ.) Urine Random Total Protein 114.5 mg/dL (Not Establ.) Urine Protein/Creatinine Ratio 2813 mg/g (0-200) Heparin Anti-Xa Act, Unfractionated 0.35 IU/mL (0.30-0.70) Laboratory Tests Test 05/15/20 15:30 05/15/20 16:48 05/15/20 17:56 05/15/20 19:03 Glucose (Fingerstick) 305 mg/dL (70-99) 301 mg/dL (70-99) 270 mg/dL (70-99) 227 mg/dL (70-99) Test 05/15/20 20:04 05/15/20 21:14 05/15/20 22:09 05/15/20 23:01 Glucose (Fingerstick) 168 mg/dL (70-99) 177 mg/dL (70-99) 129 mg/dL (70-99) 152 mg/dL (70-99) Test 05/16/20 00:08 05/16/20 01:06 05/16/20 02:10 05/16/20 03:14 Glucose (Fingerstick) 157 mg/dL (70-99) 98 mg/dL (70-99) 97 mg/dL (70-99) 100 mg/dL (70-99) Test 05/16/20 04:22 05/16/20 05:45 05/16/20 11:10 05/16/20 13:20 Glucose (Fingerstick) 111 mg/dL (70-99) White Blood Count 23.9 x10^3/uL (4.0-11.0) Red Blood Count 3.60 x10^6/uL (3.50-5.40) Hemoglobin 10.1 g/dL (12.0-15.5) Hematocrit 31.9 % (36.0-47.0) Mean Corpuscular Volume 89 fL (79-100) Mean Corpuscular Hemoglobin 28 pg (25-35) Mean Corpuscular Hemoglobin Concent 32 g/dL (31-37) Red Cell Distribution Width 16.7 % (11.5-14.5) Platelet Count 277 x10^3/uL (140-400) Neutrophils (%) (Auto) 89 % (31-73) Lymphocytes (%) (Auto) 9 % (24-48) Monocytes (%) (Auto) 2 % (0-9) Eosinophils (%) (Auto) 0 % (0-3) Basophils (%) (Auto) 0 % (0-3) Neutrophils # (Auto) 21.2 x10^3/uL (1.8-7.7) Lymphocytes # (Auto) 2.1 x10^3/uL (1.0-4.8) Monocytes # (Auto) 0.5 x10^3/uL (0.0-1.1) Eosinophils # (Auto) 0.0 x10^3/uL (0.0-0.7) Basophils # (Auto) 0.0 x10^3/uL (0.0-0.2) Heparin Anti-Xa Act, Unfractionated 0.17 IU/mL (0.30-0.70) 0.35 IU/mL (0.30-0.70) Sodium Level 127 mmol/L (136-145) Potassium Level 3.4 mmol/L (3.5-5.1) Chloride Level 91 mmol/L (98-107) Carbon Dioxide Level 23 mmol/L (21-32) Anion Gap 13 (6-14) Blood Urea Nitrogen 32 mg/dL (7-20) Creatinine 1.5 mg/dL (0.6-1.0) Estimated GFR (Cockcroft-Gault) 33.9 BUN/Creatinine Ratio 21 (6-20) Glucose Level 100 mg/dL (70-99) Calcium Level 7.5 mg/dL (8.5-10.1) Phosphorus Level 4.2 mg/dL (2.6-4.7) Magnesium Level 2.5 mg/dL (1.8-2.4) Total Bilirubin 0.4 mg/dL (0.2-1.0) Aspartate Amino Transf (AST/SGOT) 89 U/L (15-37) Alanine Aminotransferase (ALT/SGPT) 34 U/L (14-59) Alkaline Phosphatase 204 U/L (46-116) Total Protein 5.6 g/dL (6.4-8.2) Albumin 1.8 g/dL (3.4-5.0) Albumin/Globulin Ratio 0.5 (1.0-1.7) Random Vancomycin Level 16.3 mcg/mL Urine Collection Type Unknown Urine Color Yellow Urine Clarity Clear Urine pH 8.0 (<5.0-8.0) Urine Specific [place] 1.020 (1.000-1.030) Urine Protein 100 mg/dL (NEG-TRACE) Urine Glucose (UA) 500 mg/dL (NEG) Urine Ketones (Stick) Negative mg/dL (NEG) Urine Blood Moderate (NEG) Urine Nitrite Negative (NEG) Urine Bilirubin Negative (NEG) Urine Urobilinogen Dipstick 0.2 mg/dL (0.2 mg/dL) Urine Leukocyte Esterase Negative (NEG) Urine RBC 1-2 /HPF (0-2) Urine WBC Occ /HPF (0-4) Urine Bacteria 0 /HPF (0-FEW) Urine Yeast Present /HPF Urine Random Creatinine 40.7 mg/dL (Not Establ.) Urine Random Total Protein 114.5 mg/dL (Not Establ.) Urine Protein/Creatinine Ratio 2813 mg/g (0-200) Medications Current Medications Iodixanol (Visipaque 320) 100 ml [employer]-[facility] [employer] ONCE .ROUTE ; Start 05/14/20 at 18:14; Stop 05/14/20 at 18:15; Status DC Lidocaine HCl (Lidocaine 1% 20ml Vial) 20 ml STK-MED ONCE .ROUTE ; Start 05/14/20 at 18:14; Stop 05/14/20 at 18:15; Status DC Heparin Sodium/ Sodium Chloride 500 ml @ As Directed STK-MED ONCE .ROUTE ; Start 05/14/20 at 18:15; Stop 05/14/20 at 18:15; Status DC Fentanyl Citrate (Fentanyl 2ml Vial) 100 mcg STK-MED ONCE .ROUTE ; Start 05/14/20 at 18:15; Stop 05/14/20 at 18:16; Status DC Midazolam HCl (Versed) 2 mg STK-MED ONCE .ROUTE ; Start 05/14/20 at 18:16; Stop 05/14/20 at 18:16; Status DC Dopamine HCl/ Dextrose 250 ml @ As Directed STK-MED ONCE IV ; Start 05/14/20 at 18:17; Stop 05/14/20 at 18:18; Status DC Sodium Chloride 1,000 ml @ 1,000 mls/hr Q1H IV Last administered on 05/14/20at 18:14; Start 05/14/20 at 18:15; Stop 05/14/20 at 19:14; Status DC Heparin Sodium/ Sodium Chloride 500 ml @ As Directed STK-MED ONCE .ROUTE ; Start 05/14/20 at 18:19; Stop 05/14/20 at 18:19; Status DC Dopamine HCl/ Dextrose 250 ml @ 13.538 mls/ hr 1X ONCE IV Last administered on 05/14/20at 18:19; Start 05/14/20 at 18:30; Stop 05/15/20 at 03:03; Status DC Aspirin (Aspirin Chewable) 162 mg 1X ONCE PO ; Start 05/14/20 at 18:30; Stop 05/14/20 at 18:31; Status DC Aspirin (Aspirin Chewable) 81 mg [id number] PO Last administered on 05/16/20at 07:31; Start 05/15/20 at 08:00 Norepinephrine Bitartrate 8 mg/ Dextrose 258 ml @ 13.971 mls/ hr 1X ONCE IV Last administered on 05/14/20at 18:50; Start 05/14/20 at 19:00; Stop 05/15/20 at 13:28; Status DC Sodium Bicarbonate 150 meq/Sterile Water 1,150 ml @ 125 mls/hr 1X ONCE IV Last administered on 05/14/20at 19:25; Start 05/14/20 at 19:30; Stop 05/15/20 at 04:41; Status DC Sodium Chloride 1,000 ml @ 1,000 mls/hr 1X ONCE IV Last administered on 05/14/20at 19:27; Start 05/14/20 at 19:15; Stop 05/14/20 at 20:14; Status DC Piperacillin Sod/ Tazobactam Sod 3.375 gm/Sodium Chloride 50 ml @ 100 mls/hr 1X ONCE IV ; Start 05/14/20 at 19:15; Stop 05/14/20 at 19:44; Status UNV Vancomycin HCl 1.25 gm/Sodium Chloride 250 ml @ 166.667 mls/hr 1X ONCE IV Last administered on 05/14/20at 20:24; Start 05/14/20 at 19:15; Stop 05/14/20 at 20:44; Status DC Piperacillin Sod/ Tazobactam Sod 2.25 gm/Sodium Chloride 50 ml @ 100 mls/hr 1X ONCE IV Last administered on 05/14/20at 19:58; Start 05/14/20 at 19:15; Stop 05/14/20 at 19:44; Status DC Iohexol (Omnipaque 350 Mg/ml) 100 ml 1X ONCE IV Last administered on 05/14/20at 20:03; Start 05/14/20 at 20:00; Stop 05/14/20 at 20:01; Status DC Info (CONTRAST GIVEN -- Rx MONITORING) 1 each PRN DAILY PRN MC SEE COMMENTS; Start 05/14/20 at 20:15; Stop 05/16/20 at 20:14 Vasopressin 20 unit/Dextrose 101 ml @ 11.882 mls/ hr 1X ONCE IV Last administered on 05/14/20at 20:36; Start 05/14/20 at 20:15; Stop 05/15/20 at 04:45; Status DC Ondansetron HCl (Zofran) 4 mg PRN Q8HRS PRN IV NAUSEA/VOMITING Last administered on 05/15/20at 19:59; Start 05/14/20 at 22:00; Stop 05/15/20 at 21:59; Status DC Heparin Sodium (Porcine) (Heparin Sodium) 4,000 unit 1X ONCE IV Last administered on 05/14/20at 23:09; Start 05/14/20 at 22:15; Stop 05/14/20 at 22:16; Status DC Heparin Sodium/ Dextrose 250 ml @ 0 mls/hr CONT PRN IV PER PROTOCOL Last administered on 05/15/20at 22:01; Start 05/14/20 at 22:15 Heparin Sodium (Porcine) (Heparin Sodium) 1,800 unit PRN Q6HRS PRN IV FOR UFH LEVEL LESS THAN 0.2 Last administered on 05/16/20at 07:31; Start 05/14/20 at 22:15 Norepinephrine Bitartrate 8 mg/ Dextrose 258 ml @ 13.971 mls/ hr 1X ONCE IV Last administered on 05/15/20at 04:25; Start 05/14/20 at 22:15; Stop 05/15/20 at 07:03; Status DC Acetaminophen (Tylenol) 1,000 mg 1X ONCE PO Last administered on 05/14/20at 23:04; Start 05/14/20 at 22:30; Stop 05/14/20 at 22:39; Status DC Dopamine HCl/ Dextrose 250 ml @ 13.538 mls/ hr CONT PRN IV SEE I/O RECORD Last administered on 05/15/20at 20:57; Start 05/14/20 at 23:00 Vasopressin 20 unit/Dextrose 101 ml @ 12 mls/hr CONT PRN IV SEE I/O RECORD Last administered on 05/16/20at 07:32; Start 05/14/20 at 23:00 Norepinephrine Bitartrate 8 mg/ Dextrose 258 ml @ 13.971 mls/ hr CONT PRN IV PER PROTOCOL Last administered on 05/15/20at 11:02; Start 05/14/20 at 23:00; Stop 05/15/20 at 14:59; Status DC Hydrocortisone Sodium Succinate (Solu-CORTEF) 100 mg Q12HR IVP Last administered on 05/15/20at 11:33; Start 05/15/20 at 09:00; Stop 05/15/20 at 14:32; Status DC Vancomycin HCl 1.25 gm/Sodium Chloride 250 ml @ 166.667 mls/hr 1X ONCE IV Last administered on 05/15/20at 02:34; Start 05/15/20 at 01:00; Stop 05/15/20 at 02:29; Status DC Piperacillin Sod/ Tazobactam Sod 2.25 gm/Sodium Chloride 50 ml @ 100 mls/hr 1X ONCE IV Last administered on 05/15/20at 01:02; Start 05/15/20 at 01:00; Stop 05/15/20 at 01:29; Status DC Sodium Chloride 1,000 ml @ 100 mls/hr 1X ONCE IV Last administered on 05/15/20at 01:02; Start 05/15/20 at 01:00; Stop 05/15/20 at 10:59; Status DC Acetaminophen/ Aspirin/Caffeine (Excedrin Migraine) 1 tab PRN Q6HRS PRN PO MIGRAINE HEADACHE Last administered on 05/15/20at 03:11; Start 05/15/20 at 03:00 Fentanyl Citrate (Fentanyl 2ml Vial) 50 mcg PRN Q3HRS PRN IVP PAIN Last administered on 05/16/20at 12:48; Start 05/15/20 at 03:00 Insulin Human Lispro (HumaLOG) 0-9 UNITS Q6HRS SQ Last administered on 05/16/20at 12:07; Start 05/15/20 at 12:00 Dextrose (Dextrose 50%-Water Syringe) 12.5 gm PRN Q15MIN PRN IV SEE COMMENTS; Start 05/15/20 at 07:30 Insulin Human Lispro (HumaLOG) 14 units 1X ONCE SQ Last administered on 05/15/20at 06:44; Start 05/15/20 at 06:45; Stop 05/15/20 at 06:46; Status DC Info (Anti-Coagulation Monitoring By Pharmacy) 1 each PRN DAILY PRN MC SEE COMMENTS Last administered on 05/16/20at 11:12; Start 05/15/20 at 08:00 Insulin Human Regular 100 unit/ Sodium Chloride 101 ml @ 0 mls/hr CONT PRN IV SEE I/O RECORD Last administered on 05/15/20at 21:18; Start 05/15/20 at 08:30 Vancomycin HCl (Vanco Per Pharmacy) 1 each PRN DAILY PRN MC SEE COMMENTS Last administered on 05/16/20at 12:15; Start 05/15/20 at 08:30 Piperacillin Sod/ Tazobactam Sod (Zosyn Per Pharmacy) 1 each PRN DAILY PRN MC SEE COMMENTS; Start 05/15/20 at 08:30 Polyethylene Glycol (miraLAX PACKET) 17 gm DAILY PO Last administered on 05/16/20at 12:11; Start 05/15/20 at 09:00 Polyethylene Glycol (miraLAX PACKET) 17 gm PRN DAILY PRN PO CONSTIPATION Last administered on 05/15/20at 13:43; Start 05/15/20 at 08:30 Docusate Sodium (Colace) 100 mg DAILY PO Last administered on 05/16/20at 07:31; Start 05/15/20 at 09:00 Sodium Chloride 1,000 ml @ 1,000 mls/hr 1X ONCE IV Last administered on 05/15/20at 08:41; Start 05/15/20 at 08:30; Stop 05/15/20 at 09:29; Status DC Sodium Bicarbonate 150 meq/Sterile Water 1,150 ml @ 125 mls/hr Q9H12M IV Last administered on 05/16/20at 03:20; Start 05/15/20 at 09:00; Stop 05/16/20 at 09:07; Status DC Vancomycin HCl (Vancomycin Random Level) 1 each 1X ONCE MC Last administered on 05/16/20at 11:06; Start 05/16/20 at 11:06; Stop 05/16/20 at 11:07; Status DC Piperacillin Sod/ Tazobactam Sod 2.25 gm/Sodium Chloride 50 ml @ 100 mls/hr Q6HRS IV ; Start 05/15/20 at 11:00; Stop 05/15/20 at 09:43; Status DC Piperacillin Sod/ Tazobactam Sod 2.25 gm/Sodium Chloride 50 ml @ 100 mls/hr Q8HRS IV Last administered on 05/16/20at 05:26; Start 05/15/20 at 11:00; Stop 05/16/20 at 12:30; Status DC Albuterol/ Ipratropium (Duoneb) 3 ml RTQID NEB Last administered on 05/16/20at 07:56; Start 05/15/20 at 12:00; Stop 05/16/20 at 11:09; Status DC Magnesium Sulfate 50 ml @ 25 mls/hr PRN DAILY PRN IV for Mag < 1.7 on am labs; Start 05/15/20 at 13:30 Sodium Monofluorophosphate (Fleet Adult) 133 ml DAILY PRN [place] CONSTIPATION Last administered on 05/16/20at 13:24; Start 05/15/20 at 13:45 Norepinephrine Bitartrate 32 mg/ Dextrose 282 ml @ 3.818 mls/ hr CONT PRN IV PER PROTOCOL Last administered on 05/15/20at 14:26; Start 05/15/20 at 15:00 Hydrocortisone Sodium Succinate (Solu-CORTEF) 100 mg Q8HRS IVP Last administered on 05/16/20at 14:05; Start 05/15/20 at 16:00 Budesonide (Pulmicort) 0.5 mg RTBID NEB Last administered on 05/16/20at 07:57; Start 05/15/20 at 20:00 Budesonide (Pulmicort) 0.5 mg 1X ONCE NEB Last administered on 05/15/20at 15:48; Start 05/15/20 at 14:30; Stop 05/15/20 at 14:54; Status DC Ondansetron HCl (Zofran) 4 mg PRN Q8HRS PRN IVP NAUSEA/VOMITING Last administered on 05/16/20at 03:16; Start 05/16/20 at 03:15 Potassium Chloride/Water 100 ml @ 100 mls/hr Q1H IV Last administered on 05/16/20at 10:28; Start 05/16/20 at 09:00; Stop 05/16/20 at 10:59; Status DC Aripiprazole (Abilify) 2 mg DAILY PO Last administered on 05/16/20at 10:28; Start 05/16/20 at 11:00 Ascorbic Acid (Vitamin C) 500 mg BID PO ; Start 05/16/20 at 10:15 Aspirin (Ecotrin) 81 mg DAILY PO ; Start 05/16/20 at 10:00 Atorvastatin Calcium (Lipitor) 80 mg QHS PO ; Start 05/16/20 at 21:00 Bupropion HCl (Wellbutrin Xl) 150 mg BID PO Last administered on 05/16/20at 10:28; Start 05/16/20 at 10:14 Carbamazepine (TEGretol) 200 mg QHS PO ; Start 05/16/20 at 21:00 Albuterol/ Ipratropium (Duoneb) 3 ml TID NEB Last administered on 05/16/20at 12:15; Start 05/16/20 at 14:00 Metoprolol Succinate (Toprol Xl) 12.5 mg DAILY PO ; Start 05/16/20 at 10:15 Prasugrel (Effient) 10 mg DAILYWBKFT PO ; Start 05/16/20 at 10:15 Lorazepam (Ativan) 0.5 mg PRN Q8HRS PRN PO ANXIETY / AGITATION Last administered on 05/16/20at 10:28; Start 05/16/20 at 10:00 Piperacillin Sod/ Tazobactam Sod 2.25 gm/Sodium Chloride 50 ml @ 100 mls/hr Q6HRS IV ; Start 05/16/20 at 18:00 Vancomycin HCl 1.25 gm/Sodium Chloride 250 ml @ 167 mls/hr Q24H IV Last administered on 05/16/20at 14:05; Start 05/16/20 at 14:00 Vancomycin HCl (Vancomycin Trough Level) 1 each 1X ONCE MC ; Start 05/18/20 at 13:30; Stop 05/18/20 at 13:31 Pantoprazole Sodium (PROTONIX VIAL for IV PUSH) 40 mg DAILYAC IVP ; Start 05/17/20 at 07:30 Ringer's Solution 1,000 ml @ 100 mls/hr Q10H IV Last administered on 05/16/20at 14:38; Start 05/16/20 at 14:45 Active Scripts Active Effient (Prasugrel Hcl) 10 Mg Tablet 10 Mg PO DAILYWBKFT 30 Days Atorvastatin Calcium 40 Mg Tablet 80 Mg PO QHS Reported Furosemide 20 Mg Tablet 1 Tab PO DAILY Bupropion Xl (Bupropion Hcl) 150 Mg Tab.er.24h 150 Mg PO BID Tramadol Hcl 50 Mg Tablet 50 Mg PO Q4HRS PRN Cyclobenzaprine Hcl 5 Mg Tablet 5 Mg PO TID PRN Montelukast Sodium Tablet (Montelukast Sodium) 10 Mg Tablet 10 Mg PO HS Spironolactone 25 Mg Tablet 1 Tab PO DAILY Ranitidine Hcl 150 Mg Capsule 150 Mg PO DAILY Naproxen 500 Mg Tablet 1 Tab PO BID 30 Days Abilify (Aripiprazole) 2 Mg Tablet 2 Mg PO DAILY Buspirone Hcl 15 Mg Tablet 15 Mg PO TID Tegretol (Carbamazepine) 200 Mg Tablet 200 Mg PO QHS Metoprolol Succinate ( Xl ) (Metoprolol Succinate) 25 Mg Tab.er.24h 12.5 Mg PO DAILY Klonopin (Clonazepam) 0.5 Mg Tablet 0.5 Mg PO PRN BID PRN Fish Oil 1,000 Mg Capsule ([place]-3 Fatty Acids/Fish Oil) 1 Each Capsule 1 Each PO TID Cymbalta (Duloxetine Hcl) 60 Mg Capsule.dr 120 Mg PO DAILY Loperamide (Loperamide Hcl) 2 Mg Capsule 2 Mg PO Zyrtec (Cetirizine Hcl) 10 Mg Tablet 1 Tab PO DAILY Zonisamide 100 Mg Capsule 100 Mg PO TID Protonix (Pantoprazole Sodium) 20 Mg Tablet.dr 40 Mg PO DAILY Nortriptyline Hcl 25 Mg Capsule 50 Mg PO HS Duoneb 0.5-3(2.5) Mg/3 Ml (Albuterol/Ipratropium) 3 Ml Ampul.neb 3 Ml NEB TID Multivitamins (Multivitamin) 1 Each Tablet 1 Tab PO DAILY Mirtazapine 15 Mg Tablet 30 Mg PO QHS Lisinopril 5 Mg Tablet 1 Tab PO DAILY Vitamin B-12 (Cyanocobalamin (Vitamin B-12)) 1,000 Mcg Tablet 1 Tab PO DAILY Vitamin D (Cholecalciferol (Vitamin D3)) 1,000 Unit Capsule 1 Cap PO DAILY Ascorbic Acid 500 Mg Tablet 500 Mg PO BID Voltaren (Diclofenac Sodium) 100 Gm Gel..gram. 100 Gm TP QID Levemir Flextouch (Insulin Detemir) 100 Unit/1 Ml Insuln.pen 36 Unit SQ BID Flonase Allergy Relief (Fluticasone Propionate) 9.9 Ml [place].susp 2 Spr NS DAILY Aspir 81 (Aspirin) 81 Mg Tablet.dr 81 Mg PO DAILY Ropinirole Hcl 1 Mg Tablet 1 Mg PO QHS Novolog (Insulin Aspart) 100 Unit/1 Ml Cartridge 6 Unit SQ TIDAC Vitals/I & O Vital Sign - Last 24 Hours 05/15/20 05/15/20 05/15/20 05/15/20 15:00 15:30 15:45 15:48 Pulse 109 Resp 28 B/P (MAP) 123/62 (82) 71/42 (52) 105/53 (70) Pulse Ox 95 92 O2 Delivery Nasal Cannula Nasal Cannula O2 Flow Rate 2.0 2.0 05/15/20 05/15/20 05/15/20 05/15/20 16:00 17:00 17:15 17:30 Pulse 108 Resp 36 B/P (MAP) 136/73 (94) 141/64 (89) 113/58 (76) Pulse Ox 91 O2 Delivery Nasal Cannula Nasal Cannula O2 Flow Rate 2.0 2.0 05/15/20 05/15/20 05/15/20 05/15/20 18:00 18:30 20:00 20:00 Pulse 102 Resp 38 22 B/P (MAP) 122/59 (80) 112/63 (79) Pulse Ox 91 91 O2 Delivery Nasal Cannula Nasal Cannula Nasal Cannula O2 Flow Rate 2.0 2.0 2.0 05/15/20 05/15/20 05/15/20 05/15/20 20:00 20:30 20:38 20:39 Temp 98.6 98.6 Pulse 100 Resp 28 32 B/P (MAP) 127/66 (86) Pulse Ox 91 89 91 91 O2 Delivery Nasal Cannula Nasal Cannula Nasal Cannula Nasal Cannula O2 Flow Rate 2.0 2.0 2.0 2.0 05/15/20 05/15/20 05/15/20 05/15/20 21:00 22:00 23:00 23:40 Pulse 102 102 103 Resp B/P (MAP) 155/73 (100) 167/70 (102) 159/66 (97) Pulse Ox 90 90 95 O2 Delivery Nasal Cannula Nasal Cannula Venturi Mask Venturi Mask O2 Flow Rate 2.0 2.0 3.0 3.0 05/16/20 05/16/20 05/16/20 05/16/20 00:00 01:00 02:00 03:00 Temp 98.3 98.3 Pulse 101 101 100 98 Resp B/P (MAP) 172/73 (106) 154/72 (99) 164/58 (93) 141/69 (93) Pulse Ox 93 95 96 96 O2 Delivery Venturi Mask Venturi Mask Venturi Mask Venturi Mask O2 Flow Rate 3.0 3.0 3.0 3.0 05/16/20 05/16/20 05/16/20 05/16/20 04:00 04:00 05:00 05:53 Temp 100.1 100.1 Pulse 98 101 97 Resp 28 28 28 B/P (MAP) 119/67 (84) 137/82 (100) 106/46 (66) Pulse Ox 93 96 94 O2 Delivery Venturi Mask Venturi Mask Venturi Mask Venturi Mask O2 Flow Rate 3.0 3.0 3.0 3.0 05/16/20 05/16/20 05/16/20 05/16/20 06:49 07:00 07:19 07:57 Pulse 99 Resp B/P (MAP) 103/47 (65) Pulse Ox 90 91 92 92 O2 Delivery Venturi Mask Venturi Mask Venturi Mask Venturi Mask O2 Flow Rate 3.0 3.0 3.0 3.0 05/16/20 05/16/20 05/16/20 05/16/20 08:00 08:00 09:00 09:30 Temp 98.6 98.6 Pulse 102 102 Resp B/P (MAP) 121/70 (87) 142/66 (91) 146/70 (95) Pulse Ox 90 91 O2 Delivery Venturi Mask Venturi Mask Venturi Mask O2 Flow Rate 3.0 3.0 3.0 05/16/20 05/16/20 05/16/20 05/16/20 10:00 11:00 11:35 12:00 Temp 98.4 98.4 Pulse 104 105 107 Resp B/P (MAP) 95/58 (70) 138/86 (103) 140/73 (95) Pulse Ox 92 90 90 O2 Delivery Venturi Mask Venturi Mask Venturi Mask Venturi Mask O2 Flow Rate 3.0 3.0 3.0 3.0 05/16/20 05/16/20 05/16/20 05/16/20 12:15 12:30 12:48 13:00 Pulse 102 Resp B/P (MAP) 90/56 (67) Pulse Ox 92 95 91 92 O2 Delivery Venturi Mask BiPAP/CPAP BiPAP/CPAP BiPAP/CPAP O2 Flow Rate 3.0 05/16/20 05/16/20 13:18 14:00 Pulse 91 Resp B/P (MAP) 77/43 (54) Pulse Ox 92 91 O2 Delivery BiPAP/CPAP BiPAP/CPAP Intake and Output 1/23/21 1/23/21 1/24/21 15:00 23:00 07:00 Intake Total 2152 ml 1776.05 ml 2290 ml Output Total 815 ml 400 ml 600 ml Balance 1337 ml 1376.05 ml 1690 ml Justicifation of Admission Dx: Justifications for Admission: Justification of Admission Dx: N/A TANNER COMER MD May 16, 2020 14:51
--- NOTE | 2020-05-16 16:36 | CARD ---
MR#: [id number] Date of Study: 05/16/2020 Ordering Physician: BENSON JAIME, Referring Physician: BENSON JAIME, Tech: Lashell Orozco DAWNA APPROVED REPORT EXAM: Two-dimensional and M-mode echocardiogram with Doppler and color Doppler. Other Information Quality : LimitedHR: 138bpm INDICATION Congestive Heart Failure Aortic Valve LVOT VTI 21.76cm TDI Lateral E' P. V6.02cm/sMedial E' P. V6.51cm/s Tricuspid Valve TR P. [id number] Peak Gr.35mmHg LEFT VENTRICLE Technically difficult study. The left ventricle is normal size. There is normal left ventricular wall thickness. Left ventricular systolic function appears to be mildly decreased. Estimated ejection fra ction is 45 to 50%. There is mild distal septal and apical hypokinesis. No left ventricle thrombus no john on this study. There is no left ventricular aneurysm. There is no mass noted in the left ventricl e. RIGHT VENTRICLE The right ventricle is normal size. The right ventricular systolic function is normal. ATRIA The left atrium is not well visualized. AORTIC VALVE The aortic valve is normal in structure and function. Doppler and Color Flow revealed no significant aortic regurgitation. There is no significant aortic valvular stenosis. There is no aortic valvular v egetation. MITRAL VALVE The mitral valve is normal in structure and function. There is no evidence of mitral valve prolapse. There is no mitral valve stenosis. Doppler and Color Flow revealed trace mitral valve regurgitation. TRICUSPID VALVE The tricuspid valve is normal. Doppler and Color Flow revealed mild tricuspid regurgitation. There is no tricuspid valve prolapse or vegetation. There is no tricuspid valve stenosis. PULMONIC VALVE The pulmonic valve is not visualized. Doppler and Color Flow revealed mild pulmonic valvular regurgit ation. GREAT VESSELS The aortic root is not visualized. The AO Ascending/Arch/Descending/Abd is not visualized. The Pulmon michael Artery is not visualized. The Pulmonary Vein is not visualized. The IVC was not visualized. PERICARDIAL EFFUSION There is no evidence of significant pericardial effusion. Critical Notification Critical Value: No <Conclusion> Technically difficult study. The left ventricle is normal size. Left ventricular systolic function appears to be mildly decreased. Estimated ejection fraction is 45 to 50%. There is mild distal septal and apical hypokinesis. Doppler and Color Flow revealed no significant aortic regurgitation. There is no significant aortic valvular stenosis. Doppler and Color Flow revealed trace mitral valve regurgitation. Doppler and Color Flow revealed mild tricuspid regurgitation. Signed by : Benson Jaime MD Electronically Approved : 05/16/2020 16:35:41
[2020-05-16] MEDS: ATORVASTATIN CALCIUM 40 MG TABLET. PO SCH (21:28)
[2020-05-16] MEDS: carBAMazepine 200 MG TABLET PO SCH (21:29)
[2020-05-17] VITALS (31 sets, daily range): BP systolic 57–165; BP diastolic 38–88
[2020-05-17] MEDS: IV RINGERS,LACTATED 1000ML 1,000 ML IV SCH
[2020-05-17] MEDS: INSULIN LISPRO 300 UNITS/3 ML VIAL. SQ SCH ×5 (00:07→23:40)
[2020-05-17] MEDS: fentaNYL PF VIAL 100 MCG/2 ML VIAL IVP PRN (00:15)
[2020-05-17 04:14] LABS: BASO % 0 % (0-3); EOS % 0 % (0-3); HEMATOCRIT 26.7 % (36.0-47.0); HEMOGLOBIN 8.7 g/dL (12.0-15.5); LYMPH # 1.5 x10^3/uL (1.0-4.8); LYMPH % 8 % (24-48); MEAN CORPUSCULAR HEMOGLOBIN 29 pg (25-35); MEAN CORPUSCULAR HGB CONC 33 g/dL (31-37); MEAN CORPUSCULAR VOLUME 89 fL (79-100); MONO # 0.5 x10^3/uL (0.0-1.1); MONO % 3 % (0-9); NEUT # 18.3 x10^3/uL (1.8-7.7); NEUT % 90 % (31-73); PLATELET COUNT 221 x10^3/uL (140-400); RED BLOOD COUNT 3.02 x10^6/uL (3.50-5.40); RED CELL DISTRIBUTION WIDTH 16.5 % (11.5-14.5); WHITE BLOOD COUNT 20.4 x10^3/uL (4.0-11.0)
[2020-05-17] MEDS: HEPARIN 25,000UTS/250ML PREMIX 250 ML IV PRN (04:17)
[2020-05-17 04:21] LABS: ALBUMIN 1.7 g/dL (3.4-5.0); CALCIUM 7.3 mg/dL (8.5-10.1); CREATININE 1.7 mg/dL (0.6-1.0); GFR 29.4; PHOSPHORUS 4.7 mg/dL (2.6-4.7); POTASSIUM 3.4 mmol/L (3.5-5.1)
[2020-05-17] MEDS: HYDROCORTISONE SOD SUCC/PF 100 MG/2 ML VIAL. IVP SCH ×3 (05:54→21:46)
[2020-05-17] MEDS: PIPERACILLIN/TAZOBACTAM 2.25 GM in IV NORMAL SALINE 50ML 50 ML IV SCH ×5 (05:54→23:41)
[2020-05-17] MEDS: VANCOMYCIN PER PHARMACY MC PRN (07:35)
[2020-05-17] MEDS: ASPIRIN CHEWABLE 81 MG TABLET. PO SCH (08:00)
[2020-05-17] MEDS: PRASUGREL 10 MG TABLET. PO SCH (08:00)
[2020-05-17] MEDS: IPRATRPIUM/ALBUTEROL 0.5/2.5MG 3 ML NEBU. NEB SCH ×3 (08:20→19:53)
[2020-05-17] MEDS: BUDESONIDE 0.5 MG/2 ML NEBU. NEB SCH ×2 (08:20→19:53)
[2020-05-17] MEDS: ONDANSETRON PF 4 MG/2 ML VIAL. IVP PRN (08:43)
[2020-05-17] MEDS: POLYETHYLENE GLYCOL 3350 17 GM PACKET. PO PRN (08:45)
--- NOTE | 2020-05-17 08:49 | PDOC ---
Infectious Disease Note Vital Sign Vital Signs Vital Signs Date Time Temp Pulse Resp B/P (MAP) Pulse Ox O2 Delivery O2 Flow Rate FiO2 05/17/20 08:20 90 BiPAP/CPAP 05/17/20 07:00 91 36 101/50 (67) 05/17/20 03:45 97.4 97.4 05/16/20 12:15 3.0 Labs Lab Laboratory Tests Test 05/16/20 09:01 05/16/20 11:10 05/16/20 12:05 05/16/20 13:20 Glucose (Fingerstick) 135 mg/dL (70-99) 204 mg/dL (70-99) Urine Collection Type Unknown Urine Color Yellow Urine Clarity Clear Urine pH 8.0 (<5.0-8.0) Urine Specific [place] 1.020 (1.000-1.030) Urine Protein 100 mg/dL (NEG-TRACE) Urine Glucose (UA) 500 mg/dL (NEG) Urine Ketones (Stick) Negative mg/dL (NEG) Urine Blood Moderate (NEG) Urine Nitrite Negative (NEG) Urine Bilirubin Negative (NEG) Urine Urobilinogen Dipstick 0.2 mg/dL (0.2 mg/dL) Urine Leukocyte Esterase Negative (NEG) Urine RBC 1-2 /HPF (0-2) Urine WBC Occ /HPF (0-4) Urine Bacteria 0 /HPF (0-FEW) Urine Yeast Present /HPF Urine Random Creatinine 40.7 mg/dL (Not Establ.) Urine Random Total Protein 114.5 mg/dL (Not Establ.) Urine Protein/Creatinine Ratio 2813 mg/g (0-200) Heparin Anti-Xa Act, Unfractionated 0.35 IU/mL (0.30-0.70) Test 05/16/20 17:40 05/16/20 20:00 05/17/20 00:05 05/17/20 03:30 Glucose (Fingerstick) 222 mg/dL (70-99) 220 mg/dL (70-99) Heparin Anti-Xa Act, Unfractionated 0.27 IU/mL (0.30-0.70) 0.45 IU/mL (0.30-0.70) White Blood Count 20.4 x10^3/uL (4.0-11.0) Red Blood Count 3.02 x10^6/uL (3.50-5.40) Hemoglobin 8.7 g/dL (12.0-15.5) Hematocrit 26.7 % (36.0-47.0) Mean Corpuscular Volume 89 fL (79-100) Mean Corpuscular Hemoglobin 29 pg (25-35) Mean Corpuscular Hemoglobin Concent 33 g/dL (31-37) Red Cell Distribution Width 16.5 % (11.5-14.5) Platelet Count 221 x10^3/uL (140-400) Neutrophils (%) (Auto) 90 % (31-73) Lymphocytes (%) (Auto) 8 % (24-48) Monocytes (%) (Auto) 3 % (0-9) Eosinophils (%) (Auto) 0 % (0-3) Basophils (%) (Auto) 0 % (0-3) Neutrophils # (Auto) 18.3 x10^3/uL (1.8-7.7) Lymphocytes # (Auto) 1.5 x10^3/uL (1.0-4.8) Monocytes # (Auto) 0.5 x10^3/uL (0.0-1.1) Eosinophils # (Auto) 0.0 x10^3/uL (0.0-0.7) Basophils # (Auto) 0.0 x10^3/uL (0.0-0.2) Sodium Level 125 mmol/L (136-145) Potassium Level 3.4 mmol/L (3.5-5.1) Chloride Level 90 mmol/L (98-107) Carbon Dioxide Level 24 mmol/L (21-32) Anion Gap 11 (6-14) Blood Urea Nitrogen 39 mg/dL (7-20) Creatinine 1.7 mg/dL (0.6-1.0) Estimated GFR (Cockcroft-Gault) 29.4 Glucose Level 207 mg/dL (70-99) Calcium Level 7.3 mg/dL (8.5-10.1) Phosphorus Level 4.7 mg/dL (2.6-4.7) Magnesium Level 2.5 mg/dL (1.8-2.4) Albumin 1.7 g/dL (3.4-5.0) Random Vancomycin Level 24.4 mcg/mL Test 05/17/20 05:53 Glucose (Fingerstick) 233 mg/dL (70-99) Micro Microbiology 05/15/20 Blood Culture - Preliminary, Resulted NO GROWTH AFTER 1 DAY Objective Assessment pt seen, consult dictated Plan Plan of Care / MASSIMO MIRELES MD May 17, 2020 08:49
[2020-05-17] MEDS: LORazepam 0.5 MG TABLET PO PRN (08:50)
[2020-05-17] MEDS: ASPIRIN ENTERIC COATED 81 MG TABLET.DR. PO SCH (08:50)
[2020-05-17] MEDS: ASCORBIC ACID 500 MG TABLET PO SCH ×2 (08:50→20:32)
[2020-05-17] MEDS: DOCUSATE SODIUM 100 MG CAPSULE. PO SCH (08:50)
[2020-05-17] MEDS: PANTOPRAZOLE IV PUSH 40 MG VIAL. IVP SCH (08:50)
[2020-05-17] MEDS: METOPROLOL SUCC 24HR ER 25 MG TAB.ER.24H. PO SCH (08:51)
[2020-05-17] MEDS: buPROPion XL 150 MG TAB.ER.24H. PO SCH ×2 (08:51→20:32)
[2020-05-17] MEDS: ARIPiprazole 2 MG TABLET PO SCH (08:51)
--- NOTE | 2020-05-17 09:13 | CONS ---
DATE OF CONSULTATION: 05/17/2020 REQUESTING PHYSICIAN: Dr. Archer. REASON FOR CONSULTATION: Antibiotic management for pneumonia and COPD exacerbation. HISTORY OF PRESENT ILLNESS: This is a 74-year-old female who came in with chest pain. The patient also was having respiratory distress. The patient says she has been short of breath for almost 2 weeks. The patient denied any fever. Denied any nausea, vomiting, or diarrhea. Denied any abdominal pain, urinary symptoms, headache, or visual symptoms. The patient was found to have a troponin leak, leukocytosis, lactic acidosis, renal insufficiency. Her chest x-ray showed pulmonary infiltrate, patchy opacities in the left greater than the right. The patient has been put on vancomycin and Zosyn and consult has been requested. The patient is alert, awake, although she is struggling to breathe. 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 No other complaints or problems. PAST MEDICAL HISTORY: Positive for COPD, obstructive sleep apnea, obesity, renal insufficiency, coronary artery disease, hypertension, hyperlipidemia. ALLERGIES: MULTIPLE MEDICATION ALLERGIES NOTED. No antibiotics. CURRENT MEDICATIONS: Reviewed. REVIEW OF SYSTEMS: As per HPI, all other systems reviewed, are negative. SOCIAL HISTORY: Negative for smoking, alcohol use or drug use. PHYSICAL EXAMINATION: GENERAL: Awake female, in mild respiratory distress. VITAL SIGNS: Temperature 97.4, pulse 91, respirations 23-36, blood pressure 101/50. HEENT: Both pupils are round and reacting. No conjunctival lesion. No lesion in the mouth. NECK: Supple. No JVP. No lymphadenopathy. LUNGS: Clear. HEART: S1, S2 regular. ABDOMEN: Benign. EXTREMITIES: No edema or cyanosis. SKIN: Unremarkable. NEUROLOGIC: The patient is neurologically alert, awake and appropriate. No focal neurologic deficit. LABORATORY DATA: White count is 20,000. BUN and creatinine is 39 and 1.7. Lactic acid at one point was 5.8 and glucose was up to 719. Troponin up to 4.5. Urinalysis unremarkable. Blood cultures so far negative. Chest x-ray showed patchy opacity. CTA of the chest and abdomen was unremarkable. IMPRESSION: 1. Respiratory failure. 2. Coronary artery disease with acute myocardial infarction. 3. Pulmonary infiltrate, pneumonia versus congestive heart failure. 4. Chronic obstructive pulmonary disease exacerbation. 5. Acute kidney injury. 6. Hypertension. 7. Leukocytosis. RECOMMENDATIONS: We would continue Zosyn, change vancomycin to Zyvox. Supportive care. We will follow the cultures and adjust. Thank you very much, Dr. Archer, for giving me the opportunity to participate in this patient's care. MASSIMO MIRELES MD DR: SMITHA/sarmad JOB#: [id number] / [id number]
[2020-05-17] MEDS ORDERED: IV NORMAL SALINE 500ML BAG 500 ML IV PRN (09:45)
[2020-05-17] MEDS ORDERED: ATROPINE 0.5 MG/5 ML DISP.SYRINGE. IV PRN (09:45)
[2020-05-17] MEDS: DEXMEDETOMIDINE 400 MCG in IV NORMAL SALINE 100ML 96 ML IV PRN ×2 (09:54→14:16)
[2020-05-17] MEDS: IV NORMAL SALINE 1000ML BAG 1,000 ML IV SCH ×2 (10:48→20:33)
[2020-05-17] MEDS ORDERED: POTASSIUM CHLORIDE 20 MEQ TABLET.ER. PO ONE ×2 (11:00→16:30)
[2020-05-17] MEDS ORDERED: FUROSEMIDE 40 MG/4 ML VIAL. IVP ONE ×3 (11:00→16:30)
--- NOTE | 2020-05-17 11:02 | PDOC ---
MARLEEN MCGREGOR DEVICE PROCESSING ENGINEER 05/17/20 1102: CARDIO Progress Notes Date and Time Date of Service 05/17/20 Time of Evaluation 1050 Subjective Subjective: Other (SOA, requiring bipap. Reports some abd "hernia" pain) Vitals Vitals Vital Signs Date Time Temp Pulse Resp B/P (MAP) Pulse Ox O2 Delivery O2 Flow Rate FiO2 05/17/20 10:00 93 20 84/50 (61) 94 BiPAP/CPAP 05/17/20 08:00 98.6 98.6 05/16/20 12:15 3.0 Weight Weight [ ] Input and Output Intake and Output Intake and Output 05/17/20 07:00 Intake Total 4371 ml Output Total 995 ml Balance 3376 ml Intake Oral 600 ml IV Total 3771 ml Output Urine Total 995 ml # Bowel Movements 3 Laboratory Labs Laboratory Tests Test 05/16/20 11:10 05/16/20 12:05 05/16/20 13:20 05/16/20 17:40 Urine Collection Type Unknown Urine Color Yellow Urine Clarity Clear Urine pH 8.0 (<5.0-8.0) Urine Specific [place] 1.020 (1.000-1.030) Urine Protein 100 mg/dL (NEG-TRACE) Urine Glucose (UA) 500 mg/dL (NEG) Urine Ketones (Stick) Negative mg/dL (NEG) Urine Blood Moderate (NEG) Urine Nitrite Negative (NEG) Urine Bilirubin Negative (NEG) Urine Urobilinogen Dipstick 0.2 mg/dL (0.2 mg/dL) Urine Leukocyte Esterase Negative (NEG) Urine RBC 1-2 /HPF (0-2) Urine WBC Occ /HPF (0-4) Urine Bacteria 0 /HPF (0-FEW) Urine Yeast Present /HPF Urine Random Creatinine 40.7 mg/dL (Not Establ.) Urine Random Total Protein 114.5 mg/dL (Not Establ.) Urine Protein/Creatinine Ratio 2813 mg/g (0-200) Glucose (Fingerstick) 204 mg/dL (70-99) 222 mg/dL (70-99) Heparin Anti-Xa Act, Unfractionated 0.35 IU/mL (0.30-0.70) Test 05/16/20 20:00 05/17/20 00:05 05/17/20 03:30 05/17/20 05:53 Heparin Anti-Xa Act, Unfractionated 0.27 IU/mL (0.30-0.70) 0.45 IU/mL (0.30-0.70) Glucose (Fingerstick) 220 mg/dL (70-99) 233 mg/dL (70-99) White Blood Count 20.4 x10^3/uL (4.0-11.0) Red Blood Count 3.02 x10^6/uL (3.50-5.40) Hemoglobin 8.7 g/dL (12.0-15.5) Hematocrit 26.7 % (36.0-47.0) Mean Corpuscular Volume 89 fL (79-100) Mean Corpuscular Hemoglobin 29 pg (25-35) Mean Corpuscular Hemoglobin Concent 33 g/dL (31-37) Red Cell Distribution Width 16.5 % (11.5-14.5) Platelet Count 221 x10^3/uL (140-400) Neutrophils (%) (Auto) 90 % (31-73) Lymphocytes (%) (Auto) 8 % (24-48) Monocytes (%) (Auto) 3 % (0-9) Eosinophils (%) (Auto) 0 % (0-3) Basophils (%) (Auto) 0 % (0-3) Neutrophils # (Auto) 18.3 x10^3/uL (1.8-7.7) Lymphocytes # (Auto) 1.5 x10^3/uL (1.0-4.8) Monocytes # (Auto) 0.5 x10^3/uL (0.0-1.1) Eosinophils # (Auto) 0.0 x10^3/uL (0.0-0.7) Basophils # (Auto) 0.0 x10^3/uL (0.0-0.2) Sodium Level 125 mmol/L (136-145) Potassium Level 3.4 mmol/L (3.5-5.1) Chloride Level 90 mmol/L (98-107) Carbon Dioxide Level 24 mmol/L (21-32) Anion Gap 11 (6-14) Blood Urea Nitrogen 39 mg/dL (7-20) Creatinine 1.7 mg/dL (0.6-1.0) Estimated GFR (Cockcroft-Gault) 29.4 Glucose Level 207 mg/dL (70-99) Calcium Level 7.3 mg/dL (8.5-10.1) Phosphorus Level 4.7 mg/dL (2.6-4.7) Magnesium Level 2.5 mg/dL (1.8-2.4) Albumin 1.7 g/dL (3.4-5.0) Random Vancomycin Level 24.4 mcg/mL Microbiology Micro Microbiology 05/15/20 Blood Culture - Preliminary, Resulted NO GROWTH AFTER 1 DAY Physical Exam HEENT: Neck Supple W Full Motion Chest: Symmetric LUNGS: Other (diminished, on BiPAP) Heart: S1S2, RRR, other (distant heart tones ) Extremities: Other (1+ bilateral LE edema ) Neurology: alert, oriented, follow commands Assessment Assessment 1. Acute respiratory failure with a/c CHF, AECOPD, and ? PNA. Requiring BiPAP 2. Acute on chronic systolic CHF 3. Abdominal pain; CT without acute findings 4. NSTEMI; trop peak 45. CP free. On heparin gtt 5. Ischemic cardiomyopathy; Echo showed LVEF 45-50% 6. CAD s/p PCI/stent; Cath 06/12- LAD with ostial 50% stenosis, mid 100% ISR, and distal 90% ISR. s/p successful PTCA of the LAD. Given the small caliber of the vessels, repeat stenting was deferred. 7. Leukocytosis, lactic acidosis, periodic fever. ? sepsis 8. H/o hypertension; low end requiring pressor support 9. Hyperlipidemia; LDL 25 10. AVIVA on CKD; improved 11. Hypokalemia; replaced Recommendations Diuresis with close monitoring of renal function Secondary prevention Discontinue heparin gtt, has been treated > 48hrs Continue ASA, Effient, statin. Hold metoprolol as warranted with hypotension Follow cultures Supportive care Justicifation of Admission Dx: Justifications for Admission: Justification of Admission Dx: N/A SHARYN BARFIELD MD 05/17/209: CARDIO Progress Notes Plan Plan Pt. seen and examined. 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 Case discussed with Dr. Beckham. She has severe ischemic heart disease. She had a similar presentation last year. Likely mixed ischemic and septic picture. Will discuss with family in a.m. about repeat cath and consider PCI/POBA again to help improve HF symptoms and resp failure. Thanks MARLEEN MCGREGOR APRN May 17, 2020 11:02 SHARYN BARFIELD MD May 17, 2020 21:44
--- NOTE | 2020-05-17 11:53 | PDOC ---
Renal-Progress Notes Subjective Notes Notes NONE History of Present Illness Hx of present illness NO ACUTE CHANGES Vitals Vitals Vital Signs Date Time Temp Pulse Resp B/P (MAP) Pulse Ox O2 Delivery O2 Flow Rate FiO2 05/17/20 10:00 93 20 84/50 (61) 94 BiPAP/CPAP 05/17/20 08:00 98.6 98.6 05/16/20 12:15 3.0 Weight Weight [ ] I.O. Intake and Output Intake and Output 05/17/20 07:00 Intake Total 4371 ml Output Total 995 ml Balance 3376 ml Intake Oral 600 ml IV Total 3771 ml Output Urine Total 995 ml # Bowel Movements 3 Labs Labs Laboratory Tests Test 05/16/20 12:05 05/16/20 13:20 05/16/20 17:40 05/16/20 20:00 Glucose (Fingerstick) 204 mg/dL (70-99) 222 mg/dL (70-99) Heparin Anti-Xa Act, Unfractionated 0.35 IU/mL (0.30-0.70) 0.27 IU/mL (0.30-0.70) Test 05/17/20 00:05 05/17/20 03:30 05/17/20 05:53 05/17/20 09:30 Glucose (Fingerstick) 220 mg/dL (70-99) 233 mg/dL (70-99) White Blood Count 20.4 x10^3/uL (4.0-11.0) Red Blood Count 3.02 x10^6/uL (3.50-5.40) Hemoglobin 8.7 g/dL (12.0-15.5) Hematocrit 26.7 % (36.0-47.0) Mean Corpuscular Volume 89 fL (79-100) Mean Corpuscular Hemoglobin 29 pg (25-35) Mean Corpuscular Hemoglobin Concent 33 g/dL (31-37) Red Cell Distribution Width 16.5 % (11.5-14.5) Platelet Count 221 x10^3/uL (140-400) Neutrophils (%) (Auto) 90 % (31-73) Lymphocytes (%) (Auto) 8 % (24-48) Monocytes (%) (Auto) 3 % (0-9) Eosinophils (%) (Auto) 0 % (0-3) Basophils (%) (Auto) 0 % (0-3) Neutrophils # (Auto) 18.3 x10^3/uL (1.8-7.7) Lymphocytes # (Auto) 1.5 x10^3/uL (1.0-4.8) Monocytes # (Auto) 0.5 x10^3/uL (0.0-1.1) Eosinophils # (Auto) 0.0 x10^3/uL (0.0-0.7) Basophils # (Auto) 0.0 x10^3/uL (0.0-0.2) Heparin Anti-Xa Act, Unfractionated 0.45 IU/mL (0.30-0.70) 0.40 IU/mL (0.30-0.70) Sodium Level 125 mmol/L (136-145) Potassium Level 3.4 mmol/L (3.5-5.1) Chloride Level 90 mmol/L (98-107) Carbon Dioxide Level 24 mmol/L (21-32) Anion Gap 11 (6-14) Blood Urea Nitrogen 39 mg/dL (7-20) Creatinine 1.7 mg/dL (0.6-1.0) Estimated GFR (Cockcroft-Gault) 29.4 Glucose Level 207 mg/dL (70-99) Calcium Level 7.3 mg/dL (8.5-10.1) Phosphorus Level 4.7 mg/dL (2.6-4.7) Magnesium Level 2.5 mg/dL (1.8-2.4) Albumin 1.7 g/dL (3.4-5.0) Random Vancomycin Level 24.4 mcg/mL Micro Micro Microbiology 05/15/20 Blood Culture - Preliminary, Resulted NO GROWTH AFTER 1 DAY Review of Systems Constitutional: yes: other (UNABLE TO OBTAIN) Physical Exam General Appearance: no apparent distress Skin: warm Respiratory: decreased breath sounds Heart: S1S2 Abdomen: soft, bowel sounds present Genitourinary: bladder flat Extremities: pulses present Neurology: confused Assessment Assessment IMP AVIVA-IMPROVING WITH CR DOWN TO 1.7 FROM 2.5 HYPOKALEMIA HYPONATREMIA ACUTE RESP FAILURE PLAN REPLACE K OSMOLALITY PENDING MAY NEED LOOP DIURETICS WILL FOLLOW ORION ARAYA MD May 17, 2020 11:53
[2020-05-17 11:55] LABS: BASE EXCESS ABG -1 mmol/L (-3-3); HCO3 ABG 22 mmol/L (21-28); PCO2 ABG 30 mmHg (35-46); PO2 ABG 89 mmHg (65-108); SAT O2 ABG 96 % (92-99)
[2020-05-17 12:06] LABS: FIO2 ABG 50%/ 22/6 R=16
--- NOTE | 2020-05-17 12:12 | PDOC ---
PULMONARY PROGRESS NOTES DATE: 05/17/20 TIME: 12:08 Subjective on bipap, 50%FIO2 Vitals Vital Signs Date Time Temp Pulse Resp B/P (MAP) Pulse Ox O2 Delivery O2 Flow Rate FiO2 05/17/20 11:42 98 BiPAP/CPAP 05/17/20 10:00 93 20 84/50 (61) 05/17/20 08:00 98.6 98.6 05/16/20 12:15 3.0 General: Alert, Mild Distress Lungs: Other (decrease bs) Cardiovascular: S1, S2 Abdomen: Soft, Other Extremities: Other (trace edema) Skin: Warm Labs Laboratory Tests Test 05/15/20 12:09 05/15/20 12:31 05/15/20 13:32 05/15/20 14:37 Heparin Anti-Xa Act, Unfractionated 0.44 IU/mL (0.30-0.70) Sodium Level 127 mmol/L (136-145) Potassium Level 3.8 mmol/L (3.5-5.1) Chloride Level 95 mmol/L (98-107) Carbon Dioxide Level 17 mmol/L (21-32) Anion Gap 15 (6-14) Blood Urea Nitrogen 35 mg/dL (7-20) Creatinine 2.3 mg/dL (0.6-1.0) Estimated GFR (Cockcroft-Gault) 20.7 Glucose Level 461 mg/dL (70-99) Calcium Level 7.6 mg/dL (8.5-10.1) Creatine Kinase 484 U/L (26-192) Glucose (Fingerstick) 478 mg/dL (70-99) 441 mg/dL (70-99) 419 mg/dL (70-99) Test 05/15/20 15:30 05/15/20 16:48 05/15/20 17:56 05/15/20 19:03 Glucose (Fingerstick) 305 mg/dL (70-99) 301 mg/dL (70-99) 270 mg/dL (70-99) 227 mg/dL (70-99) Test 05/15/20 20:04 05/15/20 21:14 05/15/20 22:09 05/15/20 23:01 Glucose (Fingerstick) 168 mg/dL (70-99) 177 mg/dL (70-99) 129 mg/dL (70-99) 152 mg/dL (70-99) Test 05/16/20 00:08 05/16/20 01:06 05/16/20 02:10 05/16/20 03:14 Glucose (Fingerstick) 157 mg/dL (70-99) 98 mg/dL (70-99) 97 mg/dL (70-99) 100 mg/dL (70-99) Test 05/16/20 04:22 05/16/20 05:36 05/16/20 05:45 05/16/20 06:40 Glucose (Fingerstick) 111 mg/dL (70-99) 108 mg/dL (70-99) 107 mg/dL (70-99) White Blood Count 23.9 x10^3/uL (4.0-11.0) Red Blood Count 3.60 x10^6/uL (3.50-5.40) Hemoglobin 10.1 g/dL (12.0-15.5) Hematocrit 31.9 % (36.0-47.0) Mean Corpuscular Volume 89 fL (79-100) Mean Corpuscular Hemoglobin 28 pg (25-35) Mean Corpuscular Hemoglobin Concent 32 g/dL (31-37) Red Cell Distribution Width 16.7 % (11.5-14.5) Platelet Count 277 x10^3/uL (140-400) Neutrophils (%) (Auto) 89 % (31-73) Lymphocytes (%) (Auto) 9 % (24-48) Monocytes (%) (Auto) 2 % (0-9) Eosinophils (%) (Auto) 0 % (0-3) Basophils (%) (Auto) 0 % (0-3) Neutrophils # (Auto) 21.2 x10^3/uL (1.8-7.7) Lymphocytes # (Auto) 2.1 x10^3/uL (1.0-4.8) Monocytes # (Auto) 0.5 x10^3/uL (0.0-1.1) Eosinophils # (Auto) 0.0 x10^3/uL (0.0-0.7) Basophils # (Auto) 0.0 x10^3/uL (0.0-0.2) Heparin Anti-Xa Act, Unfractionated 0.17 IU/mL (0.30-0.70) Sodium Level 127 mmol/L (136-145) Potassium Level 3.4 mmol/L (3.5-5.1) Chloride Level 91 mmol/L (98-107) Carbon Dioxide Level 23 mmol/L (21-32) Anion Gap 13 (6-14) Blood Urea Nitrogen 32 mg/dL (7-20) Creatinine 1.5 mg/dL (0.6-1.0) Estimated GFR (Cockcroft-Gault) 33.9 BUN/Creatinine Ratio 21 (6-20) Glucose Level 100 mg/dL (70-99) Calcium Level 7.5 mg/dL (8.5-10.1) Phosphorus Level 4.2 mg/dL (2.6-4.7) Magnesium Level 2.5 mg/dL (1.8-2.4) Total Bilirubin 0.4 mg/dL (0.2-1.0) Aspartate Amino Transf (AST/SGOT) 89 U/L (15-37) Alanine Aminotransferase (ALT/SGPT) 34 U/L (14-59) Alkaline Phosphatase 204 U/L (46-116) Total Protein 5.6 g/dL (6.4-8.2) Albumin 1.8 g/dL (3.4-5.0) Albumin/Globulin Ratio 0.5 (1.0-1.7) Random Vancomycin Level 16.3 mcg/mL Test 05/16/20 09:01 05/16/20 11:10 05/16/20 12:05 05/16/20 13:20 Glucose (Fingerstick) 135 mg/dL (70-99) 204 mg/dL (70-99) Urine Collection Type Unknown Urine Color Yellow Urine Clarity Clear Urine pH 8.0 (<5.0-8.0) Urine Specific [place] 1.020 (1.000-1.030) Urine Protein 100 mg/dL (NEG-TRACE) Urine Glucose (UA) 500 mg/dL (NEG) Urine Ketones (Stick) Negative mg/dL (NEG) Urine Blood Moderate (NEG) Urine Nitrite Negative (NEG) Urine Bilirubin Negative (NEG) Urine Urobilinogen Dipstick 0.2 mg/dL (0.2 mg/dL) Urine Leukocyte Esterase Negative (NEG) Urine RBC 1-2 /HPF (0-2) Urine WBC Occ /HPF (0-4) Urine Bacteria 0 /HPF (0-FEW) Urine Yeast Present /HPF Urine Random Creatinine 40.7 mg/dL (Not Establ.) Urine Random Total Protein 114.5 mg/dL (Not Establ.) Urine Protein/Creatinine Ratio 2813 mg/g (0-200) Heparin Anti-Xa Act, Unfractionated 0.35 IU/mL (0.30-0.70) Test 05/16/20 17:40 05/16/20 20:00 05/17/20 00:05 05/17/20 03:30 Glucose (Fingerstick) 222 mg/dL (70-99) 220 mg/dL (70-99) Heparin Anti-Xa Act, Unfractionated 0.27 IU/mL (0.30-0.70) 0.45 IU/mL (0.30-0.70) White Blood Count 20.4 x10^3/uL (4.0-11.0) Red Blood Count 3.02 x10^6/uL (3.50-5.40) Hemoglobin 8.7 g/dL (12.0-15.5) Hematocrit 26.7 % (36.0-47.0) Mean Corpuscular Volume 89 fL (79-100) Mean Corpuscular Hemoglobin 29 pg (25-35) Mean Corpuscular Hemoglobin Concent 33 g/dL (31-37) Red Cell Distribution Width 16.5 % (11.5-14.5) Platelet Count 221 x10^3/uL (140-400) Neutrophils (%) (Auto) 90 % (31-73) Lymphocytes (%) (Auto) 8 % (24-48) Monocytes (%) (Auto) 3 % (0-9) Eosinophils (%) (Auto) 0 % (0-3) Basophils (%) (Auto) 0 % (0-3) Neutrophils # (Auto) 18.3 x10^3/uL (1.8-7.7) Lymphocytes # (Auto) 1.5 x10^3/uL (1.0-4.8) Monocytes # (Auto) 0.5 x10^3/uL (0.0-1.1) Eosinophils # (Auto) 0.0 x10^3/uL (0.0-0.7) Basophils # (Auto) 0.0 x10^3/uL (0.0-0.2) Sodium Level 125 mmol/L (136-145) Potassium Level 3.4 mmol/L (3.5-5.1) Chloride Level 90 mmol/L (98-107) Carbon Dioxide Level 24 mmol/L (21-32) Anion Gap 11 (6-14) Blood Urea Nitrogen 39 mg/dL (7-20) Creatinine 1.7 mg/dL (0.6-1.0) Estimated GFR (Cockcroft-Gault) 29.4 Glucose Level 207 mg/dL (70-99) Calcium Level 7.3 mg/dL (8.5-10.1) Phosphorus Level 4.7 mg/dL (2.6-4.7) Magnesium Level 2.5 mg/dL (1.8-2.4) Albumin 1.7 g/dL (3.4-5.0) Random Vancomycin Level 24.4 mcg/mL Test 05/17/20 05:53 05/17/20 09:30 05/17/20 11:45 Glucose (Fingerstick) 233 mg/dL (70-99) Heparin Anti-Xa Act, Unfractionated 0.40 IU/mL (0.30-0.70) O2 Saturation 96 % (92-99) Arterial Blood pH 7.49 (7.35-7.45) Arterial Blood pCO2 at Patient Temp 30 mmHg (35-46) Arterial Blood pO2 at Patient Temp 89 mmHg (65-108) Arterial Blood HCO3 22 mmol/L (21-28) Arterial Blood Base Excess -1 mmol/L (-3-3) FiO2 50%/ 22/6 r=16 Laboratory Tests Test 05/16/20 13:20 05/16/20 17:40 05/16/20 20:00 05/17/20 00:05 Heparin Anti-Xa Act, Unfractionated 0.35 IU/mL (0.30-0.70) 0.27 IU/mL (0.30-0.70) Glucose (Fingerstick) 222 mg/dL (70-99) 220 mg/dL (70-99) Test 05/17/20 03:30 05/17/20 05:53 05/17/20 09:30 05/17/20 11:45 White Blood Count 20.4 x10^3/uL (4.0-11.0) Red Blood Count 3.02 x10^6/uL (3.50-5.40) Hemoglobin 8.7 g/dL (12.0-15.5) Hematocrit 26.7 % (36.0-47.0) Mean Corpuscular Volume 89 fL (79-100) Mean Corpuscular Hemoglobin 29 pg (25-35) Mean Corpuscular Hemoglobin Concent 33 g/dL (31-37) Red Cell Distribution Width 16.5 % (11.5-14.5) Platelet Count 221 x10^3/uL (140-400) Neutrophils (%) (Auto) 90 % (31-73) Lymphocytes (%) (Auto) 8 % (24-48) Monocytes (%) (Auto) 3 % (0-9) Eosinophils (%) (Auto) 0 % (0-3) Basophils (%) (Auto) 0 % (0-3) Neutrophils # (Auto) 18.3 x10^3/uL (1.8-7.7) Lymphocytes # (Auto) 1.5 x10^3/uL (1.0-4.8) Monocytes # (Auto) 0.5 x10^3/uL (0.0-1.1) Eosinophils # (Auto) 0.0 x10^3/uL (0.0-0.7) Basophils # (Auto) 0.0 x10^3/uL (0.0-0.2) Heparin Anti-Xa Act, Unfractionated 0.45 IU/mL (0.30-0.70) 0.40 IU/mL (0.30-0.70) Sodium Level 125 mmol/L (136-145) Potassium Level 3.4 mmol/L (3.5-5.1) Chloride Level 90 mmol/L (98-107) Carbon Dioxide Level 24 mmol/L (21-32) Anion Gap 11 (6-14) Blood Urea Nitrogen 39 mg/dL (7-20) Creatinine 1.7 mg/dL (0.6-1.0) Estimated GFR (Cockcroft-Gault) 29.4 Glucose Level 207 mg/dL (70-99) Calcium Level 7.3 mg/dL (8.5-10.1) Phosphorus Level 4.7 mg/dL (2.6-4.7) Magnesium Level 2.5 mg/dL (1.8-2.4) Albumin 1.7 g/dL (3.4-5.0) Random Vancomycin Level 24.4 mcg/mL Glucose (Fingerstick) 233 mg/dL (70-99) O2 Saturation 96 % (92-99) Arterial Blood pH 7.49 (7.35-7.45) Arterial Blood pCO2 at Patient Temp 30 mmHg (35-46) Arterial Blood pO2 at Patient Temp 89 mmHg (65-108) Arterial Blood HCO3 22 mmol/L (21-28) Arterial Blood Base Excess -1 mmol/L (-3-3) FiO2 50%/ 12/10 r=16 Medications Active Scripts Medications Dose Route/Sig Max Daily Dose Days Date Category Effient (Prasugrel Hcl) 10 Mg Tablet 10 Mg PO [id number] 30 06/10/19 Rx Furosemide 20 Mg Tablet 1 Tab PO DAILY 04/24/19 Reported Bupropion Xl (Bupropion Hcl) 150 Mg Tab.er.24h 150 Mg PO BID 04/24/19 Reported Tramadol Hcl 50 Mg Tablet 50 Mg PO Q4HRS PRN 04/24/19 Reported Cyclobenzaprine Hcl 5 Mg Tablet 5 Mg PO TID PRN 04/24/19 Reported Montelukast Sodium Tablet (Montelukast Sodium) 10 Mg Tablet 10 Mg PO HS 04/24/19 Reported Spironolactone 25 Mg Tablet 1 Tab PO DAILY 04/24/19 Reported Ranitidine Hcl 150 Mg Capsule 150 Mg PO DAILY 04/24/19 Reported Naproxen 500 Mg Tablet 1 Tab PO BID 30 04/24/19 Reported Atorvastatin Calcium 40 Mg Tablet 80 Mg PO QHS 12/02/18 Rx Abilify (Aripiprazole) 2 Mg Tablet 2 Mg PO DAILY 11/30/18 Reported Buspirone Hcl 15 Mg Tablet 15 Mg PO TID 11/30/18 Reported Tegretol (Carbamazepine) 200 Mg Tablet 200 Mg PO QHS 11/08/18 Reported Metoprolol Succinate ( Xl ) (Metoprolol Succinate) 25 Mg Tab.er.24h 12.5 Mg PO DAILY 11/08/18 Reported Klonopin (Clonazepam) 0.5 Mg Tablet 0.5 Mg PO PRN BID PRN 01/08/18 Reported Fish Oil 1,000 Mg Capsule ([place]roy-3 Fatty Acids/Fish Oil) 1 Each Capsule 1 Each PO TID 01/08/18 Reported Cymbalta (Duloxetine Hcl) 60 Mg Capsule.dr 120 Mg PO DAILY 01/08/18 Reported Loperamide (Loperamide Hcl) 2 Mg Capsule 2 Mg PO 01/04/18 Reported Zyrtec (Cetirizine Hcl) 10 Mg Tablet 1 Tab PO DAILY 01/04/18 Reported Zonisamide 100 Mg Capsule 100 Mg PO TID 12/14/17 Reported Protonix (Pantoprazole Sodium) 20 Mg Tablet.dr 40 Mg PO DAILY 12/14/17 Reported Nortriptyline Hcl 25 Mg Capsule 50 Mg PO HS 12/14/17 Reported Duoneb 0.5-3(2.5) Mg/3 Ml (Albuterol/Ipratropium) 3 Ml Ampul.neb 3 Ml NEB TID 12/14/17 Reported Multivitamins (Multivitamin) 1 Each Tablet 1 Tab PO DAILY 06/25/17 Reported Mirtazapine 15 Mg Tablet 30 Mg PO QHS 06/25/17 Reported Lisinopril 5 Mg Tablet 1 Tab PO DAILY 06/25/17 Reported Vitamin B-12 (Cyanocobalamin (Vitamin B-12)) 1,000 Mcg Tablet 1 Tab PO DAILY 06/25/17 Reported Vitamin D (Cholecalciferol (Vitamin D3)) 1,000 Unit Capsule 1 Cap PO DAILY 06/25/17 Reported Ascorbic Acid 500 Mg Tablet 500 Mg PO BID 06/25/17 Reported Voltaren (Diclofenac Sodium) 100 Gm Gel..gram. 100 Gm TP QID 02/02/15 Reported Levemir Flextouch (Insulin Detemir) 100 Unit/1 Ml Insuln.pen 36 Unit SQ BID 02/02/15 Reported Flonase Allergy Relief (Fluticasone Propionate) 9.9 Ml [place].susp 2 Spr NS DAILY 02/01/15 Reported Aspir 81 (Aspirin) 81 Mg Tablet.dr 81 Mg PO DAILY 09/03/13 Reported Ropinirole Hcl 1 Mg Tablet 1 Mg PO QHS 09/03/13 Reported Novolog (Insulin Aspart) 100 Unit/1 Ml Cartridge 6 Unit SQ TIDAC 09/03/13 Reported Impression . 1. Acute hypoxemic respiratory failure, multifactorial in etiology including shock, myocardial infarction, chronic obstructive pulmonary disease with acute exacerbation, no pulmonary embolism. 2. Abnormal CT of the chest./basal atelectasis 3. Elevated troponin, non-ST elevation myocardial infarction. 4. Shock ,cardiac 5. Acute kidney injury. 6. Chronic kidney disease. 7. Chest pain. 8. Chronic obstructive pulmonary disease with acute exacerbation. 9. Obesity, obstructive sleep apnea-hypopnea syndrome. Plan . 1. Titrate FiO2 to keep O2 saturation 92%. 2. BiPAP We will monitor her respiratory status very closely. She may require intubation. 3. Continue Solu-Cortef. 4. Continue antibiotic. 5. Follow up cultures. 6. Cardiology rec 7. Nephrology rec 8. Continue bronchodilator. 9. Inhaled corticosteroid. 10. Protonix for stress ulcer prophylaxis. 11. The findings and recommendations were discussed with the patient and RN. cct 30 min BRAULIO SMITH MD May 17, 2020 12:11
[2020-05-17] MEDS: NOREPINEPHRINE VIAL 32 MG in IV DEXTROSE 5% 250 ML IV PRN (13:35)
--- NOTE | 2020-05-17 14:02 | PDOC ---
[facility] PROGRESS NOTE Date of Service DOS: DATE: 05/17/20 TIME: 14:00 Chief Complaint Chief Complaint sepsis, severe sepsis, shock Acute hypoxemic respiratory failure, on COPD and ARIANNA currently on BiPAP, low threshold for intubation COVID risk, pt initial swab is negative acute acidosis on CKD 4, renal failure, DKA, acute acidosis with hyperosmolar syndrome, weaned off of insulin drip troponinemia, NSTEMI 2, demand, obese, BMI 39, some pickwickian habitus constipation, on chronic abdominal hernia, with abdominal pain History of Present Illness History of Present Illness 05/17/2020 No acute events overnight. Patient remains afebrile. Tolerating BiPAP for now and saturating 100%.> 50% time spent in patient chart, labs, and imaging review and in discussion with RN and SW 74 year old female admit for chest pain last night, pain started acutely while walking her dog, mid chest pain with tightness. she came by ambulance, and was newly hypoxic to mid 80's in the ER. she has a Hx CAD and stents, CV team called for EKG change, Dr. Joshua saw the pt in the ER, admit to ICU, broad spectrum abx given, CT angio done for pain, showed large amt of stool, no clear PNA Vitals/I&O Vitals/I&O: Vital Signs Date Time Temp Pulse Resp B/P (MAP) Pulse Ox O2 Delivery O2 Flow Rate FiO2 05/17/20 12:00 Bi-pap 05/17/20 11:42 98 05/17/20 10:00 93 20 84/50 (61) 05/17/20 08:00 98.6 98.6 05/16/20 12:15 3.0 I & O 05/16/20 05/16/20 05/17/20 15:00 23:00 07:00 Intake Total 300 ml 1933 ml 2138 ml Output Total 455 ml 245 ml 295 ml Balance -155 ml 1688 ml 1843 ml Physical Exam Physical Exam: Currently on BiPAP and tolerating General: Alert, Cooperative, mild distress Heart: Regular rate Lungs: Other (decrease bs) Abdomen: Normal bowel sounds Extremities: No cyanosis, No edema Skin: No rashes Labs Labs: Laboratory Tests Test 05/16/20 17:40 05/16/20 20:00 05/17/20 00:05 05/17/20 03:30 Glucose (Fingerstick) 222 mg/dL (70-99) 220 mg/dL (70-99) Heparin Anti-Xa Act, Unfractionated 0.27 IU/mL (0.30-0.70) 0.45 IU/mL (0.30-0.70) White Blood Count 20.4 x10^3/uL (4.0-11.0) Red Blood Count 3.02 x10^6/uL (3.50-5.40) Hemoglobin 8.7 g/dL (12.0-15.5) Hematocrit 26.7 % (36.0-47.0) Mean Corpuscular Volume 89 fL (79-100) Mean Corpuscular Hemoglobin 29 pg (25-35) Mean Corpuscular Hemoglobin Concent 33 g/dL (31-37) Red Cell Distribution Width 16.5 % (11.5-14.5) Platelet Count 221 x10^3/uL (140-400) Neutrophils (%) (Auto) 90 % (31-73) Lymphocytes (%) (Auto) 8 % (24-48) Monocytes (%) (Auto) 3 % (0-9) Eosinophils (%) (Auto) 0 % (0-3) Basophils (%) (Auto) 0 % (0-3) Neutrophils # (Auto) 18.3 x10^3/uL (1.8-7.7) Lymphocytes # (Auto) 1.5 x10^3/uL (1.0-4.8) Monocytes # (Auto) 0.5 x10^3/uL (0.0-1.1) Eosinophils # (Auto) 0.0 x10^3/uL (0.0-0.7) Basophils # (Auto) 0.0 x10^3/uL (0.0-0.2) Sodium Level 125 mmol/L (136-145) Potassium Level 3.4 mmol/L (3.5-5.1) Chloride Level 90 mmol/L (98-107) Carbon Dioxide Level 24 mmol/L (21-32) Anion Gap 11 (6-14) Blood Urea Nitrogen 39 mg/dL (7-20) Creatinine 1.7 mg/dL (0.6-1.0) Estimated GFR (Cockcroft-Gault) 29.4 Glucose Level 207 mg/dL (70-99) Calcium Level 7.3 mg/dL (8.5-10.1) Phosphorus Level 4.7 mg/dL (2.6-4.7) Magnesium Level 2.5 mg/dL (1.8-2.4) Albumin 1.7 g/dL (3.4-5.0) Random Vancomycin Level 24.4 mcg/mL Test 05/17/20 05:53 05/17/20 09:30 05/17/20 11:45 05/17/20 13:04 Glucose (Fingerstick) 233 mg/dL (70-99) 297 mg/dL (70-99) Heparin Anti-Xa Act, Unfractionated 0.40 IU/mL (0.30-0.70) O2 Saturation 96 % (92-99) Arterial Blood pH 7.49 (7.35-7.45) Arterial Blood pCO2 at Patient Temp 30 mmHg (35-46) Arterial Blood pO2 at Patient Temp 89 mmHg (65-108) Arterial Blood HCO3 22 mmol/L (21-28) Arterial Blood Base Excess -1 mmol/L (-3-3) FiO2 50%/ 12/10 r=16 Comment Review of Relevant I have reviewed the following items danisha (where applicable) has been applied. Medications: Current Medications Medications (Trade) Dose Ordered Sig/Morgan Route PRN Reason Start Time Stop Time Status Last Admin Dose Admin Atorvastatin Calcium (Lipitor) 80 mg QHS PO 05/16/20 21:00 05/16/20 21:28 Carbamazepine (TEGretol) 200 mg QHS PO 05/16/20 21:00 05/16/20 21:29 Piperacillin Sod/ Tazobactam Sod 2.25 gm/Sodium Chloride 50 ml @ 100 mls/hr Q6HRS IV 05/16/20 18:00 05/17/20 13:05 Pantoprazole Sodium (PROTONIX VIAL for IV PUSH) 40 mg DAILYAC IVP 05/17/20 07:30 05/17/20 08:50 Ringer's Solution 1,000 ml @ 100 mls/hr Q10H IV 05/16/20 14:45 05/17/20 10:47 DC 05/17/20 00:00 Linezolid/Dextrose 300 ml @ 300 mls/hr Q12HR IV 05/17/20 09:00 05/17/20 09:23 Dexmedetomidine HCl 400 mcg/ Sodium Chloride 100 ml @ 0 mls/hr CONT PRN IV PER PROTOCOL 05/17/20 09:45 05/17/20 09:54 Sodium Chloride 1,000 ml @ 100 mls/hr Q10H IV 05/17/20 11:00 05/17/20 10:48 Furosemide (Lasix) 40 mg 1X ONCE IVP 05/17/20 11:00 05/17/20 11:01 DC 05/17/20 11:26 Potassium Chloride (Klor-Con) 40 meq 1X ONCE PO 05/17/20 11:00 05/17/20 11:01 DC 05/17/20 11:27 Justifications for Admission Other Justification RANJITH PACHECO MD May 17, 2020 14:02
--- NOTE | 2020-05-17 15:51 | NUR ---
SW following today for discharge planning. Spoke with RN and reviewed chart. Pt COVID negative. Pt on BIPAP and IV Zosyn. Diet advanced to ADA.
--- NOTE | 2020-05-17 16:18 | EKG ---
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
--- NOTE | 2020-05-17 16:19 | EKG ---
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
--- NOTE | 2020-05-17 16:24 | EKG ---
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
--- NOTE | 2020-05-17 16:25 | EKG ---
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
[2020-05-17 16:42] LABS: BASE EXCESS ABG -7 mmol/L (-3-3); HCO3 ABG 18 mmol/L (21-28); PCO2 ABG 36 mmHg (35-46); PO2 ABG 102 mmHg (65-108); SAT O2 ABG 96 % (92-99)
[2020-05-17 16:46] LABS: FIO2 ABG 50% 22/6 R=16
[2020-05-17] MEDS ORDERED: ETOMIDATE 20 MG/10 ML VIAL. IV ONE ×2 (17:06→17:45)
[2020-05-17] MEDS ORDERED: SUCCINYLCHOLINE 200 MG/10 ML VIAL. ONE (17:06)
[2020-05-17] MEDS: MIDAZOLAM 100mg/100ml NS BAG 100 ML IV PRN (17:15)
--- NOTE | 2020-05-17 17:30 | NUR ---
At 1630 patient on Bipap, maxed on Precedex RR in the 40's, visibly anxious. Patient stated that she would be ok if we had to intubate. ABG ordered, results to Dr Beckham. Orders to intubate. 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 CXR results for ET placement texted to Dr Beckham. Order to retract ET tube 3cm. Patient in no apparent distress, tolerating vent, VSS.
[2020-05-17] MEDS ORDERED: SUCCINYLCHOLINE 200 MG/10 ML VIAL. IV ONE (17:45)
--- NOTE | 2020-05-17 18:39 | RAD ---
XR CHEST 1V Clinical History: Reason: ET and OG tube placement / Spl. Instructions: / History: Technique: AP view of the chest was obtained at 05/17/2020 5:49 PM. Comparison: May 16, 2020. Findings: There has been interval placement of endotracheal tube into the right main bronchus. The right jugula r line is unchanged. There is been interval placement of enteric tube which has its tip in the distal stomach. The cardiomediastinal silhouette is normal. The pulmonary vasculature is normal. There is p atchy opacities in the lungs bilaterally and obscuration of left hemidiaphragm.. Impression: 1. Right mainstem intubation. It would be helpful to withdraw the endotracheal tube approximately 3 c m and repeat the chest x-ray. 2. Worsening bilateral infiltrates. End impression These results were called to Monik on the floor and verified by read back at the time of dictation. FOR INTERNAL CODING PURPOSES Critical result: Findings called to the floor at 05/17/2020 6:37 PM. RESULT CODE: (C) Electronically signed by: Houston Rodriguez III, MD (05/17/2020 6:37 PM) [facility]
[2020-05-17] MEDS ORDERED: SODIUM BICARB ADULT 8.4% 50 MEQ/50 ML DISP.SYRIN. IV ONE (19:15)
[2020-05-17 20:01] LABS: BASE EXCESS ABG -1 mmol/L (-3-3); HCO3 ABG 23 mmol/L (21-28); PCO2 ABG 33 mmHg (35-46); PO2 ABG 93 mmHg (65-108); SAT O2 ABG 96 % (92-99)
[2020-05-17 20:23] LABS: FIO2 ABG 100
[2020-05-17] MEDS: CHLORHEXIDINE 0.12% 15 ML MOUTHWASH. MM SCH (20:32)
[2020-05-17] MEDS: ATORVASTATIN CALCIUM 40 MG TABLET. PO SCH (20:32)
[2020-05-17] MEDS: carBAMazepine 200 MG TABLET PO SCH (20:33)
[2020-05-18] VITALS (32 sets, daily range): BP systolic 86–126; BP diastolic 44–84
[2020-05-18] MEDS: MIDAZOLAM 100mg/100ml NS BAG 100 ML IV PRN (02:34)
[2020-05-18] MEDS: PIPERACILLIN/TAZOBACTAM 2.25 GM in IV NORMAL SALINE 50ML 50 ML IV SCH ×3 (06:08→18:02)
[2020-05-18] MEDS: INSULIN LISPRO 300 UNITS/3 ML VIAL. SQ SCH ×3 (06:08→18:03)
[2020-05-18] MEDS: HYDROCORTISONE SOD SUCC/PF 100 MG/2 ML VIAL. IVP SCH ×3 (06:09→21:36)
[2020-05-18 06:32] LABS: ALBUMIN 1.5 g/dL (3.4-5.0); CALCIUM 7.1 mg/dL (8.5-10.1); CREATININE 1.8 mg/dL (0.6-1.0); GFR 27.5; PHOSPHORUS 4.8 mg/dL (2.6-4.7)
[2020-05-18 06:33] LABS: POTASSIUM 2.9 mmol/L (3.5-5.1)
[2020-05-18] MEDS: IV NORMAL SALINE 1000ML BAG 1,000 ML IV SCH ×2 (07:00→16:55)
[2020-05-18] MEDS: PANTOPRAZOLE IV PUSH 40 MG VIAL. IVP SCH (07:44)
[2020-05-18] MEDS: POTASSIUM CHLORIDE 20MEQ 100 ML IV SCH ×2 (07:46→10:07)
[2020-05-18 07:59] LABS: BASO % 0 % (0-3); EOS # 0.1 x10^3/uL (0.0-0.7); EOS % 0 % (0-3); HEMATOCRIT 25.3 % (36.0-47.0); HEMOGLOBIN 8.1 g/dL (12.0-15.5); LYMPH # 1.5 x10^3/uL (1.0-4.8); LYMPH % 10 % (24-48); MEAN CORPUSCULAR HEMOGLOBIN 28 pg (25-35); MEAN CORPUSCULAR HGB CONC 32 g/dL (31-37); MEAN CORPUSCULAR VOLUME 89 fL (79-100); MONO # 0.7 x10^3/uL (0.0-1.1); MONO % 4 % (0-9); NEUT # 13.7 x10^3/uL (1.8-7.7); NEUT % 86 % (31-73); PLATELET COUNT 209 x10^3/uL (140-400); RED BLOOD COUNT 2.85 x10^6/uL (3.50-5.40); RED CELL DISTRIBUTION WIDTH 16.7 % (11.5-14.5)
[2020-05-18] MEDS ORDERED: POTASSIUM BICARB 20 MEQ EFFERVESCENT TABLET. PO ONE (08:00)
--- NOTE | 2020-05-18 08:06 | PDOC ---
Infectious Disease Note Subjective Subjective pt is intubated now on vent ROS ROS no n/v/d/sob Vital Sign Vital Signs Vital Signs Date Time Temp Pulse Resp B/P (MAP) Pulse Ox O2 Delivery O2 Flow Rate FiO2 05/18/20 07:00 76 20 106/63 (77) 100 Ventilator 05/18/20 04:00 99.8 99.8 Physical Exam PHYSICAL EXAM GENERAL: sedated on vent VITAL SIGNS: intubated on vent HEENT: Both pupils are round and reacting. No conjunctival lesion. No lesion in the mouth. NECK: Supple. No JVP. No lymphadenopathy. LUNGS: Clear. HEART: S1, S2 regular. ABDOMEN: Benign. EXTREMITIES: No edema or cyanosis. SKIN: Unremarkable. NEUROLOGIC: sedated on vent Labs Lab Laboratory Tests Test 05/17/20 09:30 05/17/20 11:45 05/17/20 13:04 05/17/20 16:40 Heparin Anti-Xa Act, Unfractionated 0.40 IU/mL (0.30-0.70) O2 Saturation 96 % (92-99) 96 % (92-99) Arterial Blood pH 7.49 (7.35-7.45) 7.32 (7.35-7.45) Arterial Blood pCO2 at Patient Temp 30 mmHg (35-46) 36 mmHg (35-46) Arterial Blood pO2 at Patient Temp 89 mmHg (65-108) 102 mmHg (65-108) Arterial Blood HCO3 22 mmol/L (21-28) 18 mmol/L (21-28) Arterial Blood Base Excess -1 mmol/L (-3-3) -7 mmol/L (-3-3) FiO2 50%/ 12/10 r=16 50% 12/10 r=16 Glucose (Fingerstick) 297 mg/dL (70-99) Test 05/17/20 17:46 05/17/20 19:59 05/17/20 23:39 05/18/20 05:50 Glucose (Fingerstick) 294 mg/dL (70-99) 308 mg/dL (70-99) O2 Saturation 96 % (92-99) Arterial Blood pH 7.46 (7.35-7.45) Arterial Blood pCO2 at Patient Temp 33 mmHg (35-46) Arterial Blood pO2 at Patient Temp 93 mmHg (65-108) Arterial Blood HCO3 23 mmol/L (21-28) Arterial Blood Base Excess -1 mmol/L (-3-3) FiO2 100 White Blood Count 16.0 x10^3/uL (4.0-11.0) Red Blood Count 2.85 x10^6/uL (3.50-5.40) Hemoglobin 8.1 g/dL (12.0-15.5) Hematocrit 25.3 % (36.0-47.0) Mean Corpuscular Volume 89 fL (79-100) Mean Corpuscular Hemoglobin 28 pg (25-35) Mean Corpuscular Hemoglobin Concent 32 g/dL (31-37) Red Cell Distribution Width 16.7 % (11.5-14.5) Platelet Count 209 x10^3/uL (140-400) Neutrophils (%) (Auto) 86 % (31-73) Lymphocytes (%) (Auto) 10 % (24-48) Monocytes (%) (Auto) 4 % (0-9) Eosinophils (%) (Auto) 0 % (0-3) Basophils (%) (Auto) 0 % (0-3) Neutrophils # (Auto) 13.7 x10^3/uL (1.8-7.7) Lymphocytes # (Auto) 1.5 x10^3/uL (1.0-4.8) Monocytes # (Auto) 0.7 x10^3/uL (0.0-1.1) Eosinophils # (Auto) 0.1 x10^3/uL (0.0-0.7) Basophils # (Auto) 0.0 x10^3/uL (0.0-0.2) Sodium Level 133 mmol/L (136-145) Potassium Level 2.9 mmol/L (3.5-5.1) Chloride Level 95 mmol/L (98-107) Carbon Dioxide Level 25 mmol/L (21-32) Anion Gap 13 (6-14) Blood Urea Nitrogen 44 mg/dL (7-20) Creatinine 1.8 mg/dL (0.6-1.0) Estimated GFR (Cockcroft-Gault) 27.5 Glucose Level 244 mg/dL (70-99) Calcium Level 7.1 mg/dL (8.5-10.1) Phosphorus Level 4.8 mg/dL (2.6-4.7) Magnesium Level 2.5 mg/dL (1.8-2.4) Albumin 1.5 g/dL (3.4-5.0) Test 05/18/20 05:52 Glucose (Fingerstick) 266 mg/dL (70-99) Micro Microbiology 05/15/20 Blood Culture - Preliminary, Resulted NO GROWTH AFTER 1 DAY Objective Assessment IMPRESSION: 1. Respiratory failure. 2. Coronary artery disease with acute myocardial infarction. 3. Pulmonary infiltrate, pneumonia versus congestive heart failure. 4. Chronic obstructive pulmonary disease exacerbation. 5. Acute kidney injury. 6. Hypertension. 7. Leukocytosis. Plan Plan of Care cont supportive care cont antibiotics possible cath today MASSIMO MIRELES MD May 18, 2020 08:06
[2020-05-18 08:14] LABS: PROTHROMBIN TIME PATIENT 15.5 SEC (11.7-14.0)
[2020-05-18 08:27] LABS: BASE EXCESS ABG 1 mmol/L (-3-3); HCO3 ABG 24 mmol/L (21-28); PCO2 ABG 31 mmHg (35-46); PO2 ABG 260 mmHg (65-108); SAT O2 ABG 99 % (92-99)
[2020-05-18] MEDS: IPRATRPIUM/ALBUTEROL 0.5/2.5MG 3 ML NEBU. NEB SCH ×3 (08:39→21:04)
[2020-05-18] MEDS: BUDESONIDE 0.5 MG/2 ML NEBU. NEB SCH ×2 (08:39→21:04)
[2020-05-18] MEDS: METOPROLOL SUCC 24HR ER 25 MG TAB.ER.24H. PO SCH (09:00)
[2020-05-18 09:13] LABS: FIO2 ABG 80% VENT
[2020-05-18] MEDS: POLYETHYLENE GLYCOL 3350 17 GM PACKET. PO SCH (09:22)
[2020-05-18] MEDS: DOCUSATE SODIUM 100 MG CAPSULE. PO SCH (09:23)
[2020-05-18] MEDS: buPROPion XL 150 MG TAB.ER.24H. PO SCH ×2 (09:57→21:35)
[2020-05-18] MEDS: ARIPiprazole 2 MG TABLET PO SCH (09:57)
[2020-05-18] MEDS: PRASUGREL 10 MG TABLET. PO SCH (09:57)
[2020-05-18] MEDS: CHLORHEXIDINE 0.12% 15 ML MOUTHWASH. MM SCH ×2 (09:58→21:35)
[2020-05-18] MEDS: ASCORBIC ACID 500 MG TABLET PO SCH ×2 (09:58→21:35)
[2020-05-18] MEDS: ASPIRIN ENTERIC COATED 81 MG TABLET.DR. PO SCH (09:58)
[2020-05-18] MEDS ORDERED: LIDOCAINE 1% PF 2 ML VIAL. ONE (10:07)
[2020-05-18] MEDS ORDERED: IODIXANOL 320 MG/ML 100 ML VIAL. ONE (10:08)
[2020-05-18] MEDS ORDERED: HEPARIN for ARTERIAL LINE 1,500 ML ONE (10:08)
[2020-05-18] MEDS ORDERED: VERAPAMIL 5 MG/2 ML VIAL. ONE ×2 (10:19→11:00)
[2020-05-18] MEDS ORDERED: HEPARIN for IV BOLUS 10,000 UNIT/10 ML VIAL. ONE (10:19)
[2020-05-18] MEDS ORDERED: NITROGLYCERIN 200 MCG/2 ML SYRINGE FOR CATH/VASC LAB. ONE ×2 (10:20→11:48)
[2020-05-18] MEDS ORDERED: LIDOCAINE 1% Multi-Dose 20 ML VIAL. ONE (11:02)
--- NOTE | 2020-05-18 11:06 | PDOC ---
[facility] PROGRESS NOTE Date of Service DOS: DATE: 05/18/20 TIME: 11:02 Chief Complaint Chief Complaint sepsis, severe sepsis, shock Acute hypoxemic respiratory failure, on COPD and ARIANNA currently on BiPAP, low threshold for intubation COVID risk, pt initial swab is negative acute acidosis on CKD 4, renal failure, DKA, acute acidosis with hyperosmolar syndrome, weaned off of insulin drip troponinemia, NSTEMI 2, demand, obese, BMI 39, some pickwickian habitus constipation, on chronic abdominal hernia, with abdominal pain History of Present Illness History of Present Illness 05/18/2020 No acute events overnight. T-max of 99.8. Patient was intubated yesterday current ventilator settings of 18/500/80%/6. Potassium 2.9 today replace with 100 mEq of IV potassium. pH 7.51, PCO2 31, PO2 260, HCO3 24. Patient's chart, labs, images were reviewed and discussed with RN 05/17/2020 No acute events overnight. Patient remains afebrile. Tolerating BiPAP for now and saturating 100%.> 50% time spent in patient chart, labs, and imaging review and in discussion with RN and MARTIN 74 year old female admit for chest pain last night, pain started acutely while walking her dog, mid chest pain with tightness. she came by ambulance, and was newly hypoxic to mid 80's in the ER. she has a Hx CAD and stents, CV team called for EKG change, Dr. Joshua saw the pt in the ER, admit to ICU, broad spectrum abx given, CT angio done for pain, showed large amt of stool, no clear PNA Vitals/I&O Vitals/I&O: Vital Signs Date Time Temp Pulse Resp B/P (MAP) Pulse Ox O2 Delivery O2 Flow Rate FiO2 05/18/20 09:58 Ventilator 05/18/20 09:21 100 05/18/20 09:00 81 111/61 05/18/20 07:00 20 05/18/20 04:00 99.8 99.8 I & O 05/17/20 05/17/20 05/18/20 15:00 23:00 07:00 Intake Total 1120 ml 710.89 ml 540 ml Output Total 900 ml 915 ml 1070 ml Balance 220 ml -204.11 ml -530 ml Physical Exam Physical Exam: GENERAL: sedated on vent VITAL SIGNS: intubated on vent HEENT: Both pupils are round and reacting. No conjunctival lesion. No lesion in the mouth. NECK: Supple. No JVP. No lymphadenopathy. LUNGS: Clear. HEART: S1, S2 regular. ABDOMEN: Benign. EXTREMITIES: No edema or cyanosis. SKIN: Unremarkable. NEUROLOGIC: sedated on vent General: Alert, Cooperative, mild distress Heart: Regular rate Lungs: Other (decrease bs) Abdomen: Normal bowel sounds Extremities: No cyanosis, No edema Skin: No rashes Labs Labs: Laboratory Tests Test 05/17/20 11:45 05/17/20 13:04 05/17/20 16:40 05/17/20 17:46 O2 Saturation 96 % (92-99) 96 % (92-99) Arterial Blood pH 7.49 (7.35-7.45) 7.32 (7.35-7.45) Arterial Blood pCO2 at Patient Temp 30 mmHg (35-46) 36 mmHg (35-46) Arterial Blood pO2 at Patient Temp 89 mmHg (65-108) 102 mmHg (65-108) Arterial Blood HCO3 22 mmol/L (21-28) 18 mmol/L (21-28) Arterial Blood Base Excess -1 mmol/L (-3-3) -7 mmol/L (-3-3) FiO2 50%/ 12/10 r=16 50% / r=16 Glucose (Fingerstick) 297 mg/dL (70-99) 294 mg/dL (70-99) Test 05/17/20 19:59 05/17/20 23:39 05/18/20 05:50 05/18/20 05:52 O2 Saturation 96 % (92-99) Arterial Blood pH 7.46 (7.35-7.45) Arterial Blood pCO2 at Patient Temp 33 mmHg (35-46) Arterial Blood pO2 at Patient Temp 93 mmHg (65-108) Arterial Blood HCO3 23 mmol/L (21-28) Arterial Blood Base Excess -1 mmol/L (-3-3) FiO2 100 Glucose (Fingerstick) 308 mg/dL (70-99) 266 mg/dL (70-99) White Blood Count 16.0 x10^3/uL (4.0-11.0) Red Blood Count 2.85 x10^6/uL (3.50-5.40) Hemoglobin 8.1 g/dL (12.0-15.5) Hematocrit 25.3 % (36.0-47.0) Mean Corpuscular Volume 89 fL (79-100) Mean Corpuscular Hemoglobin 28 pg (25-35) Mean Corpuscular Hemoglobin Concent 32 g/dL (31-37) Red Cell Distribution Width 16.7 % (11.5-14.5) Platelet Count 209 x10^3/uL (140-400) Neutrophils (%) (Auto) 86 % (31-73) Lymphocytes (%) (Auto) 10 % (24-48) Monocytes (%) (Auto) 4 % (0-9) Eosinophils (%) (Auto) 0 % (0-3) Basophils (%) (Auto) 0 % (0-3) Neutrophils # (Auto) 13.7 x10^3/uL (1.8-7.7) Lymphocytes # (Auto) 1.5 x10^3/uL (1.0-4.8) Monocytes # (Auto) 0.7 x10^3/uL (0.0-1.1) Eosinophils # (Auto) 0.1 x10^3/uL (0.0-0.7) Basophils # (Auto) 0.0 x10^3/uL (0.0-0.2) Sodium Level 133 mmol/L (136-145) Potassium Level 2.9 mmol/L (3.5-5.1) Chloride Level 95 mmol/L (98-107) Carbon Dioxide Level 25 mmol/L (21-32) Anion Gap 13 (6-14) Blood Urea Nitrogen 44 mg/dL (7-20) Creatinine 1.8 mg/dL (0.6-1.0) Estimated GFR (Cockcroft-Gault) 27.5 Glucose Level 244 mg/dL (70-99) Calcium Level 7.1 mg/dL (8.5-10.1) Phosphorus Level 4.8 mg/dL (2.6-4.7) Magnesium Level 2.5 mg/dL (1.8-2.4) Albumin 1.5 g/dL (3.4-5.0) Test 05/18/20 07:39 05/18/20 09:00 Prothrombin Time 15.5 SEC (11.7-14.0) Prothromb Time International Ratio 1.3 (0.8-1.1) O2 Saturation 99 % (92-99) Arterial Blood pH 7.51 (7.35-7.45) Arterial Blood pCO2 at Patient Temp 31 mmHg (35-46) Arterial Blood pO2 at Patient Temp 260 mmHg (65-108) Arterial Blood HCO3 24 mmol/L (21-28) Arterial Blood Base Excess 1 mmol/L (-3-3) FiO2 80% vent Comment Review of Relevant I have reviewed the following items danisha (where applicable) has been applied. Medications: Current Medications Medications (Trade) Dose Ordered Sig/Morgan Route PRN Reason Start Time Stop Time Status Last Admin Dose Admin Furosemide (Lasix) 40 mg 1X ONCE IVP 05/17/20 14:30 05/17/20 14:31 DC 05/17/20 14:30 Furosemide (Lasix) 40 mg 1X ONCE IVP 05/17/20 16:30 05/17/20 16:31 DC 05/17/20 16:24 Potassium Chloride (Klor-Con) 20 meq 1X ONCE PO 05/17/20 16:30 05/17/20 16:31 DC 05/17/20 16:33 Fentanyl Citrate 30 ml @ 0 mls/hr CONT PRN IV SEE PROTOCOL 05/17/20 17:00 05/18/20 03:40 Chlorhexidine Gluconate (Peridex) 15 ml BID MM 05/17/20 21:00 05/18/20 09:58 Midazolam HCl 100 ml @ 0 mls/hr CONT PRN IV SEE PROTOCOL 05/17/20 17:00 05/18/20 02:34 Succinylcholine Chloride (Anectine) 200 mg 1X ONCE IV 05/17/20 17:45 05/17/20 17:46 DC 05/17/20 17:42 Etomidate (Amidate) 20 mg 1X ONCE IV 05/17/20 17:45 05/17/20 17:46 DC 05/17/20 17:42 Sodium Bicarbonate (Sodium Bicarb Adult 8.4% Syr) 50 meq 1X ONCE IV 05/17/20 19:15 05/17/20 19:16 DC 05/17/20 19:23 Potassium Bicarbonate (Potassium Effervescent Tablet) 80 meq 1X ONCE PO 05/18/20 08:00 05/18/20 08:01 DC 05/18/20 07:45 Potassium Chloride/Water 100 ml @ 100 mls/hr Q1H IV 05/18/20 08:00 05/18/20 09:59 DC 05/18/20 10:07 Justifications for Admission Other Justification RANJITH PACHECO MD May 18, 2020 11:06
--- NOTE | 2020-05-18 11:29 | PDOC ---
PULMONARY PROGRESS NOTES DATE: 05/18/20 TIME: 11:22 Subjective remains on vent 60% and PEEP of 5 on pressors planned for cath today Vitals Vital Signs Date Time Temp Pulse Resp B/P (MAP) Pulse Ox O2 Delivery O2 Flow Rate FiO2 05/18/20 09:58 Ventilator 05/18/20 09:21 100 05/18/20 09:00 81 111/61 05/18/20 07:00 20 05/18/20 04:00 99.8 99.8 Comments intubated/sedated General: Mild Distress Lungs: Other (decrease bs) Cardiovascular: S1, S2 Abdomen: Soft, Other Extremities: Other (trace edema) Skin: Warm Labs Laboratory Tests Test 05/16/20 12:05 05/16/20 13:20 05/16/20 17:40 05/16/20 20:00 Glucose (Fingerstick) 204 mg/dL (70-99) 222 mg/dL (70-99) Heparin Anti-Xa Act, Unfractionated 0.35 IU/mL (0.30-0.70) 0.27 IU/mL (0.30-0.70) Test 05/17/20 00:05 05/17/20 03:30 05/17/20 05:53 05/17/20 09:30 Glucose (Fingerstick) 220 mg/dL (70-99) 233 mg/dL (70-99) White Blood Count 20.4 x10^3/uL (4.0-11.0) Red Blood Count 3.02 x10^6/uL (3.50-5.40) Hemoglobin 8.7 g/dL (12.0-15.5) Hematocrit 26.7 % (36.0-47.0) Mean Corpuscular Volume 89 fL (79-100) Mean Corpuscular Hemoglobin 29 pg (25-35) Mean Corpuscular Hemoglobin Concent 33 g/dL (31-37) Red Cell Distribution Width 16.5 % (11.5-14.5) Platelet Count 221 x10^3/uL (140-400) Neutrophils (%) (Auto) 90 % (31-73) Lymphocytes (%) (Auto) 8 % (24-48) Monocytes (%) (Auto) 3 % (0-9) Eosinophils (%) (Auto) 0 % (0-3) Basophils (%) (Auto) 0 % (0-3) Neutrophils # (Auto) 18.3 x10^3/uL (1.8-7.7) Lymphocytes # (Auto) 1.5 x10^3/uL (1.0-4.8) Monocytes # (Auto) 0.5 x10^3/uL (0.0-1.1) Eosinophils # (Auto) 0.0 x10^3/uL (0.0-0.7) Basophils # (Auto) 0.0 x10^3/uL (0.0-0.2) Heparin Anti-Xa Act, Unfractionated 0.45 IU/mL (0.30-0.70) 0.40 IU/mL (0.30-0.70) Sodium Level 125 mmol/L (136-145) Potassium Level 3.4 mmol/L (3.5-5.1) Chloride Level 90 mmol/L (98-107) Carbon Dioxide Level 24 mmol/L (21-32) Anion Gap 11 (6-14) Blood Urea Nitrogen 39 mg/dL (7-20) Creatinine 1.7 mg/dL (0.6-1.0) Estimated GFR (Cockcroft-Gault) 29.4 Glucose Level 207 mg/dL (70-99) Calcium Level 7.3 mg/dL (8.5-10.1) Phosphorus Level 4.7 mg/dL (2.6-4.7) Magnesium Level 2.5 mg/dL (1.8-2.4) Albumin 1.7 g/dL (3.4-5.0) Random Vancomycin Level 24.4 mcg/mL Test 05/17/20 11:45 05/17/20 13:04 05/17/20 16:40 05/17/20 17:46 O2 Saturation 96 % (92-99) 96 % (92-99) Arterial Blood pH 7.49 (7.35-7.45) 7.32 (7.35-7.45) Arterial Blood pCO2 at Patient Temp 30 mmHg (35-46) 36 mmHg (35-46) Arterial Blood pO2 at Patient Temp 89 mmHg (65-108) 102 mmHg (65-108) Arterial Blood HCO3 22 mmol/L (21-28) 18 mmol/L (21-28) Arterial Blood Base Excess -1 mmol/L (-3-3) -7 mmol/L (-3-3) FiO2 50%/ 22/6 r=16 50% 22/6 r=16 Glucose (Fingerstick) 297 mg/dL (70-99) 294 mg/dL (70-99) Test 05/17/20 19:59 05/17/20 23:39 05/18/20 05:50 05/18/20 05:52 O2 Saturation 96 % (92-99) Arterial Blood pH 7.46 (7.35-7.45) Arterial Blood pCO2 at Patient Temp 33 mmHg (35-46) Arterial Blood pO2 at Patient Temp 93 mmHg (65-108) Arterial Blood HCO3 23 mmol/L (21-28) Arterial Blood Base Excess -1 mmol/L (-3-3) FiO2 100 Glucose (Fingerstick) 308 mg/dL (70-99) 266 mg/dL (70-99) White Blood Count 16.0 x10^3/uL (4.0-11.0) Red Blood Count 2.85 x10^6/uL (3.50-5.40) Hemoglobin 8.1 g/dL (12.0-15.5) Hematocrit 25.3 % (36.0-47.0) Mean Corpuscular Volume 89 fL (79-100) Mean Corpuscular Hemoglobin 28 pg (25-35) Mean Corpuscular Hemoglobin Concent 32 g/dL (31-37) Red Cell Distribution Width 16.7 % (11.5-14.5) Platelet Count 209 x10^3/uL (140-400) Neutrophils (%) (Auto) 86 % (31-73) Lymphocytes (%) (Auto) 10 % (24-48) Monocytes (%) (Auto) 4 % (0-9) Eosinophils (%) (Auto) 0 % (0-3) Basophils (%) (Auto) 0 % (0-3) Neutrophils # (Auto) 13.7 x10^3/uL (1.8-7.7) Lymphocytes # (Auto) 1.5 x10^3/uL (1.0-4.8) Monocytes # (Auto) 0.7 x10^3/uL (0.0-1.1) Eosinophils # (Auto) 0.1 x10^3/uL (0.0-0.7) Basophils # (Auto) 0.0 x10^3/uL (0.0-0.2) Sodium Level 133 mmol/L (136-145) Potassium Level 2.9 mmol/L (3.5-5.1) Chloride Level 95 mmol/L (98-107) Carbon Dioxide Level 25 mmol/L (21-32) Anion Gap 13 (6-14) Blood Urea Nitrogen 44 mg/dL (7-20) Creatinine 1.8 mg/dL (0.6-1.0) Estimated GFR (Cockcroft-Gault) 27.5 Glucose Level 244 mg/dL (70-99) Calcium Level 7.1 mg/dL (8.5-10.1) Phosphorus Level 4.8 mg/dL (2.6-4.7) Magnesium Level 2.5 mg/dL (1.8-2.4) Albumin 1.5 g/dL (3.4-5.0) Test 05/18/20 07:39 05/18/20 09:00 Prothrombin Time 15.5 SEC (11.7-14.0) Prothromb Time International Ratio 1.3 (0.8-1.1) O2 Saturation 99 % (92-99) Arterial Blood pH 7.51 (7.35-7.45) Arterial Blood pCO2 at Patient Temp 31 mmHg (35-46) Arterial Blood pO2 at Patient Temp 260 mmHg (65-108) Arterial Blood HCO3 24 mmol/L (21-28) Arterial Blood Base Excess 1 mmol/L (-3-3) FiO2 80% vent Laboratory Tests Test 05/17/20 11:45 05/17/20 13:04 05/17/20 16:40 05/17/20 17:46 O2 Saturation 96 % (92-99) 96 % (92-99) Arterial Blood pH 7.49 (7.35-7.45) 7.32 (7.35-7.45) Arterial Blood pCO2 at Patient Temp 30 mmHg (35-46) 36 mmHg (35-46) Arterial Blood pO2 at Patient Temp 89 mmHg (65-108) 102 mmHg (65-108) Arterial Blood HCO3 22 mmol/L (21-28) 18 mmol/L (21-28) Arterial Blood Base Excess -1 mmol/L (-3-3) -7 mmol/L (-3-3) FiO2 50%/ 22/ r=16 50% / r=16 Glucose (Fingerstick) 297 mg/dL (70-99) 294 mg/dL (70-99) Test 05/17/20 19:59 05/17/20 23:39 05/18/20 05:50 05/18/20 05:52 O2 Saturation 96 % (92-99) Arterial Blood pH 7.46 (7.35-7.45) Arterial Blood pCO2 at Patient Temp 33 mmHg (35-46) Arterial Blood pO2 at Patient Temp 93 mmHg (65-108) Arterial Blood HCO3 23 mmol/L (21-28) Arterial Blood Base Excess -1 mmol/L (-3-3) FiO2 100 Glucose (Fingerstick) 308 mg/dL (70-99) 266 mg/dL (70-99) White Blood Count 16.0 x10^3/uL (4.0-11.0) Red Blood Count 2.85 x10^6/uL (3.50-5.40) Hemoglobin 8.1 g/dL (12.0-15.5) Hematocrit 25.3 % (36.0-47.0) Mean Corpuscular Volume 89 fL (79-100) Mean Corpuscular Hemoglobin 28 pg (25-35) Mean Corpuscular Hemoglobin Concent 32 g/dL (31-37) Red Cell Distribution Width 16.7 % (11.5-14.5) Platelet Count 209 x10^3/uL (140-400) Neutrophils (%) (Auto) 86 % (31-73) Lymphocytes (%) (Auto) 10 % (24-48) Monocytes (%) (Auto) 4 % (0-9) Eosinophils (%) (Auto) 0 % (0-3) Basophils (%) (Auto) 0 % (0-3) Neutrophils # (Auto) 13.7 x10^3/uL (1.8-7.7) Lymphocytes # (Auto) 1.5 x10^3/uL (1.0-4.8) Monocytes # (Auto) 0.7 x10^3/uL (0.0-1.1) Eosinophils # (Auto) 0.1 x10^3/uL (0.0-0.7) Basophils # (Auto) 0.0 x10^3/uL (0.0-0.2) Sodium Level 133 mmol/L (136-145) Potassium Level 2.9 mmol/L (3.5-5.1) Chloride Level 95 mmol/L (98-107) Carbon Dioxide Level 25 mmol/L (21-32) Anion Gap 13 (6-14) Blood Urea Nitrogen 44 mg/dL (7-20) Creatinine 1.8 mg/dL (0.6-1.0) Estimated GFR (Cockcroft-Gault) 27.5 Glucose Level 244 mg/dL (70-99) Calcium Level 7.1 mg/dL (8.5-10.1) Phosphorus Level 4.8 mg/dL (2.6-4.7) Magnesium Level 2.5 mg/dL (1.8-2.4) Albumin 1.5 g/dL (3.4-5.0) Test 05/18/20 07:39 05/18/20 09:00 Prothrombin Time 15.5 SEC (11.7-14.0) Prothromb Time International Ratio 1.3 (0.8-1.1) O2 Saturation 99 % (92-99) Arterial Blood pH 7.51 (7.35-7.45) Arterial Blood pCO2 at Patient Temp 31 mmHg (35-46) Arterial Blood pO2 at Patient Temp 260 mmHg (65-108) Arterial Blood HCO3 24 mmol/L (21-28) Arterial Blood Base Excess 1 mmol/L (-3-3) FiO2 80% vent Medications Active Scripts Medications Dose Route/Sig Max Daily Dose Days Date Category Effient (Prasugrel Hcl) 10 Mg Tablet 10 Mg PO [id number] 30 06/10/19 Rx Furosemide 20 Mg Tablet 1 Tab PO DAILY 04/24/19 Reported Bupropion Xl (Bupropion Hcl) 150 Mg Tab.er.24h 150 Mg PO BID 04/24/19 Reported Tramadol Hcl 50 Mg Tablet 50 Mg PO Q4HRS PRN 04/24/19 Reported Cyclobenzaprine Hcl 5 Mg Tablet 5 Mg PO TID PRN 04/24/19 Reported Montelukast Sodium Tablet (Montelukast Sodium) 10 Mg Tablet 10 Mg PO HS 04/24/19 Reported Spironolactone 25 Mg Tablet 1 Tab PO DAILY 04/24/19 Reported Ranitidine Hcl 150 Mg Capsule 150 Mg PO DAILY 04/24/19 Reported Naproxen 500 Mg Tablet 1 Tab PO BID 30 04/24/19 Reported Atorvastatin Calcium 40 Mg Tablet 80 Mg PO QHS 12/02/18 Rx Abilify (Aripiprazole) 2 Mg Tablet 2 Mg PO DAILY 11/30/18 Reported Buspirone Hcl 15 Mg Tablet 15 Mg PO TID 11/30/18 Reported Tegretol (Carbamazepine) 200 Mg Tablet 200 Mg PO QHS 11/08/18 Reported Metoprolol Succinate ( Xl ) (Metoprolol Succinate) 25 Mg Tab.er.24h 12.5 Mg PO DAILY 11/08/18 Reported Klonopin (Clonazepam) 0.5 Mg Tablet 0.5 Mg PO PRN BID PRN 01/08/18 Reported Fish Oil 1,000 Mg Capsule ([place]-3 Fatty Acids/Fish Oil) 1 Each Capsule 1 Each PO TID 01/08/18 Reported Cymbalta (Duloxetine Hcl) 60 Mg Capsule.dr 120 Mg PO DAILY 01/08/18 Reported Loperamide (Loperamide Hcl) 2 Mg Capsule 2 Mg PO 01/04/18 Reported Zyrtec (Cetirizine Hcl) 10 Mg Tablet 1 Tab PO DAILY 01/04/18 Reported Zonisamide 100 Mg Capsule 100 Mg PO TID 12/14/17 Reported Protonix (Pantoprazole Sodium) 20 Mg Tablet.dr 40 Mg PO DAILY 12/14/17 Reported Nortriptyline Hcl 25 Mg Capsule 50 Mg PO HS 12/14/17 Reported Duoneb 0.5-3(2.5) Mg/3 Ml (Albuterol/Ipratropium) 3 Ml Ampul.neb 3 Ml NEB TID 12/14/17 Reported Multivitamins (Multivitamin) 1 Each Tablet 1 Tab PO DAILY 06/25/17 Reported Mirtazapine 15 Mg Tablet 30 Mg PO QHS 06/25/17 Reported Lisinopril 5 Mg Tablet 1 Tab PO DAILY 06/25/17 Reported Vitamin B-12 (Cyanocobalamin (Vitamin B-12)) 1,000 Mcg Tablet 1 Tab PO DAILY 06/25/17 Reported Vitamin D (Cholecalciferol (Vitamin D3)) 1,000 Unit Capsule 1 Cap PO DAILY 06/25/17 Reported Ascorbic Acid 500 Mg Tablet 500 Mg PO BID 06/25/17 Reported Voltaren (Diclofenac Sodium) 100 Gm Gel..gram. 100 Gm TP QID 02/02/15 Reported Levemir Flextouch (Insulin Detemir) 100 Unit/1 Ml Insuln.pen 36 Unit SQ BID 02/02/15 Reported Flonase Allergy Relief (Fluticasone Propionate) 9.9 Ml [place].susp 2 Spr NS DAILY 02/01/15 Reported Aspir 81 (Aspirin) 81 Mg Tablet.dr 81 Mg PO DAILY 09/03/13 Reported Ropinirole Hcl 1 Mg Tablet 1 Mg PO QHS 09/03/13 Reported Novolog (Insulin Aspart) 100 Unit/1 Ml Cartridge 6 Unit SQ TIDAC 09/03/13 Reported Impression . 1. Acute hypoxemic respiratory failure, multifactorial in etiology including shock, myocardial infarction, chronic obstructive pulmonary disease with acute exacerbation, no pulmonary embolism--- now on vent 2. Abnormal CT of the chest./basal atelectasis 3. Elevated troponin, non-ST elevation myocardial infarction. 4. Shock ,cardiac 5. Acute kidney injury. 6. Chronic kidney disease. 7. Chest pain. 8. Chronic obstructive pulmonary disease with acute exacerbation. 9. Obesity, obstructive sleep apnea-hypopnea syndrome. Plan . PLAN: Continue vent support Fi02 60% and PEEP of 5 Follow CXR/ABG NEBS Continue Solu-cortef Continue empiric ABX per ID-- on zyvox and zosyn Follow cultures Continue vasopressors to KEEP MAp greater than 65 Follow cardiology recs-- planned for cardiac cath today Follow nephrology recs-- monitor renal function DVT/GI PPX D/W RN and RT CC time 30 minutes, No overlap BRAULIO SMITH MD May 18, 2020 11:29
--- NOTE | 2020-05-18 11:29 | PDOC ---
Renal-Progress Notes Subjective Notes Notes INTUBATED YESTERDAY History of Present Illness Hx of present illness ON THE VENT. CARDIAC ENZYMES ARE UP Vitals Vitals Vital Signs Date Time Temp Pulse Resp B/P (MAP) Pulse Ox O2 Delivery O2 Flow Rate FiO2 05/18/20 09:58 Ventilator 05/18/20 09:21 100 05/18/20 09:00 81 111/61 05/18/20 07:00 20 05/18/20 04:00 99.8 99.8 Weight Weight [ ] I.O. Intake and Output Intake and Output 05/18/20 07:00 Intake Total 2370.89 ml Output Total 2885 ml Balance -514.11 ml Intake Oral 640 ml IV Total 1730.89 ml Output Urine Total 2885 ml # Bowel Movements 2 Labs Labs Laboratory Tests Test 05/17/20 11:45 05/17/20 13:04 05/17/20 16:40 05/17/20 17:46 O2 Saturation 96 % (92-99) 96 % (92-99) Arterial Blood pH 7.49 (7.35-7.45) 7.32 (7.35-7.45) Arterial Blood pCO2 at Patient Temp 30 mmHg (35-46) 36 mmHg (35-46) Arterial Blood pO2 at Patient Temp 89 mmHg (65-108) 102 mmHg (65-108) Arterial Blood HCO3 22 mmol/L (21-28) 18 mmol/L (21-28) Arterial Blood Base Excess -1 mmol/L (-3-3) -7 mmol/L (-3-3) FiO2 50%/ 12/10 r=16 50% 12/10 r=16 Glucose (Fingerstick) 297 mg/dL (70-99) 294 mg/dL (70-99) Test 05/17/20 19:59 05/17/20 23:39 05/18/20 05:50 05/18/20 05:52 O2 Saturation 96 % (92-99) Arterial Blood pH 7.46 (7.35-7.45) Arterial Blood pCO2 at Patient Temp 33 mmHg (35-46) Arterial Blood pO2 at Patient Temp 93 mmHg (65-108) Arterial Blood HCO3 23 mmol/L (21-28) Arterial Blood Base Excess -1 mmol/L (-3-3) FiO2 100 Glucose (Fingerstick) 308 mg/dL (70-99) 266 mg/dL (70-99) White Blood Count 16.0 x10^3/uL (4.0-11.0) Red Blood Count 2.85 x10^6/uL (3.50-5.40) Hemoglobin 8.1 g/dL (12.0-15.5) Hematocrit 25.3 % (36.0-47.0) Mean Corpuscular Volume 89 fL (79-100) Mean Corpuscular Hemoglobin 28 pg (25-35) Mean Corpuscular Hemoglobin Concent 32 g/dL (31-37) Red Cell Distribution Width 16.7 % (11.5-14.5) Platelet Count 209 x10^3/uL (140-400) Neutrophils (%) (Auto) 86 % (31-73) Lymphocytes (%) (Auto) 10 % (24-48) Monocytes (%) (Auto) 4 % (0-9) Eosinophils (%) (Auto) 0 % (0-3) Basophils (%) (Auto) 0 % (0-3) Neutrophils # (Auto) 13.7 x10^3/uL (1.8-7.7) Lymphocytes # (Auto) 1.5 x10^3/uL (1.0-4.8) Monocytes # (Auto) 0.7 x10^3/uL (0.0-1.1) Eosinophils # (Auto) 0.1 x10^3/uL (0.0-0.7) Basophils # (Auto) 0.0 x10^3/uL (0.0-0.2) Sodium Level 133 mmol/L (136-145) Potassium Level 2.9 mmol/L (3.5-5.1) Chloride Level 95 mmol/L (98-107) Carbon Dioxide Level 25 mmol/L (21-32) Anion Gap 13 (6-14) Blood Urea Nitrogen 44 mg/dL (7-20) Creatinine 1.8 mg/dL (0.6-1.0) Estimated GFR (Cockcroft-Gault) 27.5 Glucose Level 244 mg/dL (70-99) Calcium Level 7.1 mg/dL (8.5-10.1) Phosphorus Level 4.8 mg/dL (2.6-4.7) Magnesium Level 2.5 mg/dL (1.8-2.4) Albumin 1.5 g/dL (3.4-5.0) Test 05/18/20 07:39 05/18/20 09:00 Prothrombin Time 15.5 SEC (11.7-14.0) Prothromb Time International Ratio 1.3 (0.8-1.1) O2 Saturation 99 % (92-99) Arterial Blood pH 7.51 (7.35-7.45) Arterial Blood pCO2 at Patient Temp 31 mmHg (35-46) Arterial Blood pO2 at Patient Temp 260 mmHg (65-108) Arterial Blood HCO3 24 mmol/L (21-28) Arterial Blood Base Excess 1 mmol/L (-3-3) FiO2 80% vent Micro Micro Microbiology 05/15/20 Blood Culture - Preliminary, Resulted NO GROWTH AFTER 2 DAYS Review of Systems Constitutional: yes: other (UNABLE TO OBTAIN) Physical Exam General Appearance: no apparent distress Skin: warm Respiratory: decreased breath sounds Heart: S1S2 Abdomen: soft, bowel sounds present Genitourinary: bladder flat Extremities: pulses present Neurology: other (SEDATED) Assessment Assessment IMP AVIVA-IMPROVING WITH CR DOWN TO 1.8 FROM 2.5 CKD STAGE 3 WITH CR ABOUT 1.5 ?CARDIAC INJURY-TROPONIN IS UP HYPOKALEMIA-REPLACED HYPONATREMIA-BETTER ACUTE RESP FAILURE PROBABLE PNEUMONIA LEUCOCYTOSIS DM II-BG UP PLAN REPLACE K CHECK MAG PRN LOOP DIURETICS HEART CATH TODAY ANTIBIOTICS INSULIN GTT PRESSORS NEEDED VENT SUPPORT WILL FOLLOW ORION ARAYA MD May 18, 2020 11:29
[2020-05-18] MEDS ORDERED: PRASUGREL 10 MG TABLET. ONE (11:56)
[2020-05-18] MEDS ORDERED: HEPARIN 25,000UTS/250ML PREMIX 250 ML IV ONE (11:58)
[2020-05-18] MEDS ORDERED: HEPARIN for IV BOLUS 10,000 UNIT/10 ML VIAL. IV PRN (12:15)
[2020-05-18] MEDS ORDERED: HEPARIN 25,000UTS/250ML PREMIX 250 ML IV PRN (12:15)
[2020-05-18] MEDS ORDERED: PRASUGREL 10 MG TABLET. PO ONE (12:15)
[2020-05-18] MEDS ORDERED: IODIXANOL 320 MG/ML 100 ML VIAL. IART ONE (12:15)
[2020-05-18] MEDS ORDERED: LIDOCAINE 1% Multi-Dose 20 ML VIAL. INJ ONE (12:15)
[2020-05-18] MEDS ORDERED: HEPARIN for IV BOLUS 10,000 UNIT/10 ML VIAL. IART ONE (12:15)
[2020-05-18] MEDS ORDERED: NITROGLYCERIN 200 MCG/2 ML SYRINGE FOR CATH/VASC LAB. IART ONE (12:15)
--- NOTE | 2020-05-18 13:25 | CARD ---
MR#: [id number] Date of Study: 05/18/2020 Ordering Physician: SHARYN BARFIELD, Referring Physician: SHARYN BARFIELD, Tech: JAMAL MERA APPROVED REPORT Technologist: JAMAL MERA Nurse: Mariam Barker RN Procedure(s) performed: FLOURO TIME 11.5 MINUTES DOSE 129.26 CONTRAST 130 CC'S VISIPAQUE SEDATION 105 MINUTES CLASS 4 [facility], Coronary angiography, PCI of the LM, Balloon angioplasty of the LAD HISTORY : The patient is a 74 year-old female with a history of . Heart Failure Heart Failure: Yes If Yes, Newly Diagnosed: No If Yes, HF Type: Systolic CASE TECHNIQUE IV conscious sedation was used throughout procedure with appropriate monitoring and was performed in the presence of a registered nurse who was an independent trained observer other than the physician p erforming the procedure. During this case, Fluoroscopy and Iso-osmolar contrast were used for imaging . Specimen(s) Removed: N/A Estimated Blood loss: 20 cc's. PROCEDURE NARRATIVE Procedure indications: 74-year-old woman with known prior history of severe coronary artery disease with prior history of pr oximal and distal LAD stents with severe negative remodeling who presented with acute on chronic syst olic and diastolic heart failure and an elevated troponin of 44. She was taken to the catheterizatio n laboratory for further evaluation and treatment. Informed consent was obtained from the patient's . Procedure details: The right groin was prepped and draped in usual sterile fashion. A 5 Zimbabwean sheath was placed in the right common femoral artery via the modified Seldinger technique using an 18-gauge needle and a J-ti p guidewire. Next, diagnostic angiography was performed with a JL4 and JR4 catheters. Left ventricu lar end-diastolic pressure was obtained with a JR4 catheter and a pullback was performed. Findings: Aorta 90/50 LVEDP 18 mmHg No pullback gradient from the LV to the aorta Left ventriculogram deferred due to acute kidney injury Coronary angiography: Left main is a moderate caliber vessel with normal angiographic appearance LAD is a small to moderate caliber vessel with an ostial 80% stenosis, a proximal 80% in-stent resten osis involving a previous stent and moderate diffuse disease distally with 50% restenosis involving a distal stent. D1 is a small caliber vessel with a proximal 50% stenosis Left circumflex is a moderate caliber vessel with proximal 40 to 50% stenosis OM1 is a small to moderate caliber vessel with a proximal 70% stenosis RCA is a moderate caliber vessel with diffuse disease of up to 80%. The distal RCA and RPDA are brice rely diseased. Interventional technique: Heparin was used for anticoagulation. The patient previously was on aspirin and prasugrel therapy. Through a 5 Zimbabwean JL 3.5 guide catheter a Prowater wire was placed in the distal LAD. Balloon angio plasty was performed of the in-stent restenosis involving the proximal LAD stent with a 2.0 x 12 mm b alloon and the ostial LAD was then stented with a Cinda 3.5 x 12 mm drug-eluting stent with partial extension into the left main. Post PCI angiography revealed excellent stent expansion with ISHAAN-3 fl ow in the left circumflex and the LAD. No evidence of guide or wire related complications are noted. At case completion the right groin sheath was sutured to the skin. ISHAAN Flow ISHAAN Flow (Pre-Intervention): ISHAAN-2 ISHAAN Flow (Post-Intervention): ISHAAN-3 Conclusion 1. Acute on chronic systolic and diastolic heart failure, LVEDP 18 mmHg 2. Severe three-vessel coronary artery disease with culprit lesion involving the LAD 3. Successful balloon angioplasty of the proximal LAD in-stent restenosis with a 2.0 x 12 mm balloon 4. Successful PCI of the ostial LAD and distal left main with implantation of a 3.5 x 12 mm Xience S ierra SEAN. Recommendations 1. Aspirin 81 mg daily 2. Prasugrel 10 mg daily 3. Continuation of heparin drip for the next 24 hours 4. Overall, the patient has severe coronary artery disease and given her other comorbidities she has an overall poor prognosis but continue inotropic support at this time and we will try to wean from t he ventilator over the next 48 hours after diuresis and stabilization of renal function and pulmonary status. Signed by : Sharyn Barfield, Electronically Approved : 05/18/2020 13:24:48
[2020-05-18] MEDS: carBAMazepine 200 MG TABLET PO SCH (21:00)
[2020-05-18] MEDS: ATORVASTATIN CALCIUM 40 MG TABLET. PO SCH (21:36)
[2020-05-19] VITALS (29 sets, daily range): BP systolic 88–144; BP diastolic 44–71
[2020-05-19] MEDS: PIPERACILLIN/TAZOBACTAM 2.25 GM in IV NORMAL SALINE 50ML 50 ML IV SCH ×5 (00:32→23:28)
[2020-05-19] MEDS: INSULIN LISPRO 300 UNITS/3 ML VIAL. SQ SCH ×4 (00:33→18:14)
[2020-05-19] MEDS: IV NORMAL SALINE 1000ML BAG 1,000 ML IV SCH ×2 (03:00→13:00)
[2020-05-19] MEDS: MIDAZOLAM 100mg/100ml NS BAG 100 ML IV PRN ×2 (03:13→15:40)
[2020-05-19] MEDS: HYDROCORTISONE SOD SUCC/PF 100 MG/2 ML VIAL. IVP SCH ×3 (06:02→21:00)
[2020-05-19 06:21] LABS: BASO % 0 % (0-3); EOS % 0 % (0-3); HEMATOCRIT 22.7 % (36.0-47.0); HEMOGLOBIN 7.2 g/dL (12.0-15.5); LYMPH # 1.4 x10^3/uL (1.0-4.8); LYMPH % 11 % (24-48); MEAN CORPUSCULAR HEMOGLOBIN 28 pg (25-35); MEAN CORPUSCULAR HGB CONC 32 g/dL (31-37); MEAN CORPUSCULAR VOLUME 89 fL (79-100); MONO # 0.4 x10^3/uL (0.0-1.1); MONO % 3 % (0-9); NEUT # 11.4 x10^3/uL (1.8-7.7); NEUT % 86 % (31-73); PLATELET COUNT 175 x10^3/uL (140-400); RED BLOOD COUNT 2.55 x10^6/uL (3.50-5.40); RED CELL DISTRIBUTION WIDTH 16.5 % (11.5-14.5); WHITE BLOOD COUNT 13.3 x10^3/uL (4.0-11.0)
[2020-05-19 06:39] LABS: ALBUMIN 1.5 g/dL (3.4-5.0); CALCIUM 6.7 mg/dL (8.5-10.1); CREATININE 1.7 mg/dL (0.6-1.0); GFR 29.4; PHOSPHORUS 4.2 mg/dL (2.6-4.7); POTASSIUM 3.7 mmol/L (3.5-5.1)
[2020-05-19] MEDS: ANTI-COAG MONITOR BY PHARMACY. MC PRN (07:42)
[2020-05-19] MEDS: BUDESONIDE 0.5 MG/2 ML NEBU. NEB SCH ×2 (08:00→20:00)
[2020-05-19] MEDS: IPRATRPIUM/ALBUTEROL 0.5/2.5MG 3 ML NEBU. NEB SCH ×3 (08:00→20:36)
--- NOTE | 2020-05-19 08:12 | PDOC ---
Infectious Disease Note Subjective Subjective pt is intubated now on vent ROS ROS no n/v/d/ Vital Sign Vital Signs Vital Signs Date Time Temp Pulse Resp B/P (MAP) Pulse Ox O2 Delivery O2 Flow Rate FiO2 05/19/20 07:00 76 14 107/54 (71) 99 Ventilator 05/19/20 04:00 99.2 99.2 Physical Exam PHYSICAL EXAM GENERAL: sedated on vent VITAL SIGNS: intubated on vent HEENT: Both pupils are round and reacting. No conjunctival lesion. No lesion in the mouth. NECK: Supple. No JVP. No lymphadenopathy. LUNGS: Clear. HEART: S1, S2 regular. ABDOMEN: Benign. EXTREMITIES: No edema or cyanosis. SKIN: Unremarkable. NEUROLOGIC: sedated on vent Labs Lab Laboratory Tests Test 05/18/20 09:00 05/18/20 12:28 05/18/20 12:55 05/18/20 13:01 O2 Saturation 99 % (92-99) Arterial Blood pH 7.51 (7.35-7.45) Arterial Blood pCO2 at Patient Temp 31 mmHg (35-46) Arterial Blood pO2 at Patient Temp 260 mmHg (65-108) Arterial Blood HCO3 24 mmol/L (21-28) Arterial Blood Base Excess 1 mmol/L (-3-3) FiO2 80% vent Activated Clotting Time 196 sec (92-181) 196 sec (92-181) Glucose (Fingerstick) 247 mg/dL (70-99) Test 05/18/20 17:59 05/18/20 18:15 05/19/20 00:01 05/19/20 00:31 Glucose (Fingerstick) 242 mg/dL (70-99) 315 mg/dL (70-99) Heparin Anti-Xa Act, Unfractionated 0.85 IU/mL (0.30-0.70) 0.51 IU/mL (0.30-0.70) Potassium Level 4.0 mmol/L (3.5-5.1) Test 05/19/20 06:00 White Blood Count 13.3 x10^3/uL (4.0-11.0) Red Blood Count 2.55 x10^6/uL (3.50-5.40) Hemoglobin 7.2 g/dL (12.0-15.5) Hematocrit 22.7 % (36.0-47.0) Mean Corpuscular Volume 89 fL (79-100) Mean Corpuscular Hemoglobin 28 pg (25-35) Mean Corpuscular Hemoglobin Concent 32 g/dL (31-37) Red Cell Distribution Width 16.5 % (11.5-14.5) Platelet Count 175 x10^3/uL (140-400) Neutrophils (%) (Auto) 86 % (31-73) Lymphocytes (%) (Auto) 11 % (24-48) Monocytes (%) (Auto) 3 % (0-9) Eosinophils (%) (Auto) 0 % (0-3) Basophils (%) (Auto) 0 % (0-3) Neutrophils # (Auto) 11.4 x10^3/uL (1.8-7.7) Lymphocytes # (Auto) 1.4 x10^3/uL (1.0-4.8) Monocytes # (Auto) 0.4 x10^3/uL (0.0-1.1) Eosinophils # (Auto) 0.0 x10^3/uL (0.0-0.7) Basophils # (Auto) 0.0 x10^3/uL (0.0-0.2) Heparin Anti-Xa Act, Unfractionated 0.44 IU/mL (0.30-0.70) Sodium Level 132 mmol/L (136-145) Potassium Level 3.7 mmol/L (3.5-5.1) Chloride Level 97 mmol/L (98-107) Carbon Dioxide Level 23 mmol/L (21-32) Anion Gap 12 (6-14) Blood Urea Nitrogen 42 mg/dL (7-20) Creatinine 1.7 mg/dL (0.6-1.0) Estimated GFR (Cockcroft-Gault) 29.4 Glucose Level 267 mg/dL (70-99) Glucose (Fingerstick) 261 mg/dL (70-99) Calcium Level 6.7 mg/dL (8.5-10.1) Phosphorus Level 4.2 mg/dL (2.6-4.7) Magnesium Level 2.5 mg/dL (1.8-2.4) Albumin 1.5 g/dL (3.4-5.0) Micro Microbiology 05/15/20 Blood Culture - Preliminary, Resulted NO GROWTH AFTER 1 DAY Objective Assessment IMPRESSION: 1. Respiratory failure. 2. Coronary artery disease with acute myocardial infarction. 3. Pulmonary infiltrate, pneumonia versus congestive heart failure. 4. Chronic obstructive pulmonary disease exacerbation. 5. Acute kidney injury. 6. Hypertension. 7. Leukocytosis. Plan Plan of Care cont supportive care cont antibiotics MASSIMO MIRELES MD May 19, 2020 08:12
[2020-05-19] MEDS: ARIPiprazole 2 MG TABLET PO SCH (08:13)
[2020-05-19] MEDS: PRASUGREL 10 MG TABLET. PO SCH (08:13)
[2020-05-19] MEDS: ASPIRIN CHEWABLE 81 MG TABLET. PO SCH (08:13)
[2020-05-19] MEDS: ASCORBIC ACID 500 MG TABLET PO SCH ×2 (08:13→20:59)
[2020-05-19] MEDS: PANTOPRAZOLE IV PUSH 40 MG VIAL. IVP SCH (08:13)
[2020-05-19 08:45] LABS: BASE EXCESS ABG -2 mmol/L (-3-3); HCO3 ABG 23 mmol/L (21-28); PCO2 ABG 38 mmHg (35-46); PO2 ABG 97 mmHg (65-108); SAT O2 ABG 97 % (92-99)
[2020-05-19 09:00] LABS: FIO2 ABG 40/VENT
[2020-05-19] MEDS: buPROPion XL 150 MG TAB.ER.24H. PO SCH ×2 (09:00→21:00)
[2020-05-19] MEDS: METOPROLOL SUCC 24HR ER 25 MG TAB.ER.24H. PO SCH (09:00)
[2020-05-19] MEDS: POLYETHYLENE GLYCOL 3350 17 GM PACKET. PO SCH (09:00)
[2020-05-19] MEDS: DOCUSATE SODIUM 100 MG CAPSULE. PO SCH (09:00)
--- NOTE | 2020-05-19 09:55 | RAD ---
Single view of the chest. 05/19/2020 9:11 AM Indication: Reason: chf / Spl. Instructions: / History: Comparison: Chest radiograph May 17, 2020 Findings: Endotracheal tube and enteric tube are in similar position. Right internal jugular central line is in similar position. No pneumothorax is identified. Probable small pleural effusions are pres ent. Heart is enlarged. Interstitial coarsening and central vascular congestion are similar. No acute osseous changes are identified in the interim. IMPRESSION: 1. Stable support lines and tubes 2. Cardiomegaly 3. Central vascular congestion and interstitial thickening with probable small bilateral pleural effu sions. Electronically signed by: Zac Lacey MD (05/19/2020 9:53 AM) [id number]
[2020-05-19] MEDS ORDERED: METOPROLOL TART IMMED RELEASE 25 MG TABLET. PO ONE (10:30)
--- NOTE | 2020-05-19 11:01 | PDOC ---
PULMONARY PROGRESS NOTES DATE: 05/19/20 TIME: 10:58 Subjective remains on vent 35% and PEEP of 5 Status post cardiac cath on 05/18 with PCI Low-grade fever overnight Remains on heparin drip Vitals Vital Signs Date Time Temp Pulse Resp B/P (MAP) Pulse Ox O2 Delivery O2 Flow Rate FiO2 05/19/20 10:34 79 136/65 05/19/20 10:00 14 97 Ventilator 05/19/20 08:00 99.7 99.7 Comments intubated/sedated General: Mild Distress Lungs: Other (decrease bs) Cardiovascular: S1, S2 Abdomen: Soft, Other Extremities: Other (trace edema) Skin: Warm Labs Laboratory Tests Test 05/17/20 11:45 05/17/20 13:04 05/17/20 16:40 05/17/20 17:46 O2 Saturation 96 % (92-99) 96 % (92-99) Arterial Blood pH 7.49 (7.35-7.45) 7.32 (7.35-7.45) Arterial Blood pCO2 at Patient Temp 30 mmHg (35-46) 36 mmHg (35-46) Arterial Blood pO2 at Patient Temp 89 mmHg (65-108) 102 mmHg (65-108) Arterial Blood HCO3 22 mmol/L (21-28) 18 mmol/L (21-28) Arterial Blood Base Excess -1 mmol/L (-3-3) -7 mmol/L (-3-3) FiO2 50%/ 12/10 r=16 50% 12/10 r=16 Glucose (Fingerstick) 297 mg/dL (70-99) 294 mg/dL (70-99) Test 05/17/20 19:59 05/17/20 23:39 05/18/20 05:50 05/18/20 05:52 O2 Saturation 96 % (92-99) Arterial Blood pH 7.46 (7.35-7.45) Arterial Blood pCO2 at Patient Temp 33 mmHg (35-46) Arterial Blood pO2 at Patient Temp 93 mmHg (65-108) Arterial Blood HCO3 23 mmol/L (21-28) Arterial Blood Base Excess -1 mmol/L (-3-3) FiO2 100 Glucose (Fingerstick) 308 mg/dL (70-99) 266 mg/dL (70-99) White Blood Count 16.0 x10^3/uL (4.0-11.0) Red Blood Count 2.85 x10^6/uL (3.50-5.40) Hemoglobin 8.1 g/dL (12.0-15.5) Hematocrit 25.3 % (36.0-47.0) Mean Corpuscular Volume 89 fL (79-100) Mean Corpuscular Hemoglobin 28 pg (25-35) Mean Corpuscular Hemoglobin Concent 32 g/dL (31-37) Red Cell Distribution Width 16.7 % (11.5-14.5) Platelet Count 209 x10^3/uL (140-400) Neutrophils (%) (Auto) 86 % (31-73) Lymphocytes (%) (Auto) 10 % (24-48) Monocytes (%) (Auto) 4 % (0-9) Eosinophils (%) (Auto) 0 % (0-3) Basophils (%) (Auto) 0 % (0-3) Neutrophils # (Auto) 13.7 x10^3/uL (1.8-7.7) Lymphocytes # (Auto) 1.5 x10^3/uL (1.0-4.8) Monocytes # (Auto) 0.7 x10^3/uL (0.0-1.1) Eosinophils # (Auto) 0.1 x10^3/uL (0.0-0.7) Basophils # (Auto) 0.0 x10^3/uL (0.0-0.2) Sodium Level 133 mmol/L (136-145) Potassium Level 2.9 mmol/L (3.5-5.1) Chloride Level 95 mmol/L (98-107) Carbon Dioxide Level 25 mmol/L (21-32) Anion Gap 13 (6-14) Blood Urea Nitrogen 44 mg/dL (7-20) Creatinine 1.8 mg/dL (0.6-1.0) Estimated GFR (Cockcroft-Gault) 27.5 Glucose Level 244 mg/dL (70-99) Calcium Level 7.1 mg/dL (8.5-10.1) Phosphorus Level 4.8 mg/dL (2.6-4.7) Magnesium Level 2.5 mg/dL (1.8-2.4) Albumin 1.5 g/dL (3.4-5.0) Test 05/18/20 07:39 05/18/20 09:00 05/18/20 12:28 05/18/20 12:55 Prothrombin Time 15.5 SEC (11.7-14.0) Prothromb Time International Ratio 1.3 (0.8-1.1) O2 Saturation 99 % (92-99) Arterial Blood pH 7.51 (7.35-7.45) Arterial Blood pCO2 at Patient Temp 31 mmHg (35-46) Arterial Blood pO2 at Patient Temp 260 mmHg (65-108) Arterial Blood HCO3 24 mmol/L (21-28) Arterial Blood Base Excess 1 mmol/L (-3-3) FiO2 80% vent Activated Clotting Time 196 sec (92-181) 196 sec (92-181) Test 05/18/20 13:01 05/18/20 17:59 05/18/20 18:15 05/19/20 00:01 Glucose (Fingerstick) 247 mg/dL (70-99) 242 mg/dL (70-99) Heparin Anti-Xa Act, Unfractionated 0.85 IU/mL (0.30-0.70) 0.51 IU/mL (0.30-0.70) Potassium Level 4.0 mmol/L (3.5-5.1) Test 05/19/20 00:31 05/19/20 06:00 05/19/20 08:00 Glucose (Fingerstick) 315 mg/dL (70-99) 261 mg/dL (70-99) White Blood Count 13.3 x10^3/uL (4.0-11.0) Red Blood Count 2.55 x10^6/uL (3.50-5.40) Hemoglobin 7.2 g/dL (12.0-15.5) Hematocrit 22.7 % (36.0-47.0) Mean Corpuscular Volume 89 fL (79-100) Mean Corpuscular Hemoglobin 28 pg (25-35) Mean Corpuscular Hemoglobin Concent 32 g/dL (31-37) Red Cell Distribution Width 16.5 % (11.5-14.5) Platelet Count 175 x10^3/uL (140-400) Neutrophils (%) (Auto) 86 % (31-73) Lymphocytes (%) (Auto) 11 % (24-48) Monocytes (%) (Auto) 3 % (0-9) Eosinophils (%) (Auto) 0 % (0-3) Basophils (%) (Auto) 0 % (0-3) Neutrophils # (Auto) 11.4 x10^3/uL (1.8-7.7) Lymphocytes # (Auto) 1.4 x10^3/uL (1.0-4.8) Monocytes # (Auto) 0.4 x10^3/uL (0.0-1.1) Eosinophils # (Auto) 0.0 x10^3/uL (0.0-0.7) Basophils # (Auto) 0.0 x10^3/uL (0.0-0.2) Heparin Anti-Xa Act, Unfractionated 0.44 IU/mL (0.30-0.70) Sodium Level 132 mmol/L (136-145) Potassium Level 3.7 mmol/L (3.5-5.1) Chloride Level 97 mmol/L (98-107) Carbon Dioxide Level 23 mmol/L (21-32) Anion Gap 12 (6-14) Blood Urea Nitrogen 42 mg/dL (7-20) Creatinine 1.7 mg/dL (0.6-1.0) Estimated GFR (Cockcroft-Gault) 29.4 Glucose Level 267 mg/dL (70-99) Calcium Level 6.7 mg/dL (8.5-10.1) Phosphorus Level 4.2 mg/dL (2.6-4.7) Magnesium Level 2.5 mg/dL (1.8-2.4) Albumin 1.5 g/dL (3.4-5.0) O2 Saturation 97 % (92-99) Arterial Blood pH 7.40 (7.35-7.45) Arterial Blood pCO2 at Patient Temp 38 mmHg (35-46) Arterial Blood pO2 at Patient Temp 97 mmHg (65-108) Arterial Blood HCO3 23 mmol/L (21-28) Arterial Blood Base Excess -2 mmol/L (-3-3) FiO2 40/vent Laboratory Tests Test 05/18/20 12:28 05/18/20 12:55 05/18/20 13:01 05/18/20 17:59 Activated Clotting Time 196 sec (92-181) 196 sec (92-181) Glucose (Fingerstick) 247 mg/dL (70-99) 242 mg/dL (70-99) Test 05/18/20 18:15 05/19/20 00:01 05/19/20 00:31 05/19/20 06:00 Heparin Anti-Xa Act, Unfractionated 0.85 IU/mL (0.30-0.70) 0.51 IU/mL (0.30-0.70) 0.44 IU/mL (0.30-0.70) Potassium Level 4.0 mmol/L (3.5-5.1) 3.7 mmol/L (3.5-5.1) Glucose (Fingerstick) 315 mg/dL (70-99) 261 mg/dL (70-99) White Blood Count 13.3 x10^3/uL (4.0-11.0) Red Blood Count 2.55 x10^6/uL (3.50-5.40) Hemoglobin 7.2 g/dL (12.0-15.5) Hematocrit 22.7 % (36.0-47.0) Mean Corpuscular Volume 89 fL (79-100) Mean Corpuscular Hemoglobin 28 pg (25-35) Mean Corpuscular Hemoglobin Concent 32 g/dL (31-37) Red Cell Distribution Width 16.5 % (11.5-14.5) Platelet Count 175 x10^3/uL (140-400) Neutrophils (%) (Auto) 86 % (31-73) Lymphocytes (%) (Auto) 11 % (24-48) Monocytes (%) (Auto) 3 % (0-9) Eosinophils (%) (Auto) 0 % (0-3) Basophils (%) (Auto) 0 % (0-3) Neutrophils # (Auto) 11.4 x10^3/uL (1.8-7.7) Lymphocytes # (Auto) 1.4 x10^3/uL (1.0-4.8) Monocytes # (Auto) 0.4 x10^3/uL (0.0-1.1) Eosinophils # (Auto) 0.0 x10^3/uL (0.0-0.7) Basophils # (Auto) 0.0 x10^3/uL (0.0-0.2) Sodium Level 132 mmol/L (136-145) Chloride Level 97 mmol/L (98-107) Carbon Dioxide Level 23 mmol/L (21-32) Anion Gap 12 (6-14) Blood Urea Nitrogen 42 mg/dL (7-20) Creatinine 1.7 mg/dL (0.6-1.0) Estimated GFR (Cockcroft-Gault) 29.4 Glucose Level 267 mg/dL (70-99) Calcium Level 6.7 mg/dL (8.5-10.1) Phosphorus Level 4.2 mg/dL (2.6-4.7) Magnesium Level 2.5 mg/dL (1.8-2.4) Albumin 1.5 g/dL (3.4-5.0) Test 05/19/20 08:00 O2 Saturation 97 % (92-99) Arterial Blood pH 7.40 (7.35-7.45) Arterial Blood pCO2 at Patient Temp 38 mmHg (35-46) Arterial Blood pO2 at Patient Temp 97 mmHg (65-108) Arterial Blood HCO3 23 mmol/L (21-28) Arterial Blood Base Excess -2 mmol/L (-3-3) FiO2 40/vent Medications Active Scripts Medications Dose Route/Sig Max Daily Dose Days Date Category Effient (Prasugrel Hcl) 10 Mg Tablet 10 Mg PO [id number] 30 06/10/19 Rx Furosemide 20 Mg Tablet 1 Tab PO DAILY 04/24/19 Reported Bupropion Xl (Bupropion Hcl) 150 Mg Tab.er.24h 150 Mg PO BID 04/24/19 Reported Tramadol Hcl 50 Mg Tablet 50 Mg PO Q4HRS PRN 04/24/19 Reported Cyclobenzaprine Hcl 5 Mg Tablet 5 Mg PO TID PRN 04/24/19 Reported Montelukast Sodium Tablet (Montelukast Sodium) 10 Mg Tablet 10 Mg PO HS 04/24/19 Reported Spironolactone 25 Mg Tablet 1 Tab PO DAILY 04/24/19 Reported Ranitidine Hcl 150 Mg Capsule 150 Mg PO DAILY 04/24/19 Reported Naproxen 500 Mg Tablet 1 Tab PO BID 30 04/24/19 Reported Atorvastatin Calcium 40 Mg Tablet 80 Mg PO QHS 12/02/18 Rx Abilify (Aripiprazole) 2 Mg Tablet 2 Mg PO DAILY 11/30/18 Reported Buspirone Hcl 15 Mg Tablet 15 Mg PO TID 11/30/18 Reported Tegretol (Carbamazepine) 200 Mg Tablet 200 Mg PO QHS 11/08/18 Reported Metoprolol Succinate ( Xl ) (Metoprolol Succinate) 25 Mg Tab.er.24h 12.5 Mg PO DAILY 11/08/18 Reported Klonopin (Clonazepam) 0.5 Mg Tablet 0.5 Mg PO PRN BID PRN 01/08/18 Reported Fish Oil 1,000 Mg Capsule (Dougherty-3 Fatty Acids/Fish Oil) 1 Each Capsule 1 Each PO TID 01/08/18 Reported Cymbalta (Duloxetine Hcl) 60 Mg Capsule.dr 120 Mg PO DAILY 01/08/18 Reported Loperamide (Loperamide Hcl) 2 Mg Capsule 2 Mg PO 01/04/18 Reported Zyrtec (Cetirizine Hcl) 10 Mg Tablet 1 Tab PO DAILY 01/04/18 Reported Zonisamide 100 Mg Capsule 100 Mg PO TID 12/14/17 Reported Protonix (Pantoprazole Sodium) 20 Mg Tablet.dr 40 Mg PO DAILY 12/14/17 Reported Nortriptyline Hcl 25 Mg Capsule 50 Mg PO HS 12/14/17 Reported Duoneb 0.5-3(2.5) Mg/3 Ml (Albuterol/Ipratropium) 3 Ml Ampul.neb 3 Ml NEB TID 12/14/17 Reported Multivitamins (Multivitamin) 1 Each Tablet 1 Tab PO DAILY 06/25/17 Reported Mirtazapine 15 Mg Tablet 30 Mg PO QHS 06/25/17 Reported Lisinopril 5 Mg Tablet 1 Tab PO DAILY 06/25/17 Reported Vitamin B-12 (Cyanocobalamin (Vitamin B-12)) 1,000 Mcg Tablet 1 Tab PO DAILY 06/25/17 Reported Vitamin D (Cholecalciferol (Vitamin D3)) 1,000 Unit Capsule 1 Cap PO DAILY 06/25/17 Reported Ascorbic Acid 500 Mg Tablet 500 Mg PO BID 06/25/17 Reported Voltaren (Diclofenac Sodium) 100 Gm Gel..gram. 100 Gm TP QID 02/02/15 Reported Levemir Flextouch (Insulin Detemir) 100 Unit/1 Ml Insuln.pen 36 Unit SQ BID 02/02/15 Reported Flonase Allergy Relief (Fluticasone Propionate) 9.9 Ml Ennis.susp 2 Spr NS DAILY 02/01/15 Reported Aspir 81 (Aspirin) 81 Mg Tablet.dr 81 Mg PO DAILY 09/03/13 Reported Ropinirole Hcl 1 Mg Tablet 1 Mg PO QHS 09/03/13 Reported Novolog (Insulin Aspart) 100 Unit/1 Ml Cartridge 6 Unit SQ TIDAC 09/03/13 Reported Comments CXR IMPRESSION: 1. Stable support lines and tubes 2. Cardiomegaly 3. Central vascular congestion and interstitial thickening with probable small bilateral pleural effusions. Impression . 1. Acute hypoxemic respiratory failure, multifactorial in etiology including shock, myocardial infarction, chronic obstructive pulmonary disease with acute exacerbation, no pulmonary embolism--- now on vent 2. Abnormal CT of the chest./basal atelectasis 3. Elevated troponin, non-ST elevation myocardial infarction. 4. Shock ,cardiac 5. Acute kidney injury. 6. Chronic kidney disease. 7. Chest pain. 8. Chronic obstructive pulmonary disease with acute exacerbation. 9. Obesity, obstructive sleep apnea-hypopnea syndrome. Conclusion 1. Acute on chronic systolic and diastolic heart failure, LVEDP 18 mmHg 2. Severe three-vessel coronary artery disease with culprit lesion involving the LAD 3. Successful balloon angioplasty of the proximal LAD in-stent restenosis with a 2.0 x 12 mm balloon 4. Successful PCI of the ostial LAD and distal left main with implantation of a 3.5 x 12 mm Xience Cinda SEAN. Recommendations 1. Aspirin 81 mg daily 2. Prasugrel 10 mg daily 3. Continuation of heparin drip for the next 24 hours 4. Overall, the patient has severe coronary artery disease and given her other comorbidities she has an overall poor prognosis but continue inotropic support at this time and we will try to wean from the ventilator over the next 48 hours after diuresis and stabilization of renal function and pulmonary status. Plan . PLAN: Continue vent support Fi02 35% and PEEP of 5 Follow CXR/ABG--- no changes today In addition to propofol from [employer] and plan for pressure support trial in the morning NEBS Continue Solu-cortef, with slow taper Continue empiric ABX per ID-- on zyvox and zosyn Follow cultures Follow cardiology recs--status post PCI on 05/18/2020 to the LAD, continue heparin follow other cardiology recommendations Follow nephrology recs-- monitor renal function Continue tube feeding for nutritional support DVT/GI PPX D/W RN and RT CC time 30 minutes, No overlap BRAULIO SMITH MD May 19, 2020 11:01
--- NOTE | 2020-05-19 11:11 | PDOC ---
[employer] PROGRESS NOTE Date of Service DOS: DATE: 05/19/20 TIME: 11:09 Chief Complaint Chief Complaint sepsis, severe sepsis, shock Acute hypoxemic respiratory failure, on COPD and ARIANNA currently on BiPAP, low threshold for intubation Severe triple-vessel disease status post LAD stent. Patient poor prognosis and poor surgical candidate date for CABG COVID risk, pt initial swab is negative acute acidosis on CKD 4, renal failure, DKA, acute acidosis with hyperosmolar syndrome, weaned off of insulin drip troponinemia, NSTEMI 2, demand, obese, BMI 39, some pickwickian habitus constipation, on chronic abdominal hernia, with abdominal pain History of Present Illness History of Present Illness 05/19/2020 No acute events overnight. Status post left heart cath. Still sedated and intubated. Vent settings 14/450/35 %/5. ABG: pH 7.4, PCO2 38, PO2 is 97, HCO3 23. Patient's chart, labs, images were reviewed and discussed with RN 05/18/2020 No acute events overnight. T-max of 99.8. Patient was intubated yesterday curr ent ventilator settings of 18/500/80%/6. Potassium 2.9 today replace with 100 mEq of IV potassium. pH 7.51, PCO2 31, PO2 260, HCO3 24. Patient's chart, labs, images were reviewed and discussed with RN 05/17/2020 No acute events overnight. Patient remains afebrile. Tolerating BiPAP for now and saturating 100%.> 50% time spent in patient chart, labs, and imaging review and in discussion with RN and MARTIN 74 year old female admit for chest pain last night, pain started acutely while walking her dog, mid chest pain with tightness. she came by ambulance, and was newly hypoxic to mid 80's in the ER. she has a Hx CAD and stents, CV team called for EKG change, Dr. Joshua saw the pt in the ER, admit to ICU, broad spectrum abx given, CT angio done for pain, showed large amt of stool, no clear PNA Vitals/I&O Vitals/I&O: Vital Signs Date Time Temp Pulse Resp B/P (MAP) Pulse Ox O2 Delivery O2 Flow Rate FiO2 05/19/20 10:34 79 136/65 05/19/20 10:00 14 97 Ventilator 05/19/20 08:00 99.7 99.7 I & O 05/18/20 05/18/20 05/19/20 15:00 23:00 07:00 Intake Total 580 ml 655.11 ml 1919 ml Output Total 825 ml 435 ml 290 ml Balance -245 ml 220.11 ml 1629 ml Physical Exam Physical Exam: GENERAL: sedated on vent VITAL SIGNS: intubated on vent HEENT: Both pupils are round and reacting. No conjunctival lesion. No lesion in the mouth. NECK: Supple. No JVP. No lymphadenopathy. LUNGS: Clear. HEART: S1, S2 regular. ABDOMEN: Benign. EXTREMITIES: No edema or cyanosis. SKIN: Unremarkable. NEUROLOGIC: sedated on vent General: Alert, Cooperative, mild distress Heart: Regular rate Lungs: Other (decrease bs) Abdomen: Normal bowel sounds Extremities: No cyanosis, No edema Skin: No rashes Labs Labs: Laboratory Tests Test 05/18/20 12:28 05/18/20 12:55 05/18/20 13:01 05/18/20 17:59 Activated Clotting Time 196 sec (92-181) 196 sec (92-181) Glucose (Fingerstick) 247 mg/dL (70-99) 242 mg/dL (70-99) Test 05/18/20 18:15 05/19/20 00:01 05/19/20 00:31 05/19/20 06:00 Heparin Anti-Xa Act, Unfractionated 0.85 IU/mL (0.30-0.70) 0.51 IU/mL (0.30-0.70) 0.44 IU/mL (0.30-0.70) Potassium Level 4.0 mmol/L (3.5-5.1) 3.7 mmol/L (3.5-5.1) Glucose (Fingerstick) 315 mg/dL (70-99) 261 mg/dL (70-99) White Blood Count 13.3 x10^3/uL (4.0-11.0) Red Blood Count 2.55 x10^6/uL (3.50-5.40) Hemoglobin 7.2 g/dL (12.0-15.5) Hematocrit 22.7 % (36.0-47.0) Mean Corpuscular Volume 89 fL (79-100) Mean Corpuscular Hemoglobin 28 pg (25-35) Mean Corpuscular Hemoglobin Concent 32 g/dL (31-37) Red Cell Distribution Width 16.5 % (11.5-14.5) Platelet Count 175 x10^3/uL (140-400) Neutrophils (%) (Auto) 86 % (31-73) Lymphocytes (%) (Auto) 11 % (24-48) Monocytes (%) (Auto) 3 % (0-9) Eosinophils (%) (Auto) 0 % (0-3) Basophils (%) (Auto) 0 % (0-3) Neutrophils # (Auto) 11.4 x10^3/uL (1.8-7.7) Lymphocytes # (Auto) 1.4 x10^3/uL (1.0-4.8) Monocytes # (Auto) 0.4 x10^3/uL (0.0-1.1) Eosinophils # (Auto) 0.0 x10^3/uL (0.0-0.7) Basophils # (Auto) 0.0 x10^3/uL (0.0-0.2) Sodium Level 132 mmol/L (136-145) Chloride Level 97 mmol/L (98-107) Carbon Dioxide Level 23 mmol/L (21-32) Anion Gap 12 (6-14) Blood Urea Nitrogen 42 mg/dL (7-20) Creatinine 1.7 mg/dL (0.6-1.0) Estimated GFR (Cockcroft-Gault) 29.4 Glucose Level 267 mg/dL (70-99) Calcium Level 6.7 mg/dL (8.5-10.1) Phosphorus Level 4.2 mg/dL (2.6-4.7) Magnesium Level 2.5 mg/dL (1.8-2.4) Albumin 1.5 g/dL (3.4-5.0) Test 05/19/20 08:00 O2 Saturation 97 % (92-99) Arterial Blood pH 7.40 (7.35-7.45) Arterial Blood pCO2 at Patient Temp 38 mmHg (35-46) Arterial Blood pO2 at Patient Temp 97 mmHg (65-108) Arterial Blood HCO3 23 mmol/L (21-28) Arterial Blood Base Excess -2 mmol/L (-3-3) FiO2 40/vent Comment Review of Relevant I have reviewed the following items danisha (where applicable) has been applied. Medications: Current Medications Medications (Trade) Dose Ordered Sig/Morgan Route PRN Reason Start Time Stop Time Status Last Admin Dose Admin Nitroglycerin (Nitroglycerin) 200 mcg 1X ONCE IART 05/18/20 12:15 05/18/20 12:18 DC 05/18/20 12:15 Heparin Sodium (Porcine) (Heparin Sodium) 7,000 unit 1X ONCE IART 05/18/20 12:15 05/18/20 12:18 DC 05/18/20 12:15 Heparin Sodium/ Sodium Chloride (HEPARIN for ARTERIAL LINE FLUSH) 1,000 unit 1X ONCE IART 05/18/20 12:15 05/18/20 12:18 DC 05/18/20 12:15 Prasugrel (Effient) 30 mg 1X ONCE PO 05/18/20 12:15 05/18/20 12:18 DC 05/18/20 12:15 Heparin Sodium (Porcine) (Heparin Sodium) 2,000 unit 1X ONCE IV 05/18/20 12:15 05/18/20 12:18 DC 05/18/20 12:15 Heparin Sodium/ Dextrose 250 ml @ 0 mls/hr CONT PRN IV PER PROTOCOL 05/18/20 12:15 05/18/20 12:19 Aspirin (Aspirin Chewable) 81 mg [id number] PO 05/19/20 08:00 05/19/20 08:13 Metoprolol Tartrate (Lopressor) 12.5 mg 1X ONCE PO 05/19/20 10:30 05/19/20 10:31 DC 05/19/20 10:34 Justifications for Admission Other Justification RANJITH PACHECO MD May 19, 2020 11:11
[2020-05-19 11:57] LABS: HEMATOCRIT 23.3 % (36.0-47.0); HEMOGLOBIN 7.4 g/dL (12.0-15.5); RED BLOOD COUNT 2.61 x10^6/uL (3.50-5.40); RED CELL DISTRIBUTION WIDTH 16.2 % (11.5-14.5); WHITE BLOOD COUNT 12.5 x10^3/uL (4.0-11.0)
--- NOTE | 2020-05-19 11:59 | PDOC ---
DARRION GARCIA [employer]URAL RESOURCE MANAGER 05/19/20 1159: CARDIO Progress Notes Date and Time Date of Service 05/19/2020 Time of Evaluation 1020 Subjective Subjective: Other (sedated) Vitals Vitals Vital Signs Date Time Temp Pulse Resp B/P (MAP) Pulse Ox O2 Delivery O2 Flow Rate FiO2 05/19/20 11:28 98 Ventilator 05/19/20 11:00 72 14 118/59 (78) 05/19/20 08:00 99.7 99.7 Weight Weight [ ] Input and Output Intake and Output Intake and Output 05/19/20 07:00 Intake Total 3154.11 ml Output Total 1550 ml Balance 1604.11 ml IV Total 2449.11 ml Tube Feeding 505 ml Other 200 ml Output Urine Total 1550 ml # Bowel Movements 1 Laboratory Labs Laboratory Tests Test 05/18/20 12:28 05/18/20 12:55 05/18/20 13:01 05/18/20 17:59 Activated Clotting Time 196 sec (92-181) 196 sec (92-181) Glucose (Fingerstick) 247 mg/dL (70-99) 242 mg/dL (70-99) Test 05/18/20 18:15 05/19/20 00:01 05/19/20 00:31 05/19/20 06:00 Heparin Anti-Xa Act, Unfractionated 0.85 IU/mL (0.30-0.70) 0.51 IU/mL (0.30-0.70) 0.44 IU/mL (0.30-0.70) Potassium Level 4.0 mmol/L (3.5-5.1) 3.7 mmol/L (3.5-5.1) Glucose (Fingerstick) 315 mg/dL (70-99) 261 mg/dL (70-99) White Blood Count 13.3 x10^3/uL (4.0-11.0) Red Blood Count 2.55 x10^6/uL (3.50-5.40) Hemoglobin 7.2 g/dL (12.0-15.5) Hematocrit 22.7 % (36.0-47.0) Mean Corpuscular Volume 89 fL (79-100) Mean Corpuscular Hemoglobin 28 pg (25-35) Mean Corpuscular Hemoglobin Concent 32 g/dL (31-37) Red Cell Distribution Width 16.5 % (11.5-14.5) Platelet Count 175 x10^3/uL (140-400) Neutrophils (%) (Auto) 86 % (31-73) Lymphocytes (%) (Auto) 11 % (24-48) Monocytes (%) (Auto) 3 % (0-9) Eosinophils (%) (Auto) 0 % (0-3) Basophils (%) (Auto) 0 % (0-3) Neutrophils # (Auto) 11.4 x10^3/uL (1.8-7.7) Lymphocytes # (Auto) 1.4 x10^3/uL (1.0-4.8) Monocytes # (Auto) 0.4 x10^3/uL (0.0-1.1) Eosinophils # (Auto) 0.0 x10^3/uL (0.0-0.7) Basophils # (Auto) 0.0 x10^3/uL (0.0-0.2) Sodium Level 132 mmol/L (136-145) Chloride Level 97 mmol/L (98-107) Carbon Dioxide Level 23 mmol/L (21-32) Anion Gap 12 (6-14) Blood Urea Nitrogen 42 mg/dL (7-20) Creatinine 1.7 mg/dL (0.6-1.0) Estimated GFR (Cockcroft-Gault) 29.4 Glucose Level 267 mg/dL (70-99) Calcium Level 6.7 mg/dL (8.5-10.1) Phosphorus Level 4.2 mg/dL (2.6-4.7) Magnesium Level 2.5 mg/dL (1.8-2.4) Albumin 1.5 g/dL (3.4-5.0) Test 05/19/20 08:00 05/19/20 11:44 O2 Saturation 97 % (92-99) Arterial Blood pH 7.40 (7.35-7.45) Arterial Blood pCO2 at Patient Temp 38 mmHg (35-46) Arterial Blood pO2 at Patient Temp 97 mmHg (65-108) Arterial Blood HCO3 23 mmol/L (21-28) Arterial Blood Base Excess -2 mmol/L (-3-3) FiO2 40/vent Glucose (Fingerstick) 327 mg/dL (70-99) Microbiology Micro Microbiology 05/15/20 Blood Culture - Preliminary, Resulted NO GROWTH AFTER 3 DAYS Review of Systems Constitutional: yes: other (UNABLE TO OBTAIN) Physical Exam HEENT: Neck Supple W Full Motion Chest: Symmetric LUNGS: Other (intubated, vent) Heart: RRR (SR), other (distant heart tones ) Abdomen: Other (obese) Extremities: Other (1+ bilateral LE edema ) Neurology: other (SEDATED) Other Exams right groin arteriotomy site intact, no hematoma or swelling, no oozing. Neurovascular status to bilateral LE intact. Assessment Assessment 1. Acute respiratory failure with a/c CHF, AECOPD, and CAD 2. Acute on chronic combined diastolic/systolic CHF 3. Abdominal pain; CT without acute findings 4. NSTEMI: 3VD. Peaked trop 45. POD#1 S/P PCI/SEAN to ostial LAD and distal left main with PTCA to proximal LAD ISR 5. Ischemic cardiomyopathy; Echo showed LVEF 45-50% 6. CAD s/p PCI/stent; Cath 06/12- LAD with ostial 50% stenosis, mid 100% ISR, and distal 90% ISR. s/p successful PTCA of the LAD. Given the small caliber of the vessels, repeat stenting was deferred. 7. Leukocytosis, lactic acidosis, periodic fever. ? sepsis. Antibiotics per ID 8. HTN: BP normotensive now 9. Hyperlipidemia; LDL 25 10. AVIVA on CKD; improved 11. Hypokalemia; replaced 12. Anemia: no obvious bleed, arteriotomy site good. Hgb at 7.2 Recommendations 1. Continue vent support per pulmonary 2. Lasix therapy 3. Secondary prevention. ASA/effient. Await repeat Hgb, may need to stop heparin then DC femoral sheath once off heparin. 4. Statin therapy 5. Cardiac rehab 6. Now off levophed. Start on low dose metoprolol. 7. Hemogram. Will transfuse if Hgb remains in the 7s 8. Supportive care Justicifation of Admission Dx: Justifications for Admission: Justification of Admission Dx: N/A SHARYN BARFIELD MD 05/19/20 1728: CARDIO Progress Notes Plan Plan Patient seen and examined. Agree with above nurse practitioner note. Continue current medical therapy. Plan for extubation tomorrow. DARRION GARCIA [employer]URAL RESOURCE MANAGER May 19, 2020 11:59 SHARYN BARFIELD MD May 19, 2020 17:28
[2020-05-19] MEDS ORDERED: ALBUMIN HUMAN 25% 100 ML IV ONE (12:00)
[2020-05-19] MEDS ORDERED: FUROSEMIDE 40 MG/4 ML VIAL. IVP ONE ×2 (12:00→14:45)
--- NOTE | 2020-05-19 12:24 | PDOC ---
Renal-Progress Notes Subjective Notes Notes STILL ON THE VENT History of Present Illness Hx of present illness STABLE Vitals Vitals Vital Signs Date Time Temp Pulse Resp B/P (MAP) Pulse Ox O2 Delivery O2 Flow Rate FiO2 05/19/20 11:28 98 Ventilator 05/19/20 11:00 72 14 118/59 (78) 05/19/20 08:00 99.7 99.7 Weight Weight [ ] I.O. Intake and Output Intake and Output 05/19/20 07:00 Intake Total 3154.11 ml Output Total 1550 ml Balance 1604.11 ml IV Total 2449.11 ml Tube Feeding 505 ml Other 200 ml Output Urine Total 1550 ml # Bowel Movements 1 Labs Labs Laboratory Tests Test 05/18/20 12:28 05/18/20 12:55 05/18/20 13:01 05/18/20 17:59 Activated Clotting Time 196 sec (92-181) 196 sec (92-181) Glucose (Fingerstick) 247 mg/dL (70-99) 242 mg/dL (70-99) Test 05/18/20 18:15 05/19/20 00:01 05/19/20 00:31 05/19/20 06:00 Heparin Anti-Xa Act, Unfractionated 0.85 IU/mL (0.30-0.70) 0.51 IU/mL (0.30-0.70) 0.44 IU/mL (0.30-0.70) Potassium Level 4.0 mmol/L (3.5-5.1) 3.7 mmol/L (3.5-5.1) Glucose (Fingerstick) 315 mg/dL (70-99) 261 mg/dL (70-99) White Blood Count 13.3 x10^3/uL (4.0-11.0) Red Blood Count 2.55 x10^6/uL (3.50-5.40) Hemoglobin 7.2 g/dL (12.0-15.5) Hematocrit 22.7 % (36.0-47.0) Mean Corpuscular Volume 89 fL (79-100) Mean Corpuscular Hemoglobin 28 pg (25-35) Mean Corpuscular Hemoglobin Concent 32 g/dL (31-37) Red Cell Distribution Width 16.5 % (11.5-14.5) Platelet Count 175 x10^3/uL (140-400) Neutrophils (%) (Auto) 86 % (31-73) Lymphocytes (%) (Auto) 11 % (24-48) Monocytes (%) (Auto) 3 % (0-9) Eosinophils (%) (Auto) 0 % (0-3) Basophils (%) (Auto) 0 % (0-3) Neutrophils # (Auto) 11.4 x10^3/uL (1.8-7.7) Lymphocytes # (Auto) 1.4 x10^3/uL (1.0-4.8) Monocytes # (Auto) 0.4 x10^3/uL (0.0-1.1) Eosinophils # (Auto) 0.0 x10^3/uL (0.0-0.7) Basophils # (Auto) 0.0 x10^3/uL (0.0-0.2) Sodium Level 132 mmol/L (136-145) Chloride Level 97 mmol/L (98-107) Carbon Dioxide Level 23 mmol/L (21-32) Anion Gap 12 (6-14) Blood Urea Nitrogen 42 mg/dL (7-20) Creatinine 1.7 mg/dL (0.6-1.0) Estimated GFR (Cockcroft-Gault) 29.4 Glucose Level 267 mg/dL (70-99) Calcium Level 6.7 mg/dL (8.5-10.1) Phosphorus Level 4.2 mg/dL (2.6-4.7) Magnesium Level 2.5 mg/dL (1.8-2.4) Albumin 1.5 g/dL (3.4-5.0) Test 05/19/20 08:00 05/19/20 11:40 05/19/20 11:44 O2 Saturation 97 % (92-99) Arterial Blood pH 7.40 (7.35-7.45) Arterial Blood pCO2 at Patient Temp 38 mmHg (35-46) Arterial Blood pO2 at Patient Temp 97 mmHg (65-108) Arterial Blood HCO3 23 mmol/L (21-28) Arterial Blood Base Excess -2 mmol/L (-3-3) FiO2 40/vent White Blood Count 12.5 x10^3/uL (4.0-11.0) Red Blood Count 2.61 x10^6/uL (3.50-5.40) Hemoglobin 7.4 g/dL (12.0-15.5) Hematocrit 23.3 % (36.0-47.0) Mean Corpuscular Volume 89 fL (79-100) Mean Corpuscular Hemoglobin 28 pg (25-35) Mean Corpuscular Hemoglobin Concent 32 g/dL (31-37) Red Cell Distribution Width 16.2 % (11.5-14.5) Platelet Count 180 x10^3/uL (140-400) Glucose (Fingerstick) 327 mg/dL (70-99) Micro Micro Microbiology 05/15/20 Blood Culture - Preliminary, Resulted NO GROWTH AFTER 3 DAYS Review of Systems Constitutional: yes: other (UNABLE TO OBTAIN) Physical Exam General Appearance: no apparent distress Skin: warm Respiratory: decreased breath sounds Heart: S1S2 Abdomen: soft, bowel sounds present Genitourinary: bladder flat Extremities: pulses present Neurology: other (SEDATED) Assessment Assessment IMP AVIVA-IMPROVING WITH CR DOWN TO 1.7 FROM 2.5 AMI - S/P PTCA AND STENT CKD STAGE 3 WITH CR ABOUT 1.5 ?CARDIAC INJURY-TROPONIN IS UP HYPOKALEMIA-REPLACED HYPONATREMIA-BETTER ACUTE RESP FAILURE PROBABLE PNEUMONIA LEUCOCYTOSIS DM II PLAN SALINE ANTIBIOTICS PRESSORS NEEDED VENT SUPPORT WILL FOLLOW ORION ARAYA MD May 19, 2020 12:24
[2020-05-19] MEDS ORDERED: POTASSIUM CHLORIDE 20MEQ 100 ML IV ONE (12:30)
[2020-05-19] MEDS: PROPOFOL 100 ML IV PRN ×2 (15:52→23:30)
--- NOTE | 2020-05-19 16:19 | NUR ---
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 SS reviewed pt chart and discussed with pt RN. Pt is currently on the vent at 35%. Pt had PCI on 05/18/2020. Pt on IV Zosyn and IV Zyvox. Pt receiving Heparin through art line. COVID19 negative. SS will continue to follow for discharge planning.
[2020-05-19] MEDS ORDERED: INSULIN LISPRO 300 UNITS/3 ML VIAL. SQ ONE (18:15)
[2020-05-19] MEDS: ATORVASTATIN CALCIUM 40 MG TABLET. PO SCH (20:59)
[2020-05-19] MEDS: carBAMazepine 200 MG TABLET PO SCH (20:59)
[2020-05-19] MEDS ORDERED: INSULIN GLARGINE SYRINGE. SQ SCH (21:00)
[2020-05-19] MEDS: METOPROLOL TART IMMED RELEASE 25 MG TABLET. PO SCH (21:00)
[2020-05-20] VITALS (30 sets, daily range): BP systolic 106–175; BP diastolic 56–102
[2020-05-20] MEDS: INSULIN LISPRO 300 UNITS/3 ML VIAL. SQ SCH ×4 (00:07→18:02)
[2020-05-20] MEDS ORDERED: INSULIN LISPRO 300 UNITS/3 ML VIAL. SQ ONE (00:30)
--- NOTE | 2020-05-20 04:17 | RAD ---
XR CHEST 1V Clinical Indication: Reason: resp. fail 109 / Spl. Instructions: / History: Comparison: AP chest, prior day. Findings: The endotracheal tube tip is 1.4 cm superior to the vianca. Enteric tube is in the stomach, tip outsi de of [id number]. Right IJ central line, tip in distal SVC. Cardiomediastinal silhouette is stable . Increased interstitial markings are unchanged. There are left greater than right airspace opacities that are unchanged. No pneumothorax. No definite pleural effusion. Stable deformity of the proximal right humerus. IMPRESSION: 1. Life support devices as above. 2. Moderate bibasilar airspace opacities and diffuse interstitial opacities are unchanged. Electronically signed by: Oseas Meredith MD (05/20/2020 4:15 AM) [facility]
[2020-05-20] MEDS: HYDROCORTISONE SOD SUCC/PF 100 MG/2 ML VIAL. IVP SCH ×3 (05:31→21:24)
[2020-05-20] MEDS: PIPERACILLIN/TAZOBACTAM 2.25 GM in IV NORMAL SALINE 50ML 50 ML IV SCH ×3 (05:31→18:00)
[2020-05-20 06:16] LABS: BASO % 0 % (0-3); EOS % 0 % (0-3); HEMATOCRIT 25.9 % (36.0-47.0); HEMOGLOBIN 8.3 g/dL (12.0-15.5); LYMPH # 1.8 x10^3/uL (1.0-4.8); LYMPH % 12 % (24-48); MEAN CORPUSCULAR HEMOGLOBIN 28 pg (25-35); MEAN CORPUSCULAR HGB CONC 32 g/dL (31-37); MEAN CORPUSCULAR VOLUME 87 fL (79-100); MONO # 0.5 x10^3/uL (0.0-1.1); MONO % 3 % (0-9); NEUT # 12.7 x10^3/uL (1.8-7.7); NEUT % 84 % (31-73); PLATELET COUNT 166 x10^3/uL (140-400); RED BLOOD COUNT 2.99 x10^6/uL (3.50-5.40); RED CELL DISTRIBUTION WIDTH 18.2 % (11.5-14.5); WHITE BLOOD COUNT 15.1 x10^3/uL (4.0-11.0)
[2020-05-20 06:24] LABS: ALBUMIN 1.9 g/dL (3.4-5.0); CREATININE 1.8 mg/dL (0.6-1.0); GFR 27.5; POTASSIUM 3.4 mmol/L (3.5-5.1)
[2020-05-20] MEDS ORDERED: POTASSIUM BICARB 20 MEQ EFFERVESCENT TABLET. PO ONE (07:15)
[2020-05-20] MEDS: IPRATRPIUM/ALBUTEROL 0.5/2.5MG 3 ML NEBU. NEB SCH ×3 (07:17→20:30)
[2020-05-20] MEDS: BUDESONIDE 0.5 MG/2 ML NEBU. NEB SCH ×2 (07:17→20:30)
[2020-05-20] MEDS: PROPOFOL 100 ML IV PRN ×2 (07:22→09:19)
[2020-05-20 07:24] LABS: BASE EXCESS ABG 0 mmol/L (-3-3); HCO3 ABG 25 mmol/L (21-28); PCO2 ABG 45 mmHg (35-46); PO2 ABG 84 mmHg (65-108); SAT O2 ABG 95 % (92-99)
[2020-05-20] MEDS: buPROPion XL 150 MG TAB.ER.24H. PO SCH ×2 (07:25→20:40)
[2020-05-20] MEDS: DOCUSATE SODIUM 100 MG CAPSULE. PO SCH (07:25)
[2020-05-20] MEDS: POLYETHYLENE GLYCOL 3350 17 GM PACKET. PO SCH ×2 (07:25→08:05)
[2020-05-20] MEDS: PANTOPRAZOLE IV PUSH 40 MG VIAL. IVP SCH (08:00)
[2020-05-20] MEDS: FUROSEMIDE 40 MG/4 ML VIAL. IVP SCH (08:00)
[2020-05-20] MEDS: ASCORBIC ACID 500 MG TABLET PO SCH ×2 (08:01→20:40)
[2020-05-20] MEDS: ARIPiprazole 2 MG TABLET PO SCH (08:01)
[2020-05-20] MEDS: ASPIRIN CHEWABLE 81 MG TABLET. PO SCH (08:01)
[2020-05-20] MEDS: METOPROLOL TART IMMED RELEASE 25 MG TABLET. PO SCH ×2 (08:02→20:40)
[2020-05-20] MEDS: PRASUGREL 10 MG TABLET. PO SCH (08:03)
--- NOTE | 2020-05-20 08:03 | PDOC ---
Infectious Disease Note Subjective Subjective pt is intubated on vent ROS ROS no n/v/d/fever Vital Sign Vital Signs Vital Signs Date Time Temp Pulse Resp B/P (MAP) Pulse Ox O2 Delivery O2 Flow Rate FiO2 05/20/20 07:10 97 Ventilator 05/20/20 06:00 63 14 124/59 (80) 05/20/20 04:00 98.5 98.5 Physical Exam PHYSICAL EXAM GENERAL: sedated on vent VITAL SIGNS: intubated on vent HEENT: Both pupils are round and reacting. No conjunctival lesion. No lesion in the mouth. NECK: Supple. No JVP. No lymphadenopathy. LUNGS: Clear. HEART: S1, S2 regular. ABDOMEN: Benign. EXTREMITIES: No edema or cyanosis. SKIN: Unremarkable. NEUROLOGIC: sedated on vent Labs Lab Laboratory Tests Test 05/19/20 11:40 05/19/20 11:44 05/19/20 21:08 05/19/20 23:22 White Blood Count 12.5 x10^3/uL (4.0-11.0) Red Blood Count 2.61 x10^6/uL (3.50-5.40) Hemoglobin 7.4 g/dL (12.0-15.5) Hematocrit 23.3 % (36.0-47.0) Mean Corpuscular Volume 89 fL (79-100) Mean Corpuscular Hemoglobin 28 pg (25-35) Mean Corpuscular Hemoglobin Concent 32 g/dL (31-37) Red Cell Distribution Width 16.2 % (11.5-14.5) Platelet Count 180 x10^3/uL (140-400) Glucose (Fingerstick) 327 mg/dL (70-99) 358 mg/dL (70-99) 393 mg/dL (70-99) Test 05/20/20 05:30 White Blood Count 15.1 x10^3/uL (4.0-11.0) Red Blood Count 2.99 x10^6/uL (3.50-5.40) Hemoglobin 8.3 g/dL (12.0-15.5) Hematocrit 25.9 % (36.0-47.0) Mean Corpuscular Volume 87 fL (79-100) Mean Corpuscular Hemoglobin 28 pg (25-35) Mean Corpuscular Hemoglobin Concent 32 g/dL (31-37) Red Cell Distribution Width 18.2 % (11.5-14.5) Platelet Count 166 x10^3/uL (140-400) Neutrophils (%) (Auto) 84 % (31-73) Lymphocytes (%) (Auto) 12 % (24-48) Monocytes (%) (Auto) 3 % (0-9) Eosinophils (%) (Auto) 0 % (0-3) Basophils (%) (Auto) 0 % (0-3) Neutrophils # (Auto) 12.7 x10^3/uL (1.8-7.7) Lymphocytes # (Auto) 1.8 x10^3/uL (1.0-4.8) Monocytes # (Auto) 0.5 x10^3/uL (0.0-1.1) Eosinophils # (Auto) 0.0 x10^3/uL (0.0-0.7) Basophils # (Auto) 0.0 x10^3/uL (0.0-0.2) Sodium Level 134 mmol/L (136-145) Potassium Level 3.4 mmol/L (3.5-5.1) Chloride Level 97 mmol/L (98-107) Carbon Dioxide Level 24 mmol/L (21-32) Anion Gap 13 (6-14) Blood Urea Nitrogen 51 mg/dL (7-20) Creatinine 1.8 mg/dL (0.6-1.0) Estimated GFR (Cockcroft-Gault) 27.5 Glucose Level 304 mg/dL (70-99) Glucose (Fingerstick) 321 mg/dL (70-99) Calcium Level 7.0 mg/dL (8.5-10.1) Phosphorus Level 4.0 mg/dL (2.6-4.7) Magnesium Level 2.2 mg/dL (1.8-2.4) Albumin 1.9 g/dL (3.4-5.0) Micro Microbiology 05/15/20 Blood Culture - Preliminary, Resulted NO GROWTH AFTER 1 DAY Objective Assessment IMPRESSION: 1. Respiratory failure. 2. Coronary artery disease with acute myocardial infarction. 3. Pulmonary infiltrate, pneumonia versus congestive heart failure. 4. Chronic obstructive pulmonary disease exacerbation. 5. Acute kidney injury. 6. Hypertension. 7. Leukocytosis. 8 CAD s/p angioplasty Plan Plan of Care cont supportive care cont antibiotics,,d/c zyvox cont zosyn for now extubation likely soon MASSIMO MIRELES MD May 20, 2020 08:03
[2020-05-20 08:37] LABS: FIO2 ABG 35%+5
--- NOTE | 2020-05-20 10:27 | PDOC ---
PULMONARY PROGRESS NOTES DATE: 05/20/20 TIME: 10:25 Subjective remains on vent 35% and PEEP of 5 Status post cardiac cath on 05/18 with PCI Low-grade fever overnight Remains on heparin drip Vitals Vital Signs Date Time Temp Pulse Resp B/P (MAP) Pulse Ox O2 Delivery O2 Flow Rate FiO2 05/20/20 10:00 67 14 147/65 (92) 99 Ventilator 05/20/20 08:00 98.7 98.7 Comments intubated/sedated General: Mild Distress Lungs: Other (decrease bs) Cardiovascular: S1, S2 Abdomen: Soft, Other Extremities: Other (trace edema) Skin: Warm Labs Laboratory Tests Test 05/18/20 12:28 05/18/20 12:55 05/18/20 13:01 05/18/20 17:59 Activated Clotting Time 196 sec (92-181) 196 sec (92-181) Glucose (Fingerstick) 247 mg/dL (70-99) 242 mg/dL (70-99) Test 05/18/20 18:15 05/19/20 00:01 05/19/20 00:31 05/19/20 06:00 Heparin Anti-Xa Act, Unfractionated 0.85 IU/mL (0.30-0.70) 0.51 IU/mL (0.30-0.70) 0.44 IU/mL (0.30-0.70) Potassium Level 4.0 mmol/L (3.5-5.1) 3.7 mmol/L (3.5-5.1) Glucose (Fingerstick) 315 mg/dL (70-99) 261 mg/dL (70-99) White Blood Count 13.3 x10^3/uL (4.0-11.0) Red Blood Count 2.55 x10^6/uL (3.50-5.40) Hemoglobin 7.2 g/dL (12.0-15.5) Hematocrit 22.7 % (36.0-47.0) Mean Corpuscular Volume 89 fL (79-100) Mean Corpuscular Hemoglobin 28 pg (25-35) Mean Corpuscular Hemoglobin Concent 32 g/dL (31-37) Red Cell Distribution Width 16.5 % (11.5-14.5) Platelet Count 175 x10^3/uL (140-400) Neutrophils (%) (Auto) 86 % (31-73) Lymphocytes (%) (Auto) 11 % (24-48) Monocytes (%) (Auto) 3 % (0-9) Eosinophils (%) (Auto) 0 % (0-3) Basophils (%) (Auto) 0 % (0-3) Neutrophils # (Auto) 11.4 x10^3/uL (1.8-7.7) Lymphocytes # (Auto) 1.4 x10^3/uL (1.0-4.8) Monocytes # (Auto) 0.4 x10^3/uL (0.0-1.1) Eosinophils # (Auto) 0.0 x10^3/uL (0.0-0.7) Basophils # (Auto) 0.0 x10^3/uL (0.0-0.2) Sodium Level 132 mmol/L (136-145) Chloride Level 97 mmol/L (98-107) Carbon Dioxide Level 23 mmol/L (21-32) Anion Gap 12 (6-14) Blood Urea Nitrogen 42 mg/dL (7-20) Creatinine 1.7 mg/dL (0.6-1.0) Estimated GFR (Cockcroft-Gault) 29.4 Glucose Level 267 mg/dL (70-99) Calcium Level 6.7 mg/dL (8.5-10.1) Phosphorus Level 4.2 mg/dL (2.6-4.7) Magnesium Level 2.5 mg/dL (1.8-2.4) Albumin 1.5 g/dL (3.4-5.0) Test 05/19/20 08:00 05/19/20 11:40 05/19/20 11:44 05/19/20 21:08 O2 Saturation 97 % (92-99) Arterial Blood pH 7.40 (7.35-7.45) Arterial Blood pCO2 at Patient Temp 38 mmHg (35-46) Arterial Blood pO2 at Patient Temp 97 mmHg (65-108) Arterial Blood HCO3 23 mmol/L (21-28) Arterial Blood Base Excess -2 mmol/L (-3-3) FiO2 40/vent White Blood Count 12.5 x10^3/uL (4.0-11.0) Red Blood Count 2.61 x10^6/uL (3.50-5.40) Hemoglobin 7.4 g/dL (12.0-15.5) Hematocrit 23.3 % (36.0-47.0) Mean Corpuscular Volume 89 fL (79-100) Mean Corpuscular Hemoglobin 28 pg (25-35) Mean Corpuscular Hemoglobin Concent 32 g/dL (31-37) Red Cell Distribution Width 16.2 % (11.5-14.5) Platelet Count 180 x10^3/uL (140-400) Glucose (Fingerstick) 327 mg/dL (70-99) 358 mg/dL (70-99) Test 05/19/20 23:22 05/20/20 05:30 05/20/20 08:00 Glucose (Fingerstick) 393 mg/dL (70-99) 321 mg/dL (70-99) White Blood Count 15.1 x10^3/uL (4.0-11.0) Red Blood Count 2.99 x10^6/uL (3.50-5.40) Hemoglobin 8.3 g/dL (12.0-15.5) Hematocrit 25.9 % (36.0-47.0) Mean Corpuscular Volume 87 fL (79-100) Mean Corpuscular Hemoglobin 28 pg (25-35) Mean Corpuscular Hemoglobin Concent 32 g/dL (31-37) Red Cell Distribution Width 18.2 % (11.5-14.5) Platelet Count 166 x10^3/uL (140-400) Neutrophils (%) (Auto) 84 % (31-73) Lymphocytes (%) (Auto) 12 % (24-48) Monocytes (%) (Auto) 3 % (0-9) Eosinophils (%) (Auto) 0 % (0-3) Basophils (%) (Auto) 0 % (0-3) Neutrophils # (Auto) 12.7 x10^3/uL (1.8-7.7) Lymphocytes # (Auto) 1.8 x10^3/uL (1.0-4.8) Monocytes # (Auto) 0.5 x10^3/uL (0.0-1.1) Eosinophils # (Auto) 0.0 x10^3/uL (0.0-0.7) Basophils # (Auto) 0.0 x10^3/uL (0.0-0.2) Sodium Level 134 mmol/L (136-145) Potassium Level 3.4 mmol/L (3.5-5.1) Chloride Level 97 mmol/L (98-107) Carbon Dioxide Level 24 mmol/L (21-32) Anion Gap 13 (6-14) Blood Urea Nitrogen 51 mg/dL (7-20) Creatinine 1.8 mg/dL (0.6-1.0) Estimated GFR (Cockcroft-Gault) 27.5 Glucose Level 304 mg/dL (70-99) Calcium Level 7.0 mg/dL (8.5-10.1) Phosphorus Level 4.0 mg/dL (2.6-4.7) Magnesium Level 2.2 mg/dL (1.8-2.4) Albumin 1.9 g/dL (3.4-5.0) O2 Saturation 95 % (92-99) Arterial Blood pH 7.37 (7.35-7.45) Arterial Blood pCO2 at Patient Temp 45 mmHg (35-46) Arterial Blood pO2 at Patient Temp 84 mmHg (65-108) Arterial Blood HCO3 25 mmol/L (21-28) Arterial Blood Base Excess 0 mmol/L (-3-3) FiO2 35%+5 Laboratory Tests Test 05/19/20 11:40 05/19/20 11:44 05/19/20 21:08 05/19/20 23:22 White Blood Count 12.5 x10^3/uL (4.0-11.0) Red Blood Count 2.61 x10^6/uL (3.50-5.40) Hemoglobin 7.4 g/dL (12.0-15.5) Hematocrit 23.3 % (36.0-47.0) Mean Corpuscular Volume 89 fL (79-100) Mean Corpuscular Hemoglobin 28 pg (25-35) Mean Corpuscular Hemoglobin Concent 32 g/dL (31-37) Red Cell Distribution Width 16.2 % (11.5-14.5) Platelet Count 180 x10^3/uL (140-400) Glucose (Fingerstick) 327 mg/dL (70-99) 358 mg/dL (70-99) 393 mg/dL (70-99) Test 05/20/20 05:30 05/20/20 08:00 White Blood Count 15.1 x10^3/uL (4.0-11.0) Red Blood Count 2.99 x10^6/uL (3.50-5.40) Hemoglobin 8.3 g/dL (12.0-15.5) Hematocrit 25.9 % (36.0-47.0) Mean Corpuscular Volume 87 fL (79-100) Mean Corpuscular Hemoglobin 28 pg (25-35) Mean Corpuscular Hemoglobin Concent 32 g/dL (31-37) Red Cell Distribution Width 18.2 % (11.5-14.5) Platelet Count 166 x10^3/uL (140-400) Neutrophils (%) (Auto) 84 % (31-73) Lymphocytes (%) (Auto) 12 % (24-48) Monocytes (%) (Auto) 3 % (0-9) Eosinophils (%) (Auto) 0 % (0-3) Basophils (%) (Auto) 0 % (0-3) Neutrophils # (Auto) 12.7 x10^3/uL (1.8-7.7) Lymphocytes # (Auto) 1.8 x10^3/uL (1.0-4.8) Monocytes # (Auto) 0.5 x10^3/uL (0.0-1.1) Eosinophils # (Auto) 0.0 x10^3/uL (0.0-0.7) Basophils # (Auto) 0.0 x10^3/uL (0.0-0.2) Sodium Level 134 mmol/L (136-145) Potassium Level 3.4 mmol/L (3.5-5.1) Chloride Level 97 mmol/L (98-107) Carbon Dioxide Level 24 mmol/L (21-32) Anion Gap 13 (6-14) Blood Urea Nitrogen 51 mg/dL (7-20) Creatinine 1.8 mg/dL (0.6-1.0) Estimated GFR (Cockcroft-Gault) 27.5 Glucose Level 304 mg/dL (70-99) Glucose (Fingerstick) 321 mg/dL (70-99) Calcium Level 7.0 mg/dL (8.5-10.1) Phosphorus Level 4.0 mg/dL (2.6-4.7) Magnesium Level 2.2 mg/dL (1.8-2.4) Albumin 1.9 g/dL (3.4-5.0) O2 Saturation 95 % (92-99) Arterial Blood pH 7.37 (7.35-7.45) Arterial Blood pCO2 at Patient Temp 45 mmHg (35-46) Arterial Blood pO2 at Patient Temp 84 mmHg (65-108) Arterial Blood HCO3 25 mmol/L (21-28) Arterial Blood Base Excess 0 mmol/L (-3-3) FiO2 35%+5 Medications Active Scripts Medications Dose Route/Sig Max Daily Dose Days Date Category Effient (Prasugrel Hcl) 10 Mg Tablet 10 Mg PO [id number] 30 06/10/19 Rx Furosemide 20 Mg Tablet 1 Tab PO DAILY 04/24/19 Reported Bupropion Xl (Bupropion Hcl) 150 Mg Tab.er.24h 150 Mg PO BID 04/24/19 Reported Tramadol Hcl 50 Mg Tablet 50 Mg PO Q4HRS PRN 04/24/19 Reported Cyclobenzaprine Hcl 5 Mg Tablet 5 Mg PO TID PRN 04/24/19 Reported Montelukast Sodium Tablet (Montelukast Sodium) 10 Mg Tablet 10 Mg PO HS 04/24/19 Reported Spironolactone 25 Mg Tablet 1 Tab PO DAILY 04/24/19 Reported Ranitidine Hcl 150 Mg Capsule 150 Mg PO DAILY 04/24/19 Reported Naproxen 500 Mg Tablet 1 Tab PO BID 30 04/24/19 Reported Atorvastatin Calcium 40 Mg Tablet 80 Mg PO QHS 12/02/18 Rx Abilify (Aripiprazole) 2 Mg Tablet 2 Mg PO DAILY 11/30/18 Reported Buspirone Hcl 15 Mg Tablet 15 Mg PO TID 11/30/18 Reported Tegretol (Carbamazepine) 200 Mg Tablet 200 Mg PO QHS 11/08/18 Reported Metoprolol Succinate ( Xl ) (Metoprolol Succinate) 25 Mg Tab.er.24h 12.5 Mg PO DAILY 11/08/18 Reported Klonopin (Clonazepam) 0.5 Mg Tablet 0.5 Mg PO PRN BID PRN 01/08/18 Reported Fish Oil 1,000 Mg Capsule ([place]-3 Fatty Acids/Fish Oil) 1 Each Capsule 1 Each PO TID 01/08/18 Reported Cymbalta (Duloxetine Hcl) 60 Mg Capsule.dr 120 Mg PO DAILY 01/08/18 Reported Loperamide (Loperamide Hcl) 2 Mg Capsule 2 Mg PO 01/04/18 Reported Zyrtec (Cetirizine Hcl) 10 Mg Tablet 1 Tab PO DAILY 01/04/18 Reported Zonisamide 100 Mg Capsule 100 Mg PO TID 12/14/17 Reported Protonix (Pantoprazole Sodium) 20 Mg Tablet.dr 40 Mg PO DAILY 12/14/17 Reported Nortriptyline Hcl 25 Mg Capsule 50 Mg PO HS 12/14/17 Reported Duoneb 0.5-3(2.5) Mg/3 Ml (Albuterol/Ipratropium) 3 Ml Ampul.neb 3 Ml NEB TID 12/14/17 Reported Multivitamins (Multivitamin) 1 Each Tablet 1 Tab PO DAILY 06/25/17 Reported Mirtazapine 15 Mg Tablet 30 Mg PO QHS 06/25/17 Reported Lisinopril 5 Mg Tablet 1 Tab PO DAILY 06/25/17 Reported Vitamin B-12 (Cyanocobalamin (Vitamin B-12)) 1,000 Mcg Tablet 1 Tab PO DAILY 06/25/17 Reported Vitamin D (Cholecalciferol (Vitamin D3)) 1,000 Unit Capsule 1 Cap PO DAILY 06/25/17 Reported Ascorbic Acid 500 Mg Tablet 500 Mg PO BID 06/25/17 Reported Voltaren (Diclofenac Sodium) 100 Gm Gel..gram. 100 Gm TP QID 02/02/15 Reported Levemir Flextouch (Insulin Detemir) 100 Unit/1 Ml Insuln.pen 36 Unit SQ BID 02/02/15 Reported Flonase Allergy Relief (Fluticasone Propionate) 9.9 Ml [place].susp 2 Spr NS DAILY 02/01/15 Reported Aspir 81 (Aspirin) 81 Mg Tablet. 81 Mg PO DAILY 09/03/13 Reported Ropinirole Hcl 1 Mg Tablet 1 Mg PO QHS 09/03/13 Reported Novolog (Insulin Aspart) 100 Unit/1 Ml Cartridge 6 Unit SQ TIDAC 09/03/13 Reported Comments CXR 05/20 reviewed no change, bilateral infiltrates Impression . 1. Acute hypoxemic respiratory failure, multifactorial in etiology including shock, myocardial infarction, chronic obstructive pulmonary disease with acute exacerbation, no pulmonary embolism--- now on vent 2. Abnormal CT of the chest./basal atelectasis 3. Elevated troponin, non-ST elevation myocardial infarction. 4. Shock ,cardiac 5. Acute kidney injury. 6. Chronic kidney disease. 7. Chest pain. 8. Chronic obstructive pulmonary disease with acute exacerbation. 9. Obesity, obstructive sleep apnea-hypopnea syndrome. Conclusion 1. Acute on chronic systolic and diastolic heart failure, LVEDP 18 mmHg 2. Severe three-vessel coronary artery disease with culprit lesion involving the LAD 3. Successful balloon angioplasty of the proximal LAD in-stent restenosis with a 2.0 x 12 mm balloon 4. Successful PCI of the ostial LAD and distal left main with implantation of a 3.5 x 12 mm Xience Cinda SEAN. Recommendations 1. Aspirin 81 mg daily 2. Prasugrel 10 mg daily 3. Continuation of heparin drip for the next 24 hours 4. Overall, the patient has severe coronary artery disease and given her other comorbidities she has an overall poor prognosis but continue inotropic support at this time and we will try to wean from the ventilator over the next 48 hours after diuresis and stabilization of renal function and pulmonary status. Plan . PLAN: Continue vent support Fi02 35% and PEEP of 5 Follow CXR/ABG--- no changes today LVEDP 18, No further diuresis wean sedation once awake, CPAP trial NEBS Continue Solu-cortef, with slow taper Continue empiric ABX per ID-- Follow cultures Follow cardiology recs--status post PCI on 05/18/2020 to the LAD, continue heparin follow other cardiology recommendations Follow nephrology recs-- monitor renal function Continue tube feeding for nutritional support DVT/GI PPX D/W RN and RT/ cardiology CC time 30 minutes, No overlap BRAULIO SMITH MD May 20, 2020 10:27
[2020-05-20] MEDS: INSULIN GLARGINE SYRINGE. SQ SCH ×2 (10:30→21:29)
[2020-05-20 10:31] LABS: % BANDS 11 % (0-9); % LYMPHS 20 % (24-48); % METAS 1 % (0-0); % MONOS 2 % (0-10); % SEGS 66 % (35-66); ANISOCYTOSIS SLIGHT; NUCLEATED RBC 3; PLT ESTIMATE ADEQUATE (ADEQUATE)
[2020-05-20] MEDS ORDERED: FUROSEMIDE 40 MG/4 ML VIAL. IVP ONE (11:45)
--- NOTE | 2020-05-20 11:45 | PDOC ---
Renal-Progress Notes Subjective Notes Notes ON THE VENT History of Present Illness Hx of present illness STABLE Vitals Vitals Vital Signs Date Time Temp Pulse Resp B/P (MAP) Pulse Ox O2 Delivery O2 Flow Rate FiO2 05/20/20 11:30 64 14 118/66 (83) 98 Ventilator 05/20/20 08:00 98.7 98.7 Weight Weight [ ] I.O. Intake and Output Intake and Output 05/20/20 06:59 Intake Total 4019.9 ml Output Total 1880 ml Balance 2139.9 ml IV Total 1441.9 ml Tube Feeding 1552 ml Blood Product 261 ml Blood Product IV Normal Saline Flush 305 ml Other 460 ml Output Urine Total 1880 ml # Bowel Movements 1 Labs Labs Laboratory Tests Test 05/19/20 11:44 05/19/20 21:08 05/19/20 23:22 05/20/20 05:30 Glucose (Fingerstick) 327 mg/dL (70-99) 358 mg/dL (70-99) 393 mg/dL (70-99) 321 mg/dL (70-99) White Blood Count 15.1 x10^3/uL (4.0-11.0) Red Blood Count 2.99 x10^6/uL (3.50-5.40) Hemoglobin 8.3 g/dL (12.0-15.5) Hematocrit 25.9 % (36.0-47.0) Mean Corpuscular Volume 87 fL (79-100) Mean Corpuscular Hemoglobin 28 pg (25-35) Mean Corpuscular Hemoglobin Concent 32 g/dL (31-37) Red Cell Distribution Width 18.2 % (11.5-14.5) Platelet Count 166 x10^3/uL (140-400) Neutrophils (%) (Auto) 84 % (31-73) Lymphocytes (%) (Auto) 12 % (24-48) Monocytes (%) (Auto) 3 % (0-9) Eosinophils (%) (Auto) 0 % (0-3) Basophils (%) (Auto) 0 % (0-3) Neutrophils # (Auto) 12.7 x10^3/uL (1.8-7.7) Lymphocytes # (Auto) 1.8 x10^3/uL (1.0-4.8) Monocytes # (Auto) 0.5 x10^3/uL (0.0-1.1) Eosinophils # (Auto) 0.0 x10^3/uL (0.0-0.7) Basophils # (Auto) 0.0 x10^3/uL (0.0-0.2) Segmented Neutrophils % 66 % (35-66) Band Neutrophils % 11 % (0-9) Lymphocytes % 20 % (24-48) Monocytes % 2 % (0-10) Metamyelocytes % 1 % (0-0) Nucleated Red Blood Cells 3 Platelet Estimate Adequate (ADEQUATE) Large Platelets Few Giant Platelets Few Anisocytosis Slight Sodium Level 134 mmol/L (136-145) Potassium Level 3.4 mmol/L (3.5-5.1) Chloride Level 97 mmol/L (98-107) Carbon Dioxide Level 24 mmol/L (21-32) Anion Gap 13 (6-14) Blood Urea Nitrogen 51 mg/dL (7-20) Creatinine 1.8 mg/dL (0.6-1.0) Estimated GFR (Cockcroft-Gault) 27.5 Glucose Level 304 mg/dL (70-99) Calcium Level 7.0 mg/dL (8.5-10.1) Phosphorus Level 4.0 mg/dL (2.6-4.7) Magnesium Level 2.2 mg/dL (1.8-2.4) Albumin 1.9 g/dL (3.4-5.0) Test 05/20/20 08:00 05/20/20 11:36 O2 Saturation 95 % (92-99) Arterial Blood pH 7.37 (7.35-7.45) Arterial Blood pCO2 at Patient Temp 45 mmHg (35-46) Arterial Blood pO2 at Patient Temp 84 mmHg (65-108) Arterial Blood HCO3 25 mmol/L (21-28) Arterial Blood Base Excess 0 mmol/L (-3-3) FiO2 35%+5 Glucose (Fingerstick) 337 mg/dL (70-99) Micro Micro Microbiology 05/15/20 Blood Culture - Preliminary, Resulted NO GROWTH AFTER 4 DAYS Review of Systems Constitutional: yes: other (UNABLE TO OBTAIN) Physical Exam General Appearance: no apparent distress Skin: warm Respiratory: decreased breath sounds Heart: S1S2 Abdomen: soft, bowel sounds present Genitourinary: bladder flat Extremities: pulses present Neurology: other (SEDATED) Assessment Assessment IMP AVIVA-IMPROVING WITH CR DOWN TO 1.8 FROM 2.5 AMI - S/P PTCA AND STENT CKD STAGE 3 WITH CR ABOUT 1.5 ?CARDIAC INJURY-TROPONIN IS UP HYPOKALEMIA-REPLACED HYPONATREMIA-BETTER ACUTE RESP FAILURE PROBABLE PNEUMONIA LEUCOCYTOSIS DM II PLAN STOP SALINE IV LASIX ANTIBIOTICS VENT WEAN WILL FOLLOW ORION ARAYA MD May 20, 2020 11:45
--- NOTE | 2020-05-20 11:52 | PDOC ---
DARRION GARCIA VISUAL EFFECTS ARTIST 05/20/20 1152: CARDIO Progress Notes Date and Time Date of Service 05/20/2020 Time of Evaluation 0950 Subjective Subjective: Other (sedated) Vitals Vitals Vital Signs Date Time Temp Pulse Resp B/P (MAP) Pulse Ox O2 Delivery O2 Flow Rate FiO2 05/20/20 11:30 64 14 118/66 (83) 98 Ventilator 05/20/20 08:00 98.7 98.7 Weight Weight [ ] Input and Output Intake and Output Intake and Output 05/20/20 07:00 Intake Total 4019.9 ml Output Total 1880 ml Balance 2139.9 ml IV Total 1441.9 ml Tube Feeding 1552 ml Blood Product 261 ml Blood Product IV Normal Saline Flush 305 ml Other 460 ml Output Urine Total 1880 ml # Bowel Movements 1 Laboratory Labs Laboratory Tests Test 05/19/20 21:08 05/19/20 23:22 05/20/20 05:30 05/20/20 08:00 Glucose (Fingerstick) 358 mg/dL (70-99) 393 mg/dL (70-99) 321 mg/dL (70-99) White Blood Count 15.1 x10^3/uL (4.0-11.0) Red Blood Count 2.99 x10^6/uL (3.50-5.40) Hemoglobin 8.3 g/dL (12.0-15.5) Hematocrit 25.9 % (36.0-47.0) Mean Corpuscular Volume 87 fL (79-100) Mean Corpuscular Hemoglobin 28 pg (25-35) Mean Corpuscular Hemoglobin Concent 32 g/dL (31-37) Red Cell Distribution Width 18.2 % (11.5-14.5) Platelet Count 166 x10^3/uL (140-400) Neutrophils (%) (Auto) 84 % (31-73) Lymphocytes (%) (Auto) 12 % (24-48) Monocytes (%) (Auto) 3 % (0-9) Eosinophils (%) (Auto) 0 % (0-3) Basophils (%) (Auto) 0 % (0-3) Neutrophils # (Auto) 12.7 x10^3/uL (1.8-7.7) Lymphocytes # (Auto) 1.8 x10^3/uL (1.0-4.8) Monocytes # (Auto) 0.5 x10^3/uL (0.0-1.1) Eosinophils # (Auto) 0.0 x10^3/uL (0.0-0.7) Basophils # (Auto) 0.0 x10^3/uL (0.0-0.2) Segmented Neutrophils % 66 % (35-66) Band Neutrophils % 11 % (0-9) Lymphocytes % 20 % (24-48) Monocytes % 2 % (0-10) Metamyelocytes % 1 % (0-0) Nucleated Red Blood Cells 3 Platelet Estimate Adequate (ADEQUATE) Large Platelets Few Giant Platelets Few Anisocytosis Slight Sodium Level 134 mmol/L (136-145) Potassium Level 3.4 mmol/L (3.5-5.1) Chloride Level 97 mmol/L (98-107) Carbon Dioxide Level 24 mmol/L (21-32) Anion Gap 13 (6-14) Blood Urea Nitrogen 51 mg/dL (7-20) Creatinine 1.8 mg/dL (0.6-1.0) Estimated GFR (Cockcroft-Gault) 27.5 Glucose Level 304 mg/dL (70-99) Calcium Level 7.0 mg/dL (8.5-10.1) Phosphorus Level 4.0 mg/dL (2.6-4.7) Magnesium Level 2.2 mg/dL (1.8-2.4) Albumin 1.9 g/dL (3.4-5.0) O2 Saturation 95 % (92-99) Arterial Blood pH 7.37 (7.35-7.45) Arterial Blood pCO2 at Patient Temp 45 mmHg (35-46) Arterial Blood pO2 at Patient Temp 84 mmHg (65-108) Arterial Blood HCO3 25 mmol/L (21-28) Arterial Blood Base Excess 0 mmol/L (-3-3) FiO2 35%+5 Test 05/20/20 11:36 Glucose (Fingerstick) 337 mg/dL (70-99) Microbiology Micro Microbiology 05/15/20 Blood Culture - Preliminary, Resulted NO GROWTH AFTER 4 DAYS Review of Systems Constitutional: yes: other (UNABLE TO OBTAIN) Physical Exam HEENT: Neck Supple W Full Motion Chest: Symmetric LUNGS: Other (intubated, vent) Heart: RRR (SR), other (distant heart tones ) Abdomen: Other (obese) Extremities: Other (1+ bilateral LE edema ) Neurology: other (SEDATED) Assessment Assessment 1. Acute respiratory failure with a/c CHF, AECOPD, and CAD 2. Acute on chronic combined diastolic/systolic CHF 3. Abdominal pain; CT without acute findings 4. NSTEMI: 3VD. Peaked trop 45. POD#1 S/P PCI/SEAN to ostial LAD and distal left main with PTCA to proximal LAD ISR 5. Ischemic cardiomyopathy; Echo showed LVEF 45-50% 6. CAD s/p PCI/stent; Cath 06/12- LAD with ostial 50% stenosis, mid 100% ISR, and distal 90% ISR. s/p successful PTCA of the LAD. Given the small caliber of the vessels, repeat stenting was deferred. 7. Leukocytosis, lactic acidosis, periodic fever. ? sepsis. Antibiotics per ID 8. HTN: BP normotensive now 9. Hyperlipidemia; LDL 25 10. AVIVA on CKD; improved 11. Hypokalemia; replaced 12. Anemia: no obvious bleed, arteriotomy site good. Hgb at 8.3 post transfusion Recommendations 1. Continue vent support per pulmonary 2. Lasix therapy, monitor renal function 3. Secondary prevention. ASA/effient. DC femoral sheath today 4. Statin therapy 5. Cardiac rehab 6. Continue metoprolol. 7. Vent weaning per pulmonary. Supportive care Justicifation of Admission Dx: Justifications for Admission: Justification of Admission Dx: N/A SHARYN BARFIELD MD 05/20/20 1217: CARDIO Progress Notes Plan Plan Pt. seen and examined. Agree with above [facility]ER note. Extubation today, continue present meds. Supportive care. DARRION GARCIA [employer]IS[employer] ARTIST May 20, 2020 11:52 SHARYN BARFIELD MD May 20, 2020 12:17
--- NOTE | 2020-05-20 13:05 | PDOC ---
[employer] PROGRESS NOTE Date of Service DOS: DATE: 05/20/20 TIME: 13:03 Chief Complaint Chief Complaint sepsis, severe sepsis, shock Acute hypoxemic respiratory failure, on COPD and ARIANNA currently on BiPAP, low threshold for intubation Severe triple-vessel disease status post LAD stent. Patient poor prognosis and poor surgical candidate date for CABG COVID risk, pt initial swab is negative acute acidosis on CKD 4, renal failure, DKA, acute acidosis with hyperosmolar syndrome, weaned off of insulin drip troponinemia, NSTEMI 2, demand, obese, BMI 39, some pickwickian habitus constipation, on chronic abdominal hernia, with abdominal pain History of Present Illness History of Present Illness 05/20/2020 No acute events overnight. Patient currently on minimal vent settings. We will remove femoral sheath today after holding heparin drip. Plan for extubation today. DC IV fluids. Patient's chart, labs, images were reviewed and discussed with RN 05/19/2020 No acute events overnight. Status post left heart cath. Still sedated and intubated. Vent settings 14/450/35 %/5. ABG: pH 7.4, PCO2 38, PO2 is 97, HCO3 23. Patient's chart, labs, images were reviewed and discussed with RN 05/18/2020 No acute events overnight. T-max of 99.8. Patient was intubated yesterday cu rrent ventilator settings of 18/500/80%/6. Potassium 2.9 today replace with 100 mEq of IV potassium. pH 7.51, PCO2 31, PO2 260, HCO3 24. Patient's chart, labs, images were reviewed and discussed with RN 05/17/2020 No acute events overnight. Patient remains afebrile. Tolerating BiPAP for now and saturating 100%.> 50% time spent in patient chart, labs, and imaging review and in discussion with RN and MARTIN 74 year old female admit for chest pain last night, pain started acutely while walking her dog, mid chest pain with tightness. she came by ambulance, and was newly hypoxic to mid 80's in the ER. she has a Hx CAD and stents, CV team called for EKG change, Dr. Joshua saw the pt in the ER, admit to ICU, broad spectrum abx given, CT angio done for pain, showed large amt of stool, no clear PNA Vitals/I&O Vitals/I&O: Vital Signs Date Time Temp Pulse Resp B/P (MAP) Pulse Ox O2 Delivery O2 Flow Rate FiO2 05/20/20 13:00 69 14 131/69 (89) 98 Ventilator 05/20/20 08:00 98.7 98.7 I & O 05/19/20 05/19/20 05/20/20 15:00 23:00 07:00 Intake Total 660 ml 1990.9 ml 1369 ml Output Total 460 ml 850 ml 570 ml Balance 200 ml 1140.9 ml 799 ml Physical Exam Physical Exam: GENERAL: sedated on vent VITAL SIGNS: intubated on vent HEENT: Both pupils are round and reacting. No conjunctival lesion. No lesion in the mouth. NECK: Supple. No JVP. No lymphadenopathy. LUNGS: Clear. HEART: S1, S2 regular. ABDOMEN: Benign. EXTREMITIES: No edema or cyanosis. SKIN: Unremarkable. NEUROLOGIC: sedated on vent General: Alert, Cooperative, mild distress Heart: Regular rate Lungs: Other (decrease bs) Abdomen: Normal bowel sounds Extremities: No cyanosis, No edema Skin: No rashes Labs Labs: Laboratory Tests Test 05/19/20 21:08 05/19/20 23:22 05/20/20 05:30 05/20/20 08:00 Glucose (Fingerstick) 358 mg/dL (70-99) 393 mg/dL (70-99) 321 mg/dL (70-99) White Blood Count 15.1 x10^3/uL (4.0-11.0) Red Blood Count 2.99 x10^6/uL (3.50-5.40) Hemoglobin 8.3 g/dL (12.0-15.5) Hematocrit 25.9 % (36.0-47.0) Mean Corpuscular Volume 87 fL (79-100) Mean Corpuscular Hemoglobin 28 pg (25-35) Mean Corpuscular Hemoglobin Concent 32 g/dL (31-37) Red Cell Distribution Width 18.2 % (11.5-14.5) Platelet Count 166 x10^3/uL (140-400) Neutrophils (%) (Auto) 84 % (31-73) Lymphocytes (%) (Auto) 12 % (24-48) Monocytes (%) (Auto) 3 % (0-9) Eosinophils (%) (Auto) 0 % (0-3) Basophils (%) (Auto) 0 % (0-3) Neutrophils # (Auto) 12.7 x10^3/uL (1.8-7.7) Lymphocytes # (Auto) 1.8 x10^3/uL (1.0-4.8) Monocytes # (Auto) 0.5 x10^3/uL (0.0-1.1) Eosinophils # (Auto) 0.0 x10^3/uL (0.0-0.7) Basophils # (Auto) 0.0 x10^3/uL (0.0-0.2) Segmented Neutrophils % 66 % (35-66) Band Neutrophils % 11 % (0-9) Lymphocytes % 20 % (24-48) Monocytes % 2 % (0-10) Metamyelocytes % 1 % (0-0) Nucleated Red Blood Cells 3 Platelet Estimate Adequate (ADEQUATE) Large Platelets Few Giant Platelets Few Anisocytosis Slight Sodium Level 134 mmol/L (136-145) Potassium Level 3.4 mmol/L (3.5-5.1) Chloride Level 97 mmol/L (98-107) Carbon Dioxide Level 24 mmol/L (21-32) Anion Gap 13 (6-14) Blood Urea Nitrogen 51 mg/dL (7-20) Creatinine 1.8 mg/dL (0.6-1.0) Estimated GFR (Cockcroft-Gault) 27.5 Glucose Level 304 mg/dL (70-99) Calcium Level 7.0 mg/dL (8.5-10.1) Phosphorus Level 4.0 mg/dL (2.6-4.7) Magnesium Level 2.2 mg/dL (1.8-2.4) Albumin 1.9 g/dL (3.4-5.0) O2 Saturation 95 % (92-99) Arterial Blood pH 7.37 (7.35-7.45) Arterial Blood pCO2 at Patient Temp 45 mmHg (35-46) Arterial Blood pO2 at Patient Temp 84 mmHg (65-108) Arterial Blood HCO3 25 mmol/L (21-28) Arterial Blood Base Excess 0 mmol/L (-3-3) FiO2 35%+5 Test 05/20/20 11:36 Glucose (Fingerstick) 337 mg/dL (70-99) Comment Review of Relevant I have reviewed the following items danisha (where applicable) has been applied. Medications: Current Medications Medications (Trade) Dose Ordered Sig/Morgan Route PRN Reason Start Time Stop Time Status Last Admin Dose Admin Metoprolol Tartrate (Lopressor) 12.5 mg BID PO 05/19/20 21:00 05/20/20 08:02 Furosemide (Lasix) 40 mg DAILY IVP 05/20/20 09:00 05/20/20 08:00 Insulin Glargine (Lantus Syringe) 10 unit QHS SQ 05/19/20 21:00 05/20/20 08:13 DC 05/19/20 21:01 Furosemide (Lasix) 40 mg 1X ONCE IVP 05/19/20 14:45 05/19/20 14:46 DC 05/19/20 21:05 Propofol 100 ml @ 2.52 mls/hr CONT PRN IV PER PROTOCOL 05/19/20 15:45 05/20/20 09:19 Insulin Human Lispro (HumaLOG) 6 units 1X ONCE SQ 05/19/20 18:15 05/19/20 18:16 DC 05/19/20 18:15 Insulin Human Lispro (HumaLOG) 5 units 1X ONCE SQ 05/20/20 00:30 05/20/20 00:31 DC 05/20/20 00:07 Potassium Bicarbonate (Potassium Effervescent Tablet) 40 meq 1X ONCE PO 05/20/20 07:15 05/20/20 07:16 DC 05/20/20 08:02 Insulin Glargine (Lantus Syringe) 10 unit BID SQ 05/20/20 09:00 05/20/20 10:30 Furosemide (Lasix) 40 mg 1X ONCE IVP 05/20/20 11:45 05/20/20 11:48 DC 05/20/20 12:18 Justifications for Admission Other Justification RANJITH PACHECO MD May 20, 2020 13:05
[2020-05-20 14:30] LABS: BASE EXCESS ABG 1 mmol/L (-3-3); HCO3 ABG 25 mmol/L (21-28); PCO2 ABG 37 mmHg (35-46); PO2 ABG 61 mmHg (65-108); SAT O2 ABG 92 % (92-99)
[2020-05-20 14:51] LABS: FIO2 ABG 35%
--- NOTE | 2020-05-20 15:10 | NUR ---
manufacturing laborer RN pulled arterial sheath in morning, laid flat for 3 hours per heel turner. Sedation turned off at 1330, patient woke up and able to nod head yes/no appropriately and follow commands. SBT initiated by RT at 1400 and ABG drawn at 1430, notified Dr. Beckham of results. Patient extubated at 1440 to 40% venti mask. will continue to monitor.
[2020-05-20] MEDS: carBAMazepine 200 MG TABLET PO SCH (20:40)
[2020-05-20] MEDS: ATORVASTATIN CALCIUM 40 MG TABLET. PO SCH (20:40)
[2020-05-21] VITALS (14 sets, daily range): BP systolic 140–188; BP diastolic 57–101
[2020-05-21] MEDS: PIPERACILLIN/TAZOBACTAM 2.25 GM in IV NORMAL SALINE 50ML 50 ML IV SCH ×5 (00:21→23:17)
[2020-05-21] MEDS: INSULIN LISPRO 300 UNITS/3 ML VIAL. SQ SCH ×5 (00:25→22:59)
[2020-05-21] MEDS: HYDROCORTISONE SOD SUCC/PF 100 MG/2 ML VIAL. IVP SCH (06:20)
--- NOTE | 2020-05-21 06:41 | PDOC ---
PULMONARY PROGRESS NOTES DATE: 05/21/20 TIME: 06:38 Subjective Extubated on , now on Ventimask 12 L Status post cardiac cath on 05/18 with PCI No overnight concerns from nursing Vitals Vital Signs Date Time Temp Pulse Resp B/P (MAP) Pulse Ox O2 Delivery O2 Flow Rate FiO2 05/21/20 06:00 79 27 140/64 (89) 98 Venturi Mask 12.0 05/21/20 04:00 97.9 97.9 ROS: No Nausea, No Chest Pain, No Abdominal Pain, No Increase Cough General: Alert, Oriented X4 Lungs: Other (decrease bs) Cardiovascular: S1, S2 Abdomen: Soft, Other Extremities: Other (trace edema) Skin: Warm Labs Laboratory Tests Test 05/19/20 08:00 05/19/20 11:40 05/19/20 11:44 05/19/20 21:08 O2 Saturation 97 % (92-99) Arterial Blood pH 7.40 (7.35-7.45) Arterial Blood pCO2 at Patient Temp 38 mmHg (35-46) Arterial Blood pO2 at Patient Temp 97 mmHg (65-108) Arterial Blood HCO3 23 mmol/L (21-28) Arterial Blood Base Excess -2 mmol/L (-3-3) FiO2 40/vent White Blood Count 12.5 x10^3/uL (4.0-11.0) Red Blood Count 2.61 x10^6/uL (3.50-5.40) Hemoglobin 7.4 g/dL (12.0-15.5) Hematocrit 23.3 % (36.0-47.0) Mean Corpuscular Volume 89 fL (79-100) Mean Corpuscular Hemoglobin 28 pg (25-35) Mean Corpuscular Hemoglobin Concent 32 g/dL (31-37) Red Cell Distribution Width 16.2 % (11.5-14.5) Platelet Count 180 x10^3/uL (140-400) Glucose (Fingerstick) 327 mg/dL (70-99) 358 mg/dL (70-99) Test 05/19/20 23:22 05/20/20 05:30 05/20/20 08:00 05/20/20 11:36 Glucose (Fingerstick) 393 mg/dL (70-99) 321 mg/dL (70-99) 337 mg/dL (70-99) White Blood Count 15.1 x10^3/uL (4.0-11.0) Red Blood Count 2.99 x10^6/uL (3.50-5.40) Hemoglobin 8.3 g/dL (12.0-15.5) Hematocrit 25.9 % (36.0-47.0) Mean Corpuscular Volume 87 fL (79-100) Mean Corpuscular Hemoglobin 28 pg (25-35) Mean Corpuscular Hemoglobin Concent 32 g/dL (31-37) Red Cell Distribution Width 18.2 % (11.5-14.5) Platelet Count 166 x10^3/uL (140-400) Neutrophils (%) (Auto) 84 % (31-73) Lymphocytes (%) (Auto) 12 % (24-48) Monocytes (%) (Auto) 3 % (0-9) Eosinophils (%) (Auto) 0 % (0-3) Basophils (%) (Auto) 0 % (0-3) Neutrophils # (Auto) 12.7 x10^3/uL (1.8-7.7) Lymphocytes # (Auto) 1.8 x10^3/uL (1.0-4.8) Monocytes # (Auto) 0.5 x10^3/uL (0.0-1.1) Eosinophils # (Auto) 0.0 x10^3/uL (0.0-0.7) Basophils # (Auto) 0.0 x10^3/uL (0.0-0.2) Segmented Neutrophils % 66 % (35-66) Band Neutrophils % 11 % (0-9) Lymphocytes % 20 % (24-48) Monocytes % 2 % (0-10) Metamyelocytes % 1 % (0-0) Nucleated Red Blood Cells 3 Platelet Estimate Adequate (ADEQUATE) Large Platelets Few Giant Platelets Few Anisocytosis Slight Sodium Level 134 mmol/L (136-145) Potassium Level 3.4 mmol/L (3.5-5.1) Chloride Level 97 mmol/L (98-107) Carbon Dioxide Level 24 mmol/L (21-32) Anion Gap 13 (6-14) Blood Urea Nitrogen 51 mg/dL (7-20) Creatinine 1.8 mg/dL (0.6-1.0) Estimated GFR (Cockcroft-Gault) 27.5 Glucose Level 304 mg/dL (70-99) Calcium Level 7.0 mg/dL (8.5-10.1) Phosphorus Level 4.0 mg/dL (2.6-4.7) Magnesium Level 2.2 mg/dL (1.8-2.4) Albumin 1.9 g/dL (3.4-5.0) O2 Saturation 95 % (92-99) Arterial Blood pH 7.37 (7.35-7.45) Arterial Blood pCO2 at Patient Temp 45 mmHg (35-46) Arterial Blood pO2 at Patient Temp 84 mmHg (65-108) Arterial Blood HCO3 25 mmol/L (-28) Arterial Blood Base Excess 0 mmol/L (-3-3) FiO2 35%+5 Test 05/20/20 14:30 05/20/20 17:58 05/20/20 21:25 05/21/20 00:23 O2 Saturation 92 % (92-99) Arterial Blood pH 7.44 (7.35-7.45) Arterial Blood pCO2 at Patient Temp 37 mmHg (35-46) Arterial Blood pO2 at Patient Temp 61 mmHg (65-108) Arterial Blood HCO3 25 mmol/L (-) Arterial Blood Base Excess 1 mmol/L (-3-3) FiO2 35% Glucose (Fingerstick) 246 mg/dL (70-99) 202 mg/dL (70-99) 203 mg/dL (70-99) Test 05/21/20 06:18 Glucose (Fingerstick) 160 mg/dL (70-99) Laboratory Tests Test 05/20/20 08:00 05/20/20 11:36 05/20/20 14:30 05/20/20 17:58 O2 Saturation 95 % (92-99) 92 % (92-99) Arterial Blood pH 7.37 (7.35-7.45) 7.44 (7.35-7.45) Arterial Blood pCO2 at Patient Temp 45 mmHg (35-46) 37 mmHg (35-46) Arterial Blood pO2 at Patient Temp 84 mmHg (65-108) 61 mmHg (65-108) Arterial Blood HCO3 25 mmol/L (-) 25 mmol/L (-28) Arterial Blood Base Excess 0 mmol/L (-3-3) 1 mmol/L (-3-3) FiO2 35%+5 35% Glucose (Fingerstick) 337 mg/dL (70-99) 246 mg/dL (70-99) Test 05/20/20 21:25 05/21/20 00:23 05/21/20 06:18 Glucose (Fingerstick) 202 mg/dL (70-99) 203 mg/dL (70-99) 160 mg/dL (70-99) Medications Active Scripts Medications Dose Route/Sig Max Daily Dose Days Date Category Effient (Prasugrel Hcl) 10 Mg Tablet 10 Mg PO [id number] 30 06/10/19 Rx Furosemide 20 Mg Tablet 1 Tab PO DAILY 04/24/19 Reported Bupropion Xl (Bupropion Hcl) 150 Mg Tab.er.24h 150 Mg PO BID 04/24/19 Reported Tramadol Hcl 50 Mg Tablet 50 Mg PO Q4HRS PRN 04/24/19 Reported Cyclobenzaprine Hcl 5 Mg Tablet 5 Mg PO TID PRN 04/24/19 Reported Montelukast Sodium Tablet (Montelukast Sodium) 10 Mg Tablet 10 Mg PO HS 04/24/19 Reported Spironolactone 25 Mg Tablet 1 Tab PO DAILY 04/24/19 Reported Ranitidine Hcl 150 Mg Capsule 150 Mg PO DAILY 04/24/19 Reported Naproxen 500 Mg Tablet 1 Tab PO BID 30 04/24/19 Reported Atorvastatin Calcium 40 Mg Tablet 80 Mg PO QHS 12/02/18 Rx Abilify (Aripiprazole) 2 Mg Tablet 2 Mg PO DAILY 11/30/18 Reported Buspirone Hcl 15 Mg Tablet 15 Mg PO TID 11/30/18 Reported Tegretol (Carbamazepine) 200 Mg Tablet 200 Mg PO QHS 11/08/18 Reported Metoprolol Succinate ( Xl ) (Metoprolol Succinate) 25 Mg Tab.er.24h 12.5 Mg PO DAILY 11/08/18 Reported Klonopin (Clonazepam) 0.5 Mg Tablet 0.5 Mg PO PRN BID PRN 01/08/18 Reported Fish Oil 1,000 Mg Capsule (Coggon-3 Fatty Acids/Fish Oil) 1 Each Capsule 1 Each PO TID 01/08/18 Reported Cymbalta (Duloxetine Hcl) 60 Mg Capsule.dr 120 Mg PO DAILY 01/08/18 Reported Loperamide (Loperamide Hcl) 2 Mg Capsule 2 Mg PO 01/04/18 Reported Zyrtec (Cetirizine Hcl) 10 Mg Tablet 1 Tab PO DAILY 01/04/18 Reported Zonisamide 100 Mg Capsule 100 Mg PO TID 12/14/17 Reported Protonix (Pantoprazole Sodium) 20 Mg Tablet.dr 40 Mg PO DAILY 12/14/17 Reported Nortriptyline Hcl 25 Mg Capsule 50 Mg PO HS 12/14/17 Reported Duoneb 0.5-3(2.5) Mg/3 Ml (Albuterol/Ipratropium) 3 Ml Ampul.neb 3 Ml NEB TID 12/14/17 Reported Multivitamins (Multivitamin) 1 Each Tablet 1 Tab PO DAILY 06/25/17 Reported Mirtazapine 15 Mg Tablet 30 Mg PO QHS 06/25/17 Reported Lisinopril 5 Mg Tablet 1 Tab PO DAILY 06/25/17 Reported Vitamin B-12 (Cyanocobalamin (Vitamin B-12)) 1,000 Mcg Tablet 1 Tab PO DAILY 06/25/17 Reported Vitamin D (Cholecalciferol (Vitamin D3)) 1,000 Unit Capsule 1 Cap PO DAILY 06/25/17 Reported Ascorbic Acid 500 Mg Tablet 500 Mg PO BID 06/25/17 Reported Voltaren (Diclofenac Sodium) 100 Gm Gel..gram. 100 Gm TP QID 02/02/15 Reported Levemir Flextouch (Insulin Detemir) 100 Unit/1 Ml Insuln.pen 36 Unit SQ BID 02/02/15 Reported Flonase Allergy Relief (Fluticasone Propionate) 9.9 Ml [place].susp 2 Spr NS DAILY 02/01/15 Reported Aspir 81 (Aspirin) 81 Mg Tablet.dr 81 Mg PO DAILY 09/03/13 Reported Ropinirole Hcl 1 Mg Tablet 1 Mg PO QHS 09/03/13 Reported Novolog (Insulin Aspart) 100 Unit/1 Ml Cartridge 6 Unit SQ TIDAC 09/03/13 Reported Comments CXR 05/20 reviewed no change, bilateral infiltrates Impression . 1. Acute hypoxemic respiratory failure, multifactorial in etiology including shock, myocardial infarction, chronic obstructive pulmonary disease with acute exacerbation, no pulmonary embolism-----now extubated 2. Abnormal CT of the chest./basal atelectasis 3. Elevated troponin, non-ST elevation myocardial infarction. 4. Shock ,cardiac--- resolved 5. Acute kidney injury--improved 6. Chronic kidney disease. 7. Chest pain. 8. Chronic obstructive pulmonary disease with acute exacerbation. 9. Obesity, obstructive sleep apnea-hypopnea syndrome. Cardiac cath Conclusion 1. Acute on chronic systolic and diastolic heart failure, LVEDP 18 mmHg 2. Severe three-vessel coronary artery disease with culprit lesion involving the LAD 3. Successful balloon angioplasty of the proximal LAD in-stent restenosis with a 2.0 x 12 mm balloon 4. Successful PCI of the ostial LAD and distal left main with implantation of a 3.5 x 12 mm Xience Cinda SEAN. Recommendations 1. Aspirin 81 mg daily 2. Prasugrel 10 mg daily 3. Continuation of heparin drip for the next 24 hours 4. Overall, the patient has severe coronary artery disease and given her other comorbidities she has an overall poor prognosis but continue inotropic support at this time and we will try to wean from the ventilator over the next 48 hours after diuresis and stabilization of renal function and pulmonary status. Plan . PLAN: Continue current supplemental oxygen support, currently on Ventimask at 12 L, wean as tolerated Follow CXR/ABG--- no changes today NEBS, including Pulmicort DC hydrocortisone Continue empiric ABX per ID--remains on Zosyn Follow cultures--- no growth to date Follow cardiology recs--status post PCI on 05/18/2020 to the LAD, hypertension per cardiology Follow nephrology recs-- monitor renal function Physical therapy/Occupational Therapy/speech therapy DVT/GI PPX D/W RN and RT/ cardiology Okay to transfer out of the intensive care unit if okay with other consults CONRADO FAGAN MD May 21, 2020 06:41
[2020-05-21 06:56] LABS: ALBUMIN 1.9 g/dL (3.4-5.0); CALCIUM 8.2 mg/dL (8.5-10.1); CREATININE 1.2 mg/dL (0.6-1.0); GFR 43.9; MAGNESIUM 1.8 mg/dL (1.8-2.4); PHOSPHORUS 2.8 mg/dL (2.6-4.7)
[2020-05-21 07:03] LABS: POTASSIUM 2.1 mmol/L (3.5-5.1)
[2020-05-21] MEDS ORDERED: ELECTROLYTE (ICU) PROTOCOL. MC PRN (07:30)
[2020-05-21] MEDS: POTASSIUM CHLORIDE 20MEQ 100 ML IV SCH ×8 (07:35→18:08)
--- NOTE | 2020-05-21 07:51 | PDOC ---
Infectious Disease Note Subjective Subjective extubated , awake says feeling good ROS ROS no n/v/d/ Vital Sign Vital Signs Vital Signs Date Time Temp Pulse Resp B/P (MAP) Pulse Ox O2 Delivery O2 Flow Rate FiO2 05/21/20 06:00 79 27 140/64 (89) 98 Venturi Mask 12.0 05/21/20 04:00 97.9 97.9 Physical Exam PHYSICAL EXAM GENERAL: awake on 3 lit VITAL SIGNS: intubated on vent HEENT: Both pupils are round and reacting. No conjunctival lesion. No lesion in the mouth. NECK: Supple. No JVP. No lymphadenopathy. LUNGS: Clear. HEART: S1, S2 regular. ABDOMEN: Benign. EXTREMITIES: No edema or cyanosis. SKIN: Unremarkable. NEUROLOGIC: A and O x 3 , no focal deficit Labs Lab Laboratory Tests Test 05/20/20 08:00 05/20/20 11:36 05/20/20 14:30 05/20/20 17:58 O2 Saturation 95 % (92-99) 92 % (92-99) Arterial Blood pH 7.37 (7.35-7.45) 7.44 (7.35-7.45) Arterial Blood pCO2 at Patient Temp 45 mmHg (35-46) 37 mmHg (35-46) Arterial Blood pO2 at Patient Temp 84 mmHg (65-108) 61 mmHg (65-108) Arterial Blood HCO3 25 mmol/L (21-28) 25 mmol/L (21-28) Arterial Blood Base Excess 0 mmol/L (-3-3) 1 mmol/L (-3-3) FiO2 35%+5 35% Glucose (Fingerstick) 337 mg/dL (70-99) 246 mg/dL (70-99) Test 05/20/20 21:25 05/21/20 00:23 05/21/20 06:18 05/21/20 06:30 Glucose (Fingerstick) 202 mg/dL (70-99) 203 mg/dL (70-99) 160 mg/dL (70-99) Sodium Level 142 mmol/L (136-145) Potassium Level 2.1 mmol/L (3.5-5.1) Chloride Level 102 mmol/L (98-107) Carbon Dioxide Level 32 mmol/L (21-32) Anion Gap 8 (6-14) Blood Urea Nitrogen 36 mg/dL (7-20) Creatinine 1.2 mg/dL (0.6-1.0) Estimated GFR (Cockcroft-Gault) 43.9 Glucose Level 144 mg/dL (70-99) Calcium Level 8.2 mg/dL (8.5-10.1) Phosphorus Level 2.8 mg/dL (2.6-4.7) Magnesium Level 1.8 mg/dL (1.8-2.4) Albumin 1.9 g/dL (3.4-5.0) Micro Microbiology 05/15/20 Blood Culture - Preliminary, Resulted NO GROWTH AFTER 1 DAY Objective Assessment IMPRESSION: 1. Respiratory failure. 2. Coronary artery disease with acute myocardial infarction. 3. Pulmonary infiltrate, pneumonia versus congestive heart failure. 4. Chronic obstructive pulmonary disease exacerbation. 5. Acute kidney injury. 6. Hypertension. 7. Leukocytosis. 8 CAD s/p angioplasty Plan Plan of Care cont supportive care cont antibiotics,, cont zosyn for now extubation likely soon MASSIMO MIRELES MD May 21, 2020 07:51
[2020-05-21] MEDS: PRASUGREL 10 MG TABLET. PO SCH (08:00)
[2020-05-21] MEDS: ASPIRIN CHEWABLE 81 MG TABLET. PO SCH (08:00)
[2020-05-21] MEDS: BUDESONIDE 0.5 MG/2 ML NEBU. NEB SCH ×2 (08:27→20:07)
[2020-05-21] MEDS: IPRATRPIUM/ALBUTEROL 0.5/2.5MG 3 ML NEBU. NEB SCH ×3 (08:27→20:07)
--- NOTE | 2020-05-21 08:41 | PDOC ---
DARRION GARCIA HIGH WORKER 05/21/20 0840: CARDIO Progress Notes Date and Time Date of Service 05/21/2020 Time of Evaluation 0940 Subjective Subjective: No Chest Pain, No shortness of breath, No Palpitations Vitals Vitals Vital Signs Date Time Temp Pulse Resp B/P (MAP) Pulse Ox O2 Delivery O2 Flow Rate FiO2 05/21/20 08:27 95 Venturi Mask 12.0 05/21/20 06:00 79 27 140/64 (89) 05/21/20 04:00 97.9 97.9 Weight Weight [ ] Input and Output Intake and Output Intake and Output 05/21/20 07:00 Intake Total 1483 ml Output Total 4755 ml Balance -3272 ml IV Total 499 ml Tube Feeding 534 ml Other 450 ml Output Urine Total 3780 ml Stool Total 975 ml Laboratory Labs Laboratory Tests Test 05/20/20 11:36 05/20/20 14:30 05/20/20 17:58 05/20/20 21:25 Glucose (Fingerstick) 337 mg/dL (70-99) 246 mg/dL (70-99) 202 mg/dL (70-99) O2 Saturation 92 % (92-99) Arterial Blood pH 7.44 (7.35-7.45) Arterial Blood pCO2 at Patient Temp 37 mmHg (35-46) Arterial Blood pO2 at Patient Temp 61 mmHg (65-108) Arterial Blood HCO3 25 mmol/L (21-28) Arterial Blood Base Excess 1 mmol/L (-3-3) FiO2 35% Test 05/21/20 00:23 05/21/20 06:18 05/21/20 06:30 Glucose (Fingerstick) 203 mg/dL (70-99) 160 mg/dL (70-99) Sodium Level 142 mmol/L (136-145) Potassium Level 2.1 mmol/L (3.5-5.1) Chloride Level 102 mmol/L (98-107) Carbon Dioxide Level 32 mmol/L (21-32) Anion Gap 8 (6-14) Blood Urea Nitrogen 36 mg/dL (7-20) Creatinine 1.2 mg/dL (0.6-1.0) Estimated GFR (Cockcroft-Gault) 43.9 Glucose Level 144 mg/dL (70-99) Calcium Level 8.2 mg/dL (8.5-10.1) Phosphorus Level 2.8 mg/dL (2.6-4.7) Magnesium Level 1.8 mg/dL (1.8-2.4) Albumin 1.9 g/dL (3.4-5.0) Microbiology Micro Microbiology 05/15/20 Blood Culture - Final, Complete NO GROWTH AFTER 5 DAYS Review of Systems Constitutional: yes: other (UNABLE TO OBTAIN) Physical Exam HEENT: Neck Supple W Full Motion Chest: Symmetric LUNGS: Other (40% venti mask) Heart: RRR (SR), other (distant heart tones ) Abdomen: Other (obese) Extremities: Other (1+ bilateral LE edema ) Neurology: alert, follow commands Other Exams Right groin arteriotomy site intact, no hematoma, erythema, neurovascular status intact to bilateral LE Assessment Assessment 1. Acute respiratory failure with a/c CHF, AECOPD, and CAD Now extubated 2. Acute on chronic combined diastolic/systolic CHF 3. Abdominal pain; CT without acute findings 4. NSTEMI: 3VD. Peaked trop 45. POD#1 S/P PCI/SEAN to ostial LAD and distal left main with PTCA to proximal LAD ISR 5. Ischemic cardiomyopathy; Echo showed LVEF 45-50% 6. CAD s/p PCI/stent; Cath 06/12- LAD with ostial 50% stenosis, mid 100% ISR, and distal 90% ISR. s/p successful PTCA of the LAD. Given the small caliber of the vessels, repeat stenting was deferred. 7. Leukocytosis, lactic acidosis, periodic fever. ? sepsis. Antibiotics per ID 8. HTN: labile 9. Hyperlipidemia; LDL 25 10. AVIVA on CKD; much better 11. Hypokalemia: 2.1 12. Anemia: no obvious bleed, arteriotomy site good. Hgb at 8.3 post transfusion Recommendations 1. Awaiting swallow study. Once able to take PO then will place on GDMT. Labetolol IV PRN 2. Lasix therapy, monitor renal function. Replace K and Mg 3. Secondary prevention. ASA/effient 4. Statin therapy 5. Cardiac rehab 6. Continue metoprolol. 7. Vent weaning per pulmonary. Supportive care Justicifation of Admission Dx: Justifications for Admission: Justification of Admission Dx: N/A SHARYN BARFIELD MD 1/29/21 2214: CARDIO Progress Notes Plan Plan Pt. seen and examined. Agree with above [employer] JUDGE note. Supportive care. Doing well s/p PCI. Continue asa, prasugrel. Continue metoprolol and atorvastatin. Use nitrates and hydralazine for BP given recent renal failure. Recent echo with EF of 50%. Thanks DARRION GARCIA APRN May 21, 2020 08:40 SHARYN BARFIELD MD May 21, 2020 22:14
[2020-05-21] MEDS: METOPROLOL TART IMMED RELEASE 25 MG TABLET. PO SCH ×2 (09:00→20:09)
[2020-05-21] MEDS: buPROPion XL 150 MG TAB.ER.24H. PO SCH ×2 (09:00→20:10)
[2020-05-21] MEDS: DOCUSATE SODIUM 100 MG CAPSULE. PO SCH (09:00)
[2020-05-21] MEDS ORDERED: MAGNESIUM SULFATE 2GM 50 ML IV ONE (09:00)
[2020-05-21] MEDS: ASCORBIC ACID 500 MG TABLET PO SCH ×2 (09:00→20:09)
[2020-05-21] MEDS: POLYETHYLENE GLYCOL 3350 17 GM PACKET. PO SCH (09:00)
[2020-05-21] MEDS: ARIPiprazole 2 MG TABLET PO SCH (09:00)
[2020-05-21] MEDS: LABETALOL 20 MG/4 ML DISP.SYRIN. IVP PRN ×2 (09:28→13:32)
[2020-05-21] MEDS: PANTOPRAZOLE IV PUSH 40 MG VIAL. IVP SCH (09:28)
[2020-05-21] MEDS: FUROSEMIDE 40 MG/4 ML VIAL. IVP SCH (09:29)
[2020-05-21] MEDS: INSULIN GLARGINE SYRINGE. SQ SCH ×2 (09:31→22:58)
--- NOTE | 2020-05-21 10:28 | PDOC ---
[facility] PROGRESS NOTE Date of Service DOS: DATE: 05/21/20 TIME: 10:22 Chief Complaint Chief Complaint sepsis, severe sepsis, shock Acute hypoxemic respiratory failure, on COPD and ARIANNA currently on BiPAP, low threshold for intubation Severe triple-vessel disease status post LAD stent. Patient poor prognosis and poor surgical candidate date for CABG COVID risk, pt initial swab is negative acute acidosis on CKD 4, renal failure, DKA, acute acidosis with hyperosmolar syndrome, weaned off of insulin drip troponinemia, NSTEMI 2, demand, obese, BMI 39, some pickwickian habitus constipation, on chronic abdominal hernia, with abdominal pain History of Present Illness History of Present Illness 05/21/20 No acute events overnight. Patient currently tolerating on Venturi mask for 12 L saturating 98%. Potassium 2.1 will replace with IV potassium as needed. Patient is conversing well and pending speech evaluation to advance diet as tolerated. Patient's chart, labs, images were reviewed and discussed with RN 05/20/2020 No acute events overnight. Patient currently on minimal vent settings. We will remove femoral sheath today after holding heparin drip. Plan for extubation today. DC IV fluids. Patient's chart, labs, images were reviewed and discussed with RN 05/19/2020 No acute events overnight. Status post left heart cath. Still sedated and intubated. Vent settings 14/450/35 %/5. ABG: pH 7.4, PCO2 38, PO2 is 97, HCO3 23. Patient's chart, labs, images were reviewed and discussed with RN 05/18/2020 No acute events overnight. T-max of 99.8. Patient was intubated yesterday current ventilator settings of 18/500/80%/6. Potassium 2.9 today replace with 100 mEq of IV potassium. pH 7.51, PCO2 31, PO2 260, HCO3 24. Patient's chart, labs, images were reviewed and discussed with RN 05/17/2020 No acute events overnight. Patient remains afebrile. Tolerating BiPAP for now and saturating 100%.> 50% time spent in patient chart, labs, and imaging review and in discussion with RN and MARTIN 74 year old female admit for chest pain last night, pain started acutely while walking her dog, mid chest pain with tightness. she came by ambulance, and was newly hypoxic to mid 80's in the ER. she has a Hx CAD and stents, CV team called for EKG change, Dr. Joshua saw the pt in the ER, admit to ICU, broad spectrum abx given, CT angio done for pain, showed large amt of stool, no clear PNA Vitals/I&O Vitals/I&O: Vital Signs Date Time Temp Pulse Resp B/P (MAP) Pulse Ox O2 Delivery O2 Flow Rate FiO2 05/21/20 10:00 68 18 150/66 (94) 97 Venturi Mask 12.0 05/21/20 08:00 98.9 98.9 l I & O 05/20/20 05/20/20 05/21/20 15:00 23:00 07:00 Intake Total 899 ml 584 ml Output Total 1580 ml 1575 ml 1600 ml Balance -681 ml -991 ml -1600 ml Physical Exam Physical Exam: GENERAL: awake on 3 lit VITAL SIGNS: intubated on vent HEENT: Both pupils are round and reacting. No conjunctival lesion. No lesion in the mouth. NECK: Supple. No JVP. No lymphadenopathy. LUNGS: Clear. HEART: S1, S2 regular. ABDOMEN: Benign. EXTREMITIES: No edema or cyanosis. SKIN: Unremarkable. NEUROLOGIC: A and O x 3 , no focal deficit General: Alert, Cooperative, mild distress Heart: Regular rate Lungs: Other (decrease bs) Abdomen: Normal bowel sounds Extremities: No cyanosis, No edema Skin: No rashes Labs Labs: Laboratory Tests Test 05/20/20 11:36 05/20/20 14:30 05/20/20 17:58 05/20/20 21:25 Glucose (Fingerstick) 337 mg/dL (70-99) 246 mg/dL (70-99) 202 mg/dL (70-99) O2 Saturation 92 % (92-99) Arterial Blood pH 7.44 (7.35-7.45) Arterial Blood pCO2 at Patient Temp 37 mmHg (35-46) Arterial Blood pO2 at Patient Temp 61 mmHg (65-108) Arterial Blood HCO3 25 mmol/L (21-28) Arterial Blood Base Excess 1 mmol/L (-3-3) FiO2 35% Test 05/21/20 00:23 05/21/20 06:18 05/21/20 06:30 Glucose (Fingerstick) 203 mg/dL (70-99) 160 mg/dL (70-99) Sodium Level 142 mmol/L (136-145) Potassium Level 2.1 mmol/L (3.5-5.1) Chloride Level 102 mmol/L (98-107) Carbon Dioxide Level 32 mmol/L (21-32) Anion Gap 8 (6-14) Blood Urea Nitrogen 36 mg/dL (7-20) Creatinine 1.2 mg/dL (0.6-1.0) Estimated GFR (Cockcroft-Gault) 43.9 Glucose Level 144 mg/dL (70-99) Calcium Level 8.2 mg/dL (8.5-10.1) Phosphorus Level 2.8 mg/dL (2.6-4.7) Magnesium Level 1.8 mg/dL (1.8-2.4) Albumin 1.9 g/dL (3.4-5.0) Comment Review of Relevant I have reviewed the following items danisha (where applicable) has been applied. Medications: Current Medications Medications (Trade) Dose Ordered Sig/Morgan Route PRN Reason Start Time Stop Time Status Last Admin Dose Admin Hydrocortisone Sodium Succinate (Solu-CORTEF) 50 mg Q8HRS IVP 05/20/20 14:00 05/21/20 06:43 DC 05/21/20 06:20 Furosemide (Lasix) 40 mg 1X ONCE IVP 05/20/20 11:45 05/20/20 11:48 DC 05/20/20 12:18 Potassium Chloride/Water 100 ml @ 100 mls/hr Q1HR IV 05/21/20 08:00 05/21/20 15:59 05/21/20 10:00 Magnesium Sulfate 50 ml @ 25 mls/hr 1X ONCE IV 05/21/20 09:00 05/21/20 10:59 05/21/20 09:29 Labetalol HCl (Normodyne Iv Push) 20 mg PRN Q2HR PRN IVP HYPERTENSION 05/21/20 09:30 05/21/20 09:28 Justifications for Admission Other Justification RANJITH PACHECO MD May 21, 2020 10:28
--- NOTE | 2020-05-21 11:53 | PDOC ---
Renal-Progress Notes Subjective Notes Notes FEELING OK History of Present Illness Hx of present illness IMPROVED Vitals Vitals Vital Signs Date Time Temp Pulse Resp B/P (MAP) Pulse Ox O2 Delivery O2 Flow Rate FiO2 05/21/20 10:00 68 18 150/66 (94) 97 Venturi Mask 12.0 05/21/20 08:00 98.9 98.9 Weight Weight [ ] I.O. Intake and Output Intake and Output 05/21/20 07:00 Intake Total 1483 ml Output Total 4755 ml Balance -3272 ml IV Total 499 ml Tube Feeding 534 ml Other 450 ml Output Urine Total 3780 ml Stool Total 975 ml Labs Labs Laboratory Tests Test 05/20/20 14:30 05/20/20 17:58 05/20/20 21:25 05/21/20 00:23 O2 Saturation 92 % (92-99) Arterial Blood pH 7.44 (7.35-7.45) Arterial Blood pCO2 at Patient Temp 37 mmHg (35-46) Arterial Blood pO2 at Patient Temp 61 mmHg (65-108) Arterial Blood HCO3 25 mmol/L (21-28) Arterial Blood Base Excess 1 mmol/L (-3-3) FiO2 35% Glucose (Fingerstick) 246 mg/dL (70-99) 202 mg/dL (70-99) 203 mg/dL (70-99) Test 05/21/20 06:18 05/21/20 06:30 Glucose (Fingerstick) 160 mg/dL (70-99) Sodium Level 142 mmol/L (136-145) Potassium Level 2.1 mmol/L (3.5-5.1) Chloride Level 102 mmol/L (98-107) Carbon Dioxide Level 32 mmol/L (21-32) Anion Gap 8 (6-14) Blood Urea Nitrogen 36 mg/dL (7-20) Creatinine 1.2 mg/dL (0.6-1.0) Estimated GFR (Cockcroft-Gault) 43.9 Glucose Level 144 mg/dL (70-99) Calcium Level 8.2 mg/dL (8.5-10.1) Phosphorus Level 2.8 mg/dL (2.6-4.7) Magnesium Level 1.8 mg/dL (1.8-2.4) Albumin 1.9 g/dL (3.4-5.0) Micro Micro Microbiology 05/15/20 Blood Culture - Final, Complete NO GROWTH AFTER 5 DAYS Review of Systems Constitutional: yes: weakness, alert, oriented, other Ears/Nose/Throat: Yes: no symptom reported Eyes: Yes: no symptom reported Pulmonary: Yes no symptom reported Cardiovascular: Yes no symptom reported Genitourinary: Yes: no symptom reported Musculoskeletal: Yes: no symptom reported Skin: Yes no symptom reported Psychiatric/Neurological: Yes: no symptom reported Endocrine: Yes: no symptom reported Physical Exam General Appearance: no apparent distress Skin: warm Respiratory: decreased breath sounds Heart: S1S2 Abdomen: soft, bowel sounds present Genitourinary: bladder flat Extremities: pulses present Neurology: alert, oriented, follow commands Assessment Assessment IMP AVIVA-IMPROVING WITH CR OF 2.1 AMI - S/P PTCA AND STENT CKD STAGE 3 WITH CR ABOUT 1.5 ?CARDIAC INJURY-TROPONIN IS UP HYPOKALEMIA-REPLACED HYPONATREMIA-BETTER ACUTE RESP FAILURE-EXTUBATED PROBABLE PNEUMONIA LEUCOCYTOSIS DM II PLAN REPLACE K ANTIBIOTICS WILL FOLLOW ORION ARAYA MD May 21, 2020 11:53
--- NOTE | 2020-05-21 16:20 | NUR ---
Pt was placed on 4l nc at 1114 pt spo2 is good, pt is is breathing wnl and lungs are clear. pt and pt keep calling out stating she is having a hard time breathing. pt repositioned multiple times and appears to be in no distress by this RN and multiple others. Paged Dr Infante for continued anxiety and inability to give po medications d/t ST not clearing pt yet.
[2020-05-21] MEDS: METOPROLOL IV PUSH 5 MG/5 ML VIAL. IVP PRN (20:03)
[2020-05-21] MEDS: carBAMazepine 200 MG TABLET PO SCH (20:09)
[2020-05-21] MEDS: ATORVASTATIN CALCIUM 40 MG TABLET. PO SCH (20:09)
[2020-05-22] VITALS (13 sets, daily range): BP systolic 158–206; BP diastolic 70–112
[2020-05-22] MEDS: PIPERACILLIN/TAZOBACTAM 2.25 GM in IV NORMAL SALINE 50ML 50 ML IV SCH (05:16)
[2020-05-22] MEDS: INSULIN LISPRO 300 UNITS/3 ML VIAL. SQ SCH ×3 (05:16→18:44)
[2020-05-22] MEDS: METOPROLOL IV PUSH 5 MG/5 ML VIAL. IVP PRN (05:20)
[2020-05-22 05:50] LABS: CALCIUM 8.8 mg/dL (8.5-10.1); GFR 54.2; MAGNESIUM 1.8 mg/dL (1.8-2.4); PHOSPHORUS 2.2 mg/dL (2.6-4.7)
--- NOTE | 2020-05-22 07:02 | PDOC ---
Infectious Disease Note Subjective Subjective extubated , awake says s/p Ativan so sleepy ROS ROS unable to obtain Vital Sign Vital Signs Vital Signs Date Time Temp Pulse Resp B/P (MAP) Pulse Ox O2 Delivery O2 Flow Rate FiO2 05/22/20 05:20 94 189/89 05/22/20 04:00 97.9 22 97 Nasal Cannula 4.0 97.9 Physical Exam PHYSICAL EXAM GENERAL: awake on 3 lit HEENT: Both pupils are round and reacting. No conjunctival lesion. No lesion in the mouth. NECK: Supple. No JVP. No lymphadenopathy. LUNGS: Clear. HEART: S1, S2 regular. ABDOMEN: Benign. Rectal tube : nicole EXTREMITIES: No edema or cyanosis. SKIN: Unremarkable. NEUROLOGIC: Arousable Labs Lab Laboratory Tests Test 05/21/20 18:12 05/21/20 22:57 05/22/20 05:13 05/22/20 05:20 Glucose (Fingerstick) 219 mg/dL (70-99) 215 mg/dL (70-99) 169 mg/dL (70-99) Sodium Level 141 mmol/L (136-145) Potassium Level 3.0 mmol/L (3.5-5.1) Chloride Level 102 mmol/L (98-107) Carbon Dioxide Level 29 mmol/L (21-32) Anion Gap 10 (6-14) Blood Urea Nitrogen 24 mg/dL (7-20) Creatinine 1.0 mg/dL (0.6-1.0) Estimated GFR (Cockcroft-Gault) 54.2 Glucose Level 162 mg/dL (70-99) Calcium Level 8.8 mg/dL (8.5-10.1) Phosphorus Level 2.2 mg/dL (2.6-4.7) Magnesium Level 1.8 mg/dL (1.8-2.4) Albumin 2.0 g/dL (3.4-5.0) Micro Microbiology 05/15/20 Blood Culture - Final, Complete NO GROWTH AFTER 5 DAYS Objective Assessment 1. Respiratory failure better. 2. Coronary artery disease with acute myocardial infarction.s/p cath 05/18 3. Pulmonary infiltrate, pneumonia versus congestive heart failure. 4. Chronic obstructive pulmonary disease exacerbation. 5. Acute kidney injury - better. 6. Hypertension. 7. Leukocytosis - hydrocortisone done 05/21. 8 CAD s/p angioplasty 9, Anxiety - s/p meds Plan Plan of Care cont supportive care D/c gagandeep D/w nursing BRYAN CARDONA MD May 22, 2020 07:01
[2020-05-22] MEDS: POTASSIUM CHLORIDE 20MEQ 100 ML IV SCH ×4 (07:53→11:31)
[2020-05-22] MEDS: IPRATRPIUM/ALBUTEROL 0.5/2.5MG 3 ML NEBU. NEB SCH ×3 (08:00→20:45)
[2020-05-22] MEDS: BUDESONIDE 0.5 MG/2 ML NEBU. NEB SCH ×2 (08:00→20:00)
--- NOTE | 2020-05-22 08:19 | PDOC ---
PULMONARY PROGRESS NOTES DATE: 05/22/20 TIME: 08:17 Subjective Extubated on 05/20, now on 4 liters N/C Status post cardiac cath on 05/18 with PCI HTN per nursing Awaiting ST eval No overnight concerns from nursing Vitals Vital Signs Date Time Temp Pulse Resp B/P (MAP) Pulse Ox O2 Delivery O2 Flow Rate FiO2 05/22/20 08:04 92 Nasal Cannula 4.0 05/22/20 05:20 94 189/89 05/22/20 04:00 97.9 22 97.9 ROS: No Nausea, No Chest Pain, No Abdominal Pain, No Increase Cough General: Alert, Oriented X4 Lungs: Clear Cardiovascular: S1, S2 Abdomen: Soft, Other Extremities: Other (trace edema) Skin: Warm Labs Laboratory Tests Test 05/20/20 11:36 05/20/20 14:30 05/20/20 17:58 05/20/20 21:25 Glucose (Fingerstick) 337 mg/dL (70-99) 246 mg/dL (70-99) 202 mg/dL (70-99) O2 Saturation 92 % (92-99) Arterial Blood pH 7.44 (7.35-7.45) Arterial Blood pCO2 at Patient Temp 37 mmHg (35-46) Arterial Blood pO2 at Patient Temp 61 mmHg (65-108) Arterial Blood HCO3 25 mmol/L (21-28) Arterial Blood Base Excess 1 mmol/L (-3-3) FiO2 35% Test 05/21/20 00:23 05/21/20 06:18 05/21/20 06:30 05/21/20 18:12 Glucose (Fingerstick) 203 mg/dL (70-99) 160 mg/dL (70-99) 219 mg/dL (70-99) Sodium Level 142 mmol/L (136-145) Potassium Level 2.1 mmol/L (3.5-5.1) Chloride Level 102 mmol/L (98-107) Carbon Dioxide Level 32 mmol/L (21-32) Anion Gap 8 (6-14) Blood Urea Nitrogen 36 mg/dL (7-20) Creatinine 1.2 mg/dL (0.6-1.0) Estimated GFR (Cockcroft-Gault) 43.9 Glucose Level 144 mg/dL (70-99) Calcium Level 8.2 mg/dL (8.5-10.1) Phosphorus Level 2.8 mg/dL (2.6-4.7) Magnesium Level 1.8 mg/dL (1.8-2.4) Albumin 1.9 g/dL (3.4-5.0) Test 05/21/20 22:57 05/22/20 05:13 05/22/20 05:20 Glucose (Fingerstick) 215 mg/dL (70-99) 169 mg/dL (70-99) Sodium Level 141 mmol/L (136-145) Potassium Level 3.0 mmol/L (3.5-5.1) Chloride Level 102 mmol/L (98-107) Carbon Dioxide Level 29 mmol/L (21-32) Anion Gap 10 (6-14) Blood Urea Nitrogen 24 mg/dL (7-20) Creatinine 1.0 mg/dL (0.6-1.0) Estimated GFR (Cockcroft-Gault) 54.2 Glucose Level 162 mg/dL (70-99) Calcium Level 8.8 mg/dL (8.5-10.1) Phosphorus Level 2.2 mg/dL (2.6-4.7) Magnesium Level 1.8 mg/dL (1.8-2.4) Albumin 2.0 g/dL (3.4-5.0) Laboratory Tests Test 05/21/20 18:12 05/21/20 22:57 05/22/20 05:13 05/22/20 05:20 Glucose (Fingerstick) 219 mg/dL (70-99) 215 mg/dL (70-99) 169 mg/dL (70-99) Sodium Level 141 mmol/L (136-145) Potassium Level 3.0 mmol/L (3.5-5.1) Chloride Level 102 mmol/L (98-107) Carbon Dioxide Level 29 mmol/L (21-32) Anion Gap 10 (6-14) Blood Urea Nitrogen 24 mg/dL (7-20) Creatinine 1.0 mg/dL (0.6-1.0) Estimated GFR (Cockcroft-Gault) 54.2 Glucose Level 162 mg/dL (70-99) Calcium Level 8.8 mg/dL (8.5-10.1) Phosphorus Level 2.2 mg/dL (2.6-4.7) Magnesium Level 1.8 mg/dL (1.8-2.4) Albumin 2.0 g/dL (3.4-5.0) Medications Active Scripts Medications Dose Route/Sig Max Daily Dose Days Date Category Effient (Prasugrel Hcl) 10 Mg Tablet 10 Mg PO [id number] 30 06/10/19 Rx Furosemide 20 Mg Tablet 1 Tab PO DAILY 04/24/19 Reported Bupropion Xl (Bupropion Hcl) 150 Mg Tab.er.24h 150 Mg PO BID 04/24/19 Reported Tramadol Hcl 50 Mg Tablet 50 Mg PO Q4HRS PRN 04/24/19 Reported Cyclobenzaprine Hcl 5 Mg Tablet 5 Mg PO TID PRN 04/24/19 Reported Montelukast Sodium Tablet (Montelukast Sodium) 10 Mg Tablet 10 Mg PO HS 04/24/19 Reported Spironolactone 25 Mg Tablet 1 Tab PO DAILY 04/24/19 Reported Ranitidine Hcl 150 Mg Capsule 150 Mg PO DAILY 04/24/19 Reported Naproxen 500 Mg Tablet 1 Tab PO BID 30 04/24/19 Reported Atorvastatin Calcium 40 Mg Tablet 80 Mg PO QHS 12/02/18 Rx Abilify (Aripiprazole) 2 Mg Tablet 2 Mg PO DAILY 11/30/18 Reported Buspirone Hcl 15 Mg Tablet 15 Mg PO TID 11/30/18 Reported Tegretol (Carbamazepine) 200 Mg Tablet 200 Mg PO QHS 11/08/18 Reported Metoprolol Succinate ( Xl ) (Metoprolol Succinate) 25 Mg Tab.er.24h 12.5 Mg PO DAILY 11/08/18 Reported Klonopin (Clonazepam) 0.5 Mg Tablet 0.5 Mg PO PRN BID PRN 01/08/18 Reported Fish Oil 1,000 Mg Capsule ([place]-3 Fatty Acids/Fish Oil) 1 Each Capsule 1 Each PO TID 01/08/18 Reported Cymbalta (Duloxetine Hcl) 60 Mg Capsule.dr 120 Mg PO DAILY 01/08/18 Reported Loperamide (Loperamide Hcl) 2 Mg Capsule 2 Mg PO 01/04/18 Reported Zyrtec (Cetirizine Hcl) 10 Mg Tablet 1 Tab PO DAILY 01/04/18 Reported Zonisamide 100 Mg Capsule 100 Mg PO TID 12/14/17 Reported Protonix (Pantoprazole Sodium) 20 Mg Tablet.dr 40 Mg PO DAILY 12/14/17 Reported Nortriptyline Hcl 25 Mg Capsule 50 Mg PO HS 12/14/17 Reported Duoneb 0.5-3(2.5) Mg/3 Ml (Albuterol/Ipratropium) 3 Ml Ampul.neb 3 Ml NEB TID 12/14/17 Reported Multivitamins (Multivitamin) 1 Each Tablet 1 Tab PO DAILY 06/25/17 Reported Mirtazapine 15 Mg Tablet 30 Mg PO QHS 06/25/17 Reported Lisinopril 5 Mg Tablet 1 Tab PO DAILY 06/25/17 Reported Vitamin B-12 (Cyanocobalamin (Vitamin B-12)) 1,000 Mcg Tablet 1 Tab PO DAILY 06/25/17 Reported Vitamin D (Cholecalciferol (Vitamin D3)) 1,000 Unit Capsule 1 Cap PO DAILY 06/25/17 Reported Ascorbic Acid 500 Mg Tablet 500 Mg PO BID 06/25/17 Reported Voltaren (Diclofenac Sodium) 100 Gm Gel..gram. 100 Gm TP QID 02/02/15 Reported Levemir Flextouch (Insulin Detemir) 100 Unit/1 Ml Insuln.pen 36 Unit SQ BID 02/02/15 Reported Flonase Allergy Relief (Fluticasone Propionate) 9.9 Ml [place].susp 2 Spr NS DAILY 02/01/15 Reported Aspir 81 (Aspirin) 81 Mg Tablet.dr 81 Mg PO DAILY 09/03/13 Reported Ropinirole Hcl 1 Mg Tablet 1 Mg PO QHS 09/03/13 Reported Novolog (Insulin Aspart) 100 Unit/1 Ml Cartridge 6 Unit SQ TIDAC 09/03/13 Reported Comments CXR 05/20 reviewed no change, bilateral infiltrates Impression . 1. Acute hypoxemic respiratory failure, multifactorial in etiology including shock, myocardial infarction, chronic obstructive pulmonary disease with acute exacerbation, no pulmonary embolism-----now extubated on N/C 2. Abnormal CT of the chest./basal atelectasis 3. Elevated troponin, non-ST elevation myocardial infarction. 4. Shock ,cardiac--- resolved 5. Acute kidney injury--improved 6. Chronic kidney disease-- stable 7. Chest pain. 8. Chronic obstructive pulmonary disease with acute exacerbation. 9. Obesity, obstructive sleep apnea-hypopnea syndrome. Cardiac cath Conclusion 1. Acute on chronic systolic and diastolic heart failure, LVEDP 18 mmHg 2. Severe three-vessel coronary artery disease with culprit lesion involving the LAD 3. Successful balloon angioplasty of the proximal LAD in-stent restenosis with a 2.0 x 12 mm balloon 4. Successful PCI of the ostial LAD and distal left main with implantation of a 3.5 x 12 mm Xience Cinda SEAN. Recommendations 1. Aspirin 81 mg daily 2. Prasugrel 10 mg daily 3. Continuation of heparin drip for the next 24 hours 4. Overall, the patient has severe coronary artery disease and given her other comorbidities she has an overall poor prognosis but continue inotropic support at this time and we will try to wean from the ventilator over the next 48 hours after diuresis and stabilization of renal function and pulmonary status. Plan . PLAN: Continue current supplemental oxygen support, currently on 4 liters N/C NEBS, including Pulmicort Follow ID recs in regards to ABX -- currently off ABX Follow cultures--- no growth to date Follow cardiology recs--status post PCI on 05/18/2020 to the LAD, hypertension per cardiology Follow nephrology recs-- monitor renal function Physical therapy/Occupational Therapy/speech therapy-- awaiting ST eval DVT/GI PPX D/W RN and RT/ cardiology Okay to transfer out of the intensive care unit if okay with other consults CONRADO FAGAN MD May 22, 2020 08:19
[2020-05-22] MEDS: POLYETHYLENE GLYCOL 3350 17 GM PACKET. PO SCH (09:00)
[2020-05-22] MEDS: DOCUSATE SODIUM 100 MG CAPSULE. PO SCH (09:00)
[2020-05-22] MEDS: buPROPion XL 150 MG TAB.ER.24H. PO SCH ×2 (09:00→20:43)
[2020-05-22] MEDS: PANTOPRAZOLE IV PUSH 40 MG VIAL. IVP SCH (09:14)
[2020-05-22] MEDS: LABETALOL 20 MG/4 ML DISP.SYRIN. IVP PRN ×2 (09:14→13:25)
[2020-05-22] MEDS: INSULIN GLARGINE SYRINGE. SQ SCH ×2 (09:15→21:18)
[2020-05-22] MEDS: FUROSEMIDE 40 MG/4 ML VIAL. IVP SCH (09:15)
--- NOTE | 2020-05-22 11:05 | PDOC ---
[facility] PROGRESS NOTE Date of Service DOS: DATE: 05/22/20 TIME: 11:04 Chief Complaint Chief Complaint sepsis, severe sepsis, shock Acute hypoxemic respiratory failure, on COPD and ARIANNA currently on BiPAP, intubated. Extubated 05/20/2020 Severe triple-vessel disease status post LAD stent. Patient poor prognosis and poor surgical candidate date for CABG COVID risk, pt initial swab is negative acute acidosis on CKD 4, renal failure, DKA, acute acidosis with hyperosmolar syndrome, weaned off of insulin drip troponinemia, NSTEMI 2, demand, obese, BMI 39, some pickwickian habitus constipation, on chronic abdominal hernia, with abdominal pain History of Present Illness History of Present Illness 05/22/2020 No acute events overnight. Saturating 92% on 4 L nasal cannula. Patient remains chest pain-free. Hypokalemia today at 3.0, needing IV potassium replacement. Pending speech evaluation. Patient's chart, labs, images were reviewed and discussed with RN 05/21/20 No acute events overnight. Patient currently tolerating on Venturi mask for 12 L saturating 98%. Potassium 2.1 will replace with IV potassium as needed. Patient is conversing well and pending speech evaluation to advance diet as tolerated. Patient's chart, labs, images were reviewed and discussed with RN 05/20/2020 No acute events overnight. Patient currently on minimal vent settings. We will remove femoral sheath today after holding heparin drip. Plan for extubation today. DC IV fluids. Patient's chart, labs, images were reviewed and discussed with RN 05/19/2020 No acute events overnight. Status post left heart cath. Still sedated and intubated. Vent settings 14/450/35 %/5. ABG: pH 7.4, PCO2 38, PO2 is 97, HCO3 23. Patient's chart, labs, images were reviewed and discussed with RN 05/18/2020 No acute events overnight. T-max of 99.8. Patient was intubated yesterday current ventilator settings of 18/500/80%/6. Potassium 2.9 today replace with 100 mEq of IV potassium. pH 7.51, PCO2 31, PO2 260, HCO3 24. Patient's chart, labs, images were reviewed and discussed with RN 05/17/2020 No acute events overnight. Patient remains afebrile. Tolerating BiPAP for now and saturating 100%.> 50% time spent in patient chart, labs, and imaging review and in discussion with RN and SW 74 year old female admit for chest pain last night, pain started acutely while walking her dog, mid chest pain with tightness. she came by ambulance, and was newly hypoxic to mid 80's in the ER. she has a Hx CAD and stents, CV team called for EKG change, Dr. Joshua saw the pt in the ER, admit to ICU, broad spectrum abx given, CT angio done for pain, showed large amt of stool, no clear PNA Vitals/I&O Vitals/I&O: Vital Signs Date Time Temp Pulse Resp B/P (MAP) Pulse Ox O2 Delivery O2 Flow Rate FiO2 05/22/20 09:14 104 196/96 05/22/20 08:04 92 Nasal Cannula 4.0 05/22/20 04:00 97.9 22 97.9 I & O 05/21/20 05/21/20 05/22/20 15:00 23:00 07:00 Output Total 3000 ml 1850 ml 700 ml Balance -3000 ml -1850 ml -700 ml Physical Exam Physical Exam: GENERAL: awake on 3 lit HEENT: Both pupils are round and reacting. No conjunctival lesion. No lesion in the mouth. NECK: Supple. No JVP. No lymphadenopathy. LUNGS: Clear. HEART: S1, S2 regular. ABDOMEN: Benign. Rectal tube : nicole EXTREMITIES: No edema or cyanosis. SKIN: Unremarkable. NEUROLOGIC: Arousable General: Alert, Cooperative, mild distress Heart: Regular rate Lungs: Clear Abdomen: Normal bowel sounds Extremities: No cyanosis, No edema Skin: No rashes Labs Labs: Laboratory Tests Test 05/21/20 18:12 05/21/20 22:57 05/22/20 05:13 05/22/20 05:20 Glucose (Fingerstick) 219 mg/dL (70-99) 215 mg/dL (70-99) 169 mg/dL (70-99) Sodium Level 141 mmol/L (136-145) Potassium Level 3.0 mmol/L (3.5-5.1) Chloride Level 102 mmol/L (98-107) Carbon Dioxide Level 29 mmol/L (21-32) Anion Gap 10 (6-14) Blood Urea Nitrogen 24 mg/dL (7-20) Creatinine 1.0 mg/dL (0.6-1.0) Estimated GFR (Cockcroft-Gault) 54.2 Glucose Level 162 mg/dL (70-99) Calcium Level 8.8 mg/dL (8.5-10.1) Phosphorus Level 2.2 mg/dL (2.6-4.7) Magnesium Level 1.8 mg/dL (1.8-2.4) Albumin 2.0 g/dL (3.4-5.0) Comment Review of Relevant I have reviewed the following items danisha (where applicable) has been applied. Medications: Current Medications Medications (Trade) Dose Ordered Sig/Morgan Route PRN Reason Start Time Stop Time Status Last Admin Dose Admin Lorazepam (Ativan Inj) 0.25 mg PRN Q6HRS PRN IVP ANXIETY / AGITATION 05/21/20 16:30 05/22/20 06:45 Metoprolol Tartrate (Lopressor Vial) 5 mg PRN Q8HRS PRN IVP HYPERTENSION 05/21/20 19:45 05/22/20 05:20 Potassium Chloride/Water 100 ml @ 100 mls/hr Q1H IV 05/22/20 07:30 05/22/20 11:29 05/22/20 10:33 Justifications for Admission Other Justification RANJITH PACHECO MD May 22, 2020 11:05
--- NOTE | 2020-05-22 12:38 | PDOC ---
PROGRESS NOTES Date of Service: DATE: 05/22/20 TIME: 12:33 Subjective Subjective Denied any chest pain. Saturating 92% on 4 L oxygen per nasal cannula. Objective Objective Vital Signs Date Time Temp Pulse Resp B/P (MAP) Pulse Ox O2 Delivery O2 Flow Rate FiO2 05/22/20 09:14 104 196/96 05/22/20 08:04 92 Nasal Cannula 4.0 05/22/20 04:00 97.9 22 97.9 Intake and Output 05/22/20 07:00 Output Total 5550 ml Balance -5550 ml Output Urine Total 4550 ml Stool Total 1000 ml Physical Exam Abdomen: Normal bowel sounds Heart: Regular rate Extremities: No cyanosis, No edema General: Alert, Cooperative HEENT: PERRLA, Mucous membr. moist/pink Lungs: Other (Decreased breath sounds) MUSCULOSKELETAL: No joint tenderness Neuro: Normal speech Psych/Mental Status: Mental status NL, Mood NL Skin: No rashes Assessment Assessment 1. Acute respiratory failure with a/c CHF, AECOPD, and CAD, s/p extubation, doing well. Pulmonary team following. 2. Acute on chronic combined diastolic/systolic CHF, clinically better compensated. Continue current medical regimen. 3. Abdominal pain; CT without acute findings 4. NSTEMI: 3VD. POD#1 S/P PCI/SEAN to ostial LAD and distal left main with PTCA to proximal LAD ISR. Patient has swallow study scheduled today. If she fails this, we will place Dobbhoff and gave prasugrel due to recent stent placement. 5. Ischemic cardiomyopathy; Echo showed LVEF 45-50% 6. DM with DKA: Per IM 8. HTN: labile, we will titrate oral medications once able to take p.o. 9. Hyperlipidemia; statin therapy 10. AVIVA on CKD; improved Comment Review of Relevant I have reviewed the following items danisha (where applicable) has been applied. Labs Laboratory Tests Test 05/21/20 18:12 05/21/20 22:57 05/22/20 05:13 05/22/20 05:20 Glucose (Fingerstick) 219 mg/dL (70-99) 215 mg/dL (70-99) 169 mg/dL (70-99) Sodium Level 141 mmol/L (136-145) Potassium Level 3.0 mmol/L (3.5-5.1) Chloride Level 102 mmol/L (98-107) Carbon Dioxide Level 29 mmol/L (21-32) Anion Gap 10 (6-14) Blood Urea Nitrogen 24 mg/dL (7-20) Creatinine 1.0 mg/dL (0.6-1.0) Estimated GFR (Cockcroft-Gault) 54.2 Glucose Level 162 mg/dL (70-99) Calcium Level 8.8 mg/dL (8.5-10.1) Phosphorus Level 2.2 mg/dL (2.6-4.7) Magnesium Level 1.8 mg/dL (1.8-2.4) Albumin 2.0 g/dL (3.4-5.0) Microbiology 05/15/20 Blood Culture - Final, Complete NO GROWTH AFTER 5 DAYS Medications Current Medications Lorazepam (Ativan Inj) 0.25 mg PRN Q6HRS PRN IVP ANXIETY / AGITATION Last administered on 05/22/20at 06:45; Start 05/21/20 at 16:30 Metoprolol Tartrate (Lopressor Vial) 5 mg PRN Q8HRS PRN IVP HYPERTENSION Last administered on 05/22/20at 05:20; Start 05/21/20 at 19:45 Potassium Chloride/Water 100 ml @ 100 mls/hr Q1H IV Last administered on 05/22/20at 11:31; Start 05/22/20 at 07:30; Stop 05/22/20 at 11:29; Status DC Vitals/I & O Vital Sign - Last 24 Hours 05/21/20 05/21/20 05/21/20 05/21/20 13:32 15:29 16:00 20:00 Temp 98.7 98.7 Pulse 89 78 86 Resp 26 26 B/P (MAP) 185/84 176/88 (117) 176/101 (126) Pulse Ox 95 97 100 O2 Delivery Nasal Cannula Nasal Cannula Nasal Cannula O2 Flow Rate 4.0 4.0 4.0 05/21/20 05/21/20 05/21/20 05/22/20 20:00 20:03 20:11 00:00 Pulse 86 80 Resp 22 B/P (MAP) 176/101 158/70 (99) Pulse Ox 96 97 O2 Delivery Nasal Cannula Nasal Cannula Nasal Cannula O2 Flow Rate 4.0 4.0 4.0 05/22/20 05/22/20 05/22/20/30/21 04:00 05:20 08:04 09:14 Temp 97.9 97.9 Pulse 92 94 104 Resp 22 B/P (MAP) 175/82 (113) 189/89 196/96 Pulse Ox 97 92 O2 Delivery Nasal Cannula Nasal Cannula O2 Flow Rate 4.0 4.0 Intake and Output 05/21/20 05/21/20 05/22/20 15:00 23:00 07:00 Output Total 3000 ml 1850 ml 700 ml Balance -3000 ml -1850 ml -700 ml ELIZABETH SNYDER MD May 22, 2020 12:38
--- NOTE | 2020-05-22 15:16 | PDOC ---
Renal-Progress Notes Subjective Notes Notes SOB TODAY History of Present Illness Hx of present illness OVERALL STABLE Vitals Vitals Vital Signs Date Time Temp Pulse Resp B/P (MAP) Pulse Ox O2 Delivery O2 Flow Rate FiO2 05/22/20 15:00 96 18 206/92 (130) 97 Nasal Cannula 4.0 05/22/20 04:00 97.9 97.9 Weight Weight [ ] I.O. Intake and Output Intake and Output 05/22/20 07:00 Output Total 5550 ml Balance -5550 ml Output Urine Total 4550 ml Stool Total 1000 ml Labs Labs Laboratory Tests Test 05/21/20 18:12 05/21/20 22:57 05/22/20 05:13 05/22/20 05:20 Glucose (Fingerstick) 219 mg/dL (70-99) 215 mg/dL (70-99) 169 mg/dL (70-99) Sodium Level 141 mmol/L (136-145) Potassium Level 3.0 mmol/L (3.5-5.1) Chloride Level 102 mmol/L (98-107) Carbon Dioxide Level 29 mmol/L (21-32) Anion Gap 10 (6-14) Blood Urea Nitrogen 24 mg/dL (7-20) Creatinine 1.0 mg/dL (0.6-1.0) Estimated GFR (Cockcroft-Gault) 54.2 Glucose Level 162 mg/dL (70-99) Calcium Level 8.8 mg/dL (8.5-10.1) Phosphorus Level 2.2 mg/dL (2.6-4.7) Magnesium Level 1.8 mg/dL (1.8-2.4) Albumin 2.0 g/dL (3.4-5.0) Micro Micro Microbiology 05/15/20 Blood Culture - Final, Complete NO GROWTH AFTER 5 DAYS Review of Systems Constitutional: yes: weakness, alert, oriented, other Ears/Nose/Throat: Yes: no symptom reported Eyes: Yes: no symptom reported Pulmonary: Yes dyspnea Cardiovascular: Yes no symptom reported Genitourinary: Yes: no symptom reported Musculoskeletal: Yes: no symptom reported Skin: Yes no symptom reported Psychiatric/Neurological: Yes: no symptom reported Endocrine: Yes: no symptom reported Physical Exam General Appearance: no apparent distress Skin: warm Respiratory: decreased breath sounds Heart: S1S2 Abdomen: soft, bowel sounds present Genitourinary: bladder flat Extremities: pulses present Neurology: alert, oriented, follow commands Assessment Assessment IMP AVIVA-IMPROVING WITH CR OF 1.0 AMI - S/P PTCA AND STENT CKD STAGE 3 WITH CR ABOUT 1.5 HYPOKALEMIA LOW PO4 HYPONATREMIA-BETTER ACUTE RESP FAILURE-EXTUBATED PROBABLE PNEUMONIA PROB HYPERVOLEMIA LEUCOCYTOSIS DM II PLAN REPLACE K AND PO4 IV LASIX ANTIBIOTICS WILL FOLLOW ORION ARAYA MD May 22, 2020 15:16
[2020-05-22] MEDS ORDERED: FUROSEMIDE 40 MG/4 ML VIAL. IVP ONE (15:30)
[2020-05-22] MEDS ORDERED: POTASSIUM CHLORIDE 20 MEQ TABLET.ER. PO ONE (15:30)
[2020-05-22] MEDS ORDERED: MAGNESIUM SULFATE 2GM 50 ML IV ONE (15:30)
[2020-05-22] MEDS: POTASSIUM PHOS,M-BASIC-D-BASIC 13.6 MMOL in IV NORMAL SALINE 250ML 250 ML IV SCH ×2 (16:22→19:12)
--- NOTE | 2020-05-22 16:43 | NUR ---
pt constantly calling out for the same thing within minutes of being told the poc. for instance, had a wait for kub results to give pt medications, informed pt of this, walked out of room , call light went off, pt asking when she will get her medications ,informed her again we had to wait for xray results. pt highly anxious and forgetful. pt now on 2l nc, spo2 95% awaiting bed upstairs
--- NOTE | 2020-05-22 16:51 | RAD ---
EXAM: Abdomen, single view. HISTORY: Dobbhoff placement. COMPARISON: None. FINDINGS: A frontal view of the upper abdomen is obtained. There is an enteric feeding catheter withi n the stomach. There is a central venous catheter within the right atrium. There is mild diffuse inte rstitial prominence. There is a prominent cardiac silhouette. There are suspected trace pleural effus ions. IMPRESSION: Enteric catheter within the stomach. Electronically signed by: Vane Palafox MD (05/22/2020 4:48 PM) [facility]
[2020-05-22] MEDS: METOPROLOL TART IMMED RELEASE 25 MG TABLET. PO SCH ×2 (17:17→20:43)
[2020-05-22] MEDS: ARIPiprazole 2 MG TABLET PO SCH (17:17)
[2020-05-22] MEDS: PRASUGREL 10 MG TABLET. PO SCH (17:17)
[2020-05-22] MEDS: ASPIRIN CHEWABLE 81 MG TABLET. PO SCH (17:17)
[2020-05-22] MEDS: ASCORBIC ACID 500 MG TABLET PO SCH ×2 (17:17→20:43)
--- NOTE | 2020-05-22 18:00 | NUR ---
dobhoff was inserted, pt tolerated well, verified by xray. medications given and one syringe of water flush able to be given but the tube clogged off after half a syringe of water flush, attempted to resolve, told cvc rn about it, she was going to troubleshoot and if not remove
--- NOTE | 2020-05-22 18:35 | NUR ---
pt and all belongings sent to room 201, report given to pepe aparicio, called pt chad and let him know.
[2020-05-22] MEDS: carBAMazepine 200 MG TABLET PO SCH (20:42)
[2020-05-22] MEDS: ATORVASTATIN CALCIUM 40 MG TABLET. PO SCH (20:43)
[2020-05-23] VITALS (7 sets, daily range): BP systolic 156–193; BP diastolic 80–98
[2020-05-23] MEDS: INSULIN LISPRO 300 UNITS/3 ML VIAL. SQ SCH ×5 (00:05→23:26)
[2020-05-23 06:52] LABS: CALCIUM 9.1 mg/dL (8.5-10.1); CREATININE 1.2 mg/dL (0.6-1.0); GFR 43.9; MAGNESIUM 1.8 mg/dL (1.8-2.4); PHOSPHORUS 4.3 mg/dL (2.6-4.7); POTASSIUM 3.6 mmol/L (3.5-5.1)
[2020-05-23] MEDS: IPRATRPIUM/ALBUTEROL 0.5/2.5MG 3 ML NEBU. NEB SCH ×3 (07:32→19:53)
[2020-05-23] MEDS: BUDESONIDE 0.5 MG/2 ML NEBU. NEB SCH ×2 (07:32→19:53)
[2020-05-23] MEDS: POLYETHYLENE GLYCOL 3350 17 GM PACKET. PO SCH (07:56)
[2020-05-23] MEDS: DOCUSATE SODIUM 100 MG CAPSULE. PO SCH (07:56)
[2020-05-23] MEDS: ASCORBIC ACID 500 MG TABLET PO SCH ×2 (08:05→20:17)
[2020-05-23] MEDS: ARIPiprazole 2 MG TABLET PO SCH (08:06)
[2020-05-23] MEDS: FUROSEMIDE 40 MG/4 ML VIAL. IVP SCH (08:06)
[2020-05-23] MEDS: PRASUGREL 10 MG TABLET. PO SCH (08:06)
[2020-05-23] MEDS: METOPROLOL TART IMMED RELEASE 25 MG TABLET. PO SCH ×2 (08:06→20:16)
[2020-05-23] MEDS: ASPIRIN CHEWABLE 81 MG TABLET. PO SCH (08:06)
[2020-05-23] MEDS: buPROPion XL 150 MG TAB.ER.24H. PO SCH ×2 (08:06→20:17)
[2020-05-23] MEDS: PANTOPRAZOLE IV PUSH 40 MG VIAL. IVP SCH (08:07)
--- NOTE | 2020-05-23 08:47 | PDOC ---
Infectious Disease Note Subjective Subjective Better this am. Occ cough No F/C/N/V/SOA ROS ROS o/w neg Vital Sign Vital Signs Vital Signs Date Time Temp Pulse Resp B/P (MAP) Pulse Ox O2 Delivery O2 Flow Rate FiO2 05/23/20 08:06 106 187/89 05/23/20 07:32 92 Nasal Cannula 3.0 05/23/20 03:10 98.3 24 98.3 Physical Exam PHYSICAL EXAM GENERAL: awake on 3 lit, coop and looks comfortable HEENT: Both pupils are round and reacting. No conjunctival lesion. No lesion in the mouth. NECK: Supple. No JVP. No lymphadenopathy. LUNGS: Clear. HEART: S1, S2 regular. ABDOMEN: Benign. Dobhoff : nicole EXTREMITIES: No edema or cyanosis. SKIN: Unremarkable. NEUROLOGIC: Alert and coop IV: clean IJ Labs Lab Laboratory Tests Test 05/22/20 18:34 05/22/20 23:32 05/23/20 06:27 05/23/20 06:30 Glucose (Fingerstick) 301 mg/dL (70-99) 241 mg/dL (70-99) 271 mg/dL (70-99) Sodium Level 140 mmol/L (136-145) Potassium Level 3.6 mmol/L (3.5-5.1) Chloride Level 100 mmol/L (98-107) Carbon Dioxide Level 27 mmol/L (21-32) Anion Gap 13 (6-14) Blood Urea Nitrogen 33 mg/dL (7-20) Creatinine 1.2 mg/dL (0.6-1.0) Estimated GFR (Cockcroft-Gault) 43.9 Glucose Level 268 mg/dL (70-99) Calcium Level 9.1 mg/dL (8.5-10.1) Phosphorus Level 4.3 mg/dL (2.6-4.7) Magnesium Level 1.8 mg/dL (1.8-2.4) Micro Microbiology 05/15/20 Blood Culture - Final, Complete NO GROWTH AFTER 5 DAYS Objective Assessment 1. Respiratory failure better. 2. Coronary artery disease with acute myocardial infarction.s/p cath 05/18 3. Pulmonary infiltrate, pneumonia versus congestive heart failure. 4. Chronic obstructive pulmonary disease exacerbation. 5. Acute kidney injury - better. 6. Hypertension. 7. Leukocytosis - hydrocortisone done 05/21. 8 CAD s/p angioplasty 9, Anxiety - s/p meds Plan Plan of Care cont supportive care D/c gagandeep 05/22 D/w nursing BRYAN CARDONA MD May 23, 2020 08:47
--- NOTE | 2020-05-23 09:12 | PDOC ---
PULMONARY PROGRESS NOTES DATE: 05/23/20 TIME: 09:09 Subjective Extubated on 05/20, now on 4 liters N/C Status post cardiac cath on 05/18 with PCI low grade fever No overnight concerns from nursing Vitals Vital Signs Date Time Temp Pulse Resp B/P (MAP) Pulse Ox O2 Delivery O2 Flow Rate FiO2 05/23/20 08:06 106 187/89 05/23/20 07:32 92 Nasal Cannula 3.0 05/23/20 03:10 98.3 24 98.3 ROS: No Nausea, No Chest Pain, No Abdominal Pain, No Increase Cough General: Alert, Oriented X4 Lungs: Clear Cardiovascular: S1, S2 Abdomen: Soft, Other Extremities: Other (trace edema) Skin: Warm Labs Laboratory Tests Test 05/21/20 18:12 05/21/20 22:57 05/22/20 05:13 05/22/20 05:20 Glucose (Fingerstick) 219 mg/dL (70-99) 215 mg/dL (70-99) 169 mg/dL (70-99) Sodium Level 141 mmol/L (136-145) Potassium Level 3.0 mmol/L (3.5-5.1) Chloride Level 102 mmol/L (98-107) Carbon Dioxide Level 29 mmol/L (21-32) Anion Gap 10 (6-14) Blood Urea Nitrogen 24 mg/dL (7-20) Creatinine 1.0 mg/dL (0.6-1.0) Estimated GFR (Cockcroft-Gault) 54.2 Glucose Level 162 mg/dL (70-99) Calcium Level 8.8 mg/dL (8.5-10.1) Phosphorus Level 2.2 mg/dL (2.6-4.7) Magnesium Level 1.8 mg/dL (1.8-2.4) Albumin 2.0 g/dL (3.4-5.0) Test 05/22/20 18:34 05/22/20 23:32 05/23/20 06:27 05/23/20 06:30 Glucose (Fingerstick) 301 mg/dL (70-99) 241 mg/dL (70-99) 271 mg/dL (70-99) Sodium Level 140 mmol/L (136-145) Potassium Level 3.6 mmol/L (3.5-5.1) Chloride Level 100 mmol/L (98-107) Carbon Dioxide Level 27 mmol/L (21-32) Anion Gap 13 (6-14) Blood Urea Nitrogen 33 mg/dL (7-20) Creatinine 1.2 mg/dL (0.6-1.0) Estimated GFR (Cockcroft-Gault) 43.9 Glucose Level 268 mg/dL (70-99) Calcium Level 9.1 mg/dL (8.5-10.1) Phosphorus Level 4.3 mg/dL (2.6-4.7) Magnesium Level 1.8 mg/dL (1.8-2.4) Laboratory Tests Test 05/22/20 18:34 05/22/20 23:32 05/23/20 06:27 05/23/20 06:30 Glucose (Fingerstick) 301 mg/dL (70-99) 241 mg/dL (70-99) 271 mg/dL (70-99) Sodium Level 140 mmol/L (136-145) Potassium Level 3.6 mmol/L (3.5-5.1) Chloride Level 100 mmol/L (98-107) Carbon Dioxide Level 27 mmol/L (21-32) Anion Gap 13 (6-14) Blood Urea Nitrogen 33 mg/dL (7-20) Creatinine 1.2 mg/dL (0.6-1.0) Estimated GFR (Cockcroft-Gault) 43.9 Glucose Level 268 mg/dL (70-99) Calcium Level 9.1 mg/dL (8.5-10.1) Phosphorus Level 4.3 mg/dL (2.6-4.7) Magnesium Level 1.8 mg/dL (1.8-2.4) Medications Active Scripts Medications Dose Route/Sig Max Daily Dose Days Date Category Effient (Prasugrel Hcl) 10 Mg Tablet 10 Mg PO [id number] 30 06/10/19 Rx Furosemide 20 Mg Tablet 1 Tab PO DAILY 04/24/19 Reported Bupropion Xl (Bupropion Hcl) 150 Mg Tab.er.24h 150 Mg PO BID 04/24/19 Reported Tramadol Hcl 50 Mg Tablet 50 Mg PO Q4HRS PRN 04/24/19 Reported Cyclobenzaprine Hcl 5 Mg Tablet 5 Mg PO TID PRN 04/24/19 Reported Montelukast Sodium Tablet (Montelukast Sodium) 10 Mg Tablet 10 Mg PO HS 04/24/19 Reported Spironolactone 25 Mg Tablet 1 Tab PO DAILY 04/24/19 Reported Ranitidine Hcl 150 Mg Capsule 150 Mg PO DAILY 04/24/19 Reported Naproxen 500 Mg Tablet 1 Tab PO BID 30 04/24/19 Reported Atorvastatin Calcium 40 Mg Tablet 80 Mg PO QHS 12/02/18 Rx Abilify (Aripiprazole) 2 Mg Tablet 2 Mg PO DAILY 11/30/18 Reported Buspirone Hcl 15 Mg Tablet 15 Mg PO TID 11/30/18 Reported Tegretol (Carbamazepine) 200 Mg Tablet 200 Mg PO QHS 11/08/18 Reported Metoprolol Succinate ( Xl ) (Metoprolol Succinate) 25 Mg Tab.er.24h 12.5 Mg PO DAILY 11/08/18 Reported Klonopin (Clonazepam) 0.5 Mg Tablet 0.5 Mg PO PRN BID PRN 01/08/18 Reported Fish Oil 1,000 Mg Capsule ([place]-3 Fatty Acids/Fish Oil) 1 Each Capsule 1 Each PO TID 01/08/18 Reported Cymbalta (Duloxetine Hcl) 60 Mg Capsule.dr 120 Mg PO DAILY 01/08/18 Reported Loperamide (Loperamide Hcl) 2 Mg Capsule 2 Mg PO 01/04/18 Reported Zyrtec (Cetirizine Hcl) 10 Mg Tablet 1 Tab PO DAILY 01/04/18 Reported Zonisamide 100 Mg Capsule 100 Mg PO TID 12/14/17 Reported Protonix (Pantoprazole Sodium) 20 Mg Tablet.dr 40 Mg PO DAILY 12/14/17 Reported Nortriptyline Hcl 25 Mg Capsule 50 Mg PO HS 12/14/17 Reported Duoneb 0.5-3(2.5) Mg/3 Ml (Albuterol/Ipratropium) 3 Ml Ampul.neb 3 Ml NEB TID 12/14/17 Reported Multivitamins (Multivitamin) 1 Each Tablet 1 Tab PO DAILY 06/25/17 Reported Mirtazapine 15 Mg Tablet 30 Mg PO QHS 06/25/17 Reported Lisinopril 5 Mg Tablet 1 Tab PO DAILY 06/25/17 Reported Vitamin B-12 (Cyanocobalamin (Vitamin B-12)) 1,000 Mcg Tablet 1 Tab PO DAILY 06/25/17 Reported Vitamin D (Cholecalciferol (Vitamin D3)) 1,000 Unit Capsule 1 Cap PO DAILY 06/25/17 Reported Ascorbic Acid 500 Mg Tablet 500 Mg PO BID 06/25/17 Reported Voltaren (Diclofenac Sodium) 100 Gm Gel..gram. 100 Gm TP QID 02/02/15 Reported Levemir Flextouch (Insulin Detemir) 100 Unit/1 Ml Insuln.pen 36 Unit SQ BID 02/02/15 Reported Flonase Allergy Relief (Fluticasone Propionate) 9.9 Ml [place].susp 2 Spr NS DAILY 02/01/15 Reported Aspir 81 (Aspirin) 81 Mg Tablet.dr 81 Mg PO DAILY 09/03/13 Reported Ropinirole Hcl 1 Mg Tablet 1 Mg PO QHS 09/03/13 Reported Novolog (Insulin Aspart) 100 Unit/1 Ml Cartridge 6 Unit SQ TIDAC 09/03/13 Reported Comments CXR 05/20 reviewed no change, bilateral infiltrates Impression . 1. Acute hypoxemic respiratory failure, multifactorial in etiology including shock, myocardial infarction, chronic obstructive pulmonary disease with acute exacerbation, no pulmonary embolism-----now extubated on N/C 2. Abnormal CT of the chest./basal atelectasis 3. Elevated troponin, non-ST elevation myocardial infarction--NSTEMI: 3VD. POD#1 S/P PCI/SEAN to ostial LAD and distal left main with PTCA to proximal LAD I SR. Patient has swallow study scheduled today. 5. Ischemic cardiomyopathy; Echo showed LVEF 45-50% 4. Shock ,cardiac--- resolved 5. Acute kidney injury--improved 6. Chronic kidney disease-- stable 7. Chest pain. 8. Chronic obstructive pulmonary disease with acute exacerbation. 9. Obesity, obstructive sleep apnea-hypopnea syndrome. Cardiac cath Conclusion 1. Acute on chronic systolic and diastolic heart failure, LVEDP 18 mmHg 2. Severe three-vessel coronary artery disease with culprit lesion involving the LAD 3. Successful balloon angioplasty of the proximal LAD in-stent restenosis with a 2.0 x 12 mm balloon 4. Successful PCI of the ostial LAD and distal left main with implantation of a 3.5 x 12 mm Xience Cinda SEAN. Recommendations 1. Aspirin 81 mg daily 2. Prasugrel 10 mg daily 3. Continuation of heparin drip for the next 24 hours 4. Overall, the patient has severe coronary artery disease and given her other comorbidities she has an overall poor prognosis but continue inotropic support at this time and we will try to wean from the ventilator over the next 48 hours after diuresis and stabilization of renal function and pulmonary status. Plan . PLAN: Continue current supplemental oxygen support, currently on 4 liters N/C NEBS, including Pulmicort CXR today Follow ID recs in regards to ABX -- currently off ABX Follow cultures--- no growth to date Follow cardiology recs--status post PCI on 05/18/2020 to the LAD, hypertension and diruesis per cardiology Follow nephrology recs-- monitor renal function HTN per PCP Physical therapy/Occupational Therapy/speech therapy-- Failed Swallow study, now has dobphoff DVT/GI PPX D/W RN and RT CONRADO FAGAN MD May 23, 2020 09:12
[2020-05-23] MEDS: INSULIN GLARGINE SYRINGE. SQ SCH ×2 (09:14→21:03)
--- NOTE | 2020-05-23 10:00 | RAD ---
Chest AP portable at 0930: Reason for examination: Short of breath. Comparison is made to previous study dated 12/18/2020. Central venous line and Dobbhoff tube remain in place. Endotracheal tube has been removed. Heart and mediastinum are unchanged. Lung issa continue show bibasilar opacities without significant interval change. No acute bony abnormalities are seen. There are some chronic changes at the right shoulder. IMPRESSION: Persistent bibasilar opacities without significant interval change. Electronically signed by: Blanche Garcia MD (05/23/2020 9:49 AM) [facility]
[2020-05-23] MEDS ORDERED: PHENOL ORAL SPRAY 177ML BOTTLE. PO PRN (10:15)
--- NOTE | 2020-05-23 10:39 | PDOC ---
PROGRESS NOTES Date of Service: DATE: 05/23/20 TIME: 10:39 Subjective Subjective Patient denied any chest pain. Objective Objective Vital Signs Date Time Temp Pulse Resp B/P (MAP) Pulse Ox O2 Delivery O2 Flow Rate FiO2 05/23/20 08:06 106 187/89 05/23/20 08:00 Nasal Cannula 3.0 05/23/20 07:32 92 05/23/20 07:00 98.3 20 98.3 Intake and Output 05/23/20 07:00 Intake Total 500 ml Output Total 5075 ml Balance -4575 ml Intake Oral 0 ml IV Total 500 ml Output Urine Total 4275 ml Stool Total 800 ml # Voids 2 Physical Exam Abdomen: Normal bowel sounds Heart: Regular rate Extremities: No cyanosis, No edema General: Alert, Cooperative HEENT: PERRLA, Mucous membr. moist/pink Lungs: Other (Decreased breath sounds) MUSCULOSKELETAL: No joint tenderness Neuro: Normal speech Psych/Mental Status: Mental status NL, Mood NL Skin: No rashes Assessment Assessment 1. Acute respiratory failure with a/c CHF, AECOPD, and CAD, s/p extubation, doing well. Pulmonary team following. 2. Acute on chronic combined diastolic/systolic CHF, clinically better compens ated. Continue current medical regimen. 3. Abdominal pain; CT without acute findings 4. NSTEMI: 3VD. POD#1 S/P PCI/SEAN to ostial LAD and distal left main with PTCA to proximal LAD ISR. Patient failed swallow study. Dobbhoff tube placed yesterday and prasugrel resumed. 5. Ischemic cardiomyopathy; Echo showed LVEF 45-50% 6. DM with DKA: Per IM 8. HTN: labile, we will titrate oral medications once able to take p.o. 9. Hyperlipidemia; statin therapy 10. AVIVA on CKD; improved Comment Review of Relevant I have reviewed the following items danisha (where applicable) has been applied. Labs Laboratory Tests Test 05/22/20 18:34 05/22/20 23:32 05/23/20 06:27 05/23/20 06:30 Glucose (Fingerstick) 301 mg/dL (70-99) 241 mg/dL (70-99) 271 mg/dL (70-99) Sodium Level 140 mmol/L (136-145) Potassium Level 3.6 mmol/L (3.5-5.1) Chloride Level 100 mmol/L (98-107) Carbon Dioxide Level 27 mmol/L (21-32) Anion Gap 13 (6-14) Blood Urea Nitrogen 33 mg/dL (7-20) Creatinine 1.2 mg/dL (0.6-1.0) Estimated GFR (Cockcroft-Gault) 43.9 Glucose Level 268 mg/dL (70-99) Calcium Level 9.1 mg/dL (8.5-10.1) Phosphorus Level 4.3 mg/dL (2.6-4.7) Magnesium Level 1.8 mg/dL (1.8-2.4) Microbiology 05/15/20 Blood Culture - Final, Complete NO GROWTH AFTER 5 DAYS Medications Current Medications Furosemide (Lasix) 60 mg 1X ONCE IVP Last administered on 05/22/20at 16:23; Start 05/22/20 at 15:30; Stop 05/22/20 at 15:31; Status DC Magnesium Sulfate 50 ml @ 25 mls/hr 1X ONCE IV Last administered on 05/22/20at 16:22; Start 05/22/20 at 15:30; Stop 05/22/20 at 17:29; Status DC Phenol (Chloraseptic) 1 spray PRN Q2HR PRN PO SORE THROAT; Start 05/23/20 at 10:15 Potassium Phosphate 13.6 mmol/Sodium Chloride 254.5333 ml @ 127.... Q2H IV Last administered on 05/22/20at 19:12; Start 05/22/20 at 16:00; Stop 05/22/20 at 19:59; Status DC Potassium Chloride (Klor-Con) 20 meq 1X ONCE PO Last administered on 05/22/20at 17:17; Start 05/22/20 at 15:30; Stop 05/22/20 at 15:31; Status DC Vitals/I & O Vital Sign - Last 24 Hours 05/22/20 05/22/20 05/22/20 05/22/20 11:00 12:00 13:00 13:25 Pulse 100 94 88 103 Resp 19 22 25 B/P (MAP) 172/97 (122) 173/104 (127) 185/104 (131) 185/104 Pulse Ox 97 97 97 O2 Delivery Nasal Cannula Nasal Cannula Nasal Cannula O2 Flow Rate 4.0 4.0 4.0 05/22/20 05/22/20 05/22/20 05/22/20 14:00 15:00 15:22 17:17 Pulse 86 96 96 Resp 20 18 B/P (MAP) 192/90 (124) 206/92 (130) 206/92 Pulse Ox 97 97 97 O2 Delivery Nasal Cannula Nasal Cannula Nasal Cannula O2 Flow Rate 4.0 4.0 4.0 05/22/20 05/22/20 05/22/20 05/22/20 18:25 19:43 20:43 20:45 Temp 97.6 97.6 Pulse 96 96 Resp 18 B/P (MAP) 158/112 (127) 158/112 Pulse Ox 93 94 O2 Delivery Nasal Cannula Nasal Cannula Nasal Cannula O2 Flow Rate 2.0 2.0 2.0 05/22/20 05/22/20 05/23/20 05/23/20 20:45 23:40 03:10 07:00 Temp 99.6 98.3 98.3 99.6 98.3 98.3 Pulse 94 106 105 Resp 25 24 20 B/P (MAP) 177/91 (119) 193/98 (129) 187/89 (121) Pulse Ox 94 93 92 93 O2 Delivery Nasal Cannula Nasal Cannula Nasal Cannula Nasal Cannula O2 Flow Rate 2.0 2.0 2.0 3.0 05/23/20 05/23/20 05/23/20 07:32 08:00 08:06 Pulse 106 B/P (MAP) 187/89 Pulse Ox 92 O2 Delivery Nasal Cannula Nasal Cannula O2 Flow Rate 3.0 3.0 Intake and Output 05/22/20 05/22/20 05/23/20 15:00 23:00 07:00 Intake Total 400 ml 100 ml 0 ml Output Total 3825 ml 1250 ml Balance 400 ml -3725 ml -1250 ml ELIZABETH SNYDER MD May 23, 2020 10:39
--- NOTE | 2020-05-23 11:17 | PDOC ---
[employer] PROGRESS NOTE Date of Service DOS: DATE: 05/23/20 TIME: 10:59 Chief Complaint Chief Complaint sepsis, severe sepsis, shock Acute hypoxemic respiratory failure, on COPD and ARIANNA currently on BiPAP, intubated. Extubated 05/20/2020 Severe triple-vessel disease status post LAD stent. Patient poor prognosis and poor surgical candidate date for CABG COVID risk, pt initial swab is negative acute acidosis on CKD 4, renal failure, DKA, acute acidosis with hyperosmolar syndrome, weaned off of insulin drip troponinemia, NSTEMI 2, demand, obese, BMI 39, some pickwickian habitus constipation, on chronic abdominal hernia, with abdominal pain History of Present Illness History of Present Illness 05/23/2020 No acute events overnight. Patient had NG tube Dobbhoff placed yesterday for failing speech swallow. Will start trickle feeds. Patient's chart, labs, images were reviewed and discussed with RN 05/22/2020 No acute events overnight. Saturating 92% on 4 L nasal cannula. Patient remains chest pain-free. Hypokalemia today at 3.0, needing IV potassium replacement. Pending speech evaluation. Patient's chart, labs, images were reviewed and discussed with RN 05/21/20 No acute events overnight. Patient currently tolerating on Venturi mask for 12 L saturating 98%. Potassium 2.1 will replace with IV potassium as needed. Patient is conversing well and pending speech evaluation to advance diet as tolerated. Patient's chart, labs, images were reviewed and discussed with RN 05/20/2020 No acute events overnight. Patient currently on minimal vent settings. We will remove femoral sheath today after holding heparin drip. Plan for extubation today. DC IV fluids. Patient's chart, labs, images were reviewed and discussed with RN 05/19/2020 No acute events overnight. Status post left heart cath. Still sedated and intubated. Vent settings 14/450/35 %/5. ABG: pH 7.4, PCO2 38, PO2 is 97, HCO3 23. Patient's chart, labs, images were reviewed and discussed with RN 05/18/2020 No acute events overnight. T-max of 99.8. Patient was intubated yesterday current ventilator settings of 18/500/80%/6. Potassium 2.9 today replace with 100 mEq of IV potassium. pH 7.51, PCO2 31, PO2 260, HCO3 24. Patient's chart, labs, images were reviewed and discussed with RN 05/17/2020 No acute events overnight. Patient remains afebrile. Tolerating BiPAP for now and saturating 100%.> 50% time spent in patient chart, labs, and imaging review and in discussion with RN and MARTIN 74 year old female admit for chest pain last night, pain started acutely while walking her dog, mid chest pain with tightness. she came by ambulance, and was newly hypoxic to mid 80's in the ER. she has a Hx CAD and stents, CV team called for EKG change, Dr. Joshua saw the pt in the ER, admit to ICU, broad spectrum abx given, CT angio done for pain, showed large amt of stool, no clear PNA Vitals/I&O Vitals/I&O: Vital Signs Date Time Temp Pulse Resp B/P (MAP) Pulse Ox O2 Delivery O2 Flow Rate FiO2 05/23/20 08:06 106 187/89 05/23/20 08:00 Nasal Cannula 3.0 05/23/20 07:32 92 05/23/20 07:00 98.3 20 98.3 I & O 05/22/20 05/22/20 05/23/20 15:00 23:00 07:00 Intake Total 400 ml 100 ml 0 ml Output Total 3825 ml 1250 ml Balance 400 ml -3725 ml -1250 ml Physical Exam Physical Exam: GENERAL: awake on 3 lit, coop and looks comfortable HEENT: Both pupils are round and reacting. No conjunctival lesion. No lesion in the mouth. NECK: Supple. No JVP. No lymphadenopathy. LUNGS: Clear. HEART: S1, S2 regular. ABDOMEN: Benign. Dobhoff : nicole EXTREMITIES: No edema or cyanosis. SKIN: Unremarkable. NEUROLOGIC: Alert and coop IV: clean IJ General: Alert, Cooperative Heart: Regular rate Lungs: Clear Abdomen: Normal bowel sounds Extremities: No cyanosis, No edema Skin: No rashes Labs Labs: Laboratory Tests Test 05/22/20 18:34 05/22/20 23:32 05/23/20 06:27 05/23/20 06:30 Glucose (Fingerstick) 301 mg/dL (70-99) 241 mg/dL (70-99) 271 mg/dL (70-99) Sodium Level 140 mmol/L (136-145) Potassium Level 3.6 mmol/L (3.5-5.1) Chloride Level 100 mmol/L (98-107) Carbon Dioxide Level 27 mmol/L (21-32) Anion Gap 13 (6-14) Blood Urea Nitrogen 33 mg/dL (7-20) Creatinine 1.2 mg/dL (0.6-1.0) Estimated GFR (Cockcroft-Gault) 43.9 Glucose Level 268 mg/dL (70-99) Calcium Level 9.1 mg/dL (8.5-10.1) Phosphorus Level 4.3 mg/dL (2.6-4.7) Magnesium Level 1.8 mg/dL (1.8-2.4) Comment Review of Relevant I have reviewed the following items danisha (where applicable) has been applied. Medications: Current Medications Medications (Trade) Dose Ordered Sig/Morgan Route PRN Reason Start Time Stop Time Status Last Admin Dose Admin Potassium Chloride (Klor-Con) 20 meq 1X ONCE PO 05/22/20 15:30 05/22/20 15:31 DC 05/22/20 17:17 Potassium Phosphate 13.6 mmol/Sodium Chloride 254.5333 ml @ 127.... Q2H IV 05/22/20 16:00 05/22/20 19:59 DC 05/22/20 19:12 Magnesium Sulfate 50 ml @ 25 mls/hr 1X ONCE IV 05/22/20 15:30 05/22/20 17:29 DC 05/22/20 16:22 Furosemide (Lasix) 60 mg 1X ONCE IVP 05/22/20 15:30 05/22/20 15:31 DC 05/22/20 16:23 Justifications for Admission Other Justification RANJITH PACHECO MD May 23, 2020 11:16
[2020-05-23] MEDS: LABETALOL 20 MG/4 ML DISP.SYRIN. IVP PRN ×2 (11:39→23:28)
[2020-05-23] MEDS: fentaNYL PF VIAL 100 MCG/2 ML VIAL IVP PRN ×3 (11:41→20:48)
--- NOTE | 2020-05-23 14:40 | PDOC ---
Renal-Progress Notes Subjective Notes Notes TIRED, NOT MUCH SOB History of Present Illness Hx of present illness IMPROVED Vitals Vitals Vital Signs Date Time Temp Pulse Resp B/P (MAP) Pulse Ox O2 Delivery O2 Flow Rate FiO2 05/23/20 12:40 87 166/93 (117) 05/23/20 12:11 20 97 Nasal Cannula 3.0 05/23/20 11:00 97.8 97.8 Weight Weight [ ] I.O. Intake and Output Intake and Output 05/23/20 07:00 Intake Total 500 ml Output Total 5075 ml Balance -4575 ml Intake Oral 0 ml IV Total 500 ml Output Urine Total 4275 ml Stool Total 800 ml # Voids 2 Labs Labs Laboratory Tests Test 05/22/20 18:34 05/22/20 23:32 05/23/20 06:27 05/23/20 06:30 Glucose (Fingerstick) 301 mg/dL (70-99) 241 mg/dL (70-99) 271 mg/dL (70-99) Sodium Level 140 mmol/L (136-145) Potassium Level 3.6 mmol/L (3.5-5.1) Chloride Level 100 mmol/L (98-107) Carbon Dioxide Level 27 mmol/L (21-32) Anion Gap 13 (6-14) Blood Urea Nitrogen 33 mg/dL (7-20) Creatinine 1.2 mg/dL (0.6-1.0) Estimated GFR (Cockcroft-Gault) 43.9 Glucose Level 268 mg/dL (70-99) Calcium Level 9.1 mg/dL (8.5-10.1) Phosphorus Level 4.3 mg/dL (2.6-4.7) Magnesium Level 1.8 mg/dL (1.8-2.4) Test 05/23/20 11:46 Glucose (Fingerstick) 288 mg/dL (70-99) Micro Micro Microbiology 05/15/20 Blood Culture - Final, Complete NO GROWTH AFTER 5 DAYS Review of Systems Constitutional: yes: weakness, alert, oriented, other Ears/Nose/Throat: Yes: no symptom reported Eyes: Yes: no symptom reported Pulmonary: Yes dyspnea Cardiovascular: Yes no symptom reported Genitourinary: Yes: no symptom reported Musculoskeletal: Yes: no symptom reported Skin: Yes no symptom reported Psychiatric/Neurological: Yes: no symptom reported Endocrine: Yes: no symptom reported Physical Exam General Appearance: no apparent distress Skin: warm Respiratory: decreased breath sounds Heart: S1S2 Abdomen: soft, bowel sounds present Genitourinary: bladder flat Extremities: pulses present Neurology: alert, oriented, follow commands Assessment Assessment IMP AVIVA-IMPROVING WITH CR OF 1.2 AMI - S/P PTCA AND STENT CKD STAGE 3 WITH CR ABOUT 1.5 HYPOKALEMIA LOW PO4-CORRECTED HYPONATREMIA-BETTER ACUTE RESP FAILURE-EXTUBATED PROBABLE PNEUMONIA PROB HYPERVOLEMIA LEUCOCYTOSIS DM II FAILED SWALLOW STUDY PLAN REPLACE K AND MAG IV LASIX AGAIN TF-NEPRO ANTIBIOTICS WILL FOLLOW ORION ARAYA MD May 23, 2020 14:40
[2020-05-23] MEDS ORDERED: FUROSEMIDE 40 MG/4 ML VIAL. IVP ONE (14:45)
--- NOTE | 2020-05-23 14:57 | NUR ---
IP: Talked with pt nurse, Toshia. Instructed to leave pt out of isolation but begin Nozin and CHG per protocol. Toshia verbalized understanding.
[2020-05-23] MEDS ORDERED: POTASSIUM CHLORIDE 10MEQ 100 ML IV SCH (15:00)
[2020-05-23] MEDS ORDERED: MAGNESIUM SULFATE 2GM 50 ML IV ONE (15:00)
[2020-05-23] MEDS ORDERED: POTASSIUM CHLORIDE 20MEQ 100 ML IV ONE (15:00)
[2020-05-23] MEDS: ATORVASTATIN CALCIUM 40 MG TABLET. PO SCH (20:16)
[2020-05-23] MEDS: carBAMazepine 200 MG TABLET PO SCH (20:17)
[2020-05-23] MEDS: ASA/APAP/CAFFEINE 250/250/65MG TABLET. PO PRN (20:17)
[2020-05-23] MEDS: METOPROLOL IV PUSH 5 MG/5 ML VIAL. IVP PRN (20:49)
[2020-05-23] MEDS: ONDANSETRON PF 4 MG/2 ML VIAL. IVP PRN (21:58)
[2020-05-24 02:32] VITALS: BP 166/80
--- NOTE | 2020-05-24 02:37 | NUR ---
BP was 180/89 with HR 104 while resting in bed. Gave Labetalol IVP as ordered PRN elevated BP. BP now 166/80 with HR 85. 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 Gave Ativan as ordered PRN anxiety.
[2020-05-24] MEDS: PANTOPRAZOLE IV PUSH 40 MG VIAL. IVP SCH (05:41)
[2020-05-24] MEDS: INSULIN LISPRO 300 UNITS/3 ML VIAL. SQ SCH ×4 (05:51→17:35)
[2020-05-24 06:31] LABS: MAGNESIUM 2.2 mg/dL (1.8-2.4); PHOSPHORUS 4.2 mg/dL (2.6-4.7)
[2020-05-24 07:00] VITALS: BP 159/76
[2020-05-24] MEDS: IPRATRPIUM/ALBUTEROL 0.5/2.5MG 3 ML NEBU. NEB SCH ×3 (07:26→20:35)
[2020-05-24] MEDS: BUDESONIDE 0.5 MG/2 ML NEBU. NEB SCH ×2 (07:27→20:35)
[2020-05-24] MEDS: buPROPion XL 150 MG TAB.ER.24H. PO SCH ×2 (08:19→20:12)
[2020-05-24] MEDS: ASPIRIN CHEWABLE 81 MG TABLET. PO SCH (08:19)
[2020-05-24] MEDS: ASCORBIC ACID 500 MG TABLET PO SCH ×2 (08:20→20:11)
[2020-05-24] MEDS: METOPROLOL TART IMMED RELEASE 25 MG TABLET. PO SCH ×2 (08:21→20:11)
[2020-05-24] MEDS: FUROSEMIDE 40 MG/4 ML VIAL. IVP SCH (08:22)
[2020-05-24] MEDS: DOCUSATE SODIUM 100 MG CAPSULE. PO SCH (08:22)
[2020-05-24] MEDS: POLYETHYLENE GLYCOL 3350 17 GM PACKET. PO SCH (08:22)
[2020-05-24] MEDS: PRASUGREL 10 MG TABLET. PO SCH (08:22)
[2020-05-24] MEDS: ARIPiprazole 2 MG TABLET PO SCH (08:22)
[2020-05-24] MEDS: INSULIN GLARGINE SYRINGE. SQ SCH ×2 (08:24→20:13)
--- NOTE | 2020-05-24 09:26 | PDOC ---
DATE OF SERVICE DATE: 05/24/20 TIME: 09:25 SUBJECTIVE ROS c/o mouth feeling dry . failed swallow study on 05/22 OBJECTIVE Vital Signs Vital Signs Date Time Temp Pulse Resp B/P (MAP) Pulse Ox O2 Delivery O2 Flow Rate FiO2 05/24/20 08:21 89 159/76 05/24/20 07:27 97 05/24/20 07:00 97.5 20 Nasal Cannula 2.0 97.5 I & 0 Intake and Output 05/24/20 07:00 Intake Total 360 ml Output Total 1500 ml Balance -1140 ml Intake Oral 0 ml Tube Feeding 160 ml Other 200 ml Output Urine Total 1500 ml PHYSICAL EXAM Physical Exam GENERAL: NAD HEENT: OM dry , On O2by NC , Dobahoff + NECK: Supple. No JVP. LUNGS: Clear. HEART: S1, S2 regular. ABDOMEN: soft, obese : nicole + EXTREMITIES: No edema or cyanosis. SKIN: Unremarkable. NEUROLOGIC: Alert and coop DIAGNOSIS/ASSESSMENT Assessment & Plan AVIVA- Improved, stable Supportive care, avoid nephrotoxins Coronary artery disease with acute myocardial infarction- S/p PTCA CKD Stage 3 - Baseline Cr 1.5, follows with Dr. Shields as OP Respiratory failure- Pulmonary infiltrate, pneumonia versus congestive heart failure.Extubated , on O2 by SD Chronic obstructive pulmonary disease exacerbation. Hypertension. Failed swallow study COMMENT/RELEVANT DATA Meds Current Medications Medications (Trade) Dose Ordered Sig/Morgan Start Time Stop Time Status Last Admin Dose Admin Acetaminophen (Tylenol) 1,000 mg 1X ONCE 05/14/20 22:30 05/14/20 22:39 DC 05/14/20 23:04 1,000 MG Acetaminophen/ Aspirin/Caffeine (Excedrin Migraine) 1 tab PRN Q6HRS PRN 05/15/20 03:00 05/23/20 20:17 1 TAB Albumin Human 100 ml @ 100 mls/hr 1X ONCE 05/19/20 12:00 05/19/20 12:59 DC 05/19/20 11:56 100 MLS/HR Albuterol/ Ipratropium (Duoneb) 3 ml TID 05/16/20 14:00 05/24/20 07:26 3 ML Aripiprazole (Abilify) 2 mg DAILY 05/16/20 11:00 05/24/20 08:22 2 MG Ascorbic Acid (Vitamin C) 500 mg BID 05/16/20 10:15 05/24/20 08:20 500 MG Aspirin (Aspirin Chewable) 81 mg DAILYWBKFT 05/19/20 08:00 05/24/20 08:19 81 MG Aspirin (Ecotrin) 81 mg DAILY 05/16/20 10:00 05/19/20 07:46 DC 05/18/20 09:58 81 MG Atorvastatin Calcium (Lipitor) 80 mg QHS 05/16/20 21:00 05/23/20 20:16 80 MG Atropine Sulfate (ATROPINE 0.5mg SYRINGE) 0.5 mg PRN Q5MIN PRN 05/17/20 09:45 05/21/20 06:38 DC Budesonide (Pulmicort) 0.5 mg 1X ONCE 05/15/20 14:30 05/15/20 14:54 DC 05/15/20 15:48 0.5 MG Bupropion HCl (Wellbutrin Xl) 150 mg BID 05/16/20 10:14 05/24/20 08:19 150 MG Carbamazepine (TEGretol) 200 mg QHS 05/16/20 21:00 05/23/20 20:17 200 MG Chlorhexidine Gluconate (Peridex) 15 ml BID 05/17/20 21:00 05/19/20 07:45 DC 05/18/20 21:35 15 ML Dexmedetomidine HCl 400 mcg/ Sodium Chloride 100 ml @ 0 mls/hr CONT PRN 05/17/20 09:45 05/21/20 06:38 DC 05/17/20 14:16 16.6 MLS/HR Dextrose (Dextrose 50%-Water Syringe) 12.5 gm PRN Q15MIN PRN 05/15/20 07:30 Docusate Sodium (Colace) 100 mg DAILY 05/15/20 09:00 05/17/20 08:50 100 MG Dopamine HCl/ Dextrose 250 ml @ 13.538 mls/ hr CONT PRN 05/14/20 23:00 05/21/20 06:38 DC 05/15/20 20:57 27.075 MLS/HR Etomidate (Amidate) 20 mg 1X ONCE 05/17/20 17:45 05/17/20 17:46 DC 05/17/20 17:42 20 MG Fentanyl Citrate 30 ml @ 0 mls/hr CONT PRN 05/17/20 17:00 05/21/20 06:38 DC 05/20/20 00:52 2.5 MLS/HR Fentanyl Citrate (Fentanyl 2ml Vial) 50 mcg PRN Q3HRS PRN 05/15/20 03:00 05/23/20 20:48 50 MCG Furosemide (Lasix) 40 mg 1X ONCE 05/23/20 14:45 05/23/20 14:46 DC 05/23/20 15:12 40 MG Heparin Sodium (Porcine) (Heparin Sodium) 2,000 unit PRN Q6HRS PRN 05/18/20 12:15 05/20/20 07:37 DC Heparin Sodium/ Dextrose 250 ml @ 0 mls/hr CONT PRN 05/18/20 12:15 05/19/20 14:49 DC 05/18/20 12:19 9.6 MLS/HR Heparin Sodium/ Sodium Chloride (HEPARIN for ARTERIAL LINE FLUSH) 1,000 unit 1X ONCE 05/18/20 12:15 05/18/20 12:18 DC 05/18/20 12:15 1,000 UNIT Hydrocortisone Sodium Succinate (Solu-CORTEF) 50 mg Q8HRS 05/20/20 14:00 05/21/20 06:43 DC 05/21/20 06:20 50 MG Info (Anti-Coagulation Monitoring By Pharmacy) 1 each PRN DAILY PRN 05/15/20 08:00 05/20/20 07:40 DC 05/19/20 07:42 1 EACH Info (CONTRAST GIVEN -- Rx MONITORING) 1 each PRN DAILY PRN 05/14/20 20:15 05/16/20 20:14 DC Info (Icu Electrolyte Protocol) 1 ea CONT PRN PRN 05/21/20 07:30 Insulin Glargine (Lantus Syringe) 10 unit BID 05/20/20 09:00 05/24/20 08:24 10 UNIT Insulin Human Lispro (HumaLOG) 5 units 1X ONCE 05/20/20 00:30 05/20/20 00:31 DC 05/20/20 00:07 5 UNITS Insulin Human Regular 100 unit/ Sodium Chloride 101 ml @ 0 mls/hr CONT PRN 05/15/20 08:30 05/19/20 14:49 DC 05/15/20 21:18 13.029 MLS/HR Iodixanol (Visipaque 320) 100 ml 1X ONCE 05/18/20 12:15 05/18/20 12:18 DC Iohexol (Omnipaque 350 Mg/ml) 100 ml 1X ONCE 05/14/20 20:00 05/14/20 20:01 DC 05/14/20 20:03 100 ML Labetalol HCl (Normodyne Iv Push) 20 mg PRN Q2HR PRN 05/21/20 09:30 05/23/20 23:28 20 MG Lidocaine HCl (Lidocaine 1% 20ml Vial) 20 ml 1X ONCE 05/18/20 12:15 05/18/20 12:18 DC Lidocaine HCl (Xylocaine-Mpf 1% 2ml Vial) 2 ml STK-MED ONCE 05/18/20 10:07 05/18/20 10:08 DC Linezolid/Dextrose 300 ml @ 300 mls/hr Q12HR 05/17/20 09:00 05/20/20 08:02 DC 05/19/20 21:01 300 MLS/HR Lorazepam (Ativan Inj) 0.25 mg PRN Q6HRS PRN 05/21/20 16:30 05/23/20 23:50 0.25 MG Lorazepam (Ativan) 0.5 mg PRN Q8HRS PRN 05/16/20 10:00 05/21/20 06:38 DC 05/17/20 08:50 0.5 MG Magnesium Sulfate 50 ml @ 25 mls/hr 1X ONCE 05/23/20 15:00 05/23/20 16:59 DC 05/23/20 15:13 25 MLS/HR Metoprolol Succinate (Toprol Xl) 12.5 mg DAILY 05/16/20 10:15 05/19/20 09:40 DC 05/17/20 08:51 12.5 MG Metoprolol Tartrate (Lopressor Vial) 5 mg PRN Q8HRS PRN 05/21/20 19:45 05/23/20 20:49 5 MG Metoprolol Tartrate (Lopressor) 12.5 mg 1X ONCE 05/19/20 10:30 05/19/20 10:31 DC 05/19/20 10:34 12.5 MG Midazolam HCl 100 ml @ 0 mls/hr CONT PRN 05/17/20 17:00 05/21/20 06:38 DC 05/19/20 15:40 2 MLS/HR Midazolam HCl (Versed) 2 mg STK-MED ONCE 05/14/20 18:16 05/14/20 18:16 DC Nitroglycerin (Nitroglycerin) 200 mcg 1X ONCE 05/18/20 12:15 05/18/20 12:18 DC 05/18/20 12:15 200 MCG Norepinephrine Bitartrate 32 mg/ Dextrose 282 ml @ 3.818 mls/ hr CONT PRN 05/15/20 15:00 05/21/20 06:38 DC 05/17/20 13:35 3.818 MLS/HR Norepinephrine Bitartrate 8 mg/ Dextrose 258 ml @ 13.971 mls/ hr CONT PRN 05/14/20 23:00 05/15/20 14:59 DC 05/15/20 11:02 82.427 MLS/HR Ondansetron HCl (Zofran) 4 mg PRN Q8HRS PRN 05/16/20 03:15 05/23/20 21:58 4 MG Pantoprazole Sodium (PROTONIX VIAL for IV PUSH) 40 mg DAILYAC 05/17/20 07:30 05/24/20 05:41 40 MG Phenol (Chloraseptic) 1 spray PRN Q2HR PRN 05/23/20 10:15 05/23/20 22:59 1 SPRAY Piperacillin Sod/ Tazobactam Sod (Zosyn Per Pharmacy) 1 each PRN DAILY PRN 05/15/20 08:30 05/22/20 07:19 DC Piperacillin Sod/ Tazobactam Sod 2.25 gm/Sodium Chloride 50 ml @ 100 mls/hr Q6HRS 05/16/20 18:00 05/22/20 07:19 DC 05/22/20 05:16 100 MLS/HR Piperacillin Sod/ Tazobactam Sod 3.375 gm/Sodium Chloride 50 ml @ 100 mls/hr 1X ONCE 05/14/20 19:15 05/14/20 19:44 UNV Polyethylene Glycol (miraLAX PACKET) 17 gm PRN DAILY PRN 05/15/20 08:30 05/15/20 13:43 17 GM Potassium Bicarbonate (Potassium Effervescent Tablet) 40 meq 1X ONCE 05/20/20 07:15 05/20/20 07:16 DC 05/20/20 08:02 40 MEQ Potassium Chloride/Water 100 ml @ 100 mls/hr 1X ONCE 05/23/20 15:00 05/23/20 15:59 DC 05/23/20 15:12 100 MLS/HR Potassium Phosphate 13.6 mmol/Sodium Chloride 254.5333 ml @ 127.... Q2H 05/22/20 16:00 05/22/20 19:59 DC 05/22/20 19:12 127.267 MLS/HR Potassium Chloride (Klor-Con) 20 meq 1X ONCE 05/22/20 15:30 05/22/20 15:31 DC 05/22/20 17:17 20 MEQ Prasugrel (Effient) 30 mg 1X ONCE 05/18/20 12:15 05/18/20 12:18 DC 05/18/20 12:15 30 MG Propofol 100 ml @ 2.52 mls/hr CONT PRN 05/19/20 15:45 05/21/20 06:38 DC 05/20/20 09:19 10.08 MLS/HR Ringer's Solution 1,000 ml @ 100 mls/hr Q10H 05/16/20 14:45 05/17/20 10:47 DC 05/17/20 00:00 100 MLS/HR Sodium Bicarbonate 150 meq/Sterile Water 1,150 ml @ 125 mls/hr Q9H12M 05/15/20 09:00 05/16/20 09:07 DC 05/16/20 03:20 125 MLS/HR Sodium Monofluorophosphate (Fleet Adult) 133 ml DAILY PRN 05/15/20 13:45 05/16/20 13:24 133 ML Sodium Bicarbonate (Sodium Bicarb Adult 8.4% Syr) 50 meq 1X ONCE 05/17/20 19:15 05/17/20 19:16 DC 05/17/20 19:23 50 MEQ Sodium Chloride 1,000 ml @ 100 mls/hr Q10H 05/17/20 11:00 05/19/20 13:31 DC 05/18/20 16:55 100 MLS/HR Succinylcholine Chloride (Anectine) 200 mg 1X ONCE 05/17/20 17:45 05/17/20 17:46 DC 05/17/20 17:42 200 MG Vancomycin HCl (Vanco Per Pharmacy) 1 each PRN DAILY PRN 05/15/20 08:30 05/17/20 08:51 DC 05/17/20 07:35 1 EACH Vancomycin HCl (Vancomycin Random Level) 1 each 1X ONCE 05/16/20 11:06 05/16/20 11:07 DC 05/16/20 11:06 1 EACH Vancomycin HCl (Vancomycin Trough Level) 1 each 1X ONCE 05/18/20 13:30 05/17/20 08:54 DC Vancomycin HCl 1.25 gm/Sodium Chloride 250 ml @ 167 mls/hr Q24H 05/16/20 14:00 05/17/20 08:51 DC 05/16/20 14:05 167 MLS/HR Vasopressin 20 unit/Dextrose 101 ml @ 12 mls/hr CONT PRN 05/14/20 23:00 05/21/20 06:38 DC 05/16/20 19:48 12 MLS/HR Verapamil HCl (Verapamil) 5 mg STK-MED ONCE 05/18/20 11:00 05/19/20 11:04 DC Lab Laboratory Tests Test 05/23/20 11:46 05/23/20 17:46 05/23/20 20:27 05/23/20 23:18 Glucose (Fingerstick) 288 mg/dL (70-99) 270 mg/dL (70-99) 233 mg/dL (70-99) 267 mg/dL (70-99) Test 05/24/20 05:37 05/24/20 05:45 Glucose (Fingerstick) 281 mg/dL (70-99) Phosphorus Level 4.2 mg/dL (2.6-4.7) Magnesium Level 2.2 mg/dL (1.8-2.4) Results All relevant outside records, renal labs, imaging studies, telemetry/EKG's were reviewed. Justicifation of Admission Dx: Justifications for Admission: Justification of Admission Dx: N/A HUA BENITEZ MD May 24, 2020 09:26
--- NOTE | 2020-05-24 09:56 | PDOC ---
PULMONARY PROGRESS NOTES DATE: 05/24/20 TIME: 09:52 Subjective Extubated on 05/20, now on 4 liters N/C Status post cardiac cath on 05/18 with PCI No overnight concerns from nursing Vitals Vital Signs Date Time Temp Pulse Resp B/P (MAP) Pulse Ox O2 Delivery O2 Flow Rate FiO2 05/24/20 08:21 89 159/76 05/24/20 08:00 Nasal Cannula 3.0 05/24/20 07:27 97 05/24/20 07:00 97.5 20 97.5 ROS: No Nausea, No Chest Pain, No Abdominal Pain, No Increase Cough General: Alert, Oriented X4 Lungs: Clear Cardiovascular: S1, S2 Abdomen: Soft, Other Extremities: Other (trace edema) Skin: Warm Labs Laboratory Tests Test 05/22/20 18:34 05/22/20 23:32 05/23/20 06:27 05/23/20 06:30 Glucose (Fingerstick) 301 mg/dL (70-99) 241 mg/dL (70-99) 271 mg/dL (70-99) Sodium Level 140 mmol/L (136-145) Potassium Level 3.6 mmol/L (3.5-5.1) Chloride Level 100 mmol/L (98-107) Carbon Dioxide Level 27 mmol/L (21-32) Anion Gap 13 (6-14) Blood Urea Nitrogen 33 mg/dL (7-20) Creatinine 1.2 mg/dL (0.6-1.0) Estimated GFR (Cockcroft-Gault) 43.9 Glucose Level 268 mg/dL (70-99) Calcium Level 9.1 mg/dL (8.5-10.1) Phosphorus Level 4.3 mg/dL (2.6-4.7) Magnesium Level 1.8 mg/dL (1.8-2.4) Test 05/23/20 11:46 05/23/20 17:46 05/23/20 20:27 05/23/20 23:18 Glucose (Fingerstick) 288 mg/dL (70-99) 270 mg/dL (70-99) 233 mg/dL (70-99) 267 mg/dL (70-99) Test 05/24/20 05:37 05/24/20 05:45 Glucose (Fingerstick) 281 mg/dL (70-99) Phosphorus Level 4.2 mg/dL (2.6-4.7) Magnesium Level 2.2 mg/dL (1.8-2.4) Laboratory Tests Test 05/23/20 11:46 05/23/20 17:46 05/23/20 20:27 05/23/20 23:18 Glucose (Fingerstick) 288 mg/dL (70-99) 270 mg/dL (70-99) 233 mg/dL (70-99) 267 mg/dL (70-99) Test 05/24/20 05:37 05/24/20 05:45 Glucose (Fingerstick) 281 mg/dL (70-99) Phosphorus Level 4.2 mg/dL (2.6-4.7) Magnesium Level 2.2 mg/dL (1.8-2.4) Medications Active Scripts Medications Dose Route/Sig Max Daily Dose Days Date Category Effient (Prasugrel Hcl) 10 Mg Tablet 10 Mg PO [id number] 30 06/10/19 Rx Furosemide 20 Mg Tablet 1 Tab PO DAILY 04/24/19 Reported Bupropion Xl (Bupropion Hcl) 150 Mg Tab.er.24h 150 Mg PO BID 04/24/19 Reported Tramadol Hcl 50 Mg Tablet 50 Mg PO Q4HRS PRN 04/24/19 Reported Cyclobenzaprine Hcl 5 Mg Tablet 5 Mg PO TID PRN 04/24/19 Reported Montelukast Sodium Tablet (Montelukast Sodium) 10 Mg Tablet 10 Mg PO HS 04/24/19 Reported Spironolactone 25 Mg Tablet 1 Tab PO DAILY 04/24/19 Reported Ranitidine Hcl 150 Mg Capsule 150 Mg PO DAILY 04/24/19 Reported Naproxen 500 Mg Tablet 1 Tab PO BID 30 04/24/19 Reported Atorvastatin Calcium 40 Mg Tablet 80 Mg PO QHS 12/02/18 Rx Abilify (Aripiprazole) 2 Mg Tablet 2 Mg PO DAILY 11/30/18 Reported Buspirone Hcl 15 Mg Tablet 15 Mg PO TID 11/30/18 Reported Tegretol (Carbamazepine) 200 Mg Tablet 200 Mg PO QHS 11/08/18 Reported Metoprolol Succinate ( Xl ) (Metoprolol Succinate) 25 Mg Tab.er.24h 12.5 Mg PO DAILY 11/08/18 Reported Klonopin (Clonazepam) 0.5 Mg Tablet 0.5 Mg PO PRN BID PRN 01/08/18 Reported Fish Oil 1,000 Mg Capsule ([place]-3 Fatty Acids/Fish Oil) 1 Each Capsule 1 Each PO TID 01/08/18 Reported Cymbalta (Duloxetine Hcl) 60 Mg Capsule.dr 120 Mg PO DAILY 01/08/18 Reported Loperamide (Loperamide Hcl) 2 Mg Capsule 2 Mg PO 01/04/18 Reported Zyrtec (Cetirizine Hcl) 10 Mg Tablet 1 Tab PO DAILY 01/04/18 Reported Zonisamide 100 Mg Capsule 100 Mg PO TID 12/14/17 Reported Protonix (Pantoprazole Sodium) 20 Mg Tablet.dr 40 Mg PO DAILY 12/14/17 Reported Nortriptyline Hcl 25 Mg Capsule 50 Mg PO HS 12/14/17 Reported Duoneb 0.5-3(2.5) Mg/3 Ml (Albuterol/Ipratropium) 3 Ml Ampul.neb 3 Ml NEB TID 12/14/17 Reported Multivitamins (Multivitamin) 1 Each Tablet 1 Tab PO DAILY 06/25/17 Reported Mirtazapine 15 Mg Tablet 30 Mg PO QHS 06/25/17 Reported Lisinopril 5 Mg Tablet 1 Tab PO DAILY 06/25/17 Reported Vitamin B-12 (Cyanocobalamin (Vitamin B-12)) 1,000 Mcg Tablet 1 Tab PO DAILY 06/25/17 Reported Vitamin D (Cholecalciferol (Vitamin D3)) 1,000 Unit Capsule 1 Cap PO DAILY 06/25/17 Reported Ascorbic Acid 500 Mg Tablet 500 Mg PO BID 06/25/17 Reported Voltaren (Diclofenac Sodium) 100 Gm Gel..gram. 100 Gm TP QID 02/02/15 Reported Levemir Flextouch (Insulin Detemir) 100 Unit/1 Ml Insuln.pen 36 Unit SQ BID 02/02/15 Reported Flonase Allergy Relief (Fluticasone Propionate) 9.9 Ml [place].susp 2 Spr NS DAILY 02/01/15 Reported Aspir 81 (Aspirin) 81 Mg Tablet.dr 81 Mg PO DAILY 09/03/13 Reported Ropinirole Hcl 1 Mg Tablet 1 Mg PO QHS 09/03/13 Reported Novolog (Insulin Aspart) 100 Unit/1 Ml Cartridge 6 Unit SQ TIDAC 09/03/13 Reported Comments CXR IMPRESSION: Persistent bibasilar opacities without significant interval change. Impression . 1. Acute hypoxemic respiratory failure, multifactorial in etiology including shock, myocardial infarction, chronic obstructive pulmonary disease with acute exacerbation, no pulmonary embolism-----now extubated on N/C 2. Abnormal CT of the chest./basal atelectasis 3. Elevated troponin, non-ST elevation myocardial infarction--NSTEMI: 3VD. POD#1 S/P PCI/SEAN to ostial LAD and distal left main with PTCA to proximal LAD ISR. Patient has swallow study scheduled today. 5. Ischemic cardiomyopathy; Echo showed LVEF 45-50% 4. Shock ,cardiac--- resolved 5. Acute kidney injury--improved 6. Chronic kidney disease-- stable 7. Chest pain. 8. Chronic obstructive pulmonary disease with acute exacerbation. 9. Obesity, obstructive sleep apnea-hypopnea syndrome. Cardiac cath Conclusion 1. Acute on chronic systolic and diastolic heart failure, LVEDP 18 mmHg 2. Severe three-vessel coronary artery disease with culprit lesion involving the LAD 3. Successful balloon angioplasty of the proximal LAD in-stent restenosis with a 2.0 x 12 mm balloon 4. Successful PCI of the ostial LAD and distal left main with implantation of a 3.5 x 12 mm Xience Cinda SEAN. Recommendations 1. Aspirin 81 mg daily 2. Prasugrel 10 mg daily 3. Continuation of heparin drip for the next 24 hours 4. Overall, the patient has severe coronary artery disease and given her other comorbidities she has an overall poor prognosis but continue inotropic support at this time and we will try to wean from the ventilator over the next 48 hours after diuresis and stabilization of renal function and pulmonary status. Plan . PLAN: Continue current supplemental oxygen support, currently on 4 liters N/C, baseline oxygen requirement is 2 liters N/C NEBS, including Pulmicort CXR reviewed Follow ID recs in regards to ABX -- currently off ABX Follow cultures--- no growth to date Follow cardiology recs--status post PCI on 05/18/2020 to the LAD, hypertension and diruesis per cardiology Follow nephrology recs-- monitor renal function HTN per PCP and Hyperglycemia Physical therapy/Occupational Therapy/speech therapy-- Failed Swallow study, now has dobphoff DVT/GI PPX D/W RN and RT CONRADO FAGAN MD May 24, 2020 09:56
--- NOTE | 2020-05-24 10:04 | PDOC ---
Infectious Disease Note Subjective Subjective Better this am. Occ cough No F/C/N/V/SOA Vital Sign Vital Signs Vital Signs Date Time Temp Pulse Resp B/P (MAP) Pulse Ox O2 Delivery O2 Flow Rate FiO2 05/24/20 08:21 89 159/76 05/24/20 08:00 Nasal Cannula 3.0 05/24/20 07:27 97 05/24/20 07:00 97.5 20 97.5 Physical Exam PHYSICAL EXAM GENERAL: awake on 3 lit, coop and looks comfortable HEENT: Both pupils are round and reacting. No conjunctival lesion. No lesion in the mouth. NECK: Supple. No JVP. No lymphadenopathy. LUNGS: Clear. HEART: S1, S2 regular. ABDOMEN: Benign. Dobhoff : nicole EXTREMITIES: No edema or cyanosis. SKIN: Unremarkable. NEUROLOGIC: Alert and coop IV: clean IJ Labs Lab Laboratory Tests Test 05/23/20 11:46 05/23/20 17:46 05/23/20 20:27 05/23/20 23:18 Glucose (Fingerstick) 288 mg/dL (70-99) 270 mg/dL (70-99) 233 mg/dL (70-99) 267 mg/dL (70-99) Test 05/24/20 05:37 05/24/20 05:45 Glucose (Fingerstick) 281 mg/dL (70-99) Phosphorus Level 4.2 mg/dL (2.6-4.7) Magnesium Level 2.2 mg/dL (1.8-2.4) Micro Microbiology 05/15/20 Blood Culture - Preliminary, Resulted NO GROWTH AFTER 1 DAY Objective Assessment IMPRESSION: 1. Respiratory failure. 2. Coronary artery disease with acute myocardial infarction. 3. Pulmonary infiltrate, pneumonia versus congestive heart failure. 4. Chronic obstructive pulmonary disease exacerbation. 5. Acute kidney injury. 6. Hypertension. 7. Leukocytosis. 8 CAD s/p angioplasty Plan Plan of Care cont supportive care D/w nursing MASSIMO MIRELES MD May 24, 2020 10:04
[2020-05-24] MEDS ORDERED: [UNRECOGNIZED DRUG - OTHER] SQ SCH (10:45)
[2020-05-24 10:46] LABS: CALCIUM 8.7 mg/dL (8.5-10.1); CREATININE 1.2 mg/dL (0.6-1.0); GFR 43.9; POTASSIUM 3.2 mmol/L (3.5-5.1)
[2020-05-24 11:00] VITALS: BP 166/97
--- NOTE | 2020-05-24 11:21 | PDOC ---
MARLEEN MCGREGOR ENVIRONMENTAL PROTECTION GEOLOGIST 05/24/20 1121: CARDIO Progress Notes Date and Time Date of Service 05/24/20 Time of Evaluation 1120 Subjective Subjective: No Chest Pain, No shortness of breath, No Palpitations, Other (c/o dry mouth and nauesa) Vitals Vitals Vital Signs Date Time Temp Pulse Resp B/P (MAP) Pulse Ox O2 Delivery O2 Flow Rate FiO2 05/24/20 08:21 89 159/76 05/24/20 08:00 Nasal Cannula 3.0 05/24/20 07:27 97 05/24/20 07:00 97.5 20 97.5 Weight Weight [ ] Input and Output Intake and Output Intake and Output 05/24/20 06:59 Intake Total 360 ml Output Total 1500 ml Balance -1140 ml Intake Oral 0 ml Tube Feeding 160 ml Other 200 ml Output Urine Total 1500 ml Laboratory Labs Laboratory Tests Test 05/23/20 11:46 05/23/20 17:46 05/23/20 20:27 05/23/20 23:18 Glucose (Fingerstick) 288 mg/dL (70-99) 270 mg/dL (70-99) 233 mg/dL (70-99) 267 mg/dL (70-99) Test 05/24/20 05:37 05/24/20 05:45 Glucose (Fingerstick) 281 mg/dL (70-99) Sodium Level 145 mmol/L (136-145) Potassium Level 3.2 mmol/L (3.5-5.1) Chloride Level 104 mmol/L (98-107) Carbon Dioxide Level 31 mmol/L (21-32) Anion Gap 10 (6-14) Blood Urea Nitrogen 40 mg/dL (7-20) Creatinine 1.2 mg/dL (0.6-1.0) Estimated GFR (Cockcroft-Gault) 43.9 Glucose Level 295 mg/dL (70-99) Calcium Level 8.7 mg/dL (8.5-10.1) Phosphorus Level 4.2 mg/dL (2.6-4.7) Magnesium Level 2.2 mg/dL (1.8-2.4) Microbiology Micro Microbiology 05/15/20 Blood Culture - Final, Complete NO GROWTH AFTER 5 DAYS Review of Systems Constitutional: yes: weakness, alert, oriented, other Ears/Nose/Throat: Yes: no symptom reported Eyes: Yes: no symptom reported Pulmonary: Yes dyspnea Cardiovascular: Yes no symptom reported Genitourinary: Yes: no symptom reported Musculoskeletal: Yes: no symptom reported Skin: Yes no symptom reported Psychiatric/Neurological: Yes: no symptom reported Endocrine: Yes: no symptom reported Physical Exam HEENT: Neck Supple W Full Motion, Other (Dobbhoff) Chest: Symmetric LUNGS: Other (NC) Heart: RRR (SR), other (distant heart tones ) Abdomen: Other (obese) Extremities: Other (1+ bilateral LE edema ) Neurology: alert, oriented, follow commands Assessment Assessment 1. Acute respiratory failure with a/c CHF, AECOPD, and CAD; s/p extubation, doing well. 2. Acute on chronic combined diastolic/systolic CHF; better compensated. 4. NSTEMI, 3VD CAD; s/p PCI/SEAN to ostial LAD and distal left main with PTCA to proximal LAD ISR. 5. Ischemic cardiomyopathy; Echo showed LVEF 45-50% 6. Diabetes, II; uncontrolled. as per im 8. HTN: improved, but remains elevated 9. Hyperlipidemia; statin therapy 10. AVIVA on CKD; improved 11. Dysphagia; failed swallow study. Dobbhoff placed 12. Hypokalemia Recommendations Secondary prevention including DAPT with ASA/prasugrel Continue high-dose statin and metoprolol. Will increase to 25mg BID Add isosorbide Hydralazine IV PRN Lasix therapy, monitor renal function. Replace K Ongoing support Justicifation of Admission Dx: Justifications for Admission: Justification of Admission Dx: N/A SHARYN BARFIELD MD 05/24/202024: CARDIO Progress Notes Plan Plan Pt. seen and examined. 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 Per records, she is negative 12 L since 3 days ago and still has dyspnea and abd pain, this is less likely to be cardiac. Consider chronic abd pain issues. Supportive care. MARLEEN MCGREGOR APRN May 24, 2020 11:21 SHARYN BARFIELD MD May 24, 2020 20:25
[2020-05-24] MEDS: fentaNYL PF VIAL 100 MCG/2 ML VIAL IVP PRN (12:47)
[2020-05-24] MEDS: ALBUTEROL SULFATE 2.5 MG/3 ML NEBU. NEB PRN ×2 (13:32→15:44)
[2020-05-24] MEDS ORDERED: ELECTROLYTE (NON-ICU) PROTOCOL. MC PRN (13:45)
[2020-05-24] MEDS ORDERED: POTASSIUM CHLORIDE 20MEQ 100 ML IV ONE (14:15)
--- NOTE | 2020-05-24 14:18 | PDOC ---
[facility] PROGRESS NOTE Date of Service DOS: DATE: 05/24/20 TIME: 14:09 Chief Complaint Chief Complaint A/P: Sepsis, severe sepsis, shock Acute hypoxemic respiratory failure, on COPD and ARIANNA currently on BiPAP, intubated. Extubated 05/20/2020 Severe triple-vessel disease status post LAD stent. Patient poor prognosis and poor surgical candidate for CABG COVID risk, pt initial swab is negative acute acidosis on CKD 4, renal failure, DKA, acute acidosis with hyperosmolar syndrome, weaned off of insulin drip troponinemia, NSTEMI 2, demand, obese, BMI 39, some pickwickian habitus constipation, on chronic abdominal hernia, with abdominal pain History of Present Illness History of Present Illness Ms Alberto is a 74 yo F w/ PMHx CAD and stents admitted for sudden onset chest pain while walking her dog. Noted with mid chest pain with tightness. Came by EMS, noted hypoxic to mid 80's in the ER. CT angio done for pain, showed large amt of stool. No PE. Admitted on broad spectrum antibiotics and for NSTEMI. 05/17: No acute events overnight. Patient remains afebrile. Intubated after she could not tolerate BiPAP 05/18: No acute events overnight. T-max of 99.8. Patient was intubated yesterday current ventilator settings of 18/500/80%/6. Potassium 2.9 today replace with 100 mEq of IV potassium. pH 7.51, PCO2 31, PO2 260, HCO3 24. 05/19: No acute events overnight. Status post left heart cath: Severe three- vessel coronary artery disease with culprit lesion involving the LAD with balloon angioplasty of the proximal LAD in-stent restenosis & PCI of the ostial LAD. On vent 05/20: No acute events overnight. Patient currently on minimal vent settings. We will remove femoral sheath today after holding heparin drip. Extubation today. 05/21: No acute events overnight. Patient currently tolerating on Venturi mask for 12 L saturating 98%. Potassium 2.1 will replace with IV potassium as needed. 05/22: No acute events overnight. Saturating 92% on 4 L nasal cannula. Patient remains chest pain-free. Hypokalemia today at 3.0, needing IV potassium replacement. Pending speech evaluation. 05/23: No acute events overnight. Patient had NG tube Dobbhoff placed yesterday for failing speech swallow. Will start trickle feeds. Patient's chart, labs, images were reviewed and discussed with RN Afebrile. 60 cc residual tube feeds this morning despite rarely more than that would be given. Tube feeds on hold. She complains of sore throat. Still with rectal tube in place. Still on 3 L nasal cannula oxygen. K3.2. Vitals/I&O Vitals/I&O: Vital Signs Date Time Temp Pulse Resp B/P (MAP) Pulse Ox O2 Delivery O2 Flow Rate FiO2 05/24/20 13:38 Nasal Cannula 3.0 05/24/20 11:36 97 05/24/20 11:00 98.3 90 20 166/97 (120) 98.3 l I & O 05/23/20 05/23/20 05/24/20 15:00 23:00 07:00 Intake Total 0 ml 360 ml Output Total 1100 ml 400 ml Balance -1100 ml -40 ml Physical Exam Physical Exam: GENERAL: awake on 3 lit, coop and looks comfortable HEENT: Both pupils are round and reacting. No conjunctival lesion. No lesion in the mouth. NECK: Supple. No JVP. No lymphadenopathy. LUNGS: Clear. HEART: S1, S2 regular. ABDOMEN: Benign. Dobhoff : nicole EXTREMITIES: No edema or cyanosis. SKIN: Unremarkable. NEUROLOGIC: Alert and coop IV: clean IJ General: Alert, Cooperative Heart: Regular rate Lungs: Clear Abdomen: Normal bowel sounds Extremities: No cyanosis, No edema Skin: No rashes Labs Labs: Laboratory Tests Test 05/23/20 17:46 05/23/20 20:27 05/23/20 23:18 05/24/20 05:37 Glucose (Fingerstick) 270 mg/dL (70-99) 233 mg/dL (70-99) 267 mg/dL (70-99) 281 mg/dL (70-99) Test 05/24/20 05:45 05/24/20 11:49 Sodium Level 145 mmol/L (136-145) Potassium Level 3.2 mmol/L (3.5-5.1) Chloride Level 104 mmol/L (98-107) Carbon Dioxide Level 31 mmol/L (21-32) Anion Gap 10 (6-14) Blood Urea Nitrogen 40 mg/dL (7-20) Creatinine 1.2 mg/dL (0.6-1.0) Estimated GFR (Cockcroft-Gault) 43.9 Glucose Level 295 mg/dL (70-99) Calcium Level 8.7 mg/dL (8.5-10.1) Phosphorus Level 4.2 mg/dL (2.6-4.7) Magnesium Level 2.2 mg/dL (1.8-2.4) Glucose (Fingerstick) 301 mg/dL (70-99) Comment Review of Relevant I have reviewed the following items danisha (where applicable) has been applied. Medications: Current Medications Medications (Trade) Dose Ordered Sig/Morgan Route PRN Reason Start Time Stop Time Status Last Admin Dose Admin Magnesium Sulfate 50 ml @ 25 mls/hr 1X ONCE IV 05/23/20 15:00 05/23/20 16:59 DC 05/23/20 15:13 Furosemide (Lasix) 40 mg 1X ONCE IVP 05/23/20 14:45 05/23/20 14:46 DC 05/23/20 15:12 Potassium Chloride/Water 100 ml @ 100 mls/hr 1X ONCE IV 05/23/20 15:00 05/23/20 15:59 DC 05/23/20 15:12 Non-Formulary Medication (GALCANEZUMAB (Emgality) 120mg/ 1ml syringe) 1 ea Q28D SQ 05/24/20 10:45 05/24/20 11:53 Albuterol Sulfate (Ventolin Neb Soln) 2.5 mg PRN Q4HRS PRN NEB SHORTNESS OF BREATH 05/24/20 11:30 05/24/20 13:32 Justifications for Admission Other Justification LISA DELA CRUZ MD May 24, 2020 14:18
[2020-05-24 15:00] VITALS: BP 183/79
[2020-05-24] MEDS ORDERED: POTASSIUM BICARB 20 MEQ EFFERVESCENT TABLET. FT ONE (15:00)
[2020-05-24] MEDS: ISOSORBIDE MONONITRATE 20 MG TABLET PO SCH (17:26)
[2020-05-24 19:48] VITALS: BP 144/62
[2020-05-24] MEDS: carBAMazepine 200 MG TABLET PO SCH (20:10)
[2020-05-24] MEDS: ATORVASTATIN CALCIUM 40 MG TABLET. PO SCH (20:11)
[2020-05-24 22:55] VITALS: BP 137/69
[2020-05-25] MEDS: fentaNYL PF VIAL 100 MCG/2 ML VIAL IVP PRN (00:49)
[2020-05-25 05:15] LABS: BASO # 0.2 x10^3/uL (0.0-0.2); BASO % 1 % (0-3); EOS # 0.2 x10^3/uL (0.0-0.7); EOS % 1 % (0-3); HEMATOCRIT 29.3 % (36.0-47.0); HEMOGLOBIN 9.3 g/dL (12.0-15.5); LYMPH # 3.4 x10^3/uL (1.0-4.8); LYMPH % 15 % (24-48); MEAN CORPUSCULAR HEMOGLOBIN 28 pg (25-35); MEAN CORPUSCULAR HGB CONC 32 g/dL (31-37); MEAN CORPUSCULAR VOLUME 88 fL (79-100); MONO # 1.8 x10^3/uL (0.0-1.1); MONO % 8 % (0-9); NEUT # 17.6 x10^3/uL (1.8-7.7); NEUT % 76 % (31-73); PLATELET COUNT 358 x10^3/uL (140-400); RED BLOOD COUNT 3.32 x10^6/uL (3.50-5.40); RED CELL DISTRIBUTION WIDTH 17.7 % (11.5-14.5); WHITE BLOOD COUNT 23.3 x10^3/uL (4.0-11.0)
[2020-05-25 05:45] LABS: CALCIUM 8.4 mg/dL (8.5-10.1); CREATININE 1.3 mg/dL (0.6-1.0); POTASSIUM 3.4 mmol/L (3.5-5.1)
[2020-05-25 07:00] VITALS: BP 131/51
[2020-05-25] MEDS: BUDESONIDE 0.5 MG/2 ML NEBU. NEB SCH ×2 (08:05→19:35)
[2020-05-25] MEDS: IPRATRPIUM/ALBUTEROL 0.5/2.5MG 3 ML NEBU. NEB SCH ×3 (08:05→19:35)
--- NOTE | 2020-05-25 08:08 | PDOC ---
Infectious Disease Note Subjective Subjective pt is feeling better pt is c/o abd pain and diarrhea ROS ROS no n/v/sob or fever Vital Sign Vital Signs Vital Signs Date Time Temp Pulse Resp B/P (MAP) Pulse Ox O2 Delivery O2 Flow Rate FiO2 05/25/20 07:00 98.0 86 18 131/51 (77) 90 Nasal Cannula 2.0 98.0 Physical Exam PHYSICAL EXAM GENERAL: awake looks comfortable HEENT: Both pupils are round and reacting. No conjunctival lesion. No lesion in the mouth. NECK: Supple. No JVP. No lymphadenopathy. LUNGS: Clear. HEART: S1, S2 regular. ABDOMEN: Benign. Dobhoff : nicole EXTREMITIES: No edema or cyanosis. SKIN: Unremarkable. NEUROLOGIC: Alert and coop IV: clean IJ Labs Lab Laboratory Tests Test 05/24/20 11:49 05/24/20 17:01 05/24/20 20:07 05/25/20 05:05 Glucose (Fingerstick) 301 mg/dL (70-99) 319 mg/dL (70-99) 438 mg/dL (70-99) White Blood Count 23.3 x10^3/uL (4.0-11.0) Red Blood Count 3.32 x10^6/uL (3.50-5.40) Hemoglobin 9.3 g/dL (12.0-15.5) Hematocrit 29.3 % (36.0-47.0) Mean Corpuscular Volume 88 fL (79-100) Mean Corpuscular Hemoglobin 28 pg (25-35) Mean Corpuscular Hemoglobin Concent 32 g/dL (31-37) Red Cell Distribution Width 17.7 % (11.5-14.5) Platelet Count 358 x10^3/uL (140-400) Neutrophils (%) (Auto) 76 % (31-73) Lymphocytes (%) (Auto) 15 % (24-48) Monocytes (%) (Auto) 8 % (0-9) Eosinophils (%) (Auto) 1 % (0-3) Basophils (%) (Auto) 1 % (0-3) Neutrophils # (Auto) 17.6 x10^3/uL (1.8-7.7) Lymphocytes # (Auto) 3.4 x10^3/uL (1.0-4.8) Monocytes # (Auto) 1.8 x10^3/uL (0.0-1.1) Eosinophils # (Auto) 0.2 x10^3/uL (0.0-0.7) Basophils # (Auto) 0.2 x10^3/uL (0.0-0.2) Sodium Level 138 mmol/L (136-145) Potassium Level 3.4 mmol/L (3.5-5.1) Chloride Level 100 mmol/L (98-107) Carbon Dioxide Level 29 mmol/L (21-32) Anion Gap 9 (6-14) Blood Urea Nitrogen 27 mg/dL (7-20) Creatinine 1.3 mg/dL (0.6-1.0) Estimated GFR (Cockcroft-Gault) 40.0 Glucose Level 405 mg/dL (70-99) Calcium Level 8.4 mg/dL (8.5-10.1) Magnesium Level 1.7 mg/dL (1.8-2.4) Test 05/25/20 06:53 Glucose (Fingerstick) 375 mg/dL (70-99) Micro Microbiology 05/15/20 Blood Culture - Preliminary, Resulted NO GROWTH AFTER 1 DAY Objective Assessment IMPRESSION: 1. Respiratory failure. 2. Coronary artery disease with acute myocardial infarction. 3. Pulmonary infiltrate, pneumonia versus congestive heart failure. 4. Chronic obstructive pulmonary disease exacerbation. 5. Acute kidney injury. 6. Hypertension. 7. Leukocytosis. 8 CAD s/p angioplasty Plan Plan of Care cont supportive care elevated wbc , check c diff start po vanc D/w nursing MASSIMO MIRELES MD May 25, 2020 08:08
[2020-05-25] MEDS: ASPIRIN CHEWABLE 81 MG TABLET. PO SCH (08:10)
[2020-05-25] MEDS: PRASUGREL 10 MG TABLET. PO SCH (08:10)
[2020-05-25] MEDS: buPROPion XL 150 MG TAB.ER.24H. PO SCH ×2 (08:10→20:52)
[2020-05-25] MEDS: ISOSORBIDE MONONITRATE 20 MG TABLET PO SCH ×2 (08:10→15:15)
[2020-05-25] MEDS: ARIPiprazole 2 MG TABLET PO SCH (08:10)
[2020-05-25] MEDS: POTASSIUM BICARB 20 MEQ EFFERVESCENT TABLET. PO SCH (08:10)
[2020-05-25] MEDS: METOPROLOL TART IMMED RELEASE 25 MG TABLET. PO SCH ×2 (08:11→20:52)
[2020-05-25] MEDS: FUROSEMIDE 40 MG TABLET. PO SCH (08:11)
[2020-05-25] MEDS: SPIRONOLACTONE 25 MG TABLET PO SCH (08:11)
[2020-05-25] MEDS: POLYETHYLENE GLYCOL 3350 17 GM PACKET. PO SCH (08:12)
[2020-05-25] MEDS: DOCUSATE SODIUM 100 MG CAPSULE. PO SCH (08:12)
[2020-05-25] MEDS: LANSOPRAZOLE 30 MG TAB.RAP.DR FT SCH (08:12)
[2020-05-25] MEDS: ASCORBIC ACID 500 MG TABLET PO SCH ×2 (08:12→20:52)
[2020-05-25] MEDS ORDERED: MAGNESIUM SULFATE 2GM 50 ML IV ONE (08:30)
[2020-05-25] MEDS: INSULIN LISPRO 300 UNITS/3 ML VIAL. SQ SCH ×6 (08:37→17:26)
[2020-05-25] MEDS: FUROSEMIDE 40 MG/4 ML VIAL. IVP SCH (08:40)
[2020-05-25] MEDS: VANCOMYCIN 125 MG/2.5 ML ORAL SOLUTION. PO SCH ×4 (08:40→20:54)
--- NOTE | 2020-05-25 09:04 | PDOC ---
DATE OF SERVICE DATE: 05/25/20 TIME: 09:03 SUBJECTIVE ROS Taking PO now, No N/V. No SOB OBJECTIVE Vital Signs Vital Signs Date Time Temp Pulse Resp B/P (MAP) Pulse Ox O2 Delivery O2 Flow Rate FiO2 05/25/20 08:11 86 131/51 05/25/20 08:10 93 Nasal Cannula 3.0 05/25/20 07:00 98.0 18 98.0 I & 0 Intake and Output 05/25/20 07:00 Intake Total 2760 ml Output Total 2400 ml Balance 360 ml Intake Oral 2760 ml Output Urine Total 2400 ml # Bowel Movements 1 PHYSICAL EXAM Physical Exam GENERAL: NAD HEENT: NG tube out NECK: Supple. No JVP. LUNGS: Clear. HEART: S1, S2 regular. ABDOMEN: soft, obese : nicole + EXTREMITIES: No edema or cyanosis. SKIN: Unremarkable. NEUROLOGIC: Alert and coop DIAGNOSIS/ASSESSMENT Assessment & Plan AVIVA- Improved, stable , good UOP Supportive care, avoid nephrotoxins Coronary artery disease with acute myocardial infarction- S/p PTCA CKD Stage 3 - Baseline Cr 1.5, follows with Dr. Shields as OP Respiratory failure- Pulmonary infiltrate, pneumonia versus congestive heart failure.Extubated , on O2 by [place] Chronic obstructive pulmonary disease exacerbation. Hypertension. COMMENT/RELEVANT DATA Meds Current Medications Medications (Trade) Dose Ordered Sig/Morgan Start Time Stop Time Status Last Admin Dose Admin Acetaminophen (Tylenol) 1,000 mg 1X ONCE 05/14/20 22:30 05/14/20 22:39 DC 05/14/20 23:04 1,000 MG Acetaminophen/ Aspirin/Caffeine (Excedrin Migraine) 1 tab PRN Q6HRS PRN 05/15/20 03:00 05/23/20 20:17 1 TAB Albumin Human 100 ml @ 100 mls/hr 1X ONCE 05/19/20 12:00 05/19/20 12:59 DC 05/19/20 11:56 100 MLS/HR Albuterol Sulfate (Ventolin Neb Soln) 2.5 mg PRN Q4HRS PRN 05/24/20 11:30 05/24/20 15:44 2.5 MG Albuterol/ Ipratropium (Duoneb) 3 ml TID 05/16/20 14:00 05/25/20 08:05 3 ML Aripiprazole (Abilify) 2 mg DAILY 05/16/20 11:00 05/25/20 08:10 2 MG Ascorbic Acid (Vitamin C) 500 mg BID 05/16/20 10:15 05/25/20 08:12 500 MG Aspirin (Aspirin Chewable) 81 mg DAILYWBKFT 05/19/20 08:00 05/25/20 08:10 81 MG Aspirin (Ecotrin) 81 mg DAILY 05/16/20 10:00 05/19/20 07:46 DC 05/18/20 09:58 81 MG Atorvastatin Calcium (Lipitor) 80 mg QHS 05/16/20 21:00 05/24/20 20:11 80 MG Atropine Sulfate (ATROPINE 0.5mg SYRINGE) 0.5 mg PRN Q5MIN PRN 05/17/20 09:45 05/21/20 06:38 DC Budesonide (Pulmicort) 0.5 mg 1X ONCE 05/15/20 14:30 05/15/20 14:54 DC 05/15/20 15:48 0.5 MG Bupropion HCl (Wellbutrin Xl) 150 mg BID 05/16/20 10:14 05/25/20 08:10 150 MG Carbamazepine (TEGretol) 200 mg QHS 05/16/20 21:00 05/24/20 20:10 200 MG Chlorhexidine Gluconate (Peridex) 15 ml BID 05/17/20 21:00 05/19/20 07:45 DC 05/18/20 21:35 15 ML Dexmedetomidine HCl 400 mcg/ Sodium Chloride 100 ml @ 0 mls/hr CONT PRN 05/17/20 09:45 05/21/20 06:38 DC 05/17/20 14:16 16.6 MLS/HR Dextrose (Dextrose 50%-Water Syringe) 12.5 gm PRN Q15MIN PRN 05/15/20 07:30 Docusate Sodium (Colace) 100 mg DAILY 05/15/20 09:00 05/17/20 08:50 100 MG Dopamine HCl/ Dextrose 250 ml @ 13.538 mls/ hr CONT PRN 05/14/20 23:00 05/21/20 06:38 DC 05/15/20 20:57 27.075 MLS/HR Etomidate (Amidate) 20 mg 1X ONCE 05/17/20 17:45 05/17/20 17:46 DC 05/17/20 17:42 20 MG Fentanyl Citrate 30 ml @ 0 mls/hr CONT PRN 05/17/20 17:00 05/21/20 06:38 DC 05/20/20 00:52 2.5 MLS/HR Fentanyl Citrate (Fentanyl 2ml Vial) 50 mcg PRN Q3HRS PRN 05/15/20 03:00 05/25/20 00:49 50 MCG Furosemide (Lasix) 40 mg DAILY 05/25/20 09:00 05/25/20 08:11 40 MG Heparin Sodium (Porcine) (Heparin Sodium) 2,000 unit PRN Q6HRS PRN 05/18/20 12:15 05/20/20 07:37 DC Heparin Sodium/ Dextrose 250 ml @ 0 mls/hr CONT PRN 05/18/20 12:15 05/19/20 14:49 DC 05/18/20 12:19 9.6 MLS/HR Heparin Sodium/ Sodium Chloride (HEPARIN for ARTERIAL LINE FLUSH) 1,000 unit 1X ONCE 05/18/20 12:15 05/18/20 12:18 DC 05/18/20 12:15 1,000 UNIT Hydrocortisone Sodium Succinate (Solu-CORTEF) 50 mg Q8HRS 05/20/20 14:00 05/21/20 06:43 DC 05/21/20 06:20 50 MG Info (Anti-Coagulation Monitoring By Pharmacy) 1 each PRN DAILY PRN 05/15/20 08:00 05/20/20 07:40 DC 05/19/20 07:42 1 EACH Info (CONTRAST GIVEN -- Rx MONITORING) 1 each PRN DAILY PRN 05/14/20 20:15 05/16/20 20:14 DC Info (Icu Electrolyte Protocol) 1 ea CONT PRN PRN 05/21/20 07:30 05/24/20 13:34 DC Info (Non-Icu Electrolyte Protocol) 1 ea CONT PRN PRN 05/24/20 13:45 Insulin Glargine (Lantus Syringe) 32 unit QHS 05/24/20 21:00 05/24/20 20:13 32 UNIT Insulin Human Lispro (HumaLOG) 0-9 UNITS TIDWMEALS 05/25/20 08:00 05/25/20 08:38 9 UNITS Insulin Human Regular 100 unit/ Sodium Chloride 101 ml @ 0 mls/hr CONT PRN 05/15/20 08:30 05/19/20 14:49 DC 05/15/20 21:18 13.029 MLS/HR Iodixanol (Visipaque 320) 100 ml 1X ONCE 05/18/20 12:15 05/18/20 12:18 DC Iohexol (Omnipaque 350 Mg/ml) 100 ml 1X ONCE 05/14/20 20:00 05/14/20 20:01 DC 05/14/20 20:03 100 ML Isosorbide Mononitrate (Ismo) 20 mg [id number] 05/24/20 15:30 05/25/20 08:10 20 MG Labetalol HCl (Normodyne Iv Push) 20 mg PRN Q2HR PRN 05/21/20 09:30 05/23/20 23:28 20 MG Lansoprazole (Prevacid) 30 mg DAILYAC 05/25/20 07:30 05/25/20 08:12 30 MG Lidocaine HCl (Lidocaine 1% 20ml Vial) 20 ml 1X ONCE 05/18/20 12:15 05/18/20 12:18 DC Lidocaine HCl (Xylocaine-Mpf 1% 2ml Vial) 2 ml STK-MED ONCE 05/18/20 10:07 05/18/20 10:08 DC Linezolid/Dextrose 300 ml @ 300 mls/hr Q12HR 05/17/20 09:00 05/20/20 08:02 DC 05/19/20 21:01 300 MLS/HR Lorazepam (Ativan Inj) 0.25 mg PRN Q6HRS PRN 05/21/20 16:30 05/25/20 02:04 0.25 MG Lorazepam (Ativan) 0.5 mg PRN Q8HRS PRN 05/16/20 10:00 05/21/20 06:38 DC 05/17/20 08:50 0.5 MG Magnesium Sulfate 50 ml @ 25 mls/hr 1X ONCE 05/25/20 08:30 05/25/20 10:29 05/25/20 08:30 25 MLS/HR Metoprolol Succinate (Toprol Xl) 12.5 mg DAILY 05/16/20 10:15 05/19/20 09:40 DC 05/17/20 08:51 12.5 MG Metoprolol Tartrate (Lopressor Vial) 5 mg PRN Q8HRS PRN 05/21/20 19:45 05/23/20 20:49 5 MG Metoprolol Tartrate (Lopressor) 25 mg BID 05/24/20 21:00 05/25/20 08:11 25 MG Midazolam HCl 100 ml @ 0 mls/hr CONT PRN 05/17/20 17:00 05/21/20 06:38 DC 05/19/20 15:40 2 MLS/HR Midazolam HCl (Versed) 2 mg STK-MED ONCE 05/14/20 18:16 05/14/20 18:16 DC Nitroglycerin (Nitroglycerin) 200 mcg 1X ONCE 05/18/20 12:15 05/18/20 12:18 DC 05/18/20 12:15 200 MCG Non-Formulary Medication (GALCANEZUMAB (Emgality) 120mg/ 1ml syringe) 1 ea Q28D 05/24/20 10:45 05/24/20 11:53 1 EA Norepinephrine Bitartrate 32 mg/ Dextrose 282 ml @ 3.818 mls/ hr CONT PRN 05/15/20 15:00 05/21/20 06:38 DC 05/17/20 13:35 3.818 MLS/HR Norepinephrine Bitartrate 8 mg/ Dextrose 258 ml @ 13.971 mls/ hr CONT PRN 05/14/20 23:00 05/15/20 14:59 DC 05/15/20 11:02 82.427 MLS/HR Ondansetron HCl (Zofran) 4 mg PRN Q8HRS PRN 05/16/20 03:15 05/23/20 21:58 4 MG Pantoprazole Sodium (PROTONIX VIAL for IV PUSH) 40 mg DAILYAC 05/17/20 07:30 05/24/20 13:46 DC 05/24/20 05:41 40 MG Phenol (Chloraseptic) 1 spray PRN Q2HR PRN 05/23/20 10:15 05/23/20 22:59 1 SPRAY Piperacillin Sod/ Tazobactam Sod (Zosyn Per Pharmacy) 1 each PRN DAILY PRN 05/15/20 08:30 05/22/20 07:19 DC Piperacillin Sod/ Tazobactam Sod 2.25 gm/Sodium Chloride 50 ml @ 100 mls/hr Q6HRS 05/16/20 18:00 05/22/20 07:19 DC 05/22/20 05:16 100 MLS/HR Piperacillin Sod/ Tazobactam Sod 3.375 gm/Sodium Chloride 50 ml @ 100 mls/hr 1X ONCE 05/14/20 19:15 05/14/20 19:44 UNV Polyethylene Glycol (miraLAX PACKET) 17 gm PRN DAILY PRN 05/15/20 08:30 05/15/20 13:43 17 GM Potassium Bicarbonate (Potassium Effervescent Tablet) 20 meq DAILY 05/25/20 09:00 05/25/20 08:10 20 MEQ Potassium Chloride/Water 100 ml @ 100 mls/hr 1X ONCE 05/24/20 14:15 05/24/20 15:14 DC 05/24/20 14:15 100 MLS/HR Potassium Phosphate 13.6 mmol/Sodium Chloride 254.5333 ml @ 127.... Q2H 05/22/20 16:00 05/22/20 19:59 DC 05/22/20 19:12 127.267 MLS/HR Potassium Chloride (Klor-Con) 20 meq 1X ONCE 05/22/20 15:30 05/22/20 15:31 DC 05/22/20 17:17 20 MEQ Prasugrel (Effient) 30 mg 1X ONCE 05/18/20 12:15 05/18/20 12:18 DC 05/18/20 12:15 30 MG Propofol 100 ml @ 2.52 mls/hr CONT PRN 05/19/20 15:45 05/21/20 06:38 DC 05/20/20 09:19 10.08 MLS/HR Ringer's Solution 1,000 ml @ 100 mls/hr Q10H 05/16/20 14:45 05/17/20 10:47 DC 05/17/20 00:00 100 MLS/HR Sodium Bicarbonate 150 meq/Sterile Water 1,150 ml @ 125 mls/hr Q9H12M 05/15/20 09:00 05/16/20 09:07 DC 05/16/20 03:20 125 MLS/HR Sodium Monofluorophosphate (Fleet Adult) 133 ml DAILY PRN 05/15/20 13:45 05/16/20 13:24 133 ML Sodium Bicarbonate (Sodium Bicarb Adult 8.4% Syr) 50 meq 1X ONCE 05/17/20 19:15 05/17/20 19:16 DC 05/17/20 19:23 50 MEQ Sodium Chloride 1,000 ml @ 100 mls/hr Q10H 05/17/20 11:00 05/19/20 13:31 DC 05/18/20 16:55 100 MLS/HR Spironolactone (Aldactone) 25 mg DAILY 05/25/20 09:00 05/25/20 08:11 25 MG Succinylcholine Chloride (Anectine) 200 mg 1X ONCE 05/17/20 17:45 05/17/20 17:46 DC 05/17/20 17:42 200 MG Vancomycin HCl (Vanco Per Pharmacy) 1 each PRN DAILY PRN 05/15/20 08:30 05/17/20 08:51 DC 05/17/20 07:35 1 EACH Vancomycin HCl (Vancomycin Random Level) 1 each 1X ONCE 05/16/20 11:06 05/16/20 11:07 DC 05/16/20 11:06 1 EACH Vancomycin HCl (Vancomycin Trough Level) 1 each 1X ONCE 05/18/20 13:30 05/17/20 08:54 DC Vancomycin HCl (Vancomycin Oral Solution) 125 mg [id number] 05/25/20 09:00 05/25/20 08:40 125 MG Vancomycin HCl 1.25 gm/Sodium Chloride 250 ml @ 167 mls/hr Q24H 05/16/20 14:00 05/17/20 08:51 DC 05/16/20 14:05 167 MLS/HR Vasopressin 20 unit/Dextrose 101 ml @ 12 mls/hr CONT PRN 05/14/20 23:00 05/21/20 06:38 DC 05/16/20 19:48 12 MLS/HR Verapamil HCl (Verapamil) 5 mg STK-MED ONCE 05/18/20 11:00 05/19/20 11:04 DC Lab Laboratory Tests Test 05/24/20 11:49 05/24/20 17:01 05/24/20 20:07 05/25/20 05:05 Glucose (Fingerstick) 301 mg/dL (70-99) 319 mg/dL (70-99) 438 mg/dL (70-99) White Blood Count 23.3 x10^3/uL (4.0-11.0) Red Blood Count 3.32 x10^6/uL (3.50-5.40) Hemoglobin 9.3 g/dL (12.0-15.5) Hematocrit 29.3 % (36.0-47.0) Mean Corpuscular Volume 88 fL (79-100) Mean Corpuscular Hemoglobin 28 pg (25-35) Mean Corpuscular Hemoglobin Concent 32 g/dL (31-37) Red Cell Distribution Width 17.7 % (11.5-14.5) Platelet Count 358 x10^3/uL (140-400) Neutrophils (%) (Auto) 76 % (31-73) Lymphocytes (%) (Auto) 15 % (24-48) Monocytes (%) (Auto) 8 % (0-9) Eosinophils (%) (Auto) 1 % (0-3) Basophils (%) (Auto) 1 % (0-3) Neutrophils # (Auto) 17.6 x10^3/uL (1.8-7.7) Lymphocytes # (Auto) 3.4 x10^3/uL (1.0-4.8) Monocytes # (Auto) 1.8 x10^3/uL (0.0-1.1) Eosinophils # (Auto) 0.2 x10^3/uL (0.0-0.7) Basophils # (Auto) 0.2 x10^3/uL (0.0-0.2) Sodium Level 138 mmol/L (136-145) Potassium Level 3.4 mmol/L (3.5-5.1) Chloride Level 100 mmol/L (98-107) Carbon Dioxide Level 29 mmol/L (21-32) Anion Gap 9 (6-14) Blood Urea Nitrogen 27 mg/dL (7-20) Creatinine 1.3 mg/dL (0.6-1.0) Estimated GFR (Cockcroft-Gault) 40.0 Glucose Level 405 mg/dL (70-99) Calcium Level 8.4 mg/dL (8.5-10.1) Magnesium Level 1.7 mg/dL (1.8-2.4) Test 05/25/20 06:53 Glucose (Fingerstick) 375 mg/dL (70-99) Results All relevant outside records, renal labs, imaging studies, telemetry/EKG's were reviewed. Justicifation of Admission Dx: Justifications for Admission: Justification of Admission Dx: N/A HUA BENITEZ MD May 25, 2020 09:04
[2020-05-25 10:05] VITALS: BP 116/47
--- NOTE | 2020-05-25 10:09 | PDOC ---
PULMONARY PROGRESS NOTES DATE: 05/25/20 TIME: 10:07 Subjective Extubated on 05/20, now on 3 liters N/C Status post cardiac cath on 05/18 with PCI increased weakness, now being tested for C.Diff No overnight concerns from nursing Vitals Vital Signs Date Time Temp Pulse Resp B/P (MAP) Pulse Ox O2 Delivery O2 Flow Rate FiO2 05/25/20 10:05 98.4 81 18 116/47 (70) 93 Nasal Cannula 2.0 98.4 ROS: No Nausea, No Chest Pain, No Abdominal Pain, No Increase Cough General: Alert, Oriented X4 Lungs: Clear Cardiovascular: S1, S2 Abdomen: Soft, Other Extremities: Other (trace edema) Skin: Warm Labs Laboratory Tests Test 05/23/20 11:46 05/23/20 17:46 05/23/20 20:27 05/23/20 23:18 Glucose (Fingerstick) 288 mg/dL (70-99) 270 mg/dL (70-99) 233 mg/dL (70-99) 267 mg/dL (70-99) Test 05/24/20 05:37 05/24/20 05:45 05/24/20 11:49 05/24/20 17:01 Glucose (Fingerstick) 281 mg/dL (70-99) 301 mg/dL (70-99) 319 mg/dL (70-99) Sodium Level 145 mmol/L (136-145) Potassium Level 3.2 mmol/L (3.5-5.1) Chloride Level 104 mmol/L (98-107) Carbon Dioxide Level 31 mmol/L (21-32) Anion Gap 10 (6-14) Blood Urea Nitrogen 40 mg/dL (7-20) Creatinine 1.2 mg/dL (0.6-1.0) Estimated GFR (Cockcroft-Gault) 43.9 Glucose Level 295 mg/dL (70-99) Calcium Level 8.7 mg/dL (8.5-10.1) Phosphorus Level 4.2 mg/dL (2.6-4.7) Magnesium Level 2.2 mg/dL (1.8-2.4) Test 05/24/20 20:07 05/25/20 05:05 05/25/20 06:53 Glucose (Fingerstick) 438 mg/dL (70-99) 375 mg/dL (70-99) White Blood Count 23.3 x10^3/uL (4.0-11.0) Red Blood Count 3.32 x10^6/uL (3.50-5.40) Hemoglobin 9.3 g/dL (12.0-15.5) Hematocrit 29.3 % (36.0-47.0) Mean Corpuscular Volume 88 fL (79-100) Mean Corpuscular Hemoglobin 28 pg (25-35) Mean Corpuscular Hemoglobin Concent 32 g/dL (31-37) Red Cell Distribution Width 17.7 % (11.5-14.5) Platelet Count 358 x10^3/uL (140-400) Neutrophils (%) (Auto) 76 % (31-73) Lymphocytes (%) (Auto) 15 % (24-48) Monocytes (%) (Auto) 8 % (0-9) Eosinophils (%) (Auto) 1 % (0-3) Basophils (%) (Auto) 1 % (0-3) Neutrophils # (Auto) 17.6 x10^3/uL (1.8-7.7) Lymphocytes # (Auto) 3.4 x10^3/uL (1.0-4.8) Monocytes # (Auto) 1.8 x10^3/uL (0.0-1.1) Eosinophils # (Auto) 0.2 x10^3/uL (0.0-0.7) Basophils # (Auto) 0.2 x10^3/uL (0.0-0.2) Sodium Level 138 mmol/L (136-145) Potassium Level 3.4 mmol/L (3.5-5.1) Chloride Level 100 mmol/L (98-107) Carbon Dioxide Level 29 mmol/L (21-32) Anion Gap 9 (6-14) Blood Urea Nitrogen 27 mg/dL (7-20) Creatinine 1.3 mg/dL (0.6-1.0) Estimated GFR (Cockcroft-Gault) 40.0 Glucose Level 405 mg/dL (70-99) Calcium Level 8.4 mg/dL (8.5-10.1) Magnesium Level 1.7 mg/dL (1.8-2.4) Laboratory Tests Test 05/24/20 11:49 05/24/20 17:01 05/24/20 20:07 05/25/20 05:05 Glucose (Fingerstick) 301 mg/dL (70-99) 319 mg/dL (70-99) 438 mg/dL (70-99) White Blood Count 23.3 x10^3/uL (4.0-11.0) Red Blood Count 3.32 x10^6/uL (3.50-5.40) Hemoglobin 9.3 g/dL (12.0-15.5) Hematocrit 29.3 % (36.0-47.0) Mean Corpuscular Volume 88 fL (79-100) Mean Corpuscular Hemoglobin 28 pg (25-35) Mean Corpuscular Hemoglobin Concent 32 g/dL (31-37) Red Cell Distribution Width 17.7 % (11.5-14.5) Platelet Count 358 x10^3/uL (140-400) Neutrophils (%) (Auto) 76 % (31-73) Lymphocytes (%) (Auto) 15 % (24-48) Monocytes (%) (Auto) 8 % (0-9) Eosinophils (%) (Auto) 1 % (0-3) Basophils (%) (Auto) 1 % (0-3) Neutrophils # (Auto) 17.6 x10^3/uL (1.8-7.7) Lymphocytes # (Auto) 3.4 x10^3/uL (1.0-4.8) Monocytes # (Auto) 1.8 x10^3/uL (0.0-1.1) Eosinophils # (Auto) 0.2 x10^3/uL (0.0-0.7) Basophils # (Auto) 0.2 x10^3/uL (0.0-0.2) Sodium Level 138 mmol/L (136-145) Potassium Level 3.4 mmol/L (3.5-5.1) Chloride Level 100 mmol/L (98-107) Carbon Dioxide Level 29 mmol/L (21-32) Anion Gap 9 (6-14) Blood Urea Nitrogen 27 mg/dL (7-20) Creatinine 1.3 mg/dL (0.6-1.0) Estimated GFR (Cockcroft-Gault) 40.0 Glucose Level 405 mg/dL (70-99) Calcium Level 8.4 mg/dL (8.5-10.1) Magnesium Level 1.7 mg/dL (1.8-2.4) Test 05/25/20 06:53 Glucose (Fingerstick) 375 mg/dL (70-99) Medications Active Scripts Medications Dose Route/Sig Max Daily Dose Days Date Category Effient (Prasugrel Hcl) 10 Mg Tablet 10 Mg PO DAILYWBKFT 30 06/10/19 Rx Furosemide 20 Mg Tablet 1 Tab PO DAILY 04/24/19 Reported Bupropion Xl (Bupropion Hcl) 150 Mg Tab.er.24h 150 Mg PO BID 04/24/19 Reported Tramadol Hcl 50 Mg Tablet 50 Mg PO Q4HRS PRN 04/24/19 Reported Cyclobenzaprine Hcl 5 Mg Tablet 5 Mg PO TID PRN 04/24/19 Reported Montelukast Sodium Tablet (Montelukast Sodium) 10 Mg Tablet 10 Mg PO HS 04/24/19 Reported Spironolactone 25 Mg Tablet 1 Tab PO DAILY 04/24/19 Reported Ranitidine Hcl 150 Mg Capsule 150 Mg PO DAILY 04/24/19 Reported Naproxen 500 Mg Tablet 1 Tab PO BID 30 04/24/19 Reported Atorvastatin Calcium 40 Mg Tablet 80 Mg PO QHS 12/02/18 Rx Abilify (Aripiprazole) 2 Mg Tablet 2 Mg PO DAILY 11/30/18 Reported Buspirone Hcl 15 Mg Tablet 15 Mg PO TID 11/30/18 Reported Tegretol (Carbamazepine) 200 Mg Tablet 200 Mg PO QHS 11/08/18 Reported Metoprolol Succinate ( Xl ) (Metoprolol Succinate) 25 Mg Tab.er.24h 12.5 Mg PO DAILY 11/08/18 Reported Klonopin (Clonazepam) 0.5 Mg Tablet 0.5 Mg PO PRN BID PRN 01/08/18 Reported Fish Oil 1,000 Mg Capsule ([place]-3 Fatty Acids/Fish Oil) 1 Each Capsule 1 Each PO TID 01/08/18 Reported Cymbalta (Duloxetine Hcl) 60 Mg Capsule.dr 120 Mg PO DAILY 01/08/18 Reported Loperamide (Loperamide Hcl) 2 Mg Capsule 2 Mg PO 01/04/18 Reported Zyrtec (Cetirizine Hcl) 10 Mg Tablet 1 Tab PO DAILY 01/04/18 Reported Zonisamide 100 Mg Capsule 100 Mg PO TID 12/14/17 Reported Protonix (Pantoprazole Sodium) 20 Mg Tablet.dr 40 Mg PO DAILY 12/14/17 Reported Nortriptyline Hcl 25 Mg Capsule 50 Mg PO HS 12/14/17 Reported Duoneb 0.5-3(2.5) Mg/3 Ml (Albuterol/Ipratropium) 3 Ml Ampul.neb 3 Ml NEB TID 12/14/17 Reported Multivitamins (Multivitamin) 1 Each Tablet 1 Tab PO DAILY 06/25/17 Reported Mirtazapine 15 Mg Tablet 30 Mg PO QHS 06/25/17 Reported Lisinopril 5 Mg Tablet 1 Tab PO DAILY 06/25/17 Reported Vitamin B-12 (Cyanocobalamin (Vitamin B-12)) 1,000 Mcg Tablet 1 Tab PO DAILY 06/25/17 Reported Vitamin D (Cholecalciferol (Vitamin D3)) 1,000 Unit Capsule 1 Cap PO DAILY 06/25/17 Reported Ascorbic Acid 500 Mg Tablet 500 Mg PO BID 06/25/17 Reported Voltaren (Diclofenac Sodium) 100 Gm Gel..gram. 100 Gm TP QID 02/02/15 Reported Levemir Flextouch (Insulin Detemir) 100 Unit/1 Ml Insuln.pen 36 Unit SQ BID 02/02/15 Reported Flonase Allergy Relief (Fluticasone Propionate) 9.9 Ml [place].susp 2 Spr NS DAILY 02/01/15 Reported Aspir 81 (Aspirin) 81 Mg Tablet. 81 Mg PO DAILY 09/03/13 Reported Ropinirole Hcl 1 Mg Tablet 1 Mg PO QHS 09/03/13 Reported Novolog (Insulin Aspart) 100 Unit/1 Ml Cartridge 6 Unit SQ TIDAC 09/03/13 Reported Comments CXR IMPRESSION: Persistent bibasilar opacities without significant interval change. Impression . 1. Acute hypoxemic respiratory failure, multifactorial in etiology including shock, myocardial infarction, chronic obstructive pulmonary disease with acute exacerbation, no pulmonary embolism-----now extubated on N/C 2. Abnormal CT of the chest./basal atelectasis 3. Elevated troponin, non-ST elevation myocardial infarction--NSTEMI: 3VD. POD#1 S/P PCI/SEAN to ostial LAD and distal left main with PTCA to proximal LAD ISR. Patient has swallow study scheduled today. 5. Ischemic cardiomyopathy; Echo showed LVEF 45-50% 4. Shock ,cardiac--- resolved 5. Acute kidney injury--improved 6. Chronic kidney disease-- stable 7. Chest pain. 8. Chronic obstructive pulmonary disease with acute exacerbation. 9. Obesity, obstructive sleep apnea-hypopnea syndrome. 10. leukocytosis, possible c.diff Cardiac cath Conclusion 1. Acute on chronic systolic and diastolic heart failure, LVEDP 18 mmHg 2. Severe three-vessel coronary artery disease with culprit lesion involving the LAD 3. Successful balloon angioplasty of the proximal LAD in-stent restenosis with a 2.0 x 12 mm balloon 4. Successful PCI of the ostial LAD and distal left main with implantation of a 3.5 x 12 mm Xience Cinda SEAN. Recommendations 1. Aspirin 81 mg daily 2. Prasugrel 10 mg daily 3. Continuation of heparin drip for the next 24 hours 4. Overall, the patient has severe coronary artery disease and given her other comorbidities she has an overall poor prognosis but continue inotropic support a t this time and we will try to wean from the ventilator over the next 48 hours after diuresis and stabilization of renal function and pulmonary status. Plan . PLAN: Continue current supplemental oxygen support, currently on 3 liters N/C, baseline oxygen requirement is 2 liters N/C NEBS, including Pulmicort CXR reviewed Follow ID recs in regards to ABX -- testing for C.Diff and started on po vanco Follow cultures--- no growth to date Follow cardiology recs--status post PCI on 05/18/2020 to the LAD, hypertension and diruesis per cardiology Follow nephrology recs-- monitor renal function HTN per PCP and Hyperglycemia Physical therapy/Occupational Therapy/speech therapy DVT/GI PPX D/W RN and RT CONRADO FAGAN MD May 25, 2020 10:09
[2020-05-25] MEDS ORDERED: POTASSIUM BICARB 20 MEQ EFFERVESCENT TABLET. PO ONE (10:15)
--- NOTE | 2020-05-25 10:18 | PDOC ---
[facility] PROGRESS NOTE Date of Service DOS: DATE: 05/25/20 TIME: 10:14 Chief Complaint Chief Complaint A/P: Sepsis, severe sepsis, shock Acute hypoxemic respiratory failure, on COPD and ARIANNA currently on BiPAP, intubated. Extubated 05/20/2020 Severe triple-vessel disease status post LAD stent. Patient poor prognosis and poor surgical candidate for CABG COVID risk, pt initial swab is negative acute acidosis on CKD 4, renal failure, DKA, acute acidosis with hyperosmolar syndrome, weaned off of insulin drip troponinemia, NSTEMI 2, demand, obese, BMI 39, some pickwickian habitus Diarrhea - check for c. difficile Chronic abdominal hernia, with abdominal pain History of Present Illness History of Present Illness Ms Alberto is a 74 yo F w/ PMHx CAD and stents admitted for sudden onset chest pain while walking her dog. Noted with mid chest pain with tightness. Came by EMS, noted hypoxic to mid 80's in the ER. CT angio done for pain, showed large amt of stool. No PE. Admitted on broad spectrum antibiotics and for NSTEMI. 05/17: No acute events overnight. Patient remains afebrile. Intubated after she could not tolerate BiPAP 05/18: No acute events overnight. T-max of 99.8. Patient was intubated yesterday current ventilator settings of 18/500/80%/6. Potassium 2.[address] with 100 mEq of IV potassium. pH 7.51, PCO2 31, PO2 260, HCO3 24. 05/19: No acute events overnight. Status post left heart cath: Severe three- vessel coronary artery disease with culprit lesion involving the LAD with balloon angioplasty of the proximal LAD in-stent restenosis & PCI of the ostial LAD. On vent 05/20: No acute events overnight. Patient currently on minimal vent settings. We will remove femoral sheath today after holding heparin drip. Extubation today. 05/21: No acute events overnight. Patient currently tolerating on Venturi mask for 12 L saturating 98%. Potassium 2.1 will replace with IV potassium as needed. 05/22: No acute events overnight. Saturating 92% on 4 L nasal cannula. Patient remains chest pain-free. Hypokalemia today at 3.0, needing IV potassium replacement. Pending speech evaluation. 05/23: No acute events overnight. Patient had NG tube Dobbhoff placed yesterday for failing speech swallow. Will start trickle feeds. Patient's chart, labs, images were reviewed and discussed with RN 05/24: Afebrile. 60 cc residual tube feeds this morning despite rarely more than that would be given. Tube feeds on hold. She complains of sore throat. Still with rectal tube in place. Still on 3 L nasal cannula oxygen. K3.2. NGT out. Taking PO now. Still with loose stools, WBC up to 23K. Glucose in 300s. Vitals/I&O Vitals/I&O: Vital Signs Date Time Temp Pulse Resp B/P (MAP) Pulse Ox O2 Delivery O2 Flow Rate FiO2 05/25/20 10:05 98.4 81 18 116/47 (70) 93 Nasal Cannula 2.0 98.4 I & O 05/24/20 05/24/20 05/25/20 15:00 23:00 07:00 Intake Total 800 ml 1960 ml Output Total 1400 ml 1000 ml Balance -600 ml 960 ml Physical Exam Physical Exam: GENERAL: awake looks comfortable HEENT: Both pupils are round and reacting. No conjunctival lesion. No lesion in the mouth. NECK: Supple. No JVP. No lymphadenopathy. LUNGS: Clear. HEART: S1, S2 regular. ABDOMEN: Benign. Dobhoff : nicole EXTREMITIES: No edema or cyanosis. SKIN: Unremarkable. NEUROLOGIC: Alert and coop IV: clean IJ General: Alert, Cooperative Heart: Regular rate Lungs: Clear Abdomen: Normal bowel sounds Extremities: No cyanosis, No edema Skin: No rashes Labs Labs: Laboratory Tests Test 05/24/20 11:49 05/24/20 17:01 05/24/20 20:07 05/25/20 05:05 Glucose (Fingerstick) 301 mg/dL (70-99) 319 mg/dL (70-99) 438 mg/dL (70-99) White Blood Count 23.3 x10^3/uL (4.0-11.0) Red Blood Count 3.32 x10^6/uL (3.50-5.40) Hemoglobin 9.3 g/dL (12.0-15.5) Hematocrit 29.3 % (36.0-47.0) Mean Corpuscular Volume 88 fL (79-100) Mean Corpuscular Hemoglobin 28 pg (25-35) Mean Corpuscular Hemoglobin Concent 32 g/dL (31-37) Red Cell Distribution Width 17.7 % (11.5-14.5) Platelet Count 358 x10^3/uL (140-400) Neutrophils (%) (Auto) 76 % (31-73) Lymphocytes (%) (Auto) 15 % (24-48) Monocytes (%) (Auto) 8 % (0-9) Eosinophils (%) (Auto) 1 % (0-3) Basophils (%) (Auto) 1 % (0-3) Neutrophils # (Auto) 17.6 x10^3/uL (1.8-7.7) Lymphocytes # (Auto) 3.4 x10^3/uL (1.0-4.8) Monocytes # (Auto) 1.8 x10^3/uL (0.0-1.1) Eosinophils # (Auto) 0.2 x10^3/uL (0.0-0.7) Basophils # (Auto) 0.2 x10^3/uL (0.0-0.2) Sodium Level 138 mmol/L (136-145) Potassium Level 3.4 mmol/L (3.5-5.1) Chloride Level 100 mmol/L (98-107) Carbon Dioxide Level 29 mmol/L (21-32) Anion Gap 9 (6-14) Blood Urea Nitrogen 27 mg/dL (7-20) Creatinine 1.3 mg/dL (0.6-1.0) Estimated GFR (Cockcroft-Gault) 40.0 Glucose Level 405 mg/dL (70-99) Calcium Level 8.4 mg/dL (8.5-10.1) Magnesium Level 1.7 mg/dL (1.8-2.4) Test 05/25/20 06:53 Glucose (Fingerstick) 375 mg/dL (70-99) Comment Review of Relevant I have reviewed the following items danisha (where applicable) has been applied. Medications: Current Medications Medications (Trade) Dose Ordered Sig/Morgan Route PRN Reason Start Time Stop Time Status Last Admin Dose Admin Non-Formulary Medication (GALCANEZUMAB (Emgality) 120mg/ 1ml syringe) 1 ea Q28D SQ 05/24/20 10:45 05/24/20 11:53 Albuterol Sulfate (Ventolin Neb Soln) 2.5 mg PRN Q4HRS PRN NEB SHORTNESS OF BREATH 05/24/20 11:30 05/24/20 15:44 Potassium Bicarbonate (Potassium Effervescent Tablet) 40 meq 1X ONCE FT 05/24/20 15:00 05/24/20 15:01 DC 05/24/20 14:52 Lansoprazole (Prevacid) 30 mg DAILYAC FT 05/25/20 07:30 05/25/20 08:12 Insulin Glargine (Lantus Syringe) 32 unit QHS SQ 05/24/20 21:00 05/24/20 20:13 Spironolactone (Aldactone) 25 mg DAILY PO 05/25/20 09:00 05/25/20 08:11 Insulin Human Lispro (HumaLOG) 3 units TIDWMEALS SQ 05/24/20 17:00 05/25/20 08:37 Potassium Chloride/Water 100 ml @ 100 mls/hr 1X ONCE IV 05/24/20 14:15 05/24/20 15:14 DC 05/24/20 14:15 Metoprolol Tartrate (Lopressor) 25 mg BID PO 05/24/20 21:00 05/25/20 08:11 Isosorbide Mononitrate (Ismo) 20 mg [id number] PO 05/24/20 15:30 05/25/20 08:10 Furosemide (Lasix) 40 mg DAILY PO 05/25/20 09:00 05/25/20 08:11 Potassium Bicarbonate (Potassium Effervescent Tablet) 20 meq DAILY PO 05/25/20 09:00 05/25/20 08:10 Insulin Human Lispro (HumaLOG) 0-9 UNITS TIDWMEALS SQ 05/25/20 08:00 05/25/20 08:38 Vancomycin HCl (Vancomycin Oral Solution) 125 mg [id number] PO 05/25/20 09:00 05/25/20 08:40 Magnesium Sulfate 50 ml @ 25 mls/hr 1X ONCE IV 05/25/20 08:30 05/25/20 10:29 05/25/20 08:30 Justifications for Admission Other Justification LISA DELA CRUZ MD May 25, 2020 10:18
[2020-05-25] MEDS: ASA/APAP/CAFFEINE 250/250/65MG TABLET. PO PRN (11:14)
--- NOTE | 2020-05-25 12:47 | PDOC ---
MARLEEN MCGREGOR CERTIFIED NURSE MIDWIFE 05/25/20 1247: CARDIO Progress Notes Date and Time Date of Service 05/25/20 Time of Evaluation 1246 Subjective Subjective: No Chest Pain, No shortness of breath, No Palpitations, Other (nausea/abd pain better today) Vitals Vitals Vital Signs Date Time Temp Pulse Resp B/P (MAP) Pulse Ox O2 Delivery O2 Flow Rate FiO2 05/25/20 11:45 Nasal Cannula 3.0 05/25/20 10:05 98.4 81 18 116/47 (70) 93 98.4 Weight Weight [ ] Input and Output Intake and Output Intake and Output 05/25/20 07:00 Intake Total 2760 ml Output Total 2400 ml Balance 360 ml Intake Oral 2760 ml Output Urine Total 2400 ml # Bowel Movements 1 Laboratory Labs Laboratory Tests Test 05/24/20 17:01 05/24/20 20:07 05/25/20 05:05 05/25/20 06:53 Glucose (Fingerstick) 319 mg/dL (70-99) 438 mg/dL (70-99) 375 mg/dL (70-99) White Blood Count 23.3 x10^3/uL (4.0-11.0) Red Blood Count 3.32 x10^6/uL (3.50-5.40) Hemoglobin 9.3 g/dL (12.0-15.5) Hematocrit 29.3 % (36.0-47.0) Mean Corpuscular Volume 88 fL (79-100) Mean Corpuscular Hemoglobin 28 pg (25-35) Mean Corpuscular Hemoglobin Concent 32 g/dL (31-37) Red Cell Distribution Width 17.7 % (11.5-14.5) Platelet Count 358 x10^3/uL (140-400) Neutrophils (%) (Auto) 76 % (31-73) Lymphocytes (%) (Auto) 15 % (24-48) Monocytes (%) (Auto) 8 % (0-9) Eosinophils (%) (Auto) 1 % (0-3) Basophils (%) (Auto) 1 % (0-3) Neutrophils # (Auto) 17.6 x10^3/uL (1.8-7.7) Lymphocytes # (Auto) 3.4 x10^3/uL (1.0-4.8) Monocytes # (Auto) 1.8 x10^3/uL (0.0-1.1) Eosinophils # (Auto) 0.2 x10^3/uL (0.0-0.7) Basophils # (Auto) 0.2 x10^3/uL (0.0-0.2) Sodium Level 138 mmol/L (136-145) Potassium Level 3.4 mmol/L (3.5-5.1) Chloride Level 100 mmol/L (98-107) Carbon Dioxide Level 29 mmol/L (21-32) Anion Gap 9 (6-14) Blood Urea Nitrogen 27 mg/dL (7-20) Creatinine 1.3 mg/dL (0.6-1.0) Estimated GFR (Cockcroft-Gault) 40.0 Glucose Level 405 mg/dL (70-99) Calcium Level 8.4 mg/dL (8.5-10.1) Magnesium Level 1.7 mg/dL (1.8-2.4) Test 05/25/20 11:01 Glucose (Fingerstick) 367 mg/dL (70-99) Microbiology Micro Microbiology 05/15/20 Blood Culture - Final, Complete NO GROWTH AFTER 5 DAYS Review of Systems Constitutional: yes: weakness, alert, oriented, other Ears/Nose/Throat: Yes: no symptom reported Eyes: Yes: no symptom reported Pulmonary: Yes dyspnea Cardiovascular: Yes no symptom reported Genitourinary: Yes: no symptom reported Musculoskeletal: Yes: no symptom reported Skin: Yes no symptom reported Psychiatric/Neurological: Yes: no symptom reported Endocrine: Yes: no symptom reported Physical Exam HEENT: Neck Supple W Full Motion Chest: Symmetric LUNGS: Other (NC) Heart: RRR (SR), other (distant heart tones ) Abdomen: Other (obese) Extremities: Other (1+ bilateral LE edema ) Neurology: alert, oriented, follow commands Assessment Assessment 1. Acute respiratory failure with a/c CHF, AECOPD, and CAD; s/p extubation, doing well. 2. Acute on chronic combined diastolic/systolic CHF; better compensated. 3. Abdominal pain, nausea; improved 4. NSTEMI, 3VD CAD; s/p PCI/SEAN to ostial LAD and distal left main with PTCA to proximal LAD ISR. 5. Ischemic cardiomyopathy; Echo showed LVEF 45-50% 6. Diabetes, II; uncontrolled. as per im 8. HTN: now controlled with addition of isosorbide 9. Hyperlipidemia; statin therapy 10. AVIVA on CKD; Cr stable 11. Dysphagia; now Dysphagia II diet 12. Hypokalemia, hypomagnesemia; replaced Recommendations Secondary prevention including DAPT with ASA/prasugrel Continue high-dose statin and metoprolol. Lasix therapy Replace lytes as warranted Supportive care Justicifation of Admission Dx: Justifications for Admission: Justification of Admission Dx: N/A SHARYN BARFIELD MD 05/25/20 2327: CARDIO Progress Notes Plan Plan Pt. seen and examined. 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 Supportive care. Rehab placement pending. Thanks MARLEEN MCGREGOR APRN May 25, 2020 12:47 SHARYN BARFIELD MD May 25, 2020 23:27
[2020-05-25 14:41] VITALS: BP 119/54
[2020-05-25] MEDS ORDERED: TEMAZEPAM 15 MG CAPSULE PO PRN (18:15)
[2020-05-25 19:00] VITALS: BP 96/46
[2020-05-25] MEDS: ATORVASTATIN CALCIUM 40 MG TABLET. PO SCH (20:50)
[2020-05-25] MEDS: carBAMazepine 200 MG TABLET PO SCH (20:52)
[2020-05-25] MEDS: INSULIN GLARGINE SYRINGE. SQ SCH (20:53)
[2020-05-25 22:46] VITALS: BP 112/44
[2020-05-26] MEDS: fentaNYL PF VIAL 100 MCG/2 ML VIAL IVP PRN (03:09)
[2020-05-26 03:25] VITALS: BP 109/46
[2020-05-26 07:00] VITALS: BP 124/53
[2020-05-26 07:06] LABS: CALCIUM 8.1 mg/dL (8.5-10.1); GFR 54.2
[2020-05-26] MEDS: BUDESONIDE 0.5 MG/2 ML NEBU. NEB SCH (07:14)
[2020-05-26] MEDS: IPRATRPIUM/ALBUTEROL 0.5/2.5MG 3 ML NEBU. NEB SCH ×2 (07:14→13:19)
[2020-05-26] MEDS ORDERED: POTASSIUM CHLORIDE 20 MEQ TABLET.ER. PO ONE (08:45)
[2020-05-26] MEDS: buPROPion XL 150 MG TAB.ER.24H. PO SCH (08:48)
[2020-05-26] MEDS: SPIRONOLACTONE 25 MG TABLET PO SCH (08:48)
[2020-05-26] MEDS: PRASUGREL 10 MG TABLET. PO SCH (08:48)
[2020-05-26] MEDS: VANCOMYCIN 125 MG/2.5 ML ORAL SOLUTION. PO SCH ×2 (08:48→12:26)
[2020-05-26] MEDS: ARIPiprazole 2 MG TABLET PO SCH (08:48)
[2020-05-26] MEDS: ASPIRIN CHEWABLE 81 MG TABLET. PO SCH (08:48)
[2020-05-26] MEDS: POTASSIUM BICARB 20 MEQ EFFERVESCENT TABLET. PO SCH (08:48)
[2020-05-26] MEDS: LANSOPRAZOLE 30 MG TAB.RAP.DR FT SCH (08:48)
[2020-05-26] MEDS: FUROSEMIDE 40 MG TABLET. PO SCH (08:49)
[2020-05-26] MEDS: METOPROLOL TART IMMED RELEASE 25 MG TABLET. PO SCH (08:49)
[2020-05-26] MEDS: ASCORBIC ACID 500 MG TABLET PO SCH (08:49)
[2020-05-26] MEDS: POLYETHYLENE GLYCOL 3350 17 GM PACKET. PO SCH (08:50)
[2020-05-26] MEDS: DOCUSATE SODIUM 100 MG CAPSULE. PO SCH (08:50)
[2020-05-26] MEDS: ISOSORBIDE MONONITRATE 20 MG TABLET PO SCH (08:52)
[2020-05-26] MEDS: INSULIN LISPRO 300 UNITS/3 ML VIAL. SQ SCH ×4 (08:59→12:38)
--- NOTE | 2020-05-26 09:25 | PDOC ---
[facility] PROGRESS NOTE Date of Service DOS: DATE: 05/26/20 TIME: 09:11 Chief Complaint Chief Complaint A/P: Sepsis, severe sepsis, shock Acute hypoxemic respiratory failure, on COPD and ARIANNA currently on BiPAP, intubated. Extubated 05/20/2020 Severe triple-vessel disease status post LAD stent. Patient poor prognosis and poor surgical candidate for CABG COVID risk, pt initial swab is negative acute acidosis on CKD 4, renal failure, DKA, acute acidosis with hyperosmolar syndrome, weaned off of insulin drip troponinemia, NSTEMI 2, demand, obese, BMI 39, some pickwickian habitus Diarrhea - check for c. difficile Chronic abdominal hernia, with abdominal pain History of Present Illness History of Present Illness Ms Alberto is a 74 yo F w/ PMHx CAD and stents admitted for sudden onset chest pain while walking her dog. Noted with mid chest pain with tightness. Came by EMS, noted hypoxic to mid 80's in the ER. CT angio done for pain, showed large amt of stool. No PE. Admitted on broad spectrum antibiotics and for NSTEMI. 05/17: No acute events overnight. Patient remains afebrile. Intubated after she could not tolerate BiPAP 05/18: No acute events overnight. T-max of 99.8. Patient was intubated yesterday current ventilator settings of 18/500/80%/6. Potassium 2.[address] with 100 mEq of IV potassium. pH 7.51, PCO2 31, PO2 260, HCO3 24. 05/19: No acute events overnight. Status post left heart cath: Severe three- vessel coronary artery disease with culprit lesion involving the LAD with balloon angioplasty of the proximal LAD in-stent restenosis & PCI of the ostial LAD. On vent 05/20: No acute events overnight. Patient currently on minimal vent settings. We will remove femoral sheath today after holding heparin drip. Extubation today. 05/21: No acute events overnight. Patient currently tolerating on Venturi mask for 12 L saturating 98%. Potassium 2.1 will replace with IV potassium as needed. 05/22: No acute events overnight. Saturating 92% on 4 L nasal cannula. Patient remains chest pain-free. Hypokalemia today at 3.0, needing IV potassium replacement. Pending speech evaluation. 05/23: No acute events overnight. Patient had NG tube Dobbhoff placed yesterday for failing speech swallow. Will start trickle feeds. Patient's chart, labs, images were reviewed and discussed with RN 05/24: Afebrile. 60 cc residual tube feeds this morning despite rarely more than that would be given. Tube feeds on hold. She complains of sore throat. Still with rectal tube in place. Still on 3 L nasal cannula oxygen. K3.2. 05/25: NGT out. Taking PO now. Still with loose stools, WBC up to 23K. Glucose in 300s. Afebrile. Taking p.o. C. difficile positive on oral vancomycin. Wants nicole catheter out. Eating pudding well. Vitals/I&O Vitals/I&O: Vital Signs Date Time Temp Pulse Resp B/P (MAP) Pulse Ox O2 Delivery O2 Flow Rate FiO2 05/26/20 07:16 Nasal Cannula 3.0 05/26/20 07:00 98.4 76 21 124/53 (76) 96 98.4 I & O 05/25/20 05/25/20 05/26/20 15:00 23:00 07:00 Intake Total 240 ml 1660 ml Output Total 850 ml 350 ml Balance -610 ml 1310 ml Physical Exam Physical Exam: GENERAL: awake looks comfortable HEENT: Both pupils are round and reacting. No conjunctival lesion. No lesion in the mouth. NECK: Supple. No JVP. No lymphadenopathy. LUNGS: Clear. HEART: S1, S2 regular. ABDOMEN: Benign. Dobhoff : nicole EXTREMITIES: No edema or cyanosis. SKIN: Unremarkable. NEUROLOGIC: Alert and coop IV: clean IJ General: Alert, Cooperative Heart: Regular rate Lungs: Clear Abdomen: Normal bowel sounds Extremities: No cyanosis, No edema Skin: No rashes Labs Labs: Laboratory Tests Test 05/25/20 11:01 05/25/20 16:37 05/25/20 20:39 05/26/20 06:10 Glucose (Fingerstick) 367 mg/dL (70-99) 313 mg/dL (70-99) 235 mg/dL (70-99) Magnesium Level 1.9 mg/dL (1.8-2.4) Test 05/26/20 06:40 05/26/20 06:51 Sodium Level 138 mmol/L (136-145) Potassium Level 3.0 mmol/L (3.5-5.1) Chloride Level 101 mmol/L (98-107) Carbon Dioxide Level 31 mmol/L (21-32) Anion Gap 6 (6-14) Blood Urea Nitrogen 19 mg/dL (7-20) Creatinine 1.0 mg/dL (0.6-1.0) Estimated GFR (Cockcroft-Gault) 54.2 Glucose Level 155 mg/dL (70-99) Calcium Level 8.1 mg/dL (8.5-10.1) Glucose (Fingerstick) 166 mg/dL (70-99) Comment Review of Relevant I have reviewed the following items danisha (where applicable) has been applied. Medications: Current Medications Medications (Trade) Dose Ordered Sig/Morgan Route PRN Reason Start Time Stop Time Status Last Admin Dose Admin Insulin Human Lispro (HumaLOG) 8 units TIDWMEALS SQ 05/25/20 12:00 05/25/20 17:25 Potassium Bicarbonate (Potassium Effervescent Tablet) 20 meq 1X ONCE PO 05/25/20 10:15 05/25/20 10:19 DC 05/25/20 10:58 Temazepam (Restoril) 15 mg PRN QHS PRN PO INSOMNIA 05/25/20 18:15 05/25/20 20:52 Justifications for Admission Other Justification LISA DELA CRUZ MD May 26, 2020 09:25
--- NOTE | 2020-05-26 09:27 | PDOC ---
Infectious Disease Note Subjective Subjective pt is feeling better pt is having diarrhea ROS ROS No abdominal cramping Shortness of breath or fever Vital Sign Vital Signs Vital Signs Date Time Temp Pulse Resp B/P (MAP) Pulse Ox O2 Delivery O2 Flow Rate FiO2 05/26/20 07:16 Nasal Cannula 3.0 05/26/20 07:00 98.4 76 21 124/53 (76) 96 98.4 Physical Exam PHYSICAL EXAM GENERAL: awake looks comfortable HEENT: Both pupils are round and reacting. No conjunctival lesion. No lesion in the mouth. NECK: Supple. No JVP. No lymphadenopathy. LUNGS: Clear. HEART: S1, S2 regular. ABDOMEN: Benign. Dobhoff : nicole EXTREMITIES: No edema or cyanosis. SKIN: Unremarkable. NEUROLOGIC: Alert and coop IV: clean IJ Labs Lab Laboratory Tests Test 05/25/20 11:01 05/25/20 16:37 05/25/20 20:39 05/26/20 06:10 Glucose (Fingerstick) 367 mg/dL (70-99) 313 mg/dL (70-99) 235 mg/dL (70-99) Magnesium Level 1.9 mg/dL (1.8-2.4) Test 05/26/20 06:40 05/26/20 06:51 Sodium Level 138 mmol/L (136-145) Potassium Level 3.0 mmol/L (3.5-5.1) Chloride Level 101 mmol/L (98-107) Carbon Dioxide Level 31 mmol/L (21-32) Anion Gap 6 (6-14) Blood Urea Nitrogen 19 mg/dL (7-20) Creatinine 1.0 mg/dL (0.6-1.0) Estimated GFR (Cockcroft-Gault) 54.2 Glucose Level 155 mg/dL (70-99) Calcium Level 8.1 mg/dL (8.5-10.1) Glucose (Fingerstick) 166 mg/dL (70-99) Micro Microbiology 05/15/20 Blood Culture - Preliminary, Resulted NO GROWTH AFTER 1 DAY Objective Assessment IMPRESSION: 1. Respiratory failure. 2. Coronary artery disease with acute myocardial infarction. 3. Pulmonary infiltrate, pneumonia versus congestive heart failure. 4. Chronic obstructive pulmonary disease exacerbation. 5. Acute kidney injury. 6. Hypertension. 7. Leukocytosis. 8 CAD s/p angioplasty 9 C. difficile positive Plan Plan of Care po vanc for 10 days Okay to DC to nursing facility D/w nursing MASSIMO MIRELES MD May 26, 2020 09:27
--- NOTE | 2020-05-26 09:28 | PDOC3 ---
Discharge Summary Visit Information Date of Admission: May 14, 2020 Date of Discharge: May 26, 2020 Admitting Diagnosis: NSTEMI Final Diagnosis NSTEMI Brief Hospital Course Allergies Allergies Coded Allergies Type Severity Reaction Last Updated Verified grapefruit Allergy Intermediate 01/04/18 Yes hydromorphone Allergy Intermediate 01/04/18 Yes metoclopramide Allergy Intermediate 01/04/18 Yes morphine Allergy Intermediate BROKE OUT WITH RASH 01/04/18 Yes phenytoin Allergy Intermediate 01/04/18 Yes temazepam Allergy Intermediate 01/04/18 Yes trazodone Allergy Intermediate 01/04/18 Yes zolpidem Allergy Intermediate 01/04/18 Yes I S O L A T I O N *CONTACT* Allergy Unknown 11/11/18 Yes Vital Signs Vital Signs Date Time Temp Pulse Resp B/P (MAP) Pulse Ox O2 Delivery O2 Flow Rate FiO2 05/26/20 07:16 Nasal Cannula 3.0 05/26/20 07:00 98.4 76 21 124/53 (76) 96 98.4 Lab Results Laboratory Tests Test 05/24/20 11:49 05/24/20 17:01 05/24/20 20:07 05/25/20 05:05 Glucose (Fingerstick) 301 mg/dL (70-99) 319 mg/dL (70-99) 438 mg/dL (70-99) White Blood Count 23.3 x10^3/uL (4.0-11.0) Red Blood Count 3.32 x10^6/uL (3.50-5.40) Hemoglobin 9.3 g/dL (12.0-15.5) Hematocrit 29.3 % (36.0-47.0) Mean Corpuscular Volume 88 fL (79-100) Mean Corpuscular Hemoglobin 28 pg (25-35) Mean Corpuscular Hemoglobin Concent 32 g/dL (31-37) Red Cell Distribution Width 17.7 % (11.5-14.5) Platelet Count 358 x10^3/uL (140-400) Neutrophils (%) (Auto) 76 % (31-73) Lymphocytes (%) (Auto) 15 % (24-48) Monocytes (%) (Auto) 8 % (0-9) Eosinophils (%) (Auto) 1 % (0-3) Basophils (%) (Auto) 1 % (0-3) Neutrophils # (Auto) 17.6 x10^3/uL (1.8-7.7) Lymphocytes # (Auto) 3.4 x10^3/uL (1.0-4.8) Monocytes # (Auto) 1.8 x10^3/uL (0.0-1.1) Eosinophils # (Auto) 0.2 x10^3/uL (0.0-0.7) Basophils # (Auto) 0.2 x10^3/uL (0.0-0.2) Sodium Level 138 mmol/L (136-145) Potassium Level 3.4 mmol/L (3.5-5.1) Chloride Level 100 mmol/L (98-107) Carbon Dioxide Level 29 mmol/L (21-32) Anion Gap 9 (6-14) Blood Urea Nitrogen 27 mg/dL (7-20) Creatinine 1.3 mg/dL (0.6-1.0) Estimated GFR (Cockcroft-Gault) 40.0 Glucose Level 405 mg/dL (70-99) Calcium Level 8.4 mg/dL (8.5-10.1) Magnesium Level 1.7 mg/dL (1.8-2.4) Test 05/25/20 06:53 05/25/20 08:30 05/25/20 11:01 05/25/20 16:37 Glucose (Fingerstick) 375 mg/dL (70-99) 367 mg/dL (70-99) 313 mg/dL (70-99) Clostridium difficile Toxin (PCR) Positive (NEGATIVE) Test 05/25/20 20:39 05/26/20 06:10 05/26/20 06:40 05/26/20 06:51 Glucose (Fingerstick) 235 mg/dL (70-99) 166 mg/dL (70-99) Magnesium Level 1.9 mg/dL (1.8-2.4) Sodium Level 138 mmol/L (136-145) Potassium Level 3.0 mmol/L (3.5-5.1) Chloride Level 101 mmol/L (98-107) Carbon Dioxide Level 31 mmol/L (21-32) Anion Gap 6 (6-14) Blood Urea Nitrogen 19 mg/dL (7-20) Creatinine 1.0 mg/dL (0.6-1.0) Estimated GFR (Cockcroft-Gault) 54.2 Glucose Level 155 mg/dL (70-99) Calcium Level 8.1 mg/dL (8.5-10.1) Laboratory Tests Test 05/25/20 11:01 05/25/20 16:37 05/25/20 20:39 05/26/20 06:10 Glucose (Fingerstick) 367 mg/dL (70-99) 313 mg/dL (70-99) 235 mg/dL (70-99) Magnesium Level 1.9 mg/dL (1.8-2.4) Test 05/26/20 06:40 05/26/20 06:51 Sodium Level 138 mmol/L (136-145) Potassium Level 3.0 mmol/L (3.5-5.1) Chloride Level 101 mmol/L (98-107) Carbon Dioxide Level 31 mmol/L (21-32) Anion Gap 6 (6-14) Blood Urea Nitrogen 19 mg/dL (7-20) Creatinine 1.0 mg/dL (0.6-1.0) Estimated GFR (Cockcroft-Gault) 54.2 Glucose Level 155 mg/dL (70-99) Calcium Level 8.1 mg/dL (8.5-10.1) Glucose (Fingerstick) 166 mg/dL (70-99) Brief Hospital Course Ms Alberto is a 74 yo F w/ PMHx CAD and stents admitted for sudden onset chest pain while walking her dog. Noted with mid chest pain with tightness. Came by EMS, noted hypoxic to mid 80's in the ER. CT angio done for pain, showed large amt of stool. No PE. Admitted on broad spectrum antibiotics and for NSTEMI. 05/17: No acute events overnight. Patient remains afebrile. Intubated after she could not tolerate BiPAP 05/18: No acute events overnight. T-max of 99.8. Patient was intubated yesterday current ventilator settings of 18/500/80%/6. Potassium 2.9 today replace with 100 mEq of IV potassium. pH 7.51, PCO2 31, PO2 260, HCO3 24. 05/19: No acute events overnight. Status post left heart cath: Severe three- vessel coronary artery disease with culprit lesion involving the LAD with balloon angioplasty of the proximal LAD in-stent restenosis & PCI of the ostial LAD. On vent 05/20: No acute events overnight. Patient currently on minimal vent settings. We will remove femoral sheath today after holding heparin drip. Extubation today. 05/21: No acute events overnight. Patient currently tolerating on Venturi mask for 12 L saturating 98%. Potassium 2.1 will replace with IV potassium as needed. 05/22: No acute events overnight. Saturating 92% on 4 L nasal cannula. Patient remains chest pain-free. Hypokalemia today at 3.0, needing IV potassium replacement. Pending speech evaluation. 05/23: No acute events overnight. Patient had NG tube Dobbhoff placed yesterday for failing speech swallow. Will start trickle feeds. Patient's chart, labs, images were reviewed and discussed with RN 05/24: Afebrile. 60 cc residual tube feeds this morning despite rarely more than that would be given. Tube feeds on hold. She complains of sore throat. Still with rectal tube in place. Still on 3 L nasal cannula oxygen. K3.2. 2: NGT out. Taking PO now. Still with loose stools, WBC up to 23K. Glucose in 300s. Afebrile. Taking p.o. C. difficile positive on oral vancomycin. Wants nicole catheter out. Eating pudding well. Consults: cardiology, pulmonology, ID Problem list: Sepsis, severe sepsis, shock Acute hypoxemic respiratory failure, on COPD and ARIANNA currently on BiPAP, intubated. Extubated 05/20/2020 Severe triple-vessel disease status post LAD stent. Patient poor prognosis and poor surgical candidate for CABG COVID risk, pt initial swab is negative acute acidosis on CKD 4, renal failure, DKA, acute acidosis with hyperosmolar syndrome, weaned off of insulin drip troponinemia, NSTEMI 2, demand, obese, BMI 39, some pickwickian habitus Diarrhea - positive for c. difficile Chronic abdominal hernia, with abdominal pain Greatert lema 30 minutes spent on d/c to [facility] rehab Discharge Information Condition at Discharge: Improved Follow Up: Weeks (1) Disposition/Orders: D/C to Another Facility Scheduled Aripiprazole (Abilify) 2 Mg Tablet, 2 MG PO DAILY, (Reported) Entered as Reported by: TAMIA SOLIS RPH on 11/30/18 1233 Last Action: Continued on 05/16/20 0959 by TANNER COMER Ascorbic Acid (Ascorbic Acid) 500 Mg Tablet, 500 MG PO BID, (Reported) Entered as Reported by: ELIZA CABALLERO on 06/25/171948 Last Action: Continued on 05/16/20 0959 by TANNER COMER Aspirin (Aspir 81) 81 Mg Tablet.dr, 81 MG PO DAILY, (Reported) Entered as Reported by: LORIE CARTER on 09/03/13 1315 Last Action: Continued on 05/16/20 0958 by TANNER COMER Atorvastatin Calcium (Atorvastatin Calcium) 40 Mg Tablet, 80 MG PO QHS for lipids, #60 Prescribed by: WALDEMAR COE on 12/02/18 1124 Last Action: Continued on 05/16/20 0959 by TANNER COMER Bupropion Hcl (Bupropion Xl) 150 Mg Tab.er.24h, 150 MG PO BID for unk, (Reported) Entered as Reported by: GABY CEDILLO on 04/24/19 1105 Last Action: Continued on 05/16/20 0959 by TANNER COMER Buspirone Hcl (Buspirone Hcl) 15 Mg Tablet, 15 MG PO TID, (Reported) Entered as Reported by: TAMIA SOLIS [facility] on 11/30/18 1233 Carbamazepine (Tegretol) 200 Mg Tablet, 200 MG PO QHS, (Reported) Entered as Reported by: TAMIA SOLIS [facility] on 11/08/18 1647 Last Action: Continued on 05/16/20 0959 by TANNER COMER Cetirizine Hcl (Zyrtec) 10 Mg Tablet, 1 TAB PO DAILY, #30 Ref 2 (Reported) Entered as Reported by: HAKAN GABRIEL on 01/04/18 0743 Cholecalciferol (Vitamin D3) (Vitamin D) 1,000 Unit Capsule, 1 CAP PO DAILY, #30 Ref 3 (Reported) Entered as Reported by: ELIZA CABALLERO on 06/25/171948 Cyanocobalamin (Vitamin B-12) (Vitamin B-12) 1,000 Mcg Tablet, 1 TAB PO DAILY, #30 Ref 2 (Reported) Entered as Reported by: ELIZA CABALLERO on 06/25/171948 Diclofenac Sodium (Voltaren) 100 Gm Gel..gram., 100 GM TP QID, (Reported) Entered as Reported by: CONSTANTINO BURGOS on 02/02/15 0724 Duloxetine Hcl (Cymbalta) 60 Mg Capsule.dr, 120 MG PO DAILY, (Reported) Entered as Reported by: KIRILL YAÑEZ on 01/08/18 0021 Fluticasone Propionate (Flonase Allergy Relief) 9.9 Ml [place].susp, 2 SPR NS DAILY, (Reported) Entered as Reported by: GERI BONILLA on 02/01/15 1718 Furosemide (Furosemide) 20 Mg Tablet, 1 TAB PO DAILY for unk, #90 Ref 1 (Reported) Entered as Reported by: GABY CEDILLO on 04/24/19 1105 Last Action: HELD on 05/16/20958 by TANNER COMER Insulin Aspart (Novolog) 100 Unit/1 Ml Cartridge, 6 UNIT SQ TIDAC for diabetes, (Reported) Entered as Reported by: LORIE CARTER on 09/03/13 1315 Last Action: Converted on 05/24/20 1401 by LISA DELA CRUZ MD Insulin Detemir (Levemir Flextouch) 100 Unit/1 Ml Insuln.pen, 36 UNIT SQ BID for diabetes, (Reported) Entered as Reported by: CONSTANTINO BURGOS on 02/02/15 0724 Ipratropium/Albuterol Sulfate (Duoneb 0.5-3(2.5) Mg/3 Ml) 3 Ml Ampul.neb, 3 ML NEB TID, (Reported) Entered as Reported by: DAVID CLAROS on 12/14/17 1838 Last Action: Continued on 05/16/20958 by TANNER COMER Lisinopril (Lisinopril) 5 Mg Tablet, 1 TAB PO DAILY, #30 Ref 5 (Reported) Entered as Reported by: ELIZA CABALLERO on 06/25/17 1949 Last Action: HELD on 05/16/20958 by TANNER COMER Metoprolol Succinate (Metoprolol Succinate ( Xl )) 25 Mg Tab.er.24h, 12.5 MG PO DAILY for FOR HYPERTENSION, #30 Ref 0 (Reported) Entered as Reported by: TAMIA SOLIS RP on 11/08/18 1647 Last Action: Continued on 05/16/20958 by TANNER COMER Mirtazapine (Mirtazapine) 15 Mg Tablet, 30 MG PO QHS, #30 Ref 3 (Reported) Entered as Reported by: ELIZA CABALLERO on 06/25/171948 Montelukast Sodium (Montelukast Sodium Tablet ) 10 Mg Tablet, 10 MG PO HS for FOR ASTHMA, Ref 0 (Reported) Entered as Reported by: GABY CEDILLO on 04/24/19 1105 Multivitamin (Multivitamins) 1 Each Tablet, 1 TAB PO DAILY, #90 Ref 3 (Reported) Entered as Reported by: ELIZA CABALLERO on 06/25/171948 Naproxen (Naproxen) 500 Mg Tablet, 1 TAB PO BID for pain for 30 Days, #60 Ref 0 (Reported) Entered as Reported by: GABY CEDILLO on 04/24/19 110 Nortriptyline Hcl (Nortriptyline Hcl) 25 Mg Capsule, 50 MG PO HS, (Reported) Entered as Reported by: DAVID CLAROS on 12/14/17 183 [place]-3 Fatty Acids/Fish Oil (Fish Oil 1,000 Mg Capsule) 1 Each Capsule, 1 EACH PO TID, (Reported) Entered as Reported by: KIRILL YAÑEZ on 01/08/18 0021 Pantoprazole Sodium (Protonix) 20 Mg Tablet.dr, 40 MG PO DAILY, (Reported) Entered as Reported by: DAVID CLAROS on 12/14/171837 Prasugrel Hcl (Effient) 10 Mg Tablet, 10 MG PO DAILYWBKFT for Stents for 30 Days, #30 Prescribed by: SHADIA NOBLES on 06/10/19 1150 Last Action: Continued on 05/16/20 0959 by TANNER COMER Ranitidine Hcl (Ranitidine Hcl) 150 Mg Capsule, 150 MG PO DAILY for gerd, (Re ported) Entered as Reported by: GABY CEDILLO on 04/24/19 110 Ropinirole Hcl (Ropinirole Hcl) 1 Mg Tablet, 1 MG PO QHS, (Reported) Entered as Reported by: LORIE CARTER on 09/03/13 1315 Spironolactone (Spironolactone) 25 Mg Tablet, 1 TAB PO DAILY for unk, #90 Ref 1 (Reported) Entered as Reported by: GABY CEDILLO on 04/24/19 1105 Last Action: Continued on 05/24/20 1401 by LISA DELA CRUZ MD Zonisamide (Zonisamide) 100 Mg Capsule, 100 MG PO TID, (Reported) Entered as Reported by: DAVID CLAROS on 12/14/17 1838 Scheduled PRN Clonazepam (Klonopin) 0.5 Mg Tablet, 0.5 MG PO PRN BID PRN for ANXIETY / AGITATION, (Reported) Entered as Reported by: KIRILL YAÑEZ on 01/08/18 0021 Last Action: HELD on 05/16/20 0959 by TANNER COMER Cyclobenzaprine Hcl (Cyclobenzaprine Hcl) 5 Mg Tablet, 5 MG PO TID PRN for spasms, (Reported) Entered as Reported by: GABY CEDILLO on 04/24/19 1105 Tramadol Hcl (Tramadol Hcl) 50 Mg Tablet, 50 MG PO Q4HRS PRN for PAIN, (Reported) Entered as Reported by: GABY CEDILLO on 04/24/19 110 Miscellaneous Medications Loperamide Hcl (Loperamide) 2 Mg Capsule, 2 MG PO, (Reported) Entered as Reported by: HAKAN GABRIEL on 01/04/18 0743 Justicifation of Admission Dx: Justifications for Admission: Justification of Admission Dx: N/A LISA DELA CRUZ MD May 26, 2020 09:27
[2020-05-26] MEDS ORDERED: METO25TA4 PO (09:35)
[2020-05-26] MEDS ORDERED: ASPI-630 PO (09:35)
[2020-05-26] MEDS ORDERED: VANC500V PO (09:35)
[2020-05-26] MEDS ORDERED: ISOS20TA6 PO (09:35)
[2020-05-26] MEDS ORDERED: POTA20TA40 PO (09:35)
[2020-05-26] MEDS ORDERED: TRAM50TA PO (09:35)
--- NOTE | 2020-05-26 09:39 | SNU/HH DC ---
DISCHARGE ORDERS DISCHARGE INFORMATION: DISCHARGE DATE: May 26, 2020 FINAL DIAGNOSIS NSTEMI CONDITION ON DISCHARGE: Stable CODE STATUS: Code Status: Full CARE HOME: SNF STAY <30 DAYS: Yes POST DISCHARGE ORDERS: ACTIVITY ORDERS: Activity as tolerated WEIGHT BEARING STATUS: As tolerated BATHING ORDERS: Shower-keep dressing dry DIET AFTER DISCHARGE: Cardiac WOUND/INCISION CARE: No wound care needed CHECKS AFTER DISCHARGE: CHECKS AFTER DISCHARGE: Check blood press - daily, Check blood sugar, ac/hs, Check your Temp as needed FOLLOW-UP: PHYSICIAN FOLLOW-UP: Cardiology - Dr. Blake Price - call to schedule TREATMENT/EQUIPMENT ORDERS: ADAPTIVE EQUIPMENT NEEDED: Walker RESPIRATORY EQUIPMENT NEEDED: Oxygen, Nebulizer Physical Therapy For: Evalulation/Treatment Occupational Therapy For: Evaluation/Treatment Speech Language Pathology For: Evaluation/Treatment DISCHARGE MEDICATIONS: Home Meds Active Scripts Potassium Bicarbonate/Cit Ac (EFFER-K 20 MEQ TABLET EFF) 20 Meq Tablet.eff, 20 MEQ PO DAILY for Hypokalemia for 30 Days, #30 TAB Prov:LISA DELA CRUZ MD 05/26/20 Aspirin (ASPIRIN) 81 Mg Tab.chew, 81 MG PO DAILYWBKFT for CAD MDD ` for 90 Days, #90 TAB.CHEW 3 Refills Prov:LISA DELA CRUZ MD 05/26/20 Metoprolol Tartrate (METOPROLOL TARTRATE) 25 Mg Tablet, 25 MG PO BID for CAD for 30 Days, #60 TAB 2 Refills Prov:LISA DELA CRUZ MD 05/26/20 Isosorbide Mononitrate (ISOSORBIDE MONONITRATE) 20 Mg Tablet, 20 MG PO [id number] for HTN, CHF for 30 Days, #60 TAB Prov:LISA DELA CRUZ MD 05/26/20 Vancomycin Hcl (VANCOMYCIN HCL) 500 Mg Vial, 125 MG PO [id number] for C. difficile diarrhea for 10 Days, #40 EACH Prov:LISA DELA CRUZ MD 05/26/20 Tramadol Hcl (TRAMADOL HCL) 50 Mg Tablet, 50 MG PO PRN Q6HRS PRN for PAIN for 6 Days, #24 TAB Prov:LISA DELA CRUZ MD 05/26/20 Prasugrel Hcl (EFFIENT) 10 Mg Tablet, 10 MG PO DAILYWBKFT for Stents for 30 Days, #30 TAB Prov:CASTLE,NIAL K III DO 06/10/19 Atorvastatin Calcium (ATORVASTATIN CALCIUM) 40 Mg Tablet, 80 MG PO QHS for lipids, #60 TAB Prov:WALDEMAR COE MD 12/02/18 Reported Medications Furosemide (FUROSEMIDE) 20 Mg Tablet, 1 TAB PO DAILY for unk, #90 TAB 1 Refill 04/24/19 Bupropion Hcl (BUPROPION XL) 150 Mg Tab.er.24h, 150 MG PO BID for unk, TAB.SR 04/24/19 Montelukast Sodium (MONTELUKAST SODIUM TABLET ) 10 Mg Tablet, 10 MG PO HS for FOR ASTHMA, TAB 0 Refills 04/24/19 Spironolactone (SPIRONOLACTONE) 25 Mg Tablet, 1 TAB PO DAILY for unk, #90 TAB 1 Refill 04/24/19 Ranitidine Hcl (RANITIDINE HCL) 150 Mg Capsule, 150 MG PO DAILY for gerd, TAB 04/24/19 Aripiprazole (ABILIFY) 2 Mg Tablet, 2 MG PO DAILY, TAB 11/30/18 Buspirone Hcl (BUSPIRONE HCL) 15 Mg Tablet, 15 MG PO TID, TAB 11/30/18 Carbamazepine (TEGRETOL) 200 Mg Tablet, 200 MG PO QHS, TAB 11/08/18 Clonazepam (KLONOPIN) 0.5 Mg Tablet, 0.5 MG PO PRN BID PRN for ANXIETY / AGITATION, TAB 01/08/18 [place]-3 Fatty Acids/Fish Oil (FISH OIL 1,000 MG CAPSULE) 1 Each Capsule, 1 EACH PO TID, CAP 01/08/18 Duloxetine Hcl (CYMBALTA) 60 Mg Capsule.dr, 120 MG PO DAILY, CAP 01/08/18 Cetirizine Hcl (ZYRTEC) 10 Mg Tablet, 1 TAB PO DAILY, #30 TAB 2 Refills 01/04/18 Zonisamide (ZONISAMIDE) 100 Mg Capsule, 100 MG PO TID, CAP 12/14/17 Pantoprazole Sodium (PROTONIX) 20 Mg Tablet.dr, 40 MG PO DAILY, TAB 12/14/17 Nortriptyline Hcl (NORTRIPTYLINE HCL) 25 Mg Capsule, 50 MG PO HS, CAP 12/14/17 Ipratropium/Albuterol Sulfate (DUONEB 0.5-3(2.5) MG/3 ML) 3 Ml Ampul.neb, 3 ML NEB TID, EACH 12/14/17 Multivitamin (MULTIVITAMINS) 1 Each Tablet, 1 TAB PO DAILY, #90 TAB 3 Refills 06/25/17 Mirtazapine (MIRTAZAPINE) 15 Mg Tablet, 30 MG PO QHS, #30 TAB 3 Refills 06/25/17 Lisinopril (LISINOPRIL) 5 Mg Tablet, 1 TAB PO DAILY, #30 TAB 5 Refills 06/25/17 Cyanocobalamin (Vitamin B-12) (VITAMIN B-12) 1,000 Mcg Tablet, 1 TAB PO DAILY, #30 TAB 2 Refills 06/25/17 Cholecalciferol (Vitamin D3) (VITAMIN D) 1,000 Unit Capsule, 1 CAP PO DAILY, #30 CAP 3 Refills 06/25/17 Ascorbic Acid (ASCORBIC ACID) 500 Mg Tablet, 500 MG PO BID, TAB 06/25/17 Diclofenac Sodium (VOLTAREN) 100 Gm Gel..gram., 100 GM TP QID 02/02/15 Insulin Detemir (Levemir Flextouch) 100 Unit/1 Ml Insuln.pen, 36 UNIT SQ BID for diabetes, SYR 02/02/15 Fluticasone Propionate (Flonase Allergy Relief) 9.9 Ml [place].susp, 2 SPR NS DAILY 02/01/15 Aspirin (ASPIR 81) 81 Mg Tablet.dr, 81 MG PO DAILY, TAB 09/03/13 Ropinirole Hcl (ROPINIROLE HCL) 1 Mg Tablet, 1 MG PO QHS 09/03/13 Insulin Aspart (NOVOLOG) 100 Unit/1 Ml Cartridge, 6 UNIT SQ TIDAC for diabetes 09/03/13 Discontinued Reported Medications Cyclobenzaprine Hcl (CYCLOBENZAPRINE HCL) 5 Mg Tablet, 5 MG PO TID PRN for spasms, TAB 04/24/19 Naproxen (NAPROXEN) 500 Mg Tablet, 1 TAB PO BID for pain for 30 Days, #60 TAB 0 Refills 04/24/19 Metoprolol Succinate (METOPROLOL SUCCINATE ( XL )) 25 Mg Tab.er.24h, 12.5 MG PO DAILY for FOR HYPERTENSION, #30 TAB 0 Refills 11/08/18 Loperamide Hcl (LOPERAMIDE) 2 Mg Capsule, 2 MG PO, CAP 01/04/18 MIKAYLAFEFranny,LISA Sanz MD May 26, 2020 09:39
[2020-05-26 10:31] VITALS: BP 130/54
--- NOTE | 2020-05-26 10:43 | PDOC ---
CARDIO Progress Notes Date and Time Date of Service 05/26/20 Time of Evaluation 1020 Subjective Subjective: No Chest Pain, No shortness of breath, No Palpitations, Other (having diarrhea ) Vitals Vitals Vital Signs Date Time Temp Pulse Resp B/P (MAP) Pulse Ox O2 Delivery O2 Flow Rate FiO2 05/26/20 08:52 76 124/53 05/26/20 08:00 Nasal Cannula 3.0 05/26/20 07:00 98.4 21 96 98.4 Weight Weight [ ] Input and Output Intake and Output Intake and Output 05/26/20 07:00 Intake Total 1900 ml Output Total 1200 ml Balance 700 ml Intake Oral 1900 ml Output Urine Total 1200 ml # Bowel Movements 5 Laboratory Labs Laboratory Tests Test 05/25/20 11:01 05/25/20 16:37 05/25/20 20:39 05/26/20 06:10 Glucose (Fingerstick) 367 mg/dL (70-99) 313 mg/dL (70-99) 235 mg/dL (70-99) Magnesium Level 1.9 mg/dL (1.8-2.4) Test 05/26/20 06:40 05/26/20 06:51 Sodium Level 138 mmol/L (136-145) Potassium Level 3.0 mmol/L (3.5-5.1) Chloride Level 101 mmol/L (98-107) Carbon Dioxide Level 31 mmol/L (21-32) Anion Gap 6 (6-14) Blood Urea Nitrogen 19 mg/dL (7-20) Creatinine 1.0 mg/dL (0.6-1.0) Estimated GFR (Cockcroft-Gault) 54.2 Glucose Level 155 mg/dL (70-99) Calcium Level 8.1 mg/dL (8.5-10.1) Glucose (Fingerstick) 166 mg/dL (70-99) Microbiology Micro Microbiology 05/15/20 Blood Culture - Final, Complete NO GROWTH AFTER 5 DAYS Review of Systems Constitutional: yes: weakness, alert, oriented, other Ears/Nose/Throat: Yes: no symptom reported Eyes: Yes: no symptom reported Pulmonary: Yes dyspnea Cardiovascular: Yes no symptom reported Genitourinary: Yes: no symptom reported Musculoskeletal: Yes: no symptom reported Skin: Yes no symptom reported Psychiatric/Neurological: Yes: no symptom reported Endocrine: Yes: no symptom reported Physical Exam HEENT: Neck Supple W Full Motion Chest: Symmetric LUNGS: Other (NC) Heart: RRR (SR), other (distant heart tones ) Abdomen: Other (soft, obese) Extremities: Other (1+ bilateral LE edema ) Neurology: alert, oriented, follow commands Assessment Assessment 1. Acute respiratory failure with a/c CHF, AECOPD, and CAD; s/p extubation, doing well. 2. Acute on chronic combined diastolic/systolic CHF; better compensated. 3. Abdominal pain, nausea; improved 4. NSTEMI, 3VD CAD; s/p PCI/SEAN to ostial LAD and distal left main with PTCA to proximal LAD ISR. 5. Ischemic cardiomyopathy; Echo showed LVEF 45-50% 6. Diabetes, II; uncontrolled. as per im 8. HTN: now controlled with addition of isosorbide 9. Hyperlipidemia; statin therapy 10. AVIVA on CKD; Cr stable 11. Dysphagia; now Dysphagia II diet 12. Hypokalemia, hypomagnesemia; replaced 13. Cdiff + Recommendations Secondary prevention including DAPT with ASA/prasugrel and high dose statin therapy HF optimization with BB, ACEi, Lasix, and spironolactone Okay to transfer to rehab Follow up in our office with Dr. Price as scheduled. Supportive care Justicifation of Admission Dx: Justifications for Admission: Justification of Admission Dx: N/A MARLEEN MCGREGOR APRN May 26, 2020 10:43
[2020-05-26 10:45] LABS: BASO % 0 % (0-3); EOS # 0.4 x10^3/uL (0.0-0.7); EOS % 3 % (0-3); HEMATOCRIT 28.1 % (36.0-47.0); HEMOGLOBIN 8.8 g/dL (12.0-15.5); LYMPH # 3.3 x10^3/uL (1.0-4.8); LYMPH % 23 % (24-48); MEAN CORPUSCULAR HEMOGLOBIN 28 pg (25-35); MEAN CORPUSCULAR HGB CONC 31 g/dL (31-37); MEAN CORPUSCULAR VOLUME 89 fL (79-100); MONO # 1.4 x10^3/uL (0.0-1.1); MONO % 10 % (0-9); NEUT # 9.2 x10^3/uL (1.8-7.7); NEUT % 64 % (31-73); PLATELET COUNT 333 x10^3/uL (140-400); RED BLOOD COUNT 3.15 x10^6/uL (3.50-5.40); RED CELL DISTRIBUTION WIDTH 17.6 % (11.5-14.5); WHITE BLOOD COUNT 14.5 x10^3/uL (4.0-11.0)
--- NOTE | 2020-05-26 12:33 | PDOC ---
DATE OF SERVICE DATE: 05/26/20 TIME: 12:29 SUBJECTIVE ROS Stable OBJECTIVE Vital Signs Vital Signs Date Time Temp Pulse Resp B/P (MAP) Pulse Ox O2 Delivery O2 Flow Rate FiO2 05/26/20 10:31 97.9 80 21 130/54 (79) 97 Nasal Cannula 2.0 97.9 I & 0 Intake and Output 05/26/20 06:59 Intake Total 1900 ml Output Total 1200 ml Balance 700 ml Intake Oral 1900 ml Output Urine Total 1200 ml # Bowel Movements 5 PHYSICAL EXAM Physical Exam GENERAL: NAD HEENT: OM moist NECK: Supple. No JVP. LUNGS: Clear. HEART: S1, S2 regular. ABDOMEN: soft, obese : nicole + EXTREMITIES: No edema or cyanosis. SKIN: Unremarkable. NEUROLOGIC: Alert and coop DIAGNOSIS/ASSESSMENT Assessment & Plan AVIVA- Improved, stable , good UOP Supportive care, avoid nephrotoxins Coronary artery disease with acute myocardial infarction- S/p PTCA CKD Stage 3 - Baseline Cr 1.5, follows with Dr. Shields as OP . Follow up -routine (Non urgent appt) Respiratory failure- Pulmonary infiltrate, pneumonia versus congestive heart failure.Extubated , on O2 by HI Chronic obstructive pulmonary disease exacerbation. Hypertension. Dcing to Rehab COMMENT/RELEVANT DATA Meds Current Medications Medications (Trade) Dose Ordered Sig/Morgan Start Time Stop Time Status Last Admin Dose Admin Acetaminophen (Tylenol) 1,000 mg 1X ONCE 05/14/20 22:30 05/14/20 22:39 DC 05/14/20 23:04 1,000 MG Acetaminophen/ Aspirin/Caffeine (Excedrin Migraine) 1 tab PRN Q6HRS PRN 05/15/20 03:00 05/25/20 11:14 1 TAB Albumin Human 100 ml @ 100 mls/hr 1X ONCE 05/19/20 12:00 05/19/20 12:59 DC 05/19/20 11:56 100 MLS/HR Albuterol Sulfate (Ventolin Neb Soln) 2.5 mg PRN Q4HRS PRN 05/24/20 11:30 05/24/20 15:44 2.5 MG Albuterol/ Ipratropium (Duoneb) 3 ml TID 05/16/20 14:00 05/26/20 07:14 3 ML Aripiprazole (Abilify) 2 mg DAILY 05/16/20 11:00 05/26/20 08:48 2 MG Ascorbic Acid (Vitamin C) 500 mg BID 05/16/20 10:15 05/26/20 08:49 500 MG Aspirin (Aspirin Chewable) 81 mg [id number] 05/19/20 08:00 05/26/20 08:48 81 MG Aspirin (Ecotrin) 81 mg DAILY 05/16/20 10:00 05/19/20 07:46 DC 05/18/20 09:58 81 MG Atorvastatin Calcium (Lipitor) 80 mg QHS 05/16/20 21:00 05/25/20 20:50 80 MG Atropine Sulfate (ATROPINE 0.5mg SYRINGE) 0.5 mg PRN Q5MIN PRN 05/17/20 09:45 05/21/20 06:38 DC Budesonide (Pulmicort) 0.5 mg 1X ONCE 05/15/20 14:30 05/15/20 14:54 DC 05/15/20 15:48 0.5 MG Bupropion HCl (Wellbutrin Xl) 150 mg BID 05/16/20 10:14 05/26/20 08:48 150 MG Carbamazepine (TEGretol) 200 mg QHS 05/16/20 21:00 05/25/20 20:52 200 MG Chlorhexidine Gluconate (Peridex) 15 ml BID 05/17/20 21:00 05/19/20 07:45 DC 05/18/20 21:35 15 ML Dexmedetomidine HCl 400 mcg/ Sodium Chloride 100 ml @ 0 mls/hr CONT PRN 05/17/20 09:45 05/21/20 06:38 DC 05/17/20 14:16 16.6 MLS/HR Dextrose (Dextrose 50%-Water Syringe) 12.5 gm PRN Q15MIN PRN 05/15/20 07:30 Docusate Sodium (Colace) 100 mg DAILY 05/15/20 09:00 05/17/20 08:50 100 MG Dopamine HCl/ Dextrose 250 ml @ 13.538 mls/ hr CONT PRN 05/14/20 23:00 05/21/20 06:38 DC 05/15/20 20:57 27.075 MLS/HR Etomidate (Amidate) 20 mg 1X ONCE 05/17/20 17:45 05/17/20 17:46 DC 05/17/20 17:42 20 MG Fentanyl Citrate 30 ml @ 0 mls/hr CONT PRN 05/17/20 17:00 05/21/20 06:38 DC 05/20/20 00:52 2.5 MLS/HR Fentanyl Citrate (Fentanyl 2ml Vial) 50 mcg PRN Q3HRS PRN 05/15/20 03:00 05/26/20 03:09 50 MCG Furosemide (Lasix) 40 mg DAILY 05/25/20 09:00 05/26/20 08:49 40 MG Heparin Sodium (Porcine) (Heparin Sodium) 2,000 unit PRN Q6HRS PRN 05/18/20 12:15 05/20/20 07:37 DC Heparin Sodium/ Dextrose 250 ml @ 0 mls/hr CONT PRN 05/18/20 12:15 05/19/20 14:49 DC 05/18/20 12:19 9.6 MLS/HR Heparin Sodium/ Sodium Chloride (HEPARIN for ARTERIAL LINE FLUSH) 1,000 unit 1X ONCE 05/18/20 12:15 05/18/20 12:18 DC 05/18/20 12:15 1,000 UNIT Hydrocortisone Sodium Succinate (Solu-CORTEF) 50 mg Q8HRS 05/20/20 14:00 05/21/20 06:43 DC 05/21/20 06:20 50 MG Info (Anti-Coagulation Monitoring By Pharmacy) 1 each PRN DAILY PRN 05/15/20 08:00 05/20/20 07:40 DC 05/19/20 07:42 1 EACH Info (CONTRAST GIVEN -- Rx MONITORING) 1 each PRN DAILY PRN 05/14/20 20:15 05/16/20 20:14 DC Info (Icu Electrolyte Protocol) 1 ea CONT PRN PRN 05/21/20 07:30 05/24/20 13:34 DC Info (Non-Icu Electrolyte Protocol) 1 ea CONT PRN PRN 05/24/20 13:45 Insulin Glargine (Lantus Syringe) 32 unit QHS 05/24/20 21:00 05/25/20 20:53 32 UNIT Insulin Human Lispro (HumaLOG) 8 units TIDWMEALS 05/25/20 12:00 05/26/20 09:37 8 UNITS Insulin Human Regular 100 unit/ Sodium Chloride 101 ml @ 0 mls/hr CONT PRN 05/15/20 08:30 05/19/20 14:49 DC 05/15/20 21:18 13.029 MLS/HR Iodixanol (Visipaque 320) 100 ml 1X ONCE 05/18/20 12:15 05/18/20 12:18 DC Iohexol (Omnipaque 350 Mg/ml) 100 ml 1X ONCE 05/14/20 20:00 05/14/20 20:01 DC 05/14/20 20:03 100 ML Isosorbide Mononitrate (Ismo) 20 mg [id number] 05/24/20 15:30 05/26/20 08:52 20 MG Labetalol HCl (Normodyne Iv Push) 20 mg PRN Q2HR PRN 05/21/20 09:30 05/23/20 23:28 20 MG Lansoprazole (Prevacid) 30 mg DAILYAC 05/25/20 07:30 05/26/20 08:48 30 MG Lidocaine HCl (Lidocaine 1% 20ml Vial) 20 ml 1X ONCE 05/18/20 12:15 05/18/20 12:18 DC Lidocaine HCl (Xylocaine-Mpf 1% 2ml Vial) 2 ml STK-MED ONCE 05/18/20 10:07 05/18/20 10:08 DC Linezolid/Dextrose 300 ml @ 300 mls/hr Q12HR 05/17/20 09:00 05/20/20 08:02 DC 05/19/20 21:01 300 MLS/HR Lorazepam (Ativan Inj) 0.25 mg PRN Q6HRS PRN 05/21/20 16:30 05/25/20 19:24 0.25 MG Lorazepam (Ativan) 0.5 mg PRN Q8HRS PRN 05/16/20 10:00 05/21/20 06:38 DC 05/17/20 08:50 0.5 MG Magnesium Sulfate 50 ml @ 25 mls/hr 1X ONCE 05/25/20 08:30 05/25/20 10:29 DC 05/25/20 08:30 25 MLS/HR Metoprolol Succinate (Toprol Xl) 12.5 mg DAILY 05/16/20 10:15 05/19/20 09:40 DC 05/17/20 08:51 12.5 MG Metoprolol Tartrate (Lopressor Vial) 5 mg PRN Q8HRS PRN 05/21/20 19:45 05/23/20 20:49 5 MG Metoprolol Tartrate (Lopressor) 25 mg BID 05/24/20 21:00 05/26/20 08:49 25 MG Midazolam HCl 100 ml @ 0 mls/hr CONT PRN 05/17/20 17:00 05/21/20 06:38 DC 05/19/20 15:40 2 MLS/HR Midazolam HCl (Versed) 2 mg STK-MED ONCE 05/14/20 18:16 05/14/20 18:16 DC Nitroglycerin (Nitroglycerin) 200 mcg 1X ONCE 05/18/20 12:15 05/18/20 12:18 DC 05/18/20 12:15 200 MCG Non-Formulary Medication (GALCANEZUMAB (Emgality) 120mg/ 1ml syringe) 1 ea Q28D 05/24/20 10:45 05/24/20 11:53 1 EA Norepinephrine Bitartrate 32 mg/ Dextrose 282 ml @ 3.818 mls/ hr CONT PRN 05/15/20 15:00 05/21/20 06:38 DC 05/17/20 13:35 3.818 MLS/HR Norepinephrine Bitartrate 8 mg/ Dextrose 258 ml @ 13.971 mls/ hr CONT PRN 05/14/20 23:00 05/15/20 14:59 DC 05/15/20 11:02 82.427 MLS/HR Ondansetron HCl (Zofran) 4 mg PRN Q8HRS PRN 05/16/20 03:15 05/23/20 21:58 4 MG Pantoprazole Sodium (PROTONIX VIAL for IV PUSH) 40 mg DAILYAC 05/17/20 07:30 05/24/20 13:46 DC 05/24/20 05:41 40 MG Phenol (Chloraseptic) 1 spray PRN Q2HR PRN 05/23/20 10:15 05/23/20 22:59 1 SPRAY Piperacillin Sod/ Tazobactam Sod (Zosyn Per Pharmacy) 1 each PRN DAILY PRN 05/15/20 08:30 05/22/20 07:19 DC Piperacillin Sod/ Tazobactam Sod 2.25 gm/Sodium Chloride 50 ml @ 100 mls/hr Q6HRS 05/16/20 18:00 05/22/20 07:19 DC 05/22/20 05:16 100 MLS/HR Piperacillin Sod/ Tazobactam Sod 3.375 gm/Sodium Chloride 50 ml @ 100 mls/hr 1X ONCE 05/14/20 19:15 05/14/20 19:44 UNV Polyethylene Glycol (miraLAX PACKET) 17 gm PRN DAILY PRN 05/15/20 08:30 05/15/20 13:43 17 GM Potassium Bicarbonate (Potassium Effervescent Tablet) 20 meq 1X ONCE 05/25/20 10:15 05/25/20 10:19 DC 05/25/20 10:58 20 MEQ Potassium Chloride/Water 100 ml @ 100 mls/hr 1X ONCE 05/24/20 14:15 05/24/20 15:14 DC 05/24/20 14:15 100 MLS/HR Potassium Phosphate 13.6 mmol/Sodium Chloride 254.5333 ml @ 127.... Q2H 05/22/20 16:00 05/22/20 19:59 DC 05/22/20 19:12 127.267 MLS/HR Potassium Chloride (Klor-Con) 40 meq 1X ONCE 05/26/20 08:45 05/26/20 08:46 DC 05/26/20 08:47 40 MEQ Prasugrel (Effient) 30 mg 1X ONCE 05/18/20 12:15 05/18/20 12:18 DC 05/18/20 12:15 30 MG Propofol 100 ml @ 2.52 mls/hr CONT PRN 05/19/20 15:45 05/21/20 06:38 DC 05/20/20 09:19 10.08 MLS/HR Ringer's Solution 1,000 ml @ 100 mls/hr Q10H 05/16/20 14:45 05/17/20 10:47 DC 05/17/20 00:00 100 MLS/HR Sodium Bicarbonate 150 meq/Sterile Water 1,150 ml @ 125 mls/hr Q9H12M 05/15/20 09:00 05/16/20 09:07 DC 05/16/20 03:20 125 MLS/HR Sodium Monofluorophosphate (Fleet Adult) 133 ml DAILY PRN 05/15/20 13:45 05/16/20 13:24 133 ML Sodium Bicarbonate (Sodium Bicarb Adult 8.4% Syr) 50 meq 1X ONCE 05/17/20 19:15 05/17/20 19:16 DC 05/17/20 19:23 50 MEQ Sodium Chloride 1,000 ml @ 100 mls/hr Q10H 05/17/20 11:00 05/19/20 13:31 DC 05/18/20 16:55 100 MLS/HR Spironolactone (Aldactone) 25 mg DAILY 05/25/20 09:00 05/26/20 08:48 25 MG Succinylcholine Chloride (Anectine) 200 mg 1X ONCE 05/17/20 17:45 05/17/20 17:46 DC 05/17/20 17:42 200 MG Temazepam (Restoril) 15 mg PRN QHS PRN 05/25/20 18:15 05/25/20 20:52 15 MG Vancomycin HCl (Vanco Per Pharmacy) 1 each PRN DAILY PRN 05/15/20 08:30 05/17/20 08:51 DC 05/17/20 07:35 1 EACH Vancomycin HCl (Vancomycin Random Level) 1 each 1X ONCE 05/16/20 11:06 05/16/20 11:07 DC 05/16/20 11:06 1 EACH Vancomycin HCl (Vancomycin Trough Level) 1 each 1X ONCE 05/18/20 13:30 05/17/20 08:54 DC Vancomycin HCl (Vancomycin Oral Solution) 125 mg [id number] 05/25/20 09:00 05/26/20 08:48 125 MG Vancomycin HCl 1.25 gm/Sodium Chloride 250 ml @ 167 mls/hr Q24H 05/16/20 14:00 05/17/20 08:51 DC 05/16/20 14:05 167 MLS/HR Vasopressin 20 unit/Dextrose 101 ml @ 12 mls/hr CONT PRN 05/14/20 23:00 05/21/20 06:38 DC 05/16/20 19:48 12 MLS/HR Verapamil HCl (Verapamil) 5 mg STK-MED ONCE 05/18/20 11:00 05/19/20 11:04 DC Lab Laboratory Tests Test 05/25/20 16:37 05/25/20 20:39 05/26/20 06:10 05/26/20 06:40 Glucose (Fingerstick) 313 mg/dL (70-99) 235 mg/dL (70-99) Magnesium Level 1.9 mg/dL (1.8-2.4) White Blood Count 14.5 x10^3/uL (4.0-11.0) Red Blood Count 3.15 x10^6/uL (3.50-5.40) Hemoglobin 8.8 g/dL (12.0-15.5) Hematocrit 28.1 % (36.0-47.0) Mean Corpuscular Volume 89 fL (79-100) Mean Corpuscular Hemoglobin 28 pg (25-35) Mean Corpuscular Hemoglobin Concent 31 g/dL (31-37) Red Cell Distribution Width 17.6 % (11.5-14.5) Platelet Count 333 x10^3/uL (140-400) Neutrophils (%) (Auto) 64 % (31-73) Lymphocytes (%) (Auto) 23 % (24-48) Monocytes (%) (Auto) 10 % (0-9) Eosinophils (%) (Auto) 3 % (0-3) Basophils (%) (Auto) 0 % (0-3) Neutrophils # (Auto) 9.2 x10^3/uL (1.8-7.7) Lymphocytes # (Auto) 3.3 x10^3/uL (1.0-4.8) Monocytes # (Auto) 1.4 x10^3/uL (0.0-1.1) Eosinophils # (Auto) 0.4 x10^3/uL (0.0-0.7) Basophils # (Auto) 0.0 x10^3/uL (0.0-0.2) Sodium Level 138 mmol/L (136-145) Potassium Level 3.0 mmol/L (3.5-5.1) Chloride Level 101 mmol/L (98-107) Carbon Dioxide Level 31 mmol/L (21-32) Anion Gap 6 (6-14) Blood Urea Nitrogen 19 mg/dL (7-20) Creatinine 1.0 mg/dL (0.6-1.0) Estimated GFR (Cockcroft-Gault) 54.2 Glucose Level 155 mg/dL (70-99) Calcium Level 8.1 mg/dL (8.5-10.1) Test 05/26/20 06:51 05/26/20 11:05 Glucose (Fingerstick) 166 mg/dL (70-99) 265 mg/dL (70-99) Results All relevant outside records, renal labs, imaging studies, telemetry/EKG's were reviewed. Justicifation of Admission Dx: Justifications for Admission: Justification of Admission Dx: N/A HUA BENITEZ MD May 26, 2020 12:33
--- NOTE | 2020-05-26 14:30 | NUR ---
Discharge Note: SHAKA CORRAL [place] Discharge instructions and discharge home medications reviewed with Patient and a copy given. All questions have been answered and understanding verbalized. The following instructions and handouts were given: c diff, metoprolol, isosorbide Patient discharged to [facility] with transport via wheelchair.
[2020-07-10] MEDS ORDERED: LOPE2CAP PO (02:12)
[2020-07-10] MEDS ORDERED: AMLO-186 PO (02:12)
[2020-07-10] MEDS ORDERED: METO-239 PO (02:12)
[2020-07-10] MEDS ORDERED: ONDA4TAB12 PO (02:12)
[2020-07-10] MEDS ORDERED: LACT1CAP19 PO (02:12)
[2020-07-10] MEDS ORDERED: SPIR25TA5 PO (02:12)
[2020-07-10] MEDS ORDERED: ALBU2.5V8 INH (02:12)
[2020-07-10] MEDS ORDERED: DEXTROSE 50% 25 GM / 50ML DISP.SYRIN. IV PRN (09:45)
[2020-07-10] MEDS ORDERED: INSULIN LISPRO 300 UNITS/3 ML VIAL. SQ SCH (12:00)
[2020-07-14] MEDS ORDERED: FURO20TA3 PO (12:41)
[2020-09-09] MEDS ORDERED: LIPITOR80 MG PO (16:37)
[2020-09-09] MEDS ORDERED: AMIT75TA PO (16:37)
[2020-09-09] MEDS ORDERED: DICL100G54 TP (16:37)
[2020-09-09] MEDS ORDERED: PANT40TA77 PO (16:37)
[2020-09-09] MEDS ORDERED: BUPR300T92 PO (16:37)
[2020-09-10] MEDS ORDERED: ACET325T21 PO (23:57)
[2020-09-13] MEDS ORDERED: AMOX1TAB61 PO (09:41)
== END 2020-05-26 14:25 | DRG 853 ==
LOC: ER 17:56 → 1 WEST ICU 22:17 → 2 NORTH 05-22 18:40
PROVIDERS: ADMIT Internal Medicine; ATTEND Internal Medicine
PROC: 02HV33Z Insertion of Infusion Device into Superior Vena Cava, Percutaneous Approach (ICD-10-PCS; 2020-05-15)
PROC: 5A09457 Assistance with Respiratory Ventilation, 24-96 Consecutive Hours, Continuous Positive Airway Pressure (ICD-10-PCS; 2020-05-16)
PROC: 5A1945Z Respiratory Ventilation, 24-96 Consecutive Hours (ICD-10-PCS; 2020-05-17)
PROC: 0BH17EZ Insertion of Endotracheal Airway into Trachea, Via Natural or Artificial Opening (ICD-10-PCS; 2020-05-17)
PROC: 027034Z Dilation of Coronary Artery, One Artery with Drug-eluting Intraluminal Device, Percutaneous Approach (ICD-10-PCS; principal; 2020-05-18)
PROC: B2111ZZ Fluoroscopy of Multiple Coronary Arteries using Low Osmolar Contrast (ICD-10-PCS; 2020-05-18)
PROC: B2151ZZ Fluoroscopy of Left Heart using Low Osmolar Contrast (ICD-10-PCS; 2020-05-18)
PROC: 4A023N7 Measurement of Cardiac Sampling and Pressure, Left Heart, Percutaneous Approach (ICD-10-PCS; 2020-05-18)
PROC: 30233N1 Transfusion of Nonautologous Red Blood Cells into Peripheral Vein, Percutaneous Approach (ICD-10-PCS; 2020-05-19)
DX: A41.9 Sepsis, unspecified organism (principal); E10.10 Type 1 diabetes mellitus with ketoacidosis without coma; J96.01 Acute respiratory failure with hypoxia; I21.4 Non-ST elevation (NSTEMI) myocardial infarction; I50.43 Acute on chronic combined systolic (congestive) and diastolic (congestive) heart failure; N18.6 End stage renal disease; R65.21 Severe sepsis with septic shock; T82.855A Stenosis of coronary artery stent, initial encounter; E66.2 Morbid (severe) obesity with alveolar hypoventilation; E87.1 Hypo-osmolality and hyponatremia; I13.2 Hypertensive heart and chronic kidney disease with heart failure and with stage 5 chronic kidney disease, or end stage renal disease; J44.1 Chronic obstructive pulmonary disease with (acute) exacerbation; J98.11 Atelectasis; N17.9 Acute kidney failure, unspecified; D64.9 Anemia, unspecified; E10.22 Type 1 diabetes mellitus with diabetic chronic kidney disease; Z68.32 Body mass index [BMI] 32.0-32.9, adult; E78.00 Pure hypercholesterolemia, unspecified; E78.5 Hyperlipidemia, unspecified; E83.42 Hypomagnesemia; E87.6 Hypokalemia; F41.9 Anxiety disorder, unspecified; I25.10 Atherosclerotic heart disease of native coronary artery without angina pectoris; I25.5 Ischemic cardiomyopathy; K59.00 Constipation, unspecified; M81.0 Age-related osteoporosis without current pathological fracture; R13.10 Dysphagia, unspecified; F32.9 Major depressive disorder, single episode, unspecified; G43.909 Migraine, unspecified, not intractable, without status migrainosus; K21.9 Gastro-esophageal reflux disease without esophagitis; K57.90 Diverticulosis of intestine, part unspecified, without perforation or abscess without bleeding; R19.7 Diarrhea, unspecified; B96.89 Other specified bacterial agents as the cause of diseases classified elsewhere; Y83.1 Surgical operation with implant of artificial internal device as the cause of abnormal reaction of the patient, or of later complication, without mention of misadventure at the time of the procedure; Z20.822 Contact with and (suspected) exposure to COVID-19; Z68.39 Body mass index [BMI] 39.0-39.9, adult; Z79.4 Long term (current) use of insulin; Z82.49 Family history of ischemic heart disease and other diseases of the circulatory system; Z87.891 Personal history of nicotine dependence; Z90.710 Acquired absence of both cervix and uterus; Z90.81 Acquired absence of spleen; Z86.14 Personal history of Methicillin resistant Staphylococcus aureus infection; Z88.5 Allergy status to narcotic agent; Z88.8 Allergy status to other drugs, medicaments and biological substances
CPT/HCPCS: 36415; 36600; 71045; 71275; 74018; 74174; 80048; 80053; 80061; 80069; 80076; 80202; 81001; 82550; 82570; 82805; 82962; 83605; 83690; 83735; 83880; 84100; 84132; 84156; 84484; 85007; 85025; 85027; 85347; 85379; 85520; 85610; 86850; 86900; 86901; 86920; 87040; 87426; 87493; 92928; 93005; 93306; 93454; 93458; 94002; 94003; 94640; 94660; 94667; 94760; 96365; 96366; 96368; 99152; 99153; 99285; C1725; C1769; C1874; C1887; C1892; C9113; J0330; J1265; J1644; J1720; J1815; J1940; J2020; J2060; J2250; J2405; J2543; J2704; J3010; J3370; J3475; J3480; J3490; J7030; J7050; J7060; J7120; P9016; P9046; Q9967; U0003; 92526-GN; 92610-GN; 97110-GP; 97530-GO; 97530-GP; 97535-GO; C1713; G0378; J7613; J7626